=== PATIENT | male | born 1935 | race Caucasian/White ===

== ENCOUNTER 2017-12-26 12:02 | Inpatient (IN) | payer BC, OTHER ==
[2018-01-03] MEDS ORDERED: ceFAZolin SODIUM 1 GM VIAL IVPB ONE (15:50)
[2018-01-03] MEDS ORDERED: BUPIVACAINE HCL/PF 0.25% (2.5MG/ML) 10 ML VIAL ONE (16:25)
[2018-01-03] MEDS ORDERED: BUPIVACAINE LIPOSOME/PF (EXPAREL) 266 MG/20 ML VIAL NR ONE (16:45)
[2018-01-03] MEDS ORDERED: oxyCODONE HCL 5 MG TABLET PO PRN ×3 (17:39→17:45)
[2018-01-03] MEDS ORDERED: ACETAMINOPHEN 325 MG TABLET (FP) PO PRN (17:39)
[2018-01-03] MEDS ORDERED: ONDANSETRON 4 MG/2 ML VIAL IVPUSH PRN ×2 (17:39→21:57)
[2018-01-03] MEDS ORDERED: LACTATED RINGERS SOLUTION 1,000 ML IV SCH (17:45)
[2018-01-03] MEDS ORDERED: PROPOFOL 20 ML ONE ×11 (17:51→20:37)
[2018-01-03] MEDS ORDERED: GLYCOPYRROLATE 0.2 MG/1 ML VIAL ONE (17:59)
[2018-01-03] MEDS ORDERED: NEOSTIGMINE METHYLSULFATE 0.5 MG/ML - 10 ML MDV ONE (17:59)
[2018-01-03] MEDS ORDERED: PHENYLEPHRINE HCL 10 MG/1 ML SINGLE DOSE VIAL ONE (18:24)
[2018-01-03] MEDS ORDERED: ePHEDrine SULFATE 50 MG/1 ML AMPULE ONE (18:24)
--- NOTE | 2018-01-03 21:50 | PN ---
Progress Note (short form) - Note Progress Note: 82M s/p T12-L4 laminectomies, T9-pelvis PISF POD #0. -Admit to ICU post-op. -Pain control: per anaesthesia team; recommend MASTER WELDER; No NSAID's. -DVT PPx: - Mechanical only: JEB's, SCD's. -Incentive spirometry. -PT/OT/Rehab, OOB. -WBAT B/L LE. -q4h B/L LE NV checks. -Post-op antibiotics x 2 doses. -NPO until flatus. -f/u AM labs. -f/u drain output. -Care per ICU & medical hospitalist team. -Discharge planning: f/u 7-10 days after discharge at [facility] [place] office; call for appointment; . -Will follow. Mihir Roberts MD (Orthopaedic Surgery).
--- NOTE | 2018-01-03 21:55 | OP ---
Operative Note - Note: Operative Date: 01/03/18 Pre-Operative Diagnosis: L1, L3 compression fractures. Kyphosis. Spinal stenosis. Segmental instability. Progressive neurological decline Operation: 1. T12-L4 laminectomies. 2. T9-pelvis posterior instrumentation. 3. T9-S1 advertising intern-lateral arthrodesis. 4. Autograft. 5. Allograft. 6. Bone marrow aspirate Post-Operative Diagnosis: Same as Pre-op Surgeon: Mihir Roberts Flight Attendant/Inflight Manager: Shay Roberts Anesthesiologist/HOTEL SERVER: David Ayala Anesthesia: General Estimated Blood Loss (mls): 700 Drains & Tubes with Location: 1 x superficial drain Blood Volume Replaced (mls): 250 (Cell Saver) Fluid Volume Replaced (mls): 4,000 (Crystalloid) Operative Report Dictated: Yes
[2018-01-03] MEDS ORDERED: FUROSEMIDE 20 MG TABLET (FP) PO PRN (21:56)
[2018-01-03] MEDS ORDERED: PATIENT'S OWN MEDICATION (NON-FORMULARY) (Mometasone/Formoterol [Dulera 200 Mcg/5 Mcg Inha IH SCH (22:00)
[2018-01-03 22:45] LABS: HEMATOCRIT 31.6 % (35.4-49); HEMOGLOBIN 10.3 GM/dL (11.7-16.9); MCH 28.7 pg (25.7-33.7); MCHC 32.6 g/dl (32.0-35.9); MEAN CELL VOLUME 88.2 fl (80-96); MEAN PLT VOLUME 7.9 fl (7.5-11.1); PLATELET COUNT 225 K/MM3 (134-434); RBC 3.59 M/mm3 (4.00-5.60); RDW 13.9 % (11.9-15.9); WHITE BLOOD COUNT 4.4 K/mm3 (4.0-10.0)
[2018-01-03 23:09] LABS: ANION GAP 5 MMOL/L (8-16); BLOOD UREA NITROGEN 20 mg/dL (7-18); CALCIUM 8.3 mg/dL (8.5-10.1); CHLORIDE 103 mmol/L (98-107); CO2 30 mmol/L (21-32); CREATININE 1.1 mg/dL (0.7-1.3); GLUCOSE,RANDOM 146 mg/dL (74-106); POTASSIUM 5.4 mmol/L (3.5-5.1); SODIUM 138 mmol/L (136-145)
[2018-01-03] MEDS: ACETAMINOPHEN 1000 MG/100 ML VIAL (NON FORMULARY) IVPB SCH (23:25)
[2018-01-03] MEDS ORDERED: ACETAMINOPHEN INJECTION 100 ML IVPB ONE (23:33)
[2018-01-04] MEDS: ACETAMINOPHEN 1000 MG/100 ML VIAL (NON FORMULARY) IVPB SCH ×3 (00:19→13:28)
[2018-01-04] MEDS: CELECOXIB 200 MG CAPSULE PO SCH ×3 (00:19→21:14)
[2018-01-04] MEDS: GABAPENTIN 300 MG CAPSULE (FP) PO SCH ×2 (00:19→21:14)
[2018-01-04] MEDS: ALBUTEROL SO4 2.5/IPRATROPIUM 0.5 INH SOL 3 ML VIAL.NEB. NEB SCH ×4 (00:20→21:10)
--- NOTE | 2018-01-04 00:35 | CONSULT ---
Consultation: CONSULT REQUEST: We have been asked to medically evaluate this patient for critical care. HISTORY OF PRESENT ILLNESS: 82 y/o M w/PMH of COPD, chronic urinary retention, aortic aneurysm admitted to the ICU post-op s/p T12-L4 laminectomies, T9-pelvis PISF. Pt was lethargic s/p surgery and was unable to give history although when asked how he's doing he did respond by saying "I'm okay". He is arousable to physical stimuli but falls asleep almost immediately after waking. Otherwise further history was difficult to obtain and was unable to follow basic commands for neurological exam. According to previous notes in chart prior to surgery pt had pain in lower back for years causing him weakness in his legs and has fallen 4 times due to the weakness and uses a walker to ambulate. Estimated blood loss: 700 ml Cell-saver: 250 ml IVF replaced: 4 L Drains placed: 1 REVIEW OF SYSTEMS: unable to obtain due as pt is lethargic. PHYSICAL EXAMINATION Vital Signs Temperature 98 F 01/04/18 00:07 Pulse Rate 73 01/04/18 00:07 Respiratory Rate 15 01/04/18 00:07 Blood Pressure 134/61 01/04/18 00:07 O2 Sat by Pulse Oximetry (%) 93 L 01/04/18 00:07 GENERAL: Lethargic. Wakes only to physical stimuli but falls asleep immediately after waking. EYES:clera anicteric, conjunctiva clear. EARS, NOSE, THROAT: R hearing aid in place. LUNGS: Coarse breath sounds. Mild expiratory wheezing. Auscultated anteriorly. HEART: Difficult to appreciate over coarse breath sounds. And pt swatting stethoscope away when placed in aortic and pulmonic regions to listen to heart sounds. ABDOMEN: Soft, nontender, not distended. Hypoactive BS. LOWER EXTREMITIES: TEDs in place. Warm. NEUROLOGICAL: Lethargic. PSYCHIATRIC: Lethargic. SKIN: Warm, dry. Laboratory Results - last 24 hr 01/03/18 01/03/18 01/03/18 08:19 22:15 22:15 WBC 4.4 RBC 3.59 L Hgb 10.3 L Hct 31.6 L MCV 88.2 MCH 28.7 MCHC 32.6 RDW 13.9 Plt Count 225 MPV 7.9 Sodium 138 Potassium 5.4 H D Chloride 103 Carbon Dioxide 30 Anion Gap 5 L BUN 20 H Creatinine 1.1 Creat Clearance w eGFR > 60 Random Glucose 146 H D Calcium 8.3 L Blood Type A POSITIVE Antibody Screen Negative Crossmatch IS Only See Detail Active Medications Generic Name Dose Route Start Last Admin Trade Name Freq PRN Reason Stop Dose Admin Acetaminophen 650 mg 01/03/18 17:39 Tylenol - PO Q4H PRN Pain-PACU ORDER X 2 DOSES ONLY Acetaminophen 1,000 mg 01/03/18 22:00 01/03/18 23:25 Ofirmev Injection - IVPB 01/04/18 14:01 1,000 mg Q8H SABINA Administration Albuterol/Ipratropium 1 amp 01/03/18 22:15 Duoneb - NEB RTID SABINA Celecoxib 200 mg 01/03/18 22:00 Celebrex - PO BID SABINA Furosemide 20 mg 01/03/18 21:56 Lasix - PO DAILY PRN SWELLING Gabapentin 300 mg 01/03/18 22:00 Neurontin - PO HS SABINA Lactated Ringer's 1,000 mls @ 100 mls/hr 01/03/18 22:00 01/04/18 00:00 Lactated Ringers Solution IV 100 mls/hr ASDIR SABINA Administration Cefazolin Sodium/Dextrose 2 gm in 50 mls @ 100 mls/hr 01/04/18 04:00 Ancef 2 Gm Premixed Ivpb - IVPB 01/04/18 12:29 Q8H SABINA Non-Formulary Medication 200 mg 01/03/18 22:00 Cefpodoxime Proxetil PO BID SABINA Non-Formulary Medication 2 inh 01/03/18 22:00 Mometasone/Formoterol [Dulera 200 Mcg/5 Mcg Inhaler] IH BID SABINA Ondansetron HCl 4 mg 01/03/18 21:57 Zofran Injection IVPUSH Q6H PRN NAUSEA AND/OR VOMITING Oxycodone HCl 5 mg 01/03/18 17:39 Roxicodone - PO Q4H PRN PAIN LEVEL 1 - 3 Oxycodone HCl 10 mg 01/03/18 17:39 Roxicodone - PO Q4H PRN PAIN LEVEL 4 - 6 Oxycodone HCl 15 mg 01/03/18 17:45 Roxicodone - PO Q4H PRN PAIN LEVEL 7 - 10 Oxycodone HCl 10 mg 01/04/18 12:01 Oxycontin - PO 01/11/18 12:00 BID SABINA Prednisone 5 mg 01/04/18 10:00 Deltasone - PO DAILY [facility] ASSESSMENT/PLAN: 82 y/o M w/PMH of COPD, chronic urinary retention, aortic aneurysm admitted to the ICU post-op s/p T12-L4 laminectomies, T9-pelvis PISF. 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 Self catheterizes at home. -DVT ppx with SCDs, TEDss -Anemia at baseline, monitor H/H -Benadryl 25 mg IV PRN x1 for pruritis -Home meds restarted -Alb nebs -LR @ 100ml/hr Visit type - Emergency Visit Emergency Visit: No - New Patient This patient is new to me today: Yes Date on this admission: 01/04/18 - Critical Care Critical Care patient: Yes Total Critical Care Time (in minutes): 35 Critical Care Statement: The care of this patient involved high complexity decision making to prevent further life threatening deterioration of the patient 's condition and/or to evaluate & treat vital organ system(s) failure or risk of failure.
[2018-01-04] MEDS ORDERED: ceFAZolin 2 GRAM PREMIX BAG IVPB SCH (04:00)
[2018-01-04] MEDS: CEFAZOLIN 2 GM/D5W 2 GM/50 ML ML IVPB SCH ×2 (05:50→11:25)
[2018-01-04 06:22] LABS: HEMATOCRIT 28.5 % (35.4-49); HEMOGLOBIN 9.2 GM/dL (11.7-16.9); MCH 28.4 pg (25.7-33.7); MCHC 32.2 g/dl (32.0-35.9); MEAN CELL VOLUME 88.1 fl (80-96); MEAN PLT VOLUME 7.9 fl (7.5-11.1); PLATELET COUNT 187 K/MM3 (134-434); RBC 3.24 M/mm3 (4.00-5.60); RDW 13.8 % (11.9-15.9); WHITE BLOOD COUNT 5.7 K/mm3 (4.0-10.0)
--- NOTE | 2018-01-04 06:35 | OP ---
DATE OF OPERATION: 01/03/2018 SURGEON: Mihir Roberts M.D. UNDER PRESSER: Shay Roberts M.D. PREOPERATIVE DIAGNOSIS: Compression fracture L1, compression fracture L3 with associated kyphosis, spinal stenosis at each level, segmental instability, and progressive neurological decline. 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 ANESTHESIA: General. ANTIBIOTICS GIVEN: 2 g Kefzol; 1 g Kefzol given at the time of instrumentation and 1 g Kefzol given at the end of the procedure. BLOOD LOSS: About 800 mL, 350 mL given back to him. OPERATION PERFORMED: 1. Laminectomy T12 to L4. 2. Pedicle screw instrumentation T9 to S1. 3. Lumbar pelvic fixation and instrumentation. 4. Posterolateral arthrodesis T9 to S1. 5. Holman-Palomo osteotomy L1-2 and L3-4. 6. Use of biplanar fluoroscopy as well as neuromonitoring. 7. Use of bone marrow concentrate and autologous and allograft. 8. Complex wound closure, 40 cm. OPERATION DETAILS: Patient was correctly identified, brought in operating room, placed prone on a Hugo table. The lumbar spine was prepped in routine manner with Betadine scrub solution, wiped with alcohol, DuraPrep applied. A window drape applied. Timeout was called. Imaging was available for intraoperative evaluation. Concerns anemia in the presence of a man with COPD and very soft bone, investigations for Osteopenia postoperative will be performed. Midline incision performed from the tip of the spinous process of T8 to the tip of the spinous process of S2. The subperiosteal dissection was performed predominantly with Bovie and Longo elevators down the spinous process, over the lamina, across to the tip of the transverse processes, both left and right-hand inside. The verification of levels was verified with anatomical guidelines as well as lateral fluoroscopic x-ray with a [place] between L4-5. The fracture levels were identified using lateral fluoroscopic x- ray and because of the severe stenosis seen on the MRI and CT scan, a decompression from T12 to L4 was performed with complete freeing of the entire theca; pulsatile dura noted following this. Once this had been performed, Holman-Palomo osteotomy was performed, one at the L2 and one at 4-5. This was to encourage removal of kyphosis. The laminectomy that was performed with utilization of Leksell rongeurs as well as Kerrison up-cuts and a complete freeing of cord performed. We elected not to do any anterior column reconstruction because of the presence of an aortic graft in situ for a previous abdominal aortic aneurysm. This was a stented graft, but the large false aneurysm was already noted on the scans. The pedicles of T9 to S1 were utilized for fixation. We left out the pedicles of L3 and L1. Each pedicle was drilled with a 4-5 drill bit, palpated with a ball-tipped feeler. Each screw was seated and measured in the lumbar spine 45 x 7.5 and in the thoracic spine 45 x 6.5. Each screw was tested with intraoperative neuromonitoring and found to be well above the safe parameters accordingly. Because of the flimsy bone in S1, we elected to seat 2 large 9.5 x 70 screws placed into the ileum both left and right-hand side. This was through a Collins type approach to the ileum. A large segment of bone was resected to bury the actual cap for each of these screws. Two rods were contoured and placed into the heads of the screws and were fastened with the appropriate torque device. The fixation of the screws was more fixing the metal to the spine rather than spine to the metal. One crosslink applied, all screws were applied with the torque device. The pelvic screw fixation was enhanced by 2 crosslinks providing solid fixation. The wounds were thoroughly lavaged. The bone grafting was performed as follows : 120 mL of marrow was aspirated from the left posterior ileum, this was spun down for the CD34 cells and mixed with the autologous bone which had been milled in a [place] mill and expanded with allograft. This gave a level bone grafting into the intertransverse plane on left and right hand side. The bone grafting was mixed with the stem cells accordingly. The closure was a complex wound closure follows; muscle 1 Vicryl, fascia 1 Vicryl, subcutaneous 1 and 2-0, skin alma, drainage one 18-inch Hemovac x1. Overall comment: Operation was tedious, difficult, because of the deformity that was a hyperlordotic lumbar spine and marked kyphosis at the thoracolumbar junction, dangerous compression was dealt with with a complete uncomplicated freeing of the cord as noted above. Patient will be nursed in the ICU. For pain management, Duramorph and fentanyl was seeded intrathecally prior to skin incision, this by the anesthesia team, and then a combination of Marcaine and liposomal Marcaine was inserted into the lateral aspect of the foramina at each level operated on, hopefully to provide adequate pain management accordingly. MD SAMARA Dunn/[id number] MTDD
[2018-01-04 06:41] LABS: ANION GAP 5 MMOL/L (8-16); BLOOD UREA NITROGEN 22 mg/dL (7-18); CALCIUM 8.2 mg/dL (8.5-10.1); CHLORIDE 103 mmol/L (98-107); CO2 30 mmol/L (21-32); CREATININE 0.9 mg/dL (0.7-1.3); GLUCOSE,RANDOM 111 mg/dL (74-106); SODIUM 138 mmol/L (136-145)
[2018-01-04] MEDS: LACTATED RINGERS SOLUTION 1,000 ML IV SCH ×3 (07:32→21:14)
[2018-01-04] MEDS ORDERED: diphenhydrAMINE HCL 25 MG CAPSULE (FP) PO ONE (08:00)
[2018-01-04] MEDS ORDERED: PT OWN MED DRAWER 7, Y5N ONE ×4 (09:20→21:11)
[2018-01-04] MEDS: BUDESONIDE/FORMETEROL FUMARATE 160/4.5 mcg INHALER IH SCH ×2 (09:47→21:14)
[2018-01-04] MEDS ORDERED: predniSONE 5 MG TABLET (UD) PO SCH (10:00)
--- NOTE | 2018-01-04 10:00 | PN ---
Physical Exam: SUBJECTIVE: Patient seen and examined at bedside. Feels well Denies any complaints Slept well Was not using incentive spirometer Denies flatus or bowel movement Uses O2 at home (3L NC) only at night when he sleeps. OBJECTIVE: Vital Signs Period Temp Pulse Resp BP Sys/Hyman Pulse Ox Last 24 Hr 97.6 F-98.3 F 64-92 13-22 96-147/41-87 90-96 GENERAL: The patient is awake, alert, and fully oriented, in no acute distress. HEAD: Normal with no signs of trauma. EYES: PERRL, extraocular movements intact, sclera anicteric ENT: Dry mucous membranes. NECK: Trachea midline, full range of motion, supple. LUNGS: Bilateral Rhonchi HEART: Regular rate and rhythm, S1, S2 ABDOMEN: Soft, nontender, nondistended, normoactive bowel sounds, no guarding. Ventral hernia EXTREMITIES: well-perfused, no edema. NEUROLOGICAL: Cranial nerves II through XII grossly intact. Normal speech, gait not observed. sensation intact in all extremities. strength 4/5 in bilateral lower extremities. Strength 5/5 in upper extremities. PSYCH: Normal mood, normal affect. SKIN: Warm, dry, normal turgor Laboratory Results - last 24 hr 01/03/18 01/03/18 01/03/18 08:19 22:15 22:15 WBC 4.4 RBC 3.59 L Hgb 10.3 L Hct 31.6 L MCV 88.2 MCH 28.7 MCHC 32.6 RDW 13.9 Plt Count 225 MPV 7.9 Sodium 138 Potassium 5.4 H D Chloride 103 Carbon Dioxide 30 Anion Gap 5 L BUN 20 H Creatinine 1.1 Creat Clearance w eGFR > 60 Random Glucose 146 H D Calcium 8.3 L Blood Type A POSITIVE Antibody Screen Negative Crossmatch IS Only See Detail 01/04/18 01/04/18 05:30 05:30 WBC 5.7 RBC 3.24 L Hgb 9.2 L Hct 28.5 L MCV 88.1 MCH 28.4 MCHC 32.2 RDW 13.8 Plt Count 187 MPV 7.9 Sodium 138 Potassium 5.0 Chloride 103 Carbon Dioxide 30 Anion Gap 5 L BUN 22 H Creatinine 0.9 Creat Clearance w eGFR > 60 Random Glucose 111 H D Calcium 8.2 L Blood Type Antibody Screen Crossmatch IS Only Active Medications Generic Name Dose Route Start Last Admin Trade Name Freq PRN Reason Stop Dose Admin Acetaminophen 650 mg 01/03/18 17:39 Tylenol - PO Q4H PRN Pain-PACU ORDER X 2 DOSES ONLY Acetaminophen 1,000 mg 01/03/18 22:00 01/04/18 05:50 Ofirmev Injection - IVPB 01/04/18 14:01 1,000 mg Q8H SABINA Administration Albuterol/Ipratropium 1 amp 01/03/18 22:15 01/04/18 08:34 Duoneb - NEB 1 amp RTID SABINA Administration Budesonide/Formoterol Fumarate 2 puff 01/04/18 10:00 Symbicort 160/4.5mcg - IH BID SABINA Celecoxib 200 mg 01/03/18 22:00 01/04/18 00:19 Celebrex - PO Not Given BID SABINA Furosemide 20 mg 01/03/18 21:56 Lasix - PO DAILY PRN SWELLING Gabapentin 300 mg 01/03/18 22:00 01/04/18 00:19 Neurontin - PO Not Given HS SABINA Lactated Ringer's 1,000 mls @ 100 mls/hr 01/03/18 22:00 01/04/18 07:32 Lactated Ringers Solution IV 100 mls/hr ASDIR SABINA Administration Cefazolin Sodium/Dextrose 2 gm in 50 mls @ 100 mls/hr 01/04/18 04:00 05:50 Ancef 2 Gm Premixed Ivpb - IVPB 01/04/18 12:29 100 mls/hr Q8H SABINA Administration Non-Formulary Medication 200 mg 01/03/18 22:00 Cefpodoxime Proxetil PO BID SABINA Ondansetron HCl 4 mg 01/03/18 21:57 Zofran Injection IVPUSH Q6H PRN NAUSEA AND/OR VOMITING Oxycodone HCl 5 mg 01/03/18 17:39 Roxicodone - PO Q4H PRN PAIN LEVEL 1 - 3 Oxycodone HCl 10 mg 01/03/18 17:39 Roxicodone - PO Q4H PRN PAIN LEVEL 4 - 6 Oxycodone HCl 15 mg 01/03/18 17:45 Roxicodone - PO Q4H PRN PAIN LEVEL 7 - 10 Oxycodone HCl 10 mg 01/04/18 12:01 Oxycontin - PO 01/11/18 12:00 BID SABINA Prednisone 5 mg 01/04/18 10:00 Deltasone - PO DAILY SABINA ASSESSMENT/PLAN: 82 year old male with a hx of COPD, chronic urinary retention, spinal stenosis, and multiple falls is post op day 1 s/p T12-L4 laminectomies, T9-pelvis posterior instrumentation, T9-S1 corner former-lateral arthrodesis, Autograft, Allograft, and Bone marrow aspirate. Lower back pain: L1, L3 compression fractures, Kyphosis, Spinal stenosis, Segmental instability, Progressive neurological decline POD #1 s/p T12-L4 laminectomies, T9-pelvis posterior instrumentation, T9-S1 corner former-lateral arthrodesis, Autograft, Allograft, and Bone marrow aspirate. Patient tolerated the procedure well continue pain control with oxycontin BID and oxycodone PRN PT consult Incentive spirometry-taught patient how to use it. COPD not in exacerbation: Continue Duonebs patient on Dulera at home will order symbicort O2 PRN and while sleeping continue prednisone Chronic Urinary Retention Continue holder catheter for now To continue self catheterizing at home FEN LR @ 100ml/hr. Hold home dose of lasix for PRN leg swelling No electrolyte issues NPO for now will advance to clears when has flatus. Will Prophylaxis SCDs-No chemical PPx per spine surgery Protonix for GERD PT consult Case discussed with Dr. Woo Visit type - Emergency Visit Emergency Visit: Yes ED Registration Date: 01/03/18 Care time: The patient presented to the Emergency Department on the above date and was hospitalized for further evaluation of their emergent condition. - New Patient This patient is new to me today: Yes Date on this admission: 01/04/18 - Critical Care Critical Care patient: Yes Total Critical Care Time (in minutes): 45 Critical Care Statement: The care of this patient involved high complexity decision making to prevent further life threatening deterioration of the patient 's condition and/or to evaluate & treat vital organ system(s) failure or risk of failure.
--- NOTE | 2018-01-04 11:23 | PN ---
Physical Exam: SUBJECTIVE: Patient seen and examined. Pt. denies nausea and vomiting. Pt. has not needed pain medications except Tylenol. Pt. denies numbness, tingling SOB, chest pain or pain anywhere at this time. Pt. is hard of hearing. Pt. seems confused, forgets that his hearing aid is on his desk and thinks it is someone else's hearing aid. Pt. denies passing stool or gas. Spoke with the Pt.s daughter in the afternoon, and she as well as the Pt. say that the combination of oxycodone and trazodone is what causes the patient to get "loopy." Pt. is apprehensive about taking any oxycodone for that reason. Pt. has not received his home dose of trazodone yet during this hospital course. OBJECTIVE: Vital Signs Period Temp Pulse Resp BP Sys/Hyman Pulse Ox Last 24 Hr 97.6 F-98.3 F 64-92 13-22 96-147/41-87 90-96 GENERAL: The patient is awake A&O x2, very hard of hearing, lying in bed in mild distress. ENT: Ears normal, nares patent, dry mucous membranes. LUNGS: Coarse breath sounds, diffuse crackles heard anteriorly, no accessory muscle use. HEART: Iregular rate and rhythm difficult to hear over coarse breath sounds ABDOMEN: Soft, nontender, nondistended, normoactive bowel sounds, no guarding, no rebound EXTREMITIES: 2+ dorsal pedal pulses, cool to touch, well-perfused, no edema. PSYCH: Normal mood, normal affect. SKIN: Warm, dry, normal turgor, no rashes or lesions noted Laboratory Results - last 24 hr 01/03/18 01/03/18 01/03/18 08:19 22:15 22:15 WBC 4.4 RBC 3.59 L Hgb 10.3 L Hct 31.6 L MCV 88.2 MCH 28.7 MCHC 32.6 RDW 13.9 Plt Count 225 MPV 7.9 Sodium 138 Potassium 5.4 H D Chloride 103 Carbon Dioxide 30 Anion Gap 5 L BUN 20 H Creatinine 1.1 Creat Clearance w eGFR > 60 Random Glucose 146 H D Calcium 8.3 L Blood Type A POSITIVE Antibody Screen Negative Crossmatch IS Only See Detail 01/04/18 01/04/18 05:30 05:30 WBC 5.7 RBC 3.24 L Hgb 9.2 L Hct 28.5 L MCV 88.1 MCH 28.4 MCHC 32.2 RDW 13.8 Plt Count 187 MPV 7.9 Sodium 138 Potassium 5.0 Chloride 103 Carbon Dioxide 30 Anion Gap 5 L BUN 22 H Creatinine 0.9 Creat Clearance w eGFR > 60 Random Glucose 111 H D Calcium 8.2 L Blood Type Antibody Screen Crossmatch IS Only Active Medications Current Medications Acetaminophen (Tylenol -) 650 mg PO Q4H PRN PRN Reason: Pain-PACU ORDER X 2 DOSES ONLY Acetaminophen (Ofirmev Injection -) 1,000 mg IVPB Q8H [facility] Stop: 01/04/18 14:01 Last Admin: 01/04/18 05:50 Dose: 1,000 mg Albuterol/Ipratropium (Duoneb -) 1 amp NEB RTID [facility] Last Admin: 01/04/18 08:34 Dose: 1 amp Budesonide/Formoterol Fumarate (Symbicort 160/4.5mcg -) 2 puff IH BID [facility] Last Admin: 01/04/18 09:47 Dose: 2 puff Celecoxib (Celebrex -) 200 mg PO BID [facility] Last Admin: 01/04/18 09:46 Dose: 200 mg Gabapentin (Neurontin -) 300 mg PO HS [facility] Last Admin: 01/04/18 00:19 Dose: Not Given Lactated Ringer's (Lactated Ringers Solution) 1,000 mls @ 100 mls/hr IV ASDIR [facility] Last Admin: 01/04/18 07:32 Dose: 100 mls/hr Cefazolin Sodium/Dextrose (Ancef 2 Gm Premixed Ivpb -) 2 gm in 50 mls @ 100 mls /hr IVPB Q8H [facility] Stop: 01/04/18 12:29 Last Admin: 01/04/18 05:50 Dose: 100 mls/hr Methylprednisolone Sodium Succinate (Solu-Medrol -) 40 mg IVPUSH Q8H-IV [facility] Non-Formulary Medication (Cefpodoxime Proxetil) 200 mg PO BID [facility] Ondansetron HCl (Zofran Injection) 4 mg IVPUSH Q6H PRN PRN Reason: NAUSEA AND/OR VOMITING Oxycodone HCl (Roxicodone -) 5 mg PO Q4H PRN PRN Reason: PAIN LEVEL 1 - 3 Oxycodone HCl (Roxicodone -) 10 mg PO Q4H PRN PRN Reason: PAIN LEVEL 4 - 6 Oxycodone HCl (Roxicodone -) 15 mg PO Q4H PRN PRN Reason: PAIN LEVEL 7 - 10 Oxycodone HCl (Oxycontin -) 10 mg PO BID SABINA Stop: 01/11/18 12:00 Pantoprazole Sodium (Protonix -) 40 mg PO DAILY SABINA ASSESSMENT/PLAN: 82 y/o M w/PMH of COPD, chronic urinary retention, aortic aneurysm admitted to the ICU post-op s/p T12-L4 laminectomies, T9-pelvis PISF. 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 is restarted on Trazodone as noted above. Post-op drain is draining serosanquinous fluid PT/OT; WBAT q4h B/L LE neurovascular checks Received 1/2 post-op doses of Abx. (Ancef 2 gm) -Pruritis resolving c/w Benadryl 25mg PRN of pruritis (may be 2/2 Bupivacaine) can go up to 50mg if needed monitor for worsening symptoms #Pulmonary -COPD Duo Nebs qhH PRN Start Solumedrol 40mg q8H Hold home Prednisone 5mg c/w Incentive Spirometry q15 min f/u CXR #Nephrology -Chronic urinary retention Reyes in place draining clear nacho colored urine with good urine output #Neurology -Hx. of Shingles c/w Gabapentin 300mg PO HS #Gastroenterology -Nausea and Vomiting Ondansetron 4mg q6H PRN -Constipation Miralax PO, if Pt. does not have bowel movement can increase to BID #Cardiovascular -Anemia Pt. is currently at baseline Will monitor H/H #F/E/N -NPO until Pt. passes flatus -monitor electrolytes and replete as needed -Lactated Ringer @ 100mls/hr -received 4 L fluids noy-operatively #DVT PPx. SCDs ONLY No NSAIDs -per Dr. Roberts Visit type - Emergency Visit Emergency Visit: No - New Patient This patient is new to me today: Yes Date on this admission: 01/04/18 - Critical Care Critical Care patient: No - Discharge Referral Referred to [facility] Med P.C.: No
[2018-01-04] MEDS: methylPREDNISolone NA SUCC 40 MG/1 ML VIAL IVPUSH SCH ×2 (11:25→17:13)
[2018-01-04] MEDS: PANTOPRAZOLE 40 MG TABLET (FP) PO SCH (11:25)
--- NOTE | 2018-01-04 11:36 | PN ---
Teaching Attending Note Name of Resident: Mihir James ATTENDING PHYSICIAN STATEMENT I saw and evaluated the patient. I reviewed the resident's note and discussed the case with the resident. I agree with the resident's findings and plan as documented. SUBJECTIVE: Pt seen and examined in the ICU. No pain at this time. Denies shortness of breath or chest pain but with audible rhonchi. OBJECTIVE: Vital Signs Period Temp Pulse Resp BP Sys/Hyman Pulse Ox Last 24 Hr 97.6 F-98.3 F 64-92 13-22 96-147/41-87 90-96 Intake & Output 01/01/18 01/02/18 01/03/18 01/04/18 23:59 23:59 23:59 23:59 Intake Total 4400 850 Output Total 3800 2075 Balance 600 -1225 Weight 93.638 kg Gen: mildly tachypneic at rest Heart: RRR Lung: bilateral rhonchi Abd: soft, nontender Ext: no edema Drain with serosanguinous fluid CBC, BMP 01/04/18 05:30 01/04/18 05:30 Active Medications Acetaminophen (Tylenol -) 650 mg PO Q4H PRN PRN Reason: Pain-PACU ORDER X 2 DOSES ONLY Acetaminophen (Ofirmev Injection -) 1,000 mg IVPB Q8H [facility] Stop: 01/04/18 14:01 Last Admin: 01/04/18 05:50 Dose: 1,000 mg Albuterol/Ipratropium (Duoneb -) 1 amp NEB RTID [facility] Last Admin: 01/04/18 08:34 Dose: 1 amp Budesonide/Formoterol Fumarate (Symbicort 160/4.5mcg -) 2 puff IH BID [facility] Last Admin: 01/04/18 09:47 Dose: 2 puff Celecoxib (Celebrex -) 200 mg PO BID [facility] Last Admin: 01/04/18 09:46 Dose: 200 mg Gabapentin (Neurontin -) 300 mg PO HS [facility] Last Admin: 01/04/18 00:19 Dose: Not Given Lactated Ringer's (Lactated Ringers Solution) 1,000 mls @ 100 mls/hr IV ASDIR [facility] Last Admin: 01/04/18 07:32 Dose: 100 mls/hr Cefazolin Sodium/Dextrose (Ancef 2 Gm Premixed Ivpb -) 2 gm in 50 mls @ 100 mls /hr IVPB Q8H [facility] Stop: 01/04/18 12:29 Last Admin: 01/04/18 11:25 Dose: 100 mls/hr Methylprednisolone Sodium Succinate (Solu-Medrol -) 40 mg IVPUSH Q8H-IV [facility] Last Admin: 01/04/18 11:25 Dose: 40 mg Non-Formulary Medication (Cefpodoxime Proxetil) 200 mg PO BID [facility] Ondansetron HCl (Zofran Injection) 4 mg IVPUSH Q6H PRN PRN Reason: NAUSEA AND/OR VOMITING Oxycodone HCl (Roxicodone -) 5 mg PO Q4H PRN PRN Reason: PAIN LEVEL 1 - 3 Oxycodone HCl (Roxicodone -) 10 mg PO Q4H PRN PRN Reason: PAIN LEVEL 4 - 6 Oxycodone HCl (Roxicodone -) 15 mg PO Q4H PRN PRN Reason: PAIN LEVEL 7 - 10 Oxycodone HCl (Oxycontin -) 10 mg PO BID [facility] Stop: 01/11/18 12:00 Pantoprazole Sodium (Protonix -) 40 mg PO DAILY [facility] Last Admin: 01/04/18 11:25 Dose: 40 mg ASSESSMENT AND PLAN: Lumbar Compression Fractures s/p T12-L4 Laminectomies/T9-pelvis instrumentation/T9-S1 posterior lateral arthrodesis Acute COPD Exacerbation Chronic Hypoxic Respiratory Failure - start IV medrol - inhaled bronchodilators standing and PRN - check CXR - pain control - incentive spirometry - on empiric antibiotics - monitor drain output - O2 to keep SpO2 >90% - PO when flatus - d/c holder when OOB - DVT prophylaxis
[2018-01-04] MEDS: oxyCODONE HCL 10 MG SUSTAINED ACTING TABLET PO SCH ×2 (12:00→21:14)
--- NOTE | 2018-01-04 12:32 | PN ---
Teaching Attending Note Name of Resident: Nahid Mata ATTENDING PHYSICIAN STATEMENT I saw and evaluated the patient. I reviewed the resident's note and discussed the case with the resident. I agree with the resident's findings and plan as documented. SUBJECTIVE: Patient doing well. He denies pain, SOB. Not passing flatus, but denies abdominal pain, nausea. OBJECTIVE: Vital Signs Period Temp Pulse Resp BP Sys/Hyman Pulse Ox Last 24 Hr 97.6 F-98.3 F 64-92 13-22 96-147/41-87 90-96 HEART: S1S2, RRR LUNGS: Bilateral rhonchi ABDOMEN: Soft, non-tender, non-distended, normal BS EXTREMITIES: No edema Laboratory Results - last 24 hr 01/03/18 01/03/18 01/03/18 08:19 22:15 22:15 WBC 4.4 RBC 3.59 L Hgb 10.3 L Hct 31.6 L MCV 88.2 MCH 28.7 MCHC 32.6 RDW 13.9 Plt Count 225 MPV 7.9 Sodium 138 Potassium 5.4 H D Chloride 103 Carbon Dioxide 30 Anion Gap 5 L BUN 20 H Creatinine 1.1 Creat Clearance w eGFR > 60 Random Glucose 146 H D Calcium 8.3 L Blood Type A POSITIVE Antibody Screen Negative Crossmatch IS Only See Detail 01/04/18 01/04/18 05:30 05:30 WBC 5.7 RBC 3.24 L Hgb 9.2 L Hct 28.5 L MCV 88.1 MCH 28.4 MCHC 32.2 RDW 13.8 Plt Count 187 MPV 7.9 Sodium 138 Potassium 5.0 Chloride 103 Carbon Dioxide 30 Anion Gap 5 L BUN 22 H Creatinine 0.9 Creat Clearance w eGFR > 60 Random Glucose 111 H D Calcium 8.2 L Blood Type Antibody Screen Crossmatch IS Only Current Medications Generic Name Dose Route Start Last Admin Trade Name Freq PRN Reason Stop Dose Admin Acetaminophen 650 mg 01/03/18 17:39 Tylenol - PO Q4H PRN Pain-PACU ORDER X 2 DOSES ONLY Acetaminophen 1,000 mg 01/03/18 22:00 01/04/18 05:50 Ofirmev Injection - IVPB 01/04/18 14:01 1,000 mg Q8H [facility] Administration Albuterol/Ipratropium 1 amp 01/03/18 22:15 01/04/18 08:34 Duoneb - NEB 1 amp RTID [facility] Administration Budesonide/Formoterol Fumarate 2 puff 01/04/18 10:00 01/04/18 09:47 Symbicort 160/4.5mcg - IH 2 puff BID [facility] Administration Celecoxib 200 mg 01/03/18 22:00 01/04/18 09:46 Celebrex - PO 200 mg BID [facility] Administration Gabapentin 300 mg 01/03/18 22:00 01/04/18 00:19 Neurontin - PO Not Given HS [facility] Lactated Ringer's 1,000 mls @ 100 mls/hr 01/03/18 22:00 01/04/18 07:32 Lactated Ringers Solution IV 100 mls/hr ASDIR [facility] Administration Methylprednisolone Sodium Succinate 40 mg 01/04/18 11:00 01/04/18 11:25 Solu-Medrol - IVPUSH 40 mg Q8H-IV [facility] Administration Non-Formulary Medication 200 mg 01/03/18 22:00 Cefpodoxime Proxetil PO BID [facility] Ondansetron HCl 4 mg 01/03/18 21:57 Zofran Injection IVPUSH Q6H PRN NAUSEA AND/OR VOMITING Oxycodone HCl 5 mg 01/03/18 17:39 Roxicodone - PO Q4H PRN PAIN LEVEL 1 - 3 Oxycodone HCl 10 mg 01/03/18 17:39 Roxicodone - PO Q4H PRN PAIN LEVEL 4 - 6 Oxycodone HCl 15 mg 01/03/18 17:45 Roxicodone - PO Q4H PRN PAIN LEVEL 7 - 10 Oxycodone HCl 10 mg 01/04/18 12:01 Oxycontin - PO 01/11/18 12:00 BID [facility] Pantoprazole Sodium 40 mg 01/04/18 11:00 01/04/18 11:25 Protonix - PO 40 mg DAILY [facility] Administration ASSESSMENT AND PLAN: This is an 82 year old man a history of COPD, chronic urinary retention 1. Lumbar spinal stenosis, lumbar compression fractures, lumbar kyphosis - s/p T12-L4 laminectomies, T9-pelvis posterior instrumentation, T9-S1 posterolateral arthrodesis 01/03 - Pain control - Incentive spirometer - Ambulation - Physical therapy 2. Acute exacerbation of COPD - SoluMedrol started - Continue Symbicort, DuoNeb, oxygen 3. Chronic hypoxic respiratory failure - Oxygen to maintain saturation >90% 4. Anemia - Likely acute blood loss on chronic anemia - Monitor hemoglobin 5. Chronic urinary retention - Has Reyes catheter - At home, he does self-catheterization
--- NOTE | 2018-01-04 13:12 | PN ---
Progress Note, Physician Chief Complaint: day #1 s/p complex spine surgery, with duramorph/fentanyl spinal - Current Medication List Current Medications: Active Medications Acetaminophen (Tylenol -) 650 mg PO Q4H PRN PRN Reason: Pain-PACU ORDER X 2 DOSES ONLY Acetaminophen (Ofirmev Injection -) 1,000 mg IVPB Q8H [facility] Stop: 01/04/18 14:01 Last Admin: 01/04/18 05:50 Dose: 1,000 mg Albuterol/Ipratropium (Duoneb -) 1 amp NEB RTID [facility] Last Admin: 01/04/18 08:34 Dose: 1 amp Budesonide/Formoterol Fumarate (Symbicort 160/4.5mcg -) 2 puff IH BID [facility] Last Admin: 01/04/18 09:47 Dose: 2 puff Celecoxib (Celebrex -) 200 mg PO BID [facility] Last Admin: 01/04/18 09:46 Dose: 200 mg Gabapentin (Neurontin -) 300 mg PO HS [facility] Last Admin: 01/04/18 00:19 Dose: Not Given Lactated Ringer's (Lactated Ringers Solution) 1,000 mls @ 100 mls/hr IV ASDIR [facility] Last Admin: 01/04/18 07:32 Dose: 100 mls/hr Methylprednisolone Sodium Succinate (Solu-Medrol -) 40 mg IVPUSH Q8H-IV [facility] Last Admin: 01/04/18 11:25 Dose: 40 mg Non-Formulary Medication (Cefpodoxime Proxetil) 200 mg PO BID [facility] Ondansetron HCl (Zofran Injection) 4 mg IVPUSH Q6H PRN PRN Reason: NAUSEA AND/OR VOMITING Oxycodone HCl (Roxicodone -) 5 mg PO Q4H PRN PRN Reason: PAIN LEVEL 1 - 3 Oxycodone HCl (Roxicodone -) 10 mg PO Q4H PRN PRN Reason: PAIN LEVEL 4 - 6 Oxycodone HCl (Roxicodone -) 15 mg PO Q4H PRN PRN Reason: PAIN LEVEL 7 - 10 Oxycodone HCl (Oxycontin -) 10 mg PO BID [facility] Stop: 01/11/18 12:00 Pantoprazole Sodium (Protonix -) 40 mg PO DAILY [facility] Last Admin: 01/04/18 11:25 Dose: 40 mg - Objective Vital Signs: Vital Signs Temperature 98.0 F 01/04/18 12:00 Pulse Rate 74 01/04/18 12:00 Respiratory Rate 14 01/04/18 12:00 Blood Pressure 116/53 01/04/18 12:00 O2 Sat by Pulse Oximetry (%) 93 L 01/04/18 00:07 Labs: CBC, BMP 01/04/18 05:30 01/04/18 05:30 Assessment/Plan Pt resting comfortably in bed, with minimal to no pain. No apparent anesthetic issues/complications
[2018-01-04] MEDS: POLYETHYLENE GLYCOL 3350 119 GM BTL PO SCH (14:36)
[2018-01-04] MEDS ORDERED: ACETAMINOPHEN 1000 MG/100 ML VIAL (NON FORMULARY) IVPB ONE (20:53)
[2018-01-05] MEDS: methylPREDNISolone NA SUCC 40 MG/1 ML VIAL IVPUSH SCH ×2 (02:16→09:24)
[2018-01-05 06:34] LABS: HEMATOCRIT 27.9 % (35.4-49); HEMOGLOBIN 9.2 GM/dL (11.7-16.9); MCH 28.7 pg (25.7-33.7); MCHC 32.9 g/dl (32.0-35.9); MEAN PLT VOLUME 7.6 fl (7.5-11.1); PLATELET COUNT 182 K/MM3 (134-434); RBC 3.21 M/mm3 (4.00-5.60); RDW 13.7 % (11.9-15.9); WHITE BLOOD COUNT 5.3 K/mm3 (4.0-10.0)
[2018-01-05 06:52] LABS: ANION GAP 9 MMOL/L (8-16); BLOOD UREA NITROGEN 20 mg/dL (7-18); CALCIUM 8.3 mg/dL (8.5-10.1); CHLORIDE 103 mmol/L (98-107); CO2 27 mmol/L (21-32); CREATININE 0.9 mg/dL (0.7-1.3); GLUCOSE,RANDOM 131 mg/dL (74-106); MAGNESIUM 2.1 mg/dL (1.8-2.4); PHOSPHOROUS 2.7 mg/dL (2.5-4.9); POTASSIUM 4.5 mmol/L (3.5-5.1); SODIUM 139 mmol/L (136-145)
[2018-01-05] MEDS: ALBUTEROL SO4 2.5/IPRATROPIUM 0.5 INH SOL 3 ML VIAL.NEB. NEB SCH ×3 (08:13→20:54)
[2018-01-05] MEDS: oxyCODONE HCL 10 MG SUSTAINED ACTING TABLET PO SCH ×2 (09:09→21:25)
[2018-01-05] MEDS ORDERED: PT OWN MED DRAWER 7, Y5N ONE ×5 (09:20→21:47)
[2018-01-05] MEDS: BUDESONIDE/FORMETEROL FUMARATE 160/4.5 mcg INHALER IH SCH ×2 (09:22→21:24)
[2018-01-05] MEDS: PANTOPRAZOLE 40 MG TABLET (FP) PO SCH (09:23)
[2018-01-05] MEDS: CELECOXIB 200 MG CAPSULE PO SCH ×2 (09:23→21:24)
[2018-01-05] MEDS: POLYETHYLENE GLYCOL 3350 119 GM BTL PO SCH (09:33)
[2018-01-05] MEDS ORDERED: ACETAMINOPHEN 1000 MG/100 ML VIAL (NON FORMULARY) IVPB PRN (11:14)
--- NOTE | 2018-01-05 11:47 | PN ---
Physical Exam: SUBJECTIVE: Patient seen and examined at bedside in the ICU slept well complains of back pain but does not want to take the oxycodone because he does not want to be "loopy" Drain put out 115ml in 24 hours using incentive spirometer having flatus no BM OBJECTIVE: Vital Signs Period Temp Pulse Resp BP Sys/Hyman Pulse Ox Last 24 Hr 98.0 F-98.8 F 74-83 14-20 116-156/53-85 93-96 GENERAL: The patient is awake, alert, and fully oriented, in no acute distress. HEAD: Normal with no signs of trauma. EYES: PERRL, extraocular movements intact, sclera anicteric ENT: Dry mucous membranes. NECK: Trachea midline, full range of motion, supple. LUNGS: Bilateral Rhonchi. Not wheezing able to speak in full sentences. HEART: Regular rate and rhythm, S1, S2 ABDOMEN: Soft, nontender, nondistended, normoactive bowel sounds, no guarding. Ventral hernia EXTREMITIES: well-perfused, no edema. NEUROLOGICAL: Cranial nerves II through XII grossly intact. Normal speech, gait not observed. sensation intact in all extremities. strength 4/5 in bilateral lower extremities. Strength 5/5 in upper extremities. PSYCH: Normal mood, normal affect. SKIN: Warm, dry, normal turgor Laboratory Results - last 24 hr 01/05/18 01/05/18 05:30 05:30 WBC 5.3 RBC 3.21 L Hgb 9.2 L Hct 27.9 L MCV 87.0 MCH 28.7 MCHC 32.9 RDW 13.7 Plt Count 182 MPV 7.6 Sodium 139 Potassium 4.5 Chloride 103 Carbon Dioxide 27 Anion Gap 9 BUN 20 H Creatinine 0.9 Creat Clearance w eGFR > 60 Random Glucose 131 H Calcium 8.3 L Phosphorus 2.7 Magnesium 2.1 Active Medications Generic Name Dose Route Start Last Admin Trade Name Freq PRN Reason Stop Dose Admin Acetaminophen 650 mg 01/03/18 17:39 Tylenol - PO Q4H PRN Pain-PACU ORDER X 2 DOSES ONLY Acetaminophen 1,000 mg 01/05/18 11:14 01/05/18 11:30 Ofirmev Injection - IVPB 1,000 mg Q6H PRN Administration PAIN Albuterol/Ipratropium 1 amp 01/03/18 22:15 01/05/18 08:13 Duoneb - NEB 1 amp RTID [facility] Administration Budesonide/Formoterol Fumarate 2 puff 01/04/18 10:00 01/05/18 09:22 Symbicort 160/4.5mcg - IH 2 puff BID [facility] Administration Celecoxib 200 mg 01/03/18 22:00 01/05/18 09:23 Celebrex - PO 200 mg BID [facility] Administration Gabapentin 300 mg 01/03/18 22:00 01/04/18 21:14 Neurontin - PO 300 mg HS [facility] Administration Non-Formulary Medication 200 mg 01/03/18 22:00 Cefpodoxime Proxetil PO BID [facility] Ondansetron HCl 4 mg 01/03/18 21:57 Zofran Injection IVPUSH Q6H PRN NAUSEA AND/OR VOMITING Oxycodone HCl 5 mg 01/03/18 17:39 Roxicodone - PO Q4H PRN PAIN LEVEL 1 - 3 Oxycodone HCl 10 mg 01/03/18 17:39 Roxicodone - PO Q4H PRN PAIN LEVEL 4 - 6 Oxycodone HCl 15 mg 01/03/18 17:45 Roxicodone - PO Q4H PRN PAIN LEVEL 7 - 10 Oxycodone HCl 10 mg 01/04/18 12:01 01/05/18 09:09 Oxycontin - PO 01/11/18 12:00 Not Given BID [facility] Pantoprazole Sodium 40 mg 01/04/18 11:00 01/05/18 09:23 Protonix - PO 40 mg DAILY [facility] Administration Polyethylene Glycol 17 gm 01/04/18 13:45 01/05/18 09:33 Miralax (For Daily Use) - PO 17 gm DAILY [facility] Administration ASSESSMENT/PLAN: 82 year old male with a hx of COPD, chronic urinary retention, spinal stenosis, and multiple falls is post op day # 2 s/p T12-L4 laminectomies, T9-pelvis posterior instrumentation, T9-S1 superannuation clerk-lateral arthrodesis, Autograft, Allograft, and Bone marrow aspirate. Lower back pain: L1, L3 compression fractures, Kyphosis, Spinal stenosis, Segmental instability, Progressive neurological decline POD #2 s/p T12-L4 laminectomies, T9-pelvis posterior instrumentation, T9-S1 superannuation clerk-lateral arthrodesis, Autograft, Allograft, and Bone marrow aspirate. Patient tolerated the procedure well continue pain control with oxycontin BID and oxycodone PRN PT consult Incentive spirometry-continues to use incentive spirometer COPD not in exacerbation: Continue Duonebs patient given solu-medrol yesterday IV Will stop solumedrol will restart home dose of prednisone 5mg po daily patient on Dulera at home on symbicort here O2 PRN and while sleeping Chronic Urinary Retention Continue holder catheter for now To continue self catheterizing at home Chronic constipation: will give relistor 12mg sq daily for [address] Roberts chronic Anemia. blood loss 700ml in OR Hb trended for 3 days and stable will stop trending FEN Stop IVF. Continue to hold lasix PRN lasix No electrolyte issues tolerated FLD will advance to regular diet Prophylaxis SCDs-No chemical PPx per spine surgery Protonix for GERD PT consult Case discussed with Dr. Woo and Dr. Jacobs Visit type - Emergency Visit Emergency Visit: No - New Patient This patient is new to me today: No - Critical Care Critical Care patient: Yes Total Critical Care Time (in minutes): 35 Critical Care Statement: The care of this patient involved high complexity decision making to prevent further life threatening deterioration of the patient 's condition and/or to evaluate & treat vital organ system(s) failure or risk of failure.
--- NOTE | 2018-01-05 11:51 | PN ---
Progress Note (short form) - Note Progress Note: surgery POD#2 T12-L4 laminectomies. 2. T9-pelvis posterior instrumentation. 3. T9-S1 manager functional-lateral arthrodesis. 4. Autograft. 5. Allograft. 6. Bone marrow aspirate. Patient seen and examined while in the chair. Patient states his pain is controlled with IV Tylenol, he is refusing the oxycodone and only has pain with movement and this is his first time OOB since the surgery. He still has the holder in, he is tolerating his diet and denies any fever, chest pain, h/a, N /V or chills. Vital Signs Temp 98.0 F 01/05/18 10:00 Pulse 79 01/05/18 10:00 Resp 16 01/05/18 10:00 BP 140/63 01/05/18 10:00 Pulse Ox 96 01/05/18 08:00 Intake & Output 01/04/18 01/04/18 01/05/18 11:59 23:59 11:59 Intake Total 850 1750 1050 Output Total 2075 1590 920 Balance -1225 160 130 Weight 206 lb 208 lb 4 oz Intake: IV 600 1600 950 Lactated Ringers Solution 600 1600 950 1,000 ml @ 100 mls/hr IV ASDIR [facility] Rx#: [id number] IVPB 250 150 100 Oral 0 Output: Drainage 75 40 20 Back 75 40 20 Urine 2000 1550 900 Holder 1900 1550 900 Other: Voiding Method Indwelling Catheter Indwelling Catheter Indwelling Catheter Bowel Movement No No Height 6 ft 2 in Body Mass Index (BMI) 26.4 Weight Measurement Method Built in [facility] CBC, BMP 01/05/18 05:30 01/05/18 05:30 PE: A&Ox3, NAD unlabored resp on 4L NC. Back -Hemovac drain at left superior incision removed with tip fully intact, drain site clean and dry with no active d/c and pressure dressing applied, midline incision c/d/i with alma in situ, surrounding tissue intact with no erythema, edema, collection or d/c, incision dressed with xeroform, 4x4 and tegaderms, B/L LE compartments soft and non-tender, with 5/5 dorsiflexion and +1DP pulses. teds inplace. Problem List - Problems (1) S/P spinal fusion Assessment/Plan: POD #2 T12-L4 laminectomies. 2. T9-pelvis posterior instrumentation. 3. T9-S1 manager functional-lateral arthrodesis. 4. Autograft. 5. Allograft. 6. Bone marrow aspirate 1) continue DVT prophylaixis 2) OOB with PT 3) pain control 4) Keep incision clean and dry 5) transfer to floor today 6) d/c planning Evaluation and plan discussed with Dr. Roberts Code(s): Z98.1 - ARTHRODESIS STATUS
--- NOTE | 2018-01-05 11:52 | PN ---
Physical Exam: SUBJECTIVE: Patient seen and examined at bedside in the ICU he feels well he states he has back pain but does not want to take the oxycodone because he does not want to fee "loopy" no issues overnight using the incentive spirometer OBJECTIVE: Vital Signs Period Temp Pulse Resp BP Sys/Hyman Pulse Ox Last 24 Hr 98.0 F-98.8 F 74-83 14-20 116-156/53-85 93-96 GENERAL: The patient is awake, alert, and fully oriented, in no acute distress. HEAD: Normal with no signs of trauma. EYES: PERRL, extraocular movements intact, sclera anicteric, conjunctiva clear. No ptosis. ENT: Ears normal, nares patent, oropharynx clear without exudates, moist mucous membranes. NECK: Trachea midline, full range of motion, supple. LUNGS: Breath sounds equal, clear to auscultation bilaterally, no wheezes, no crackles, no accessory muscle use. HEART: Regular rate and rhythm, S1, S2 without murmur, rub or gallop. ABDOMEN: Soft, nontender, nondistended, normoactive bowel sounds, no guarding, no rebound, no hepatosplenomegaly, no masses. EXTREMITIES: 2+ pulses, warm, well-perfused, no edema. NEUROLOGICAL: Cranial nerves II through XII grossly intact. Normal speech, gait not observed. PSYCH: Normal mood, normal affect. SKIN: Warm, dry, normal turgor, no rashes or lesions noted Laboratory Results - last 24 hr 01/05/18 01/05/18 05:30 05:30 WBC 5.3 RBC 3.21 L Hgb 9.2 L Hct 27.9 L MCV 87.0 MCH 28.7 MCHC 32.9 RDW 13.7 Plt Count 182 MPV 7.6 Sodium 139 Potassium 4.5 Chloride 103 Carbon Dioxide 27 Anion Gap 9 BUN 20 H Creatinine 0.9 Creat Clearance w eGFR > 60 Random Glucose 131 H Calcium 8.3 L Phosphorus 2.7 Magnesium 2.1 Active Medications Generic Name Dose Route Start Last Admin Trade Name Freq PRN Reason Stop Dose Admin Acetaminophen 650 mg 01/03/18 17:39 Tylenol - PO Q4H PRN Pain-PACU ORDER X 2 DOSES ONLY Acetaminophen 1,000 mg 01/05/18 11:14 01/05/18 11:30 Ofirmev Injection - IVPB 1,000 mg Q6H PRN Administration PAIN Albuterol/Ipratropium 1 amp 01/03/18 22:15 01/05/18 08:13 Duoneb - NEB 1 amp RTID [facility] Administration Budesonide/Formoterol Fumarate 2 puff 01/04/18 10:00 01/05/18 09:22 Symbicort 160/4.5mcg - IH 2 puff BID [facility] Administration Celecoxib 200 mg 01/03/18 22:00 01/05/18 09:23 Celebrex - PO 200 mg BID [facility] Administration Gabapentin 300 mg 01/03/18 22:00 01/04/18 21:14 Neurontin - PO 300 mg HS [facility] Administration Methylnaltrexone [place] 12 mg 01/05/18 12:00 Relistor - SQ 01/06/18 10:01 DAILY [facility] Non-Formulary Medication 200 mg 01/03/18 22:00 Cefpodoxime Proxetil PO BID [facility] Ondansetron HCl 4 mg 01/03/18 21:57 Zofran Injection IVPUSH Q6H PRN NAUSEA AND/OR VOMITING Oxycodone HCl 5 mg 01/03/18 17:39 Roxicodone - PO Q4H PRN PAIN LEVEL 1 - 3 Oxycodone HCl 10 mg 01/03/18 17:39 Roxicodone - PO Q4H PRN PAIN LEVEL 4 - 6 Oxycodone HCl 15 mg 01/03/18 17:45 Roxicodone - PO Q4H PRN PAIN LEVEL 7 - 10 Oxycodone HCl 10 mg 01/04/18 12:01 01/05/18 09:09 Oxycontin - PO 01/11/18 12:00 Not Given BID [facility] Pantoprazole Sodium 40 mg 01/04/18 11:00 01/05/18 09:23 Protonix - PO 40 mg DAILY [facility] Administration Polyethylene Glycol 17 gm 01/04/18 13:45 01/05/18 09:33 Miralax (For Daily Use) - PO 17 gm DAILY [facility] Administration Prednisone 5 mg 01/05/18 12:00 Deltasone - PO DAILY [facility] ASSESSMENT/PLAN: 82 year old male with a hx of COPD, chronic urinary retention, spinal stenosis, and multiple falls is post op day 1 s/p T12-L4 laminectomies, T9-pelvis posterior instrumentation, T9-S1 communications technologist-lateral arthrodesis, Autograft, Allograft, and Bone marrow aspirate. Lower back pain: L1, L3 compression fractures, Kyphosis, Spinal stenosis, Segmental instability, Progressive neurological decline POD #1 s/p T12-L4 laminectomies, T9-pelvis posterior instrumentation, T9-S1 communications technologist-lateral arthrodesis, Autograft, Allograft, and Bone marrow aspirate. Patient tolerated the procedure well continue pain control with oxycontin BID and oxycodone PRN PT consult Incentive spirometry-taught patient how to use it. COPD not in exacerbation: Continue Duonebs patient on Dulera at home will order symbicort O2 PRN and while sleeping continue prednisone Chronic Urinary Retention Continue holder catheter for now To continue self catheterizing at home FEN LR @ 100ml/hr. Hold home dose of lasix for PRN leg swelling No electrolyte issues NPO for now will advance to clears when has flatus. Will Prophylaxis SCDs-No chemical PPx per spine surgery Protonix for GERD PT consult Case discussed with Dr. Woo
--- NOTE | 2018-01-05 12:12 | PN ---
Teaching Attending Note Name of Resident: Mihir James ATTENDING PHYSICIAN STATEMENT I saw and evaluated the patient. I reviewed the resident's note and discussed the case with the resident. I agree with the resident's findings and plan as documented. SUBJECTIVE: Pt seen and examined in the ICU. Pain controlled with current regimen. Denies shortness of breath, cough or wheezing. OBJECTIVE: Vital Signs Period Temp Pulse Resp BP Sys/Hyman Pulse Ox Last 24 Hr 98.0 F-98.8 F 75-83 15-20 125-156/56-85 93-96 Intake & Output 01/02/18 01/03/18 01/04/18 01/05/18 23:59 23:59 23:59 23:59 Intake Total 4400 2600 1050 Output Total 3800 3665 920 Balance 600 -1065 130 Weight 93.44 kg 94.461 kg Gen: mildly tachypneic with exertion Heart: RRR Lung: scattered rhonchi Abd: soft, nontender Ext: no edema CBC, BMP 01/05/18 05:30 01/05/18 05:30 Active Medications Acetaminophen (Tylenol -) 650 mg PO Q4H PRN PRN Reason: Pain-PACU ORDER X 2 DOSES ONLY Acetaminophen (Ofirmev Injection -) 1,000 mg IVPB Q6H PRN PRN Reason: PAIN Last Admin: 01/05/18 11:30 Dose: 1,000 mg Albuterol/Ipratropium (Duoneb -) 1 amp NEB RTID [facility] Last Admin: 01/05/18 08:13 Dose: 1 amp Budesonide/Formoterol Fumarate (Symbicort 160/4.5mcg -) 2 puff IH BID [facility] Last Admin: 01/05/18 09:22 Dose: 2 puff Celecoxib (Celebrex -) 200 mg PO BID [facility] Last Admin: 01/05/18 09:23 Dose: 200 mg Gabapentin (Neurontin -) 300 mg PO HS [facility] Last Admin: 01/04/18 21:14 Dose: 300 mg Methylnaltrexone [place] (Relistor -) 12 mg SQ DAILY [facility] Stop: 01/06/18 10:01 Non-Formulary Medication (Cefpodoxime Proxetil) 200 mg PO BID [facility] Ondansetron HCl (Zofran Injection) 4 mg IVPUSH Q6H PRN PRN Reason: NAUSEA AND/OR VOMITING Oxycodone HCl (Roxicodone -) 5 mg PO Q4H PRN PRN Reason: PAIN LEVEL 1 - 3 Oxycodone HCl (Roxicodone -) 10 mg PO Q4H PRN PRN Reason: PAIN LEVEL 4 - 6 Oxycodone HCl (Roxicodone -) 15 mg PO Q4H PRN PRN Reason: PAIN LEVEL 7 - 10 Oxycodone HCl (Oxycontin -) 10 mg PO BID [facility] Stop: 01/11/18 12:00 Last Admin: 01/05/18 09:09 Dose: Not Given Pantoprazole Sodium (Protonix -) 40 mg PO DAILY [facility] Last Admin: 01/05/18 09:23 Dose: 40 mg Polyethylene Glycol (Miralax (For Daily Use) -) 17 gm PO DAILY [facility] Last Admin: 01/05/18 09:33 Dose: 17 gm Prednisone (Deltasone -) 5 mg PO DAILY [facility] ASSESSMENT AND PLAN: Lumbar Compression Fractures s/p T12-L4 Laminectomies/T9-pelvis instrumentation/T9-S1 posterior lateral arthrodesis Acute COPD Exacerbation Chronic Hypoxic Respiratory Failure - can d/c medrol - inhaled bronchodilators standing and PRN - pain control - incentive spirometry - on empiric antibiotics - monitor drain output - O2 to keep SpO2 >90% - PO as tolerated - d/c holder - DVT prophylaxis
[2018-01-05] MEDS ORDERED: DOCUSATE SODIUM 100 MG CAPSULE (FP) PO PRN (12:22)
--- NOTE | 2018-01-05 12:25 | PN ---
Physical Exam: SUBJECTIVE: Patient seen and examined. No acute events overnight. Pt. refused oxycodone. Pt. amenable to IV Tylenol to good effect for pain control. Pt. says he is hungry. OBJECTIVE: Vital Signs Period Temp Pulse Resp BP Sys/Hyman Pulse Ox Last 24 Hr 98.0 F-98.8 F 75-83 15-20 125-156/56-85 93-96 GENERAL: The patient is awake, alert, and fully oriented, lying in bed in no acute distress. LUNGS: Decreased breath sounds b/l, no wheezing, mild diffuse crackles, wet sounding cough, no accessory muscle use. HEART: Regular rate and rhythm, S1, S2 without murmur, rub or gallop. ABDOMEN: Soft, nontender, nondistended, normoactive bowel sounds, no guarding, no rebound,Reyes draining clear yellow urine BACK: Dressing c/d/i, Davol drain removed EXTREMITIES: 2+ dorsal pedal pulses, 5/5 muscle strength, warm, well-perfused, no edema, no calf tenderness,. NEUROLOGICAL: Normal speech, motor and sensation grossly intact in all extremities. PSYCH: Normal mood, normal affect. SKIN: Warm, dry, normal turgor, no rashes or lesions noted Laboratory Results - last 24 hr 01/05/18 01/05/18 05:30 05:30 WBC 5.3 RBC 3.21 L Hgb 9.2 L Hct 27.9 L MCV 87.0 MCH 28.7 MCHC 32.9 RDW 13.7 Plt Count 182 MPV 7.6 Sodium 139 Potassium 4.5 Chloride 103 Carbon Dioxide 27 Anion Gap 9 BUN 20 H Creatinine 0.9 Creat Clearance w eGFR > 60 Random Glucose 131 H Calcium 8.3 L Phosphorus 2.7 Magnesium 2.1 Active Medications Current Medications Acetaminophen (Tylenol -) 650 mg PO Q4H PRN PRN Reason: Pain-PACU ORDER X 2 DOSES ONLY Acetaminophen (Ofirmev Injection -) 1,000 mg IVPB Q6H PRN PRN Reason: PAIN Last Admin: 01/05/18 11:30 Dose: 1,000 mg Albuterol/Ipratropium (Duoneb -) 1 amp NEB RTID [facility] Last Admin: 01/05/18 08:13 Dose: 1 amp Budesonide/Formoterol Fumarate (Symbicort 160/4.5mcg -) 2 puff IH BID [facility] Last Admin: 01/05/18 09:22 Dose: 2 puff Celecoxib (Celebrex -) 200 mg PO BID [facility] Last Admin: 01/05/18 09:23 Dose: 200 mg Docusate Sodium (Colace -) 100 mg PO BID PRN PRN Reason: CONSTIPATION Gabapentin (Neurontin -) 300 mg PO [facility] Last Admin: 01/04/18 21:14 Dose: 300 mg Methylnaltrexone [place] (Relistor -) 12 mg SQ DAILY [facility] Stop: 01/06/18 10:01 Non-Formulary Medication (Cefpodoxime Proxetil) 200 mg PO BID [facility] Ondansetron HCl (Zofran Injection) 4 mg IVPUSH Q6H PRN PRN Reason: NAUSEA AND/OR VOMITING Oxycodone HCl (Roxicodone -) 5 mg PO Q4H PRN PRN Reason: PAIN LEVEL 1 - 3 Oxycodone HCl (Roxicodone -) 10 mg PO Q4H PRN PRN Reason: PAIN LEVEL 4 - 6 Oxycodone HCl (Roxicodone -) 15 mg PO Q4H PRN PRN Reason: PAIN LEVEL 7 - 10 Oxycodone HCl (Oxycontin -) 10 mg PO BID [facility] Stop: 01/11/18 12:00 Last Admin: 01/05/18 09:09 Dose: Not Given Pantoprazole Sodium (Protonix -) 40 mg PO DAILY [facility] Last Admin: 01/05/18 09:23 Dose: 40 mg Polyethylene Glycol (Miralax (For Daily Use) -) 17 gm PO DAILY [facility] Last Admin: 01/05/18 09:33 Dose: 17 gm Prednisone (Deltasone -) 5 mg PO DAILY [facility] Senna (Senna -) 1 tab PO [facility] ASSESSMENT/PLAN: 82 y/o M w/PMH of COPD, chronic urinary retention, aortic aneurysm admitted to the ICU post-op s/p T12-L4 laminectomies, T9-pelvis PISF. 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 is restarted on Trazodone as Pt. becomes confused and "loopy." Post-op drain was removed by surgery. PT consult appreciated; WBAT OOB w/ assistance q4h B/L LE neurovascular checks Received 2/2 post-op doses of Abx. (Ancef 2 gm) -Pruritis resolving- Pt. states that it is intermittent, unable to correlate w/ specific provoking factor c/w Benadryl 25mg PRN of pruritis (may be 2/2 Bupivacaine) can go up to 50mg if needed monitor for worsening symptoms #Pulmonary -COPD Duo Nebs qhH PRN D/C Solumedrol Hold home Prednisone 5mg for today, can restart tomorrow(01/06/18) c/w Incentive Spirometry q15 min CXR does not show any significant changes #Nephrology -Chronic urinary retention Reyes in place draining clear nacho colored urine with good urine output #Neurology -Hx. of Shingles c/w Gabapentin 300mg PO HS #Gastroenterology -Nausea and Vomiting Ondansetron 4mg q6H PRN -Constipation Pt. able to pass gas Miralax PO, if Pt. does not have bowel movement can increase to BID Relistor, Docusate and Senna ordered PRN #Cardiovascular -Anemia Pt. is currently at baseline Will monitor H/H #F/E/N -Regular diet -Pt. able to pass gas -monitor electrolytes and replete as needed -D/c IVf, encourage PO intake -hold PRN Lasix #DVT PPx. SCDs ONLY No NSAIDs -per Dr. Roberts Celecoxib ordered per aneasthesia #Dispo: Med/Surg Visit type - Emergency Visit Emergency Visit: No - New Patient This patient is new to me today: No - Critical Care Critical Care patient: No - Discharge Referral Referred to [facility] Med P.C.: No
--- NOTE | 2018-01-05 13:02 | PN ---
Teaching Attending Note Name of Resident: Nahid Mata ATTENDING PHYSICIAN STATEMENT I saw and evaluated the patient. I reviewed the resident's note and discussed the case with the resident. I agree with the resident's findings and plan as documented. SUBJECTIVE: Patient says his back hurts when he moves. OBJECTIVE: Vital Signs Period Temp Pulse Resp BP Sys/Hyman Pulse Ox Last 24 Hr 98.0 F-98.8 F 75-83 15-20 125-156/56-85 93-96 HEART: S1S2, RRR LUNGS: Bilateral rhonchi ABDOMEN: Soft, non-tender, non-distended, normal BS EXTREMITIES: No edema Laboratory Results - last 24 hr 01/05/18 01/05/18 05:30 05:30 WBC 5.3 RBC 3.21 L Hgb 9.2 L Hct 27.9 L MCV 87.0 MCH 28.7 MCHC 32.9 RDW 13.7 Plt Count 182 MPV 7.6 Sodium 139 Potassium 4.5 Chloride 103 Carbon Dioxide 27 Anion Gap 9 BUN 20 H Creatinine 0.9 Creat Clearance w eGFR > 60 Random Glucose 131 H Calcium 8.3 L Phosphorus 2.7 Magnesium 2.1 Current Medications Generic Name Dose Route Start Last Admin Trade Name Freq PRN Reason Stop Dose Admin Acetaminophen 650 mg 01/03/18 17:39 Tylenol - PO Q4H PRN Pain-PACU ORDER X 2 DOSES ONLY Acetaminophen 1,000 mg 01/05/18 11:14 01/05/18 11:30 Ofirmev Injection - IVPB 1,000 mg Q6H PRN Administration PAIN Albuterol/Ipratropium 1 amp 01/03/18 22:15 01/05/18 08:13 Duoneb - NEB 1 amp RTID [facility] Administration Budesonide/Formoterol Fumarate 2 puff 01/04/18 10:00 01/05/18 09:22 Symbicort 160/4.5mcg - IH 2 puff BID [facility] Administration Celecoxib 200 mg 01/03/18 22:00 01/05/18 09:23 Celebrex - PO 200 mg BID [facility] Administration Docusate Sodium 100 mg 01/05/18 12:22 Colace - PO BID PRN CONSTIPATION Gabapentin 300 mg 01/03/18 22:00 01/04/18 21:14 Neurontin - PO 300 mg HS [facility] Administration Methylnaltrexone [place] 12 mg 01/05/18 12:00 Relistor - SQ 01/06/18 10:01 DAILY [facility] Non-Formulary Medication 200 mg 01/03/18 22:00 Cefpodoxime Proxetil PO BID [facility] Ondansetron HCl 4 mg 01/03/18 21:57 Zofran Injection IVPUSH Q6H PRN NAUSEA AND/OR VOMITING Oxycodone HCl 5 mg 01/03/18 17:39 Roxicodone - PO Q4H PRN PAIN LEVEL 1 - 3 Oxycodone HCl 10 mg 01/03/18 17:39 Roxicodone - PO Q4H PRN PAIN LEVEL 4 - 6 Oxycodone HCl 15 mg 01/03/18 17:45 Roxicodone - PO Q4H PRN PAIN LEVEL 7 - 10 Oxycodone HCl 10 mg 01/04/18 12:01 01/05/18 09:09 Oxycontin - PO 01/11/18 12:00 Not Given BID [facility] Pantoprazole Sodium 40 mg 01/04/18 11:00 01/05/18 09:23 Protonix - PO 40 mg DAILY [facility] Administration Polyethylene Glycol 17 gm 01/04/18 13:45 01/05/18 09:33 Miralax (For Daily Use) - PO 17 gm DAILY [facility] Administration Prednisone 5 mg 01/05/18 12:00 Deltasone - PO DAILY [facility] Senna 1 tab 01/05/18 22:00 Senna - PO [facility] ASSESSMENT AND PLAN: This is an 82 year old man a history of COPD, chronic urinary retention 1. Lumbar spinal stenosis, lumbar compression fractures, lumbar kyphosis - s/p T12-L4 laminectomies, T9-pelvis posterior instrumentation, T9-S1 posterolateral arthrodesis 01/03 - Pain control - Incentive spirometer - Ambulation - Physical therapy 2. Acute exacerbation of COPD - SoluMedrol changed to Prednisone - Continue Symbicort, DuoNeb, oxygen - Patient is steroid-dependent at home 3. Chronic hypoxic respiratory failure - Oxygen to maintain saturation >90% 4. Anemia - Likely acute blood loss on chronic anemia - Hemoglobin is stable 5. Chronic urinary retention - Has Reyes catheter - At home, he does self-catheterization 6. Constipation - Continue Senna, Miralax - Relistor ordered
[2018-01-05] MEDS ORDERED: ALBUTEROL SO4 0.083% IH SOL 2.5 MG/3 ML VIAL.NEB. NEB PRN (13:33)
[2018-01-05] MEDS: predniSONE 5 MG TABLET (UD) PO SCH (14:31)
[2018-01-05] MEDS: Methylnaltrexone Bromide 12 MG/0.6 ML KIT SQ SCH (14:32)
[2018-01-05] MEDS ORDERED: ONDANSETRON 4 MG/2 ML VIAL IVPUSH PRN (17:20)
[2018-01-05] MEDS ORDERED: oxyCODONE HCL 5 MG TABLET PO PRN ×3 (17:20)
[2018-01-05] MEDS: GABAPENTIN 300 MG CAPSULE (FP) PO SCH (21:24)
[2018-01-05] MEDS: SENNOSIDES 8.6MG TABLET (FP) PO SCH (21:24)
[2018-01-05] MEDS: ACETAMINOPHEN 500 MG TABLET (FP) PO PRN (21:24)
[2018-01-05] MEDS ORDERED: diphenhydrAMINE HCL 25 MG CAPSULE (FP) PO ONE (21:39)
[2018-01-06] MEDS: ALBUTEROL SO4 2.5/IPRATROPIUM 0.5 INH SOL 3 ML VIAL.NEB. NEB SCH ×3 (07:30→21:13)
[2018-01-06] MEDS ORDERED: PT OWN MED DRAWER 7, Y5N ONE (09:10)
[2018-01-06] MEDS: CELECOXIB 200 MG CAPSULE PO SCH ×2 (09:34→21:54)
[2018-01-06] MEDS: oxyCODONE HCL 10 MG SUSTAINED ACTING TABLET PO SCH (09:35)
[2018-01-06] MEDS: Methylnaltrexone Bromide 12 MG/0.6 ML KIT SQ SCH (09:35)
[2018-01-06] MEDS: predniSONE 5 MG TABLET (UD) PO SCH (09:35)
[2018-01-06] MEDS: BUDESONIDE/FORMETEROL FUMARATE 160/4.5 mcg INHALER IH SCH ×2 (09:36→23:25)
[2018-01-06] MEDS: ACETAMINOPHEN 500 MG TABLET (FP) PO PRN ×3 (09:36→23:26)
--- NOTE | 2018-01-06 09:46 | PN ---
Teaching Attending Note Name of Resident: Mihir James ATTENDING PHYSICIAN STATEMENT I saw and evaluated the patient. I reviewed the resident's note and discussed the case with the resident. I agree with the resident's findings and plan as documented. SUBJECTIVE: Pt seen and examined in the ICU. c/o some back pain. Denies shortness of breath. OBJECTIVE: Vital Signs Period Temp Pulse Resp BP Sys/Hyman Pulse Ox Last 24 Hr 97.2 F-98.1 F 73-88 15-20 114-152/52-71 96-98 Intake & Output 01/03/18 01/04/18 01/05/18 01/06/18 23:59 23:59 23:59 23:59 Intake Total 4400 2600 1450 250 Output Total 3800 3665 2120 1000 Balance 600 -2888 -670 -750 Weight 93.44 kg 94.461 kg 94.886 kg Gen: NAD at rest Heart: RRR Lung: scattered rhonchi Abd: soft, nontender Ext: no edema CBC, BMP 01/05/18 05:30 01/05/18 05:30 Active Medications Acetaminophen (Tylenol -) 1,000 mg PO Q6H PRN PRN Reason: PAIN Last Admin: 01/06/18 09:36 Dose: 1,000 mg Albuterol Sulfate (Ventolin 0.083% Nebulizer Soln -) 1 amp NEB Q6H PRN PRN Reason: SHORT OF BREATH/WHEEZING Albuterol/Ipratropium (Duoneb -) 1 amp NEB RTID [facility] Last Admin: 01/06/18 07:30 Dose: 1 amp Budesonide/Formoterol Fumarate (Symbicort 160/4.5mcg -) 2 puff IH BID [facility] Last Admin: 01/06/18 09:36 Dose: 2 puff Celecoxib (Celebrex -) 200 mg PO BID [facility] Last Admin: 01/06/18 09:34 Dose: 200 mg Docusate Sodium (Colace -) 100 mg PO BID PRN PRN Reason: CONSTIPATION Gabapentin (Neurontin -) 300 mg PO HS [facility] Last Admin: 01/05/18 21:24 Dose: 300 mg Methylnaltrexone [place] (Relistor -) 12 mg SQ DAILY [facility] Stop: 01/06/18 10:01 Last Admin: 01/06/18 09:35 Dose: 12 mg Ondansetron HCl (Zofran Injection) 4 mg IVPUSH Q6H PRN PRN Reason: NAUSEA AND/OR VOMITING Oxycodone HCl (Roxicodone -) 5 mg PO Q4H PRN PRN Reason: PAIN LEVEL 1 - 3 Oxycodone HCl (Roxicodone -) 10 mg PO Q4H PRN PRN Reason: PAIN LEVEL 4 - 6 Oxycodone HCl (Roxicodone -) 15 mg PO Q4H PRN PRN Reason: PAIN LEVEL 7 - 10 Oxycodone HCl (Oxycontin -) 10 mg PO BID [facility] Stop: 01/11/18 12:00 Last Admin: 01/06/18 09:35 Dose: Not Given Pantoprazole Sodium (Protonix -) 40 mg PO DAILY [facility] Polyethylene Glycol (Miralax (For Daily Use) -) 17 gm PO DAILY [facility] Prednisone (Deltasone -) 5 mg PO DAILY [facility] Last Admin: 01/06/18 09:35 Dose: 5 mg Senna (Senna -) 1 tab PO [facility] Last Admin: 01/05/18 21:24 Dose: 1 tab ASSESSMENT AND PLAN: Lumbar Compression Fractures s/p T12-L4 Laminectomies/T9-pelvis instrumentation/T9-S1 posterior lateral arthrodesis Acute COPD Exacerbation Chronic Hypoxic Respiratory Failure - inhaled bronchodilators standing and PRN - pain control - incentive spirometry - on empiric antibiotics - monitor drain output - O2 to keep SpO2 >90% - PO as tolerated - d/c holder - DVT prophylaxis
[2018-01-06] MEDS ORDERED: POLYETHYLENE GLYCOL 3350 119 GM BTL PO SCH (10:00)
[2018-01-06] MEDS ORDERED: PANTOPRAZOLE 40 MG TABLET (FP) PO SCH (10:00)
--- NOTE | 2018-01-06 10:18 | PN ---
Physical Exam: SUBJECTIVE: Patient seen and examined. No acute events overnight. Pt. states that his pain is the same amount. Pt. also wants to have Reyes removed because he is worried about an infection. Reyes was removed. No bowel movements, but Pt. endorses passing gas. OBJECTIVE: Vital Signs Period Temp Pulse Resp BP Sys/Hyman Pulse Ox Last 24 Hr 97.2 F-98.1 F 73-94 15-20 95-152/43-71 96-98 GENERAL: The patient is awake, alert, and fully oriented, in no acute distress. LUNGS: Decreased breath sounds, clear to auscultation bilaterally, no wheezes, wet sounding cough, no accessory muscle use. HEART: Regular rate and rhythm, S1, S2 without murmur, rub or gallop. ABDOMEN: Soft, nontender, nondistended, normoactive bowel sounds, no guarding, no rebound, Reyes in place draining clear yellow urine EXTREMITIES: 2+ pulses, warm, well-perfused, no edema. NEUROLOGICAL: Cranial nerves II through XII grossly intact. Normal speech, gait not observed. PSYCH: Normal mood, normal affect. SKIN: Warm, dry, normal turgor, no rashes or lesions noted Active Medications Current Medications Acetaminophen (Tylenol -) 1,000 mg PO Q6H PRN PRN Reason: PAIN Last Admin: 01/06/18 09:36 Dose: 1,000 mg Albuterol Sulfate (Ventolin 0.083% Nebulizer Soln -) 1 amp NEB Q6H PRN PRN Reason: SHORT OF BREATH/WHEEZING Albuterol/Ipratropium (Duoneb -) 1 amp NEB RTID [facility] Last Admin: 01/06/18 07:30 Dose: 1 amp Budesonide/Formoterol Fumarate (Symbicort 160/4.5mcg -) 2 puff IH BID [facility] Last Admin: 01/06/18 09:36 Dose: 2 puff Celecoxib (Celebrex -) 200 mg PO BID [facility] Last Admin: 01/06/18 09:34 Dose: 200 mg Docusate Sodium (Colace -) 100 mg PO BID PRN PRN Reason: CONSTIPATION Gabapentin (Neurontin -) 300 mg PO [facility] Last Admin: 01/05/18 21:24 Dose: 300 mg Ondansetron HCl (Zofran Injection) 4 mg IVPUSH Q6H PRN PRN Reason: NAUSEA AND/OR VOMITING Oxycodone HCl (Roxicodone -) 5 mg PO Q4H PRN PRN Reason: PAIN LEVEL 1 - 3 Oxycodone HCl (Roxicodone -) 10 mg PO Q4H PRN PRN Reason: PAIN LEVEL 4 - 6 Oxycodone HCl (Roxicodone -) 15 mg PO Q4H PRN PRN Reason: PAIN LEVEL 7 - 10 Pantoprazole Sodium (Protonix -) 40 mg PO DAILY [facility] Last Admin: 01/06/18 09:49 Dose: 40 mg Polyethylene Glycol (Miralax (For Daily Use) -) 17 gm PO DAILY [facility] Last Admin: 01/06/18 09:49 Dose: 17 grams Prednisone (Deltasone -) 5 mg PO DAILY [facility] Last Admin: 01/06/18 09:35 Dose: 5 mg Senna (Senna -) 1 tab PO [facility] Last Admin: 01/05/18 21:24 Dose: 1 tab ASSESSMENT/PLAN: 82 y/o M w/PMH of COPD, chronic urinary retention, aortic aneurysm admitted to the ICU post-op s/p T12-L4 laminectomies, T9-pelvis PISF. 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 is restarted on Trazodone as Pt. becomes confused and "loopy." Post-op drain was removed by surgery. PT consult appreciated; WBAT OOB w/ assistance q4h B/L LE neurovascular checks Received 2/2 post-op doses of Abx. (Ancef 2 gm) -Pruritis resolved- Pt. states that it is intermittent, unable to correlate w/ specific provoking factor c/w Benadryl 25mg PRN of pruritis (may be 2/2 Bupivacaine) can go up to 50mg if needed monitor for worsening symptoms #Pulmonary -COPD Duo Nebs qhH PRN D/C Solumedrol Hold home Prednisone 5mg for today, can restart tomorrow(01/06/18) c/w Incentive Spirometry q15 min CXR does not show any significant changes #Nephrology -Chronic urinary retention D/C-ed Reyes Straight-cath 2x/ day as per home regimen #Neurology -Hx. of Shingles c/w Gabapentin 300mg PO HS #Gastroenterology -Nausea and Vomiting Ondansetron 4mg q6H PRN -Constipation Pt. able to pass gas, No Bowel movement. Miralax PO, if Pt. does not have bowel movement can increase to BID Relistor, Docusate and Senna ordered PRN #Cardiovascular -Anemia Pt. is currently stable Will monitor H/H #F/E/N -Regular diet -Pt. able to pass gas -monitor electrolytes and replete as needed -D/c IVf, encourage PO intake -hold PRN Lasix #DVT PPx. SCDs ONLY No NSAIDs -per Dr. Roberts Celecoxib ordered per aneasthesia Visit type - Emergency Visit Emergency Visit: No - New Patient This patient is new to me today: No - Critical Care Critical Care patient: No - Discharge Referral Referred to [facility] Med P.C.: No
--- NOTE | 2018-01-06 11:01 | PN ---
Progress Note, Physician Chief Complaint: No c/o Pain or fever some blood mixed exudate seen on lower part of dressing History of Present Illness: 82 yrs old male PMH of COPD, chronic urinary retention, aortic aneurysm admitted to the ICU post-op s/p T12-L4 laminectomies, T9-pelvis PISF. POD 3, no fever denies any worsening back pain. - Current Medication List Current Medications: Active Medications Acetaminophen (Tylenol -) 1,000 mg PO Q6H PRN PRN Reason: PAIN Last Admin: 01/06/18 09:36 Dose: 1,000 mg Albuterol Sulfate (Ventolin 0.083% Nebulizer Soln -) 1 amp NEB Q6H PRN PRN Reason: SHORT OF BREATH/WHEEZING Albuterol/Ipratropium (Duoneb -) 1 amp NEB RTID [facility] Last Admin: 01/06/18 07:30 Dose: 1 amp Budesonide/Formoterol Fumarate (Symbicort 160/4.5mcg -) 2 puff IH BID [facility] Last Admin: 01/06/18 09:36 Dose: 2 puff Celecoxib (Celebrex -) 200 mg PO BID [facility] Last Admin: 01/06/18 09:34 Dose: 200 mg Docusate Sodium (Colace -) 100 mg PO BID PRN PRN Reason: CONSTIPATION Gabapentin (Neurontin -) 300 mg PO HS [facility] Last Admin: 01/05/18 21:24 Dose: 300 mg Ondansetron HCl (Zofran Injection) 4 mg IVPUSH Q6H PRN PRN Reason: NAUSEA AND/OR VOMITING Oxycodone HCl (Roxicodone -) 5 mg PO Q4H PRN PRN Reason: PAIN LEVEL 1 - 3 Oxycodone HCl (Roxicodone -) 10 mg PO Q4H PRN PRN Reason: PAIN LEVEL 4 - 6 Oxycodone HCl (Roxicodone -) 15 mg PO Q4H PRN PRN Reason: PAIN LEVEL 7 - 10 Pantoprazole Sodium (Protonix -) 40 mg PO DAILY [facility] Last Admin: 01/06/18 09:49 Dose: 40 mg Polyethylene Glycol (Miralax (For Daily Use) -) 17 gm PO DAILY [facility] Last Admin: 01/06/18 09:49 Dose: 17 grams Prednisone (Deltasone -) 5 mg PO DAILY [facility] Last Admin: 01/06/18 09:35 Dose: 5 mg Senna (Senna -) 1 tab PO HS [facility] Last Admin: 01/05/18 21:24 Dose: 1 tab - Objective Vital Signs: Vital Signs Temperature 98.7 F 01/06/18 10:22 Pulse Rate 88 01/06/18 10:30 Respiratory Rate 18 01/06/18 10:30 Blood Pressure 95/64 01/06/18 10:30 O2 Sat by Pulse Oximetry (%) 98 01/06/18 08:06 Elderly man comfortable not in distress HEENT: MM moist, anemia, PERRLA, EOMI NECK: Supple No JVd No Bruit CHEST: Non tender Left LL crepts + CVS: S1S2 R SM in AA no /g/r ABD: No distention non tender Bs + EXT: S/P T12 to L4 Lamenctomies wound in dressing some exudate at rdressing, No Edema feet no calf tenderness, pulses + TRANSPORT AIDE: AOx3 non focal, Labs: CBC, BMP 01/05/18 05:30 01/05/18 05:30 Problem List - Problems (1) S/P spinal fusion Assessment/Plan: s/p T12-L4 laminectomies, T9-pelvis PISF remained pain free afebrile some bloody discharge from the wound, will F/U surgery recommendations, today out of the bed participating in PT Code(s): Z98.1 - ARTHRODESIS STATUS (2) COPD (chronic obstructive pulmonary disease) Assessment/Plan: Well controlled cont current nebs and MDI with Prednisone 5 mg PO, incentive spirometry Code(s): J44.9 - CHRONIC OBSTRUCTIVE PULMONARY DISEASE, UNSPECIFIED Qualifiers: COPD type: unspecified COPD Qualified Code(s): J44.9 - Chronic obstructive pulmonary disease, unspecified (3) Spinal stenosis Assessment/Plan: Cont Pain medications Code(s): M48.00 - SPINAL STENOSIS, SITE UNSPECIFIED Qualifiers: Spinal region: thoracolumbar Qualified Code(s): M48.05 - Spinal stenosis, thoracolumbar region (4) Anemia Assessment/Plan: Chronic H/H are stable Code(s): D64.9 - ANEMIA, UNSPECIFIED Assessment/Plan Disposition as per PT and Surgery clearance
[2018-01-06 16:30] LABS: HEMATOCRIT 26.2 % (35.4-49); HEMOGLOBIN 8.7 GM/dL (11.7-16.9); MCH 29.1 pg (25.7-33.7); MCHC 33.4 g/dl (32.0-35.9); MEAN PLT VOLUME 7.6 fl (7.5-11.1); PLATELET COUNT 194 K/MM3 (134-434); RBC 3.01 M/mm3 (4.00-5.60); RDW 13.6 % (11.9-15.9); WHITE BLOOD COUNT 2.8 K/mm3 (4.0-10.0)
[2018-01-06] MEDS: SENNOSIDES 8.6MG TABLET (FP) PO SCH (21:54)
[2018-01-06] MEDS: GABAPENTIN 300 MG CAPSULE (FP) PO SCH (21:54)
[2018-01-07] MEDS: ALBUTEROL SO4 2.5/IPRATROPIUM 0.5 INH SOL 3 ML VIAL.NEB. NEB SCH ×3 (07:38→21:05)
[2018-01-07 07:55] LABS: BASO % 0.3 % (0-2.0); HEMATOCRIT 25.3 % (35.4-49); HEMOGLOBIN 8.4 GM/dL (11.7-16.9); LYMPH % 30.5 % (8-40); MCH 28.6 pg (25.7-33.7); MEAN CELL VOLUME 86.9 fl (80-96); MEAN PLT VOLUME 7.6 fl (7.5-11.1); NEUT % 42.2 % (42.8-82.8); PLATELET COUNT 175 K/MM3 (134-434); RBC 2.92 M/mm3 (4.00-5.60); RDW 13.3 % (11.9-15.9); WHITE BLOOD COUNT 2.7 K/mm3 (4.0-10.0)
[2018-01-07] MEDS ORDERED: DOCUSATE SODIUM 100 MG CAPSULE (FP) PO PRN (08:18)
[2018-01-07] MEDS ORDERED: oxyCODONE HCL 5 MG TABLET PO PRN ×3 (08:18)
[2018-01-07] MEDS ORDERED: ONDANSETRON 4 MG/2 ML VIAL IVPUSH PRN (08:18)
[2018-01-07] MEDS ORDERED: ALBUTEROL SO4 0.083% IH SOL 2.5 MG/3 ML VIAL.NEB. NEB PRN (08:18)
[2018-01-07] MEDS: CEFPODOXIME PROXETIL 200 MG PO SCH ×2 (08:23→08:38)
[2018-01-07 08:27] LABS: ALBUMIN 2.2 g/dl (3.4-5.0); ALK PHOS 56 U/L (45-117); ANION GAP 6 MMOL/L (8-16); BILIRUBIN,TOTAL 0.3 mg/dL (0.2-1.0); BLOOD UREA NITROGEN 26 mg/dL (7-18); CALCIUM 8.4 mg/dL (8.5-10.1); CHLORIDE 101 mmol/L (98-107); CO2 30 mmol/L (21-32); CREATININE 0.9 mg/dL (0.7-1.3); GLUCOSE,RANDOM 88 mg/dL (74-106); POTASSIUM 4.5 mmol/L (3.5-5.1); SGOT/AST 30 U/L (15-37); SGPT/ALT 22 U/L (12-78); SODIUM 137 mmol/L (136-145); TOT PROT 5.2 g/dl (6.4-8.2)
--- NOTE | 2018-01-07 11:01 | PN ---
Progress Note (short form) - Note Progress Note: PULMONARY Resting comfortably Cough mainly nonproductive Gen: NAD at rest Heart: RRR Lung: scattered rhonchi Abd: soft, nontender Ext: no edema labs/meds/notes/images reviewed ASSESSMENT AND PLAN: Lumbar Compression Fractures s/p T12-L4 Laminectomies/T9-pelvis instrumentation/T9-S1 posterior lateral arthrodesis Acute COPD Exacerbation Chronic Hypoxic Respiratory Failure - inhaled bronchodilators standing and PRN - pain control - incentive spirometry - on empiric antibiotics - monitor drain output - O2 to keep SpO2 >90% - PO as tolerated - DVT prophylaxis Stevenson FERRER MD
[2018-01-07] MEDS ORDERED: PT OWN MED DRAWER 7, Y5N ONE ×3 (11:12→22:05)
[2018-01-07] MEDS: POLYETHYLENE GLYCOL 3350 119 GM BTL PO SCH (11:19)
[2018-01-07] MEDS: predniSONE 5 MG TABLET (UD) PO SCH (11:20)
[2018-01-07] MEDS: CELECOXIB 200 MG CAPSULE PO SCH ×2 (11:20→22:33)
[2018-01-07] MEDS: BUDESONIDE/FORMETEROL FUMARATE 160/4.5 mcg INHALER IH SCH ×3 (11:20→22:14)
[2018-01-07] MEDS: PANTOPRAZOLE 40 MG TABLET (FP) PO SCH (11:20)
[2018-01-07 11:41] LABS: ANISOCYTOSIS 0; MACROCYTOSIS 0; PLATELET ESTIMATE NORMAL
--- NOTE | 2018-01-07 13:37 | PN ---
Physical Exam: SUBJECTIVE: Patient seen and examined at bed side this morning. Complaining of back pain at the surgical site but says it has been improving and controlled with pain medication. Had a bowel movement today after 5 days. Denies chest pain , sob, cough, palpitation, abdominal pain, nausea or vomiting. Bladder habit normal. Sleep/Appetite normal. Has been using incentive spirometer. No acute overnight events. OBJECTIVE: Vital Signs Period Temp Pulse Resp BP Sys/Hyman Pulse Ox Last 24 Hr 98.1 F-98.9 F 77-88 18-20 133-148/50-77 100 GENERAL: Elderly male, lying comfortably in bed, is awake, alert, and fully oriented, in no acute distress. HEAD: Normal with no signs of trauma. EYES: EOM intact, no pallor or icterus. ENT: Moist mucous membranes. NECK: Supple. LUNGS: Bilateral coarse breath sounds. No wheezing. Not using any accessory muscles. Incentive spirometer at bed side. . HEART: Regular rate and rhythm, S1, S2 ABDOMEN: Surgical isha +, Ventral hernia. Soft, nontender, nondistended, normoactive bowel sounds, no guarding. EXTREMITIES: well-perfused, no edema. NEUROLOGICAL: No facial droop. Normal speech, gait not observed.Strength 5/5 in upper extremities. Sensation intact. PSYCH: Normal mood, normal affect. SKIN: Warm, dry, normal turgor Laboratory Results - last 24 hr 01/03/18 01/06/18 01/06/18 08:19 15:50 15:50 WBC 2.8 L RBC 3.01 L Hgb 8.7 L Hct 26.2 L MCV 87.0 MCH 29.1 MCHC 33.4 RDW 13.6 Plt Count 194 MPV 7.6 Absolute Neuts (auto) Neutrophils % Neutrophils % (Manual) Band Neutrophils % Lymphocytes % Lymphocytes % (Manual) Monocytes % Monocytes % (Manual) Eosinophils % Eosinophils % (Manual) Basophils % Basophils % (Manual) Myelocytes % (Man) Promyelocytes % (Man) Blast Cells % (Manual) Nucleated RBC % Metamyelocytes Hypochromia Platelet Estimate Polychromasia Poikilocytosis Anisocytosis Microcytosis Macrocytosis Sodium Potassium Chloride Carbon Dioxide Anion Gap BUN Creatinine Creat Clearance w eGFR Random Glucose Calcium Total Bilirubin AST ALT Alkaline Phosphatase Total Protein Albumin Blood Type A POSITIVE A POSITIVE Antibody Screen Negative Negative Crossmatch IS Only See Detail 01/07/18 01/07/18 07:00 07:00 WBC 2.7 L RBC 2.92 L Hgb 8.4 L Hct 25.3 L MCV 86.9 MCH 28.6 MCHC 33.0 RDW 13.3 Plt Count 175 MPV 7.6 Absolute Neuts (auto) 1.1 L Neutrophils % 42.2 L D Neutrophils % (Manual) 45.5 Band Neutrophils % 0.0 Lymphocytes % 30.5 D Lymphocytes % (Manual) 28.3 Monocytes % 24.0 H D Monocytes % (Manual) 22 H Eosinophils % 3.0 Eosinophils % (Manual) 3.0 Basophils % 0.3 Basophils % (Manual) 0.0 Myelocytes % (Man) 0 Promyelocytes % (Man) 0 Blast Cells % (Manual) 0 Nucleated RBC % 0 Metamyelocytes 0 Hypochromia 1+ Platelet Estimate Normal Polychromasia 0 Poikilocytosis 1+ Anisocytosis 0 Microcytosis 0 Macrocytosis 0 Sodium 137 Potassium 4.5 Chloride 101 Carbon Dioxide 30 Anion Gap 6 L BUN 26 H Creatinine 0.9 Creat Clearance w eGFR > 60 Random Glucose 88 D Calcium 8.4 L Total Bilirubin 0.3 AST 30 D ALT 22 Alkaline Phosphatase 56 D Total Protein 5.2 L Albumin 2.2 L Blood Type Antibody Screen Crossmatch IS Only Active Medications Generic Name Dose Route Start Last Admin Trade Name Freq PRN Reason Stop Dose Admin Acetaminophen 1,000 mg 01/07/18 08:18 Tylenol - PO Q6H PRN PAIN Albuterol Sulfate 1 amp 01/07/18 08:18 Ventolin 0.083% Nebulizer Soln - NEB Q6H PRN SHORT OF BREATH/WHEEZING Albuterol/Ipratropium 1 amp 01/07/18 14:00 Duoneb - NEB RTID [facility] Budesonide/Formoterol Fumarate 2 puff 01/07/18 10:00 01/07/18 11:20 Symbicort 160/4.5mcg - IH 2 puff BID [facility] Administration Celecoxib 200 mg 01/07/18 10:00 01/07/18 11:20 Celebrex - PO 200 mg BID [facility] Administration Docusate Sodium 100 mg 01/07/18 08:18 Colace - PO BID PRN CONSTIPATION Gabapentin 300 mg 09/08/18 22:00 Neurontin - PO HS [facility] Ondansetron HCl 4 mg 01/07/18 08:18 Zofran Injection IVPUSH Q6H PRN NAUSEA AND/OR VOMITING Oxycodone HCl 5 mg 01/07/18 08:18 Roxicodone - PO Q4H PRN PAIN LEVEL 1 - 3 Oxycodone HCl 10 mg 01/07/18 08:18 Roxicodone - PO Q4H PRN PAIN LEVEL 4 - 6 Oxycodone HCl 15 mg 01/07/18 08:18 Roxicodone - PO Q4H PRN PAIN LEVEL 7 - 10 Pantoprazole Sodium 40 mg 01/07/18 10:00 01/07/18 11:20 Protonix - PO 40 mg DAILY [facility] Administration Polyethylene Glycol 17 gm 01/07/18 10:00 01/07/18 11:19 Miralax (For Daily Use) - PO Not Given DAILY [facility] Prednisone 5 mg 01/07/18 10:00 01/07/18 11:20 Deltasone - PO 5 mg DAILY [facility] Administration Senna 1 tab 01/07/18 22:00 Senna - PO HS [facility] ASSESSMENT/PLAN: Patient is an 82 year old male with a hx of COPD, chronic urinary retention, spinal stenosis, and multiple falls admitted for back surgery. # Back pain s/p T12-L4 laminectomies, T9-pelvis posterior instrumentation, T9- S1 caul fat puller-lateral arthrodesis, Autograft, Allograft, and Bone marrow POD 4. Tolerating well after surgery. Pain well controlled with oxycontin BID and oxycodone PRN Continue to use Incentive spirometer. Physical therapy request as per Ortho. # Constipation Had large bowel movements twice today after 5 days without relistor. Is getting Miralax and is on Colace. High fibre diet # COPD- not in exacerbation On home dose of Prednisone 5mg PO daily Continue Duonebs TID and Albuterol PRN # Chronic Urinary Retention Reyes catheter removed it, straight cath BID and PRN Drained 1200 ml this morning and 750ml last night # Normocytic Anemia H/H 8.4/25.3, on admission it was 11.2/31.6 Drop in Hb could be due to blood loss during surgery, ~700ml blood loss in OR # FEN Not on IV fluids Electrolyes WNL Regular diet # Prophylaxis For DVT: SCDs, not on Heparin sq, as per Ortho For GI: On IV protonix # Code Status: Full Code Plan of care explained to the patient. He verbalized understanding. Case discussed with Dr. Fried. Visit type - Emergency Visit Emergency Visit: Yes ED Registration Date: 01/03/18 Care time: The patient presented to the Emergency Department on the above date and was hospitalized for further evaluation of their emergent condition. - New Patient This patient is new to me today: Yes Date on this admission: 01/07/18 - Critical Care Critical Care patient: No
[2018-01-07] MEDS: ACETAMINOPHEN 500 MG TABLET (FP) PO PRN (14:50)
--- NOTE | 2018-01-07 15:59 | PN ---
Teaching Attending Note Name of Resident: Crisitna Hickey ATTENDING PHYSICIAN STATEMENT I saw and evaluated the patient. I reviewed the resident's note and discussed the case with the resident. I agree with the resident's findings and plan as documented. SUBJECTIVE:No new complaints OBJECTIVE: Vital Signs Period Temp Pulse Resp BP Sys/Hyman Pulse Ox Last 24 Hr 98.1 F-98.9 F 77-87 18-20 133-148/50-77 100 Elderly man comfortable not in distress HEENT: MM moist, anemia, PERRLA, EOMI NECK: Supple No JVd No Bruit CHEST: Non tender Left LL crepts + CVS: S1S2 R SM in AA no /g/r ABD: No distention non tender Bs + EXT: S/P T12 to L4 Lamenctomies wound in dressing clean,No Edema feet no calf tenderness, pulses + SUGAR CANE GROWER: AOx3 non focal, ASSESSMENT AND PLAN: 82 yrs old male PMH of COPD, chronic urinary retention, aortic aneurysm admitted to the ICU post-op s/p T12-L4 laminectomies, T9-pelvis PISF. POD 3, no fever denies any worsening back pain. Discussed and agrees with resident plan of care and evaluation. Problem List - Problems (1) S/P spinal fusion Code(s): Z98.1 - ARTHRODESIS STATUS (2) COPD (chronic obstructive pulmonary disease) Code(s): J44.9 - CHRONIC OBSTRUCTIVE PULMONARY DISEASE, UNSPECIFIED Qualifiers: COPD type: unspecified COPD Qualified Code(s): J44.9 - Chronic obstructive pulmonary disease, unspecified (3) Spinal stenosis Code(s): M48.00 - SPINAL STENOSIS, SITE UNSPECIFIED Qualifiers: Spinal region: thoracolumbar Qualified Code(s): M48.05 - Spinal stenosis, thoracolumbar region (4) Anemia Code(s): D64.9 - ANEMIA, UNSPECIFIED
[2018-01-07] MEDS: traZODone HCL 50 MG TABLET (FP) PO SCH (22:03)
[2018-01-07] MEDS: GABAPENTIN 300 MG CAPSULE (FP) PO SCH (22:03)
[2018-01-07] MEDS: SENNOSIDES 8.6MG TABLET (FP) PO SCH (22:03)
[2018-01-08] MEDS: ALBUTEROL SO4 2.5/IPRATROPIUM 0.5 INH SOL 3 ML VIAL.NEB. NEB SCH ×3 (07:34→20:25)
[2018-01-08] MEDS ORDERED: PT OWN MED DRAWER 7, Y5N ONE ×2 (11:06→21:39)
[2018-01-08] MEDS: PANTOPRAZOLE 40 MG TABLET (FP) PO SCH (11:14)
[2018-01-08] MEDS: CELECOXIB 200 MG CAPSULE PO SCH ×2 (11:14→21:48)
[2018-01-08] MEDS: ACETAMINOPHEN 500 MG TABLET (FP) PO PRN (11:14)
[2018-01-08] MEDS: BUDESONIDE/FORMETEROL FUMARATE 160/4.5 mcg INHALER IH SCH ×2 (11:14→21:48)
[2018-01-08] MEDS: predniSONE 5 MG TABLET (UD) PO SCH (11:14)
[2018-01-08] MEDS: POLYETHYLENE GLYCOL 3350 119 GM BTL PO SCH (11:15)
--- NOTE | 2018-01-08 11:33 | PN ---
Progress Note, Physician Chief Complaint: No c/o Pain or fever some blood mixed exudate seen on lower part of dressing History of Present Illness: 82 yrs old male PMH of COPD, chronic urinary retention, aortic aneurysm admitted to the ICU post-op s/p T12-L4 laminectomies, T9-pelvis PISF, no fever denies any worsening back pain. - Current Medication List Current Medications: Active Medications Acetaminophen (Tylenol -) 1,000 mg PO Q6H PRN PRN Reason: PAIN Last Admin: 01/08/18 11:14 Dose: 1,000 mg Albuterol Sulfate (Ventolin 0.083% Nebulizer Soln -) 1 amp NEB Q6H PRN PRN Reason: SHORT OF BREATH/WHEEZING Albuterol/Ipratropium (Duoneb -) 1 amp NEB RTID [facility] Last Admin: 01/08/18 07:34 Dose: 1 amp Budesonide/Formoterol Fumarate (Symbicort 160/4.5mcg -) 2 puff IH BID [facility] Last Admin: 01/08/18 11:14 Dose: 2 puff Celecoxib (Celebrex -) 200 mg PO BID [facility] Last Admin: 01/08/18 11:14 Dose: 200 mg Docusate Sodium (Colace -) 100 mg PO BID PRN PRN Reason: CONSTIPATION Gabapentin (Neurontin -) 300 mg PO HS [facility] Last Admin: 01/07/18 22:03 Dose: 300 mg Ondansetron HCl (Zofran Injection) 4 mg IVPUSH Q6H PRN PRN Reason: NAUSEA AND/OR VOMITING Oxycodone HCl (Roxicodone -) 5 mg PO Q4H PRN PRN Reason: PAIN LEVEL 1 - 3 Oxycodone HCl (Roxicodone -) 10 mg PO Q4H PRN PRN Reason: PAIN LEVEL 4 - 6 Last Admin: 01/07/18 16:11 Dose: 10 mg Oxycodone HCl (Roxicodone -) 15 mg PO Q4H PRN PRN Reason: PAIN LEVEL 7 - 10 Pantoprazole Sodium (Protonix -) 40 mg PO DAILY [facility] Last Admin: 01/08/18 11:14 Dose: 40 mg Polyethylene Glycol (Miralax (For Daily Use) -) 17 gm PO DAILY [facility] Last Admin: 01/08/18 11:15 Dose: Not Given Prednisone (Deltasone -) 5 mg PO DAILY [facility] Last Admin: 01/08/18 11:14 Dose: 5 mg Senna (Senna -) 1 tab PO [facility] Last Admin: 01/07/18 22:03 Dose: 1 tab Trazodone HCl (Desyrel -) 150 mg PO [facility] Last Admin: 01/07/18 22:03 Dose: 150 mg - Objective Vital Signs: Vital Signs Temperature 98 F 01/08/18 05:59 Pulse Rate 79 01/08/18 05:59 Respiratory Rate 20 01/08/18 05:59 Blood Pressure 138/69 01/08/18 05:59 O2 Sat by Pulse Oximetry (%) 100 01/07/18 21:00 Elderly man comfortable not in distress HEENT: MM moist, anemia, PERRLA, EOMI NECK: Supple No JVd No Bruit CHEST: Non tender CTA B/L CVS: S1S2 R SM no m/g/r ABD: No distention non tender Bs + EXT: S/P T12 to L4 Lamenctomies wound in dressing some exudate at dressing, No Edema feet no calf tenderness, pulses + SADDLE CUTTER: AOx3 non focal, Labs: CBC, BMP 01/07/18 07:00 01/07/18 07:00 Problem List - Problems (1) S/P spinal fusion Assessment/Plan: s/p T12-L4 laminectomies, T9-pelvis PISF remained pain free afebrile some bloody discharge from the wound, will F/U surgery recommendations, today out of the bed participating in PT Code(s): Z98.1 - ARTHRODESIS STATUS (2) COPD (chronic obstructive pulmonary disease) Assessment/Plan: Well controlled cont current nebs and MDI with Prednisone 5 mg PO, incentive spirometry Code(s): J44.9 - CHRONIC OBSTRUCTIVE PULMONARY DISEASE, UNSPECIFIED Qualifiers: COPD type: unspecified COPD Qualified Code(s): J44.9 - Chronic obstructive pulmonary disease, unspecified (3) Spinal stenosis Assessment/Plan: Cont Pain medications Code(s): M48.00 - SPINAL STENOSIS, SITE UNSPECIFIED Qualifiers: Spinal region: thoracolumbar Qualified Code(s): M48.05 - Spinal stenosis, thoracolumbar region (4) Anemia Assessment/Plan: Chronic H/H are stable Code(s): D64.9 - ANEMIA, UNSPECIFIED
[2018-01-08] MEDS: GABAPENTIN 300 MG CAPSULE (FP) PO SCH (21:47)
[2018-01-08] MEDS: traZODone HCL 50 MG TABLET (FP) PO SCH (21:47)
[2018-01-08] MEDS: SENNOSIDES 8.6MG TABLET (FP) PO SCH (21:47)
[2018-01-09] MEDS: ALBUTEROL SO4 2.5/IPRATROPIUM 0.5 INH SOL 3 ML VIAL.NEB. NEB SCH ×3 (07:35→20:00)
[2018-01-09] MEDS ORDERED: oxyCODONE HCL 5 MG TABLET PO PRN (08:16)
[2018-01-09] MEDS ORDERED: PT OWN MED DRAWER 7, Y5N ONE ×4 (09:27→21:41)
[2018-01-09] MEDS: predniSONE 5 MG TABLET (UD) PO SCH (09:34)
[2018-01-09] MEDS: POLYETHYLENE GLYCOL 3350 119 GM BTL PO SCH (09:34)
[2018-01-09] MEDS: CELECOXIB 200 MG CAPSULE PO SCH ×2 (09:34→21:22)
[2018-01-09] MEDS: oxyCODONE HCL 5 MG TABLET PO PRN (09:34)
[2018-01-09] MEDS: PANTOPRAZOLE 40 MG TABLET (FP) PO SCH (09:35)
[2018-01-09] MEDS: BUDESONIDE/FORMETEROL FUMARATE 160/4.5 mcg INHALER IH SCH ×2 (09:36→21:24)
--- NOTE | 2018-01-09 10:26 | PN ---
Progress Note (short form) - Note Progress Note: PULMONARY Still with nonproductive cough but no shortness of breath. Vital Signs Period Temp Pulse Resp BP Sys/Hyman Pulse Ox Last 24 Hr 98.1 F-98.6 F 72-100 18-20 102-125/50-72 100 Gen: NAD at rest Heart: RRR Lung: scattered rhonchi Abd: soft, nontender Ext: no edema CBC, BMP 01/07/18 07:00 01/07/18 07:00 Active Medications Acetaminophen (Tylenol -) 1,000 mg PO Q6H PRN PRN Reason: PAIN Last Admin: 01/08/18 11:14 Dose: 1,000 mg Albuterol Sulfate (Ventolin 0.083% Nebulizer Soln -) 1 amp NEB Q6H PRN PRN Reason: SHORT OF BREATH/WHEEZING Albuterol/Ipratropium (Duoneb -) 1 amp NEB RTID [facility] Last Admin: 01/09/18 07:35 Dose: 1 amp Budesonide/Formoterol Fumarate (Symbicort 160/4.5mcg -) 2 puff IH BID [facility] Last Admin: 01/09/18 09:36 Dose: 2 puff Celecoxib (Celebrex -) 200 mg PO BID [facility] Last Admin: 01/09/18 09:34 Dose: 200 mg Docusate Sodium (Colace -) 100 mg PO BID PRN PRN Reason: CONSTIPATION Gabapentin (Neurontin -) 300 mg PO HS [facility] Last Admin: 01/08/18 21:47 Dose: 300 mg Ondansetron HCl (Zofran Injection) 4 mg IVPUSH Q6H PRN PRN Reason: NAUSEA AND/OR VOMITING Oxycodone HCl (Roxicodone -) 10 mg PO Q4H PRN PRN Reason: PAIN LEVEL 6-10 Oxycodone HCl (Roxicodone -) 5 mg PO Q4H PRN PRN Reason: PAIN LEVEL 1-5 Last Admin: 01/09/18 09:34 Dose: 5 mg Pantoprazole Sodium (Protonix -) 40 mg PO DAILY [facility] Last Admin: 01/09/18 09:35 Dose: 40 mg Polyethylene Glycol (Miralax (For Daily Use) -) 17 gm PO DAILY [facility] Last Admin: 01/09/18 09:34 Dose: Not Given Prednisone (Deltasone -) 5 mg PO DAILY [facility] Last Admin: 01/09/18 09:34 Dose: 5 mg Senna (Senna -) 1 tab PO [facility] Last Admin: 01/08/18 21:47 Dose: 1 tab Trazodone HCl (Desyrel -) 150 mg PO [facility] Last Admin: 01/08/18 21:47 Dose: 150 mg A/P Lumbar Compression Fractures s/p T12-L4 Laminectomies/T9-pelvis instrumentation/T9-S1 posterior lateral arthrodesis Acute COPD Exacerbation improved Chronic Hypoxic Respiratory Failure - inhaled bronchodilators standing and PRN - pain control - incentive spirometry - on empiric antibiotics - O2 to keep SpO2 >90% - PO as tolerated - rehab/PT - DVT prophylaxis
--- NOTE | 2018-01-09 11:58 | PN ---
Teaching Attending Note Name of Resident: Nahid Mata ATTENDING PHYSICIAN STATEMENT I saw and evaluated the patient. I reviewed the resident's note and discussed the case with the resident. I agree with the resident's findings and plan as documented. SUBJECTIVE: Patient complains of back pain with movement. OBJECTIVE: Vital Signs Period Temp Pulse Resp BP Sys/Hyman Pulse Ox Last 24 Hr 98.1 F-98.6 F 72-100 18-20 102-125/50-72 100 HEART: S1S2, RRR LUNGS: Clear ABDOMEN: Soft, non-tender, non-distended, normal BS EXTREMITIES: No edema Current Medications Generic Name Dose Route Start Last Admin Trade Name Freq PRN Reason Stop Dose Admin Acetaminophen 1,000 mg 01/07/18 08:18 01/08/18 11:14 Tylenol - PO 1,000 mg Q6H PRN Administration PAIN Albuterol Sulfate 1 amp 01/07/18 08:18 Ventolin 0.083% Nebulizer Soln - NEB Q6H PRN SHORT OF BREATH/WHEEZING Albuterol/Ipratropium 1 amp 01/07/18 14:00 01/09/18 07:35 Duoneb - NEB 1 amp RTID [facility] Administration Budesonide/Formoterol Fumarate 2 puff 01/07/18 10:00 01/09/18 09:36 Symbicort 160/4.5mcg - IH 2 puff BID [facility] Administration Celecoxib 200 mg 01/07/18 10:00 01/09/18 09:34 Celebrex - PO 200 mg BID [facility] Administration Docusate Sodium 100 mg 01/07/18 08:18 Colace - PO BID PRN CONSTIPATION Gabapentin 300 mg 01/07/18 22:00 01/08/18 21:47 Neurontin - PO 300 mg HS [facility] Administration Ondansetron HCl 4 mg 01/07/18 08:18 Zofran Injection IVPUSH Q6H PRN NAUSEA AND/OR VOMITING Oxycodone HCl 10 mg 01/09/18 08:16 Roxicodone - PO Q4H PRN PAIN LEVEL 6-10 Oxycodone HCl 5 mg 01/09/18 08:16 01/09/18 09:34 Roxicodone - PO 5 mg Q4H PRN Administration PAIN LEVEL 1-5 Oxycodone HCl 10 mg 01/09/18 11:30 Oxycontin - PO BID [facility] Pantoprazole Sodium 40 mg 01/07/18 10:00 01/09/18 09:35 Protonix - PO 40 mg DAILY [facility] Administration Polyethylene Glycol 17 gm 01/07/18 10:00 01/09/18 09:34 Miralax (For Daily Use) - PO Not Given DAILY [facility] Prednisone 5 mg 01/07/18 10:00 01/09/18 09:34 Deltasone - PO 5 mg DAILY [facility] Administration Senna 1 tab 01/07/18 22:00 01/08/18 21:47 Senna - PO 1 tab HS [facility] Administration Trazodone HCl 150 mg 01/07/18 22:00 01/08/18 21:47 Desyrel - PO 150 mg HS [facility] Administration ASSESSMENT AND PLAN: This is an 82 year old man a history of COPD, chronic urinary retention, lumbar compression fractures with spinal stenosis who was admitted for lumbar spine surgery. 1. Lumbar spinal stenosis, lumbar compression fractures, lumbar kyphosis - s/p T12-L4 laminectomies, T9-pelvis posterior instrumentation, T9-S1 posterolateral arthrodesis 01/03 - Pain control - Incentive spirometer - Ambulation - Continue physical therapy 2. Acute exacerbation of COPD - Improved - Continue Prednisone, Symbicort, DuoNeb, oxygen - Patient is steroid-dependent at home 3. Chronic hypoxic respiratory failure - Oxygen to maintain saturation >90% 4. Anemia - Likely acute blood loss on chronic anemia - Hemoglobin is stable 5. Chronic urinary retention - Has Reyes catheter - At home, he does self-catheterization 6. Constipation - Continue Colace, Senna, Miralax 7. Disposition - Plan for subacute rehab
--- NOTE | 2018-01-09 14:19 | PN ---
Physical Exam: SUBJECTIVE: Patient seen and examined at bedside complains of back pain other luong pending placement/authorization OBJECTIVE: Vital Signs Period Temp Pulse Resp BP Sys/Hyman Pulse Ox Last 24 Hr 98.1 F-98.6 F 72-100 18-20 102-125/50-72 100 GENERAL: The patient is awake, alert, and fully oriented, in no acute distress. HEAD: Normal with no signs of trauma. EYES: PERRL, extraocular movements intact, sclera anicteric ENT: Dry mucous membranes. NECK: Trachea midline, full range of motion, supple. LUNGS: Bilateral Rhonchi. Not wheezing able to speak in full sentences. HEART: Regular rate and rhythm, S1, S2 ABDOMEN: Soft, nontender, nondistended, normoactive bowel sounds, no guarding. Ventral hernia EXTREMITIES: well-perfused, no edema. NEUROLOGICAL: Cranial nerves II through XII grossly intact. Normal speech, gait not observed. sensation intact in all extremities. strength 4/5 in bilateral lower extremities. Strength 5/5 in upper extremities. PSYCH: Normal mood, normal affect. SKIN: Warm, dry, normal turgor. Incision with some blood tinged serous discharge. Active Medications Generic Name Dose Route Start Last Admin Trade Name Freq PRN Reason Stop Dose Admin Acetaminophen 1,000 mg 01/07/18 08:18 01/08/18 11:14 Tylenol - PO 1,000 mg Q6H PRN Administration PAIN Albuterol Sulfate 1 amp 01/07/18 08:18 Ventolin 0.083% Nebulizer Soln - NEB Q6H PRN SHORT OF BREATH/WHEEZING Albuterol/Ipratropium 1 amp 01/07/18 14:00 01/09/18 13:52 Duoneb - NEB 1 amp RTID [facility] Administration Budesonide/Formoterol Fumarate 2 puff 01/07/18 10:00 01/09/18 09:36 Symbicort 160/4.5mcg - IH 2 puff BID [facility] Administration Celecoxib 200 mg 01/07/18 10:00 01/09/18 09:34 Celebrex - PO 200 mg BID [facility] Administration Docusate Sodium 100 mg 01/07/18 08:18 Colace - PO BID PRN CONSTIPATION Gabapentin 300 mg 01/07/18 22:00 01/08/18 21:47 Neurontin - PO 300 mg HS [facility] Administration Ondansetron HCl 4 mg 01/07/18 08:18 Zofran Injection IVPUSH Q6H PRN NAUSEA AND/OR VOMITING Oxycodone HCl 10 mg 01/09/18 08:16 Roxicodone - PO Q4H PRN PAIN LEVEL 6-10 Oxycodone HCl 5 mg 01/09/18 08:16 01/09/18 09:34 Roxicodone - PO 5 mg Q4H PRN Administration PAIN LEVEL 1-5 Oxycodone HCl 10 mg 01/09/18 11:30 Oxycontin - PO BID [facility] Pantoprazole Sodium 40 mg 01/07/18 10:00 01/09/18 09:35 Protonix - PO 40 mg DAILY [facility] Administration Polyethylene Glycol 17 gm 01/07/18 10:00 01/09/18 09:34 Miralax (For Daily Use) - PO Not Given DAILY [facility] Prednisone 5 mg 01/07/18 10:00 01/09/18 09:34 Deltasone - PO 5 mg DAILY [facility] Administration Senna 1 tab 01/07/18 22:00 01/08/18 21:47 Senna - PO 1 tab HS [facility] Administration Trazodone HCl 150 mg 01/07/18 22:00 01/08/18 21:47 Desyrel - PO 150 mg HS [facility] Administration ASSESSMENT/PLAN: 82 year old male with a hx of COPD, chronic urinary retention, spinal stenosis, and multiple falls is post op day # 2 s/p T12-L4 laminectomies, T9-pelvis posterior instrumentation, T9-S1 manufacturing process engineer-lateral arthrodesis, Autograft, Allograft, and Bone marrow aspirate. Lower back pain: L1, L3 compression fractures, Kyphosis, Spinal stenosis, Segmental instability, Progressive neurological decline POD #2 s/p T12-L4 laminectomies, T9-pelvis posterior instrumentation, T9-S1 manufacturing process engineer-lateral arthrodesis, Autograft, Allograft, and Bone marrow aspirate. Patient tolerated the procedure well continue pain control with oxycontin BID and oxycodone PRN-oxycontin stopped will restart PT consult Incentive spirometry-continues to use incentive spirometer pending placement COPD not in exacerbation: Continue Duonebs patient given solu-medrol yesterday IV Will stop solumedrol will restart home dose of prednisone 5mg po daily patient on Dulera at home on symbicort here O2 PRN and while sleeping Chronic Urinary Retention Continue holder catheter for now To continue self catheterizing at home Chronic constipation: miralax chronic Anemia. blood loss 700ml in OR Hb trended for 3 days and stable will stop trending FEN no IVF No electrolyte issues tolerated FLD will advance to regular diet Prophylaxis SCDs-No chemical PPx per spine surgery Protonix for GERD PT consult Case discussed with Dr. Woo Pending authorization for placement Visit type - Emergency Visit Emergency Visit: No - New Patient This patient is new to me today: No - Critical Care Critical Care patient: No - Discharge Referral Referred to [facility] Med P.C.: No
[2018-01-09] MEDS: oxyCODONE HCL 10 MG SUSTAINED ACTING TABLET PO SCH ×2 (14:34→21:21)
[2018-01-09] MEDS: traZODone HCL 50 MG TABLET (FP) PO SCH (21:22)
[2018-01-09] MEDS: GABAPENTIN 300 MG CAPSULE (FP) PO SCH (21:22)
[2018-01-09] MEDS: SENNOSIDES 8.6MG TABLET (FP) PO SCH (21:23)
[2018-01-10 06:58] LABS: HEMATOCRIT 25.2 % (35.4-49); MCH 27.6 pg (25.7-33.7); MCHC 31.7 g/dl (32.0-35.9); MEAN CELL VOLUME 87.2 fl (80-96); MEAN PLT VOLUME 7.2 fl (7.5-11.1); PLATELET COUNT 190 K/MM3 (134-434); RBC 2.89 M/mm3 (4.00-5.60); RDW 13.4 % (11.9-15.9); WHITE BLOOD COUNT 5.5 K/mm3 (4.0-10.0)
[2018-01-10] MEDS: ALBUTEROL SO4 2.5/IPRATROPIUM 0.5 INH SOL 3 ML VIAL.NEB. NEB SCH ×3 (07:35→20:30)
--- NOTE | 2018-01-10 10:36 | PN ---
Progress Note (short form) - Note Progress Note: PULMONARY More confused today. +nonproductive cough. No fevers. Vital Signs Period Temp Pulse Resp BP Sys/Hyman Pulse Ox Last 24 Hr 97.6 F-99.8 F 60-85 18-20 110-144/52-60 98 Gen: NAD at rest Heart: RRR Lung: scattered rhonchi Abd: soft, nontender Ext: no edema CBC, BMP 01/10/18 06:30 01/07/18 07:00 Active Medications Acetaminophen (Tylenol -) 1,000 mg PO Q6H PRN PRN Reason: PAIN Last Admin: 01/08/18 11:14 Dose: 1,000 mg Albuterol Sulfate (Ventolin 0.083% Nebulizer Soln -) 1 amp NEB Q6H PRN PRN Reason: SHORT OF BREATH/WHEEZING Albuterol/Ipratropium (Duoneb -) 1 amp NEB RTID [facility] Last Admin: 01/10/18 07:35 Dose: 1 amp Budesonide/Formoterol Fumarate (Symbicort 160/4.5mcg -) 2 puff IH BID [facility] Last Admin: 01/09/18 21:24 Dose: 2 puff Celecoxib (Celebrex -) 200 mg PO BID [facility] Last Admin: 01/09/18 21:22 Dose: 200 mg Docusate Sodium (Colace -) 100 mg PO BID PRN PRN Reason: CONSTIPATION Gabapentin (Neurontin -) 300 mg PO HS [facility] Last Admin: 01/09/18 21:22 Dose: 300 mg Ondansetron HCl (Zofran Injection) 4 mg IVPUSH Q6H PRN PRN Reason: NAUSEA AND/OR VOMITING Oxycodone HCl (Roxicodone -) 10 mg PO Q4H PRN PRN Reason: PAIN LEVEL 6-10 Oxycodone HCl (Roxicodone -) 5 mg PO Q4H PRN PRN Reason: PAIN LEVEL 1-5 Last Admin: 01/09/18 09:34 Dose: 5 mg Pantoprazole Sodium (Protonix -) 40 mg PO DAILY [facility] Last Admin: 01/09/18 09:35 Dose: 40 mg Polyethylene Glycol (Miralax (For Daily Use) -) 17 gm PO DAILY [facility] Last Admin: 01/09/18 09:34 Dose: Not Given Prednisone (Deltasone -) 5 mg PO DAILY [facility] Last Admin: 01/09/18 09:34 Dose: 5 mg Senna (Senna -) 1 tab PO [facility] Last Admin: 01/09/18 21:23 Dose: Not Given Trazodone HCl (Desyrel -) 150 mg PO [facility] Last Admin: 01/09/18 21:22 Dose: 150 mg A/P Lumbar Compression Fractures s/p T12-L4 Laminectomies/T9-pelvis instrumentation/T9-S1 posterior lateral arthrodesis Acute COPD Exacerbation improved Chronic Hypoxic Respiratory Failure - inhaled bronchodilators standing and PRN - pain control - incentive spirometry - on empiric antibiotics - O2 to keep SpO2 >90% - PO as tolerated - rehab/PT - DVT prophylaxis
[2018-01-10] MEDS ORDERED: PT OWN MED DRAWER 7, Y5N ONE ×4 (11:01→22:32)
[2018-01-10] MEDS: CELECOXIB 200 MG CAPSULE PO SCH (11:10)
[2018-01-10] MEDS: BUDESONIDE/FORMETEROL FUMARATE 160/4.5 mcg INHALER IH SCH ×3 (11:10→22:21)
[2018-01-10] MEDS: predniSONE 5 MG TABLET (UD) PO SCH (11:10)
[2018-01-10] MEDS: POLYETHYLENE GLYCOL 3350 119 GM BTL PO SCH (11:10)
[2018-01-10] MEDS: PANTOPRAZOLE 40 MG TABLET (FP) PO SCH (11:10)
--- NOTE | 2018-01-10 11:54 | PN ---
Physical Exam: SUBJECTIVE: Patient seen and examined at bedside. confused this morning. Started on oxycontin 10mg po again BID. Patient stated on admission he gets "loopy" from oxtcodone. Tmax 99.8 this AM Hb 8. Spoke with surgeon will transfuse 2 units PRBCs at his request. OBJECTIVE: Vital Signs Period Temp Pulse Resp BP Sys/Hyman Pulse Ox Last 24 Hr 97.6 F-99.8 F 60-88 18-20 106-144/52-61 98 GENERAL: The patient is awake, alert, and oriented to self. knows he is in the hospital but thinks its called [facility]. no acute distress. HEAD: Normal with no signs of trauma. EYES: PERRL, extraocular movements intact ENT: Moist mucous membranes. NECK: Trachea midline, full range of motion, supple. LUNGS: Bilateral Rhonchi. Not wheezing able to speak in full sentences. HEART: Regular rate and rhythm, S1, S2 ABDOMEN: Soft, nontender, nondistended, normoactive bowel sounds, no guarding. Ventral hernia EXTREMITIES: well-perfused, no edema. NEUROLOGICAL: Cranial nerves II through XII grossly intact. Normal speech, gait not observed. sensation intact in all extremities. strength 4/5 in bilateral lower extremities. Strength 5/5 in upper extremities. PSYCH: Normal mood, normal affect. SKIN: Warm, dry, normal turgor. Incision with some blood tinged serous discharge. incision with no erythema fluctuance or induration. no foul smell or purulent drainage, Laboratory Results - last 24 hr 01/10/18 06:30 WBC 5.5 RBC 2.89 L Hgb 8.0 L Hct 25.2 L MCV 87.2 MCH 27.6 MCHC 31.7 L RDW 13.4 Plt Count 190 MPV 7.2 L Active Medications Generic Name Dose Route Start Last Admin Trade Name Freq PRN Reason Stop Dose Admin Acetaminophen 1,000 mg 01/07/18 08:18 01/08/18 11:14 Tylenol - PO 1,000 mg Q6H PRN Administration PAIN Albuterol Sulfate 1 amp 01/07/18 08:18 Ventolin 0.083% Nebulizer Soln - NEB Q6H PRN SHORT OF BREATH/WHEEZING Albuterol/Ipratropium 1 amp 01/07/18 14:00 01/10/18 07:35 Duoneb - NEB 1 amp RTID SABINA Administration Budesonide/Formoterol Fumarate 2 puff 01/07/18 10:00 01/09/18 21:24 Symbicort 160/4.5mcg - IH 2 puff BID SABINA Administration Celecoxib 200 mg 01/07/18 10:00 01/10/18 11:10 Celebrex - PO 200 mg BID SABINA Administration Docusate Sodium 100 mg 01/07/18 08:18 Colace - PO BID PRN CONSTIPATION Gabapentin 300 mg 01/07/18 22:00 01/09/18 21:22 Neurontin - PO 300 mg HS SABINA Administration Ondansetron HCl 4 mg 01/07/18 08:18 Zofran Injection IVPUSH Q6H PRN NAUSEA AND/OR VOMITING Oxycodone HCl 10 mg 01/09/18 08:16 Roxicodone - PO Q4H PRN PAIN LEVEL 6-10 Oxycodone HCl 5 mg 01/09/18 08:16 01/09/18 09:34 Roxicodone - PO 5 mg Q4H PRN Administration PAIN LEVEL 1-5 Pantoprazole Sodium 40 mg 01/07/18 10:00 01/10/18 11:10 Protonix - PO 40 mg DAILY SABINA Administration Polyethylene Glycol 17 gm 01/07/18 10:00 01/10/18 11:10 Miralax (For Daily Use) - PO 17 gm DAILY SABINA Administration Prednisone 5 mg 01/07/18 10:00 01/10/18 11:10 Deltasone - PO 5 mg DAILY SABINA Administration Senna 1 tab 01/07/18 22:00 01/09/18 21:23 Senna - PO Not Given HS SABINA Trazodone HCl 150 mg 01/07/18 22:00 01/09/18 21:22 Desyrel - PO 150 mg HS SABINA Administration ASSESSMENT/PLAN: 82 year old male with a hx of COPD, chronic urinary retention, spinal stenosis, and multiple falls is post op day # 2 s/p T12-L4 laminectomies, T9-pelvis posterior instrumentation, T9-S1 masseur/masseuse-lateral arthrodesis, Autograft, Allograft, and Bone marrow aspirate. Lower back pain: L1, L3 compression fractures, Kyphosis, Spinal stenosis, Segmental instability, Progressive neurological decline POD #2 s/p T12-L4 laminectomies, T9-pelvis posterior instrumentation, T9-S1 masseur/masseuse-lateral arthrodesis, Autograft, Allograft, and Bone marrow aspirate. Patient tolerated the procedure well continue pain control with oxycodone PRN-stop oxycontin due to mental status changes PT consult Incentive spirometry-continues to use incentive spirometer pending placement COPD not in exacerbation: Continue Duonebs patient given solu-medrol yesterday IV Will stop solumedrol will restart home dose of prednisone 5mg po daily patient on Dulera at home on symbicort here O2 PRN and while sleeping Chronic Urinary Retention Continue self catheterization BID To continue self catheterizing at home Low grade fever: If Patient has temperature 100.4 or greater will kwok culture UA UCx BCx CXR suspect from atelectasis Chronic constipation: miralax acute on chronic Anemia. blood loss 700ml in OR Hb 8 this AM will transfuse 2 units PRBCs FEN no IVF No electrolyte issues tolerated FLD will advance to regular diet Prophylaxis SCDs-No chemical PPx per spine surgery Protonix for GERD PT consult Case discussed with Dr. Woo Pending authorization for placement Visit type - Emergency Visit Emergency Visit: Yes ED Registration Date: 01/03/18 Care time: The patient presented to the Emergency Department on the above date and was hospitalized for further evaluation of their emergent condition. - New Patient This patient is new to me today: Yes Date on this admission: 01/10/18 - Critical Care Critical Care patient: No - Discharge Referral Referred to [facility] Med P.C.: No
[2018-01-10] MEDS: oxyCODONE HCL 5 MG TABLET PO PRN ×2 (12:54→18:11)
[2018-01-10] MEDS: ACETAMINOPHEN 500 MG TABLET (FP) PO PRN (14:17)
--- NOTE | 2018-01-10 15:30 | PN ---
Teaching Attending Note Name of Resident: Nahid Mata ATTENDING PHYSICIAN STATEMENT I saw and evaluated the patient. I reviewed the resident's note and discussed the case with the resident. I agree with the resident's findings and plan as documented. SUBJECTIVE: Patient has been confused. He has temp 100.6. OBJECTIVE: Vital Signs Period Temp Pulse Resp BP Sys/Hyman Pulse Ox Last 24 Hr 97.6 F-100.6 F 60-105 20-20 106-144/53-61 97-98 HEART: S1S2, tachycardic LUNGS: Bilateral rhonchi R>L ABDOMEN: Soft, non-tender, non-distended, normal BS EXTREMITIES: No edema Laboratory Results - last 24 hr 01/10/18 01/10/18 06:30 12:18 WBC 5.5 RBC 2.89 L Hgb 8.0 L Hct 25.2 L MCV 87.2 MCH 27.6 MCHC 31.7 L RDW 13.4 Plt Count 190 MPV 7.2 L Blood Type A POSITIVE Antibody Screen Negative Crossmatch See Detail Current Medications Generic Name Dose Route Start Last Admin Trade Name Freq PRN Reason Stop Dose Admin Acetaminophen 1,000 mg 01/07/18 08:18 01/10/18 14:17 Tylenol - PO 1,000 mg Q6H PRN Administration PAIN Albuterol Sulfate 1 amp 01/07/18 08:18 Ventolin 0.083% Nebulizer Soln - NEB Q6H PRN SHORT OF BREATH/WHEEZING Albuterol/Ipratropium 1 amp 01/07/18 14:00 01/10/18 13:12 Duoneb - NEB 1 amp RTID SABINA Administration Budesonide/Formoterol Fumarate 2 puff 01/07/18 10:00 01/10/18 12:55 Symbicort 160/4.5mcg - IH 2 puff BID SABINA Administration Celecoxib 200 mg 01/07/18 10:00 01/10/18 11:10 Celebrex - PO 200 mg BID SABINA Administration Docusate Sodium 100 mg 01/07/18 08:18 Colace - PO BID PRN CONSTIPATION Gabapentin 300 mg 01/07/18 22:00 01/09/18 21:22 Neurontin - PO 300 mg HS SABINA Administration Ondansetron HCl 4 mg 01/07/18 08:18 Zofran Injection IVPUSH Q6H PRN NAUSEA AND/OR VOMITING Oxycodone HCl 10 mg 01/09/18 08:16 Roxicodone - PO Q4H PRN PAIN LEVEL 6-10 Oxycodone HCl 5 mg 01/09/18 08:16 01/10/18 12:54 Roxicodone - PO 5 mg Q4H PRN Administration PAIN LEVEL 1-5 Pantoprazole Sodium 40 mg 01/07/18 10:00 01/10/18 11:10 Protonix - PO 40 mg DAILY SABINA Administration Polyethylene Glycol 17 gm 01/07/18 10:00 01/10/18 11:10 Miralax (For Daily Use) - PO 17 gm DAILY SABINA Administration Prednisone 5 mg 01/07/18 10:00 01/10/18 11:10 Deltasone - PO 5 mg DAILY SABINA Administration Senna 1 tab 01/07/18 22:00 01/09/18 21:23 Senna - PO Not Given HS SABINA Trazodone HCl 150 mg 01/07/18 22:00 01/09/18 21:22 Desyrel - PO 150 mg HS SABINA Administration ASSESSMENT AND PLAN: This is an 82 year old man a history of COPD, chronic urinary retention, lumbar compression fractures with spinal stenosis who was admitted for lumbar spine surgery. 1. Lumbar spinal stenosis, lumbar compression fractures, lumbar kyphosis - s/p T12-L4 laminectomies, T9-pelvis posterior instrumentation, T9-S1 posterolateral arthrodesis 01/03 - Pain control - Incentive spirometer - Ambulation - Continue physical therapy 2. Fever - Possibly secondary to atelectasis - Check UA, CXR, blood cultures, lactic acid 3. Acute exacerbation of COPD - Improved - Continue Prednisone, Symbicort, DuoNeb, oxygen - Patient is steroid-dependent at home 4. Chronic hypoxic respiratory failure - Oxygen to maintain saturation >90% 5. Anemia - Likely acute blood loss on chronic anemia - Hemoglobin 8.0 today (was 10.3 post-op) - 2 units PRBCs ordered 6. Chronic urinary retention - Continue catheterization (does self-catheterization at home) 7. Constipation - Continue Colace, Senna, Miralax 8. Disposition - Plan for subacute rehab
[2018-01-10] MEDS ORDERED: VANCOMYCIN 1,000 MG in DEXTROSE 5%-WATER - 250 ML IVPB ONE (17:00)
[2018-01-10] MEDS ORDERED: DEXTROSE 5%-WATER 100 ML IVPB ONE ×3 (17:13→22:20)
[2018-01-10] MEDS ORDERED: PIPERACILLIN/TAZOBACTAM 4.5 GM VIAL IVPB ONE ×3 (17:13→22:20)
[2018-01-10 17:16] LABS: URINE APPEARANCE SLCLOUDY; URINE BILIRUBIN NEGATIVE (<2.0 mg/dL); URINE COLOR YELLOW; URINE GLUCOSE (UA) NEGATIVE (NEGATIVE); URINE KETONE NEGATIVE (NEGATIVE); URINE NITRITE NEGATIVE (NEGATIVE); URINE PROTEIN NEGATIVE (NEGATIVE); URINE UROBILINOGEN NEGATIVE mg/dL (0.2-1.0)
[2018-01-10 17:20] LABS: URINE LEUK ESTERASE 3+ (NEGATIVE)
[2018-01-10] MEDS: PIPERACILLIN/TAZOB 4.5 GM 4.5 GM in DEXTROSE 5%-WATER 100 ML IVPB SCH ×2 (17:23→22:23)
[2018-01-10] MEDS: SODIUM CHLORIDE 1,000 ML IV SCH (17:23)
[2018-01-10] MEDS: IBUPROFEN 600 MG TABLET (FP) PO PRN ×2 (17:24→22:22)
[2018-01-10 17:31] LABS: URINE BACTERIA MANY /hpf (NONE SEEN); URINE MUCUS MANY
[2018-01-10] MEDS: GABAPENTIN 300 MG CAPSULE (FP) PO SCH (22:23)
[2018-01-10] MEDS: SENNOSIDES 8.6MG TABLET (FP) PO SCH ×2 (22:23→22:25)
[2018-01-10] MEDS: traZODone HCL 50 MG TABLET (FP) PO SCH (22:31)
[2018-01-11] MEDS: PIPERACILLIN/TAZOB 4.5 GM 4.5 GM in DEXTROSE 5%-WATER 100 ML IVPB SCH ×4 (04:31→18:27)
[2018-01-11] MEDS: SODIUM CHLORIDE 1,000 ML IV SCH ×2 (04:31→22:04)
[2018-01-11] MEDS: ALBUTEROL SO4 2.5/IPRATROPIUM 0.5 INH SOL 3 ML VIAL.NEB. NEB SCH ×3 (07:37→20:46)
[2018-01-11 07:40] LABS: HEMATOCRIT 24.4 % (35.4-49); HEMOGLOBIN 8.1 GM/dL (11.7-16.9); MCH 28.4 pg (25.7-33.7); MEAN CELL VOLUME 86.1 fl (80-96); MEAN PLT VOLUME 7.9 fl (7.5-11.1); PLATELET COUNT 209 K/MM3 (134-434); RBC 2.84 M/mm3 (4.00-5.60); RDW 13.5 % (11.9-15.9); WHITE BLOOD COUNT 9.6 K/mm3 (4.0-10.0)
[2018-01-11 08:30] LABS: ALBUMIN 2.1 g/dl (3.4-5.0); ALK PHOS 148 U/L (45-117); ANION GAP 8 MMOL/L (8-16); BLOOD UREA NITROGEN 21 mg/dL (7-18); CALCIUM 8.4 mg/dL (8.5-10.1); CHLORIDE 99 mmol/L (98-107); CO2 28 mmol/L (21-32); CREATININE 0.8 mg/dL (0.7-1.3); GLUCOSE,RANDOM 97 mg/dL (74-106); MAGNESIUM 1.9 mg/dL (1.8-2.4); PHOSPHOROUS 3.3 mg/dL (2.5-4.9); POTASSIUM 4.4 mmol/L (3.5-5.1); SGOT/AST 39 U/L (15-37); SGPT/ALT 43 U/L (12-78); SODIUM 135 mmol/L (136-145); TOT PROT 5.2 g/dl (6.4-8.2)
[2018-01-11] MEDS: PANTOPRAZOLE 40 MG TABLET (FP) PO SCH (11:11)
[2018-01-11] MEDS: BUDESONIDE/FORMETEROL FUMARATE 160/4.5 mcg INHALER IH SCH ×2 (11:12→22:04)
--- NOTE | 2018-01-11 11:37 | PN ---
Progress Note (short form) - Note Progress Note: fevers POD #8 s/p laminectomyyyy T12 to L4 cough pyuria patient confused and combative agree with rick/bertram would culture drainage of the back as well surgical f/u of drainage from the back d/w Resident Problem List - Problems (1) Fever Code(s): R50.9 - FEVER, UNSPECIFIED (2) Status post laminectomy Code(s): Z98.890 - OTHER SPECIFIED POSTPROCEDURAL STATES
[2018-01-11] MEDS ORDERED: VANCOMYCIN 1,250 MG in DEXTROSE 5%-WATER - 250 ML IVPB ONE (12:00)
[2018-01-11] MEDS ORDERED: VANCOMYCIN 1,250 MG in DEXTROSE 5%-WATER - 250 ML IVPB SCH ×2 (12:05→12:13)
--- NOTE | 2018-01-11 13:03 | PN ---
Physical Exam: SUBJECTIVE: Patient seen and examined at bedside Currently Afebrile Still confused but not as much as yesterday Helped ambulate patient with PT. Patient only able to walk around the bed with a rolling walker to sit in a chair. Got very tired and felt weak. Chappell like he was going to fall or his legs would give out. BP documented 90/70 this AM at 7AM. I went to see patient right away and his repeat BP was 112/60. HR 75 and he was feeling well. 5 different family members spoken to yesterday including 2 daughters and all questions answered Found to have pneumonia and UTI yesterday and given ABx OBJECTIVE: Vital Signs Period Temp Pulse Resp BP Sys/Hyman Pulse Ox Last 24 Hr 99.2 F-101.7 F 85-105 20-20 90-132/52-70 94 GENERAL: The patient is awake, alert, and oriented to self and place. was off on the year by one year. Thought it was 2019. no acute distress. HEAD: Normal with no signs of trauma. EYES: PERRL, extraocular movements intact ENT: Moist mucous membranes. NECK: Trachea midline, full range of motion, supple. LUNGS: Bilateral Rhonchi. scattered wheezing. able to speak in full sentences. HEART: Regular rate and rhythm, S1, S2 ABDOMEN: Soft, nontender, nondistended, normoactive bowel sounds, no guarding. Ventral hernia EXTREMITIES: well-perfused, no edema. NEUROLOGICAL: Cranial nerves II through XII grossly intact. Normal speech. sensation intact in all extremities. strength 4/5 in bilateral lower extremities. Strength 5/5 in upper extremities. PSYCH: Normal mood, normal affect. Ambulated with a rolling walker and 2 people assisting him on either side. SKIN: Warm, dry, normal turgor. Incision with some blood tinged serous discharge. Laboratory Results - last 24 hr 01/10/18 01/10/18 01/10/18 12:18 15:00 16:25 WBC RBC Hgb Hct MCV MCH MCHC RDW Plt Count MPV Sodium Potassium Chloride Carbon Dioxide Anion Gap BUN Creatinine Creat Clearance w eGFR Random Glucose Lactic Acid 0.7 Calcium Phosphorus Magnesium Total Bilirubin AST ALT Alkaline Phosphatase Total Protein Albumin Urine Color Yellow Urine Appearance Slcloudy Urine pH 6.0 Ur Specific [place] 1.014 Urine Protein Negative Urine Glucose (UA) Negative Urine Ketones Negative Urine Blood 1+ H Urine Nitrite Negative Urine Bilirubin Negative Urine Urobilinogen Negative Ur Leukocyte Esterase 3+ H Urine WBC (Auto) 211 Urine RBC (Auto) None Urine Bacteria Many Urine Mucus Many Random Vancomycin Blood Type A POSITIVE Antibody Screen Negative Crossmatch See Detail 01/11/18 01/11/18 01/11/18 07:00 07:00 07:00 WBC 9.6 RBC 2.84 L Hgb 8.1 L Hct 24.4 L MCV 86.1 MCH 28.4 MCHC 33.0 RDW 13.5 Plt Count 209 MPV 7.9 Sodium 135 L Potassium 4.4 Chloride 99 Carbon Dioxide 28 Anion Gap 8 BUN 21 H Creatinine 0.8 Creat Clearance w eGFR > 60 Random Glucose 97 Lactic Acid Calcium 8.4 L Phosphorus 3.3 D Magnesium 1.9 Total Bilirubin 1.0 AST 39 H D ALT 43 D Alkaline Phosphatase 148 H D Total Protein 5.2 L Albumin 2.1 L Urine Color Urine Appearance Urine pH Ur Specific [place] Urine Protein Urine Glucose (UA) Urine Ketones Urine Blood Urine Nitrite Urine Bilirubin Urine Urobilinogen Ur Leukocyte Esterase Urine WBC (Auto) Urine RBC (Auto) Urine Bacteria Urine Mucus Random Vancomycin 5.12 Blood Type Antibody Screen Crossmatch Active Medications Generic Name Dose Route Start Last Admin Trade Name Freq PRN Reason Stop Dose Admin Acetaminophen 1,000 mg 01/07/18 08:18 01/10/18 14:17 Tylenol - PO 1,000 mg Q6H PRN Administration PAIN Albuterol Sulfate 1 amp 01/07/18 08:18 Ventolin 0.083% Nebulizer Soln - NEB Q6H PRN SHORT OF BREATH/WHEEZING Albuterol/Ipratropium 1 amp 01/07/18 14:00 01/11/18 07:37 Duoneb - NEB 1 amp RTID SABINA Administration Budesonide/Formoterol Fumarate 2 puff 01/07/18 10:00 01/11/18 11:12 Symbicort 160/4.5mcg - IH 2 puff BID SABINA Administration Celecoxib 200 mg 01/07/18 10:00 01/10/18 11:10 Celebrex - PO 200 mg BID SABINA Administration Docusate Sodium 100 mg 01/07/18 08:18 Colace - PO BID PRN CONSTIPATION Gabapentin 300 mg 01/07/18 22:00 01/10/18 22:23 Neurontin - PO 300 mg HS SABINA Administration Sodium Chloride 1,000 mls @ 100 mls/hr 01/10/18 17:00 01/11/18 04:31 Normal Saline - IV 100 mls/hr ASDIR SABINA Administration Piperacillin Sod/Tazobactam 100 mls @ 200 mls/hr 01/11/18 11:45 Sod 4.5 gm/ Dextrose IVPB Q8H-IV SABINA Protocol Vancomycin HCl 1,250 mg/ 250 mls @ 250 mls/2 hr 01/11/18 12:13 Dextrose IVPB BID SABINA Protocol Ibuprofen 600 mg 01/10/18 16:45 01/10/18 22:22 Motrin - PO 600 mg Q6H PRN Administration FEVER Ondansetron HCl 4 mg 01/07/18 08:18 Zofran Injection IVPUSH Q6H PRN NAUSEA AND/OR VOMITING Oxycodone HCl 10 mg 01/09/18 08:16 Roxicodone - PO Q4H PRN PAIN LEVEL 6-10 Oxycodone HCl 5 mg 01/09/18 08:16 01/10/18 18:11 Roxicodone - PO 5 mg Q4H PRN Administration PAIN LEVEL 1-5 Pantoprazole Sodium 40 mg 01/07/18 10:00 01/11/18 11:11 Protonix - PO 40 mg DAILY SABINA Administration Polyethylene Glycol 17 gm 01/07/18 10:00 01/10/18 11:10 Miralax (For Daily Use) - PO 17 gm DAILY SABINA Administration Prednisone 5 mg 01/07/18 10:00 01/10/18 11:10 Deltasone - PO 5 mg DAILY SABINA Administration Senna 1 tab 01/07/18 22:00 01/10/18 22:25 Senna - PO Not Given HS SABINA Trazodone HCl 150 mg 01/07/18 22:00 01/10/18 22:31 Desyrel - PO Not Given HS SABINA ASSESSMENT/PLAN: 82 year old male with a hx of COPD, chronic urinary retention, spinal stenosis, and multiple falls is post op day # 8 s/p T12-L4 laminectomies, T9-pelvis posterior instrumentation, T9-S1 system technologist-lateral arthrodesis, Autograft, Allograft, and Bone marrow aspirate. Sepsis/Low grade fever: secondary to UTI and hospital acquired pneumonia patient spiked fever yesterday and he was pancultured and had CXR done which showed LLL pneumonia. UA also showed 3+ LE and >200 WBCs Started on vanco/zosyn yesterday for hospital acquired pneumonia and will also cover UTI. continue tylenol/advil for fever hold celebrex for now as this is also an NSAID Fever curve trending down WBC was also low past few day and his WBC count is WNL as of yesterday so this may be leukocytosis from sepsis in comparison to what his WBC count is at baseline Lower back pain: L1, L3 compression fractures, Kyphosis, Spinal stenosis, Segmental instability, Progressive neurological decline POD #8 s/p T12-L4 laminectomies, T9-pelvis posterior instrumentation, T9-S1 system technologist-lateral arthrodesis, Autograft, Allograft, and Bone marrow aspirate. Patient tolerated the procedure well continue pain control with oxycodone PRN-stop oxycontin due to mental status changes Per family patient has AMS when takes trazodone and oxycodone together PT consult appreciated Incentive spirometry COPD not in exacerbation: Continue Duonebs continue prednisone 5mg po daily patient on Dulera at home on symbicort here O2 PRN and while sleeping Chronic Urinary Retention Continue self catheterization BID To continue self catheterizing at home Chronic constipation: miralax acute on chronic Anemia. blood loss 700ml in OR Hb 8.1 this AM has stabilized will hold off on transfusing If drops any further will transfuse FEN NS @ 100ml/hr No electrolyte issues Regular diet Prophylaxis SCDs-No chemical PPx per spine surgery Protonix for GERD PT consult Case discussed with Dr. Woo Visit type - Emergency Visit Emergency Visit: Yes ED Registration Date: 01/03/18 Care time: The patient presented to the Emergency Department on the above date and was hospitalized for further evaluation of their emergent condition. - New Patient This patient is new to me today: No - Critical Care Critical Care patient: No - Discharge Referral Referred to [facility] Med P.C.: No
[2018-01-11] MEDS: predniSONE 5 MG TABLET (UD) PO SCH (13:51)
[2018-01-11] MEDS: POLYETHYLENE GLYCOL 3350 119 GM BTL PO SCH (13:53)
[2018-01-11] MEDS ORDERED: PIPERACILLIN/TAZOBACTAM 4.5 GM VIAL IVPB ONE (13:56)
[2018-01-11] MEDS ORDERED: DEXTROSE 5%-WATER 100 ML IVPB ONE (13:56)
--- NOTE | 2018-01-11 14:03 | PN ---
Progress Note (short form) - Note Progress Note: PULMONARY Denies shortness of breath. +nonproductive cough. Fevers overnight. CXR showing LLL infiltrate. Vital Signs Period Temp Pulse Resp BP Sys/Hyman Pulse Ox Last 24 Hr 99.2 F-101.7 F 85-105 20-20 90-132/52-70 94 Gen: NAD at rest Heart: RRR Lung: scattered rhonchi Abd: soft, nontender Ext: no edema CBC, BMP 01/11/18 07:00 01/11/18 07:00 Active Medications Acetaminophen (Tylenol -) 1,000 mg PO Q6H PRN PRN Reason: PAIN Last Admin: 01/10/18 14:17 Dose: 1,000 mg Albuterol Sulfate (Ventolin 0.083% Nebulizer Soln -) 1 amp NEB Q6H PRN PRN Reason: SHORT OF BREATH/WHEEZING Albuterol/Ipratropium (Duoneb -) 1 amp NEB RTID SABINA Last Admin: 01/11/18 07:37 Dose: 1 amp Budesonide/Formoterol Fumarate (Symbicort 160/4.5mcg -) 2 puff IH BID SABINA Last Admin: 01/11/18 11:12 Dose: 2 puff Celecoxib (Celebrex -) 200 mg PO BID SABINA Last Admin: 01/10/18 11:10 Dose: 200 mg Docusate Sodium (Colace -) 100 mg PO BID PRN PRN Reason: CONSTIPATION Gabapentin (Neurontin -) 300 mg PO HS SABINA Last Admin: 01/10/18 22:23 Dose: 300 mg Sodium Chloride (Normal Saline -) 1,000 mls @ 100 mls/hr IV ASDIR SABINA Last Admin: 01/11/18 04:31 Dose: 100 mls/hr Piperacillin Sod/Tazobactam (Sod 4.5 gm/ Dextrose) 100 mls @ 200 mls/hr IVPB Q8H-IV SABINA; Protocol Vancomycin HCl 1,250 mg/ (Dextrose) 250 mls @ 250 mls/2 hr IVPB BID@0000,1200 SABINA; Protocol Ibuprofen (Motrin -) 600 mg PO Q6H PRN PRN Reason: FEVER Last Admin: 01/10/18 22:22 Dose: 600 mg Ondansetron HCl (Zofran Injection) 4 mg IVPUSH Q6H PRN PRN Reason: NAUSEA AND/OR VOMITING Oxycodone HCl (Roxicodone -) 10 mg PO Q4H PRN PRN Reason: PAIN LEVEL 6-10 Oxycodone HCl (Roxicodone -) 5 mg PO Q4H PRN PRN Reason: PAIN LEVEL 1-5 Last Admin: 01/10/18 18:11 Dose: 5 mg Pantoprazole Sodium (Protonix -) 40 mg PO DAILY REPLACED BY [facility] Last Admin: 01/11/18 11:11 Dose: 40 mg Polyethylene Glycol (Miralax (For Daily Use) -) 17 gm PO DAILY REPLACED BY [facility] Last Admin: 01/11/18 13:53 Dose: 17 gm Prednisone (Deltasone -) 5 mg PO DAILY REPLACED BY [facility] Last Admin: 01/11/18 13:51 Dose: 5 mg Senna (Senna -) 1 tab PO [facility] Last Admin: 01/10/18 22:25 Dose: Not Given Trazodone HCl (Desyrel -) 150 mg PO [facility] Last Admin: 01/10/18 22:31 Dose: Not Given A/P Lumbar Compression Fractures s/p T12-L4 Laminectomies/T9-pelvis instrumentation/T9-S1 posterior lateral arthrodesis Acute COPD Exacerbation improved Chronic Hypoxic Respiratory Failure Pneumonia - continue antibiotics - f/u cultures - inhaled bronchodilators standing and PRN - pain control - incentive spirometry - O2 to keep SpO2 >90% - PO as tolerated - rehab/PT - DVT prophylaxis
--- NOTE | 2018-01-11 15:51 | PN ---
Teaching Attending Note Name of Resident: Nahid Mata ATTENDING PHYSICIAN STATEMENT I saw and evaluated the patient. I reviewed the resident's note and discussed the case with the resident. I agree with the resident's findings and plan as documented. SUBJECTIVE: Patient is confused. He appears comfortable. He had temp 101.7 yesterday. Chest x-ray showed new left base atelectasis vs infiltrate OBJECTIVE: Vital Signs Period Temp Pulse Resp BP Sys/Hyman Pulse Ox Last 24 Hr 98.8 F-101.7 F 85-104 18-20 90-132/52-70 94 HEART: S1S2, RRR LUNGS: Bilateral rhonchi ABDOMEN: Soft, non-tender, non-distended, normal BS EXTREMITIES: No edema Laboratory Results - last 24 hr 01/10/18 01/10/18 01/11/18 15:00 16:25 07:00 WBC RBC Hgb Hct MCV MCH MCHC RDW Plt Count MPV Sodium Potassium Chloride Carbon Dioxide Anion Gap BUN Creatinine Creat Clearance w eGFR Random Glucose Lactic Acid 0.7 Calcium Phosphorus Magnesium Total Bilirubin AST ALT Alkaline Phosphatase Total Protein Albumin Urine Color Yellow Urine Appearance Slcloudy Urine pH 6.0 Ur Specific [place] 1.014 Urine Protein Negative Urine Glucose (UA) Negative Urine Ketones Negative Urine Blood 1+ H Urine Nitrite Negative Urine Bilirubin Negative Urine Urobilinogen Negative Ur Leukocyte Esterase 3+ H Urine WBC (Auto) 211 Urine RBC (Auto) None Urine Bacteria Many Urine Mucus Many Random Vancomycin 5.12 01/11/18 01/11/18 07:00 07:00 WBC 9.6 RBC 2.84 L Hgb 8.1 L Hct 24.4 L MCV 86.1 MCH 28.4 MCHC 33.0 RDW 13.5 Plt Count 209 MPV 7.9 Sodium 135 L Potassium 4.4 Chloride 99 Carbon Dioxide 28 Anion Gap 8 BUN 21 H Creatinine 0.8 Creat Clearance w eGFR > 60 Random Glucose 97 Lactic Acid Calcium 8.4 L Phosphorus 3.3 D Magnesium 1.9 Total Bilirubin 1.0 AST 39 H D ALT 43 D Alkaline Phosphatase 148 H D Total Protein 5.2 L Albumin 2.1 L Urine Color Urine Appearance Urine pH Ur Specific [place] Urine Protein Urine Glucose (UA) Urine Ketones Urine Blood Urine Nitrite Urine Bilirubin Urine Urobilinogen Ur Leukocyte Esterase Urine WBC (Auto) Urine RBC (Auto) Urine Bacteria Urine Mucus Random Vancomycin Current Medications Generic Name Dose Route Start Last Admin Trade Name Freq PRN Reason Stop Dose Admin Acetaminophen 1,000 mg 01/07/18 08:18 01/10/18 14:17 Tylenol - PO 1,000 mg Q6H PRN Administration PAIN Albuterol Sulfate 1 amp 01/07/18 08:18 Ventolin 0.083% Nebulizer Soln - NEB Q6H PRN SHORT OF BREATH/WHEEZING Albuterol/Ipratropium 1 amp 01/07/18 14:00 01/11/18 14:10 Duoneb - NEB 1 amp RTID SABINA Administration Budesonide/Formoterol Fumarate 2 puff 01/07/18 10:00 01/11/18 11:12 Symbicort 160/4.5mcg - IH 2 puff BID SABINA Administration Celecoxib 200 mg 01/07/18 10:00 01/10/18 11:10 Celebrex - PO 200 mg BID SABINA Administration Docusate Sodium 100 mg 01/07/18 08:18 Colace - PO BID PRN CONSTIPATION Gabapentin 300 mg 01/07/18 22:00 01/10/18 22:23 Neurontin - PO 300 mg HS SABINA Administration Sodium Chloride 1,000 mls @ 100 mls/hr 01/10/18 17:00 01/11/18 04:31 Normal Saline - IV 100 mls/hr ASDIR SABINA Administration Piperacillin Sod/Tazobactam 100 mls @ 200 mls/hr 01/11/18 11:45 01/11/18 14: 58 Sod 4.5 gm/ Dextrose IVPB 200 mls/hr Q8H-IV SABINA Administration Protocol Vancomycin HCl 1,250 mg/ 250 mls @ 250 mls/2 hr 01/11/18 13:14 Dextrose IVPB BID@0000,1200 SABINA Protocol Ibuprofen 600 mg 01/10/18 16:45 01/10/18 22:22 Motrin - PO 600 mg Q6H PRN Administration FEVER Ondansetron HCl 4 mg 01/07/18 08:18 Zofran Injection IVPUSH Q6H PRN NAUSEA AND/OR VOMITING Oxycodone HCl 10 mg 01/09/18 08:16 Roxicodone - PO Q4H PRN PAIN LEVEL 6-10 Oxycodone HCl 5 mg 01/09/18 08:16 01/10/18 18:11 Roxicodone - PO 5 mg Q4H PRN Administration PAIN LEVEL 1-5 Pantoprazole Sodium 40 mg 01/07/18 10:00 01/11/18 11:11 Protonix - PO 40 mg DAILY SABINA Administration Polyethylene Glycol 17 gm 01/07/18 10:00 01/11/18 13:53 Miralax (For Daily Use) - PO 17 gm DAILY SABINA Administration Prednisone 5 mg 01/07/18 10:00 01/11/18 13:51 Deltasone - PO 5 mg DAILY SABINA Administration Senna 1 tab 01/07/18 22:00 01/10/18 22:25 Senna - PO Not Given HS SBAINA Trazodone HCl 150 mg 01/07/18 22:00 01/10/18 22:31 Desyrel - PO Not Given HS SABINA ASSESSMENT AND PLAN: This is an 82 year old man a history of COPD, chronic urinary retention, lumbar compression fractures with spinal stenosis who was admitted for lumbar spine surgery. 1. Lumbar spinal stenosis, lumbar compression fractures, lumbar kyphosis - s/p T12-L4 laminectomies, T9-pelvis posterior instrumentation, T9-S1 posterolateral arthrodesis 01/03 - Pain control - Incentive spirometer - Ambulation - Continue physical therapy 2. Sepsis secondary to UTI, possible pneumonia - Zosyn, Vancomycin started - Urine, wound, blood cultures pending 3. Acute exacerbation of COPD - Improved - Continue Prednisone, Symbicort, DuoNeb, oxygen - Patient is steroid-dependent at home 4. Chronic hypoxic respiratory failure - Oxygen to maintain saturation >90% 5. Anemia - Likely acute blood loss on chronic anemia - Transfusion held secondary to fever - Hemoglobin is stable 6. Chronic urinary retention - Continue catheterization (does self-catheterization at home) 7. Constipation - Continue Colace, Senna, Miralax 8. Disposition - Plan for subacute rehab
--- NOTE | 2018-01-11 20:03 | CONS ---
DATE OF CONSULTATION: DATE OF DICTATION: 01/11/2018 REQUESTING PHYSICIAN: Hospitalist service. HISTORY: This is an 82-year-old man who was originally admitted January 03 and he underwent T12, L4 laminectomy. He was admitted postoperatively to the ICU and then to the floor. The surgery was on the . I am asked to see him because yesterday he started having fever. I am asked to see him for further evaluation. He has been running fever now since January 10. He is currently awake but confused. He denies any complaints whatsoever. PAST MEDICAL HISTORY: Notable for a history of COPD, chronic urinary retention, aortic aneurysm. He has a history of chronic anemia as well. PAST SURGICAL HISTORY: He has a history as well of a hernia repair in the past. ALLERGIES: He has no known drug allergies. MEDICATIONS: As an outpatient include furosemide, prednisone 5 mg daily, aspirin, Trazodone, omeprazole, Neurontin, Dulera inhaler, vitamin D, DuoNeb. LABORATORY DATA: wbc 9.6, hemoglobin 8.1, platelets 209, INR 1, BUN 21, creatinine 0.8. Urinalysis has 3+ leukocytes with 211 white cells. Cultures are pending of blood and urine. Chest x-ray has a question of a left lower lobe infiltrate. In summary, this is an 82-year-old man postoperative day number 8 status post laminectomy T12-L4 with cough, pyuria, serous drainage from the surgical incision. The patient is confused and combative. I would agree with vancomycin and Zosyn. Would culture the drainage of the back as well. Case is discussed with the resident. Per the nursing staff, he had been on some pain medications that have been adjusted with improvement in his mental status. Further recommendations to follow. ANANT GARCIAS M.D. [id number] MTDAnnalee
[2018-01-11] MEDS: SENNOSIDES 8.6MG TABLET (FP) PO SCH (21:40)
[2018-01-11] MEDS: GABAPENTIN 300 MG CAPSULE (FP) PO SCH (21:40)
[2018-01-11] MEDS: traZODone HCL 50 MG TABLET (FP) PO SCH (21:41)
[2018-01-12] MEDS: VANCOMYCIN 1,250 MG in DEXTROSE 5%-WATER - 250 ML IVPB SCH ×2 (00:14→12:10)
[2018-01-12] MEDS ORDERED: DEXTROSE 5%-WATER 100 ML IVPB ONE ×4 (00:17→23:03)
[2018-01-12] MEDS ORDERED: PIPERACILLIN/TAZOBACTAM 4.5 GM VIAL IVPB ONE ×4 (00:17→23:03)
[2018-01-12] MEDS: PIPERACILLIN/TAZOB 4.5 GM 4.5 GM in DEXTROSE 5%-WATER 100 ML IVPB SCH ×3 (01:35→17:52)
[2018-01-12] MEDS: SODIUM CHLORIDE 1,000 ML IV SCH ×2 (05:14→17:56)
[2018-01-12] MEDS: ALBUTEROL SO4 2.5/IPRATROPIUM 0.5 INH SOL 3 ML VIAL.NEB. NEB SCH ×3 (07:45→20:08)
[2018-01-12 07:54] LABS: BASO % 0.5 % (0-2.0); EOS % 1.4 % (0-4.5); HEMATOCRIT 24.8 % (35.4-49); LYMPH % 6.6 % (8-40); MCH 27.7 pg (25.7-33.7); MCHC 32.1 g/dl (32.0-35.9); MEAN CELL VOLUME 86.3 fl (80-96); MEAN PLT VOLUME 7.7 fl (7.5-11.1); MONO % 4.4 % (3.8-10.2); NEUT % 87.1 % (42.8-82.8); PLATELET COUNT 217 K/MM3 (134-434); RBC 2.88 M/mm3 (4.00-5.60); RDW 13.5 % (11.9-15.9); WHITE BLOOD COUNT 12.4 K/mm3 (4.0-10.0)
[2018-01-12 09:29] LABS: ALBUMIN 1.9 g/dl (3.4-5.0); ANION GAP 10 MMOL/L (8-16); BILIRUBIN,TOTAL 0.5 mg/dL (0.2-1.0); BLOOD UREA NITROGEN 20 mg/dL (7-18); CALCIUM 8.3 mg/dL (8.5-10.1); CHLORIDE 101 mmol/L (98-107); CO2 24 mmol/L (21-32); CREATININE 0.8 mg/dL (0.7-1.3); GLUCOSE,RANDOM 86 mg/dL (74-106); POTASSIUM 4.2 mmol/L (3.5-5.1); SGOT/AST 81 U/L (15-37); SGPT/ALT 78 U/L (13-61); SODIUM 135 mmol/L (136-145); TOT PROT 5.1 g/dl (6.4-8.2)
[2018-01-12 09:30] LABS: ALK PHOS 184 U/L (45-117); PHOSPHOROUS 3.2 mg/dL (2.5-4.9)
--- NOTE | 2018-01-12 09:33 | PN ---
Physical Exam: SUBJECTIVE: Patient seen and examined at bedside had 35 minute conversation with daughter Florinda last night over the phone around 545pm. All questions answered and updates given. Spoke with daughter martin this AM. All questions answered and updates given. OBJECTIVE: Vital Signs Period Temp Pulse Resp BP Sys/Hyman Pulse Ox Last 24 Hr 98.8 F-102.4 F 76-110 18-20 115-129/52-66 95 GENERAL: HEAD: Normal with no signs of trauma. EYES: PERRL, extraocular movements intact ENT: Moist mucous membranes. NECK: Trachea midline, full range of motion, supple. LUNGS: Bilateral Rhonchi. scattered wheezing. able to speak in full sentences. HEART: Regular rate and rhythm, S1, S2 ABDOMEN: Soft, nontender, nondistended, normoactive bowel sounds, no guarding. Ventral hernia : holder in place with yellow cloudy urine and urine sediment EXTREMITIES: well-perfused, no edema. NEUROLOGICAL: Cranial nerves II through XII grossly intact. Normal speech. sensation intact in all extremities. strength 4/5 in bilateral lower extremities. Strength 5/5 in upper extremities. PSYCH: Normal mood, normal affect. SKIN: Hot, dry, normal turgor. Laboratory Results - last 24 hr 01/12/18 06:20 WBC 12.4 H RBC 2.88 L Hgb 8.0 L Hct 24.8 L MCV 86.3 MCH 27.7 MCHC 32.1 RDW 13.5 Plt Count 217 MPV 7.7 Absolute Neuts (auto) 10.8 H Neutrophils % 87.1 H D Lymphocytes % 6.6 L D Monocytes % 4.4 D Eosinophils % 1.4 Basophils % 0.5 Nucleated RBC % 0 Active Medications Generic Name Dose Route Start Last Admin Trade Name Freq PRN Reason Stop Dose Admin Acetaminophen 1,000 mg 01/07/18 08:18 01/10/18 14:17 Tylenol - PO 1,000 mg Q6H PRN Administration PAIN Albuterol Sulfate 1 amp 01/07/18 08:18 Ventolin 0.083% Nebulizer Soln - NEB Q6H PRN SHORT OF BREATH/WHEEZING Albuterol/Ipratropium 1 amp 01/07/18 14:00 01/12/18 07:45 Duoneb - NEB 1 amp RTID SABINA Administration Budesonide/Formoterol Fumarate 2 puff 01/07/18 10:00 01/11/18 22:04 Symbicort 160/4.5mcg - IH Not Given BID SABINA Celecoxib 200 mg 01/07/18 10:00 01/10/18 11:10 Celebrex - PO 200 mg BID SABINA Administration Docusate Sodium 100 mg 01/07/18 08:18 Colace - PO BID PRN CONSTIPATION Gabapentin 300 mg 01/07/18 22:00 01/11/18 21:40 Neurontin - PO 300 mg HS SABINA Administration Sodium Chloride 1,000 mls @ 100 mls/hr 01/10/18 17:00 01/12/18 05:14 Normal Saline - IV 100 mls/hr ASDIR SABINA Administration Piperacillin Sod/Tazobactam 100 mls @ 200 mls/hr 01/11/18 11:45 01/12/18 01: 35 Sod 4.5 gm/ Dextrose IVPB 200 mls/hr Q8H-IV SABINA Administration Protocol Vancomycin HCl 1,250 mg/ 250 mls @ 250 mls/2 hr 01/11/18 13:14 01/12/18 00:14 Dextrose IVPB 250 mls/2 hr BID@0000,1200 SABINA Administration Protocol Ibuprofen 600 mg 01/10/18 16:45 01/10/18 22:22 Motrin - PO 600 mg Q6H PRN Administration FEVER Ondansetron HCl 4 mg 01/07/18 08:18 Zofran Injection IVPUSH Q6H PRN NAUSEA AND/OR VOMITING Oxycodone HCl 10 mg 01/09/18 08:16 Roxicodone - PO Q4H PRN PAIN LEVEL 6-10 Oxycodone HCl 5 mg 01/09/18 08:16 01/10/18 18:11 Roxicodone - PO 5 mg Q4H PRN Administration PAIN LEVEL 1-5 Pantoprazole Sodium 40 mg 01/07/18 10:00 01/11/18 11:11 Protonix - PO 40 mg DAILY SABINA Administration Polyethylene Glycol 17 gm 01/07/18 10:00 01/11/18 13:53 Miralax (For Daily Use) - PO 17 gm DAILY SABINA Administration Prednisone 5 mg 01/07/18 10:00 01/11/18 13:51 Deltasone - PO 5 mg DAILY SABINA Administration Senna 1 tab 01/07/18 22:00 09/12/18 21:40 Senna - PO 1 tab HS SABINA Administration Trazodone HCl 150 mg 01/07/18 22:00 01/11/18 21:41 Desyrel - PO 150 mg HS SABINA Administration ASSESSMENT/PLAN: 82 year old male with a hx of COPD, chronic urinary retention, spinal stenosis, and multiple falls is post op day #9 s/p T12-L4 laminectomies, T9-pelvis posterior instrumentation, T9-S1 creative project manager-lateral arthrodesis, Autograft, Allograft, and Bone marrow aspirate. Sepsis/Low grade fever: secondary to UTI and hospital acquired pneumonia patient spiked fever yesterday and he was pancultured and had CXR done which showed LLL pneumonia. Blood culture-one anaerobic bottle is growing gram positive cocci in clusters- Will follow up on final speciation and sensitivities. Could be contaminant Concern with bacteremia as patient has hardware in his spine. UA also showed 3+ LE and >200 WBCs Patient had holder inserted overnight as nurse could not get the straight cath so resident put holder in. Urine drainage is cloudy with urine sediment. continue vanco/zosyn yesterday for hospital acquired pneumonia and will also cover UTI. Vancomycin trough 1/2 hour before 4th dose-will draw at 2330 as dose is due at midnight continue tylenol/advil for fever hold celebrex for now as this is also an NSAID Fever curve trending down Lower back pain: L1, L3 compression fractures, Kyphosis, Spinal stenosis, Segmental instability, Progressive neurological decline POD #9 s/p T12-L4 laminectomies, T9-pelvis posterior instrumentation, T9-S1 creative project manager-lateral arthrodesis, Autograft, Allograft, and Bone marrow aspirate. Patient tolerated the procedure well Patient has not used Oxycodone since 01/10. Per family patient has AMS when takes trazodone and oxycodone together PT consult appreciated Incentive spirometry COPD not in exacerbation: Continue Duonebs Scheduled albuterol Nebs PRN Chest PT BID continue prednisone 5mg po daily patient on Dulera at home on symbicort here O2 PRN and while sleeping Chronic Urinary Retention holder in for now To continue self catheterizing at home Transaminitis: AST/ALT and Alk-P elevated could be due to Zosyn use Will get RUQ US to r/o any liver or gall bladder pathology-T Bili WNL Chronic constipation: miralax acute on chronic Anemia. blood loss 700ml in OR Hb 8.0 this AM has stabilized will hold off on transfusing If drops any further will transfuse FEN NS @ 100ml/hr No electrolyte issues Regular diet Prophylaxis SCDs-No chemical PPx per spine surgery Protonix for GERD PT consult Case discussed with Dr. Woo Visit type - Emergency Visit Emergency Visit: Yes ED Registration Date: 01/03/18 Care time: The patient presented to the Emergency Department on the above date and was hospitalized for further evaluation of their emergent condition. - New Patient This patient is new to me today: No - Critical Care Critical Care patient: No - Discharge Referral Referred to [facility] No
[2018-01-12] MEDS: BUDESONIDE/FORMETEROL FUMARATE 160/4.5 mcg INHALER IH SCH ×2 (10:03→21:12)
[2018-01-12] MEDS: PANTOPRAZOLE 40 MG TABLET (FP) PO SCH (10:04)
[2018-01-12] MEDS: ACETAMINOPHEN 500 MG TABLET (FP) PO PRN ×2 (10:04→20:45)
[2018-01-12] MEDS: predniSONE 5 MG TABLET (UD) PO SCH (10:04)
[2018-01-12] MEDS: POLYETHYLENE GLYCOL 3350 119 GM BTL PO SCH (10:12)
--- NOTE | 2018-01-12 12:36 | PN ---
Progress Note (short form) - Note Progress Note: PULMONARY Somnolent but arousable. Fevers overnight. Vital Signs Period Temp Pulse Resp BP Sys/Hyman Pulse Ox Last 24 Hr 98.8 F-102.4 F 76-110 18-20 115-129/52-66 95 Gen: NAD at rest Heart: RRR Lung: scattered rhonchi Abd: soft, nontender Ext: no edema CBC, BMP 01/12/18 06:20 01/12/18 06:20 Active Medications Acetaminophen (Tylenol -) 1,000 mg PO Q6H PRN PRN Reason: PAIN Last Admin: 01/12/18 10:04 Dose: 1,000 mg Albuterol Sulfate (Ventolin 0.083% Nebulizer Soln -) 1 amp NEB Q6H PRN PRN Reason: SHORT OF BREATH/WHEEZING Albuterol/Ipratropium (Duoneb -) 1 amp NEB RTID SABINA Last Admin: 01/12/18 07:45 Dose: 1 amp Budesonide/Formoterol Fumarate (Symbicort 160/4.5mcg -) 2 puff IH BID SABINA Last Admin: 01/12/18 10:03 Dose: 2 puff Celecoxib (Celebrex -) 200 mg PO BID SABINA Last Admin: 01/10/18 11:10 Dose: 200 mg Docusate Sodium (Colace -) 100 mg PO BID PRN PRN Reason: CONSTIPATION Gabapentin (Neurontin -) 300 mg PO HS SABINA Last Admin: 01/11/18 21:40 Dose: 300 mg Sodium Chloride (Normal Saline -) 1,000 mls @ 100 mls/hr IV ASDIR SABINA Last Admin: 01/12/18 05:14 Dose: 100 mls/hr Piperacillin Sod/Tazobactam (Sod 4.5 gm/ Dextrose) 100 mls @ 200 mls/hr IVPB Q8H-IV SABINA; Protocol Last Admin: 01/12/18 10:05 Dose: 200 mls/hr Vancomycin HCl 1,250 mg/ (Dextrose) 250 mls @ 250 mls/2 hr IVPB BID@0000,1200 SABINA; Protocol Last Admin: 01/12/18 12:10 Dose: 250 mls/2 hr Ibuprofen (Motrin -) 600 mg PO Q6H PRN PRN Reason: FEVER Last Admin: 01/10/18 22:22 Dose: 600 mg Ondansetron HCl (Zofran Injection) 4 mg IVPUSH Q6H PRN PRN Reason: NAUSEA AND/OR VOMITING Oxycodone HCl (Roxicodone -) 10 mg PO Q4H PRN PRN Reason: PAIN LEVEL 6-10 Oxycodone HCl (Roxicodone -) 5 mg PO Q4H PRN PRN Reason: PAIN LEVEL 1-5 Last Admin: 01/10/18 18:11 Dose: 5 mg Pantoprazole Sodium (Protonix -) 40 mg PO DAILY [facility] Last Admin: 01/12/18 10:04 Dose: 40 mg Polyethylene Glycol (Miralax (For Daily Use) -) 17 gm PO DAILY [facility] Last Admin: 01/12/18 10:12 Dose: 17 gm Prednisone (Deltasone -) 5 mg PO DAILY [facility] Last Admin: 01/12/18 10:04 Dose: 5 mg Senna (Senna -) 1 tab PO [facility] Last Admin: 01/11/18 21:40 Dose: 1 tab Trazodone HCl (Desyrel -) 150 mg PO [facility] Last Admin: 01/11/18 21:41 Dose: 150 mg A/P Lumbar Compression Fractures s/p T12-L4 Laminectomies/T9-pelvis instrumentation/T9-S1 posterior lateral arthrodesis Acute COPD Exacerbation improved Chronic Hypoxic Respiratory Failure Pneumonia - continue antibiotics - inhaled bronchodilators standing and PRN - pain control - incentive spirometry - O2 to keep SpO2 >90% - PO as tolerated - rehab/PT - DVT prophylaxis
--- NOTE | 2018-01-12 15:22 | PN ---
Progress Note (short form) - Note Progress Note: fevers trending down still somewhat confused per daughter, he redognizes her better then yesterday nurse reports serosanguinous drainage from wound, no erythema, no purulence holder placed overnight Vital Signs Period Temp Pulse Resp BP Sys/Hyman Pulse Ox Last 24 Hr 99.2 F-102.4 F 76-110 18-20 115-129/52-56 95 cor-rrr lungs clear abd soft,nt ext no edema holder with cloudy urine CBC, BMP 01/12/18 06:20 01/12/18 06:20 Microbiology 01/10/18 18:00 Blood - Peripheral Venous Blood Culture - Preliminary Staphylococcus Coagulase Neg 01/10/18 15:00 Urine - Urine - Catheterized Urine Culture - Preliminary Lactose Fermenting Neg Bacilli 01/10/18 19:00 Blood - Peripheral Venous Blood Culture - Preliminary NO GROWTH OBTAINED AFTER 24 HOURS, INCUBATION TO CONTINUE FOR 4 DAYS. POD #9 s/p laminectomyyyy T12 to L4 UTI ?HAP agree with vanco/zosyn f/u cultures vancomycin trough d/w Resident Problem List - Problems (1) Fever Code(s): R50.9 - FEVER, UNSPECIFIED (2) Status post laminectomy Code(s): Z98.890 - OTHER SPECIFIED POSTPROCEDURAL STATES
--- NOTE | 2018-01-12 15:31 | PN ---
Teaching Attending Note Name of Resident: Nahid Mata ATTENDING PHYSICIAN STATEMENT I saw and evaluated the patient. I reviewed the resident's note and discussed the case with the resident. I agree with the resident's findings and plan as documented. SUBJECTIVE: Patient remains confused. Had temp 100.4 this morning. OBJECTIVE: Vital Signs Period Temp Pulse Resp BP Sys/Hyman Pulse Ox Last 24 Hr 99.2 F-102.4 F 76-110 18-20 115-129/52-56 95 HEART: S1S2, RRR LUNGS: Bilateral rhonchi ABDOMEN: Soft, non-tender, non-distended, normal BS EXTREMITIES: No edema Laboratory Results - last 24 hr 01/12/18 01/12/18 06:20 06:20 WBC 12.4 H RBC 2.88 L Hgb 8.0 L Hct 24.8 L MCV 86.3 MCH 27.7 MCHC 32.1 RDW 13.5 Plt Count 217 MPV 7.7 Absolute Neuts (auto) 10.8 H Neutrophils % 87.1 H D Lymphocytes % 6.6 L D Monocytes % 4.4 D Eosinophils % 1.4 Basophils % 0.5 Nucleated RBC % 0 Sodium 135 L Potassium 4.2 Chloride 101 Carbon Dioxide 24 Anion Gap 10 BUN 20 H Creatinine 0.8 Creat Clearance w eGFR > 60 Random Glucose 86 Calcium 8.3 L Phosphorus 3.2 Magnesium 2.0 Total Bilirubin 0.5 AST 81 H ALT 78 H Alkaline Phosphatase 184 H D Total Protein 5.1 L Albumin 1.9 L Current Medications Generic Name Dose Route Start Last Admin Trade Name Freq PRN Reason Stop Dose Admin Acetaminophen 1,000 mg 01/07/18 08:18 01/12/18 10:04 Tylenol - PO 1,000 mg Q6H PRN Administration PAIN Albuterol Sulfate 1 amp 01/07/18 08:18 Ventolin 0.083% Nebulizer Soln - NEB Q6H PRN SHORT OF BREATH/WHEEZING Albuterol/Ipratropium 1 amp 01/07/18 14:00 01/12/18 13:53 Duoneb - NEB Not Given RTID SABINA Budesonide/Formoterol Fumarate 2 puff 01/07/18 10:00 01/12/18 10:03 Symbicort 160/4.5mcg - IH 2 puff BID SABINA Administration Celecoxib 200 mg 01/07/18 10:00 01/10/18 11:10 Celebrex - PO 200 mg BID SABINA Administration Docusate Sodium 100 mg 01/07/18 08:18 Colace - PO BID PRN CONSTIPATION Gabapentin 300 mg 01/07/18 22:00 01/11/18 21:40 Neurontin - PO 300 mg HS SABINA Administration Sodium Chloride 1,000 mls @ 100 mls/hr 01/10/18 17:00 01/12/18 05:14 Normal Saline - IV 100 mls/hr ASDIR SABINA Administration Piperacillin Sod/Tazobactam 100 mls @ 200 mls/hr 01/11/18 11:45 01/12/18 10: 05 Sod 4.5 gm/ Dextrose IVPB 200 mls/hr Q8H-IV SABINA Administration Protocol Vancomycin HCl 1,250 mg/ 250 mls @ 250 mls/2 hr 01/11/18 13:14 01/12/18 12:10 Dextrose IVPB 250 mls/2 hr BID@0000,1200 SABINA Administration Protocol Ibuprofen 600 mg 01/10/18 16:45 01/10/18 22:22 Motrin - PO 600 mg Q6H PRN Administration FEVER Ondansetron HCl 4 mg 01/07/18 08:18 Zofran Injection IVPUSH Q6H PRN NAUSEA AND/OR VOMITING Pantoprazole Sodium 40 mg 01/07/18 10:00 01/12/18 10:04 Protonix - PO 40 mg DAILY SABINA Administration Polyethylene Glycol 17 gm 01/07/18 10:00 01/12/18 10:12 Miralax (For Daily Use) - PO 17 gm DAILY SABINA Administration Prednisone 5 mg 01/07/18 10:00 01/12/18 10:04 Deltasone - PO 5 mg DAILY SABINA Administration Senna 1 tab 01/07/18 22:00 01/11/18 21:40 Senna - PO 1 tab HS SABINA Administration Trazodone HCl 150 mg 01/07/18 22:00 01/11/18 21:41 Desyrel - PO 150 mg HS SABINA Administration ASSESSMENT AND PLAN: This is an 82 year old man a history of COPD, chronic urinary retention, lumbar compression fractures with spinal stenosis who was admitted for lumbar spine surgery. 1. Lumbar spinal stenosis, lumbar compression fractures, lumbar kyphosis - s/p T12-L4 laminectomies, T9-pelvis posterior instrumentation, T9-S1 posterolateral arthrodesis 01/03 - Pain control - Incentive spirometer - Ambulation - Continue physical therapy 2. Sepsis secondary to UTI, possible pneumonia - Continue Zosyn, Vancomycin - Urine culture growing gram neg rods - Blood culture growing coagulase neg Staph 3. Acute exacerbation of COPD - Improved - Continue Prednisone, Symbicort, DuoNeb, oxygen - Patient is steroid-dependent at home 4. Chronic hypoxic respiratory failure - Oxygen to maintain saturation >90% 5. Anemia - Likely acute blood loss on chronic anemia - Transfusion held secondary to fever - Hemoglobin is stable 6. Chronic urinary retention - Patient does self-catheterization at home 7. Constipation - Continue Colace, Senna, Miralax 8. Disposition - Plan for subacute rehab
[2018-01-12] MEDS: GABAPENTIN 300 MG CAPSULE (FP) PO SCH (21:02)
[2018-01-12] MEDS: traZODone HCL 50 MG TABLET (FP) PO SCH (21:02)
[2018-01-12] MEDS: SENNOSIDES 8.6MG TABLET (FP) PO SCH (21:02)
[2018-01-12] MEDS: IBUPROFEN 600 MG TABLET (FP) PO PRN (23:26)
[2018-01-13] MEDS: VANCOMYCIN 1,250 MG in DEXTROSE 5%-WATER - 250 ML IVPB SCH ×3 (00:19→13:58)
[2018-01-13] MEDS: PIPERACILLIN/TAZOB 4.5 GM 4.5 GM in DEXTROSE 5%-WATER 100 ML IVPB SCH ×4 (01:16→17:07)
--- NOTE | 2018-01-13 07:31 | PN ---
Physical Exam: SUBJECTIVE: Patient seen and examined at bedside still spiking fevers fevers seem to be cyclical as he has been spiking at the same time at night for the past 3 days Changed dressing with nurse yesterday the wound had no drainage when exposed. Multiple attempts at trying to express fluid were unsuccessful. There was no erythema fluctuance or induration Of note the vancomycin trough done last night was not a trough. Nurse did not realize lab was to be drawn until after vancomycin given. Lab drawn immediately after vancomycin infusion Hb 7.2 OBJECTIVE: Vital Signs Period Temp Pulse Resp BP Sys/Hyman Pulse Ox Last 24 Hr 98.4 F-102.8 F 71-99 18-20 103-118/42-56 94-96 GENERAL:Alert and awake and orientated to person place and self HEAD: Normal with no signs of trauma. EYES: PERRL, extraocular movements intact ENT: Moist mucous membranes. NECK: Trachea midline, full range of motion, supple. LUNGS: Bilateral Rhonchi. scattered wheezing. able to speak in full sentences. HEART: Regular rate and rhythm, S1, S2 ABDOMEN: Soft, nontender, nondistended, normoactive bowel sounds, no guarding. Ventral hernia : holder in place with yellow cloudy urine and urine sediment EXTREMITIES: well-perfused, no edema. NEUROLOGICAL: Cranial nerves II through XII grossly intact. Normal speech. sensation intact in all extremities. strength 4/5 in bilateral lower extremities. Strength 5/5 in upper extremities. PSYCH: Normal mood, normal affect. SKIN: Hot, dry, normal turgor. Incision is clean with no erythema. minimal to no serous drainage when the wound is exposed and attempted to express. no induration or fluctuance appreciated Laboratory Results - last 24 hr 01/12/18 01/12/18 01/12/18 06:20 06:20 23:40 WBC 12.4 H RBC 2.88 L Hgb 8.0 L Hct 24.8 L MCV 86.3 MCH 27.7 MCHC 32.1 RDW 13.5 Plt Count 217 MPV 7.7 Absolute Neuts (auto) 10.8 H Neutrophils % 87.1 H D Lymphocytes % 6.6 L D Monocytes % 4.4 D Eosinophils % 1.4 Basophils % 0.5 Nucleated RBC % 0 Sodium 135 L Potassium 4.2 Chloride 101 Carbon Dioxide 24 Anion Gap 10 BUN 20 H Creatinine 0.8 Creat Clearance w eGFR > 60 Random Glucose 86 Calcium 8.3 L Phosphorus 3.2 Magnesium 2.0 Total Bilirubin 0.5 AST 81 H ALT 78 H Alkaline Phosphatase 184 H D Total Protein 5.1 L Albumin 1.9 L Vancomycin Pre-Dose 31.48 H* Active Medications Generic Name Dose Route Start Last Admin Trade Name Freq PRN Reason Stop Dose Admin Acetaminophen 1,000 mg 01/07/18 08:18 01/12/18 20:45 Tylenol - PO 1,000 mg Q6H PRN Administration PAIN Albuterol Sulfate 1 amp 01/07/18 08:18 Ventolin 0.083% Nebulizer Soln - NEB Q6H PRN SHORT OF BREATH/WHEEZING Albuterol/Ipratropium 1 amp 01/07/18 14:00 01/12/18 20:08 Duoneb - NEB 1 amp RTID SABINA Administration Budesonide/Formoterol Fumarate 2 puff 01/07/18 10:00 01/12/18 21:12 Symbicort 160/4.5mcg - IH 2 puff BID SABINA Administration Celecoxib 200 mg 01/07/18 10:00 01/10/18 11:10 Celebrex - PO 200 mg BID SABINA Administration Docusate Sodium 100 mg 01/07/18 08:18 Colace - PO BID PRN CONSTIPATION Gabapentin 300 mg 01/07/18 22:00 01/12/18 21:02 Neurontin - PO 300 mg HS SABINA Administration Sodium Chloride 1,000 mls @ 100 mls/hr 01/10/18 17:00 01/12/18 17:56 Normal Saline - IV 100 mls/hr ASDIR SABINA Administration Piperacillin Sod/Tazobactam 100 mls @ 200 mls/hr 01/11/18 11:45 01/13/18 01: 16 Sod 4.5 gm/ Dextrose IVPB 200 mls/hr Q8H-IV SABINA Administration Protocol Vancomycin HCl 1,250 mg/ 250 mls @ 250 mls/2 hr 01/11/18 13:14 01/13/18 00:19 Dextrose IVPB 250 mls/2 hr BID@0000,1200 SABINA Administration Protocol Ibuprofen 600 mg 01/10/18 16:45 01/12/18 23:26 Motrin - PO 600 mg Q6H PRN Administration FEVER Ondansetron HCl 4 mg 01/07/18 08:18 Zofran Injection IVPUSH Q6H PRN NAUSEA AND/OR VOMITING Pantoprazole Sodium 40 mg 01/07/18 10:00 01/12/18 10:04 Protonix - PO 40 mg DAILY SABINA Administration Polyethylene Glycol 17 gm 01/07/18 10:00 01/12/18 10:12 Miralax (For Daily Use) - PO 17 gm DAILY SABINA Administration Prednisone 5 mg 01/07/18 10:00 01/12/18 10:04 Deltasone - PO 5 mg DAILY SABINA Administration Senna 1 tab 01/07/18 22:00 01/12/18 21:02 Senna - PO 1 tab HS SABINA Administration Trazodone HCl 150 mg 01/07/18 22:00 01/12/18 21:02 Desyrel - PO 150 mg HS SABINA Administration ASSESSMENT/PLAN: 82 year old male with a hx of COPD, chronic urinary retention, spinal stenosis, and multiple falls is post op day #10 s/p T12-L4 laminectomies, T9-pelvis posterior instrumentation, T9-S1 seed corn manager production-lateral arthrodesis, Autograft, Allograft, and Bone marrow aspirate. Sepsis/Low grade fever: secondary to UTI and hospital acquired pneumonia. Possible patient also has a bacteremia Blood culture-one anaerobic bottle is growing gram positive cocci in clusters Cag negative. An aerobic bottle is now growing gram positive cocci in clusters- Will follow up on final speciation and sensitivities. Could be contaminant from poor skin prep Concern with bacteremia as patient has hardware in his spine. ID consult much appreciated UA also showed 3+ LE and >200 WBCs Urine culture growing gram negative bacili continue vanco/zosyn for now as this should cover all sources of infection Vancomycin trough 1/2 hour before dose-will draw at 1130 as dose is due at noon. Vanco trough done last night was after the infusion so was not an accurate level. continue tylenol/advil for fever hold celebrex for now as this is also an NSAID Leukocytosis improving WBC 10.2 today down from 12.4 yesterday Lower back pain: L1, L3 compression fractures, Kyphosis, Spinal stenosis, Segmental instability, Progressive neurological decline POD #10 s/p T12-L4 laminectomies, T9-pelvis posterior instrumentation, T9-S1 seed corn manager production-lateral arthrodesis, Autograft, Allograft, and Bone marrow aspirate. Patient tolerated the procedure well Pain is well controlled at this time Patient has not used Oxycodone since 01/10. Per family patient has AMS when takes trazodone and oxycodone together PT consult appreciated-was not able to participate due to altered mental status and being slightly combative yesterday will try again today Incentive spirometry COPD not in exacerbation: Continue Duonebs Scheduled albuterol Nebs PRN Chest PT BID continue prednisone 5mg po daily patient on Dulera at home on symbicort here O2 PRN and while sleeping Chronic Urinary Retention holder in for now To continue self catheterizing at home Transaminitis: AST/ALT and Alk-P elevated could be due to Zosyn use Will get RUQ US to r/o any liver or gall bladder pathology-T Bili WNL-US pending Chronic constipation: miralax acute on chronic Anemia. blood loss 700ml in OR Hb 7.2 this AM has stabilized will transfuse 1 unit PRBC If drops any further will transfuse FEN decrease NS to 50ml/hr No electrolyte issues Regular diet Prophylaxis SCDs-No chemical PPx per spine surgery Protonix for GERD PT consult Case discussed with Dr. Woo Visit type - Emergency Visit Emergency Visit: Yes ED Registration Date: 01/03/18 Care time: The patient presented to the Emergency Department on the above date and was hospitalized for further evaluation of their emergent condition. - New Patient This patient is new to me today: No - Critical Care Critical Care patient: No
[2018-01-13] MEDS: ALBUTEROL SO4 2.5/IPRATROPIUM 0.5 INH SOL 3 ML VIAL.NEB. NEB SCH ×3 (07:40→20:37)
[2018-01-13 08:35] LABS: BASO % 0.2 % (0-2.0); EOS % 1.7 % (0-4.5); HEMOGLOBIN 7.2 GM/dL (11.7-16.9); LYMPH % 9.8 % (8-40); MCH 28.2 pg (25.7-33.7); MCHC 32.8 g/dl (32.0-35.9); MEAN CELL VOLUME 85.9 fl (80-96); MEAN PLT VOLUME 7.5 fl (7.5-11.1); MONO % 5.3 % (3.8-10.2); PLATELET COUNT 228 K/MM3 (134-434); RBC 2.57 M/mm3 (4.00-5.60); RDW 13.9 % (11.9-15.9); WHITE BLOOD COUNT 10.2 K/mm3 (4.0-10.0)
[2018-01-13 09:17] LABS: ALBUMIN 1.7 g/dl (3.4-5.0); BLOOD UREA NITROGEN 22 mg/dL (7-18); CALCIUM 8.2 mg/dL (8.5-10.1); CO2 26 mmol/L (21-32); GLUCOSE,RANDOM 87 mg/dL (74-106); MAGNESIUM 2.1 mg/dL (1.8-2.4); PHOSPHOROUS 3.4 mg/dL (2.5-4.9); SGOT/AST 84 U/L (15-37)
[2018-01-13 10:19] LABS: ALK PHOS 144 U/L (45-117); ANION GAP 8 MMOL/L (8-16); BILIRUBIN,TOTAL 0.4 mg/dL (0.2-1.0); CHLORIDE 103 mmol/L (98-107); SGPT/ALT 86 U/L (13-61); SODIUM 137 mmol/L (136-145); TOT PROT 4.8 g/dl (6.4-8.2)
--- NOTE | 2018-01-13 10:35 | PN ---
Progress Note (short form) - Note Progress Note: continued intermittent fevers more alert today Vital Signs Period Temp Pulse Resp BP Sys/Hyman Pulse Ox Last 24 Hr 98.4 F-102.8 F 71-99 18-20 111-118/42-56 96 cor-rrr lungs decreased bs at bases abd soft,nt ext no edema +holder will return to see back incision CBC, BMP 01/13/18 08:00 01/13/18 08:00 Microbiology 01/10/18 19:00 Blood - Peripheral Venous Blood Culture - Preliminary Pending Organism 01/10/18 18:00 Blood - Peripheral Venous Blood Culture - Preliminary Staphylococcus Coagulase Neg 01/10/18 15:00 Urine - Urine - Catheterized Urine Culture - Preliminary Lactose Fermenting Neg Bacilli a/p pod #10 bacteremia- ?significance, cultures repeated s/p laminectomyyyy T12 to L4 UTI ?HAP agree with vanco/zosyn f/u cultures vancomycin trough repeat today Problem List - Problems (1) Fever Code(s): R50.9 - FEVER, UNSPECIFIED (2) Status post laminectomy Code(s): Z98.890 - OTHER SPECIFIED POSTPROCEDURAL STATES
[2018-01-13] MEDS: ACETAMINOPHEN 500 MG TABLET (FP) PO PRN (10:48)
[2018-01-13] MEDS: predniSONE 5 MG TABLET (UD) PO SCH (10:48)
[2018-01-13] MEDS: PANTOPRAZOLE 40 MG TABLET (FP) PO SCH (10:49)
[2018-01-13] MEDS: POLYETHYLENE GLYCOL 3350 119 GM BTL PO SCH (10:49)
[2018-01-13] MEDS: BUDESONIDE/FORMETEROL FUMARATE 160/4.5 mcg INHALER IH SCH ×2 (10:50→21:53)
[2018-01-13] MEDS: SODIUM CHLORIDE 1,000 ML IV SCH (10:50)
--- NOTE | 2018-01-13 12:16 | PN ---
Teaching Attending Note Name of Resident: Nahid Mata ATTENDING PHYSICIAN STATEMENT I saw and evaluated the patient. I reviewed the resident's note and discussed the case with the resident. I agree with the resident's findings and plan as documented. SUBJECTIVE: Patient is awake, alert, and oriented. He has no complaints other than back pain when he moves. Had temp 102.8 overnight. OBJECTIVE: Vital Signs Period Temp Pulse Resp BP Sys/Hyman Pulse Ox Last 24 Hr 98.4 F-102.8 F 71-99 18-20 111-118/42-56 96 HEART: S1S2, RRR LUNGS: Scattered rhonchi. Crackles at left base ABDOMEN: Soft, non-tender, non-distended, normal BS EXTREMITIES: No edema Laboratory Results - last 24 hr 01/10/18 01/12/18 01/13/18 12:18 23:40 08:00 WBC 10.2 H RBC 2.57 L Hgb 7.2 L Hct 22.0 L MCV 85.9 MCH 28.2 MCHC 32.8 RDW 13.9 Plt Count 228 MPV 7.5 Absolute Neuts (auto) 8.4 H Neutrophils % 83.0 H Lymphocytes % 9.8 D Monocytes % 5.3 Eosinophils % 1.7 Basophils % 0.2 Nucleated RBC % 0 Sodium Potassium Chloride Carbon Dioxide Anion Gap BUN Creatinine Creat Clearance w eGFR Random Glucose Calcium Phosphorus Magnesium Total Bilirubin AST ALT Alkaline Phosphatase Total Protein Albumin Vancomycin Pre-Dose 31.48 H* Blood Type A POSITIVE Antibody Screen Negative Crossmatch See Detail 01/13/18 08:00 WBC RBC Hgb Hct MCV MCH MCHC RDW Plt Count MPV Absolute Neuts (auto) Neutrophils % Lymphocytes % Monocytes % Eosinophils % Basophils % Nucleated RBC % Sodium 137 Potassium 4.0 Chloride 103 Carbon Dioxide 26 Anion Gap 8 BUN 22 H Creatinine 1.0 Creat Clearance w eGFR > 60 Random Glucose 87 Calcium 8.2 L Phosphorus 3.4 Magnesium 2.1 Total Bilirubin 0.4 AST 84 H ALT 86 H Alkaline Phosphatase 144 H Total Protein 4.8 L Albumin 1.7 L Vancomycin Pre-Dose Blood Type Antibody Screen Crossmatch Current Medications Generic Name Dose Route Start Last Admin Trade Name Freq PRN Reason Stop Dose Admin Acetaminophen 1,000 mg 01/07/18 08:18 01/13/18 10:48 Tylenol - PO 1,000 mg Q6H PRN Administration PAIN Albuterol Sulfate 1 amp 01/07/18 08:18 Ventolin 0.083% Nebulizer Soln - NEB Q6H PRN SHORT OF BREATH/WHEEZING Albuterol/Ipratropium 1 amp 01/07/18 14:00 01/13/18 07:40 Duoneb - NEB 1 amp RTID SABINA Administration Budesonide/Formoterol Fumarate 2 puff 01/07/18 10:00 01/13/18 10:50 Symbicort 160/4.5mcg - IH 2 puff BID SABINA Administration Celecoxib 200 mg 01/07/18 10:00 01/10/18 11:10 Celebrex - PO 200 mg BID SABINA Administration Docusate Sodium 100 mg 01/07/18 08:18 Colace - PO BID PRN CONSTIPATION Gabapentin 300 mg 01/07/18 22:00 01/12/18 21:02 Neurontin - PO 300 mg HS SABINA Administration Piperacillin Sod/Tazobactam 100 mls @ 200 mls/hr 01/11/18 11:45 01/13/18 10: 49 Sod 4.5 gm/ Dextrose IVPB Not Given Q8H-IV SABINA Protocol Vancomycin HCl 1,250 mg/ 250 mls @ 250 mls/2 hr 01/11/18 13:14 01/13/18 00:19 Dextrose IVPB 250 mls/2 hr BID@0000,1200 SABINA Administration Protocol Sodium Chloride 1,000 mls @ 50 mls/hr 01/13/18 09:30 01/13/18 10:50 Normal Saline - IV 50 mls/hr ASDIR SBAINA Administration Ibuprofen 600 mg 01/10/18 16:45 01/12/18 23:26 Motrin - PO 600 mg Q6H PRN Administration FEVER Ondansetron HCl 4 mg 01/07/18 08:18 Zofran Injection IVPUSH Q6H PRN NAUSEA AND/OR VOMITING Pantoprazole Sodium 40 mg 01/07/18 10:00 01/13/18 10:49 Protonix - PO 40 mg DAILY SABINA Administration Polyethylene Glycol 17 gm 01/07/18 10:00 01/13/18 10:49 Miralax (For Daily Use) - PO 17 gm DAILY SABINA Administration Prednisone 5 mg 01/07/18 10:00 01/13/18 10:48 Deltasone - PO 5 mg DAILY SABINA Administration Senna 1 tab 01/07/18 22:00 01/12/18 21:02 Senna - PO 1 tab HS SABINA Administration Trazodone HCl 150 mg 01/07/18 22:00 01/12/18 21:02 Desyrel - PO 150 mg HS SABINA Administration ASSESSMENT AND PLAN: This is an 82 year old man a history of COPD, chronic urinary retention, lumbar compression fractures with spinal stenosis who was admitted for lumbar spine surgery. 1. Lumbar spinal stenosis, lumbar compression fractures, lumbar kyphosis - s/p T12-L4 laminectomies, T9-pelvis posterior instrumentation, T9-S1 posterolateral arthrodesis 01/03 - Pain control - Incentive spirometer - Ambulation - Continue physical therapy 2. Sepsis secondary to E. coli UTI, pneumonia - Continue Zosyn, Vancomycin - Blood cultures 01/10 growing coagulase neg Staph, 01/12 pending 3. Acute exacerbation of COPD - Improved - Continue Prednisone, Symbicort, DuoNeb, oxygen - Patient is steroid-dependent at home 4. Chronic hypoxic respiratory failure - Oxygen to maintain saturation >90% 5. Anemia - Likely acute blood loss and sepsis on chronic anemia - Hemoglobin 7.2 today - transfuse to keep Hgb >8.0 6. Chronic urinary retention - Patient does self-catheterization at home 7. Constipation - Continue Colace, Senna, Miralax 8. Disposition - Plan for subacute rehab
--- NOTE | 2018-01-13 12:51 | PN ---
Progress Note (short form) - Note Progress Note: PULMONARY Resting comfortably Cough mainly nonproductive Using incentive raphael had temp spike last pm afeb now Gen: NAD at rest Heart: RRR Lung: scattered rhonchi Abd: soft, nontender Ext: no edema labs/meds/notes/images reviewed ASSESSMENT AND PLAN: Lumbar Compression Fractures s/p T12-L4 Laminectomies/T9-pelvis instrumentation/T9-S1 posterior lateral arthrodesis Acute COPD Exacerbation Chronic Hypoxic Respiratory Failure UTI - inhaled bronchodilators standing and PRN - pain control - incentive spirometry - on antibiotics as per ID - O2 to keep SpO2 >90% - PO as tolerated - DVT prophylaxis Stevenson FERRER MD
[2018-01-13] MEDS ORDERED: PIPERACILLIN/TAZOBACTAM 4.5 GM VIAL IVPB ONE (16:54)
[2018-01-13] MEDS ORDERED: DEXTROSE 5%-WATER 100 ML IVPB ONE (16:55)
[2018-01-13] MEDS: traZODone HCL 50 MG TABLET (FP) PO SCH (21:52)
[2018-01-13] MEDS: SENNOSIDES 8.6MG TABLET (FP) PO SCH (21:53)
[2018-01-13] MEDS: GABAPENTIN 300 MG CAPSULE (FP) PO SCH (21:53)
[2018-01-14] MEDS: VANCOMYCIN 1,250 MG in DEXTROSE 5%-WATER - 250 ML IVPB SCH ×3 (00:27→23:03)
[2018-01-14] MEDS ORDERED: PIPERACILLIN/TAZOBACTAM 4.5 GM VIAL IVPB ONE ×3 (02:21→17:46)
[2018-01-14] MEDS ORDERED: DEXTROSE 5%-WATER 100 ML IVPB ONE ×3 (02:22→17:46)
[2018-01-14] MEDS: PIPERACILLIN/TAZOB 4.5 GM 4.5 GM in DEXTROSE 5%-WATER 100 ML IVPB SCH ×3 (02:27→18:06)
[2018-01-14 07:57] LABS: BASO % 0.2 % (0-2.0); EOS % 1.4 % (0-4.5); HEMATOCRIT 23.9 % (35.4-49); LYMPH % 8.7 % (8-40); MCH 28.6 pg (25.7-33.7); MCHC 33.2 g/dl (32.0-35.9); MEAN CELL VOLUME 86.1 fl (80-96); MEAN PLT VOLUME 7.8 fl (7.5-11.1); MONO % 6.2 % (3.8-10.2); NEUT % 83.5 % (42.8-82.8); PLATELET COUNT 259 K/MM3 (134-434); RBC 2.78 M/mm3 (4.00-5.60); RDW 13.9 % (11.9-15.9); WHITE BLOOD COUNT 10.7 K/mm3 (4.0-10.0)
--- NOTE | 2018-01-14 08:06 | PN ---
Progress Note, Physician History of Present Illness: This is an 82 year old man a history of COPD, chronic urinary retention, lumbar compression fractures with spinal stenosis who was admitted for lumbar spine surgery. - Current Medication List Current Medications: Active Medications Acetaminophen (Tylenol -) 1,000 mg PO Q6H PRN PRN Reason: PAIN Last Admin: 01/13/18 10:48 Dose: 1,000 mg Albuterol Sulfate (Ventolin 0.083% Nebulizer Soln -) 1 amp NEB Q6H PRN PRN Reason: SHORT OF BREATH/WHEEZING Albuterol/Ipratropium (Duoneb -) 1 amp NEB RTID SABINA Last Admin: 01/13/18 20:37 Dose: 1 amp Budesonide/Formoterol Fumarate (Symbicort 160/4.5mcg -) 2 puff IH BID [facility] Last Admin: 01/13/18 21:53 Dose: 2 puff Celecoxib (Celebrex -) 200 mg PO BID [facility] Last Admin: 01/10/18 11:10 Dose: 200 mg Docusate Sodium (Colace -) 100 mg PO BID PRN PRN Reason: CONSTIPATION Gabapentin (Neurontin -) 300 mg PO HS [facility] Last Admin: 01/13/18 21:53 Dose: 300 mg Piperacillin Sod/Tazobactam (Sod 4.5 gm/ Dextrose) 100 mls @ 200 mls/hr IVPB Q8H-IV SABINA; Protocol Last Admin: 01/14/18 02:27 Dose: 200 mls/hr Vancomycin HCl 1,250 mg/ (Dextrose) 250 mls @ 250 mls/2 hr IVPB BID@0000,1200 SABINA; Protocol Last Admin: 01/14/18 00:27 Dose: 250 mls/2 hr Sodium Chloride (Normal Saline -) 1,000 mls @ 50 mls/hr IV ASDIR [facility] Last Admin: 01/13/18 10:50 Dose: 50 mls/hr Ibuprofen (Motrin -) 600 mg PO Q6H PRN PRN Reason: FEVER Last Admin: 01/12/18 23:26 Dose: 600 mg Ondansetron HCl (Zofran Injection) 4 mg IVPUSH Q6H PRN PRN Reason: NAUSEA AND/OR VOMITING Pantoprazole Sodium (Protonix -) 40 mg PO DAILY [facility] Last Admin: 09/14/18 10:49 Dose: 40 mg Polyethylene Glycol (Miralax (For Daily Use) -) 17 gm PO DAILY [facility] Last Admin: 01/13/18 10:49 Dose: 17 gm Prednisone (Deltasone -) 5 mg PO DAILY [facility] Last Admin: 01/13/18 10:48 Dose: 5 mg Senna (Senna -) 1 tab PO HS [facility] Last Admin: 01/13/18 21:53 Dose: 1 tab Trazodone HCl (Desyrel -) 150 mg PO [facility] Last Admin: 01/13/18 21:52 Dose: 150 mg - Objective Vital Signs: Vital Signs Temperature 100.7 F H 01/14/18 06:56 Pulse Rate 89 01/14/18 06:56 Respiratory Rate 20 01/14/18 06:56 Blood Pressure 143/64 01/14/18 06:56 O2 Sat by Pulse Oximetry (%) 96 01/13/18 09:00 Problem List - Problems (1) Anemia Assessment/Plan: - Likely acute blood loss and sepsis on chronic anemia - Hemoglobin 7.2 today - transfuse to keep Hgb >8.0 Code(s): D64.9 - ANEMIA, UNSPECIFIED Qualifiers: Anemia type: other cause Other causes of anemia: acute posthemorrhagic Qualified Code(s): D62 - Acute posthemorrhagic anemia (2) S/P spinal fusion Assessment/Plan: - s/p T12-L4 laminectomies, T9-pelvis posterior instrumentation, T9-S1 posterolateral arthrodesis 01/03 - Pain control - Incentive spirometery - Ambulation - Continue physical therapy Code(s): Z98.1 - ARTHRODESIS STATUS (3) COPD (chronic obstructive pulmonary disease) Assessment/Plan: - Improved - Continue Prednisone, Symbicort, DuoNeb, oxygen - Patient is steroid-dependent at home Code(s): J44.9 - CHRONIC OBSTRUCTIVE PULMONARY DISEASE, UNSPECIFIED Qualifiers: COPD type: unspecified COPD Qualified Code(s): J44.9 - Chronic obstructive pulmonary disease, unspecified (4) Spinal stenosis Code(s): M48.00 - SPINAL STENOSIS, SITE UNSPECIFIED Qualifiers: Spinal region: thoracolumbar Qualified Code(s): M48.05 - Spinal stenosis, thoracolumbar region (5) Fever Assessment/Plan: - Continue pipercillin/tazobactam - c/w Vancomycin - Blood cultures 01/10 growing coagulase neg Staph, 01/12 pending Code(s): R50.9 - FEVER, UNSPECIFIED (6) Hypercapnic respiratory failure, chronic Assessment/Plan: - Oxygen to maintain saturation >90% Code(s): J96.12 - CHRONIC RESPIRATORY FAILURE WITH HYPERCAPNIA (7) Urinary retention Assessment/Plan: - Patient does self-catheterization at home Code(s): R33.9 - RETENTION OF URINE, UNSPECIFIED (8) Constipation Assessment/Plan: 7. Constipation - Continue Colace, Senna, Miralax Code(s): K59.00 - CONSTIPATION, UNSPECIFIED Assessment/Plan 5. Anemia 6. Chronic urinary retention - Patient does self-catheterization at home 7. Constipation - Continue Colace, Senna, Miralax 8. Disposition - Plan for subacute rehab
[2018-01-14] MEDS: ALBUTEROL SO4 2.5/IPRATROPIUM 0.5 INH SOL 3 ML VIAL.NEB. NEB SCH ×3 (08:27→20:23)
[2018-01-14 08:32] LABS: ALBUMIN 1.7 g/dl (3.4-5.0); ANION GAP 8 MMOL/L (8-16); BLOOD UREA NITROGEN 17 mg/dL (7-18); CALCIUM 8.1 mg/dL (8.5-10.1); CHLORIDE 103 mmol/L (98-107); CO2 25 mmol/L (21-32); GLUCOSE,RANDOM 92 mg/dL (74-106); MAGNESIUM 1.9 mg/dL (1.8-2.4); POTASSIUM 4.1 mmol/L (3.5-5.1); SODIUM 136 mmol/L (136-145)
[2018-01-14 08:35] LABS: ALK PHOS 130 U/L (45-117); BILIRUBIN,TOTAL 0.4 mg/dL (0.2-1.0); CREATININE 0.8 mg/dL (0.55-1.3); PHOSPHOROUS 3.1 mg/dL (2.5-4.9); SGOT/AST 85 U/L (15-37); SGPT/ALT 98 U/L (13-61); TOT PROT 4.7 g/dl (6.4-8.2)
--- NOTE | 2018-01-14 10:22 | PN ---
Progress Note (short form) - Note Progress Note: Resting in NAD. No acute events overnight. Low grade temps. Intake & Output 01/11/18 01/12/18 01/13/18 01/14/18 23:59 23:59 23:59 23:59 Intake Total 3580 3300 2900 1230 Output Total 3000 3900 2000 1600 Balance 580 -600 900 -370 Last Vital Signs Temp Pulse Resp BP Pulse Ox 100.7 F H 89 20 143/64 96 01/14/18 06:56 01/14/18 06:56 01/14/18 06:56 01/14/18 06:56 01/13/18 09:00 Active Medications Acetaminophen (Tylenol -) 1,000 mg PO Q6H PRN PRN Reason: PAIN Last Admin: 01/13/18 10:48 Dose: 1,000 mg Albuterol Sulfate (Ventolin 0.083% Nebulizer Soln -) 1 amp NEB Q6H PRN PRN Reason: SHORT OF BREATH/WHEEZING Albuterol/Ipratropium (Duoneb -) 1 amp NEB RTID SABINA Last Admin: 01/14/18 08:27 Dose: 1 amp Budesonide/Formoterol Fumarate (Symbicort 160/4.5mcg -) 2 puff IH BID SABINA Last Admin: 01/13/18 21:53 Dose: 2 puff Celecoxib (Celebrex -) 200 mg PO BID SABINA Last Admin: 01/10/18 11:10 Dose: 200 mg Docusate Sodium (Colace -) 100 mg PO BID PRN PRN Reason: CONSTIPATION Gabapentin (Neurontin -) 300 mg PO HS SABINA Last Admin: 01/13/18 21:53 Dose: 300 mg Piperacillin Sod/Tazobactam (Sod 4.5 gm/ Dextrose) 100 mls @ 200 mls/hr IVPB Q8H-IV SABINA; Protocol Last Admin: 01/14/18 02:27 Dose: 200 mls/hr Vancomycin HCl 1,250 mg/ (Dextrose) 250 mls @ 250 mls/2 hr IVPB BID@0000,1200 SABINA; Protocol Last Admin: 01/14/18 00:27 Dose: 250 mls/2 hr Sodium Chloride (Normal Saline -) 1,000 mls @ 50 mls/hr IV ASDIR SABINA Last Admin: 01/13/18 10:50 Dose: 50 mls/hr Ibuprofen (Motrin -) 600 mg PO Q6H PRN PRN Reason: FEVER Last Admin: 01/12/18 23:26 Dose: 600 mg Ondansetron HCl (Zofran Injection) 4 mg IVPUSH Q6H PRN PRN Reason: NAUSEA AND/OR VOMITING Pantoprazole Sodium (Protonix -) 40 mg PO DAILY [facility] Last Admin: 01/13/18 10:49 Dose: 40 mg Polyethylene Glycol (Miralax (For Daily Use) -) 17 gm PO DAILY [facility] Last Admin: 01/13/18 10:49 Dose: 17 gm Prednisone (Deltasone -) 5 mg PO DAILY [facility] Last Admin: 01/13/18 10:48 Dose: 5 mg Senna (Senna -) 1 tab PO [facility] Last Admin: 01/13/18 21:53 Dose: 1 tab Trazodone HCl (Desyrel -) 150 mg PO [facility] Last Admin: 01/13/18 21:52 Dose: 150 mg Gen: NAD at rest Heart: RRR Lung: scattered rhonchi Abd: soft, nontender Ext: no edema Laboratory Results - last 24 hr 01/10/18 01/13/18 01/13/18 12:18 08:00 11:15 WBC RBC Hgb Hct MCV MCH MCHC RDW Plt Count MPV Absolute Neuts (auto) Neutrophils % Lymphocytes % Monocytes % Eosinophils % Basophils % Nucleated RBC % Sodium 137 Potassium 4.0 Chloride 103 Carbon Dioxide 26 Anion Gap 8 BUN 22 H Creatinine 1.0 Creat Clearance w eGFR > 60 Random Glucose 87 Calcium 8.2 L Phosphorus 3.4 Magnesium 2.1 Total Bilirubin 0.4 AST 84 H ALT 86 H Alkaline Phosphatase 144 H Total Protein 4.8 L Albumin 1.7 L Vancomycin Pre-Dose 18.07 Crossmatch See Detail 01/14/18 01/14/18 07:00 07:00 WBC 10.7 H RBC 2.78 L Hgb 8.0 L Hct 23.9 L MCV 86.1 MCH 28.6 MCHC 33.2 RDW 13.9 Plt Count 259 MPV 7.8 Absolute Neuts (auto) 8.9 H Neutrophils % 83.5 H Lymphocytes % 8.7 Monocytes % 6.2 Eosinophils % 1.4 Basophils % 0.2 Nucleated RBC % 0 Sodium 136 Potassium 4.1 Chloride 103 Carbon Dioxide 25 Anion Gap 8 BUN 17 Creatinine 0.8 Creat Clearance w eGFR > 60 Random Glucose 92 Calcium 8.1 L Phosphorus 3.1 Magnesium 1.9 Total Bilirubin 0.4 AST 85 H ALT 98 H Alkaline Phosphatase 130 H Total Protein 4.7 L Albumin 1.7 L Vancomycin Pre-Dose Crossmatch A/P Lumbar Compression Fractures s/p T12-L4 Laminectomies/T9-pelvis instrumentation/T9-S1 posterior lateral arthrodesis Acute COPD Exacerbation improved Chronic Hypoxic Respiratory Failure Pneumonia - ABX - inhaled bronchodilators standing and PRN / Symbicort - Pain control - Incentive spirometry - O2 to keep SpO2 >90% - PO as tolerated - PT - DVT prophylaxis Dr Gross
[2018-01-14] MEDS ORDERED: PT OWN MED DRAWER 7, Y5N ONE ×2 (10:55→17:46)
[2018-01-14] MEDS: predniSONE 5 MG TABLET (UD) PO SCH (11:03)
[2018-01-14] MEDS: POLYETHYLENE GLYCOL 3350 119 GM BTL PO SCH (11:03)
[2018-01-14] MEDS: PANTOPRAZOLE 40 MG TABLET (FP) PO SCH (11:04)
[2018-01-14] MEDS: SODIUM CHLORIDE 1,000 ML IV SCH (11:04)
[2018-01-14] MEDS: BUDESONIDE/FORMETEROL FUMARATE 160/4.5 mcg INHALER IH SCH ×2 (11:07→21:17)
--- NOTE | 2018-01-14 11:51 | PN ---
Progress Note, Physician History of Present Illness: Remains febrile C/O back pain with movement + cough noted Micro lab reports +BC presumptive MRSA - Current Medication List Current Medications: Active Medications Acetaminophen (Tylenol -) 1,000 mg PO Q6H PRN PRN Reason: PAIN Last Admin: 01/13/18 10:48 Dose: 1,000 mg Albuterol Sulfate (Ventolin 0.083% Nebulizer Soln -) 1 amp NEB Q6H PRN PRN Reason: SHORT OF BREATH/WHEEZING Albuterol/Ipratropium (Duoneb -) 1 amp NEB RTID [facility] Last Admin: 01/14/18 08:27 Dose: 1 amp Budesonide/Formoterol Fumarate (Symbicort 160/4.5mcg -) 2 puff IH BID [facility] Last Admin: 01/14/18 11:07 Dose: 2 puff Celecoxib (Celebrex -) 200 mg PO BID [facility] Last Admin: 01/10/18 11:10 Dose: 200 mg Docusate Sodium (Colace -) 100 mg PO BID PRN PRN Reason: CONSTIPATION Gabapentin (Neurontin -) 300 mg PO HS [facility] Last Admin: 01/13/18 21:53 Dose: 300 mg Piperacillin Sod/Tazobactam (Sod 4.5 gm/ Dextrose) 100 mls @ 200 mls/hr IVPB Q8H-IV [facility]; Protocol Last Admin: 01/14/18 11:03 Dose: 200 mls/hr Vancomycin HCl 1,250 mg/ (Dextrose) 250 mls @ 250 mls/2 hr IVPB BID@0000,1200 [facility]; Protocol Last Admin: 01/14/18 00:27 Dose: 250 mls/2 hr Sodium Chloride (Normal Saline -) 1,000 mls @ 50 mls/hr IV ASDIR [facility] Last Admin: 01/14/18 11:04 Dose: Not Given Ibuprofen (Motrin -) 600 mg PO Q6H PRN PRN Reason: FEVER Last Admin: 01/12/18 23:26 Dose: 600 mg Ondansetron HCl (Zofran Injection) 4 mg IVPUSH Q6H PRN PRN Reason: NAUSEA AND/OR VOMITING Pantoprazole Sodium (Protonix -) 40 mg PO DAILY [facility] Last Admin: 01/14/18 11:04 Dose: 40 mg Polyethylene Glycol (Miralax (For Daily Use) -) 17 gm PO DAILY [facility] Last Admin: 01/14/18 11:03 Dose: Not Given Prednisone (Deltasone -) 5 mg PO DAILY [facility] Last Admin: 01/14/18 11:03 Dose: 5 mg Senna (Senna -) 1 tab PO [facility] Last Admin: 01/13/18 21:53 Dose: 1 tab Trazodone HCl (Desyrel -) 150 mg PO [facility] Last Admin: 01/13/18 21:52 Dose: 150 mg - Objective Vital Signs: Vital Signs Temperature 100.7 F H 01/14/18 06:56 Pulse Rate 89 01/14/18 06:56 Respiratory Rate 20 01/14/18 06:56 Blood Pressure 143/64 01/14/18 06:56 O2 Sat by Pulse Oximetry (%) 96 01/13/18 09:00 Constitutional: Yes: No Distress Cardiovascular: Yes: Regular Rate and Rhythm, S1, S2 Respiratory: Yes: Rhonchi Gastrointestinal: Yes: Normal Bowel Sounds, Soft. No: Tenderness Edema: No Labs: CBC, BMP 01/14/18 07:00 01/14/18 07:00 Assessment/Plan Presumptive MRSA bacteremia POD #11 laminectomy Await final c/s Continue vancomycin/ zosyn
[2018-01-14] MEDS: ACETAMINOPHEN 500 MG TABLET (FP) PO PRN (14:40)
[2018-01-14] MEDS: traZODone HCL 50 MG TABLET (FP) PO SCH (21:17)
[2018-01-14] MEDS: SENNOSIDES 8.6MG TABLET (FP) PO SCH (21:17)
[2018-01-14] MEDS: GABAPENTIN 300 MG CAPSULE (FP) PO SCH (21:18)
[2018-01-15] MEDS ORDERED: PIPERACILLIN/TAZOBACTAM 4.5 GM VIAL IVPB ONE ×3 (01:38→17:28)
[2018-01-15] MEDS ORDERED: DEXTROSE 5%-WATER 100 ML IVPB ONE ×3 (01:38→17:29)
[2018-01-15] MEDS: PIPERACILLIN/TAZOB 4.5 GM 4.5 GM in DEXTROSE 5%-WATER 100 ML IVPB SCH ×3 (02:26→18:08)
[2018-01-15 07:51] LABS: BASO % 0.3 % (0-2.0); EOS % 0.9 % (0-4.5); HEMATOCRIT 26.7 % (35.4-49); HEMOGLOBIN 8.7 GM/dL (11.7-16.9); LYMPH % 11.6 % (8-40); MCH 28.3 pg (25.7-33.7); MCHC 32.7 g/dl (32.0-35.9); MEAN CELL VOLUME 86.5 fl (80-96); MEAN PLT VOLUME 7.7 fl (7.5-11.1); MONO % 6.6 % (3.8-10.2); NEUT % 80.6 % (42.8-82.8); PLATELET COUNT 293 K/MM3 (134-434); RBC 3.09 M/mm3 (4.00-5.60); WHITE BLOOD COUNT 9.4 K/mm3 (4.0-10.0)
[2018-01-15] MEDS: ALBUTEROL SO4 2.5/IPRATROPIUM 0.5 INH SOL 3 ML VIAL.NEB. NEB SCH ×3 (07:56→20:14)
[2018-01-15 08:52] LABS: ALBUMIN 1.8 g/dl (3.4-5.0); ANION GAP 10 MMOL/L (8-16); BILIRUBIN,TOTAL 0.4 mg/dL (0.2-1.0); BLOOD UREA NITROGEN 14 mg/dL (7-18); CALCIUM 8.4 mg/dL (8.5-10.1); CHLORIDE 106 mmol/L (98-107); CO2 25 mmol/L (21-32); CREATININE 0.8 mg/dL (0.55-1.3); GLUCOSE,RANDOM 84 mg/dL (74-106); POTASSIUM 4.1 mmol/L (3.5-5.1); SGOT/AST 85 U/L (15-37); SGPT/ALT 113 U/L (13-61); SODIUM 141 mmol/L (136-145)
[2018-01-15 08:53] LABS: ALK PHOS 133 U/L (45-117)
[2018-01-15] MEDS ORDERED: PT OWN MED DRAWER 7, Y5N ONE (09:52)
[2018-01-15] MEDS: predniSONE 5 MG TABLET (UD) PO SCH (10:00)
[2018-01-15] MEDS: PANTOPRAZOLE 40 MG TABLET (FP) PO SCH (10:00)
[2018-01-15] MEDS: ACETAMINOPHEN 500 MG TABLET (FP) PO PRN (10:00)
[2018-01-15] MEDS: POLYETHYLENE GLYCOL 3350 119 GM BTL PO SCH (10:01)
[2018-01-15] MEDS: BUDESONIDE/FORMETEROL FUMARATE 160/4.5 mcg INHALER IH SCH ×2 (10:03→21:29)
--- NOTE | 2018-01-15 10:22 | PN ---
Progress Note (short form) - Note Progress Note: Resting in NAD. No acute events overnight. Febrile last night. Afebrile this AM. Intake & Output 01/12/18 01/13/18 01/14/18 01/15/18 23:59 23:59 23:59 23:59 Intake Total 3300 2900 3980 Output Total 3900 2000 3000 1500 Balance -600 900 980 -1500 Last Vital Signs Temp Pulse Resp BP Pulse Ox 98.9 F 64 20 119/50 96 01/15/18 02:10 01/15/18 02:10 01/15/18 02:10 01/14/18 17:30 01/14/18 21:00 Home Medication List Medication Instructions Recorded Confirmed Type Albuterol 2.5/Ipratropium 0.5 1 amp NEB TID 12/14/17 01/03/18 History [Duoneb -] Cholecalciferol (Vitamin D3) 800 unit PO DAILY 12/14/17 01/03/18 History [Vitamin D -] Furosemide [Lasix -] 20 mg PO PRN PRN 12/14/17 01/03/18 History Gabapentin [Neurontin] 300 mg PO HS 12/14/17 01/03/18 History Mometasone/Formoterol [Dulera 200 2 inh IH BID 12/14/17 01/03/18 History Mcg/5 Mcg Inhaler] Omeprazole 40 mg PO DAILY 12/14/17 01/03/18 History Polyethylene Glycol 3350 [Clearlax] 17 gm PO DAILY 12/14/17 01/03/18 History Prednisone 5 mg PO DAILY 12/14/17 01/03/18 History Trazodone HCl 150 mg PO HS 12/14/17 01/03/18 History Aspirin [ASA -] 81 mg PO DAILY 01/03/18 01/03/18 History Active Medications Generic Name Dose Route Start Last Admin Trade Name Freq PRN Reason Stop Dose Admin Acetaminophen 1,000 mg 01/07/18 08:18 01/15/18 10:00 Tylenol - PO 1,000 mg Q6H PRN Administration PAIN Albuterol/Ipratropium 1 amp 01/07/18 14:00 01/15/18 07:56 Duoneb - NEB 1 amp RTID [facility] Administration Budesonide/Formoterol Fumarate 2 puff 01/07/18 10:00 01/15/18 10:03 Symbicort 160/4.5mcg - IH 2 puff BID [facility] Administration Celecoxib 200 mg 01/07/18 10:00 01/10/18 11:10 Celebrex - PO 200 mg BID [facility] Administration Docusate Sodium 100 mg 01/07/18 08:18 Colace - PO BID PRN CONSTIPATION Gabapentin 300 mg 01/07/18 22:00 01/14/18 21:18 Neurontin - PO 300 mg HS [facility] Administration Piperacillin Sod/Tazobactam 100 mls @ 200 mls/hr 01/11/18 11:45 01/15/18 09: 59 Sod 4.5 gm/ Dextrose IVPB 200 mls/hr Q8H-IV [facility] Administration Protocol Vancomycin HCl 1,250 mg/ 250 mls @ 250 mls/2 hr 01/11/18 13:14 01/14/18 23:03 Dextrose IVPB 250 mls/2 hr BID@0000,1200 [facility] Administration Protocol Sodium Chloride 1,000 mls @ 50 mls/hr 01/13/18 09:30 01/14/18 11:04 Normal Saline - IV Not Given ASDIR [facility] Ibuprofen 600 mg 01/10/18 16:45 01/12/18 23:26 Motrin - PO 600 mg Q6H PRN Administration FEVER Ondansetron HCl 4 mg 01/07/18 08:18 Zofran Injection IVPUSH Q6H PRN NAUSEA AND/OR VOMITING Pantoprazole Sodium 40 mg 01/07/18 10:00 01/15/18 10:00 Protonix - PO 40 mg DAILY [facility] Administration Polyethylene Glycol 17 gm 01/07/18 10:00 01/15/18 10:01 Miralax (For Daily Use) - PO Not Given DAILY [facility] Prednisone 5 mg 01/07/18 10:00 01/15/18 10:00 Deltasone - PO 5 mg DAILY [facility] Administration Senna 1 tab 01/07/18 22:00 01/14/18 21:17 Senna - PO 1 tab HS [facility] Administration Trazodone HCl 150 mg 01/07/18 22:00 01/14/18 21:17 Desyrel - PO 150 mg HS [facility] Administration Gen: NAD at rest Heart: RRR Lung: scattered rhonchi Abd: soft, nontender Ext: no edema Laboratory Results - last 24 hr 01/15/18 01/15/18 06:30 06:30 WBC 9.4 RBC 3.09 L Hgb 8.7 L Hct 26.7 L MCV 86.5 MCH 28.3 MCHC 32.7 RDW 14.0 Plt Count 293 MPV 7.7 Absolute Neuts (auto) 7.6 Neutrophils % 80.6 Lymphocytes % 11.6 D Monocytes % 6.6 Eosinophils % 0.9 Basophils % 0.3 Nucleated RBC % 0 Sodium 141 Potassium 4.1 Chloride 106 Carbon Dioxide 25 Anion Gap 10 BUN 14 Creatinine 0.8 Creat Clearance w eGFR > 60 Random Glucose 84 Calcium 8.4 L Total Bilirubin 0.4 AST 85 H ALT 113 H Alkaline Phosphatase 133 H Total Protein 5.0 L Albumin 1.8 L A/P Lumbar Compression Fractures s/p T12-L4 Laminectomies/T9-pelvis instrumentation/T9-S1 posterior lateral arthrodesis Acute COPD Exacerbation improved Chronic Hypoxic Respiratory Failure Pneumonia - ABX per ID - inhaled bronchodilators standing and PRN / Symbicort - Pain control - Incentive spirometry - O2 to keep SpO2 >90% - PO as tolerated - PT - DVT prophylaxis Dr Gross
--- NOTE | 2018-01-15 11:53 | PN ---
Progress Note, Physician Chief Complaint: Spiked 101 yesterday mild back pain History of Present Illness: 82 yrs old male PMH of COPD, chronic urinary retention, aortic aneurysm admitted to the ICU post-op s/p T12-L4 laminectomies, T9-pelvis PISF, developed wound exudate ? left LL infiltrate blood culture Grew MRSA on and Pre;im Gram + Cocci on 01/12, TWBC is trending normal - Current Medication List Current Medications: Active Medications Acetaminophen (Tylenol -) 1,000 mg PO Q6H PRN PRN Reason: PAIN Last Admin: 01/15/18 10:00 Dose: 1,000 mg Albuterol/Ipratropium (Duoneb -) 1 amp NEB RTID [facility] Last Admin: 01/15/18 07:56 Dose: 1 amp Budesonide/Formoterol Fumarate (Symbicort 160/4.5mcg -) 2 puff IH BID [facility] Last Admin: 01/15/18 10:03 Dose: 2 puff Celecoxib (Celebrex -) 200 mg PO BID [facility] Last Admin: 01/10/18 11:10 Dose: 200 mg Docusate Sodium (Colace -) 100 mg PO BID PRN PRN Reason: CONSTIPATION Gabapentin (Neurontin -) 300 mg PO HS [facility] Last Admin: 01/14/18 21:18 Dose: 300 mg Piperacillin Sod/Tazobactam (Sod 4.5 gm/ Dextrose) 100 mls @ 200 mls/hr IVPB Q8H-IV [facility]; Protocol Last Admin: 01/15/18 09:59 Dose: 200 mls/hr Vancomycin HCl 1,250 mg/ (Dextrose) 250 mls @ 250 mls/2 hr IVPB BID@0000,1200 [facility]; Protocol Last Admin: 01/14/18 23:03 Dose: 250 mls/2 hr Sodium Chloride (Normal Saline -) 1,000 mls @ 50 mls/hr IV ASDIR [facility] Last Admin: 01/14/18 11:04 Dose: Not Given Ibuprofen (Motrin -) 600 mg PO Q6H PRN PRN Reason: FEVER Last Admin: 01/12/18 23:26 Dose: 600 mg Ondansetron HCl (Zofran Injection) 4 mg IVPUSH Q6H PRN PRN Reason: NAUSEA AND/OR VOMITING Pantoprazole Sodium (Protonix -) 40 mg PO DAILY [facility] Last Admin: 01/15/18 10:00 Dose: 40 mg Polyethylene Glycol (Miralax (For Daily Use) -) 17 gm PO DAILY [facility] Last Admin: 01/15/18 10:01 Dose: Not Given Prednisone (Deltasone -) 5 mg PO DAILY [facility] Last Admin: 01/15/18 10:00 Dose: 5 mg Senna (Senna -) 1 tab PO [facility] Last Admin: 01/14/18 21:17 Dose: 1 tab Trazodone HCl (Desyrel -) 150 mg PO [facility] Last Admin: 01/14/18 21:17 Dose: 150 mg - Objective Vital Signs: Vital Signs Temperature 98.9 F 01/15/18 02:10 Pulse Rate 64 01/15/18 02:10 Respiratory Rate 20 01/15/18 02:10 Blood Pressure 119/50 01/14/18 17:30 O2 Sat by Pulse Oximetry (%) 96 01/14/18 21:00 Elderly man comfortable c/o mild back pain not in distress HEENT: MM moist, anemia, PERRLA, EOMI NECK: Supple No JVd No Bruit CHEST: Non tender CTA B/L CVS: S1S2 R SM no m/g/r ABD: No distention non tender Bs + EXT: S/P T12 to L4 Lamenctomies wound in dressing some exudate at dressing, No Edema feet no calf tenderness, pulses + FLUTE GRINDER: AOx3 non focal, Labs: CBC, BMP 01/15/18 06:30 01/15/18 06:30 Microbiology 01/12/18 23:40 Blood Culture - Preliminary Blood - Peripheral Venous Staphylococcus Coagulase Neg 01/12/18 23:40 Blood Culture - Preliminary Blood - Peripheral Venous Pending Organism 01/10/18 19:00 Blood Culture - Final Blood - Peripheral Venous Mr S Aureus 01/10/18 18:00 Blood Culture - Final Blood - Peripheral Venous Mr S Aureus - ....Imaging X-ray: Report Reviewed (? Left LL infiltrate) Problem List - Problems (1) S/P spinal fusion Assessment/Plan: s/p T12-L4 laminectomies, T9-pelvis PISF remained pain free afebrile some bloody discharge from the wound, will F/U surgery recommendations, today out of the bed participating in PT Code(s): Z98.1 - ARTHRODESIS STATUS (2) COPD (chronic obstructive pulmonary disease) Assessment/Plan: Well controlled cont current nebs and MDI with Prednisone 5 mg PO, incentive spirometry Code(s): J44.9 - CHRONIC OBSTRUCTIVE PULMONARY DISEASE, UNSPECIFIED Qualifiers: COPD type: unspecified COPD Qualified Code(s): J44.9 - Chronic obstructive pulmonary disease, unspecified (3) Spinal stenosis Assessment/Plan: Cont Pain medications Code(s): M48.00 - SPINAL STENOSIS, SITE UNSPECIFIED Qualifiers: Spinal region: thoracolumbar Qualified Code(s): M48.05 - Spinal stenosis, thoracolumbar region (4) Anemia Assessment/Plan: Chronic H/H stable after transfusion Code(s): D64.9 - ANEMIA, UNSPECIFIED Qualifiers: Anemia type: other cause Other causes of anemia: acute posthemorrhagic Qualified Code(s): D62 - Acute posthemorrhagic anemia (5) MRSA (methicillin resistant staph aureus) culture positive Assessment/Plan: Blood culture Grew MRSA on 01/10 and 01/12 prelim grew G+ Cocci in cluster, on IV vancomycine and Zosyn, will F/U ID recommendation. Code(s): Z22.322 - CARRIER OR SUSPECTED CARRIER OF METHICILLIN RESIS STAPH (6) Urinary retention Assessment/Plan: Urinary retention most likely due to UTI U Keke Gardner on Zosyn will Rpt UA and U Culture after completion of abx. Code(s): R33.9 - RETENTION OF URINE, UNSPECIFIED
[2018-01-15] MEDS: NYSTATIN 100,000 UNIT/GM TOPICAL CREAM 15 GM TUBE TP SCH ×2 (14:07→21:32)
[2018-01-15] MEDS: VANCOMYCIN 1,250 MG in DEXTROSE 5%-WATER - 250 ML IVPB SCH (14:07)
[2018-01-15] MEDS: SODIUM CHLORIDE 1,000 ML IV SCH (14:08)
[2018-01-15] MEDS: SENNOSIDES 8.6MG TABLET (FP) PO SCH (21:24)
[2018-01-15] MEDS: GABAPENTIN 300 MG CAPSULE (FP) PO SCH (21:24)
[2018-01-15] MEDS: traZODone HCL 50 MG TABLET (FP) PO SCH (21:25)
--- NOTE | 2018-01-15 21:54 | PN ---
Progress Note, Physician History of Present Illness: Awake in bed Offers no complaints Temps down WBC improved WNL Repeat BC pending - Current Medication List Current Medications: Active Medications Acetaminophen (Tylenol -) 1,000 mg PO Q6H PRN PRN Reason: PAIN Last Admin: 01/15/18 10:00 Dose: 1,000 mg Albuterol/Ipratropium (Duoneb -) 1 amp NEB RTID [facility] Last Admin: 01/15/18 20:14 Dose: 1 amp Budesonide/Formoterol Fumarate (Symbicort 160/4.5mcg -) 2 puff IH BID [facility] Last Admin: 01/15/18 21:29 Dose: 2 puff Celecoxib (Celebrex -) 200 mg PO BID [facility] Last Admin: 01/10/18 11:10 Dose: 200 mg Docusate Sodium (Colace -) 100 mg PO BID PRN PRN Reason: CONSTIPATION Gabapentin (Neurontin -) 300 mg PO HS [facility] Last Admin: 01/15/18 21:24 Dose: 300 mg Piperacillin Sod/Tazobactam (Sod 4.5 gm/ Dextrose) 100 mls @ 200 mls/hr IVPB Q8H-IV [facility]; Protocol Last Admin: 01/15/18 18:08 Dose: 200 mls/hr Vancomycin HCl 1,250 mg/ (Dextrose) 250 mls @ 250 mls/2 hr IVPB BID@0000,1200 [facility]; Protocol Last Admin: 01/15/18 14:07 Dose: 250 mls/2 hr Sodium Chloride (Normal Saline -) 1,000 mls @ 50 mls/hr IV ASDIR [facility] Last Admin: 01/15/18 14:08 Dose: 50 mls/hr Ibuprofen (Motrin -) 600 mg PO Q6H PRN PRN Reason: FEVER Last Admin: 01/12/18 23:26 Dose: 600 mg Nystatin (Mycostatin Cream -) 1 applic TP BID [facility] Last Admin: 01/15/18 21:32 Dose: 1 applic Ondansetron HCl (Zofran Injection) 4 mg IVPUSH Q6H PRN PRN Reason: NAUSEA AND/OR VOMITING Pantoprazole Sodium (Protonix -) 40 mg PO DAILY [facility] Last Admin: 01/15/18 10:00 Dose: 40 mg Polyethylene Glycol (Miralax (For Daily Use) -) 17 gm PO DAILY [facility] Last Admin: 01/15/18 10:01 Dose: Not Given Prednisone (Deltasone -) 5 mg PO DAILY [facility] Last Admin: 01/15/18 10:00 Dose: 5 mg Senna (Senna -) 1 tab PO [facility] Last Admin: 01/15/18 21:24 Dose: 1 tab Trazodone HCl (Desyrel -) 150 mg PO [facility] Last Admin: 01/15/18 21:25 Dose: 150 mg - Objective Vital Signs: Vital Signs Temperature 98.6 F 01/15/18 15:37 Pulse Rate 97 H 01/15/18 15:37 Respiratory Rate 20 01/15/18 15:37 Blood Pressure 110/48 01/15/18 15:37 O2 Sat by Pulse Oximetry (%) 97 01/15/18 09:00 Constitutional: Yes: No Distress Eyes: Yes: Conjunctiva Clear Cardiovascular: Yes: Regular Rate and Rhythm, S1, S2 Respiratory: Yes: CTA Bilaterally Gastrointestinal: Yes: Normal Bowel Sounds, Soft Integumentary: Yes: Other (Surgical wound examined Slight eryhema noted + serous drainage on dressing No gross purulence) Labs: CBC, BMP 01/15/18 06:30 01/15/18 06:30 Assessment/Plan MRSA bacteremia UTI POD #12 laminectomy Continue vancomycin/ zosyn Discussed with at bedside
[2018-01-16] MEDS ORDERED: PIPERACILLIN/TAZOBACTAM 4.5 GM VIAL IVPB ONE ×3 (01:59→17:54)
[2018-01-16] MEDS ORDERED: DEXTROSE 5%-WATER 100 ML IVPB ONE ×3 (02:00→17:54)
[2018-01-16] MEDS: PIPERACILLIN/TAZOB 4.5 GM 4.5 GM in DEXTROSE 5%-WATER 100 ML IVPB SCH ×3 (02:56→18:29)
[2018-01-16 07:28] LABS: BASO % 0.7 % (0-2.0); EOS % 1.1 % (0-4.5); HEMATOCRIT 23.9 % (35.4-49); HEMOGLOBIN 7.8 GM/dL (11.7-16.9); LYMPH % 12.9 % (8-40); MCH 28.1 pg (25.7-33.7); MCHC 32.7 g/dl (32.0-35.9); MEAN CELL VOLUME 85.9 fl (80-96); MEAN PLT VOLUME 7.4 fl (7.5-11.1); MONO % 6.1 % (3.8-10.2); NEUT % 79.2 % (42.8-82.8); PLATELET COUNT 312 K/MM3 (134-434); RBC 2.78 M/mm3 (4.00-5.60); RDW 14.2 % (11.9-15.9); WHITE BLOOD COUNT 8.9 K/mm3 (4.0-10.0)
[2018-01-16] MEDS: ALBUTEROL SO4 2.5/IPRATROPIUM 0.5 INH SOL 3 ML VIAL.NEB. NEB SCH ×3 (07:40→19:48)
[2018-01-16 07:57] LABS: ANION GAP 12 MMOL/L (8-16); BLOOD UREA NITROGEN 13 mg/dL (7-18); CALCIUM 8.3 mg/dL (8.5-10.1); CHLORIDE 104 mmol/L (98-107); CO2 23 mmol/L (21-32); CREATININE 0.8 mg/dL (0.55-1.3); GLUCOSE,RANDOM 89 mg/dL (74-106); SODIUM 139 mmol/L (136-145)
[2018-01-16] MEDS ORDERED: PT OWN MED DRAWER 7, Y5N ONE ×2 (09:14→12:42)
[2018-01-16] MEDS: NYSTATIN 100,000 UNIT/GM TOPICAL CREAM 15 GM TUBE TP SCH ×2 (09:22→21:53)
[2018-01-16] MEDS: PANTOPRAZOLE 40 MG TABLET (FP) PO SCH (09:23)
[2018-01-16] MEDS: predniSONE 5 MG TABLET (UD) PO SCH (09:23)
[2018-01-16] MEDS: POLYETHYLENE GLYCOL 3350 119 GM BTL PO SCH (09:26)
[2018-01-16] MEDS: BUDESONIDE/FORMETEROL FUMARATE 160/4.5 mcg INHALER IH SCH ×2 (09:26→21:52)
--- NOTE | 2018-01-16 11:41 | PN ---
Physical Exam: SUBJECTIVE: Patient seen and examined at bedside has back pain only with movement at rest he feels ok updated about medical condition and all questions answered Afebrile OBJECTIVE: Vital Signs Period Temp Pulse Resp BP Sys/Hyman Pulse Ox Last 24 Hr 98.6 F-99.7 F 92-116 20-20 110-154/48-69 97 GENERAL:Alert and awake and orientated to person place and self HEAD: Normal with no signs of trauma. EYES: PERRL, extraocular movements intact ENT: Moist mucous membranes. NECK: Trachea midline, full range of motion, supple. LUNGS: Bilateral Rhonchi. scattered wheezing. able to speak in full sentences. HEART: Regular rate and rhythm, S1, S2 ABDOMEN: Soft, nontender, nondistended, normoactive bowel sounds, no guarding. Ventral hernia : holder in place with yellow cloudy urine and urine sediment EXTREMITIES: well-perfused, no edema. NEUROLOGICAL: Cranial nerves II through XII grossly intact. Normal speech. sensation intact in all extremities. strength 4/5 in bilateral lower extremities. Strength 5/5 in upper extremities. PSYCH: Normal mood, normal affect. SKIN:Warm, Dry Laboratory Results - last 24 hr 01/10/18 01/16/18 01/16/18 12:18 06:30 06:30 WBC 8.9 RBC 2.78 L Hgb 7.8 L Hct 23.9 L MCV 85.9 MCH 28.1 MCHC 32.7 RDW 14.2 Plt Count 312 MPV 7.4 L Absolute Neuts (auto) 7.0 Neutrophils % 79.2 Lymphocytes % 12.9 Monocytes % 6.1 Eosinophils % 1.1 Basophils % 0.7 Nucleated RBC % 0 Sodium 139 Potassium 4.0 Chloride 104 Carbon Dioxide 23 Anion Gap 12 BUN 13 Creatinine 0.8 Creat Clearance w eGFR > 60 Random Glucose 89 Calcium 8.3 L Blood Type A POSITIVE Antibody Screen Negative Crossmatch See Detail Active Medications Generic Name Dose Route Start Last Admin Trade Name Freq PRN Reason Stop Dose Admin Acetaminophen 1,000 mg 01/07/18 08:18 01/15/18 10:00 Tylenol - PO 1,000 mg Q6H PRN Administration PAIN Albuterol/Ipratropium 1 amp 01/07/18 14:00 01/16/18 07:40 Duoneb - NEB 1 amp RTID [facility] Administration Budesonide/Formoterol Fumarate 2 puff 01/07/18 10:00 01/16/18 09:26 Symbicort 160/4.5mcg - IH 2 puff BID [facility] Administration Celecoxib 200 mg 01/07/18 10:00 01/10/18 11:10 Celebrex - PO 200 mg BID [facility] Administration Docusate Sodium 100 mg 01/07/18 08:18 Colace - PO BID PRN CONSTIPATION Gabapentin 300 mg 01/07/18 22:00 01/15/18 21:24 Neurontin - PO 300 mg HS [facility] Administration Piperacillin Sod/Tazobactam 100 mls @ 200 mls/hr 01/11/18 11:45 01/16/18 09: 23 Sod 4.5 gm/ Dextrose IVPB 200 mls/hr Q8H-IV [facility] Administration Protocol Vancomycin HCl 1,250 mg/ 250 mls @ 250 mls/2 hr 01/11/18 13:14 01/16/18 00:00 Dextrose IVPB 250 mls/2 hr BID@0000,1200 [facility] Administration Protocol Sodium Chloride 1,000 mls @ 50 mls/hr 01/13/18 09:30 01/15/18 14:08 Normal Saline - IV 50 mls/hr ASDIR [facility] Administration Ibuprofen 600 mg 01/10/18 16:45 01/12/18 23:26 Motrin - PO 600 mg Q6H PRN Administration FEVER Nystatin 1 applic 01/15/18 12:00 01/16/18 09:22 Mycostatin Cream - TP 1 applic BID [facility] Administration Ondansetron HCl 4 mg 01/07/18 08:18 Zofran Injection IVPUSH Q6H PRN NAUSEA AND/OR VOMITING Pantoprazole Sodium 40 mg 01/07/18 10:00 01/16/18 09:23 Protonix - PO 40 mg DAILY [facility] Administration Polyethylene Glycol 17 gm 01/07/18 10:00 01/16/18 09:26 Miralax (For Daily Use) - PO Not Given DAILY [facility] Prednisone 5 mg 01/07/18 10:00 01/16/18 09:23 Deltasone - PO 5 mg DAILY [facility] Administration Senna 1 tab 01/07/18 22:00 01/15/18 21:24 Senna - PO 1 tab HS [facility] Administration Trazodone HCl 150 mg 01/07/18 22:00 01/15/18 21:25 Desyrel - PO 150 mg HS [facility] Administration ASSESSMENT/PLAN: 82 year old male with a hx of COPD, chronic urinary retention, spinal stenosis, and multiple falls is post op day #13 s/p T12-L4 laminectomies, T9-pelvis posterior instrumentation, T9-S1 rockboard lather-lateral arthrodesis, Autograft, Allograft, and Bone marrow aspirate. Sepsis/Low grade fever: secondary to UTI and hospital acquired pneumonia. Possible patient also has a bacteremia Blood cultures growing BCx. Second set done 3 days later also growing staph species repeat (third set) blood cultures done yesterday pending WEill speak to Dr. Roberts about having hardware and the concern with bacteremia Concern with bacteremia as patient has hardware in his spine Will get echo to r/o endocarditis ID consult much appreciated Urine culture growing gram negative bacili-sensitive to zosyn continue vanco/zosyn for now as this should cover all sources of infection continue tylenol/advil for fever hold celebrex for now as this is also an NSAID Leukocytosis resolved Lower back pain: L1, L3 compression fractures, Kyphosis, Spinal stenosis, Segmental instability, Progressive neurological decline POD #13 s/p T12-L4 laminectomies, T9-pelvis posterior instrumentation, T9-S1 rockboard lather-lateral arthrodesis, Autograft, Allograft, and Bone marrow aspirate. Patient tolerated the procedure well Pain is well controlled at this time Patient has not used Oxycodone since 01/10. Per family patient has AMS when takes trazodone and oxycodone together PT consult appreciated-was not able to participate due to altered mental status and being slightly combative yesterday will try again today Incentive spirometry COPD not in exacerbation: Continue Duonebs Scheduled albuterol Nebs PRN Chest PT BID continue prednisone 5mg po daily patient on Dulera at home on symbicort here O2 PRN and while sleeping Chronic Urinary Retention hloder in for now To continue self catheterizing at home Transaminitis: AST/ALT and Alk-P elevated could be due to Zosyn use RUQ US no acute pathology Chronic constipation: miralax history of AAA s/p stenting no issues at this time acute on chronic Anemia. blood loss 700ml in OR s/p 1 unit PRBC Hb Stable at this time continue to trend and transfuse PRN FEN stop IVF No electrolyte issues Regular diet Prophylaxis SCDs-No chemical PPx per spine surgery Protonix for GERD PT consult Case discussed with Dr. Woo Visit type - Emergency Visit Emergency Visit: Yes ED Registration Date: 01/03/18 Care time: The patient presented to the Emergency Department on the above date and was hospitalized for further evaluation of their emergent condition. - New Patient This patient is new to me today: No - Critical Care Critical Care patient: No
--- NOTE | 2018-01-16 11:44 | PN ---
Progress Note (short form) - Note Progress Note: Overall improving. Pain/discomfort upon moving. No acute events overnight. Intake & Output 01/13/18 01/14/18 01/15/18 01/16/18 23:59 23:59 23:59 23:59 Intake Total 2900 3980 1650 Output Total 2000 3000 2300 2100 Balance 900 980 -650 -2100 Last Vital Signs Temp Pulse Resp BP Pulse Ox 99.7 F H 116 H 20 119/69 97 01/16/18 06:00 01/16/18 06:00 01/16/18 06:00 01/16/18 06:00 01/15/18 21:00 Active Medications Acetaminophen (Tylenol -) 1,000 mg PO Q6H PRN PRN Reason: PAIN Last Admin: 01/15/18 10:00 Dose: 1,000 mg Albuterol/Ipratropium (Duoneb -) 1 amp NEB RTID SABINA Last Admin: 01/16/18 07:40 Dose: 1 amp Budesonide/Formoterol Fumarate (Symbicort 160/4.5mcg -) 2 puff IH BID S[facility]INA Last Admin: 01/16/18 09:26 Dose: 2 puff Celecoxib (Celebrex -) 200 mg PO BID S[facility]INA Last Admin: 01/10/18 11:10 Dose: 200 mg Docusate Sodium (Colace -) 100 mg PO BID PRN PRN Reason: CONSTIPATION Gabapentin (Neurontin -) 300 mg PO HS SABINA Last Admin: 01/15/18 21:24 Dose: 300 mg Piperacillin Sod/Tazobactam (Sod 4.5 gm/ Dextrose) 100 mls @ 200 mls/hr IVPB Q8H-IV SABINA; Protocol Last Admin: 01/16/18 09:23 Dose: 200 mls/hr Vancomycin HCl 1,250 mg/ (Dextrose) 250 mls @ 250 mls/2 hr IVPB BID@0000,1200 SABINA; Protocol Last Admin: 01/16/18 00:00 Dose: 250 mls/2 hr Sodium Chloride (Normal Saline -) 1,000 mls @ 50 mls/hr IV ASDIR SABINA Last Admin: 01/15/18 14:08 Dose: 50 mls/hr Ibuprofen (Motrin -) 600 mg PO Q6H PRN PRN Reason: FEVER Last Admin: 01/12/18 23:26 Dose: 600 mg Nystatin (Mycostatin Cream -) 1 applic TP BID [facility] Last Admin: 01/16/18 09:22 Dose: 1 applic Ondansetron HCl (Zofran Injection) 4 mg IVPUSH Q6H PRN PRN Reason: NAUSEA AND/OR VOMITING Pantoprazole Sodium (Protonix -) 40 mg PO DAILY [facility] Last Admin: 01/16/18 09:23 Dose: 40 mg Polyethylene Glycol (Miralax (For Daily Use) -) 17 gm PO DAILY [facility] Last Admin: 01/16/18 09:26 Dose: Not Given Prednisone (Deltasone -) 5 mg PO DAILY [facility] Last Admin: 01/16/18 09:23 Dose: 5 mg Senna (Senna -) 1 tab PO [facility] Last Admin: 01/15/18 21:24 Dose: 1 tab Trazodone HCl (Desyrel -) 150 mg PO HS [facility] Last Admin: 01/15/18 21:25 Dose: 150 mg Gen: NAD at rest Heart: RRR Lung: scattered rhonchi Abd: soft, nontender Ext: no edema Laboratory Results - last 24 hr 01/10/18 01/16/18 01/16/18 12:18 06:30 06:30 WBC 8.9 RBC 2.78 L Hgb 7.8 L Hct 23.9 L MCV 85.9 MCH 28.1 MCHC 32.7 RDW 14.2 Plt Count 312 MPV 7.4 L Absolute Neuts (auto) 7.0 Neutrophils % 79.2 Lymphocytes % 12.9 Monocytes % 6.1 Eosinophils % 1.1 Basophils % 0.7 Nucleated RBC % 0 Sodium 139 Potassium 4.0 Chloride 104 Carbon Dioxide 23 Anion Gap 12 BUN 13 Creatinine 0.8 Creat Clearance w eGFR > 60 Random Glucose 89 Calcium 8.3 L Blood Type A POSITIVE Antibody Screen Negative Crossmatch See Detail A/P Lumbar Compression Fractures s/p T12-L4 Laminectomies/T9-pelvis instrumentation/T9-S1 posterior lateral arthrodesis Acute COPD Exacerbation improved Chronic Hypoxic Respiratory Failure Pneumonia - ABX per ID - inhaled bronchodilators standing and PRN / Symbicort - Pain control - Incentive spirometry - O2 to keep SpO2 >90% - PO as tolerated - PT - DVT prophylaxis Dr Gross
[2018-01-16] MEDS: VANCOMYCIN 1,250 MG in DEXTROSE 5%-WATER - 250 ML IVPB SCH ×2 (12:44)
--- NOTE | 2018-01-16 12:44 | PN ---
Progress Note (short form) - Note Progress Note: events noted- now with MRSA bacteremia- 01/10 repeat blood cultures pending nurse has just done dressing change, reports continued serous drainage unable to examine wound as dressing was just done Vital Signs Period Temp Pulse Resp BP Sys/Hyman Pulse Ox Last 24 Hr 98.6 F-99.7 F 92-116 20-20 110-154/48-69 97 cor-rrr lungs clear, decreased bs at bases abd soft,nt ext no edema +holder CBC, BMP 01/16/18 06:30 01/16/18 06:30 Microbiology 01/15/18 09:00 Blood - Peripheral Venous Blood Culture - Preliminary NO GROWTH OBTAINED AFTER 24 HOURS, INCUBATION TO CONTINUE FOR 4 DAYS. 01/12/18 23:40 Blood - Peripheral Venous Blood Culture - Preliminary Staphylococcus Species 01/15/18 06:30 Blood - Peripheral Venous Blood Culture - Preliminary NO GROWTH OBTAINED AFTER 24 HOURS, INCUBATION TO CONTINUE FOR 4 DAYS. 01/12/18 23:40 Blood - Peripheral Venous Blood Culture - Preliminary Staphylococcus Coagulase Neg 01/10/18 19:00 Blood - Peripheral Venous Blood Culture - Final Mr S Aureus 01/10/18 18:00 Blood - Peripheral Venous Blood Culture - Final Mr S Aureus 01/10/18 15:00 Urine - Urine - Catheterized Urine Culture - Final Escherichia Coli a/p MRSA bacteremia- ecoli uti s/p laminectomy T12 to L4-01/03/18 AAA with endovascular stent continue vancomycin, repeat trough in am echo repeat blood cultures pending esr/crp await surgical f/u of back-concern for infection given recent hardware d/w Resident Problem List - Problems (1) Fever Code(s): R50.9 - FEVER, UNSPECIFIED (2) Status post laminectomy Code(s): Z98.890 - OTHER SPECIFIED POSTPROCEDURAL STATES
--- NOTE | 2018-01-16 15:33 | ECHO ---
Name: RACHEAL RUIZ Exam:Adult Echocardiogram Study Date: 01/16/2018 01:52 PM Age: 82 yrs Reason For Study: MRSA BACTEREMIA Height: 74 in Weight: 209 lb BSA: 2.2 m2 MMode/2D Measurements & Calculations IVSd: 0.98 cm Ao root diam: 3.3 cm LVIDd: 5.3 cm LA dimension: 4.1 cm LVIDs: 3.9 cm LVPWd: 0.95 cm EDV(Teich): 135.6 ml RV S Terry: 17.4 cm/sec ESV(Teich): 65.1 ml Doppler Measurements & Calculations MV E max terry: 45.9 cm/sec MR max terry: 379.2 cm/sec MV A max terry: 77.0 cm/sec MR max P.5 mmHg MV E/A: 0.60 TR max terry: 227.4 cm/sec PI end-d terry: 74.7 cm/sec TR max P.7 mmHg Med Peak E' Terry: 7.6 cm/sec Med E/e': 6.1 Lat Peak E' Terry: 3.3 cm/sec Lat E/e': 13.7 Procedure A complete two-dimensional transthoracic echocardiogram was performed (2D, M-mode, Doppler and color flow Doppler). Technically limited study. Left Ventricle The left ventricle is normal in size. Left ventricular systolic function is normal. Ejection Fraction = 60- 65%. E/A reversal consistent with but not diagnostic of poor LV compliance. No regional wall motion abnormalities noted. Right Ventricle The right ventricle is normal size. The right ventricular systolic function is normal. RV systolic TD I is 17 cm/s. Atria The left atrial size is normal. Right atrial size is normal. Mitral Valve The mitral valve is normal in structure and function. There is no mitral regurgitation noted. Tricuspid Valve The tricuspid valve is normal in structure and function. No tricuspid regurgitation. Aortic Valve There is mild aortic sclerosis.;. No aortic regurgitation is present. Pulmonic Valve The pulmonic valve is not well visualized. Trace pulmonic valvular regurgitation. Great Vessels The aortic root is normal size. Pericardium/Pleura There is no pericardial effusion. Interpretation Summary Technically limited study The left ventricle is normal in size. Left ventricular systolic function is normal. No regional wall motion abnormalities noted. Ejection Fraction = 60-65%. E/A reversal consistent with but not diagnostic of poor LV compliance The right ventricular systolic function is normal. The left atrial size is normal. Right atrial size is normal. There is mild aortic sclerosis.; Trace pulmonic valvular regurgitation. There is no pericardial effusion. Previous study is not available for comparison Jarad Hair MD 01/16/2018 03:32 PM
--- NOTE | 2018-01-16 15:41 | PN ---
Teaching Attending Note Name of Resident: Nahid Mata ATTENDING PHYSICIAN STATEMENT I saw and evaluated the patient. I reviewed the resident's note and discussed the case with the resident. I agree with the resident's findings and plan as documented. SUBJECTIVE: Patient complains of back pain. OBJECTIVE: Vital Signs Period Temp Pulse Resp BP Sys/Hyman Pulse Ox Last 24 Hr 98.6 F-99.7 F 92-116 20-20 110-154/48-69 97 HEART: S1S2, RRR LUNGS: Bilateral wheezes and rhonchi ABDOMEN: Soft, non-tender, non-distended, normal BS EXTREMITIES: No edema Laboratory Results - last 24 hr 01/10/18 01/16/18 01/16/18 12:18 06:30 06:30 WBC 8.9 RBC 2.78 L Hgb 7.8 L Hct 23.9 L MCV 85.9 MCH 28.1 MCHC 32.7 RDW 14.2 Plt Count 312 MPV 7.4 L Absolute Neuts (auto) 7.0 Neutrophils % 79.2 Lymphocytes % 12.9 Monocytes % 6.1 Eosinophils % 1.1 Basophils % 0.7 Nucleated RBC % 0 Sodium 139 Potassium 4.0 Chloride 104 Carbon Dioxide 23 Anion Gap 12 BUN 13 Creatinine 0.8 Creat Clearance w eGFR > 60 Random Glucose 89 Calcium 8.3 L Blood Type A POSITIVE Antibody Screen Negative Crossmatch See Detail Current Medications Generic Name Dose Route Start Last Admin Trade Name Freq PRN Reason Stop Dose Admin Acetaminophen 1,000 mg 01/07/18 08:18 01/15/18 10:00 Tylenol - PO 1,000 mg Q6H PRN Administration PAIN Albuterol/Ipratropium 1 amp 01/07/18 14:00 01/16/18 14:33 Duoneb - NEB 1 amp RTID SABINA Administration Budesonide/Formoterol Fumarate 2 puff 01/07/18 10:00 01/16/18 09:26 Symbicort 160/4.5mcg - IH 2 puff BID SABINA Administration Celecoxib 200 mg 01/07/18 10:00 01/10/18 11:10 Celebrex - PO 200 mg BID SABINA Administration Docusate Sodium 100 mg 01/07/18 08:18 Colace - PO BID PRN CONSTIPATION Gabapentin 300 mg 01/07/18 22:00 01/15/18 21:24 Neurontin - PO 300 mg HS SABINA Administration Piperacillin Sod/Tazobactam 100 mls @ 200 mls/hr 01/11/18 11:45 01/16/18 09: 23 Sod 4.5 gm/ Dextrose IVPB 200 mls/hr Q8H-IV SABINA Administration Protocol Vancomycin HCl 1,250 mg/ 250 mls @ 250 mls/2 hr 01/11/18 13:14 01/16/18 12:44 Dextrose IVPB 250 mls/2 hr BID@0000,1200 SABINA Administration Protocol Ibuprofen 600 mg 01/10/18 16:45 01/12/18 23:26 Motrin - PO 600 mg Q6H PRN Administration FEVER Nystatin 1 applic 01/15/18 12:00 01/16/18 09:22 Mycostatin Cream - TP 1 applic BID SABINA Administration Ondansetron HCl 4 mg 01/07/18 08:18 Zofran Injection IVPUSH Q6H PRN NAUSEA AND/OR VOMITING Pantoprazole Sodium 40 mg 01/07/18 10:00 01/16/18 09:23 Protonix - PO 40 mg DAILY [facility] Administration Polyethylene Glycol 17 gm 01/07/18 10:00 01/16/18 09:26 Miralax (For Daily Use) - PO Not Given DAILY [facility] Prednisone 5 mg 01/07/18 10:00 01/16/18 09:23 Deltasone - PO 5 mg DAILY [facility] Administration Senna 1 tab 01/07/18 22:00 01/15/18 21:24 Senna - PO 1 tab HS [facility] Administration Trazodone HCl 150 mg 01/07/18 22:00 01/15/18 21:25 Desyrel - PO 150 mg HS SABINA Administration ASSESSMENT AND PLAN: This is an 82 year old man a history of COPD, chronic urinary retention, lumbar compression fractures with spinal stenosis who was admitted for lumbar spine surgery. 1. Sepsis secondary to E. coli UTI, pneumonia, MRSA bacteremia - Continue Zosyn, Vancomycin - Blood cultures 01/10 growing MRSA x2 - Blood cultures 01/12 growing Staph x2 - Blood cultures 01/15 negative after 24 hrs - ESR, C-RP ordered - Echo shows normal LV, normal LV systolic function, LVEF 60-65%, E/A reversal, normal RV systolic function, trace MN 2. Lumbar spinal stenosis, lumbar compression fractures, lumbar kyphosis - s/p T12-L4 laminectomies, T9-pelvis posterior instrumentation, T9-S1 posterolateral arthrodesis 01/03 - Pain control - Incentive spirometer - Ambulation - Continue physical therapy - Ortho/spine follow up 3. Acute exacerbation of COPD - Improved - Continue Prednisone, Symbicort, DuoNeb, oxygen - Patient is steroid-dependent at home 4. Chronic hypoxic respiratory failure - Oxygen to maintain saturation >90% 5. Anemia - Likely acute blood loss and sepsis on chronic anemia - Transfused 1 unit PRBCs this admission - Transfuse as needed to keep Hgb >8.0 6. Chronic urinary retention - Patient does self-catheterization at home 7. Constipation - Continue Colace, Senna, Miralax 8. Disposition - Plan for subacute rehab
[2018-01-16] MEDS: ACETAMINOPHEN 500 MG TABLET (FP) PO PRN (16:16)
--- NOTE | 2018-01-16 17:55 | PN ---
Progress Note (short form) - Note Progress Note: 82M s/p T12-L4 laminectomies, T9-pelvis PISF POD #13. (+) Persistent spine wound drainage. Pain well controlled. No acute events overnight. (+) Voiding, (+) Flatus, (+) BM. (+) Walked in room. All labs and vitals reviewed. PE: NAD. Spine: (+) Proximal sero-purulent drainage. B/L LE sensorimotor status at baseline; intact, generally weak. 82M s/p T12-L4 laminectomies, T9-pelvis PISF POD #13. -NPO, IVF after breakfast (9am). -Pt. on add-on surgical schedule for 01/17/2018 for wound I&D. -Pain control: per anaesthesia team; recommend FILING OR REGISTRY CLERK; No NSAID's. -DVT PPx: - Mechanical only: JEB's, SCD's. -Incentive spirometry. -PT/OT/Rehab, OOB. -WBAT B/L LE. -q4h B/L LE NV checks. -f/u AM labs. -Care per medical hospitalist team. -Will follow. Mihir Roberts MD (Orthopaedic Surgery).
[2018-01-16] MEDS: SODIUM CHLORIDE 1,000 ML IV SCH ×2 (18:29→21:53)
[2018-01-16] MEDS: SENNOSIDES 8.6MG TABLET (FP) PO SCH (21:49)
[2018-01-16] MEDS: GABAPENTIN 300 MG CAPSULE (FP) PO SCH (21:49)
[2018-01-16] MEDS: traZODone HCL 50 MG TABLET (FP) PO SCH (21:49)
[2018-01-17] MEDS: VANCOMYCIN 1,250 MG in DEXTROSE 5%-WATER - 250 ML IVPB SCH ×2 (00:22→13:49)
[2018-01-17] MEDS ORDERED: PIPERACILLIN/TAZOBACTAM 4.5 GM VIAL IVPB ONE ×3 (01:14→17:04)
[2018-01-17] MEDS ORDERED: DEXTROSE 5%-WATER 100 ML IVPB ONE ×3 (01:15→17:05)
[2018-01-17] MEDS: PIPERACILLIN/TAZOB 4.5 GM 4.5 GM in DEXTROSE 5%-WATER 100 ML IVPB SCH ×3 (02:22→17:12)
[2018-01-17] MEDS: ALBUTEROL SO4 2.5/IPRATROPIUM 0.5 INH SOL 3 ML VIAL.NEB. NEB SCH ×3 (07:25→21:14)
[2018-01-17 07:49] LABS: BASO % 0.2 % (0-2.0); EOS % 1.6 % (0-4.5); HEMOGLOBIN 7.8 GM/dL (11.7-16.9); MCH 27.8 pg (25.7-33.7); MCHC 32.4 g/dl (32.0-35.9); MEAN CELL VOLUME 85.9 fl (80-96); MEAN PLT VOLUME 7.6 fl (7.5-11.1); MONO % 5.5 % (3.8-10.2); NEUT % 80.7 % (42.8-82.8); PLATELET COUNT 338 K/MM3 (134-434); RDW 14.3 % (11.9-15.9); WHITE BLOOD COUNT 8.4 K/mm3 (4.0-10.0)
[2018-01-17 08:09] LABS: ALBUMIN 1.6 g/dl (3.4-5.0); ANION GAP 7 MMOL/L (8-16); BLOOD UREA NITROGEN 15 mg/dL (7-18); CALCIUM 8.3 mg/dL (8.5-10.1); CHLORIDE 104 mmol/L (98-107); CO2 26 mmol/L (21-32); GLUCOSE,RANDOM 86 mg/dL (74-106); MAGNESIUM 1.9 mg/dL (1.8-2.4); POTASSIUM 3.9 mmol/L (3.5-5.1); SGPT/ALT 104 U/L (13-61); SODIUM 137 mmol/L (136-145)
[2018-01-17 08:15] LABS: ALK PHOS 108 U/L (45-117); BILIRUBIN,TOTAL 0.4 mg/dL (0.2-1); CREATININE 0.8 mg/dL (0.55-1.3); PHOSPHOROUS 3.4 mg/dL (2.5-4.9); SGOT/AST 60 U/L (15-37); TOT PROT 4.8 g/dl (6.4-8.2)
--- NOTE | 2018-01-17 10:19 | PN ---
Progress Note (short form) - Note Progress Note: Breathing feels stable. No CP or SOB. Still with pain issues. No acute events overnight. Intake & Output 01/14/18 01/15/18 01/16/18 01/17/18 23:59 23:59 23:59 23:59 Intake Total 3980 1650 900 Output Total 3000 2300 3800 1800 Balance 980 -650 -2900 -1800 Last Vital Signs Temp Pulse Resp BP Pulse Ox 100.6 F H 84 20 104/45 97 01/17/18 06:00 01/17/18 06:00 01/17/18 06:00 01/17/18 06:00 01/16/18 21:00 Active Medications Acetaminophen (Tylenol -) 1,000 mg PO Q6H PRN PRN Reason: PAIN Last Admin: 01/16/18 16:16 Dose: 1,000 mg Albuterol/Ipratropium (Duoneb -) 1 amp NEB RTID SABINA Last Admin: 01/17/18 07:25 Dose: 1 amp Budesonide/Formoterol Fumarate (Symbicort 160/4.5mcg -) 2 puff IH BID [facility] Last Admin: 01/16/18 21:52 Dose: 2 puff Celecoxib (Celebrex -) 200 mg PO BID [facility] Last Admin: 01/10/18 11:10 Dose: 200 mg Docusate Sodium (Colace -) 100 mg PO BID PRN PRN Reason: CONSTIPATION Gabapentin (Neurontin -) 300 mg PO HS [facility] Last Admin: 01/16/18 21:49 Dose: 300 mg Piperacillin Sod/Tazobactam (Sod 4.5 gm/ Dextrose) 100 mls @ 200 mls/hr IVPB Q8H-IV SABINA; Protocol Last Admin: 01/17/18 02:22 Dose: 200 mls/hr Vancomycin HCl 1,250 mg/ (Dextrose) 250 mls @ 250 mls/2 hr IVPB BID@0000,1200 SABINA; Protocol Last Admin: 01/17/18 00:22 Dose: 250 mls/2 hr Sodium Chloride (Normal Saline -) 1,000 mls @ 75 mls/hr IV ASDIR S[facility]INA Last Admin: 01/16/18 21:53 Dose: 75 mls/hr Ibuprofen (Motrin -) 600 mg PO Q6H PRN PRN Reason: FEVER Last Admin: 01/12/18 23:26 Dose: 600 mg Nystatin (Mycostatin Cream -) 1 applic TP BID [facility] Last Admin: 01/16/18 21:53 Dose: 1 applic Ondansetron HCl (Zofran Injection) 4 mg IVPUSH Q6H PRN PRN Reason: NAUSEA AND/OR VOMITING Pantoprazole Sodium (Protonix -) 40 mg PO DAILY [facility] Last Admin: 01/16/18 09:23 Dose: 40 mg Polyethylene Glycol (Miralax (For Daily Use) -) 17 gm PO DAILY [facility] Last Admin: 01/16/18 09:26 Dose: Not Given Prednisone (Deltasone -) 5 mg PO DAILY [facility] Last Admin: 01/16/18 09:23 Dose: 5 mg Senna (Senna -) 1 tab PO HS [facility] Last Admin: 01/16/18 21:49 Dose: 1 tab Trazodone HCl (Desyrel -) 150 mg PO HS [facility] Last Admin: 01/16/18 21:49 Dose: 150 mg Gen: NAD at rest Heart: RRR Lung: scattered rhonchi Abd: soft, nontender Ext: no edema Laboratory Results - last 24 hr 01/17/18 01/17/18 01/17/18 07:00 07:00 07:00 WBC 8.4 RBC 2.80 L Hgb 7.8 L Hct 24.0 L MCV 85.9 MCH 27.8 MCHC 32.4 RDW 14.3 Plt Count 338 MPV 7.6 Absolute Neuts (auto) 6.8 Neutrophils % 80.7 Lymphocytes % 12.0 Monocytes % 5.5 Eosinophils % 1.6 Basophils % 0.2 Nucleated RBC % 0 ESR Sodium 137 Potassium 3.9 Chloride 104 Carbon Dioxide 26 Anion Gap 7 L BUN 15 Creatinine 0.8 Creat Clearance w eGFR > 60 Random Glucose 86 Calcium 8.3 L Phosphorus 3.4 Magnesium 1.9 Total Bilirubin 0.4 AST 60 H ALT 104 H Alkaline Phosphatase 108 C-Reactive Protein 11.2 H Cancelled Total Protein 4.8 L Albumin 1.6 L Blood Type Antibody Screen 01/17/18 01/17/18 07:00 07:00 WBC RBC Hgb Hct MCV MCH MCHC RDW Plt Count MPV Absolute Neuts (auto) Neutrophils % Lymphocytes % Monocytes % Eosinophils % Basophils % Nucleated RBC % ESR 92 H Sodium Potassium Chloride Carbon Dioxide Anion Gap BUN Creatinine Creat Clearance w eGFR Random Glucose Calcium Phosphorus Magnesium Total Bilirubin AST ALT Alkaline Phosphatase C-Reactive Protein Total Protein Albumin Blood Type A POSITIVE Antibody Screen Negative A/P Lumbar Compression Fractures s/p T12-L4 Laminectomies/T9-pelvis instrumentation/T9-S1 posterior lateral arthrodesis Acute COPD Exacerbation improved Chronic Hypoxic Respiratory Failure Pneumonia - ABX per ID - inhaled bronchodilators / Symbicort - Pain control - Incentive spirometry - O2 to keep SpO2 >90% - PO as tolerated - PT - DVT prophylaxis Dr Gross
[2018-01-17] MEDS ORDERED: PT OWN MED DRAWER 7, Y5N ONE (10:32)
[2018-01-17] MEDS: PANTOPRAZOLE 40 MG TABLET (FP) PO SCH (10:39)
[2018-01-17] MEDS: ACETAMINOPHEN 500 MG TABLET (FP) PO PRN ×2 (10:39→20:02)
[2018-01-17] MEDS: predniSONE 5 MG TABLET (UD) PO SCH (10:39)
[2018-01-17] MEDS: BUDESONIDE/FORMETEROL FUMARATE 160/4.5 mcg INHALER IH SCH ×2 (10:43→21:07)
[2018-01-17] MEDS: NYSTATIN 100,000 UNIT/GM TOPICAL CREAM 15 GM TUBE TP SCH ×2 (10:43→23:24)
[2018-01-17] MEDS: POLYETHYLENE GLYCOL 3350 119 GM BTL PO SCH (10:43)
--- NOTE | 2018-01-17 12:16 | PN ---
Physical Exam: SUBJECTIVE: Patient seen and examined at bedside feels well denies complaints going to OR today for wound exploration Called Daughter Selma this moping and gave her all updates. All questions answered OBJECTIVE: Vital Signs Period Temp Pulse Resp BP Sys/Hyman Pulse Ox Last 24 Hr 98.1 F-100.6 F 81-84 20-20 104-140/45-77 97 GENERAL:Alert and awake and orientated to person place and self HEAD: Normal with no signs of trauma. EYES: PERRL, extraocular movements intact ENT: Moist mucous membranes. NECK: Trachea midline, full range of motion, supple. LUNGS: Bilateral Rhonchi. scattered wheezing. less crackles than yesterday. able to speak in full sentences. HEART: Regular rate and rhythm, S1, S2 ABDOMEN: Soft, nontender, nondistended, normoactive bowel sounds, no guarding. Ventral hernia : holder in place with yellow cloudy urine and urine sediment EXTREMITIES: well-perfused, no edema. NEUROLOGICAL: Cranial nerves II through XII grossly intact. Normal speech. sensation intact in all extremities. strength 4/5 in bilateral lower extremities. Strength 5/5 in upper extremities. PSYCH: Normal mood, normal affect. SKIN:Warm, Dry, Wound had excoriation in the middle of the incision. Staple line dusky at some spots. Minimal drainage without any fluctuance or induration. Laboratory Results - last 24 hr 01/10/18 01/17/18 01/17/18:18 07:00 07:00 WBC 8.4 RBC 2.80 L Hgb 7.8 L Hct 24.0 L MCV 85.9 MCH 27.8 MCHC 32.4 RDW 14.3 Plt Count 338 MPV 7.6 Absolute Neuts (auto) 6.8 Neutrophils % 80.7 Lymphocytes % 12.0 Monocytes % 5.5 Eosinophils % 1.6 Basophils % 0.2 Nucleated RBC % 0 ESR Sodium 137 Potassium 3.9 Chloride 104 Carbon Dioxide 26 Anion Gap 7 L BUN 15 Creatinine 0.8 Creat Clearance w eGFR > 60 Random Glucose 86 Calcium 8.3 L Phosphorus 3.4 Magnesium 1.9 Total Bilirubin 0.4 AST 60 H ALT 104 H Alkaline Phosphatase 108 C-Reactive Protein 11.2 H Total Protein 4.8 L Albumin 1.6 L Blood Type Antibody Screen Crossmatch See Detail 01/17/18 01/17/1801/17/18 07:00 07:00 07:00 WBC RBC Hgb Hct MCV MCH MCHC RDW Plt Count MPV Absolute Neuts (auto) Neutrophils % Lymphocytes % Monocytes % Eosinophils % Basophils % Nucleated RBC % ESR 92 H Sodium Potassium Chloride Carbon Dioxide Anion Gap BUN Creatinine Creat Clearance w eGFR Random Glucose Calcium Phosphorus Magnesium Total Bilirubin AST ALT Alkaline Phosphatase C-Reactive Protein Cancelled Total Protein Albumin Blood Type A POSITIVE Antibody Screen Negative Crossmatch Active Medications Generic Name Dose Route Start Last Admin Trade Name Freq PRN Reason Stop Dose Admin Acetaminophen 1,000 mg 01/07/18 08:18 01/17/18 10:39 Tylenol - PO 1,000 mg Q6H PRN Administration PAIN Albuterol/Ipratropium 1 amp 01/07/18 14:00 01/17/18 07:25 Duoneb - NEB 1 amp RTID SABINA Administration Budesonide/Formoterol Fumarate 2 puff 01/07/18 10:00 01/17/18 10:43 Symbicort 160/4.5mcg - IH 2 puff BID S[facility]INA Administration Celecoxib 200 mg 01/07/18 10:00 01/10/18 11:10 Celebrex - PO 200 mg BID S[facility]INA Administration Docusate Sodium 100 mg 01/07/18 08:18 Colace - PO BID PRN CONSTIPATION Gabapentin 300 mg 01/07/18 22:00 01/16/18 21:49 Neurontin - PO 300 mg HS S[facility]INA Administration Piperacillin Sod/Tazobactam 100 mls @ 200 mls/hr 01/11/18 11:45 01/17/18 10: 39 Sod 4.5 gm/ Dextrose IVPB 200 mls/hr Q8H-IV S[facility]INA Administration Protocol Vancomycin HCl 1,250 mg/ 250 mls @ 250 mls/2 hr 01/11/18 13:14 01/17/18 00:22 Dextrose IVPB 250 mls/2 hr BID@0000,1200 SABINA Administration Protocol Sodium Chloride 1,000 mls @ 75 mls/hr 01/16/18 18:15 01/16/18 21:53 Normal Saline - IV 75 mls/hr ASDIR SABINA Administration Ibuprofen 600 mg 01/10/18 16:45 01/12/18 23:26 Motrin - PO 600 mg Q6H PRN Administration FEVER Nystatin 1 applic 01/15/18 12:00 09/18/18 10:43 Mycostatin Cream - TP 1 applic BID [facility] Administration Ondansetron HCl 4 mg 01/07/18 08:18 Zofran Injection IVPUSH Q6H PRN NAUSEA AND/OR VOMITING Pantoprazole Sodium 40 mg 01/07/18 10:00 01/17/18 10:39 Protonix - PO 40 mg DAILY [facility] Administration Polyethylene Glycol 17 gm 01/07/18 10:00 01/17/18 10:43 Miralax (For Daily Use) - PO Not Given DAILY [facility] Prednisone 5 mg 01/07/18 10:00 01/17/18 10:39 Deltasone - PO 5 mg DAILY [facility] Administration Senna 1 tab 01/07/18 22:00 01/16/18 21:49 Senna - PO 1 tab HS [facility] Administration Trazodone HCl 150 mg 01/07/18 22:00 01/16/18 21:49 Desyrel - PO 150 mg HS [facility] Administration ASSESSMENT/PLAN: 82 year old male with a hx of COPD, chronic urinary retention, spinal stenosis, and multiple falls is post op day #14 s/p T12-L4 laminectomies, T9-pelvis posterior instrumentation, T9-S1 industrial manufacturing technician-lateral arthrodesis, Autograft, Allograft, and Bone marrow aspirate. Sepsis/Low grade fever: secondary to UTI and hospital acquired pneumonia. Possible patient also has a bacteremia. Patient can also have wound infection or infected hardware at this point Blood cultures growing BCx. Second set done 3 days later also growing staph species repeat (third set) blood cultures pending-no growth so far Dr. Roberts to take patient to OR for wound exploration today. Concern with bacteremia as patient has hardware in his spine Will get echo to r/o endocarditis-no vegetations ID consult much appreciated Urine culture growing gram negative bacili-sensitive to zosyn continue vanco/zosyn for now as this should cover all sources of infection continue tylenol/advil for fever hold celebrex for now as this is also an NSAID Leukocytosis resolved Vanco trough today ESR 92 Lower back pain: L1, L3 compression fractures, Kyphosis, Spinal stenosis, Segmental instability, Progressive neurological decline POD #14 s/p T12-L4 laminectomies, T9-pelvis posterior instrumentation, T9-S1 industrial manufacturing technician-lateral arthrodesis, Autograft, Allograft, and Bone marrow aspirate. Patient tolerated the procedure well Pain is well controlled at this time Patient has not used Oxycodone since 01/10. Per family patient has AMS when takes trazodone and oxycodone together PT consult appreciated Incentive spirometry COPD not in exacerbation: Continue Duonebs Scheduled albuterol Nebs PRN Chest PT BID continue prednisone 5mg po daily patient on Dulera at home on symbicort here O2 PRN and while sleeping pulmonology consult appreciated Chronic Urinary Retention holder in for now To continue self catheterizing at home Transaminitis: improving could be due to Zosyn use RUQ US no acute pathology Chronic constipation: miralax history of AAA s/p stenting no issues at this time acute on chronic Anemia. blood loss 700ml in OR s/p 1 unit PRBC Hb Stable at this time continue to trend and transfuse PRN FEN IVF while NPO No electrolyte issues Regular diet Prophylaxis SCDs-No chemical PPx per spine surgery Protonix for GERD PT consult Case discussed with Dr. Woo Visit type - Emergency Visit Emergency Visit: Yes ED Registration Date: 01/03/18 Care time: The patient presented to the Emergency Department on the above date and was hospitalized for further evaluation of their emergent condition. - New Patient This patient is new to me today: No - Critical Care Critical Care patient: No
--- NOTE | 2018-01-17 12:20 | PN ---
Teaching Attending Note Name of Resident: Nahid Mata ATTENDING PHYSICIAN STATEMENT I saw and evaluated the patient. I reviewed the resident's note and discussed the case with the resident. I agree with the resident's findings and plan as documented. SUBJECTIVE: No complaints. OBJECTIVE: Vital Signs Period Temp Pulse Resp BP Sys/Hyman Pulse Ox Last 24 Hr 98.1 F-100.6 F 81-84 20-20 104-140/45-77 97 HEART: S1S2, RRR LUNGS: Scattered rhonchi ABDOMEN: Soft, non-tender, non-distended, normal BS EXTREMITIES: No edema Laboratory Results - last 24 hr 01/10/18 01/17/18 01/17/18 12:18 07:00 07:00 WBC 8.4 RBC 2.80 L Hgb 7.8 L Hct 24.0 L MCV 85.9 MCH 27.8 MCHC 32.4 RDW 14.3 Plt Count 338 MPV 7.6 Absolute Neuts (auto) 6.8 Neutrophils % 80.7 Lymphocytes % 12.0 Monocytes % 5.5 Eosinophils % 1.6 Basophils % 0.2 Nucleated RBC % 0 ESR Sodium 137 Potassium 3.9 Chloride 104 Carbon Dioxide 26 Anion Gap 7 L BUN 15 Creatinine 0.8 Creat Clearance w eGFR > 60 Random Glucose 86 Calcium 8.3 L Phosphorus 3.4 Magnesium 1.9 Total Bilirubin 0.4 AST 60 H ALT 104 H Alkaline Phosphatase 108 C-Reactive Protein 11.2 H Total Protein 4.8 L Albumin 1.6 L Blood Type Antibody Screen Crossmatch See Detail 01/17/18 01/17/18 01/17/18 07:00 07:00 07:00 WBC RBC Hgb Hct MCV MCH MCHC RDW Plt Count MPV Absolute Neuts (auto) Neutrophils % Lymphocytes % Monocytes % Eosinophils % Basophils % Nucleated RBC % ESR 92 H Sodium Potassium Chloride Carbon Dioxide Anion Gap BUN Creatinine Creat Clearance w eGFR Random Glucose Calcium Phosphorus Magnesium Total Bilirubin AST ALT Alkaline Phosphatase C-Reactive Protein Cancelled Total Protein Albumin Blood Type A POSITIVE Antibody Screen Negative Crossmatch Current Medications Generic Name Dose Route Start Last Admin Trade Name Freq PRN Reason Stop Dose Admin Acetaminophen 1,000 mg 01/07/18 08:18 01/17/18 10:39 Tylenol - PO 1,000 mg Q6H PRN Administration PAIN Albuterol/Ipratropium 1 amp 01/07/18 14:00 01/17/18 07:25 Duoneb - NEB 1 amp RTID SABINA Administration Budesonide/Formoterol Fumarate 2 puff 01/07/18 10:00 01/17/18 10:43 Symbicort 160/4.5mcg - IH 2 puff BID SABINA Administration Celecoxib 200 mg 01/07/18 10:00 01/10/18 11:10 Celebrex - PO 200 mg BID SABINA Administration Docusate Sodium 100 mg 01/07/18 08:18 Colace - PO BID PRN CONSTIPATION Gabapentin 300 mg 01/07/18 22:00 01/16/18 21:49 Neurontin - PO 300 mg HS SABINA Administration Piperacillin Sod/Tazobactam 100 mls @ 200 mls/hr 01/11/18 11:45 01/17/18 10: 39 Sod 4.5 gm/ Dextrose IVPB 200 mls/hr Q8H-IV SABINA Administration Protocol Vancomycin HCl 1,250 mg/ 250 mls @ 250 mls/2 hr 01/11/18 13:14 01/17/18 00:22 Dextrose IVPB 250 mls/2 hr BID@0000,1200 SABINA Administration Protocol Sodium Chloride 1,000 mls @ 75 mls/hr 01/16/18 18:15 01/16/18 21:53 Normal Saline - IV 75 mls/hr ASDIR SABINA Administration Ibuprofen 600 mg 01/10/18 16:45 01/12/18 23:26 Motrin - PO 600 mg Q6H PRN Administration FEVER Nystatin 1 applic 01/15/18 12:00 01/17/18 10:43 Mycostatin Cream - TP 1 applic BID SABINA Administration Ondansetron HCl 4 mg 01/07/18 08:18 Zofran Injection IVPUSH Q6H PRN NAUSEA AND/OR VOMITING Pantoprazole Sodium 40 mg 01/07/18 10:00 01/17/18 10:39 Protonix - PO 40 mg DAILY SABINA Administration Polyethylene Glycol 17 gm 01/07/18 10:00 01/17/18 10:43 Miralax (For Daily Use) - PO Not Given DAILY SABINA Prednisone 5 mg 01/07/18 10:00 01/17/18 10:39 Deltasone - PO 5 mg DAILY SABINA Administration Senna 1 tab 01/07/18 22:00 01/16/18 21:49 Senna - PO 1 tab HS SABINA Administration Trazodone HCl 150 mg 01/07/18 22:00 01/16/18 21:49 Desyrel - PO 150 mg HS SABINA Administration ASSESSMENT AND PLAN: This is an 82 year old man a history of COPD, chronic urinary retention, lumbar compression fractures with spinal stenosis who was admitted for lumbar spine surgery. 1. Sepsis secondary to E. coli UTI, pneumonia, MRSA bacteremia - Continue Zosyn, Vancomycin - Blood cultures 01/10 growing MRSA - Blood cultures 01/12 growing MRSA - Blood cultures 01/15 negative after 48 hrs - ESR 92, C-RP 11.2 - Temp 100.6 this morning - Wound I&D planned for today - Echo shows normal LV, normal LV systolic function, LVEF 60-65%, E/A reversal, normal RV systolic function, trace HI 2. Lumbar spinal stenosis, lumbar compression fractures, lumbar kyphosis - s/p T12-L4 laminectomies, T9-pelvis posterior instrumentation, T9-S1 posterolateral arthrodesis 01/03 - Pain control - Incentive spirometer - Ambulation - Continue physical therapy 3. Acute exacerbation of COPD - Improved - Continue Prednisone, Symbicort, DuoNeb, oxygen - Patient is steroid-dependent at home 4. Chronic hypoxic respiratory failure - Oxygen to maintain saturation >90% 5. Anemia - Likely acute blood loss and sepsis on chronic anemia - Transfused 1 unit PRBCs this admission - Hemoglobin stable at 7.8 - continue to monitor 6. Chronic urinary retention - Patient does self-catheterization at home 7. Constipation - Continue Colace, Senna, Miralax 8. Disposition - Will need subacute rehab at discharge
[2018-01-17] MEDS ORDERED: SUCCINYLCHOLINE CHLORIDE 200 MG/10 ML VIAL ONE (17:55)
[2018-01-17] MEDS ORDERED: PROPOFOL 20 ML ONE (17:55)
[2018-01-17] MEDS ORDERED: LIDOCAINE HCL/PF 2% SDV 5ML VIAL ONE (17:55)
[2018-01-17] MEDS ORDERED: fentaNYL CITRATE 250 MCG/5 ML VIAL ONE (17:55)
[2018-01-17] MEDS ORDERED: ROCURONIUM BROMIDE 50 MG/5 ML VIAL ONE (17:56)
[2018-01-17] MEDS ORDERED: PIPERACILLIN/TAZOBACTAM 2.25 GM VIAL IVPB ONE (18:07)
[2018-01-17] MEDS ORDERED: ePHEDrine SULFATE 50 MG/1 ML AMPULE ONE (18:15)
[2018-01-17] MEDS: SODIUM CHLORIDE 1,000 ML IV SCH (19:11)
[2018-01-17] MEDS ORDERED: ONDANSETRON 4 MG/2 ML VIAL IVPUSH PRN ×2 (19:22→19:42)
[2018-01-17] MEDS ORDERED: PROMETHAZINE HCL 25 MG/1 ML VIAL IVPB PRN (19:22)
[2018-01-17] MEDS ORDERED: oxyCODONE HCL 5 MG TABLET PO PRN ×2 (19:22→19:40)
[2018-01-17] MEDS ORDERED: DOCUSATE SODIUM 100 MG CAPSULE (FP) PO PRN (19:42)
--- NOTE | 2018-01-17 19:50 | PN ---
Progress Note (short form) - Note Progress Note: I and D Spinal deep infection Entire wound. PLAN Blood 2 to 3 units over 24 hrs General nursing Antibiotics as per infectious disease team Nutritional support PT Respiratory toilet Mobilize in bed Take back to OR in 48hrs
--- NOTE | 2018-01-17 19:57 | OP ---
Operative Note - Note: Operative Date: 01/17/18 Pre-Operative Diagnosis: deep wound infection s/p multilevel fusion Operation: Incision, drainage and washout of deep thoracic and lumbar spine Post-Operative Diagnosis: Same as Pre-op Surgeon: Mihir Roberts Simulation Software Engineer: Charu Huffman Anesthesiologist/EXPERIMENTAL MECHANIC ELECTRICAL: Mehul Wilson Anesthesia: General Estimated Blood Loss (mls): 250 Drains, Volume Out (mls): 200 (urine-holder) Fluid Volume Replaced (mls): 2,500 Operative Report Dictated: Yes
--- NOTE | 2018-01-17 19:58 | SURG ---
Surgery Living Advisor Note Living Advisor: Charu Huffman PA-C Date of Service: 01/17/18 Diagnosis: deep thoracic and lumbar spine infection s/p multilevel fusion Procedure: Incision, drainage and washout of deep thoracic and lumbar spine I was present for the entirety of the operative procedure. For further detail, please refer to operative report. Visit type - Case Type Case Type: Scheduled - Emergency Emergency Visit: No - New patient This patient is new to me today: Yes Date on this admission: 01/17/18
[2018-01-17] MEDS ORDERED: ACETAMINOPHEN INJECTION 100 ML IVPB ONE (20:02)
[2018-01-17] MEDS: traZODone HCL 50 MG TABLET (FP) PO SCH (21:07)
[2018-01-17] MEDS: CHLORHEXIDINE GLUCONATE 4% CLEANSER FOR DECOLONIZATION TP SCH (21:09)
[2018-01-17] MEDS: SENNOSIDES 8.6MG TABLET (FP) PO SCH (21:10)
--- NOTE | 2018-01-17 21:47 | PN ---
Physical Exam: SUBJECTIVE: Patient seen and examined at bedside in ICU. Pt is s/p I&D of deep thoracic and lumbar spine (POD#0). He was initially here for T12-L4 laminectomies on 01/03/18. He currently feels well and only has pain in his back when he moves. He denies CP, SOB, N/V/F/C, abd pain, numbness or tingling in extremities. He is passing flatus and is hungry. He is moving all extremities at this time as well. For this I&D: EBL: 250 ml IVF replaced: 2.5 L OBJECTIVE: Vital Signs Temperature 97.5 F L 01/17/18 20:30 Pulse Rate 86 01/17/18 20:30 Respiratory Rate 14 01/17/18 20:30 Blood Pressure 106/49 01/17/18 20:30 O2 Sat by Pulse Oximetry (%) 100 01/17/18 20:30 GENERAL: The patient is awake, alert, and fully oriented, in no acute distress. HEAD: Normal with no signs of trauma. EYES: extraocular movements intact, sclera anicteric, conjunctiva clear. ENT: Ears normal, nares patent LUNGS: Coarse breath sounds b/l HEART: Regular rate and rhythm, S1, S2 ABDOMEN: Soft, nontender, nondistended, normoactive bowel sounds EXTREMITIES: warm, well-perfused, no edema. Moving all extremities. NEUROLOGICAL: Cranial nerves II through XII grossly intact. Normal speech, gait not observed. Sensation to light touch intact in b/l UE and LE. PSYCH: Normal mood, normal affect. SKIN: Warm, dry Laboratory Results - last 24 hr 01/10/18 01/17/18 01/17/18 12:18 07:00 07:00 WBC 8.4 RBC 2.80 L Hgb 7.8 L Hct 24.0 L MCV 85.9 MCH 27.8 MCHC 32.4 RDW 14.3 Plt Count 338 MPV 7.6 Absolute Neuts (auto) 6.8 Neutrophils % 80.7 Lymphocytes % 12.0 Monocytes % 5.5 Eosinophils % 1.6 Basophils % 0.2 Nucleated RBC % 0 ESR Sodium 137 Potassium 3.9 Chloride 104 Carbon Dioxide 26 Anion Gap 7 L BUN 15 Creatinine 0.8 Creat Clearance w eGFR > 60 Random Glucose 86 Calcium 8.3 L Phosphorus 3.4 Magnesium 1.9 Total Bilirubin 0.4 AST 60 H ALT 104 H Alkaline Phosphatase 108 C-Reactive Protein 11.2 H Total Protein 4.8 L Albumin 1.6 L Vancomycin Pre-Dose Blood Type Antibody Screen Crossmatch See Detail Crossmatch IS Only 01/17/18 01/17/18 01/17/18 07:00 07:00 07:00 WBC RBC Hgb Hct MCV MCH MCHC RDW Plt Count MPV Absolute Neuts (auto) Neutrophils % Lymphocytes % Monocytes % Eosinophils % Basophils % Nucleated RBC % ESR 92 H Sodium Potassium Chloride Carbon Dioxide Anion Gap BUN Creatinine Creat Clearance w eGFR Random Glucose Calcium Phosphorus Magnesium Total Bilirubin AST ALT Alkaline Phosphatase C-Reactive Protein Cancelled Total Protein Albumin Vancomycin Pre-Dose Blood Type A POSITIVE Antibody Screen Negative Crossmatch Crossmatch IS Only See Detail 01/17/18 11:49 WBC RBC Hgb Hct MCV MCH MCHC RDW Plt Count MPV Absolute Neuts (auto) Neutrophils % Lymphocytes % Monocytes % Eosinophils % Basophils % Nucleated RBC % ESR Sodium Potassium Chloride Carbon Dioxide Anion Gap BUN Creatinine Creat Clearance w eGFR Random Glucose Calcium Phosphorus Magnesium Total Bilirubin AST ALT Alkaline Phosphatase C-Reactive Protein Total Protein Albumin Vancomycin Pre-Dose 20.30 Blood Type Antibody Screen Crossmatch Crossmatch IS Only Active Medications Generic Name Dose Route Start Last Admin Trade Name Freq PRN Reason Stop Dose Admin Acetaminophen 1,000 mg 01/17/18 19:42 01/17/18 20:02 Tylenol - PO 1,000 mg Q6H PRN Administration PAIN LEVEL 1 - 3 Albuterol/Ipratropium 1 amp 01/17/18 20:00 01/17/18 21:14 Duoneb - NEB 1 amp RTID SABINA Administration Budesonide/Formoterol Fumarate 2 puff 01/17/18 22:00 01/17/18 21:07 Symbicort 160/4.5mcg - IH 2 puff BID SABINA Administration Chlorhexidine Gluconate 1 applic 01/17/18 22:00 01/17/18 21:09 Hibiclens For Decolonization - TP 1 applic HS SABINA Administration Docusate Sodium 100 mg 01/17/18 19:42 Colace - PO Q12H PRN CONSTIPATION Fentanyl 25 mcg 01/17/18 19:22 Sublimaze Injection - IVPUSH [id number] PRN PAIN-PACU ORDER X 4 DOSES ONLY Sodium Chloride 1,000 mls @ 75 mls/hr 01/17/18 19:42 Normal Saline - IV ASDIR SABINA Vancomycin HCl 1 gm in 200 mls @ 250 mls/2 hr 01/18/18 00:00 Vancomycin 1 Gm Premix - IVPB BID@0000,1200 [facility] Protocol Piperacillin Sod/Tazobactam 100 mls @ 200 mls/hr 01/18/18 02:00 Sod 4.5 gm/ Dextrose IVPB Q8H-IV [facility] Protocol Morphine Sulfate 4 mg 01/17/18 19:42 Morphine Sulfate IVPUSH Q3H PRN PAIN LEVEL 7 - 10 Mupirocin 1 applic 01/17/18 22:00 Bactroban Ointment (For Decolonization) - NS 01/22/18 21:59 BID [facility] Nystatin 1 applic 01/17/18 22:00 Mycostatin Cream - TP BID [facility] Ondansetron HCl 4 mg 01/17/18 19:22 Zofran Injection IVPUSH 01/18/18 03:00 Q6H PRN NAUSEA AND/OR VOMITING Ondansetron HCl 4 mg 01/17/18 19:42 Zofran Injection IVPUSH Q6H PRN NAUSEA AND/OR VOMITING Oxycodone HCl 5 mg 01/17/18 19:22 Roxicodone - PO 01/18/18 19:21 Q4H PRN PAIN LEVEL 1-5 Oxycodone HCl 10 mg 01/17/18 19:40 Roxicodone - PO Q4H PRN PAIN LEVEL 4 - 6 Pantoprazole Sodium 40 mg 01/18/18 10:00 Protonix - PO DAILY [facility] Polyethylene Glycol 17 gm 01/18/18 10:00 Miralax (For Daily Use) - PO DAILY [facility] Promethazine HCl 12.5 mg 01/17/18 19:22 Phenergan Injection - IVPB Q6H PRN NAUSEA-FOR RESCUE AFTER 15 MIN Senna 1 tab 01/17/18 22:00 01/17/18 21:10 Senna - PO 1 tab HS SABINA Administration Trazodone HCl 150 mg 01/17/18 22:00 01/17/18 21:07 Desyrel - PO 150 mg HS SABINA Administration ASSESSMENT/PLAN: 82 y/o M w/PMH of COPD, chronic urinary retention, aortic aneurysm intially admitted to the ICU post-op s/p T12-L4 laminectomies, T9-pelvis PISF on 01/03/18 now returns to the ICU s/p I&D of T and L spine (POD #0). I&D of thoracic and lumbar spine POD #0 (01/17/18) Vertebral body compression s/p T12-L4 laminectomies, T9-pelvis PISF 01/03/18 COPD Anemia Chronic urinary retention Pruritis secondary to analgesics and sedatives -To return to OR within 48 hours -Ordered for 3 units PRBC. Will check CBC after 2nd unit and reassess need for third unit. Monitor H/H. 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 - New Patient This patient is new to me today: No - Critical Care Critical Care patient: Yes Total Critical Care Time (in minutes): 35 Critical Care Statement: The care of this patient involved high complexity decision making to prevent further life threatening deterioration of the patient 's condition and/or to evaluate & treat vital organ system(s) failure or risk of failure.
[2018-01-17] MEDS: MUPIROCIN 2% TOPICAL OINTMENT FOR DECOLONIZATION NS SCH (23:24)
[2018-01-18] MEDS: VANCOMYCIN 1 GM PREMIX - 1 GM/200 ML BAG IVPB SCH ×3 (01:18→23:53)
[2018-01-18] MEDS ORDERED: PIPERACILLIN/TAZOBACTAM 4.5 GM VIAL IVPB ONE ×3 (01:20→16:39)
[2018-01-18] MEDS ORDERED: DEXTROSE 5%-WATER 100 ML IVPB ONE ×3 (01:20→16:40)
[2018-01-18] MEDS: PIPERACILLIN/TAZOB 4.5 GM 4.5 GM in DEXTROSE 5%-WATER 100 ML IVPB SCH ×3 (01:20→17:08)
[2018-01-18] MEDS ORDERED: VANCOMYCIN 1 GM PREMIX - 1 GM/200 ML BAG IVPB SCH ×2 (02:00)
[2018-01-18] MEDS: SODIUM CHLORIDE 1,000 ML IV SCH ×2 (02:18→22:00)
[2018-01-18 06:36] LABS: HEMATOCRIT 27.4 % (35.4-49); HEMOGLOBIN 9.3 GM/dL (11.7-16.9); MCH 28.8 pg (25.7-33.7); MCHC 33.8 g/dl (32.0-35.9); MEAN CELL VOLUME 85.1 fl (80-96); MEAN PLT VOLUME 7.4 fl (7.5-11.1); PLATELET COUNT 378 K/MM3 (134-434); RBC 3.22 M/mm3 (4.00-5.60); RDW 13.9 % (11.9-15.9); WHITE BLOOD COUNT 8.9 K/mm3 (4.0-10.0)
[2018-01-18 06:57] LABS: CHLORIDE 103 mmol/L (98-107); POTASSIUM 3.7 mmol/L (3.5-5.1); SODIUM 136 mmol/L (136-145)
[2018-01-18 07:03] LABS: ALBUMIN 1.7 g/dl (3.4-5.0); ALK PHOS 106 U/L (45-117); ANION GAP 7 MMOL/L (8-16); BLOOD UREA NITROGEN 16 mg/dL (7-18); CALCIUM 8.3 mg/dL (8.5-10.1); CO2 26 mmol/L (21-32); CREATININE 0.7 mg/dL (0.55-1.3); GLUCOSE,RANDOM 102 mg/dL (74-106); MAGNESIUM 1.8 mg/dL (1.8-2.4); PHOSPHOROUS 3.3 mg/dL (2.5-4.9); SGOT/AST 42 U/L (15-37); SGPT/ALT 90 U/L (13-61); TOT PROT 4.9 g/dl (6.4-8.2)
[2018-01-18] MEDS ORDERED: POTASSIUM CHLORIDE TABS 20 MEQ TABLET.ER (FP) PO ONE (07:23)
--- NOTE | 2018-01-18 07:43 | PN ---
Progress Note (short form) - Note Progress Note: POD #15 s/p T12-L4 laminectomies. 2. T9-pelvis posterior instrumentation. 3. T9-S1 rac specialist-lateral arthrodesis. 4. Autograft. 5. Allograft. 6. Bone marrow aspirate POD #1 s/p Thoracolumbar wound exploration, debridement, wound culture, pulse irrigation No acute events since surgery per RN notes. Resting in position of comfort at this time. Adequate pain control via prn meds. Received 2 PRBC post-operatively with a 3rd one ordered for noon today if needed. Remains in Zosyn. Last Vital Signs Temp Pulse Resp BP Pulse Ox 98.6 F 84 20 146/58 91 L 18 06:00 01/18/18 06:00 01/18/18 06:00 01/18/18 06:00 18 21:50 CBC, BMP 18 05:30 18 05:30 Gen: nad Back: dressing intact/saturated (expected) --> DO NOT REMOVE : holder to gravity LE: SCDs bilat. Soft. NT Neuro: GMNVI all extremities Problem List - Problems (1) S/P spinal fusion Assessment/Plan: DO NOT REMOVE PACKING/dressing. Expect a lot of saturation...just reinforce To return to OR 18 Make NPO after midnight except PO meds Monitor H/H and transfuse PRN Pain management as ordered IV ABX per ID Incentive spirometer Tylenol 650mg for fever > 100.3F DVT PPX Above plan discussed with Dr. Roberts and agrees. Code(s): Z98.1 - ARTHRODESIS STATUS (2) MRSA (methicillin resistant staph aureus) culture positive Code(s): Z22.322 - CARRIER OR SUSPECTED CARRIER OF METHICILLIN RESIS STAPH
--- NOTE | 2018-01-18 07:52 | OP ---
DATE OF OPERATION: DATE OF DICTATION: 01/17/2018 SURGEON: Mihir Roberts MD CLERICAL ADJUDICATOR: AICHA Blackwell PREOPERATIVE DIAGNOSIS: Epidural abscess with extensive sepsis following a previous thoracolumbar stabilization. POSTOPERATIVE DIAGNOSIS: Epidural abscess with extensive sepsis following a previous thoracolumbar stabilization. OPERATION PERFORMED: Removal of all sutures and alma, extensive muscle debridement, incision drainage washout, and resection of bone. ANESTHESIA: General. DESCRIPTION OF PROCEDURE: The patient correctly identified, placed prone on the Hugo table. Timeout was called. The prominence was readily noted. The entire wound was opened by opening alma and removing all sutures. Extensive necrosis and sepsis encountered. Multiple specimens were sent for culture and sensitivity. Extensive debridement of the soft tissue bed was performed employing the principles of the 4 C's, color, circulation, contractility, and consistency. We excised muscle until the above four mentioned C's were identified and appropriate. The skin edges were excised where there was necrosis. The bone that was necrotic was excised. Once this had been performed, a 5 L saline washout was performed. All loose purulent material was resected and removed. The tissue was much improved thereafter. Once this had been performed, a Betadine scrub where the tissues were washed to get rid of biofilm on these rods and appropriately run down to the soft tissue muscle bed. The dura was identified and not violated. Once this had been performed, a repeat washout of another 5 L of saline. The wound was then closed as follows, sterile Kerlix bandage soaked in 50/50, that is 50 Betadine solution and 50 saline, was laid down evenly in the planes between the muscles and the bed, and the skin was then covered over and sutured approximated completely with interrupted combination nylon and Vicryl sutures. A sterile dressing with an Ioban applied. PLAN: For patient to be placed in the ICU, appropriate general medical measures to be applied, nutrition to be concentrated on, and patient to receive 2 pints of blood this evening. I will bring this patient back to the operating room in 48 hours for removal of the packs hopeful delayed primary closure or reapplication of an appropriate Betadine pack or possible wound VAC. MD SAMARA [id number]
[2018-01-18] MEDS: ALBUTEROL SO4 2.5/IPRATROPIUM 0.5 INH SOL 3 ML VIAL.NEB. NEB SCH ×3 (08:00→21:40)
--- NOTE | 2018-01-18 08:42 | PN ---
Physical Exam: SUBJECTIVE: Patient is a 82 y/o male with a history of urinary retention, COPD, aortic aneyursm , s/p T 12- L4 laminectomy and t9-pelvis PISF on 01/03 who is her for POD 1 Thoracolumbar wound exploration, debridement, wound culture and pulse irrigation. Patient received two units of blood overnight. Patient reports he is in pain but would not like any more medication. Patient is cranky this morning and did not want to talk much. OBJECTIVE: Vital Signs Temperature 98.6 F 01/18/18 06:00 Pulse Rate 96 H 01/18/18 07:50 Respiratory Rate 21 01/18/18 07:50 Blood Pressure 132/79 01/18/18 07:50 O2 Sat by Pulse Oximetry (%) 91 L 01/17/18 21:50 GENERAL: The patient is awake, alert, and fully oriented, in no acute distress. Patient refused physical exam today CBCD WBC 8.9 K/mm3 (4.0-10.0) 01/18/18 05:30 RBC 3.22 M/mm3 (4.00-5.60) L 01/18/18 05:30 Hgb 9.3 GM/dL (11.7-16.9) L 01/18/18 05:30 Hct 27.4 % (35.4-49) L 01/18/18 05:30 MCV 85.1 fl (80-96) 01/18/18 05:30 MCHC 33.8 g/dl (32.0-35.9) 01/18/18 05:30 RDW 13.9 % (11.9-15.9) 01/18/18 05:30 Plt Count 378 K/MM3 (134-434) 01/18/18 05:30 MPV 7.4 fl (7.5-11.1) L 01/18/18 05:30 CMP Sodium 136 mmol/L (136-145) 01/18/18 05:30 Potassium 3.7 mmol/L (3.5-5.1) 01/18/18 05:30 Chloride 103 mmol/L (98-107) 01/18/18 05:30 Carbon Dioxide 26 mmol/L (21-32) 01/18/18 05:30 Anion Gap 7 MMOL/L (8-16) L 01/18/18 05:30 BUN 16 mg/dL (7-18) 01/18/18 05:30 Creatinine 0.7 mg/dL (0.55-1.3) 01/18/18 05:30 Creat Clearance w eGFR > 60 (>60) 01/18/18 05:30 Calcium 8.3 mg/dL (8.5-10.1) L 01/18/18 05:30 Total Bilirubin 1.0 mg/dL (0.2-1) 01/18/18 05:30 AST 42 U/L (15-37) H 01/18/18 05:30 ALT 90 U/L (13-61) H 01/18/18 05:30 Alkaline Phosphatase 106 U/L (45-117) 01/18/18 05:30 Total Protein 4.9 g/dl (6.4-8.2) L 01/18/18 05:30 Albumin 1.7 g/dl (3.4-5.0) L 01/18/18 05:30 Active Medications Acetaminophen (Tylenol -) 1,000 mg PO Q6H PRN PRN Reason: PAIN LEVEL 1 - 3 Last Admin: 01/17/18 20:02 Dose: 1,000 mg Albuterol/Ipratropium (Duoneb -) 1 amp NEB RTID [facility] Last Admin: 01/18/18 08:00 Dose: 1 amp Budesonide/Formoterol Fumarate (Symbicort 160/4.5mcg -) 2 puff IH BID [facility] Last Admin: 01/17/18 21:07 Dose: 2 puff Chlorhexidine Gluconate (Hibiclens For Decolonization -) 1 applic TP HS [facility] Last Admin: 01/17/18 21:09 Dose: 1 applic Docusate Sodium (Colace -) 100 mg PO Q12H PRN PRN Reason: CONSTIPATION Fentanyl (Sublimaze Injection -) 25 mcg IVPUSH [id number] PRN PRN Reason: PAIN-PACU ORDER X 4 DOSES ONLY Sodium Chloride (Normal Saline -) 1,000 mls @ 75 mls/hr IV ASDIR [facility] Last Admin: 01/18/18 02:18 Dose: 75 mls/hr Vancomycin HCl (Vancomycin 1 Gm Premix -) 1 gm in 200 mls @ 250 mls/2 hr IVPB BID@0000,1200 [facility]; Protocol Last Admin: 01/18/18 01:18 Dose: 250 mls/2 hr Piperacillin Sod/Tazobactam (Sod 4.5 gm/ Dextrose) 100 mls @ 200 mls/hr IVPB Q8H-IV [facility]; Protocol Last Admin: 01/18/18 01:20 Dose: 200 mls/hr Morphine Sulfate (Morphine Sulfate) 4 mg IVPUSH Q3H PRN PRN Reason: PAIN LEVEL 7 - 10 Mupirocin (Bactroban Ointment (For Decolonization) -) 1 applic NS BID [facility] Stop: 01/22/18 21:59 Last Admin: 01/17/18 23:24 Dose: 1 applic Nystatin (Mycostatin Cream -) 1 applic TP BID [facility] Last Admin: 01/17/18 23:24 Dose: Not Given Ondansetron HCl (Zofran Injection) 4 mg IVPUSH Q6H PRN PRN Reason: NAUSEA AND/OR VOMITING Oxycodone HCl (Roxicodone -) 5 mg PO Q4H PRN PRN Reason: PAIN LEVEL 1-5 Stop: 01/18/18 19:21 Oxycodone HCl (Roxicodone -) 10 mg PO Q4H PRN PRN Reason: PAIN LEVEL 4 - 6 Pantoprazole Sodium (Protonix -) 40 mg PO DAILY [facility] Polyethylene Glycol (Miralax (For Daily Use) -) 17 gm PO DAILY [facility] Potassium Chloride (K-Dur -) 40 meq PO ONCE ONE Stop: 01/18/18 07:24 Promethazine HCl (Phenergan Injection -) 12.5 mg IVPB Q6H PRN PRN Reason: NAUSEA-FOR RESCUE AFTER 15 MIN Senna (Senna -) 1 tab PO [facility] Last Admin: 01/17/18 21:10 Dose: 1 tab Trazodone HCl (Desyrel -) 150 mg PO [facility] Last Admin: 01/17/18 21:07 Dose: 150 mg ASSESSMENT/PLAN: Patient is a 82 y/o male with a history of urinary retention, COPD, aortic aneyursm , s/p T 12- L4 laminectomy and t9-pelvis PISF on 01/03 who is her for POD 1 Thoracolumbar wound exploration, debridement, wound culture and pulse irrigation. Neuro s/p Thoracolumbar wound exploration, debridement, wound culture and pulse irrigation - patient can eat today, breakfast tomorrow and then will be made NPO - patient to return to OR tomorrow evening (01/19) for further debridement per Dr. Roberts - morphine 4mg q3h prn - oxycodone 5mg pain 1-5 or 10 mg pain 4-6 prn - do not remove packing or dressing - received two units of blood post op, hgb etta to 9.3 - third unit on hold if needed. f/u CBC at 8 pm Insomnia - Trazodone 150 mg po hs [facility] Cardio - Echo: LV normal, systolic fxn normal, EF: 60-65% - abd US: AAA with stenting, Pulm COPD - duoneb 1 amp - symbicort - continue to use incentive spirometer - CXR: new atelectasis or infiltrate at LLB on 01/14, on abx for possible pna GI Nausea 2/2 to infection and pain medication - promethazine 12.5 - pantoprazole 40 mg francisco for ppx - zofran 4mg q6h Transaminitis possibly 2/2 to Zosyn use - continue to trend AST/ALT - trending down - abd US: mild hepatomegaly, moderate distended gallbladder Constipation - Miralax and docusate daily Infectious Disease MRSA bacteremia - Vancomycin 1 gm ( day 8) - Zosyn 4.5 gm - blood cultures 01/12: MRSA, repeat blood cultures 01/15 no growth yet - Urine CX: E. Coli - tylenol 650 mg for fever > 100.3 - f/u Vanc trough, f/u wound cultures - f/u Dr. Lopez Hematology DVT ppx - SCD's FEN - k repleted, keep >4 - NS @ 75 Dispo: monitor in ICU until post op Visit type - Emergency Visit Emergency Visit: No - New Patient This patient is new to me today: Yes Date on this admission: 01/18/18 - Critical Care Critical Care patient: Yes Total Critical Care Time (in minutes): 40 Critical Care Statement: The care of this patient involved high complexity decision making to prevent further life threatening deterioration of the patient 's condition and/or to evaluate & treat vital organ system(s) failure or risk of failure.
--- NOTE | 2018-01-18 08:51 | PN ---
Progress Note (short form) - Note Progress Note: s/p operative washout yesterday awake and alert in ICU no fevers today Vital Signs Period Temp Pulse Resp BP Sys/Hyman Pulse Ox Last 24 Hr 97.5 F-98.9 F 68-98 14-21 93-146/46-96 91-100 cor-rrr lungs decreased bs at bases abd soft,nt ext no edema +holder CBC, BMP 01/18/18 05:30 01/18/18 05:30 Microbiology 01/15/18 06:30 Blood - Peripheral Venous Blood Culture - Preliminary NO GROWTH OBTAINED AFTER 72 HOURS, INCUBATION TO CONTINUE FOR 2 DAYS. 01/12/18 23:40 Blood - Peripheral Venous Blood Culture - Final S Aureus 01/12/18 23:40 Blood - Peripheral Venous Blood Culture - Preliminary Staphylococcus Latex Coag Pos 01/15/18 09:00 Blood - Peripheral Venous Blood Culture - Preliminary NO GROWTH OBTAINED AFTER 48 HOURS, INCUBATION TO CONTINUE FOR 3 DAYS. 01/10/18 19:00 Blood - Peripheral Venous Blood Culture - Final S Aureus 01/10/18 18:00 Blood - Peripheral Venous Blood Culture - Final S Aureus 01/10/18 15:00 Urine - Urine - Catheterized Urine Culture - Final Escherichia Coli a/p MRSA bacteremia ecoli UTI surgical wound infection infected hardware- s/p washout 01/17 s/p laminectomy T12 to L4 -9/4 f/u operative cultures repeat blood cultures are negative continue vanco/zosyn pending operative cultures for repeat washout tomorrow will require fpc abx and lifelong suppressive antibiotics to follow follow labs, vancomycin trough Problem List - Problems (1) Fever Code(s): R50.9 - FEVER, UNSPECIFIED (2) Status post laminectomy Code(s): Z98.890 - OTHER SPECIFIED POSTPROCEDURAL STATES
[2018-01-18] MEDS: PANTOPRAZOLE 40 MG TABLET (FP) PO SCH (09:29)
[2018-01-18] MEDS: BUDESONIDE/FORMETEROL FUMARATE 160/4.5 mcg INHALER IH SCH (09:29)
[2018-01-18] MEDS: morphine SULFATE 4 MG/ML VIAL IVPUSH PRN ×3 (09:30→22:18)
[2018-01-18] MEDS: ACETAMINOPHEN 500 MG TABLET (FP) PO PRN ×2 (09:32→15:51)
--- NOTE | 2018-01-18 09:47 | PN ---
Physical Exam: SUBJECTIVE: Patient seen and examined at bedside no complaints this morning has back pain with movement patient went to the OR yesterday and had pulse irrigation/washout of the wound. Infected tissue and purulence was found. OBJECTIVE: Vital Signs Period Temp Pulse Resp BP Sys/Hyman Pulse Ox Last 24 Hr 97.5 F-98.9 F 68-98 14-21 93-146/46-96 91-100 GENERAL:Alert and awake and orientated to person place and self HEAD: Normal with no signs of trauma. EYES: PERRL, extraocular movements intact ENT: Moist mucous membranes. NECK: Trachea midline, full range of motion, supple. LUNGS: scattered rhonchi without wheezing. HEART: Regular rate and rhythm, S1, S2 ABDOMEN: Soft, nontender, nondistended, normoactive bowel sounds, no guarding. Ventral hernia : holder in place EXTREMITIES: well-perfused, no edema. NEUROLOGICAL: Cranial nerves II through XII grossly intact. Normal speech. sensation intact in all extremities. strength 4/5 in bilateral lower extremities. Strength 5/5 in upper extremities. PSYCH: Normal mood, normal affect. SKIN:Warm, Dry, wound dressing intact Laboratory Results - last 24 hr 01/10/18 01/17/18 01/17/18 12:18 07:00 07:00 WBC RBC Hgb Hct MCV MCH MCHC RDW Plt Count MPV ESR 92 H Sodium Potassium Chloride Carbon Dioxide Anion Gap BUN Creatinine Creat Clearance w eGFR Random Glucose Calcium Phosphorus Magnesium Total Bilirubin AST ALT Alkaline Phosphatase Total Protein Albumin Vancomycin Pre-Dose Blood Type A POSITIVE Antibody Screen Negative Crossmatch See Detail See Detail Crossmatch IS Only See Detail 01/17/18 01/18/18 01/18/18 11:49 05:30 05:30 WBC 8.9 RBC 3.22 L Hgb 9.3 L Hct 27.4 L MCV 85.1 MCH 28.8 MCHC 33.8 RDW 13.9 Plt Count 378 MPV 7.4 L ESR Sodium 136 Potassium 3.7 Chloride 103 Carbon Dioxide 26 Anion Gap 7 L BUN 16 Creatinine 0.7 Creat Clearance w eGFR > 60 Random Glucose 102 Calcium 8.3 L Phosphorus 3.3 Magnesium 1.8 Total Bilirubin 1.0 AST 42 H ALT 90 H Alkaline Phosphatase 106 Total Protein 4.9 L Albumin 1.7 L Vancomycin Pre-Dose 20.30 Blood Type Antibody Screen Crossmatch Crossmatch IS Only Active Medications Generic Name Dose Route Start Last Admin Trade Name Freq PRN Reason Stop Dose Admin Acetaminophen 1,000 mg 01/17/18 19:42 01/18/18 09:32 Tylenol - PO 1,000 mg Q6H PRN Administration PAIN LEVEL 1 - 3 Albuterol/Ipratropium 1 amp 01/17/18 20:00 01/18/18 08:00 Duoneb - NEB 1 amp RTID SABINA Administration Budesonide/Formoterol Fumarate 2 puff 01/17/18 22:00 01/18/18 09:29 Symbicort 160/4.5mcg - IH 2 puff BID SABINA Administration Chlorhexidine Gluconate 1 applic 01/17/18 22:00 01/17/18 21:09 Hibiclens For Decolonization - TP 1 applic HS SABINA Administration Docusate Sodium 100 mg 01/17/18 19:42 Colace - PO Q12H PRN CONSTIPATION Fentanyl 25 mcg 01/17/18 19:22 Sublimaze Injection - IVPUSH [id number] PRN PAIN-PACU ORDER X 4 DOSES ONLY Sodium Chloride 1,000 mls @ 75 mls/hr 01/17/18 19:42 01/18/18 02:18 Normal Saline - IV 75 mls/hr ASDIR SABINA Administration Vancomycin HCl 1 gm in 200 mls @ 250 mls/2 hr 01/18/18 00:00 01/18/18 01:18 Vancomycin 1 Gm Premix - IVPB 250 mls/2 hr BID@0000,1200 SABINA Administration Protocol Piperacillin Sod/Tazobactam 100 mls @ 200 mls/hr 01/18/18 02:00 01/18/18 09: 29 Sod 4.5 gm/ Dextrose IVPB 200 mls/hr Q8H-IV SABINA Administration Protocol Morphine Sulfate 4 mg 01/17/18 19:42 01/18/18 09:30 Morphine Sulfate IVPUSH 4 mg Q3H PRN Administration PAIN LEVEL 7 - 10 Mupirocin 1 applic 01/17/18 22:00 01/17/18 23:24 Bactroban Ointment (For Decolonization) - NS 01/22/18 21:59 1 applic BID SABINA Administration Nystatin 1 applic 01/17/18 22:00 01/17/18 23:24 Mycostatin Cream - TP Not Given BID SABINA Ondansetron HCl 4 mg 01/17/18 19:42 Zofran Injection IVPUSH Q6H PRN NAUSEA AND/OR VOMITING Oxycodone HCl 5 mg 01/17/18 19:22 Roxicodone - PO 01/18/18 19:21 Q4H PRN PAIN LEVEL 1-5 Oxycodone HCl 10 mg 01/17/18 19:40 Roxicodone - PO Q4H PRN PAIN LEVEL 4 - 6 Pantoprazole Sodium 40 mg 01/18/18 10:00 01/18/18 09:29 Protonix - PO 40 mg DAILY SABINA Administration Polyethylene Glycol 17 gm 01/18/18 10:00 Miralax (For Daily Use) - PO DAILY SABINA Promethazine HCl 12.5 mg 01/17/18 19:22 Phenergan Injection - IVPB Q6H PRN NAUSEA-FOR RESCUE AFTER 15 MIN Senna 1 tab 01/17/18 22:00 01/17/18 21:10 Senna - PO 1 tab HS SABINA Administration Trazodone HCl 150 mg 01/17/18 22:00 01/17/18 21:07 Desyrel - PO 150 mg HS SABINA Administration ASSESSMENT/PLAN: 82 year old male with a hx of COPD, chronic urinary retention, spinal stenosis, and multiple falls is post op day #15 s/p T12-L4 laminectomies, T9-pelvis posterior instrumentation, 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 Sepsis/Low grade fever: secondary to UTI and hospital acquired pneumonia. Possible patient also has a bacteremia. Patient can also have wound infection or infected hardware at this point Blood cultures growing BCx. Second set done 3 days later also growing staph species repeat (third set) blood cultures pending-no growth so far Patient taken back to the OR yesterday evening for pulse irrigation and wound washout. Dionisio pus found. Plan to go back to the OR tomorrow for further wound exploration and washout. Patient has infected hardware will need lisa on terminal manager Abx per ID as well as lifelong suppressive ABx. 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 Patient tolerated the procedure well Pain is well controlled at this time Per family patient has AMS when takes trazodone and oxycodone together PT consult appreciated Incentive spirometry COPD not in exacerbation: Continue Duonebs Scheduled albuterol Nebs PRN Chest PT BID continue prednisone 5mg po daily patient on Dulera at home on symbicort here O2 PRN and while sleeping pulmonology consult appreciated incentive spirometry Chronic Urinary Retention holder in for now To continue self catheterizing at home Transaminitis: improving could be due to Zosyn use RUQ US no acute pathology Chronic constipation: miralax history of AAA s/p stenting no issues at this time acute on chronic Anemia. s/p 2 units PRBCs overnight with appropriate response Hb 9.3 at this time. ICU team to repeat Hb at 8pm to ensure stability s/p 3 unit PRBC total Hb Stable at this time continue to trend and transfuse PRN FEN Regular diet Potassium 40MeQ PO once Regular diet Prophylaxis SCDs-No chemical PPx per spine surgery Protonix for GERD PT consult Case discussed with Dr. Woo Visit type - Emergency Visit Emergency Visit: Yes ED Registration Date: 01/03/18 Care time: The patient presented to the Emergency Department on the above date and was hospitalized for further evaluation of their emergent condition. - New Patient This patient is new to me today: No - Critical Care Critical Care patient: Yes Total Critical Care Time (in minutes): 35 Critical Care Statement: The care of this patient involved high complexity decision making to prevent further life threatening deterioration of the patient 's condition and/or to evaluate & treat vital organ system(s) failure or risk of failure.
[2018-01-18] MEDS: POLYETHYLENE GLYCOL 3350 119 GM BTL PO SCH (10:09)
[2018-01-18] MEDS ORDERED: BENZOCAINE/MENTH/CETYLPYRD CL 1 EACH LOZENGE MM PRN (10:19)
[2018-01-18] MEDS: MUPIROCIN 2% TOPICAL OINTMENT FOR DECOLONIZATION NS SCH (10:28)
--- NOTE | 2018-01-18 10:48 | PN ---
Progress Note, Physician Chief Complaint: Pt. resting comfortably in bed. No anesthesia complaints. - Current Medication List Current Medications: Active Medications Acetaminophen (Tylenol -) 1,000 mg PO Q6H PRN PRN Reason: PAIN LEVEL 1 - 3 Last Admin: 01/18/18 09:32 Dose: 1,000 mg Albuterol/Ipratropium (Duoneb -) 1 amp NEB RTID [facility] Last Admin: 01/18/18 08:00 Dose: 1 amp Benzocaine/Menthol (Cepacol Lozenge -) 1 each MM PRN PRN PRN Reason: SORE THROAT Budesonide/Formoterol Fumarate (Symbicort 160/4.5mcg -) 2 puff IH BID [facility] Last Admin: 01/18/18 09:29 Dose: 2 puff Chlorhexidine Gluconate (Hibiclens For Decolonization -) 1 applic TP HS [facility] Last Admin: 01/17/18 21:09 Dose: 1 applic Docusate Sodium (Colace -) 100 mg PO Q12H PRN PRN Reason: CONSTIPATION Fentanyl (Sublimaze Injection -) 25 mcg IVPUSH [id number] PRN PRN Reason: PAIN-PACU ORDER X 4 DOSES ONLY Sodium Chloride (Normal Saline -) 1,000 mls @ 75 mls/hr IV ASDIR [facility] Last Admin: 01/18/18 02:18 Dose: 75 mls/hr Vancomycin HCl (Vancomycin 1 Gm Premix -) 1 gm in 200 mls @ 250 mls/2 hr IVPB BID@0000,1200 SABINA; Protocol Last Admin: 01/18/18 01:18 Dose: 250 mls/2 hr Piperacillin Sod/Tazobactam (Sod 4.5 gm/ Dextrose) 100 mls @ 200 mls/hr IVPB Q8H-IV SABINA; Protocol Last Admin: 01/18/18 09:29 Dose: 200 mls/hr Morphine Sulfate (Morphine Sulfate) 4 mg IVPUSH Q3H PRN PRN Reason: PAIN LEVEL 7 - 10 Last Admin: 01/18/18 09:30 Dose: 4 mg Mupirocin (Bactroban Ointment (For Decolonization) -) 1 applic NS BID [facility] Stop: 01/22/18 21:59 Last Admin: 01/18/18 10:28 Dose: 1 applic Nystatin (Mycostatin Cream -) 1 applic TP BID [facility] Last Admin: 01/17/18 23:24 Dose: Not Given Ondansetron HCl (Zofran Injection) 4 mg IVPUSH Q6H PRN PRN Reason: NAUSEA AND/OR VOMITING Oxycodone HCl (Roxicodone -) 5 mg PO Q4H PRN PRN Reason: PAIN LEVEL 1-5 Stop: 01/18/18 19:21 Oxycodone HCl (Roxicodone -) 10 mg PO Q4H PRN PRN Reason: PAIN LEVEL 4 - 6 Pantoprazole Sodium (Protonix -) 40 mg PO DAILY [facility] Last Admin: 01/18/18 09:29 Dose: 40 mg Polyethylene Glycol (Miralax (For Daily Use) -) 17 gm PO DAILY [facility] Last Admin: 01/18/18 10:09 Dose: Not Given Promethazine HCl (Phenergan Injection -) 12.5 mg IVPB Q6H PRN PRN Reason: NAUSEA-FOR RESCUE AFTER 15 MIN Senna (Senna -) 1 tab PO [facility] Last Admin: 01/17/18 21:10 Dose: 1 tab Trazodone HCl (Desyrel -) 150 mg PO [facility] Last Admin: 01/17/18 21:07 Dose: 150 mg - Objective Vital Signs: Vital Signs Temperature 99.5 F 01/18/18 10:34 Pulse Rate 100 H 01/18/18 10:00 Respiratory Rate 18 01/18/18 10:00 Blood Pressure 110/52 01/18/18 10:00 O2 Sat by Pulse Oximetry (%) 97 01/18/18 10:14 Constitutional: Yes: Well Nourished, No Distress, Calm Musculoskeletal: Yes: WNL Labs: CBC, BMP 01/18/18 05:30 01/18/18 05:30 Assessment/Plan POD#1 s/p I&D surgical wound T9-S1. Stable condition. D/C from anesthesia care.
--- NOTE | 2018-01-18 11:03 | PN ---
Teaching Attending Note Name of Resident: Yaima Michelle ATTENDING PHYSICIAN STATEMENT I saw and evaluated the patient. I reviewed the resident's note and discussed the case with the resident. I agree with the resident's findings and plan as documented. SUBJECTIVE: Pt seen and examined in the ICU. s/p I&D of back wound. c/o pain at surgical site. No fevers recorded. Last blood cultures no growth to date. OBJECTIVE: Vital Signs Period Temp Pulse Resp BP Sys/Hyman Pulse Ox Last 24 Hr 97.5 F-99.5 F 68-100 14-21 93-146/46-96 91-100 Intake & Output 01/15/18 01/16/18 01/17/18 01/18/18 23:59 23:59 23:59 23:59 Intake Total 4402 887 9086 1450 Output Total 2300 3800 4150 1000 Balance -650 -2900 -200 450 Weight 90.265 kg Gen: NAD at rest Heart: RRR Lung: scattered rhonchi Abd: soft, nontender Ext: no edema CBC, BMP 01/18/18 05:30 01/18/18 05:30 Active Medications Acetaminophen (Tylenol -) 1,000 mg PO Q6H PRN PRN Reason: PAIN LEVEL 1 - 3 Last Admin: 01/18/18 09:32 Dose: 1,000 mg Albuterol/Ipratropium (Duoneb -) 1 amp NEB RTID [facility] Last Admin: 01/18/18 08:00 Dose: 1 amp Benzocaine/Menthol (Cepacol Lozenge -) 1 each MM PRN PRN PRN Reason: SORE THROAT Budesonide/Formoterol Fumarate (Symbicort 160/4.5mcg -) 2 puff IH BID [facility] Last Admin: 01/18/18 09:29 Dose: 2 puff Chlorhexidine Gluconate (Hibiclens For Decolonization -) 1 applic TP HS [facility] Last Admin: 01/17/18 21:09 Dose: 1 applic Docusate Sodium (Colace -) 100 mg PO Q12H PRN PRN Reason: CONSTIPATION Fentanyl (Sublimaze Injection -) 25 mcg IVPUSH [id number] PRN PRN Reason: PAIN-PACU ORDER X 4 DOSES ONLY Sodium Chloride (Normal Saline -) 1,000 mls @ 75 mls/hr IV ASDIR [facility] Last Admin: 01/18/18 02:18 Dose: 75 mls/hr Vancomycin HCl (Vancomycin 1 Gm Premix -) 1 gm in 200 mls @ 250 mls/2 hr IVPB BID@0000,1200 [facility]; Protocol Last Admin: 01/18/18 01:18 Dose: 250 mls/2 hr Piperacillin Sod/Tazobactam (Sod 4.5 gm/ Dextrose) 100 mls @ 200 mls/hr IVPB Q8H-IV [facility]; Protocol Last Admin: 01/18/18 09:29 Dose: 200 mls/hr Morphine Sulfate (Morphine Sulfate) 4 mg IVPUSH Q3H PRN PRN Reason: PAIN LEVEL 7 - 10 Last Admin: 01/18/18 09:30 Dose: 4 mg Mupirocin (Bactroban Ointment (For Decolonization) -) 1 applic NS BID [facility] Stop: 01/22/18 21:59 Last Admin: 01/18/18 10:28 Dose: 1 applic Nystatin (Mycostatin Cream -) 1 applic TP BID [facility] Last Admin: 01/17/18 23:24 Dose: Not Given Ondansetron HCl (Zofran Injection) 4 mg IVPUSH Q6H PRN PRN Reason: NAUSEA AND/OR VOMITING Oxycodone HCl (Roxicodone -) 5 mg PO Q4H PRN PRN Reason: PAIN LEVEL 1-5 Stop: 01/18/18 19:21 Oxycodone HCl (Roxicodone -) 10 mg PO Q4H PRN PRN Reason: PAIN LEVEL 4 - 6 Pantoprazole Sodium (Protonix -) 40 mg PO DAILY [facility] Last Admin: 01/18/18 09:29 Dose: 40 mg Polyethylene Glycol (Miralax (For Daily Use) -) 17 gm PO DAILY [facility] Last Admin: 01/18/18 10:09 Dose: Not Given Promethazine HCl (Phenergan Injection -) 12.5 mg IVPB Q6H PRN PRN Reason: NAUSEA-FOR RESCUE AFTER 15 MIN Senna (Senna -) 1 tab PO [facility] Last Admin: 01/17/18 21:10 Dose: 1 tab Trazodone HCl (Desyrel -) 150 mg PO [facility] Last Admin: 01/17/18 21:07 Dose: 150 mg ASSESSMENT AND PLAN: Lumbar Compression Fractures s/p T12-L4 Laminectomies/T9-pelvis instrumentation/T9-S1 posterior lateral arthrodesis Acute COPD Exacerbation improved Chronic Hypoxic Respiratory Failure Pneumonia Back Wound Infection MRSA Bacteremia Anemia - continue antibiotics - f/u pending cultures - back to OR tomorrow for repeat washout - inhaled bronchodilators standing and PRN - pain control - incentive spirometry - O2 to keep SpO2 >90% - PO as tolerated - bowel regimen - rehab/PT - DVT prophylaxis
--- NOTE | 2018-01-18 12:09 | PN ---
Teaching Attending Note Name of Resident: Nahid Mata ATTENDING PHYSICIAN STATEMENT I saw and evaluated the patient. I reviewed the resident's note and discussed the case with the resident. I agree with the resident's findings and plan as documented. SUBJECTIVE: Patient complains of sore throat and back pain. OBJECTIVE: Vital Signs Period Temp Pulse Resp BP Sys/Hyman Pulse Ox Last 24 Hr 97.5 F-99.5 F 68-100 14-21 93-146/46-96 91-100 HEART: S1S2, RRR LUNGS: Scattered rhonchi ABDOMEN: Soft, non-tender, non-distended, normal BS EXTREMITIES: No edema Laboratory Results - last 24 hr 01/17/18 01/17/18 01/18/18 07:00 11:49 05:30 WBC 8.9 RBC 3.22 L Hgb 9.3 L Hct 27.4 L MCV 85.1 MCH 28.8 MCHC 33.8 RDW 13.9 Plt Count 378 MPV 7.4 L Sodium Potassium Chloride Carbon Dioxide Anion Gap BUN Creatinine Creat Clearance w eGFR Random Glucose Calcium Phosphorus Magnesium Total Bilirubin AST ALT Alkaline Phosphatase Total Protein Albumin Vancomycin Pre-Dose 20.30 Blood Type A POSITIVE Antibody Screen Negative Crossmatch See Detail Crossmatch IS Only See Detail 01/18/18 05:30 WBC RBC Hgb Hct MCV MCH MCHC RDW Plt Count MPV Sodium 136 Potassium 3.7 Chloride 103 Carbon Dioxide 26 Anion Gap 7 L BUN 16 Creatinine 0.7 Creat Clearance w eGFR > 60 Random Glucose 102 Calcium 8.3 L Phosphorus 3.3 Magnesium 1.8 Total Bilirubin 1.0 AST 42 H ALT 90 H Alkaline Phosphatase 106 Total Protein 4.9 L Albumin 1.7 L Vancomycin Pre-Dose Blood Type Antibody Screen Crossmatch Crossmatch IS Only Current Medications Generic Name Dose Route Start Last Admin Trade Name Freq PRN Reason Stop Dose Admin Acetaminophen 1,000 mg 01/17/18 19:42 01/18/18 09:32 Tylenol - PO 1,000 mg Q6H PRN Administration PAIN LEVEL 1 - 3 Albuterol/Ipratropium 1 amp 01/17/18 20:00 01/18/18 08:00 Duoneb - NEB 1 amp RTID SABINA Administration Amino Acids 30 ml 01/18/18 17:30 Prosource No Carb Liquid Pkt PO BID@0800,1730 [facility] Benzocaine/Menthol 1 each 01/18/18 10:19 Cepacol Lozenge - MM PRN PRN SORE THROAT Budesonide/Formoterol Fumarate 2 puff 01/17/18 22:00 01/18/18 09:29 Symbicort 160/4.5mcg - IH 2 puff BID SABINA Administration Chlorhexidine Gluconate 1 applic 01/17/18 22:00 01/17/18 21:09 Hibiclens For Decolonization - TP 1 applic HS SABINA Administration Docusate Sodium 100 mg 01/17/18 19:42 Colace - PO Q12H PRN CONSTIPATION Fentanyl 25 mcg 01/17/18 19:22 Sublimaze Injection - IVPUSH [id number] PRN PAIN-PACU ORDER X 4 DOSES ONLY Sodium Chloride 1,000 mls @ 75 mls/hr 01/17/18 19:42 01/18/18 02:18 Normal Saline - IV 75 mls/hr ASDIR SABINA Administration Vancomycin HCl 1 gm in 200 mls @ 250 mls/2 hr 01/18/18 00:00 01/18/18 11:18 Vancomycin 1 Gm Premix - IVPB 250 mls/2 hr BID@0000,1200 SABINA Administration Protocol Piperacillin Sod/Tazobactam 100 mls @ 200 mls/hr 01/18/18 02:00 01/18/18 09: 29 Sod 4.5 gm/ Dextrose IVPB 200 mls/hr Q8H-IV [facility]INA Administration Protocol Morphine Sulfate 4 mg 01/17/18 19:42 01/18/18 09:30 Morphine Sulfate IVPUSH 4 mg Q3H PRN Administration PAIN LEVEL 7 - 10 Mupirocin 1 applic 01/17/18 22:00 01/18/18 10:28 Bactroban Ointment (For Decolonization) - NS 01/22/18 21:59 1 applic BID SABINA Administration Nystatin 1 applic 01/17/18 22:00 01/17/18 23:24 Mycostatin Cream - TP Not Given BID SABINA Ondansetron HCl 4 mg 01/17/18 19:42 Zofran Injection IVPUSH Q6H PRN NAUSEA AND/OR VOMITING Oxycodone HCl 5 mg 01/17/18 19:22 Roxicodone - PO 01/18/18 19:21 Q4H PRN PAIN LEVEL 1-5 Oxycodone HCl 10 mg 01/17/18 19:40 Roxicodone - PO Q4H PRN PAIN LEVEL 4 - 6 Pantoprazole Sodium 40 mg 01/18/18 10:00 01/18/18 09:29 Protonix - PO 40 mg DAILY SABINA Administration Polyethylene Glycol 17 gm 01/18/18 10:00 01/18/18 10:09 Miralax (For Daily Use) - PO Not Given DAILY SABINA Promethazine HCl 12.5 mg 01/17/18 19:22 Phenergan Injection - IVPB Q6H PRN NAUSEA-FOR RESCUE AFTER 15 MIN Senna 1 tab 01/17/18 22:00 01/17/18 21:10 Senna - PO 1 tab HS [facility]INA Administration Trazodone HCl 150 mg 01/17/18 22:00 01/17/18 21:07 Desyrel - PO 150 mg HS [facility] Administration ASSESSMENT AND PLAN: This is an 82 year old man a history of COPD, chronic urinary retention, lumbar compression fractures with spinal stenosis who was admitted for lumbar spine surgery. 1. Sepsis secondary to E. coli UTI, pneumonia, surgical wound infection with MRSA bacteremia - s/p incision, drainage, washout of deep thoracic and lumbar spine 01/17 - Plan for return to OR tomorrow - Continue Zosyn, Vancomycin - Blood cultures 01/10 growing MRSA - Blood cultures 01/12 growing MRSA - Blood cultures 01/15 negative after 72 hrs - Echo shows normal LV, normal LV systolic function, LVEF 60-65%, E/A reversal, normal RV systolic function, trace MO 2. Lumbar spinal stenosis, lumbar compression fractures, lumbar kyphosis - s/p T12-L4 laminectomies, T9-pelvis posterior instrumentation, T9-S1 posterolateral arthrodesis 01/03 3. Acute exacerbation of COPD - Improved - Continue Prednisone, Symbicort, DuoNeb, oxygen - Patient is steroid-dependent at home 4. Chronic hypoxic respiratory failure - Oxygen to maintain saturation >90% 5. Anemia - Likely acute blood loss and sepsis on chronic anemia - Transfused 1 unit PRBCs earlier this admission and 2 units PRBCs last night 6. Chronic urinary retention - Patient does self-catheterization at home 7. Constipation - Continue Colace, Senna, Miralax
[2018-01-18] MEDS: NYSTATIN 100,000 UNIT/GM TOPICAL CREAM 15 GM TUBE TP SCH ×2 (14:12→22:20)
[2018-01-18] MEDS: AMINO ACIDS/PROTEIN HYDROLYS 30 ML LIQUID.PKT PO SCH (17:09)
[2018-01-18] MEDS: traZODone HCL 50 MG TABLET (FP) PO SCH (22:17)
[2018-01-18] MEDS: SENNOSIDES 8.6MG TABLET (FP) PO SCH (22:18)
[2018-01-18] MEDS: CHLORHEXIDINE GLUCONATE 4% CLEANSER FOR DECOLONIZATION TP SCH (22:20)
[2018-01-19] MEDS: ACETAMINOPHEN 500 MG TABLET (FP) PO PRN ×3 (00:42→15:10)
[2018-01-19] MEDS: MUPIROCIN 2% TOPICAL OINTMENT FOR DECOLONIZATION NS SCH ×3 (00:44→22:05)
[2018-01-19] MEDS: BUDESONIDE/FORMETEROL FUMARATE 160/4.5 mcg INHALER IH SCH ×3 (00:45→22:11)
[2018-01-19] MEDS: PIPERACILLIN/TAZOB 4.5 GM 4.5 GM in DEXTROSE 5%-WATER 100 ML IVPB SCH ×3 (03:00→17:40)
[2018-01-19] MEDS ORDERED: PIPERACILLIN/TAZOBACTAM 4.5 GM VIAL IVPB ONE ×3 (03:22→17:11)
[2018-01-19] MEDS ORDERED: DEXTROSE 5%-WATER 100 ML IVPB ONE ×3 (03:23→17:11)
[2018-01-19] MEDS: morphine SULFATE 4 MG/ML VIAL IVPUSH PRN (06:06)
[2018-01-19 06:21] LABS: HEMATOCRIT 25.2 % (35.4-49); HEMOGLOBIN 8.5 GM/dL (11.7-16.9); MCH 28.8 pg (25.7-33.7); MCHC 33.6 g/dl (32.0-35.9); MEAN CELL VOLUME 85.6 fl (80-96); MEAN PLT VOLUME 7.5 fl (7.5-11.1); PLATELET COUNT 339 K/MM3 (134-434); RBC 2.95 M/mm3 (4.00-5.60); WHITE BLOOD COUNT 7.6 K/mm3 (4.0-10.0)
[2018-01-19 06:47] LABS: ALBUMIN 1.6 g/dl (3.4-5.0); ALK PHOS 181 U/L (45-117); ANION GAP 4 MMOL/L (8-16); BILIRUBIN,TOTAL 0.7 mg/dL (0.2-1); BLOOD UREA NITROGEN 19 mg/dL (7-18); CALCIUM 8.4 mg/dL (8.5-10.1); CHLORIDE 105 mmol/L (98-107); CO2 27 mmol/L (21-32); CREATININE 0.8 mg/dL (0.55-1.3); GLUCOSE,RANDOM 82 mg/dL (74-106); MAGNESIUM 1.8 mg/dL (1.8-2.4); PHOSPHOROUS 3.3 mg/dL (2.5-4.9); POTASSIUM 3.9 mmol/L (3.5-5.1); SGOT/AST 28 U/L (15-37); SGPT/ALT 63 U/L (13-61); SODIUM 136 mmol/L (136-145); TOT PROT 4.6 g/dl (6.4-8.2)
[2018-01-19] MEDS: ALBUTEROL SO4 2.5/IPRATROPIUM 0.5 INH SOL 3 ML VIAL.NEB. NEB SCH ×3 (08:20→20:04)
[2018-01-19] MEDS ORDERED: PT OWN MED DRAWER 7, Y5N ONE ×3 (08:23→23:43)
[2018-01-19] MEDS: AMINO ACIDS/PROTEIN HYDROLYS 30 ML LIQUID.PKT PO SCH ×2 (08:28→17:40)
[2018-01-19] MEDS: POLYETHYLENE GLYCOL 3350 119 GM BTL PO SCH (09:19)
[2018-01-19] MEDS: PANTOPRAZOLE 40 MG TABLET (FP) PO SCH (09:20)
[2018-01-19] MEDS: NYSTATIN 100,000 UNIT/GM TOPICAL CREAM 15 GM TUBE TP SCH ×2 (09:20→22:11)
--- NOTE | 2018-01-19 09:56 | PN ---
Physical Exam: SUBJECTIVE: Patient is a 82 y/o male with a history of urinary retention, COPD, aortic aneyursm , s/p T 12- L4 laminectomy and t9-pelvis PISF on 01/03 who is her for POD 2 Thoracolumbar wound exploration, debridement, wound culture and pulse irrigation. Patient had low grade fever overnight. Patient had no complaints overnight and was more pleasant today. He will go for second surgery tomorrow. OBJECTIVE: Vital Signs Temperature 98.2 F 01/19/18 08:32 Pulse Rate 80 01/19/18 07:44 Respiratory Rate 20 01/19/18 07:44 Blood Pressure 105/49 01/19/18 07:44 O2 Sat by Pulse Oximetry (%) 94 L 01/19/18 07:58 GENERAL: The patient is awake, alert, HEAD: Normal with no signs of trauma. EYES: extraocular movements intact LUNGS: Breath sounds equal, clear to auscultation bilaterally HEART: Regular rate and rhythm, S1, S2 without murmur, rub or gallop. ABDOMEN: Soft, nontender, nondistended, normoactive bowel sounds EXTREMITIES: 2+ pulses, warm, well-perfused, no edema. dressing over lower back PSYCH: Normal mood, normal affect. SKIN: Warm, dry, normal turgor, no rashes or lesions noted CBCD WBC 7.6 K/mm3 (4.0-10.0) 01/19/18 05:30 RBC 2.95 M/mm3 (4.00-5.60) L 01/19/18 05:30 Hgb 8.5 GM/dL (11.7-16.9) L 01/19/18 05:30 Hct 25.2 % (35.4-49) L 01/19/18 05:30 MCV 85.6 fl (80-96) 01/19/18 05:30 MCHC 33.6 g/dl (32.0-35.9) 01/19/18 05:30 RDW 14.0 % (11.9-15.9) 01/19/18 05:30 Plt Count 339 K/MM3 (134-434) 01/19/18 05:30 MPV 7.5 fl (7.5-11.1) 01/19/18 05:30 CMP Sodium 136 mmol/L (136-145) 01/19/18 05:30 Potassium 3.9 mmol/L (3.5-5.1) 01/19/18 05:30 Chloride 105 mmol/L (98-107) 01/19/18 05:30 Carbon Dioxide 27 mmol/L (21-32) 01/19/18 05:30 Anion Gap 4 MMOL/L (8-16) L 01/19/18 05:30 BUN 19 mg/dL (7-18) H 01/19/18 05:30 Creatinine 0.8 mg/dL (0.55-1.3) 01/19/18 05:30 Creat Clearance w eGFR > 60 (>60) 01/19/18 05:30 Calcium 8.4 mg/dL (8.5-10.1) L 01/19/18 05:30 Total Bilirubin 0.7 mg/dL (0.2-1) 01/19/18 05:30 AST 28 U/L (15-37) 01/19/18 05:30 ALT 63 U/L (13-61) H 01/19/18 05:30 Alkaline Phosphatase 181 U/L (45-117) H 01/19/18 05:30 Total Protein 4.6 g/dl (6.4-8.2) L 01/19/18 05:30 Albumin 1.6 g/dl (3.4-5.0) L 01/19/18 05:30 Active Medications Acetaminophen (Tylenol -) 1,000 mg PO Q6H PRN PRN Reason: PAIN LEVEL 1 - 3 Last Admin: 01/19/18 09:21 Dose: 1,000 mg Albuterol/Ipratropium (Duoneb -) 1 amp NEB RTID [facility] Last Admin: 01/18/18 21:40 Dose: 1 amp Amino Acids (Prosource No Carb Liquid Pkt) 30 ml PO BID@0800,1730 [facility] Last Admin: 01/19/18 08:28 Dose: 30 ml Benzocaine/Menthol (Cepacol Lozenge -) 1 each MM PRN PRN PRN Reason: SORE THROAT Last Admin: 01/19/18 08:36 Dose: 1 each Budesonide/Formoterol Fumarate (Symbicort 160/4.5mcg -) 2 puff IH BID [facility] Last Admin: 01/19/18 09:19 Dose: 2 puff Chlorhexidine Gluconate (Hibiclens For Decolonization -) 1 applic TP HS [facility] Last Admin: 01/18/18 22:20 Dose: 1 applic Docusate Sodium (Colace -) 100 mg PO Q12H PRN PRN Reason: CONSTIPATION Fentanyl (Sublimaze Injection -) 25 mcg IVPUSH [id number] PRN PRN Reason: PAIN-PACU ORDER X 4 DOSES ONLY Sodium Chloride (Normal Saline -) 1,000 mls @ 75 mls/hr IV ASDIR [facility] Last Admin: 01/18/18 22:00 Dose: 75 mls/hr Vancomycin HCl (Vancomycin 1 Gm Premix -) 1 gm in 200 mls @ 250 mls/2 hr IVPB BID@0000,1200 [facility]; Protocol Last Admin: 01/18/18 23:53 Dose: 250 mls/2 hr Piperacillin Sod/Tazobactam (Sod 4.5 gm/ Dextrose) 100 mls @ 200 mls/hr IVPB Q8H-IV [facility]; Protocol Last Admin: 01/19/18 09:20 Dose: 200 mls/hr Morphine Sulfate (Morphine Sulfate) 4 mg IVPUSH Q3H PRN PRN Reason: PAIN LEVEL 7 - 10 Last Admin: 01/19/18 06:06 Dose: 4 mg Mupirocin (Bactroban Ointment (For Decolonization) -) 1 applic NS BID [facility] Stop: 01/22/18 21:59 Last Admin: 01/19/18 09:19 Dose: 1 applic Nystatin (Mycostatin Cream -) 1 applic TP BID [facility] Last Admin: 01/19/18 09:20 Dose: 1 applic Ondansetron HCl (Zofran Injection) 4 mg IVPUSH Q6H PRN PRN Reason: NAUSEA AND/OR VOMITING Oxycodone HCl (Roxicodone -) 10 mg PO Q4H PRN PRN Reason: PAIN LEVEL 4 - 6 Pantoprazole Sodium (Protonix -) 40 mg PO DAILY [facility] Last Admin: 01/19/18 09:20 Dose: 40 mg Polyethylene Glycol (Miralax (For Daily Use) -) 17 gm PO DAILY [facility] Last Admin: 01/19/18 09:19 Dose: 17 grams Promethazine HCl (Phenergan Injection -) 12.5 mg IVPB Q6H PRN PRN Reason: NAUSEA-FOR RESCUE AFTER 15 MIN Senna (Senna -) 1 tab PO [facility] Last Admin: 01/18/18 22:18 Dose: 1 tab Trazodone HCl (Desyrel -) 150 mg PO [facility] Last Admin: 01/18/18 22:17 Dose: 150 mg ASSESSMENT/PLAN: Patient is a 82 y/o male with a history of urinary retention, COPD, aortic aneyursm , s/p T 12- L4 laminectomy and t9-pelvis PISF on 01/03 who is her for POD 1 Thoracolumbar wound exploration, debridement, wound culture and pulse irrigation. Neuro s/p Thoracolumbar wound exploration, debridement, wound culture and pulse irrigation - patient can eat today, breakfast tomorrow and then will be made NPO - patient to return to OR tomorrow morning (01/20) for further debridement per Dr. Roberts - morphine 4mg q3h prn - oxycodone 5mg pain 1-5 or 10 mg pain 4-6 prn - do not remove packing or dressing - received two units of blood post op, hgb etta to 9.3 - patient to return to OR tomorrow morning (01/20) for further debridement per Dr. Roberts Insomnia - Trazodone 150 mg po [facility] Cardio - Echo: LV normal, systolic fxn normal, EF: 60-65% - abd US: AAA with stenting, Pulm COPD - duoneb 1 amp - symbicort - continue to use incentive spirometer - CXR: new atelectasis or infiltrate at [facility] on 01/14, on abx for possible pna GI Nausea 2/2 to infection and pain medication - promethazine 12.5 - pantoprazole 40 mg francisco for ppx - zofran 4mg q6h Transaminitis possibly 2/2 to Zosyn use - continue to trend AST/ALT - trending down - abd US: mild hepatomegaly, moderate distended gallbladder Constipation - Miralax and docusate daily Urinary chronic urinary retention - holder in at present time - self cathetarization at home Infectious Disease MRSA bacteremia - Vancomycin 1 gm ( day 9) - Zosyn 4.5 gm - blood cultures 01/12: MRSA - repeat blood cultures grown staph coagulase negative - Urine CX: E. Coli - tylenol 650 mg for fever > 100.3 - f/u Dr. Lopez Hematology DVT ppx - SCD's FEN - k repleted, keep >4 - NS @ 75 Dispo: monitor in ICU until clear after post op Visit type - Emergency Visit Emergency Visit: No - New Patient This patient is new to me today: No - Critical Care Critical Care patient: Yes Total Critical Care Time (in minutes): 40 Critical Care Statement: The care of this patient involved high complexity decision making to prevent further life threatening deterioration of the patient 's condition and/or to evaluate & treat vital organ system(s) failure or risk of failure.
--- NOTE | 2018-01-19 11:26 | PN ---
Teaching Attending Note Name of Resident: Nahid Mata ATTENDING PHYSICIAN STATEMENT I saw and evaluated the patient. I reviewed the resident's note and discussed the case with the resident. I agree with the resident's findings and plan as documented. SUBJECTIVE: Patient is awake, alert, and appears comfortable lying in bed. He denies pain, SOB. OBJECTIVE: Vital Signs Period Temp Pulse Resp BP Sys/Hyman Pulse Ox Last 24 Hr 98.2 F-100.5 F 66-92 18-22 94-149/40-74 94-96 HEART: S1S2, RRR LUNGS: Few rhonchi ABDOMEN: Soft, non-tender, non-distended, normal BS EXTREMITIES: No edema Laboratory Results - last 24 hr 01/19/18 01/19/18 05:30 05:30 WBC 7.6 RBC 2.95 L Hgb 8.5 L Hct 25.2 L MCV 85.6 MCH 28.8 MCHC 33.6 RDW 14.0 Plt Count 339 MPV 7.5 Sodium 136 Potassium 3.9 Chloride 105 Carbon Dioxide 27 Anion Gap 4 L BUN 19 H Creatinine 0.8 Creat Clearance w eGFR > 60 Random Glucose 82 Calcium 8.4 L Phosphorus 3.3 Magnesium 1.8 Total Bilirubin 0.7 AST 28 ALT 63 H Alkaline Phosphatase 181 H Total Protein 4.6 L Albumin 1.6 L Current Medications Generic Name Dose Route Start Last Admin Trade Name Freq PRN Reason Stop Dose Admin Acetaminophen 1,000 mg 01/17/18 19:42 01/19/18 09:21 Tylenol - PO 1,000 mg Q6H PRN Administration PAIN LEVEL 1 - 3 Albuterol/Ipratropium 1 amp 01/17/18 20:00 01/18/18 21:40 Duoneb - NEB 1 amp RTID [facility] Administration Amino Acids 30 ml 01/18/18 17:30 01/19/18 08:28 Prosource No Carb Liquid Pkt PO 30 ml BID@0800,1730 [facility] Administration Benzocaine/Menthol 1 each 01/18/18 10:19 01/19/18 08:36 Cepacol Lozenge - MM 1 each PRN PRN Administration SORE THROAT Budesonide/Formoterol Fumarate 2 puff 01/17/18 22:00 01/19/18 09:19 Symbicort 160/4.5mcg - IH 2 puff BID [facility] Administration Chlorhexidine Gluconate 1 applic 01/17/18 22:00 01/18/18 22:20 Hibiclens For Decolonization - TP 1 applic HS [facility] Administration Docusate Sodium 100 mg 01/17/18 19:42 Colace - PO Q12H PRN CONSTIPATION Fentanyl 25 mcg 01/17/18 19:22 Sublimaze Injection - IVPUSH [id number] PRN PAIN-PACU ORDER X 4 DOSES ONLY Sodium Chloride 1,000 mls @ 75 mls/hr 01/17/18 19:42 01/18/18 22:00 Normal Saline - IV 75 mls/hr ASDIR [facility] Administration Vancomycin HCl 1 gm in 200 mls @ 250 mls/2 hr 01/18/18 00:00 01/18/18 23:53 Vancomycin 1 Gm Premix - IVPB 250 mls/2 hr BID@0000,1200 [facility] Administration Protocol Piperacillin Sod/Tazobactam 100 mls @ 200 mls/hr 01/18/18 02:00 01/19/18 09: 20 Sod 4.5 gm/ Dextrose IVPB 200 mls/hr Q8H-IV [facility] Administration Protocol Morphine Sulfate 4 mg 01/17/18 19:42 01/19/18 06:06 Morphine Sulfate IVPUSH 4 mg Q3H PRN Administration PAIN LEVEL 7 - 10 Mupirocin 1 applic 01/17/18 22:00 01/19/18 09:19 Bactroban Ointment (For Decolonization) - NS 01/22/18 21:59 1 applic BID [facility] Administration Nystatin 1 applic 01/17/18 22:00 01/19/18 09:20 Mycostatin Cream - TP 1 applic BID [facility] Administration Ondansetron HCl 4 mg 01/17/18 19:42 Zofran Injection IVPUSH Q6H PRN NAUSEA AND/OR VOMITING Oxycodone HCl 10 mg 01/17/18 19:40 Roxicodone - PO Q4H PRN PAIN LEVEL 4 - 6 Pantoprazole Sodium 40 mg 01/18/18 10:00 01/19/18 09:20 Protonix - PO 40 mg DAILY [facility] Administration Polyethylene Glycol 17 gm 01/18/18 10:00 01/19/18 09:19 Miralax (For Daily Use) - PO 17 grams DAILY [facility] Administration Promethazine HCl 12.5 mg 01/17/18 19:22 Phenergan Injection - IVPB Q6H PRN NAUSEA-FOR RESCUE AFTER 15 MIN Senna 1 tab 01/17/18 22:00 01/18/18 22:18 Senna - PO 1 tab HS [facility] Administration Trazodone HCl 150 mg 01/17/18 22:00 01/18/18 22:17 Desyrel - PO 150 mg HS [facility] Administration ASSESSMENT AND PLAN: This is an 82 year old man a history of COPD, chronic urinary retention, lumbar compression fractures with spinal stenosis who was admitted for lumbar spine surgery. 1. Sepsis secondary to E. coli UTI, pneumonia, surgical wound infection with MRSA bacteremia - s/p incision, drainage, washout of deep thoracic and lumbar spine 01/17 - Plan for return to OR today - Continue Zosyn, Vancomycin - Blood cultures 01/10 growing MRSA - Blood cultures 01/12 growing MRSA - Blood cultures 01/15 negative after 96 hrs - Wound culture growing coagulase negative Staph - Echo shows normal LV, normal LV systolic function, LVEF 60-65%, E/A reversal, normal RV systolic function, trace IN 2. Lumbar spinal stenosis, lumbar compression fractures, lumbar kyphosis - s/p T12-L4 laminectomies, T9-pelvis posterior instrumentation, T9-S1 posterolateral arthrodesis 01/03 3. Acute exacerbation of COPD - Improved - Continue Prednisone, Symbicort, DuoNeb, oxygen - Patient is steroid-dependent at home 4. Chronic hypoxic respiratory failure - Oxygen to maintain saturation >90% 5. Anemia - Likely acute blood loss and sepsis on chronic anemia - Transfused 3 units PRBCs this admission 6. Chronic urinary retention - Patient does self-catheterization at home 7. Constipation - Continue Colace, Senna, Miralax
--- NOTE | 2018-01-19 11:45 | PN ---
Teaching Attending Note Name of Resident: Yaima Michelle ATTENDING PHYSICIAN STATEMENT I saw and evaluated the patient. I reviewed the resident's note and discussed the case with the resident. I agree with the resident's findings and plan as documented. SUBJECTIVE: Pt seen and examined in the ICU. Denies shortness of breath or chest pain. Back pain controlled. Low grade fever overnight. OBJECTIVE: Vital Signs Period Temp Pulse Resp BP Sys/Hyman Pulse Ox Last 24 Hr 98.2 F-100.5 F 66-92 18-22 94-149/40-74 94-96 Intake & Output 01/16/18 01/17/18 01/18/18 01/19/18 23:59 23:59 23:59 23:59 Intake Total 900 3950 3150 1250 Output Total 3800 4150 1400 600 Balance -2900 -200 1750 650 Weight 90.265 kg 90.401 kg Gen: NAD at rest Heart: RRR Lung: less rhonchi Abd: soft, nontender Ext: no edema CBC, BMP 01/19/18 05:30 01/19/18 05:30 Active Medications Acetaminophen (Tylenol -) 1,000 mg PO Q6H PRN PRN Reason: PAIN LEVEL 1 - 3 Last Admin: 01/19/18 09:21 Dose: 1,000 mg Albuterol/Ipratropium (Duoneb -) 1 amp NEB RTID [facility] Last Admin: 01/18/18 21:40 Dose: 1 amp Amino Acids (Prosource No Carb Liquid Pkt) 30 ml PO BID@0800,1730 [facility] Last Admin: 01/19/18 08:28 Dose: 30 ml Benzocaine/Menthol (Cepacol Lozenge -) 1 each MM PRN PRN PRN Reason: SORE THROAT Last Admin: 01/19/18 08:36 Dose: 1 each Budesonide/Formoterol Fumarate (Symbicort 160/4.5mcg -) 2 puff IH BID [facility] Last Admin: 01/19/18 09:19 Dose: 2 puff Chlorhexidine Gluconate (Hibiclens For Decolonization -) 1 applic TP HS [facility] Last Admin: 01/18/18 22:20 Dose: 1 applic Docusate Sodium (Colace -) 100 mg PO Q12H PRN PRN Reason: CONSTIPATION Fentanyl (Sublimaze Injection -) 25 mcg IVPUSH [id number] PRN PRN Reason: PAIN-PACU ORDER X 4 DOSES ONLY Sodium Chloride (Normal Saline -) 1,000 mls @ 75 mls/hr IV ASDIR [facility] Last Admin: 01/18/18 22:00 Dose: 75 mls/hr Vancomycin HCl (Vancomycin 1 Gm Premix -) 1 gm in 200 mls @ 250 mls/2 hr IVPB BID@0000,1200 [facility]; Protocol Last Admin: 01/18/18 23:53 Dose: 250 mls/2 hr Piperacillin Sod/Tazobactam (Sod 4.5 gm/ Dextrose) 100 mls @ 200 mls/hr IVPB Q8H-IV [facility]; Protocol Last Admin: 01/19/18 09:20 Dose: 200 mls/hr Morphine Sulfate (Morphine Sulfate) 4 mg IVPUSH Q3H PRN PRN Reason: PAIN LEVEL 7 - 10 Last Admin: 01/19/18 06:06 Dose: 4 mg Mupirocin (Bactroban Ointment (For Decolonization) -) 1 applic NS BID [facility] Stop: 01/22/18 21:59 Last Admin: 01/19/18 09:19 Dose: 1 applic Nystatin (Mycostatin Cream -) 1 applic TP BID [facility] Last Admin: 01/19/18 09:20 Dose: 1 applic Ondansetron HCl (Zofran Injection) 4 mg IVPUSH Q6H PRN PRN Reason: NAUSEA AND/OR VOMITING Oxycodone HCl (Roxicodone -) 10 mg PO Q4H PRN PRN Reason: PAIN LEVEL 4 - 6 Pantoprazole Sodium (Protonix -) 40 mg PO DAILY [facility] Last Admin: 01/19/18 09:20 Dose: 40 mg Polyethylene Glycol (Miralax (For Daily Use) -) 17 gm PO DAILY [facility] Last Admin: 01/19/18 09:19 Dose: 17 grams Promethazine HCl (Phenergan Injection -) 12.5 mg IVPB Q6H PRN PRN Reason: NAUSEA-FOR RESCUE AFTER 15 MIN Senna (Senna -) 1 tab PO HS [facility] Last Admin: 01/18/18 22:18 Dose: 1 tab Trazodone HCl (Desyrel -) 150 mg PO [facility] Last Admin: 01/18/18 22:17 Dose: 150 mg ASSESSMENT AND PLAN: Lumbar Compression Fractures s/p T12-L4 Laminectomies/T9-pelvis instrumentation/T9-S1 posterior lateral arthrodesis Acute COPD Exacerbation improved Chronic Hypoxic Respiratory Failure Pneumonia Back Wound Infection MRSA Bacteremia Anemia - continue antibiotics - f/u pending cultures - plan for OR today for repeat washout - inhaled bronchodilators standing and PRN - pain control - incentive spirometry - O2 to keep SpO2 >90% - PO as tolerated - bowel regimen - rehab/PT - DVT prophylaxis
--- NOTE | 2018-01-19 11:49 | PATH ---
Surgical Pathology Report Patient Name: RACHEAL RUIZ [facility]. Rec. 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 Specimen(s) Received INFECTED WOUND THORACIC LUMBAR SPINE Clinical History Persistent spine wound drainage Final Diagnosis LUMBAR SPINE, THORACIC, WOUND, INCISION AND DRAINAGE: FRAGMENTS OF FIBROADIPOSE TISSUE AND SKELETAL MUSCLE WITH MARKED ACUTE AND CHRONIC INFLAMMATION, ULCERATION, AND GRANULATION TISSUE. Electronically Signed Yaima Austin M.D. Gross Description Received in formalin labeled "lumbar spine infected wound thoracic," is an 8.0 x 6.0 x 1.2 cm aggregate of multiple necrotic portions of soft tissue. Office Supervisor sections are submitted in one cassette. /01/18/2018 saudi01/18/2018
--- NOTE | 2018-01-19 11:50 | PN ---
Physical Exam: SUBJECTIVE: Patient seen and examined at bedside in ICU cranky this morning otherwise feels better for OR this evening for another wound exploration and washout OBJECTIVE: Vital Signs Period Temp Pulse Resp BP Sys/Hyman Pulse Ox Last 24 Hr 98.2 F-100.5 F 66-92 18-22 94-149/40-74 94-96 GENERAL:Alert and awake and orientated to person place and self HEAD: Normal with no signs of trauma. EYES: PERRL, extraocular movements intact ENT: Moist mucous membranes. NECK: Trachea midline, full range of motion, supple. LUNGS: scattered rhonchi without wheezing-much improved HEART: Regular rate and rhythm, S1, S2 ABDOMEN: Soft, nontender, nondistended, normoactive bowel sounds, no guarding. Ventral hernia : holder in place EXTREMITIES: well-perfused, no edema. NEUROLOGICAL: Cranial nerves II through XII grossly intact. Normal speech. sensation intact in all extremities. strength 4/5 in bilateral lower extremities. Strength 5/5 in upper extremities. PSYCH: Normal mood, normal affect. SKIN:Warm, Dry, wound dressing intact Laboratory Results - last 24 hr 01/19/18 01/19/18 05:30 05:30 WBC 7.6 RBC 2.95 L Hgb 8.5 L Hct 25.2 L MCV 85.6 MCH 28.8 MCHC 33.6 RDW 14.0 Plt Count 339 MPV 7.5 Sodium 136 Potassium 3.9 Chloride 105 Carbon Dioxide 27 Anion Gap 4 L BUN 19 H Creatinine 0.8 Creat Clearance w eGFR > 60 Random Glucose 82 Calcium 8.4 L Phosphorus 3.3 Magnesium 1.8 Total Bilirubin 0.7 AST 28 ALT 63 H Alkaline Phosphatase 181 H Total Protein 4.6 L Albumin 1.6 L Active Medications Generic Name Dose Route Start Last Admin Trade Name Freq PRN Reason Stop Dose Admin Acetaminophen 1,000 mg 01/17/18 19:42 01/19/18 09:21 Tylenol - PO 1,000 mg Q6H PRN Administration PAIN LEVEL 1 - 3 Albuterol/Ipratropium 1 amp 01/17/18 20:00 01/18/18 21:40 Duoneb - NEB 1 amp RTID [facility] Administration Amino Acids 30 ml 01/18/18 17:30 01/19/18 08:28 Prosource No Carb Liquid Pkt PO 30 ml BID@0800,1730 [facility] Administration Benzocaine/Menthol 1 each 01/18/18 10:19 01/19/18 08:36 Cepacol Lozenge - MM 1 each PRN PRN Administration SORE THROAT Budesonide/Formoterol Fumarate 2 puff 01/17/18 22:00 01/19/18 09:19 Symbicort 160/4.5mcg - IH 2 puff BID [facility] Administration Chlorhexidine Gluconate 1 applic 01/17/18 22:00 01/18/18 22:20 Hibiclens For Decolonization - TP 1 applic HS [facility] Administration Docusate Sodium 100 mg 01/17/18 19:42 Colace - PO Q12H PRN CONSTIPATION Fentanyl 25 mcg 01/17/18 19:22 Sublimaze Injection - IVPUSH [id number] PRN PAIN-PACU ORDER X 4 DOSES ONLY Sodium Chloride 1,000 mls @ 75 mls/hr 01/17/18 19:42 01/18/18 22:00 Normal Saline - IV 75 mls/hr ASDIR [facility] Administration Vancomycin HCl 1 gm in 200 mls @ 250 mls/2 hr 01/18/18 00:00 01/18/18 23:53 Vancomycin 1 Gm Premix - IVPB 250 mls/2 hr BID@0000,1200 [facility] Administration Protocol Piperacillin Sod/Tazobactam 100 mls @ 200 mls/hr 01/18/18 02:00 01/19/18 09: 20 Sod 4.5 gm/ Dextrose IVPB 200 mls/hr Q8H-IV [facility] Administration Protocol Morphine Sulfate 4 mg 01/17/18 19:42 01/19/18 06:06 Morphine Sulfate IVPUSH 4 mg Q3H PRN Administration PAIN LEVEL 7 - 10 Mupirocin 1 applic 01/17/18 22:00 01/19/18 09:19 Bactroban Ointment (For Decolonization) - NS 01/22/18 21:59 1 applic BID [facility] Administration Nystatin 1 applic 01/17/18 22:00 01/19/18 09:20 Mycostatin Cream - TP 1 applic BID [facility] Administration Ondansetron HCl 4 mg 01/17/18 19:42 Zofran Injection IVPUSH Q6H PRN NAUSEA AND/OR VOMITING Oxycodone HCl 10 mg 01/17/18 19:40 Roxicodone - PO Q4H PRN PAIN LEVEL 4 - 6 Pantoprazole Sodium 40 mg 01/18/18 10:00 01/19/18 09:20 Protonix - PO 40 mg DAILY [facility] Administration Polyethylene Glycol 17 gm 01/18/18 10:00 01/19/18 09:19 Miralax (For Daily Use) - PO 17 grams DAILY [facility] Administration Promethazine HCl 12.5 mg 01/17/18 19:22 Phenergan Injection - IVPB Q6H PRN NAUSEA-FOR RESCUE AFTER 15 MIN Senna 1 tab 01/17/18 22:00 01/18/18 22:18 Senna - PO 1 tab HS [facility] Administration Trazodone HCl 150 mg 01/17/18 22:00 01/18/18 22:17 Desyrel - PO 150 mg HS [facility] Administration ASSESSMENT/PLAN: 82 year old male with a hx of COPD, chronic urinary retention, spinal stenosis, and multiple falls is post op day #16 s/p T12-L4 laminectomies, T9-pelvis posterior instrumentation, T9-S1 rand butter-lateral arthrodesis, Autograft, Allograft, and Bone marrow aspirate. Sepsis/Low grade fever: secondary to UTI and hospital acquired pneumonia. Possible patient also has a bacteremia. Patient can also have wound infection or infected hardware at this point Blood cultures growing BCx. Second set done 3 days later also growing staph species repeat (third set) blood cultures pending-no growth so far 3 cultures taken from OR 2 days ago all growing staph coag negative Plan to go back to the OR tomorrow for further wound exploration and washout. Patient has infected hardware will need lisa on longwall foreman Abx per ID as well as lifelong suppressive ABx. Will get echo to r/o endocarditis-no vegetations ID consult much appreciated Urine culture growing gram negative bacili-sensitive to zosyn continue vanco/zosyn for now as this should cover all sources of infection continue tylenol/advil for fever hold celebrex for now as this is also an NSAID Leukocytosis resolved Vanco trough 20 will recheck again today before noon dose ESR 92 Lower back pain: L1, L3 compression fractures, Kyphosis, Spinal stenosis, Segmental instability, Progressive neurological decline s/p T12-L4 laminectomies , T9-pelvis posterior instrumentation, T9-S1 rand butter-lateral arthrodesis, Autograft, Allograft, and Bone marrow aspirate. Patient tolerated the procedure well Pain is well controlled at this time Per family patient has AMS when takes trazodone and oxycodone together PT consult appreciated Incentive spirometry COPD not in exacerbation: Continue Duonebs Scheduled albuterol Nebs PRN Chest PT BID continue prednisone 5mg po daily patient on Dulera at home on symbicort here O2 PRN and while sleeping pulmonology consult appreciated incentive spirometry Chronic Urinary Retention holder in for now To continue self catheterizing at home Transaminitis: improving could be due to Zosyn use RUQ US no acute pathology Chronic constipation: miralax history of AAA s/p stenting no issues at this time acute on chronic Anemia. Hb 8.5 at this time. ICU team to repeat Hb at 8pm to ensure stability s/p 3 unit PRBC total Hb Stable at this time continue to trend and transfuse PRN FEN Regular diet Potassium 40MeQ PO once Regular diet Prophylaxis SCDs-No chemical PPx per spine surgery Protonix for GERD PT consult Case discussed with Dr. Woo Visit type - Emergency Visit Emergency Visit: Yes ED Registration Date: 01/03/18 Care time: The patient presented to the Emergency Department on the above date and was hospitalized for further evaluation of their emergent condition. - New Patient This patient is new to me today: No - Critical Care Critical Care patient: Yes Total Critical Care Time (in minutes): 35 Critical Care Statement: The care of this patient involved high complexity decision making to prevent further life threatening deterioration of the patient 's condition and/or to evaluate & treat vital organ system(s) failure or risk of failure.
[2018-01-19] MEDS: VANCOMYCIN 1 GM PREMIX - 1 GM/200 ML BAG IVPB SCH (12:06)
[2018-01-19] MEDS: SODIUM CHLORIDE 1,000 ML IV SCH (12:08)
--- NOTE | 2018-01-19 16:33 | PN ---
Progress Note (short form) - Note Progress Note: s/p operative washout yesterday sleeping now no fevers for repeat washout in am Vital Signs Period Temp Pulse Resp BP Sys/Hyman Pulse Ox Last 24 Hr 98.2 F-100.5 F 66-87 16-22 102-149/47-74 94-96 daughter at bedside prefers I donot wake him up CBC, BMP 01/19/18 05:30 01/19/18 05:30 Microbiology 01/17/18 19:38 Tissue-Other Gram Stain - Final 01/17/18 19:38 Tissue-Other Tissue Culture - Preliminary Staphylococcus Coagulase Neg 01/17/18 19:35 Abscess Gram Stain - Final 01/17/18 19:35 Abscess Wound Culture - Preliminary Staphylococcus Coagulase Neg 01/17/18 19:34 Abscess Gram Stain - Final 01/17/18 19:34 Abscess Wound Culture - Preliminary Staphylococcus Coagulase Neg 01/15/18 09:00 Blood - Peripheral Venous Blood Culture - Preliminary NO GROWTH OBTAINED AFTER 96 HOURS, INCUBATION TO CONTINUE FOR 1 DAYS. 01/15/18 06:30 Blood - Peripheral Venous Blood Culture - Preliminary NO GROWTH OBTAINED AFTER 96 HOURS, INCUBATION TO CONTINUE FOR 1 DAYS. 01/12/18 23:40 Blood - Peripheral Venous Blood Culture - Final Mr S Aureus 01/12/18 23:40 Blood - Peripheral Venous Blood Culture - Final Mr S Aureus 01/10/18 19:00 Blood - Peripheral Venous Blood Culture - Final Mr S Aureus 01/10/18 18:00 Blood - Peripheral Venous Blood Culture - Final Mr S Aureus 01/10/18 15:00 Urine - Urine - Catheterized Urine Culture - Final Escherichia Coli a/p MRSA bacteremia ecoli UTI surgical wound infection infected hardware- s/p washout 01/17 s/p laminectomy T12 to L4 -9/4 f/u operative cultures repeat blood cultures are negative continue vanco/zosyn pending operative cultures for repeat washout tomorrow will require correction abx and lifelong suppressive antibiotics to follow-d/w daughter at length- she is aware follow labs, vancomycin trough therapeutic Problem List - Problems (1) Fever Code(s): R50.9 - FEVER, UNSPECIFIED (2) Status post laminectomy Code(s): Z98.890 - OTHER SPECIFIED POSTPROCEDURAL STATES
[2018-01-19] MEDS: traZODone HCL 50 MG TABLET (FP) PO SCH (22:04)
[2018-01-19] MEDS: SENNOSIDES 8.6MG TABLET (FP) PO SCH (22:04)
[2018-01-19] MEDS: CHLORHEXIDINE GLUCONATE 4% CLEANSER FOR DECOLONIZATION TP SCH (22:05)
[2018-01-20] MEDS: SODIUM CHLORIDE 1,000 ML IV SCH ×3 (00:12→14:29)
[2018-01-20] MEDS: VANCOMYCIN 1 GM PREMIX - 1 GM/200 ML BAG IVPB SCH ×2 (00:12→12:45)
[2018-01-20] MEDS ORDERED: PIPERACILLIN/TAZOBACTAM 4.5 GM VIAL IVPB ONE ×2 (01:38→09:10)
[2018-01-20] MEDS ORDERED: DEXTROSE 5%-WATER 100 ML IVPB ONE ×2 (01:38→09:10)
[2018-01-20] MEDS: PIPERACILLIN/TAZOB 4.5 GM 4.5 GM in DEXTROSE 5%-WATER 100 ML IVPB SCH ×2 (02:02→10:00)
[2018-01-20 06:10] LABS: HEMATOCRIT 25.7 % (35.4-49); HEMOGLOBIN 8.6 GM/dL (11.7-16.9); MCH 28.8 pg (25.7-33.7); MCHC 33.4 g/dl (32.0-35.9); MEAN PLT VOLUME 7.6 fl (7.5-11.1); PLATELET COUNT 385 K/MM3 (134-434); RBC 2.98 M/mm3 (4.00-5.60); RDW 14.4 % (11.9-15.9); WHITE BLOOD COUNT 8.3 K/mm3 (4.0-10.0)
[2018-01-20 06:29] LABS: ALBUMIN 1.7 g/dl (3.4-5.0); ALK PHOS 216 U/L (45-117); ANION GAP 6 MMOL/L (8-16); BILIRUBIN,TOTAL 0.5 mg/dL (0.2-1); BLOOD UREA NITROGEN 17 mg/dL (7-18); CALCIUM 8.3 mg/dL (8.5-10.1); CHLORIDE 104 mmol/L (98-107); CO2 26 mmol/L (21-32); CREATININE 0.8 mg/dL (0.55-1.3); GLUCOSE,RANDOM 86 mg/dL (74-106); MAGNESIUM 1.7 mg/dL (1.8-2.4); PHOSPHOROUS 2.8 mg/dL (2.5-4.9); POTASSIUM 3.8 mmol/L (3.5-5.1); SGOT/AST 19 U/L (15-37); SGPT/ALT 50 U/L (13-61); SODIUM 136 mmol/L (136-145)
[2018-01-20] MEDS ORDERED: MAGNESIUM OXIDE 400 MG TABLET (FP) PO ONE ×2 (06:52→14:10)
[2018-01-20] MEDS: ALBUTEROL SO4 2.5/IPRATROPIUM 0.5 INH SOL 3 ML VIAL.NEB. NEB SCH ×3 (07:40→20:50)
[2018-01-20] MEDS ORDERED: SUCCINYLCHOLINE CHLORIDE 200 MG/10 ML VIAL ONE (07:49)
[2018-01-20] MEDS ORDERED: PROPOFOL 20 ML ONE (07:49)
[2018-01-20] MEDS: AMINO ACIDS/PROTEIN HYDROLYS 30 ML LIQUID.PKT PO SCH ×2 (08:14→17:42)
[2018-01-20] MEDS: POLYETHYLENE GLYCOL 3350 119 GM BTL PO SCH (09:00)
--- NOTE | 2018-01-20 09:03 | PN ---
Progress Note (short form) - Note Progress Note: for OR this am NAD Vital Signs Period Temp Pulse Resp BP Sys/Hyman Pulse Ox Last 24 Hr 98.2 F-99.4 F 72-90 15-24 105-153/50-76 95-95 cor-rrr lungs clear abd soft,nt exxt no edema holder unable to examine back- for OR this am CBC, BMP 01/20/18 05:30 01/20/18 05:30 Microbiology 01/15/18 09:00 Blood - Peripheral Venous Blood Culture - Final NO GROWTH AFTER 5 DAYS INCUBATION 01/17/18 19:38 Tissue-Other Gram Stain - Final 01/17/18 19:38 Tissue-Other Tissue Culture - Preliminary Staphylococcus Coagulase Neg 01/17/18 19:38 Tissue-Other Anaerobic Culture - Final 01/17/18 19:35 Abscess Gram Stain - Final 01/17/18 19:35 Abscess Wound Culture - Preliminary Staphylococcus Coagulase Neg 01/17/18 19:34 Abscess Gram Stain - Final 01/17/18 19:34 Abscess Wound Culture - Preliminary Staphylococcus Coagulase Neg 01/15/18 06:30 Blood - Peripheral Venous Blood Culture - Final NO GROWTH AFTER 5 DAYS INCUBATION 01/12/18 23:40 Blood - Peripheral Venous Blood Culture - Final Mr S Aureus 01/12/18 23:40 Blood - Peripheral Venous Blood Culture - Final Mr S Aureus 01/10/18 19:00 Blood - Peripheral Venous Blood Culture - Final Mr S Aureus 01/10/18 18:00 Blood - Peripheral Venous Blood Culture - Final Mr S Aureus 01/10/18 15:00 Urine - Urine - Catheterized Urine Culture - Final Escherichia Coli a/p MRSA bacteremia ecoli UTI surgical wound infection infected hardware- s/p washout 01/17 s/p laminectomy T12 to L4 -01/03 f/u operative cultures repeat blood cultures are negative continue vanco/zosyn pending operative cultures-suspect can d/c zosyn today after cultures are back for repeat washout todau will require chcf abx and lifelong suppressive antibiotics to follow-d/w daughter at length- yesterday-she is aware follow labs, vancomycin trough therapeutic Problem List - Problems (1) Fever Code(s): R50.9 - FEVER, UNSPECIFIED (2) Status post laminectomy Code(s): Z98.890 - OTHER SPECIFIED POSTPROCEDURAL STATES
--- NOTE | 2018-01-20 09:21 | PN ---
Physical Exam: SUBJECTIVE: Patient is a 82 y/o male with a history of urinary retention, COPD, aortic aneyursm , s/p T 12- L4 laminectomy and t9-pelvis PISF on 01/03 who is her for POD 2 Thoracolumbar wound exploration, debridement, wound culture and pulse irrigation. Patient going for washout this morning. NO complaints and no acute events overnight. OBJECTIVE: Vital Signs Temperature 99.4 F 01/20/18 06:00 Pulse Rate 86 01/20/18 08:00 Respiratory Rate 22 H 01/20/18 08:20 Blood Pressure 134/50 L 01/20/18 08:00 O2 Sat by Pulse Oximetry (%) 95 01/20/18 08:20 GENERAL: The patient is awake, alert, HEAD: Normal with no signs of trauma. EYES: extraocular movements intact LUNGS: Breath sounds equal, clear to auscultation bilaterally HEART: Regular rate and rhythm, S1, S2 without murmur, rub or gallop. ABDOMEN: Soft, nontender, nondistended, normoactive bowel sounds EXTREMITIES: 2+ pulses, warm, well-perfused, no edema. dressing over lower back PSYCH: Normal mood, normal affect. SKIN: Warm, dry, normal turgor, no rashes or lesions noted 2 CBCD WBC 8.3 K/mm3 (4.0-10.0) 01/20/18 05:30 RBC 2.98 M/mm3 (4.00-5.60) L 01/20/18 05:30 Hgb 8.6 GM/dL (11.7-16.9) L 01/20/18 05:30 Hct 25.7 % (35.4-49) L 01/20/18 05:30 MCV 86.0 fl (80-96) 01/20/18 05:30 MCHC 33.4 g/dl (32.0-35.9) 01/20/18 05:30 RDW 14.4 % (11.9-15.9) 01/20/18 05:30 Plt Count 385 K/MM3 (134-434) 01/20/18 05:30 MPV 7.6 fl (7.5-11.1) 01/20/18 05:30 CMP Sodium 136 mmol/L (136-145) 01/20/18 05:30 Potassium 3.8 mmol/L (3.5-5.1) 01/20/18 05:30 Chloride 104 mmol/L (98-107) 01/20/18 05:30 Carbon Dioxide 26 mmol/L (21-32) 01/20/18 05:30 Anion Gap 6 MMOL/L (8-16) L 01/20/18 05:30 BUN 17 mg/dL (7-18) 01/20/18 05:30 Creatinine 0.8 mg/dL (0.55-1.3) 01/20/18 05:30 Creat Clearance w eGFR > 60 (>60) 01/20/18 05:30 Calcium 8.3 mg/dL (8.5-10.1) L 01/20/18 05:30 Total Bilirubin 0.5 mg/dL (0.2-1) 01/20/18 05:30 AST 19 U/L (15-37) 01/20/18 05:30 ALT 50 U/L (13-61) 01/20/18 05:30 Alkaline Phosphatase 216 U/L (45-117) H 01/20/18 05:30 Total Protein 5.0 g/dl (6.4-8.2) L 01/20/18 05:30 Albumin 1.7 g/dl (3.4-5.0) L 01/20/18 05:30 Microbiology 01/15/18 09:00 Blood - Peripheral Venous Blood Culture - Final NO GROWTH AFTER 5 DAYS INCUBATION 01/17/18 19:38 Tissue-Other Gram Stain - Final 01/17/18 19:38 Tissue-Other Tissue Culture - Preliminary Staphylococcus Coagulase Neg 01/17/18 19:38 Tissue-Other Anaerobic Culture - Final 01/17/18 19:35 Abscess Gram Stain - Final 01/17/18 19:35 Abscess Wound Culture - Preliminary Staphylococcus Coagulase Neg 01/17/18 19:34 Abscess Gram Stain - Final 01/17/18 19:34 Abscess Wound Culture - Preliminary Staphylococcus Coagulase Neg 01/15/18 06:30 Blood - Peripheral Venous Blood Culture - Final NO GROWTH AFTER 5 DAYS INCUBATION Active Medications Acetaminophen (Tylenol -) 1,000 mg PO Q6H PRN PRN Reason: PAIN LEVEL 1 - 3 Last Admin: 01/19/18 15:10 Dose: 1,000 mg Albuterol/Ipratropium (Duoneb -) 1 amp NEB RTID [facility] Last Admin: 01/19/18 20:04 Dose: 1 amp Amino Acids (Prosource No Carb Liquid Pkt) 30 ml PO BID@0800,1730 [facility] Last Admin: 01/20/18 08:14 Dose: Not Given Benzocaine/Menthol (Cepacol Lozenge -) 1 each MM PRN PRN PRN Reason: SORE THROAT Last Admin: 01/19/18 08:36 Dose: 1 each Budesonide/Formoterol Fumarate (Symbicort 160/4.5mcg -) 2 puff IH BID [facility] Last Admin: 01/19/18 22:11 Dose: 2 puff Chlorhexidine Gluconate (Hibiclens For Decolonization -) 1 applic TP HS [facility] Last Admin: 01/19/18 22:05 Dose: 1 applic Docusate Sodium (Colace -) 100 mg PO Q12H PRN PRN Reason: CONSTIPATION Sodium Chloride (Normal Saline -) 1,000 mls @ 75 mls/hr IV ASDIR [facility] Last Admin: 01/20/18 05:51 Dose: 75 mls/hr Vancomycin HCl (Vancomycin 1 Gm Premix -) 1 gm in 200 mls @ 250 mls/2 hr IVPB BID@0000,1200 [facility]; Protocol Last Admin: 01/20/18 00:12 Dose: 250 mls/2 hr Piperacillin Sod/Tazobactam (Sod 4.5 gm/ Dextrose) 100 mls @ 200 mls/hr IVPB Q8H-IV [facility]; Protocol Last Admin: 01/20/18 02:02 Dose: 200 mls/hr Morphine Sulfate (Morphine Sulfate) 4 mg IVPUSH Q3H PRN PRN Reason: PAIN LEVEL 7 - 10 Last Admin: 01/19/18 06:06 Dose: 4 mg Mupirocin (Bactroban Ointment (For Decolonization) -) 1 applic NS BID [facility] Stop: 01/22/18 21:59 Last Admin: 01/19/18 22:05 Dose: 1 applic Nystatin (Mycostatin Cream -) 1 applic TP BID [facility] Last Admin: 01/19/18 22:11 Dose: 1 applic Ondansetron HCl (Zofran Injection) 4 mg IVPUSH Q6H PRN PRN Reason: NAUSEA AND/OR VOMITING Oxycodone HCl (Roxicodone -) 10 mg PO Q4H PRN PRN Reason: PAIN LEVEL 4 - 6 Pantoprazole Sodium (Protonix -) 40 mg PO DAILY [facility] Last Admin: 01/19/18 09:20 Dose: 40 mg Polyethylene Glycol (Miralax (For Daily Use) -) 17 gm PO DAILY [facility] Last Admin: 01/19/18 09:19 Dose: 17 grams Promethazine HCl (Phenergan Injection -) 12.5 mg IVPB Q6H PRN PRN Reason: NAUSEA-FOR RESCUE AFTER 15 MIN Senna (Senna -) 1 tab PO [facility] Last Admin: 01/19/18 22:04 Dose: 1 tab Trazodone HCl (Desyrel -) 150 mg PO [facility] Last Admin: 01/19/18 22:04 Dose: 150 mg ASSESSMENT/PLAN: Patient is a 82 y/o male with a history of urinary retention, COPD, aortic aneyursm , s/p T 12- L4 laminectomy and t9-pelvis PISF on 01/03 who is her for POD 2 Thoracolumbar wound exploration, debridement, wound culture and pulse irrigation. Neuro s/p Thoracolumbar wound exploration, debridement, wound culture and pulse irrigation - patient can eat today, breakfast tomorrow and then will be made NPO - patient to return to OR tomorrow morning (01/20) for further debridement per Dr. Roberts - morphine 4mg q3h prn - oxycodone 5mg pain 1-5 or 10 mg pain 4-6 prn - do not remove packing or dressing - received two units of blood post op, hgb etta to 9.3 - patient to return to OR today (01/20) for washout per Dr. Roberts - patient will return to OR Tuesday for wound vac removal and closure of wound Insomnia - Trazodone 150 mg po [facility] Cardio - Echo: LV normal, systolic fxn normal, EF: 60-65% - abd US: AAA with stenting, Pulm COPD - duoneb 1 amp - symbicort - continue to use incentive spirometer - CXR: new atelectasis or infiltrate at [facility] on 01/14, on abx for possible pna GI Nausea 2/2 to infection and pain medication - promethazine 12.5 - pantoprazole 40 mg daily for ppx - zofran 4mg q6h Transaminitis : resolved - continue to trend AST/ALT - trending down - abd US: mild hepatomegaly, moderate distended gallbladder Constipation - Miralax and docusate daily Urinary chronic urinary retention - holder in at present time - self cathetarization at home Infectious Disease MRSA bacteremia/ infected hardware - Vancomycin 1 gm ( day 10) - Zosyn 4.5 gm - blood cultures 01/12: MRSA, repeat blood cx negative - abscess cx and tissue cx: staph coagulase negative - Urine CX: E. Coli - f/u echo to r/o endocarditis - tylenol 650 mg for fever > 100.3 - f/u Dr. Lopez, will require lifelong suppressive antibiotics - per ID can likely DC zosyn today once cultures are back Hematology DVT ppx - SCD's FEN - k repleted, keep >4 - LR @ 75 - regular diet Dispo: spoke with PT and will try to get out of bed tomorrow, f/u after tuesday surgery Visit type - Emergency Visit Emergency Visit: No - New Patient This patient is new to me today: No - Critical Care Critical Care patient: Yes Total Critical Care Time (in minutes): 40 Critical Care Statement: The care of this patient involved high complexity decision making to prevent further life threatening deterioration of the patient 's condition and/or to evaluate & treat vital organ system(s) failure or risk of failure.
[2018-01-20] MEDS ORDERED: ePHEDrine SULFATE 50 MG/1 ML AMPULE ONE (09:40)
[2018-01-20] MEDS ORDERED: DEXAMETHASONE SOD PHOSPHATE 4 MG/1 ML VIAL ONE (09:59)
[2018-01-20] MEDS ORDERED: ONDANSETRON 4 MG/2 ML VIAL ONE (09:59)
--- NOTE | 2018-01-20 10:39 | PN ---
Physical Exam: SUBJECTIVE: Patient seen and examined at bedside in the ICU going to OR for washout of back this morning Afebrile no complaints Daughter at bedside Updates given and all questions answered. She was also updated by the surgeon. OBJECTIVE: Vital Signs Period Temp Pulse Resp BP Sys/Hyman Pulse Ox Last 24 Hr 98.2 F-99.4 F 74-90 15-24 105-153/50-76 95-95 GENERAL:Alert and awake and orientated to person place and self. when asked about the year he thought it was 2014 and was reoriented HEAD: Normal with no signs of trauma. EYES: PERRL, extraocular movements intact ENT: Moist mucous membranes. NECK: Trachea midline, full range of motion, supple. LUNGS: scattered rhonchi without wheezing L>R HEART: Regular rate and rhythm, S1, S2 ABDOMEN: Soft, nontender, nondistended, normoactive bowel sounds, no guarding. Ventral hernia : holder in place EXTREMITIES: well-perfused, no edema. NEUROLOGICAL: Cranial nerves II through XII grossly intact. Normal speech. sensation intact in all extremities. strength 4/5 in bilateral lower extremities. Strength 5/5 in upper extremities. PSYCH: Normal mood, normal affect. SKIN:Warm, Dry, wound VAC dressing intact. Vac draining serosangenous drainage Laboratory Results - last 24 hr 01/19/18 01/20/18 01/20/18 12:15 05:30 05:30 WBC 8.3 RBC 2.98 L Hgb 8.6 L Hct 25.7 L MCV 86.0 MCH 28.8 MCHC 33.4 RDW 14.4 Plt Count 385 MPV 7.6 Sodium 136 Potassium 3.8 Chloride 104 Carbon Dioxide 26 Anion Gap 6 L BUN 17 Creatinine 0.8 Creat Clearance w eGFR > 60 Random Glucose 86 Calcium 8.3 L Phosphorus 2.8 Magnesium 1.7 L Total Bilirubin 0.5 AST 19 ALT 50 Alkaline Phosphatase 216 H Total Protein 5.0 L Albumin 1.7 L Vancomycin Pre-Dose 20.7 Active Medications Generic Name Dose Route Start Last Admin Trade Name Freq PRN Reason Stop Dose Admin Acetaminophen 1,000 mg 01/17/18 19:42 01/19/18 15:10 Tylenol - PO 1,000 mg Q6H PRN Administration PAIN LEVEL 1 - 3 Albuterol/Ipratropium 1 amp 01/17/18 20:00 09/21/18 07:40 Duoneb - NEB 1 amp RTID [facility] Administration Amino Acids 30 ml 01/18/18 17:30 01/20/18 08:14 Prosource No Carb Liquid Pkt PO Not Given BID@0800,1730 [facility] Benzocaine/Menthol 1 each 01/18/18 10:19 01/19/18 08:36 Cepacol Lozenge - MM 1 each PRN PRN Administration SORE THROAT Budesonide/Formoterol Fumarate 2 puff 01/17/18 22:00 01/19/18 22:11 Symbicort 160/4.5mcg - IH 2 puff BID [facility] Administration Chlorhexidine Gluconate 1 applic 01/17/18 22:00 01/19/18 22:05 Hibiclens For Decolonization - TP 1 applic HS [facility] Administration Docusate Sodium 100 mg 01/17/18 19:42 Colace - PO Q12H PRN CONSTIPATION Sodium Chloride 1,000 mls @ 75 mls/hr 01/17/18 19:42 01/20/18 05:51 Normal Saline - IV 75 mls/hr ASDIR [facility] Administration Vancomycin HCl 1 gm in 200 mls @ 250 mls/2 hr 01/18/18 00:00 01/20/18 00:12 Vancomycin 1 Gm Premix - IVPB 250 mls/2 hr BID@0000,1200 [facility] Administration Protocol Piperacillin Sod/Tazobactam 100 mls @ 200 mls/hr 01/18/18 02:00 01/20/18 02: 02 Sod 4.5 gm/ Dextrose IVPB 200 mls/hr Q8H-IV [facility] Administration Protocol Morphine Sulfate 4 mg 01/17/18 19:42 01/19/18 06:06 Morphine Sulfate IVPUSH 4 mg Q3H PRN Administration PAIN LEVEL 7 - 10 Mupirocin 1 applic 01/17/18 22:00 01/19/18 22:05 Bactroban Ointment (For Decolonization) - NS 01/22/18 21:59 1 applic BID [facility] Administration Nystatin 1 applic 01/17/18 22:00 01/19/18 22:11 Mycostatin Cream - TP 1 applic BID [facility] Administration Ondansetron HCl 4 mg 01/17/18 19:42 Zofran Injection IVPUSH Q6H PRN NAUSEA AND/OR VOMITING Oxycodone HCl 10 mg 01/17/18 19:40 Roxicodone - PO Q4H PRN PAIN LEVEL 4 - 6 Pantoprazole Sodium 40 mg 01/18/18 10:00 01/19/18 09:20 Protonix - PO 40 mg DAILY [facility] Administration Polyethylene Glycol 17 gm 01/18/18 10:00 01/19/18 09:19 Miralax (For Daily Use) - PO 17 grams DAILY [facility] Administration Promethazine HCl 12.5 mg 01/17/18 19:22 Phenergan Injection - IVPB Q6H PRN NAUSEA-FOR RESCUE AFTER 15 MIN Senna 1 tab 01/17/18 22:00 01/19/18 22:04 Senna - PO 1 tab HS [facility] Administration Trazodone HCl 150 mg 01/17/18 22:00 01/19/18 22:04 Desyrel - PO 150 mg HS [facility] Administration ASSESSMENT/PLAN: 82 year old male with a hx of COPD, chronic urinary retention, spinal stenosis, and multiple falls is post op day #17 s/p T12-L4 laminectomies, T9-pelvis posterior instrumentation, T9-S1 glove factory sewer-lateral arthrodesis, Autograft, Allograft, and Bone marrow aspirate. s/p POD# 3 s/p washout and cultures sent POD #0 s/p washout and wound VAC placement. Sepsis/Low grade fever: secondary to UTI and hospital acquired pneumonia. Possible patient also has a bacteremia. Patient also has wound infection and infected hardware at this point. Blood cultures growing BCx. Second set done 3 days later also growing MRSA repeat (third set) blood cultures pending-no growth after 5 days 3 cultures taken from OR 2 days ago all growing staph coag negative OR today for further wound exploration and washout. Patient has infected hardware will need to be on fpc Abx per ID as well as lifelong suppressive ABx. Will get echo to r/o endocarditis-no vegetations ID consult much appreciated Urine culture growing gram negative bacili-sensitive to zosyn continue vanco/zosyn for now as this should cover all sources of infection- Spoke with Dr. Lopez today. Will stop Zosyn as all cultures are MRSA sensitive to vanco so far. Previously cultures start off as staph coag negative and turn into MRSA continue tylenol/advil for fever hold celebrex for now as this is also an NSAID Leukocytosis resolved Vanco trough 20 from yesterday will continue Vanco ESR 92 Lower back pain: L1, L3 compression fractures, Kyphosis, Spinal stenosis, Segmental instability, Progressive neurological decline s/p T12-L4 laminectomies , T9-pelvis posterior instrumentation, T9-S1 glove factory sewer-lateral arthrodesis, Autograft, Allograft, and Bone marrow aspirate. s/p POD# 3 s/p washout and cultures sent POD #0 s/p washout and wound VAC placement. Patient tolerated the procedure well Pain is well controlled at this time Per family patient has AMS when takes trazodone and oxycodone together PT consult appreciated Incentive spirometry Dr. Roberts spoke to family Might take patient back to OR Tuesday for removal of VAC and closure of wound. COPD not in exacerbation: Continue Duonebs Scheduled albuterol Nebs PRN Chest PT BID patient on Dulera at home on symbicort here O2 PRN and while sleeping pulmonology consult appreciated incentive spirometry Chronic Urinary Retention holder in for now To continue self catheterizing at home Transaminitis: improving could be due to Zosyn use RUQ US no acute pathology Chronic constipation: miralax history of AAA s/p stenting no issues at this time acute on chronic Anemia. Hb 8.6 at this time. s/p 3 unit PRBC total for this hospital stay Hb Stable at this time continue to trend and transfuse PRN FEN low dose IVF while NPO awaiting for surgery Regular diet magnesium 800mg po once for hypomagnesemia Regular diet Prophylaxis SCDs-No chemical PPx per spine surgery Protonix for GERD PT consult Case discussed with Dr. Melchor Visit type - Emergency Visit Emergency Visit: No - New Patient This patient is new to me today: No - Critical Care Critical Care patient: Yes Total Critical Care Time (in minutes): 40 Critical Care Statement: The care of this patient involved high complexity decision making to prevent further life threatening deterioration of the patient 's condition and/or to evaluate & treat vital organ system(s) failure or risk of failure.
--- NOTE | 2018-01-20 11:03 | OP ---
Operative Note - Note: Operative Date: 01/20/18 Pre-Operative Diagnosis: Infected thoracic/lumber spinal incision s/p posterior fusion Operation: Washout, application of wound vac Findings: as dictated Post-Operative Diagnosis: Same as Pre-op Surgeon: Mihir Roberts Museum Tour Guide: Mee Barboza Anesthesiologist/[employer]: Ariela Weeks Anesthesia: General Specimens Removed: none Estimated Blood Loss (mls): 15 Drains & Tubes with Location: wound vac Blood Volume Replaced (mls): 0 Fluid Volume Replaced (mls): 500 Operative Report Dictated: Yes
--- NOTE | 2018-01-20 11:06 | SURG ---
Surgery Pig Breeder Note Pig Breeder: Mee Barboza PA-C (Suzy) Date of Service: 01/20/18 Diagnosis: Infected spinal incision s/p posterior thoracic/lumbar fusion Procedure: Spinal incision washout, application of wound vac I was present for the entirety of the operative procedure. For further detail, please refer to operative report. Visit type - Case Type Case Type: Scheduled - Emergency Emergency Visit: No - New patient This patient is new to me today: Yes Date on this admission: 01/23/18 - Critical Care Critical Care patient: No
--- NOTE | 2018-01-20 11:08 | OP ---
DATE OF OPERATION: DATE OF DICTATION: 01/20/2018 SURGEON: Mihir Roberts MD HYDRAULIC LIFT OPERATOR: Yanely Barboza PREOPERATIVE DIAGNOSIS: Septic spine wound, thoracolumbosacral spine. POSTOPERATIVE DIAGNOSIS: Septic spine wound, thoracolumbosacral spine. OPERATION PERFORMED: 1. Removal of packs. 2. Debridement soft tissue, bone, and skin. 3. Washout 5 L of saline. 4. Insertion of wound VAC negative suction apparatus. ANESTHESIA: General. DESCRIPTION OF PROCEDURE: The patient was correctly identified and brought to the operating room and placed prone on the Hugo table. The thoracolumbar spine was draped and prepped in the routine manner with Betadine scrub solution. Wiped off with alcohol. DuraPrep applied. Debridement of bone, soft tissue, skin was performed. Washout with Betadine scrub. Wound VAC was placed. The end wound loosely approximated with Prolene sutures. Wound VAC started. No problems with the suction. Return in 72 hours for definitive hopeful closure. MD SAMARA Dunn/[id number]
[2018-01-20] MEDS: MUPIROCIN 2% TOPICAL OINTMENT FOR DECOLONIZATION NS SCH ×2 (11:51→22:21)
--- NOTE | 2018-01-20 11:54 | PN ---
Teaching Attending Note Name of Resident: Yaima Michelle ATTENDING PHYSICIAN STATEMENT I saw and evaluated the patient. I reviewed the resident's note and discussed the case with the resident. I agree with the resident's findings and plan as documented. SUBJECTIVE: Patient seen and examined in the ICU. S/P washout of an infected thoracic/ lumber spinal incision S/P posterior fusion. Just returned from the OR. Reports pain is adequately controlled. No CP or SOB. Plan for VAC on Tuesday. OBJECTIVE: Intake & Output 01/17/18 01/18/18 01/19/18 01/20/18 23:59 23:59 23:59 23:59 Intake Total 3950 3150 3200 1275 Output Total 4150 1400 1600 420 Balance -200 1750 1600 855 Weight 199 lb 199 lb 4.8 oz 196 lb 5 oz Last Vital Signs Temp Pulse Resp BP Pulse Ox 99.4 F 86 22 H 134/50 L 95 01/20/18 06:00 01/20/18 08:00 01/20/18 08:20 01/20/18 08:00 01/20/18 08:20 Active Medications Acetaminophen (Tylenol -) 1,000 mg PO Q6H PRN PRN Reason: PAIN LEVEL 1 - 3 Last Admin: 01/19/18 15:10 Dose: 1,000 mg Albuterol/Ipratropium (Duoneb -) 1 amp NEB RTID [facility] Last Admin: 01/20/18 07:40 Dose: 1 amp Amino Acids (Prosource No Carb Liquid Pkt) 30 ml PO BID@0800,1730 [facility] Last Admin: 01/20/18 08:14 Dose: Not Given Benzocaine/Menthol (Cepacol Lozenge -) 1 each MM PRN PRN PRN Reason: SORE THROAT Last Admin: 01/19/18 08:36 Dose: 1 each Budesonide/Formoterol Fumarate (Symbicort 160/4.5mcg -) 2 puff IH BID [facility] Last Admin: 01/19/18 22:11 Dose: 2 puff Chlorhexidine Gluconate (Hibiclens For Decolonization -) 1 applic TP HS [facility] Docusate Sodium (Colace -) 100 mg PO Q12H PRN PRN Reason: CONSTIPATION Sodium Chloride (Normal Saline -) 1,000 mls @ 75 mls/hr IV ASDIR [facility] Last Admin: 01/20/18 05:51 Dose: 75 mls/hr Vancomycin HCl (Vancomycin 1 Gm Premix -) 1 gm in 200 mls @ 250 mls/2 hr IVPB BID@0000,1200 [facility]; Protocol Last Admin: 01/20/18 00:12 Dose: 250 mls/2 hr Piperacillin Sod/Tazobactam (Sod 4.5 gm/ Dextrose) 100 mls @ 200 mls/hr IVPB Q8H-IV [facility]; Protocol Last Admin: 01/20/18 10:00 Dose: 200 mls/hr Lactated Ringer's (Lactated Ringers Solution) 1,000 ml in 1,000 mls @ 75 mls/ hr IV ASDIR [facility] Morphine Sulfate (Morphine Sulfate) 4 mg IVPUSH Q3H PRN PRN Reason: PAIN LEVEL 7 - 10 Last Admin: 01/19/18 06:06 Dose: 4 mg Mupirocin (Bactroban Ointment (For Decolonization) -) 1 applic NS BID [facility] Stop: 01/25/18 21:59 Nystatin (Mycostatin Cream -) 1 applic TP BID [facility] Last Admin: 01/19/18 22:11 Dose: 1 applic Ondansetron HCl (Zofran Injection) 4 mg IVPUSH Q6H PRN PRN Reason: NAUSEA AND/OR VOMITING Oxycodone HCl (Roxicodone -) 10 mg PO Q4H PRN PRN Reason: PAIN LEVEL 4 - 6 Pantoprazole Sodium (Protonix -) 40 mg PO DAILY [facility] Last Admin: 01/19/18 09:20 Dose: 40 mg Polyethylene Glycol (Miralax (For Daily Use) -) 17 gm PO DAILY [facility] Last Admin: 01/19/18 09:19 Dose: 17 grams Promethazine HCl (Phenergan Injection -) 12.5 mg IVPB Q6H PRN PRN Reason: NAUSEA-FOR RESCUE AFTER 15 MIN Senna (Senna -) 1 tab PO HS [facility] Last Admin: 01/19/18 22:04 Dose: 1 tab Trazodone HCl (Desyrel -) 150 mg PO HS [facility] Last Admin: 01/19/18 22:04 Dose: 150 mg Gen: NAD at rest, dressing intact posterior neck. Heart: RRR Lung: less rhonchi Abd: soft, nontender Ext: no edema Laboratory Results - last 24 hr 01/19/18 01/20/18 01/20/18 12:15 05:30 05:30 WBC 8.3 RBC 2.98 L Hgb 8.6 L Hct 25.7 L MCV 86.0 MCH 28.8 MCHC 33.4 RDW 14.4 Plt Count 385 MPV 7.6 Sodium 136 Potassium 3.8 Chloride 104 Carbon Dioxide 26 Anion Gap 6 L BUN 17 Creatinine 0.8 Creat Clearance w eGFR > 60 Random Glucose 86 Calcium 8.3 L Phosphorus 2.8 Magnesium 1.7 L Total Bilirubin 0.5 AST 19 ALT 50 Alkaline Phosphatase 216 H Total Protein 5.0 L Albumin 1.7 L Vancomycin Pre-Dose 20.7 ASSESSMENT AND PLAN: Lumbar Compression Fractures s/p T12-L4 Laminectomies/T9-pelvis instrumentation/T9-S1 posterior lateral arthrodesis Acute COPD Exacerbation improved Chronic Hypoxic Respiratory Failure Pneumonia Back Wound Infection MRSA Bacteremia Anemia - ABX per ID, note will need lead pastor suppressive ABX as well - Plan for OR Tuesday for VAC placement - inhaled bronchodilators standing and PRN - pain control - Incentive spirometry - O2 to keep SpO2 >90% - PO as tolerated - bowel regimen - rehab/PT - DVT prophylaxis - Post operative ICU monitoring Dr Gross Critical care time spent in reviewing chart, evaluating patient and formulating plan - 36 minutes.
[2018-01-20] MEDS: LACTATED RINGERS SOLUTION 1,000 ML/1,000 ML INFUS.BAG IV SCH (12:00)
[2018-01-20] MEDS: PANTOPRAZOLE 40 MG TABLET (FP) PO SCH (13:00)
--- NOTE | 2018-01-20 13:51 | PN ---
Teaching Attending Note Name of Resident: Nahid Mata ATTENDING PHYSICIAN STATEMENT I saw and evaluated the patient. I reviewed the resident's note and discussed the case with the resident. I agree with the resident's findings and plan as documented. SUBJECTIVE:resting comfortable. OBJECTIVE: Last Vital Signs Temp Pulse Resp BP Pulse Ox 99.4 F 86 22 H 134/50 L 95 01/20/18 06:00 01/20/18 08:00 01/20/18 08:20 01/20/18 08:00 01/20/18 08:20 General NAD CV S1 S2 + Lungs CTA B/L anteriorly Extremiteis no pedal edema ASSESSMENT AND PLAN: 82 year old man a history of COPD on home O2, chronic urinary retention, lumbar compression fractures with spinal stenosis who was admitted for lumbar spine surgery and found to have MRSA infected hardware with bacteremia 1. Sepsis secondary to E. coli UTI, pneumonia, surgical wound infection with MRSA bacteremia- s/p incision, drainage, washout of deep thoracic and lumbar spine 01/17 and washout of an infected thoracic/lumber spinal incision S/P posterior fusion with wound vac placement 01/20. tolerated procedure well. cont Vanco/Zosyn. repeat BCx are negative. recent wound Cx with +organism. will f/u Cx taken from surgery today. possible additional washouts depending on what Cx from today shows. anticipated for Tuesday 01/23. further recommendations per surgery and ID. cont pain control. 2. Lumbar spinal stenosis, lumbar compression fractures, lumbar kyphosis- s/p T12-L4 laminectomies, T9-pelvis posterior instrumentation, T9-S1 posterolateral arthrodesis 01/03 3. Acute exacerbation of COPD- resolved. off steroids. cont inhlaers. nebs prn. supplemental oxygen as needed. 4. Chronic hypoxic respiratory failure-saturating wel on home O2. Oxygen to maintain saturation >90% 5. Anemia- Likely acute blood loss and sepsis on chronic anemia. Transfused 3 units PRBCs this admission. normal transfusion thresholds. no indication for transfusion 6. Chronic urinary retention- Patient does self-catheterization at home 7. Constipation- last BM 3 days ago. will need to monitor as on opiates. cont stool regimen. consider suppository if no BM in next 24H 8. DVT ppx- SCD. hold pharmacologic anticoag with surgery 9. MICU monitoring 10. Spoke with Daughter present at bedside. all questions answered. The care of this patient involved high complexity decision making to prevent further life threatening deterioration of the patient's condition and/or to evaluate & treat vital organ system(s) failure or risk of failure. 36 minutes
[2018-01-20] MEDS ORDERED: PROMETHAZINE HCL 25 MG/1 ML VIAL IVPB PRN (14:10)
[2018-01-20] MEDS ORDERED: DOCUSATE SODIUM 100 MG CAPSULE (FP) PO PRN (14:10)
[2018-01-20] MEDS ORDERED: BENZOCAINE/MENTH/CETYLPYRD CL 1 EACH LOZENGE MM PRN (14:10)
[2018-01-20] MEDS ORDERED: oxyCODONE HCL 5 MG TABLET PO PRN (14:10)
[2018-01-20] MEDS ORDERED: morphine SULFATE 4 MG/ML VIAL IVPUSH PRN (14:10)
[2018-01-20] MEDS ORDERED: ONDANSETRON 4 MG/2 ML VIAL IVPUSH PRN (14:10)
[2018-01-20] MEDS: NYSTATIN 100,000 UNIT/GM TOPICAL CREAM 15 GM TUBE TP SCH ×2 (14:36→22:36)
[2018-01-20] MEDS: BUDESONIDE/FORMETEROL FUMARATE 160/4.5 mcg INHALER IH SCH ×2 (14:36→22:37)
[2018-01-20] MEDS ORDERED: PT OWN MED DRAWER 7, Y5N ONE (21:11)
[2018-01-20] MEDS ORDERED: SENNOSIDES 8.6MG TABLET (FP) PO SCH (22:00)
[2018-01-20] MEDS: traZODone HCL 50 MG TABLET (FP) PO SCH (22:21)
[2018-01-20] MEDS: CHLORHEXIDINE GLUCONATE 4% CLEANSER FOR DECOLONIZATION TP SCH (22:22)
[2018-01-21] MEDS: VANCOMYCIN 1 GM PREMIX - 1 GM/200 ML BAG IVPB SCH ×3 (00:35→23:53)
[2018-01-21 05:56] LABS: HEMATOCRIT 24.9 % (35.4-49); HEMOGLOBIN 8.3 GM/dL (11.7-16.9); MCH 28.3 pg (25.7-33.7); MCHC 33.2 g/dl (32.0-35.9); MEAN CELL VOLUME 85.2 fl (80-96); MEAN PLT VOLUME 7.7 fl (7.5-11.1); PLATELET COUNT 356 K/MM3 (134-434); RBC 2.92 M/mm3 (4.00-5.60); RDW 14.2 % (11.9-15.9); WHITE BLOOD COUNT 7.2 K/mm3 (4.0-10.0)
[2018-01-21 06:38] LABS: ALBUMIN 1.6 g/dl (3.4-5.0); ALK PHOS 153 U/L (45-117); ANION GAP 7 MMOL/L (8-16); BILIRUBIN,TOTAL 0.3 mg/dL (0.2-1); BLOOD UREA NITROGEN 19 mg/dL (7-18); CALCIUM 8.9 mg/dL (8.5-10.1); CHLORIDE 106 mmol/L (98-107); CO2 26 mmol/L (21-32); CREATININE 0.7 mg/dL (0.55-1.3); GLUCOSE,RANDOM 121 mg/dL (74-106); POTASSIUM 3.9 mmol/L (3.5-5.1); SGOT/AST 18 U/L (15-37); SGPT/ALT 40 U/L (13-61); SODIUM 139 mmol/L (136-145); TOT PROT 4.6 g/dl (6.4-8.2)
[2018-01-21] MEDS: ALBUTEROL SO4 2.5/IPRATROPIUM 0.5 INH SOL 3 ML VIAL.NEB. NEB SCH ×3 (07:30→21:05)
--- NOTE | 2018-01-21 08:09 | PN ---
Progress Note (short form) - Note Progress Note: Pulm/CCM F/u SUBJECTIVE: Patient seen and examined in the ICU. -slept well, no pain -wants to eat -afebrile OBJECTIVE: Vital Signs Temp 98.9 F 01/21/18 06:00 Pulse 76 01/21/18 06:00 Resp 16 01/21/18 06:00 BP 137/63 01/21/18 06:00 Pulse Ox 95 01/20/18 20:00 Intake & Output 01/20/18 01/20/18 01/21/18 11:59 23:59 11:59 Intake Total 1275 1410 1200 Output Total 658 129 4209 Balance 855 510 200 Weight 89.046 kg 88.632 kg Intake: IV 925 1200 900 LACTATED RINGERS SOLUTION 600 900 1,000 ml In 1,000 ml @ 75 mls/hr IV ASDIR [facility] Rx #:[id number] Normal Saline - 1,000 ml 525 @ 75 mls/hr IV ASDIR [facility] Rx#:[id number] Normal Saline - 1,000 ml 600 @ 75 mls/hr IV ASDIR [facility] Rx#:[id number] IVPB 350 250 Oral 210 50 Output: Urine 526 014 9162 Reyes [phone] Estimated Blood Loss 20 Other: Voiding Method Indwelling Catheter Indwelling Catheter Bowel Movement No No No Weight Measurement Method [facility] Current Medications Acetaminophen (Tylenol -) 1,000 mg PO Q6H PRN PRN Reason: PAIN LEVEL 1 - 3 Albuterol/Ipratropium (Duoneb -) 1 amp NEB RTID [facility] Last Admin: 01/20/18 20:50 Dose: 1 amp Amino Acids (Prosource No Carb Liquid Pkt) 30 ml PO BID@0800,1730 [facility] Last Admin: 01/20/18 17:42 Dose: 30 ml Benzocaine/Menthol (Cepacol Lozenge -) 1 each MM PRN PRN PRN Reason: SORE THROAT Budesonide/Formoterol Fumarate (Symbicort 160/4.5mcg -) 2 puff IH BID [facility] Last Admin: 01/20/18 22:37 Dose: 2 puff Chlorhexidine Gluconate (Hibiclens For Decolonization -) 1 applic TP HS [facility] Last Admin: 09/21/18 22:22 Dose: 1 applic Docusate Sodium (Colace -) 100 mg PO Q12H PRN PRN Reason: CONSTIPATION Lactated Ringer's (Lactated Ringers Solution) 1,000 ml in 1,000 mls @ 75 mls/ hr IV ASDIR [facility] Last Admin: 01/20/18 12:00 Dose: 75 mls/hr Sodium Chloride (Normal Saline -) 1,000 mls @ 75 mls/hr IV ASDIR [facility] Last Admin: 01/20/18 14:29 Dose: Not Given Vancomycin HCl (Vancomycin 1 Gm Premix -) 1 gm in 200 mls @ 250 mls/2 hr IVPB BID@0000,1200 [facility]; Protocol Last Admin: 01/21/18 00:35 Dose: 250 mls/2 hr Morphine Sulfate (Morphine Sulfate) 4 mg IVPUSH Q3H PRN PRN Reason: PAIN LEVEL 7 - 10 Mupirocin (Bactroban Ointment (For Decolonization) -) 1 applic NS BID [facility] Stop: 01/25/18 21:59 Last Admin: 01/20/18 22:21 Dose: 1 applic Nystatin (Mycostatin Cream -) 1 applic TP BID [facility] Last Admin: 01/20/18 22:36 Dose: 1 applic Ondansetron HCl (Zofran Injection) 4 mg IVPUSH Q6H PRN PRN Reason: NAUSEA AND/OR VOMITING Oxycodone HCl (Roxicodone -) 10 mg PO Q4H PRN PRN Reason: PAIN LEVEL 4 - 6 Pantoprazole Sodium (Protonix -) 40 mg PO DAILY [facility] Polyethylene Glycol (Miralax (For Daily Use) -) 17 gm PO DAILY [facility] Promethazine HCl (Phenergan Injection -) 12.5 mg IVPB Q6H PRN PRN Reason: NAUSEA-FOR RESCUE AFTER 15 MIN Senna (Senna -) 1 tab PO HS [facility] Last Admin: 01/20/18 22:22 Dose: 1 tab Trazodone HCl (Desyrel -) 150 mg PO HS [facility] Last Admin: 01/20/18 22:21 Dose: 150 mg Gen: NAD at rest, dressing intact posterior neck, minimal pain Heart: RRR Lung: few scattered rhonchi Abd: soft, nontender Ext: no edema Neuro: grossly intact Microbiology 01/20/18 09:50 Wound-Other Gram Stain - Final 01/17/18 19:34 Abscess Gram Stain - Final 01/17/18 19:34 Abscess Wound Culture - Preliminary Staphylococcus Species 01/17/18 19:35 Abscess Gram Stain - Final 01/17/18 19:35 Abscess Wound Culture - Preliminary Staphylococcus Species 01/17/18 19:38 Tissue-Other Gram Stain - Final 01/17/18 19:38 Tissue-Other Tissue Culture - Preliminary Staphylococcus Species 01/17/18 19:38 Tissue-Other Anaerobic Culture - Final 01/15/18 09:00 Blood - Peripheral Venous Blood Culture - Final NO GROWTH AFTER 5 DAYS INCUBATION 01/15/18 06:30 Blood - Peripheral Venous Blood Culture - Final NO GROWTH AFTER 5 DAYS INCUBATION 01/12/18 23:40 Blood - Peripheral Venous Blood Culture - Final S Aureus 01/12/18 23:40 Blood - Peripheral Venous Blood Culture - Final S Aureus 01/10/18 19:00 Blood - Peripheral Venous Blood Culture - Final S Aureus 01/10/18 18:00 Blood - Peripheral Venous Blood Culture - Final S Aureus 01/10/18 15:00 Urine - Urine - Catheterized Urine Culture - Final Escherichia Coli CBC,CMP WBC 7.2 K/mm3 (4.0-10.0) 01/21/18 05:30 RBC 2.92 M/mm3 (4.00-5.60) L 01/21/18 05:30 Hgb 8.3 GM/dL (11.7-16.9) L 01/21/18 05:30 Hct 24.9 % (35.4-49) L 01/21/18 05:30 MCV 85.2 fl (80-96) 01/21/18 05:30 MCH 28.3 pg (25.7-33.7) 01/21/18 05:30 MCHC 33.2 g/dl (32.0-35.9) 01/21/18 05:30 RDW 14.2 % (11.9-15.9) 01/21/18 05:30 Plt Count 356 K/MM3 (134-434) 01/21/18 05:30 MPV 7.7 fl (7.5-11.1) 01/21/18 05:30 Absolute Neuts (auto) 6.8 K/mm3 (1.5-8.0) 01/17/18 07:00 Neutrophils % 80.7 % (42.8-82.8) 01/17/18 07:00 Neutrophils % (Manual) 45.5 % (42.8-82.8) 01/07/18 07:00 Band Neutrophils % 0.0 % 01/07/18 07:00 Lymphocytes % 12.0 % (8-40) 01/17/18 07:00 Lymphocytes % (Manual) 28.3 % (8-40) 01/07/18 07:00 Monocytes % 5.5 % (3.8-10.2) 01/17/18 07:00 Monocytes % (Manual) 22 % (3.8-10.2) H 01/07/18 07:00 Eosinophils % 1.6 % (0-4.5) 01/17/18 07:00 Eosinophils % (Manual) 3.0 % (0-4.5) 01/07/18 07:00 Basophils % 0.2 % (0-2.0) 01/17/18 07:00 Basophils % (Manual) 0.0 % (0-2.0) 01/07/18 07:00 Myelocytes % (Man) 0 % (0-2) 01/07/18 07:00 Promyelocytes % (Man) 0 % (0-2) 01/07/18 07:00 Blast Cells % (Manual) 0 % (0-0) 01/07/18 07:00 Nucleated RBC % 0 % (0-0) 01/17/18 07:00 Metamyelocytes 0 % (0-2) 01/07/18 07:00 Hypochromia 1+ 01/07/18 07:00 Platelet Estimate Normal 01/07/18 07:00 Polychromasia 0 01/07/18 07:00 Poikilocytosis 1+ 01/07/18 07:00 Anisocytosis 0 01/07/18 07:00 Microcytosis 0 01/07/18 07:00 Macrocytosis 0 01/07/18 07:00 ESR 92 mm/hr (0-20) H 01/17/18 07:00 Sodium 139 mmol/L (136-145) 01/21/18 05:30 Potassium 3.9 mmol/L (3.5-5.1) 01/21/18 05:30 Chloride 106 mmol/L (98-107) 01/21/18 05:30 Carbon Dioxide 26 mmol/L (21-32) 01/21/18 05:30 Anion Gap 7 MMOL/L (8-16) L 01/21/18 05:30 BUN 19 mg/dL (7-18) H 01/21/18 05:30 Creatinine 0.7 mg/dL (0.55-1.3) 01/21/18 05:30 Creat Clearance w eGFR > 60 (>60) 01/21/18 05:30 Random Glucose 121 mg/dL (74-106) H 01/21/18 05:30 Lactic Acid 0.7 mmol/L (0.0-2.0) 01/10/18 16:25 Calcium 8.9 mg/dL (8.5-10.1) 01/21/18 05:30 Phosphorus 3.0 mg/dL (2.5-4.9) 01/21/18 05:30 Magnesium 2.0 mg/dL (1.8-2.4) 01/21/18 05:30 Total Bilirubin 0.3 mg/dL (0.2-1) 01/21/18 05:30 AST 18 U/L (15-37) 01/21/18 05:30 ALT 40 U/L (13-61) 01/21/18 05:30 Alkaline Phosphatase 153 U/L (45-117) H 01/21/18 05:30 C-Reactive Protein 11.2 MG/DL (0.00-0.3) H 01/17/18 07:00 Total Protein 4.6 g/dl (6.4-8.2) L 01/21/18 05:30 Albumin 1.6 g/dl (3.4-5.0) L 01/21/18 05:30 ASSESSMENT AND PLAN: Lumbar Compression Fractures s/p T12-L4 Laminectomies/T9-pelvis instrumentation/T9-S1 posterior lateral arthrodesis Acute COPD Exacerbation improved Chronic Hypoxic Respiratory Failure Pneumonia Back Wound Infection MRSA Bacteremia Anemia - ABX per ID, note will need fdc suppressive ABX as well , wound cxl in lab from yesterday, should get PICC while in OR - Plan for OR Tuesday for VAC placement - inhaled bronchodilators standing and PRN - pain control - Incentive spirometry - O2 to keep SpO2 >90% - Reg diet - bowel regimen - rehab/PT - DVT prophylaxis - Ok for floor from CCM standpoint [place]
[2018-01-21] MEDS: MUPIROCIN 2% TOPICAL OINTMENT FOR DECOLONIZATION NS SCH ×2 (09:46→22:06)
[2018-01-21] MEDS: PANTOPRAZOLE 40 MG TABLET (FP) PO SCH (09:46)
[2018-01-21] MEDS: AMINO ACIDS/PROTEIN HYDROLYS 30 ML LIQUID.PKT PO SCH ×2 (09:46→17:38)
[2018-01-21] MEDS: NYSTATIN 100,000 UNIT/GM TOPICAL CREAM 15 GM TUBE TP SCH ×2 (09:47→22:05)
[2018-01-21] MEDS: BUDESONIDE/FORMETEROL FUMARATE 160/4.5 mcg INHALER IH SCH ×2 (09:48→22:07)
--- NOTE | 2018-01-21 09:55 | PN ---
Progress Note, Physician Chief Complaint: day #1 s/p I and D wound abscess - Current Medication List Current Medications: Active Medications Acetaminophen (Tylenol -) 1,000 mg PO Q6H PRN PRN Reason: PAIN LEVEL 1 - 3 Albuterol/Ipratropium (Duoneb -) 1 amp NEB RTID [facility] Last Admin: 01/21/18 07:30 Dose: 1 amp Amino Acids (Prosource No Carb Liquid Pkt) 30 ml PO BID@0800,1730 [facility] Last Admin: 01/21/18 09:46 Dose: 30 ml Benzocaine/Menthol (Cepacol Lozenge -) 1 each MM PRN PRN PRN Reason: SORE THROAT Budesonide/Formoterol Fumarate (Symbicort 160/4.5mcg -) 2 puff IH BID [facility] Last Admin: 01/21/18 09:48 Dose: 2 puff Chlorhexidine Gluconate (Hibiclens For Decolonization -) 1 applic TP HS [facility] Last Admin: 01/20/18 22:22 Dose: 1 applic Docusate Sodium (Colace -) 100 mg PO Q12H PRN PRN Reason: CONSTIPATION Lactated Ringer's (Lactated Ringers Solution) 1,000 ml in 1,000 mls @ 75 mls/ hr IV ASDIR [facility] Last Admin: 01/20/18 12:00 Dose: 75 mls/hr Sodium Chloride (Normal Saline -) 1,000 mls @ 75 mls/hr IV ASDIR [facility] Last Admin: 01/20/18 14:29 Dose: Not Given Vancomycin HCl (Vancomycin 1 Gm Premix -) 1 gm in 200 mls @ 250 mls/2 hr IVPB BID@0000,1200 [facility]; Protocol Last Admin: 01/21/18 00:35 Dose: 250 mls/2 hr Morphine Sulfate (Morphine Sulfate) 4 mg IVPUSH Q3H PRN PRN Reason: PAIN LEVEL 7 - 10 Mupirocin (Bactroban Ointment (For Decolonization) -) 1 applic NS BID [facility] Stop: 01/25/18 21:59 Last Admin: 01/21/18 09:46 Dose: 1 applic Nystatin (Mycostatin Cream -) 1 applic TP BID [facility] Last Admin: 01/21/18 09:47 Dose: 1 applic Ondansetron HCl (Zofran Injection) 4 mg IVPUSH Q6H PRN PRN Reason: NAUSEA AND/OR VOMITING Oxycodone HCl (Roxicodone -) 10 mg PO Q4H PRN PRN Reason: PAIN LEVEL 4 - 6 Pantoprazole Sodium (Protonix -) 40 mg PO DAILY [facility] Last Admin: 01/21/18 09:46 Dose: 40 mg Polyethylene Glycol (Miralax (For Daily Use) -) 17 gm PO DAILY [facility] Last Admin: 01/21/18 09:49 Dose: 17 grams Promethazine HCl (Phenergan Injection -) 12.5 mg IVPB Q6H PRN PRN Reason: NAUSEA-FOR RESCUE AFTER 15 MIN Senna (Senna -) 1 tab PO [facility] Last Admin: 01/20/18 22:22 Dose: 1 tab Trazodone HCl (Desyrel -) 150 mg PO [facility] Last Admin: 01/20/18 22:21 Dose: 150 mg - Objective Vital Signs: Vital Signs Temperature 98.9 F 01/21/18 06:00 Pulse Rate 98 H 01/21/18 08:00 Respiratory Rate 21 H 01/21/18 08:00 Blood Pressure 134/63 01/21/18 08:00 O2 Sat by Pulse Oximetry (%) 95 01/20/18 20:00 Labs: CBC, BMP 01/21/18 05:30 01/21/18 05:30 Assessment/Plan Doing well s/p GA for IandD/wound washout. Minimal pain, no anesthetic issues/ complications
[2018-01-21] MEDS ORDERED: POLYETHYLENE GLYCOL 3350 119 GM BTL PO SCH (10:00)
--- NOTE | 2018-01-21 13:23 | PN ---
Progress Note (short form) - Note Progress Note: states he currently has no pain and that his sensation in his legs have improved. denies Cp, SOB, fever, chills, N/V/c/D Current Medications Generic Name Dose Route Start Last Admin Trade Name Freq PRN Reason Stop Dose Admin Acetaminophen 1,000 mg 01/20/18 14:10 Tylenol - PO Q6H PRN PAIN LEVEL 1 - 3 Albuterol/Ipratropium 1 amp 01/20/18 20:00 01/21/18 07:30 Duoneb - NEB 1 amp RTID [facility] Administration Amino Acids 30 ml 01/20/18 17:30 01/21/18 09:46 Prosource No Carb Liquid Pkt PO 30 ml BID@0800,1730 [facility] Administration Benzocaine/Menthol 1 each 01/20/18 14:10 Cepacol Lozenge - MM PRN PRN SORE THROAT Budesonide/Formoterol Fumarate 2 puff 01/20/18 22:00 01/21/18 09:48 Symbicort 160/4.5mcg - IH 2 puff BID [facility] Administration Chlorhexidine Gluconate 1 applic 01/20/18 22:00 01/20/18 22:22 Hibiclens For Decolonization - TP 1 applic HS [facility] Administration Docusate Sodium 100 mg 01/20/18 14:10 Colace - PO Q12H PRN CONSTIPATION Lactated Ringer's 1,000 ml in 1,000 mls @ 75 mls/hr 01/20/18 11:00 01/20/18 12:00 Lactated Ringers Solution IV 75 mls/hr ASDIR [facility] Administration Sodium Chloride 1,000 mls @ 75 mls/hr 01/20/18 14:10 01/20/18 14:29 Normal Saline - IV Not Given ASDIR [facility] Vancomycin HCl 1 gm in 200 mls @ 250 mls/2 hr 01/21/18 00:00 01/21/18 12:42 Vancomycin 1 Gm Premix - IVPB 250 mls/2 hr BID@0000,1200 [facility] Administration Protocol Morphine Sulfate 4 mg 01/20/18 14:10 Morphine Sulfate IVPUSH Q3H PRN PAIN LEVEL 7 - 10 Mupirocin 1 applic 01/20/18 22:00 01/21/18 09:46 Bactroban Ointment (For Decolonization) - NS 01/25/18 21:59 1 applic BID [facility] Administration Nystatin 1 applic 01/20/18 22:00 01/21/18 09:47 Mycostatin Cream - TP 1 applic BID [facility] Administration Ondansetron HCl 4 mg 01/20/18 14:10 Zofran Injection IVPUSH Q6H PRN NAUSEA AND/OR VOMITING Oxycodone HCl 10 mg 01/20/18 14:10 Roxicodone - PO Q4H PRN PAIN LEVEL 4 - 6 Pantoprazole Sodium 40 mg 01/21/18 10:00 01/21/18 09:46 Protonix - PO 40 mg DAILY [facility] Administration Polyethylene Glycol 17 gm 01/21/18 10:00 01/21/18 09:49 Miralax (For Daily Use) - PO 17 grams DAILY [facility] Administration Promethazine HCl 12.5 mg 01/20/18 14:10 Phenergan Injection - IVPB Q6H PRN NAUSEA-FOR RESCUE AFTER 15 MIN Senna 1 tab 01/20/18 22:00 01/20/18 22:22 Senna - PO 1 tab HS [facility] Administration Trazodone HCl 150 mg 01/20/18 22:00 01/20/18 22:21 Desyrel - PO 150 mg HS [facility] Administration Last Vital Signs Temp Pulse Resp BP Pulse Ox 98.8 F 91 H 18 128/51 L 96 01/21/18 10:00 01/21/18 12:00 01/21/18 12:00 01/21/18 12:00 01/21/18 10:00 General NAD CV S1 S2 + Lungs CTA B/L anteriorly Extremiteis no pedal edema CBCD WBC 7.2 K/mm3 (4.0-10.0) 01/21/18 05:30 RBC 2.92 M/mm3 (4.00-5.60) L 01/21/18 05:30 Hgb 8.3 GM/dL (11.7-16.9) L 01/21/18 05:30 Hct 24.9 % (35.4-49) L 01/21/18 05:30 MCV 85.2 fl (80-96) 01/21/18 05:30 MCHC 33.2 g/dl (32.0-35.9) 01/21/18 05:30 RDW 14.2 % (11.9-15.9) 01/21/18 05:30 Plt Count 356 K/MM3 (134-434) 01/21/18 05:30 MPV 7.7 fl (7.5-11.1) 01/21/18 05:30 CMP Sodium 139 mmol/L (136-145) 01/21/18 05:30 Potassium 3.9 mmol/L (3.5-5.1) 01/21/18 05:30 Chloride 106 mmol/L (98-107) 01/21/18 05:30 Carbon Dioxide 26 mmol/L (21-32) 01/21/18 05:30 Anion Gap 7 MMOL/L (8-16) L 01/21/18 05:30 BUN 19 mg/dL (7-18) H 01/21/18 05:30 Creatinine 0.7 mg/dL (0.55-1.3) 01/21/18 05:30 Creat Clearance w eGFR > 60 (>60) 01/21/18 05:30 Calcium 8.9 mg/dL (8.5-10.1) 01/21/18 05:30 Total Bilirubin 0.3 mg/dL (0.2-1) 01/21/18 05:30 AST 18 U/L (15-37) 01/21/18 05:30 ALT 40 U/L (13-61) 01/21/18 05:30 Alkaline Phosphatase 153 U/L (45-117) H 01/21/18 05:30 Total Protein 4.6 g/dl (6.4-8.2) L 01/21/18 05:30 Albumin 1.6 g/dl (3.4-5.0) L 01/21/18 05:30 Microbiology 01/20/18 15:30 Gram Stain - Final Back 01/20/18 09:50 Gram Stain - Final Wound-Other Wound Culture - Preliminary 01/17/18 19:35 Gram Stain - Final Abscess Wound Culture - Preliminary Staphylococcus Species 01/17/18 19:34 Gram Stain - Final Abscess Wound Culture - Preliminary Staphylococcus Species 01/17/18 19:38 Gram Stain - Final Tissue-Other Tissue Culture - Preliminary Staphylococcus Species Anaerobic Culture - Final ASSESSMENT AND PLAN: 82 year old man a history of COPD on home O2, chronic urinary retention, lumbar compression fractures with spinal stenosis who was admitted for lumbar spine surgery and found to have MRSA infected hardware with bacteremia 1. Sepsis secondary to E. coli UTI, pneumonia, surgical wound infection with MRSA bacteremia- s/p incision, drainage, washout of deep thoracic and lumbar spine 01/17 and washout of an infected thoracic/lumber spinal incision S/P posterior fusion with wound vac placement 01/20. cont Vanco/Zosyn. repeat BCx are negative. recent wound Cx with +organism. f/u repeat wound CX. possible additional washouts depending on what Cx from today shows. anticipated for Tuesday 01/23. further recommendations per surgery and ID. cont pain control. 2. Lumbar spinal stenosis, lumbar compression fractures, lumbar kyphosis- s/p T12-L4 laminectomies, T9-pelvis posterior instrumentation, T9-S1 posterolateral arthrodesis 01/03 3. Acute exacerbation of COPD- resolved. off steroids. cont inhlaers. nebs prn. supplemental oxygen as needed. 4. Chronic hypoxic respiratory failure-saturating wel on home O2. Oxygen to maintain saturation >90% 5. Anemia- Likely acute blood loss and sepsis on chronic anemia. Transfused 3 units PRBCs this admission. normal transfusion thresholds. no indication for transfusion 6. Chronic urinary retention- Patient does self-catheterization at home 7. Constipation- last BM 3 days ago. will need to monitor as on opiates. cont stool regimen. consider suppository if no BM in next 24H 8. DVT ppx- SCD. hold pharmacologic anticoag with surgery 9. stable for transfer to the floors 10. Spoke with Daughter present at bedside. all questions answered. The care of this patient involved high complexity decision making to prevent further life threatening deterioration of the patient's condition and/or to evaluate & treat vital organ system(s) failure or risk of failure. 34 minutes Visit type - Emergency Visit Emergency Visit: Yes ED Registration Date: 01/03/18 Care time: The patient presented to the Emergency Department on the above date and was hospitalized for further evaluation of their emergent condition. - New Patient This patient is new to me today: No - Critical Care Critical Care patient: No - Discharge Referral Referred to [facility] No
--- NOTE | 2018-01-21 15:41 | PN ---
Progress Note (short form) - Note Progress Note: s/p washout #2 yesterday now with Vac dressing onhis back alert reading the newspaper using incentive spirometry Vital Signs Period Temp Pulse Resp BP Sys/Hyman Pulse Ox Last 24 Hr 98.4 F-98.9 F 67-98 12-21 101-137/42-63 95-96 cor-rrr lungs decreased bs at bses abd soft,nt ext no edema +vac +holder CBC, BMP 01/21/18 05:30 01/21/18 05:30 Microbiology 01/20/18 15:30 Back Gram Stain - Final 01/20/18 09:50 Wound-Other Gram Stain - Final 01/20/18 09:50 Wound-Other Wound Culture - Preliminary 01/17/18 19:35 Abscess Gram Stain - Final 01/17/18 19:35 Abscess Wound Culture - Preliminary Staphylococcus Species 01/17/18 19:34 Abscess Gram Stain - Final 01/17/18 19:34 Abscess Wound Culture - Preliminary Staphylococcus Species 01/17/18 19:38 Tissue-Other Gram Stain - Final 01/17/18 19:38 Tissue-Other Tissue Culture - Preliminary Staphylococcus Species 01/17/18 19:38 Tissue-Other Anaerobic Culture - Final 01/15/18 09:00 Blood - Peripheral Venous Blood Culture - Final NO GROWTH AFTER 5 DAYS INCUBATION 01/15/18 06:30 Blood - Peripheral Venous Blood Culture - Final NO GROWTH AFTER 5 DAYS INCUBATION 01/12/18 23:40 Blood - Peripheral Venous Blood Culture - Final Mr S Aureus 01/12/18 23:40 Blood - Peripheral Venous Blood Culture - Final Mr S Aureus 01/10/18 19:00 Blood - Peripheral Venous Blood Culture - Final Mr S Aureus 01/10/18 18:00 Blood - Peripheral Venous Blood Culture - Final Mr S Aureus 01/10/18 15:00 Urine - Urine - Catheterized Urine Culture - Final Escherichia Coli a/p MRSA bacteremia ecoli UTI surgical wound infection infected hardware- s/p washout 01/17 s/p laminectomy T12 to L4 -01/03 f/u operative cultures repeat blood cultures are negative continue vancomycin repeat vancomycin trough in am will require chcf abx and lifelong suppressive antibiotics to follow-d/w daughter at length-she is aware follow labs Problem List - Problems (1) Fever Code(s): R50.9 - FEVER, UNSPECIFIED (2) Status post laminectomy Code(s): Z98.890 - OTHER SPECIFIED POSTPROCEDURAL STATES
[2018-01-21] MEDS: SODIUM CHLORIDE 1,000 ML IV SCH (17:36)
[2018-01-21] MEDS: LACTATED RINGERS SOLUTION 1,000 ML/1,000 ML INFUS.BAG IV SCH (17:39)
[2018-01-21] MEDS ORDERED: QUEtiapine FUMARATE 25 MG TABLET (FP) PO SCH (22:00)
[2018-01-21] MEDS: DOCUSATE SODIUM 100 MG CAPSULE (FP) PO SCH (22:00)
[2018-01-21] MEDS: CHLORHEXIDINE GLUCONATE 4% CLEANSER FOR DECOLONIZATION TP SCH (22:04)
[2018-01-21] MEDS: SENNOSIDES 8.6MG TABLET (FP) PO SCH (22:05)
[2018-01-21] MEDS: POLYETHYLENE GLYCOL 3350 119 GM BTL PO SCH (22:05)
[2018-01-21] MEDS: traZODone HCL 50 MG TABLET (FP) PO SCH (22:06)
[2018-01-21] MEDS ORDERED: PT OWN MED DRAWER 7, Y5N ONE ×2 (22:10→23:50)
[2018-01-22] MEDS: HALOPERIDOL LACTATE 5 MG/ML IM PRN (02:21)
[2018-01-22] MEDS ORDERED: MORPHINE SULFATE 2 MG/ML VIAL IVPUSH ONE (03:25)
--- NOTE | 2018-01-22 07:34 | PN ---
Physical Exam: SUBJECTIVE: Patient seen and examined by me at bedside. No overnight events noted except for some delirium, possibly sundowning . Patient offers no complaints and was smiling and laughing at bedside. Patient still has not had a bowel movement. Otherwise, patient denies any fever, chills, nausea, vomiting , abdominal pain, chest pain, palpitations, shortness of breath, headaches. OBJECTIVE: Vital Signs Period Temp Pulse Resp BP Sys/Hyman Pulse Ox Last 24 Hr 98.2 F-98.8 F 83-98 18-24 120-160/51-90 96-97 GENERAL: The patient is awake, alert, HEAD: Normal with no signs of trauma. EYES: extraocular movements intact LUNGS: Breath sounds equal, clear to auscultation bilaterally HEART: Regular rate and rhythm, S1, S2 without murmur, rub or gallop. ABDOMEN: Soft, nontender, nondistended, normoactive bowel sounds : (+) Holder EXTREMITIES: 2+ pulses, warm, well-perfused, no edema. dressing over lower back with (+) wound vac with serous drainage PSYCH: Normal mood, normal affect. SKIN: Warm, dry, normal turgor, no rashes or lesions noted Active Medications Generic Name Dose Route Start Last Admin Trade Name Freq PRN Reason Stop Dose Admin Acetaminophen 1,000 mg 01/20/18 14:10 Tylenol - PO Q6H PRN PAIN LEVEL 1 - 3 Albuterol/Ipratropium 1 amp 01/20/18 20:00 01/21/18 21:05 Duoneb - NEB Not Given RTID SABINA Amino Acids 30 ml 01/20/18 17:30 01/21/18 17:38 Prosource No Carb Liquid Pkt PO 30 ml BID@0800,1730 SABINA Administration Benzocaine/Menthol 1 each 01/20/18 14:10 Cepacol Lozenge - MM PRN PRN SORE THROAT Budesonide/Formoterol Fumarate 2 puff 01/20/18 22:00 01/21/18 22:07 Symbicort 160/4.5mcg - IH 2 puff BID SABINA Administration Chlorhexidine Gluconate 1 applic 01/20/18 22:00 01/21/18 22:04 Hibiclens For Decolonization - TP 1 applic HS SABINA Administration Docusate Sodium 300 mg 01/21/18 22:00 01/21/18 22:00 Colace - PO 300 mg HS SABINA Administration Haloperidol 5 mg 01/21/18 23:45 01/22/18 02:21 Haldol Injection (Fast Acting) - IM 5 mg Q4H PRN Administration AGITATION Lactated Ringer's 1,000 ml in 1,000 mls @ 75 mls/hr 01/20/18 11:00 01/21/18 17:39 Lactated Ringers Solution IV 75 mls/hr ASDIR SABINA Administration Sodium Chloride 1,000 mls @ 75 mls/hr 01/20/18 14:10 01/21/18 17:36 Normal Saline - IV Not Given ASDIR SABINA Vancomycin HCl 1 gm in 200 mls @ 250 mls/2 hr 01/21/18 00:00 01/21/18 23:53 Vancomycin 1 Gm Premix - IVPB 250 mls/2 hr BID@0000,1200 SABINA Administration Protocol Morphine Sulfate 4 mg 01/20/18 14:10 Morphine Sulfate IVPUSH Q3H PRN PAIN LEVEL 7 - 10 Mupirocin 1 applic 01/20/18 22:00 01/21/18 22:06 Bactroban Ointment (For Decolonization) - NS 01/25/18 21:59 1 applic BID SABINA Administration Nystatin 1 applic 01/20/18 22:00 01/21/18 22:05 Mycostatin Cream - TP 1 applic BID SABINA Administration Ondansetron HCl 4 mg 01/20/18 14:10 Zofran Injection IVPUSH Q6H PRN NAUSEA AND/OR VOMITING Oxycodone HCl 10 mg 01/20/18 14:10 Roxicodone - PO Q4H PRN PAIN LEVEL 4 - 6 Pantoprazole Sodium 40 mg 01/21/18 10:00 01/21/18 09:46 Protonix - PO 40 mg DAILY SABINA Administration Polyethylene Glycol 17 gm 01/21/18 22:00 01/21/18 22:05 Miralax (For Daily Use) - PO 17 gm BID SABINA Administration Promethazine HCl 12.5 mg 01/20/18 14:10 Phenergan Injection - IVPB Q6H PRN NAUSEA-FOR RESCUE AFTER 15 MIN Senna 2 tab 01/21/18 14:42 01/21/18 22:05 Senna - PO 2 tab HS SABINA Administration Trazodone HCl 150 mg 01/20/18 22:00 01/21/18 22:06 Desyrel - PO 150 mg HS SABINA Administration ASSESSMENT/PLAN: Patient is an 82 year old male who presented for scheduled lumbar spine surgery and was found to have MRSA infected hardware with Bacterermia, UTI, and Pneumonia. Sepsis Secondary to UTI, PNA, and Surgical Wound Infection with MRSA -Patient s/p ncision, drainage, washout of deep thoracic and lumbar spine 01/17 and washout of an infected thoracic/lumber spinal incision S/P posterior fusion with wound vac placement 01/20 -Repeat blood cx negative. Repeat wound cultures pending -Continue Vancomycin 1gm BID day #12. Repeat vanc trough today. Will require life long abx. -Continue pain control with Roxicodone and Morphine Lumbar Spinal Stenosis with Lumbar compression fx and kyphosis -S/P 12-L4 laminectomies, T9-pelvis posterior instrumentation, T9-S1 posterolateral arthrodesis 01/03 -S/P posterior fusion with wound vac placement 01/20 -Continue pain management with roxicodone and morphine Acute exacerbation of COPD- resolved -Continue Symbicort and Duonebs -02 PRN -Chest PT BID Chronic hypoxic respiratory failure-resolved -02 PRN -Maintain saturation >90% -Chest PT BID Normocytic Anemia -Likely from acute blood loss and sepsis -Was given 3 PRBC's on admission -Improving and no indication for transfusion at this time Chronic urinary retention -Patient does self-catheterization at home. Continue to maintain holder catheter Opiate Induced Constipation -last BM 4 days ago. -Continue bowel regimen with colace, senna, and miralax -Will order suppository enema History of AAA s/p stenting -No issues at this time Prophylaxis -SCD's for DVT due to surgery -PPI for GI F/E/N -LR @75mls/hr -NPO after midnight Disposition -Full code -For procedure tomorrow, another washout. Stable for transfer to floors Case Discussed with Attending, Dr. Melchor. Elida Snyder [id number] Visit type - Emergency Visit Emergency Visit: Yes ED Registration Date: 01/03/18 Care time: The patient presented to the Emergency Department on the above date and was hospitalized for further evaluation of their emergent condition. - New Patient This patient is new to me today: Yes Date on this admission: 01/22/18 - Critical Care Critical Care patient: No
[2018-01-22] MEDS: ALBUTEROL SO4 2.5/IPRATROPIUM 0.5 INH SOL 3 ML VIAL.NEB. NEB SCH ×3 (07:40→20:20)
--- NOTE | 2018-01-22 07:52 | PN ---
Progress Note (short form) - Note Progress Note: Pulm/CCM F/u SUBJECTIVE: Patient seen and examined in the ICU. -delerious overnight, otherwise stable, awaiting bed on floor OBJECTIVE: Vital Signs Temp 98.4 F 01/22/18 06:00 Pulse 91 H 01/22/18 06:00 Resp 18 01/22/18 06:00 BP 148/68 01/22/18 06:00 Pulse Ox 97 01/21/18 22:00 Intake & Output 01/21/18 01/21/18 01/22/18 11:59 23:59 11:59 Intake Total 1200 2160 875 Output Total 2011 967 5384 Balance 200 1260 -625 Weight 88.632 kg 86.353 kg Intake: IV 900 1300 525 LACTATED RINGERS SOLUTION 900 1300 525 1,000 ml In 1,000 ml @ 75 mls/hr IV ASDIR [facility] Rx #:[id number] IVPB 250 350 250 Oral 50 510 100 Output: Drainage 1000 Posterior Back 1000 Urine 1000 900 500 Reyes 1000 900 500 Other: Voiding Method Indwelling Catheter Indwelling Catheter Bowel Movement No No Weight Measurement Method [facility] Built in [facility] Current Medications Acetaminophen (Tylenol -) 1,000 mg PO Q6H PRN PRN Reason: PAIN LEVEL 1 - 3 Albuterol/Ipratropium (Duoneb -) 1 amp NEB RTID [facility] Last Admin: 01/21/18 21:05 Dose: Not Given Amino Acids (Prosource No Carb Liquid Pkt) 30 ml PO BID@0800,1730 [facility] Last Admin: 01/21/18 17:38 Dose: 30 ml Benzocaine/Menthol (Cepacol Lozenge -) 1 each MM PRN PRN PRN Reason: SORE THROAT Budesonide/Formoterol Fumarate (Symbicort 160/4.5mcg -) 2 puff IH BID [facility] Last Admin: 01/21/18 22:07 Dose: 2 puff Chlorhexidine Gluconate (Hibiclens For Decolonization -) 1 applic TP [facility] Last Admin: 01/21/18 22:04 Dose: 1 applic Docusate Sodium (Colace -) 300 mg PO [facility] Last Admin: 01/21/18 22:00 Dose: 300 mg Haloperidol (Haldol Injection (Fast Acting) -) 5 mg IM Q4H PRN PRN Reason: AGITATION Last Admin: 01/22/18 02:21 Dose: 5 mg Lactated Ringer's (Lactated Ringers Solution) 1,000 ml in 1,000 mls @ 75 mls/ hr IV ASDIR [facility] Last Admin: 01/21/18 17:39 Dose: 75 mls/hr Sodium Chloride (Normal Saline -) 1,000 mls @ 75 mls/hr IV ASDIR [facility] Last Admin: 01/21/18 17:36 Dose: Not Given Vancomycin HCl (Vancomycin 1 Gm Premix -) 1 gm in 200 mls @ 250 mls/2 hr IVPB BID@0000,1200 SABINA; Protocol Last Admin: 01/21/18 23:53 Dose: 250 mls/2 hr Morphine Sulfate (Morphine Sulfate) 4 mg IVPUSH Q3H PRN PRN Reason: PAIN LEVEL 7 - 10 Mupirocin (Bactroban Ointment (For Decolonization) -) 1 applic NS BID [facility] Stop: 01/25/18 21:59 Last Admin: 01/21/18 22:06 Dose: 1 applic Nystatin (Mycostatin Cream -) 1 applic TP BID [facility] Last Admin: 01/21/18 22:05 Dose: 1 applic Ondansetron HCl (Zofran Injection) 4 mg IVPUSH Q6H PRN PRN Reason: NAUSEA AND/OR VOMITING Oxycodone HCl (Roxicodone -) 10 mg PO Q4H PRN PRN Reason: PAIN LEVEL 4 - 6 Pantoprazole Sodium (Protonix -) 40 mg PO DAILY [facility] Last Admin: 01/21/18 09:46 Dose: 40 mg Polyethylene Glycol (Miralax (For Daily Use) -) 17 gm PO BID [facility] Last Admin: 01/21/18 22:05 Dose: 17 gm Promethazine HCl (Phenergan Injection -) 12.5 mg IVPB Q6H PRN PRN Reason: NAUSEA-FOR RESCUE AFTER 15 MIN Senna (Senna -) 2 tab PO HS [facility] Last Admin: 01/21/18 22:05 Dose: 2 tab Trazodone HCl (Desyrel -) 150 mg PO HS [facility] Last Admin: 01/21/18 22:06 Dose: 150 mg Gen: NAD at rest, dressing intact posterior neck, minimal pain Heart: RRR Lung: few scattered rhonchi Abd: soft, nontender Ext: no edema Neuro: grossly intact Microbiology 01/20/18 15:30 Back Gram Stain - Final 01/20/18 09:50 Wound-Other Gram Stain - Final 01/20/18 09:50 Wound-Other Wound Culture - Preliminary 01/17/18 19:35 Abscess Gram Stain - Final 01/17/18 19:35 Abscess Wound Culture - Preliminary Staphylococcus Species 01/17/18 19:34 Abscess Gram Stain - Final 01/17/18 19:34 Abscess Wound Culture - Preliminary Staphylococcus Species 01/17/18 19:38 Tissue-Other Gram Stain - Final 01/17/18 19:38 Tissue-Other Tissue Culture - Preliminary Staphylococcus Species 01/17/18 19:38 Tissue-Other Anaerobic Culture - Final 01/15/18 09:00 Blood - Peripheral Venous Blood Culture - Final NO GROWTH AFTER 5 DAYS INCUBATION 01/15/18 06:30 Blood - Peripheral Venous Blood Culture - Final NO GROWTH AFTER 5 DAYS INCUBATION 01/12/18 23:40 Blood - Peripheral Venous Blood Culture - Final S Aureus 01/12/18 23:40 Blood - Peripheral Venous Blood Culture - Final Mr S Aureus 01/10/18 19:00 Blood - Peripheral Venous Blood Culture - Final Mr S Aureus 01/10/18 18:00 Blood - Peripheral Venous Blood Culture - Final Mr S Aureus 01/10/18 15:00 Urine - Urine - Catheterized Urine Culture - Final Escherichia Coli CBC, BMP 01/21/18 05:30 01/21/18 05:30 ASSESSMENT AND PLAN: Lumbar Compression Fractures s/p T12-L4 Laminectomies/T9-pelvis instrumentation/T9-S1 posterior lateral arthrodesis Acute COPD Exacerbation improved Chronic Hypoxic Respiratory Failure Pneumonia Back Wound Infection MRSA Bacteremia Anemia - ABX per ID, 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
[2018-01-22] MEDS: AMINO ACIDS/PROTEIN HYDROLYS 30 ML LIQUID.PKT PO SCH ×2 (09:09→17:43)
--- NOTE | 2018-01-22 09:09 | PN ---
Progress Note (short form) - Note Progress Note: s/p washout #2 now with Vac dressing on his back alert but confused Vital Signs Period Temp Pulse Resp BP Sys/Hyman Pulse Ox Last 24 Hr 98.4 F-98.9 F 67-98 12-21 101-137/42-63 95-96 cor-rrr lungs decreased bs at bses abd soft,nt ext no edema +vac +holder CBC, BMP 01/21/18 05:30 01/21/18 05:30 Microbiology 01/20/18 15:30 Back Gram Stain - Final 01/20/18 09:50 Wound-Other Gram Stain - Final 01/20/18 09:50 Wound-Other Wound Culture - Preliminary 01/17/18 19:35 Abscess Gram Stain - Final 01/17/18 19:35 Abscess Wound Culture - Preliminary Staphylococcus Species 01/17/18 19:34 Abscess Gram Stain - Final 01/17/18 19:34 Abscess Wound Culture - Preliminary Staphylococcus Species 01/17/18 19:38 Tissue-Other Gram Stain - Final 01/17/18 19:38 Tissue-Other Tissue Culture - Preliminary Staphylococcus Species 01/17/18 19:38 Tissue-Other Anaerobic Culture - Final 01/15/18 09:00 Blood - Peripheral Venous Blood Culture - Final NO GROWTH AFTER 5 DAYS INCUBATION 01/15/18 06:30 Blood - Peripheral Venous Blood Culture - Final NO GROWTH AFTER 5 DAYS INCUBATION 01/12/18 23:40 Blood - Peripheral Venous Blood Culture - Final Mr S Aureus 01/12/18 23:40 Blood - Peripheral Venous Blood Culture - Final Mr S Aureus 01/10/18 19:00 Blood - Peripheral Venous Blood Culture - Final Mr S Aureus 01/10/18 18:00 Blood - Peripheral Venous Blood Culture - Final Mr S Aureus 01/10/18 15:00 Urine - Urine - Catheterized Urine Culture - Final Escherichia Coli a/p MRSA bacteremia ecoli UTI surgical wound infection infected hardware- s/p washout 01/17 s/p laminectomy T12 to L4 -01/03 f/u operative cultures-should be back today repeat blood cultures are negative continue vancomycin repeat vancomycin trough today will require [facility]cfp abx and lifelong suppressive antibiotics to follow-d/w daughter at length-she is aware follow labs repeat esr/crp Problem List - Problems (1) Fever Code(s): R50.9 - FEVER, UNSPECIFIED (2) Status post laminectomy Code(s): Z98.890 - OTHER SPECIFIED POSTPROCEDURAL STATES
[2018-01-22] MEDS ORDERED: PT OWN MED DRAWER 7, Y5N ONE ×2 (09:37→23:54)
[2018-01-22] MEDS: MUPIROCIN 2% TOPICAL OINTMENT FOR DECOLONIZATION NS SCH ×2 (10:27→22:35)
[2018-01-22] MEDS: BUDESONIDE/FORMETEROL FUMARATE 160/4.5 mcg INHALER IH SCH ×2 (10:28→22:36)
[2018-01-22] MEDS: PANTOPRAZOLE 40 MG TABLET (FP) PO SCH (10:28)
[2018-01-22] MEDS: NYSTATIN 100,000 UNIT/GM TOPICAL CREAM 15 GM TUBE TP SCH ×2 (10:28→22:36)
[2018-01-22] MEDS: POLYETHYLENE GLYCOL 3350 119 GM BTL PO SCH ×2 (10:28→22:36)
[2018-01-22] MEDS: LACTATED RINGERS SOLUTION 1,000 ML/1,000 ML INFUS.BAG IV SCH (10:29)
[2018-01-22 11:39] LABS: HEMATOCRIT 26.6 % (35.4-49); MCH 29.3 pg (25.7-33.7); MCHC 33.9 g/dl (32.0-35.9); MEAN CELL VOLUME 86.4 fl (80-96); MEAN PLT VOLUME 6.9 fl (7.5-11.1); PLATELET COUNT 385 K/MM3 (134-434); RBC 3.07 M/mm3 (4.00-5.60); RDW 14.2 % (11.9-15.9); WHITE BLOOD COUNT 7.4 K/mm3 (4.0-10.0)
[2018-01-22 12:12] LABS: ALBUMIN 1.7 g/dl (3.4-5.0); ALK PHOS 132 U/L (45-117); ANION GAP 4 MMOL/L (8-16); BILIRUBIN,TOTAL 0.3 mg/dL (0.2-1); BLOOD UREA NITROGEN 22 mg/dL (7-18); CALCIUM 8.4 mg/dL (8.5-10.1); CHLORIDE 105 mmol/L (98-107); CO2 28 mmol/L (21-32); CREATININE 0.8 mg/dL (0.55-1.3); GLUCOSE,RANDOM 86 mg/dL (74-106); POTASSIUM 3.8 mmol/L (3.5-5.1); SGOT/AST 32 U/L (15-37); SGPT/ALT 45 U/L (13-61); SODIUM 137 mmol/L (136-145); TOT PROT 4.9 g/dl (6.4-8.2)
[2018-01-22] MEDS ORDERED: BISACODYL 10 MG SUPP.RECT PR ONE (12:51)
--- NOTE | 2018-01-22 12:52 | PN ---
Teaching Attending Note Name of Resident: Elida Snyder ATTENDING PHYSICIAN STATEMENT I saw and evaluated the patient. I reviewed the resident's note and discussed the case with the resident. I agree with the resident's findings and plan as documented. SUBJECTIVE:asymptomatic. denies CP, SOB, fever, chills, N/V/C/D OBJECTIVE: Last Vital Signs Temp Pulse Resp BP Pulse Ox 98.0 F 90 18 154/77 96 01/22/18 10:00 01/22/18 10:00 01/22/18 10:00 01/22/18 10:00 01/22/18 10:45 General NAD CV S1 S2 + Lungs CTA B/L no wheezing/rales/rhonchi 82 year old man a history of COPD on home O2, chronic urinary retention, lumbar compression fractures with spinal stenosis who was admitted for lumbar spine surgery and found to have MRSA infected hardware with bacteremia 1. Sepsis secondary to E. coli UTI, pneumonia, surgical wound infection with MRSA bacteremia- s/p incision, drainage, washout of deep thoracic and lumbar spine 01/17 and washout of an infected thoracic/lumber spinal incision S/P posterior fusion with wound vac placement 01/20. cont Vanco/Zosyn. repeat BCx are negative. recent wound Cx showing no growth to date. possible wound closure tomorrow vs additional washouts per ortho team. 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 further recommendations per surgery and ID. cont pain control. 2. Lumbar spinal stenosis, lumbar compression fractures, lumbar kyphosis- s/p T12-L4 laminectomies, T9-pelvis posterior instrumentation, T9-S1 posterolateral arthrodesis 01/03 3. Acute exacerbation of COPD- resolved. off steroids. cont inhlaers. nebs prn. supplemental oxygen as needed. 4. Chronic hypoxic respiratory failure-saturating well on home O2. Oxygen to maintain saturation >90% 5. Anemia- Likely acute blood loss and sepsis on chronic anemia. Transfused 3 units PRBCs this admission. normal transfusion thresholds. no indication for transfusion 6. Chronic urinary retention- Patient does self-catheterization at home. holder in place here 7. Constipation- last BM 3 days ago. will need to monitor as on opiates. cont stool regimen. will give suppository 8. DVT ppx- SCD. hold pharmacologic anticoag with surgery 9. stable for transfer to the floors The care of this patient involved high complexity decision making to prevent further life threatening deterioration of the patient's condition and/or to evaluate & treat vital organ system(s) failure or risk of failure. 34 minutes
[2018-01-22] MEDS: VANCOMYCIN 1 GM PREMIX - 1 GM/200 ML BAG IVPB SCH ×2 (12:54→23:58)
[2018-01-22] MEDS: traZODone HCL 50 MG TABLET (FP) PO SCH (22:35)
[2018-01-22] MEDS: DOCUSATE SODIUM 100 MG CAPSULE (FP) PO SCH (22:35)
[2018-01-22] MEDS: CHLORHEXIDINE GLUCONATE 4% CLEANSER FOR DECOLONIZATION TP SCH (22:35)
[2018-01-22] MEDS: SENNOSIDES 8.6MG TABLET (FP) PO SCH (22:36)
[2018-01-23 05:49] LABS: HEMATOCRIT 24.7 % (35.4-49); HEMOGLOBIN 8.2 GM/dL (11.7-16.9); MCH 28.3 pg (25.7-33.7); MEAN CELL VOLUME 85.7 fl (80-96); MEAN PLT VOLUME 7.1 fl (7.5-11.1); PLATELET COUNT 346 K/MM3 (134-434); RBC 2.88 M/mm3 (4.00-5.60); RDW 14.2 % (11.9-15.9); WHITE BLOOD COUNT 6.4 K/mm3 (4.0-10.0)
[2018-01-23 06:31] LABS: ALBUMIN 1.7 g/dl (3.4-5.0); ALK PHOS 124 U/L (45-117); ANION GAP 5 MMOL/L (8-16); BILIRUBIN,TOTAL 0.3 mg/dL (0.2-1); BLOOD UREA NITROGEN 20 mg/dL (7-18); CALCIUM 8.4 mg/dL (8.5-10.1); CHLORIDE 102 mmol/L (98-107); CO2 29 mmol/L (21-32); CREATININE 0.8 mg/dL (0.55-1.3); GLUCOSE,RANDOM 84 mg/dL (74-106); MAGNESIUM 1.8 mg/dL (1.8-2.4); PHOSPHOROUS 2.6 mg/dL (2.5-4.9); POTASSIUM 3.6 mmol/L (3.5-5.1); SGOT/AST 23 U/L (15-37); SGPT/ALT 37 U/L (13-61); SODIUM 136 mmol/L (136-145); TOT PROT 4.7 g/dl (6.4-8.2)
[2018-01-23] MEDS: ALBUTEROL SO4 2.5/IPRATROPIUM 0.5 INH SOL 3 ML VIAL.NEB. NEB SCH ×3 (07:50→20:13)
[2018-01-23] MEDS: AMINO ACIDS/PROTEIN HYDROLYS 30 ML LIQUID.PKT PO SCH ×2 (09:44→17:43)
[2018-01-23] MEDS: NYSTATIN 100,000 UNIT/GM TOPICAL CREAM 15 GM TUBE TP SCH ×2 (09:45→22:15)
[2018-01-23] MEDS: PANTOPRAZOLE 40 MG TABLET (FP) PO SCH (09:46)
[2018-01-23] MEDS: POLYETHYLENE GLYCOL 3350 119 GM BTL PO SCH ×2 (09:46→22:17)
[2018-01-23] MEDS: MUPIROCIN 2% TOPICAL OINTMENT FOR DECOLONIZATION NS SCH (09:46)
[2018-01-23] MEDS: BUDESONIDE/FORMETEROL FUMARATE 160/4.5 mcg INHALER IH SCH ×2 (09:47→22:14)
--- NOTE | 2018-01-23 09:49 | PN ---
Progress Note (short form) - Note Progress Note: s/p washout #2 now with Vac dressing on his back alert but confused Vital Signs Period Temp Pulse Resp BP Sys/Hyman Pulse Ox Last 24 Hr 97.9 F-98.9 F 82-100 14-22 130-164/56-87 91-96 cor-rrr lungs clear abd soft,nt ext no edema +holder +vac CBC, BMP 01/23/18 05:30 01/23/18 05:30 Microbiology 01/17/18 19:35 Abscess Gram Stain - Final 01/17/18 19:35 Abscess Wound Culture - Final Mr S Aureus 01/17/18 19:38 Tissue-Other Gram Stain - Final 01/17/18 19:38 Tissue-Other Tissue Culture - Final Staphylococcus Species 01/17/18 19:38 Tissue-Other Anaerobic Culture - Final 01/17/18 19:34 Abscess Gram Stain - Final 01/17/18 19:34 Abscess Wound Culture - Final Mr S Aureus 01/20/18 09:50 Wound-Other Gram Stain - Final 01/20/18 09:50 Wound-Other Wound Culture - Preliminary Staphylococcus Species 01/20/18 15:30 Back Gram Stain - Final 01/20/18 15:30 Back Wound Culture - Preliminary NO GROWTH OBTAINED AFTER 24 HOURS INCUBATION, REINCUBATED. 01/15/18 09:00 Blood - Peripheral Venous Blood Culture - Final NO GROWTH AFTER 5 DAYS INCUBATION 01/15/18 06:30 Blood - Peripheral Venous Blood Culture - Final NO GROWTH AFTER 5 DAYS INCUBATION 01/12/18 23:40 Blood - Peripheral Venous Blood Culture - Final Mr S Aureus 01/12/18 23:40 Blood - Peripheral Venous Blood Culture - Final Mr S Aureus 01/10/18 19:00 Blood - Peripheral Venous Blood Culture - Final Mr S Aureus 01/10/18 18:00 Blood - Peripheral Venous Blood Culture - Final Mr S Aureus 01/10/18 15:00 Urine - Urine - Catheterized Urine Culture - Final Escherichia Coli a/p MRSA bacteremia ecoli UTI surgical wound infection infected hardware- s/p washout 01/17-MRSA s/p laminectomy T12 to L4 -01/03 continue vancomycin, add rifampin will require senior care abx minimum 6 to 8 weeks and lifelong suppressive antibiotics with bactrim to follow-d/w daughter at length-she is aware follow labs repeat esr/crp in am Problem List - Problems (1) Fever Code(s): R50.9 - FEVER, UNSPECIFIED (2) Status post laminectomy Code(s): Z98.890 - OTHER SPECIFIED POSTPROCEDURAL STATES
--- NOTE | 2018-01-23 10:28 | PN ---
Physical Exam: SUBJECTIVE: Patient seen and examined. He is sleepy but easily aroused. He denies pain. OBJECTIVE: Vital Signs Period Temp Pulse Resp BP Sys/Hyman Pulse Ox Last 24 Hr 97.9 F-98.9 F 81-100 14-22 114-164/49-87 91-96 GENERAL: The patient is awake, alert, and in no acute distress. LUNGS: Few rhonchi bilaterally. HEART: Regular rate and rhythm, S1, S2 without murmur, rub or gallop. ABDOMEN: Soft, nontender, nondistended, normoactive bowel sounds, no guarding, no rebound, no hepatosplenomegaly, no masses. EXTREMITIES: 2+ pulses, warm, well-perfused, no edema. Laboratory Results - last 24 hr 01/22/18 01/22/18 01/22/18 11:22 11:22 11:22 WBC 7.4 RBC 3.07 L Hgb 9.0 L Hct 26.6 L MCV 86.4 MCH 29.3 MCHC 33.9 RDW 14.2 Plt Count 385 MPV 6.9 L D Sodium 137 Potassium 3.8 Chloride 105 Carbon Dioxide 28 Anion Gap 4 L BUN 22 H Creatinine 0.8 Creat Clearance w eGFR > 60 Random Glucose 86 Calcium 8.4 L Phosphorus Magnesium Total Bilirubin 0.3 AST 32 ALT 45 Alkaline Phosphatase 132 H Total Protein 4.9 L Albumin 1.7 L Vancomycin Pre-Dose 21.0 01/23/18 01/23/18 05:30 05:30 WBC 6.4 RBC 2.88 L Hgb 8.2 L Hct 24.7 L MCV 85.7 MCH 28.3 MCHC 33.0 RDW 14.2 Plt Count 346 MPV 7.1 L Sodium 136 Potassium 3.6 Chloride 102 Carbon Dioxide 29 Anion Gap 5 L BUN 20 H Creatinine 0.8 Creat Clearance w eGFR > 60 Random Glucose 84 Calcium 8.4 L Phosphorus 2.6 Magnesium 1.8 Total Bilirubin 0.3 AST 23 ALT 37 Alkaline Phosphatase 124 H Total Protein 4.7 L Albumin 1.7 L Vancomycin Pre-Dose Active Medications Generic Name Dose Route Start Last Admin Trade Name Freq PRN Reason Stop Dose Admin Acetaminophen 1,000 mg 01/20/18 14:10 Tylenol - PO Q6H PRN PAIN LEVEL 1 - 3 Albuterol/Ipratropium 1 amp 01/20/18 20:00 01/23/18 07:50 Duoneb - NEB 1 amp RTID [facility] Administration Amino Acids 30 ml 01/20/18 17:30 01/23/18 09:44 Prosource No Carb Liquid Pkt PO Not Given BID@0800,1730 [facility] Benzocaine/Menthol 1 each 01/20/18 14:10 Cepacol Lozenge - MM PRN PRN SORE THROAT Budesonide/Formoterol Fumarate 2 puff 01/20/18 22:00 01/23/18 09:47 Symbicort 160/4.5mcg - IH 2 puff BID [facility] Administration Chlorhexidine Gluconate 1 applic 01/20/18 22:00 01/22/18 22:35 Hibiclens For Decolonization - TP 1 applic HS [facility] Administration Docusate Sodium 300 mg 01/21/18 22:00 01/22/18 22:35 Colace - PO Not Given HS [facility] Haloperidol 5 mg 01/21/18 23:45 01/22/18 02:21 Haldol Injection (Fast Acting) - IM 5 mg Q4H PRN Administration AGITATION Vancomycin HCl 1 gm in 200 mls @ 250 mls/2 hr 01/21/18 00:00 01/22/18 23:58 Vancomycin 1 Gm Premix - IVPB 250 mls/2 hr BID@0000,1200 [facility] Administration Protocol Mupirocin 1 applic 01/20/18 22:00 01/23/18 09:46 Bactroban Ointment (For Decolonization) - NS 01/25/18 21:59 Not Given BID [facility] Nystatin 1 applic 01/20/18 22:00 01/23/18 09:45 Mycostatin Cream - TP 1 applic BID [facility] Administration Ondansetron HCl 4 mg 01/20/18 14:10 Zofran Injection IVPUSH Q6H PRN NAUSEA AND/OR VOMITING Oxycodone HCl 10 mg 01/20/18 14:10 Roxicodone - PO Q4H PRN PAIN LEVEL 4 - 6 Pantoprazole Sodium 40 mg 01/21/18 10:00 01/23/18 09:46 Protonix - PO Not Given DAILY [facility] Polyethylene Glycol 17 gm 01/21/18 22:00 01/23/18 09:46 Miralax (For Daily Use) - PO Not Given BID [facility] Promethazine HCl 12.5 mg 01/20/18 14:10 Phenergan Injection - IVPB Q6H PRN NAUSEA-FOR RESCUE AFTER 15 MIN Rifampin 300 mg 01/23/18 10:00 Rifadin - PO BID [facility] Senna 2 tab 01/21/18 14:42 01/22/18 22:36 Senna - PO Not Given HS [facility] Trazodone HCl 150 mg 01/20/18 22:00 01/22/18 22:35 Desyrel - PO Not Given HS [facility] ASSESSMENT/PLAN: This is an 82 year old man a history of COPD, chronic urinary retention, lumbar compression fractures with spinal stenosis who was admitted for lumbar spine surgery. 1. Sepsis secondary to E. coli UTI, pneumonia, surgical wound infection with MRSA bacteremia - s/p incision, drainage, washout of deep thoracic and lumbar spine 01/17 - s/p washout and application of wound VAC 01/20 - Plan for return to OR today - Continue Vancomycin - Rifampin added - Blood cultures 01/10 growing MRSA - Blood cultures 01/12 growing MRSA - Blood cultures 01/15 negative after 5 days - Wound cultures growing MRSA - Echo shows normal LV, normal LV systolic function, LVEF 60-65%, E/A reversal, normal RV systolic function, trace UT - Plan for antibiotics x 6-8 weeks followed by lifelong suppressive therapy with Bactrim 2. Lumbar spinal stenosis, lumbar compression fractures, lumbar kyphosis - s/p T12-L4 laminectomies, T9-pelvis posterior instrumentation, T9-S1 posterolateral arthrodesis 01/03 3. Acute exacerbation of COPD - Improved - Continue Prednisone, Symbicort, DuoNeb, oxygen - Patient is steroid-dependent at home 4. Chronic hypoxic respiratory failure - Oxygen to maintain saturation >90% 5. Anemia - Likely acute blood loss and sepsis on chronic anemia - Transfused 3 units PRBCs this admission - Continue to monitor hgb and keep > 8.0 6. Chronic urinary retention - Patient does self-catheterization at home 7. Constipation - Continue Colace, Senna, Miralax
[2018-01-23] MEDS ORDERED: PT OWN MED DRAWER 7, Y5N ONE ×3 (11:02→21:49)
[2018-01-23] MEDS ORDERED: DAPTOMYCIN 500 MG in SODIUM CHLORIDE 50 ML IVPB SCH (11:45)
--- NOTE | 2018-01-23 11:51 | PN ---
Teaching Attending Note Name of Resident: Shay Kincaid ATTENDING PHYSICIAN STATEMENT I saw and evaluated the patient. I reviewed the resident's note and discussed the case with the resident. I agree with the resident's findings and plan as documented. SUBJECTIVE: Patient seen and examined in the ICU. Lethargic but arousbale. Apparently required Haldol overnight for agitation. Washout over the weekend and anticipated repeat washout today with VAC change. OBJECTIVE: Intake & Output 01/20/18 01/21/18 01/22/18 01/23/18 23:59 23:59 23:59 23:59 Intake Total 2685 3360 1875 200 Output Total 1320 1900 3900 500 Balance 1365 1460 -2025 -300 Weight 196 lb 5 oz 195 lb 6.4 oz 190 lb 6 oz 185 lb 8 oz Last Vital Signs Temp Pulse Resp BP Pulse Ox 99.4 F 84 17 151/57 L 95 01/23/18 10:00 01/23/18 10:00 01/23/18 10:00 01/23/18 10:00 01/23/18 09:00 Active Medications Acetaminophen (Tylenol -) 1,000 mg PO Q6H PRN PRN Reason: PAIN LEVEL 1 - 3 Albuterol/Ipratropium (Duoneb -) 1 amp NEB RTID [facility] Last Admin: 01/23/18 07:50 Dose: 1 amp Amino Acids (Prosource No Carb Liquid Pkt) 30 ml PO BID@0800,1730 [facility] Last Admin: 01/23/18 09:44 Dose: Not Given Benzocaine/Menthol (Cepacol Lozenge -) 1 each MM PRN PRN PRN Reason: SORE THROAT Budesonide/Formoterol Fumarate (Symbicort 160/4.5mcg -) 2 puff IH BID [facility] Last Admin: 01/23/18 09:47 Dose: 2 puff Chlorhexidine Gluconate (Hibiclens For Decolonization -) 1 applic TP HS [facility] Last Admin: 01/22/18 22:35 Dose: 1 applic Docusate Sodium (Colace -) 300 mg PO HS [facility] Last Admin: 01/22/18 22:35 Dose: Not Given Haloperidol (Haldol Injection (Fast Acting) -) 5 mg IM Q4H PRN PRN Reason: AGITATION Last Admin: 01/22/18 02:21 Dose: 5 mg Daptomycin 650 mg/ Sodium (Chloride) 50 mls @ 50 mls/hr IVPB DAILY [facility]; Protocol Mupirocin (Bactroban Ointment (For Decolonization) -) 1 applic NS BID [facility] Stop: 01/25/18 21:59 Last Admin: 01/23/18 09:46 Dose: Not Given Nystatin (Mycostatin Cream -) 1 applic TP BID [facility] Last Admin: 01/23/18 09:45 Dose: 1 applic Ondansetron HCl (Zofran Injection) 4 mg IVPUSH Q6H PRN PRN Reason: NAUSEA AND/OR VOMITING Oxycodone HCl (Roxicodone -) 10 mg PO Q4H PRN PRN Reason: PAIN LEVEL 4 - 6 Pantoprazole Sodium (Protonix -) 40 mg PO DAILY [facility] Last Admin: 01/23/18 09:46 Dose: Not Given Polyethylene Glycol (Miralax (For Daily Use) -) 17 gm PO BID [facility] Last Admin: 01/23/18 09:46 Dose: Not Given Promethazine HCl (Phenergan Injection -) 12.5 mg IVPB Q6H PRN PRN Reason: NAUSEA-FOR RESCUE AFTER 15 MIN Rifampin (Rifadin -) 300 mg PO BID [facility] Senna (Senna -) 2 tab PO HS [facility] Last Admin: 01/22/18 22:36 Dose: Not Given Trazodone HCl (Desyrel -) 150 mg PO HS [facility] Last Admin: 01/22/18 22:35 Dose: Not Given Gen: : Lethargic/poorly arousable, dressing intact posterior neck. Heart: RRR Lung: less rhonchi Abd: soft, nontender Ext: no edema Laboratory Results - last 24 hr 01/22/18 01/22/18 01/23/18 11:22 11:22 05:30 WBC 6.4 RBC 2.88 L Hgb 8.2 L Hct 24.7 L MCV 85.7 MCH 28.3 MCHC 33.0 RDW 14.2 Plt Count 346 MPV 7.1 L Sodium 137 Potassium 3.8 Chloride 105 Carbon Dioxide 28 Anion Gap 4 L BUN 22 H Creatinine 0.8 Creat Clearance w eGFR > 60 Random Glucose 86 Calcium 8.4 L Phosphorus Magnesium Total Bilirubin 0.3 AST 32 ALT 45 Alkaline Phosphatase 132 H Total Protein 4.9 L Albumin 1.7 L Vancomycin Pre-Dose 21.0 01/23/18 05:30 WBC RBC Hgb Hct MCV MCH MCHC RDW Plt Count MPV Sodium 136 Potassium 3.6 Chloride 102 Carbon Dioxide 29 Anion Gap 5 L BUN 20 H Creatinine 0.8 Creat Clearance w eGFR > 60 Random Glucose 84 Calcium 8.4 L Phosphorus 2.6 Magnesium 1.8 Total Bilirubin 0.3 AST 23 ALT 37 Alkaline Phosphatase 124 H Total Protein 4.7 L Albumin 1.7 L Vancomycin Pre-Dose ASSESSMENT AND PLAN: Lumbar Compression Fractures s/p T12-L4 Laminectomies/T9-pelvis instrumentation/T9-S1 posterior lateral arthrodesis Acute COPD Exacerbation improved Chronic Hypoxic Respiratory Failure Pneumonia Back Wound Infection MRSA Bacteremia Anemia - ABX per ID, note will need long chain beamer suppressive ABX as well - Plan for OR today for washout and VAC placement - inhaled bronchodilators standing and PRN - pain control - Incentive spirometry - O2 to keep SpO2 >90% - PO as tolerated - bowel regimen - rehab/PT - DVT prophylaxis - Aspiration precautions - Post operative ICU monitoring Dr Gross Critical care time spent in reviewing chart, evaluating patient and formulating plan - 36 minutes.
--- NOTE | 2018-01-23 13:13 | PN ---
Physical Exam: SUBJECTIVE: Patient seen and examined at bedside. Very lethargic d/t administration of haloperidol overnight for agitation. OBJECTIVE: Vital Signs Period Temp Pulse Resp BP Sys/Hyman Pulse Ox Last 24 Hr 97.9 F-99.4 F 81-100 14-22 114-164/49-97 91-95 GENERAL: Arousable to vigorous sternal rub HEAD: NC/AT EYES: Anicteric sclera LUNGS: Breath sounds equal, clear to auscultation bilaterally HEART: Regular rate and rhythm, S1, S2 without murmur, rub or gallop. ABDOMEN: Soft, nontender, nondistended, normoactive bowel sounds : (+) Holder EXTREMITIES: 2+ pulses, warm, well-perfused, no edema. dressing over lower back with (+) wound vac with serous drainage NEUROLOGIC: could not assess SKIN: Warm, dry, normal turgor, no rashes or lesions noted Laboratory Results - last 24 hr 01/23/18 01/23/18 05:30 05:30 WBC 6.4 RBC 2.88 L Hgb 8.2 L Hct 24.7 L MCV 85.7 MCH 28.3 MCHC 33.0 RDW 14.2 Plt Count 346 MPV 7.1 L Sodium 136 Potassium 3.6 Chloride 102 Carbon Dioxide 29 Anion Gap 5 L BUN 20 H Creatinine 0.8 Creat Clearance w eGFR > 60 Random Glucose 84 Calcium 8.4 L Phosphorus 2.6 Magnesium 1.8 Total Bilirubin 0.3 AST 23 ALT 37 Alkaline Phosphatase 124 H Total Protein 4.7 L Albumin 1.7 L Active Medications Generic Name Dose Route Start Last Admin Trade Name Freq PRN Reason Stop Dose Admin Acetaminophen 1,000 mg 01/20/18 14:10 Tylenol - PO Q6H PRN PAIN LEVEL 1 - 3 Albuterol/Ipratropium 1 amp 01/20/18 20:00 01/23/18 07:50 Duoneb - NEB 1 amp RTID [facility] Administration Amino Acids 30 ml 01/20/18 17:30 01/23/18 09:44 Prosource No Carb Liquid Pkt PO Not Given BID@0800,1730 [facility] Benzocaine/Menthol 1 each 01/20/18 14:10 Cepacol Lozenge - MM PRN PRN SORE THROAT Budesonide/Formoterol Fumarate 2 puff 01/20/18 22:00 09/24/18 09:47 Symbicort 160/4.5mcg - IH 2 puff BID [facility] Administration Chlorhexidine Gluconate 1 applic 01/20/18 22:00 01/22/18 22:35 Hibiclens For Decolonization - TP 1 applic HS [facility] Administration Docusate Sodium 300 mg 01/21/18 22:00 01/22/18 22:35 Colace - PO Not Given HS [facility] Haloperidol 5 mg 01/21/18 23:45 01/22/18 02:21 Haldol Injection (Fast Acting) - IM 5 mg Q4H PRN Administration AGITATION Daptomycin 650 mg/ Sodium 50 mls @ 50 mls/hr 01/23/18 11:45 Chloride IVPB DAILY [facility] Protocol Mupirocin 1 applic 01/20/18 22:00 01/23/18 09:46 Bactroban Ointment (For Decolonization) - NS 01/25/18 21:59 Not Given BID [facility] Nystatin 1 applic 01/20/18 22:00 01/23/18 09:45 Mycostatin Cream - TP 1 applic BID [facility] Administration Ondansetron HCl 4 mg 01/20/18 14:10 Zofran Injection IVPUSH Q6H PRN NAUSEA AND/OR VOMITING Oxycodone HCl 10 mg 01/20/18 14:10 Roxicodone - PO Q4H PRN PAIN LEVEL 4 - 6 Pantoprazole Sodium 40 mg 01/21/18 10:00 01/23/18 09:46 Protonix - PO Not Given DAILY [facility] Polyethylene Glycol 17 gm 01/21/18 22:00 01/23/18 09:46 Miralax (For Daily Use) - PO Not Given BID [facility] Promethazine HCl 12.5 mg 01/20/18 14:10 Phenergan Injection - IVPB Q6H PRN NAUSEA-FOR RESCUE AFTER 15 MIN Rifampin 300 mg 01/23/18 10:00 Rifadin - PO BID [facility] Senna 2 tab 01/21/18 14:42 01/22/18 22:36 Senna - PO Not Given HS [facility] Trazodone HCl 150 mg 01/20/18 22:00 01/22/18 22:35 Desyrel - PO Not Given HS [facility] ASSESSMENT/PLAN: 82 y/o M w/ PMHx COPD, chronic urinary retention, aortic aneurysm admitted to ICU s/p lumbar Sx complicated by MRSA infection of hardware, bacteremia, UTI PNA #Sepsis Secondary to UTI, PNA, and Surgical Wound Infection with MRSA -Patient s/p incision, drainage, washout of deep thoracic and lumbar spine 01/17 and washout of an infected thoracic/lumber spinal incision S/P posterior fusion with wound vac placement 01/20 -Repeat blood Cx negative -repeat wound Cx: MRSA -Continue Vancomycin 1gm BID day #13. Will require life long abx. -Continue pain control with Roxicodone and Morphine #Lumbar Spinal Stenosis with Lumbar compression fx and kyphosis -s/p T12-L4 laminectomies, T9-pelvis posterior instrumentation, T9-S1 posterolateral arthrodesis 01/03 -s/p posterior fusion with wound vac placement 01/20 -OR today for wound closure #Acute exacerbation of COPD #resolved -Continue Symbicort and Duonebs -02 PRN -Chest PT BID #Chronic hypoxic respiratory failure-resolved - PRN -Maintain saturation >90% -Chest PT BID #Normocytic Anemia -Likely from acute blood loss and sepsis -Was given 3 PRBC's on admission -H/H stable -will monitor #Chronic urinary retention -Patient does self-catheterization at home -Continue to maintain holder catheter #Opiate Induced Constipation -Continue bowel regimen with colace, senna, and miralax #History of AAA s/p stenting -No issues at this time #PPx -SCD's for DVT due to surgery -PPI for GI #F/E/N -no fluids -monitor lytes -NPO pending Sx, regular diet afterwards #Disposition -Full code -post-op monitoring in ICU Visit type - Emergency Visit Emergency Visit: No - New Patient This patient is new to me today: Yes Date on this admission: 01/23/18 - Critical Care Critical Care patient: Yes Total Critical Care Time (in minutes): 40 Critical Care Statement: The care of this patient involved high complexity decision making to prevent further life threatening deterioration of the patient 's condition and/or to evaluate & treat vital organ system(s) failure or risk of failure.
[2018-01-23] MEDS: RIFAMPIN 300 MG CAPSULE PO SCH ×2 (14:43→22:13)
[2018-01-23] MEDS: DAPTOMYCIN 650 MG in SODIUM CHLORIDE 50 ML IVPB SCH (14:43)
[2018-01-23] MEDS ORDERED: ONDANSETRON 4 MG/2 ML VIAL IVPUSH PRN (16:12)
[2018-01-23] MEDS ORDERED: PROMETHAZINE HCL 25 MG/1 ML VIAL IVPUSH PRN (16:12)
[2018-01-23] MEDS ORDERED: LACTATED RINGERS SOLUTION 1,000 ML IV SCH (16:30)
[2018-01-23] MEDS ORDERED: SUCCINYLCHOLINE CHLORIDE 200 MG/10 ML VIAL ONE (16:39)
[2018-01-23] MEDS ORDERED: ROCURONIUM BROMIDE 50 MG/5 ML VIAL ONE (16:39)
[2018-01-23] MEDS ORDERED: PROPOFOL 20 ML ONE (16:39)
[2018-01-23] MEDS ORDERED: LIDOCAINE HCL/PF 2% SDV 5ML VIAL ONE (16:41)
[2018-01-23] MEDS ORDERED: DEXAMETHASONE SOD PHOSPHATE 4 MG/1 ML VIAL ONE (17:12)
[2018-01-23] MEDS ORDERED: PHENYLEPHRINE HCL 10 MG/1 ML SINGLE DOSE VIAL ONE (17:25)
[2018-01-23] MEDS: ACETAMINOPHEN 500 MG TABLET (FP) PO PRN (22:12)
[2018-01-23] MEDS: SENNOSIDES 8.6MG TABLET (FP) PO SCH (22:12)
[2018-01-23] MEDS: traZODone HCL 50 MG TABLET (FP) PO SCH (22:13)
[2018-01-23] MEDS: DOCUSATE SODIUM 100 MG CAPSULE (FP) PO SCH (22:13)
[2018-01-23] MEDS: CHLORHEXIDINE GLUCONATE 4% CLEANSER FOR DECOLONIZATION TP SCH (22:15)
[2018-01-24] MEDS: MUPIROCIN 2% TOPICAL OINTMENT FOR DECOLONIZATION NS SCH ×2 (03:31→10:54)
[2018-01-24 06:51] LABS: HEMATOCRIT 26.7 % (35.4-49); HEMOGLOBIN 8.7 GM/dL (11.7-16.9); MCH 28.2 pg (25.7-33.7); MCHC 32.7 g/dl (32.0-35.9); MEAN PLT VOLUME 7.2 fl (7.5-11.1); PLATELET COUNT 339 K/MM3 (134-434); RDW 14.2 % (11.9-15.9); WHITE BLOOD COUNT 7.4 K/mm3 (4.0-10.0)
[2018-01-24 07:16] LABS: ANION GAP 9 MMOL/L (8-16); BLOOD UREA NITROGEN 19 mg/dL (7-18); CALCIUM 8.8 mg/dL (8.5-10.1); CHLORIDE 104 mmol/L (98-107); CO2 30 mmol/L (21-32); CREATININE 0.8 mg/dL (0.55-1.3); GLUCOSE,RANDOM 96 mg/dL (74-106); MAGNESIUM 1.9 mg/dL (1.8-2.4); PHOSPHOROUS 4.4 mg/dL (2.5-4.9); POTASSIUM 4.3 mmol/L (3.5-5.1); SODIUM 142 mmol/L (136-145)
[2018-01-24] MEDS: ALBUTEROL SO4 2.5/IPRATROPIUM 0.5 INH SOL 3 ML VIAL.NEB. NEB SCH ×3 (08:30→20:50)
--- NOTE | 2018-01-24 08:36 | PN ---
Progress Note (short form) - Note Progress Note: Post op day#1.S/P Thoracolumbar wound debredment with lavage and complex closure under GA uneventful.P 88,BP 167/68 and Spo2 94% on RA.Patient stable and looks lot better then yesterday.No any anestgesia related problem.Patient DC from the anesthesia care.
--- NOTE | 2018-01-24 08:58 | PN ---
Physical Exam: SUBJECTIVE: Patient seen and examined at bedside. Alertness improved vs. yesterday, still mildly confused. C/o pain at surgical site. OBJECTIVE: Vital Signs Period Temp Pulse Resp BP Sys/Hyman Pulse Ox Last 24 Hr 98 F-99.4 F 74-98 11-22 110-165/53-97 92-98 GENERAL: A&Ox3, NAD HEAD: NC/AT EYES: PERRLA, EOMI ENT: moist mucous membranes NECK: Trachea midline, supple LUNGS: Breath sounds equal, clear to auscultation bilaterally, no wheezes, no crackles, no accessory muscle use. HEART: RRR no m/r/g ABDOMEN: +bs, soft, NT, ND EXTREMITIES: 2+ pulses, warm, well-perfused, no edema. 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 SKIN: Warm, dry, normal turgor, no rashes or lesions noted Laboratory Results - last 24 hr 01/24/18 01/24/18 01/24/18 05:30 05:30 05:30 WBC 7.4 RBC 3.10 L Hgb 8.7 L Hct 26.7 L MCV 86.0 MCH 28.2 MCHC 32.7 RDW 14.2 Plt Count 339 MPV 7.2 L Sodium 142 Potassium 4.3 Chloride 104 Carbon Dioxide 30 Anion Gap 9 BUN 19 H Creatinine 0.8 Creat Clearance w eGFR > 60 Random Glucose 96 Calcium 8.8 Phosphorus 4.4 Magnesium 1.9 Creatine Kinase 40 C-Reactive Protein 6.1 H Active Medications Generic Name Dose Route Start Last Admin Trade Name Freq PRN Reason Stop Dose Admin Acetaminophen 1,000 mg 01/20/18 14:10 01/23/18 22:12 Tylenol - PO 1,000 mg Q6H PRN Administration PAIN LEVEL 1 - 3 Albuterol/Ipratropium 1 amp 01/20/18 20:00 01/23/18 20:13 Duoneb - NEB 1 amp RTID [facility] Administration Amino Acids 30 ml 01/20/18 17:30 01/23/18 17:43 Prosource No Carb Liquid Pkt PO Not Given BID@0800,1730 [facility] Benzocaine/Menthol 1 each 01/20/18 14:10 Cepacol Lozenge - MM PRN PRN SORE THROAT Budesonide/Formoterol Fumarate 2 puff 01/20/18 22:00 01/23/18 22:14 Symbicort 160/4.5mcg - IH 2 puff BID [facility] Administration Chlorhexidine Gluconate 1 applic 01/20/18 22:00 01/23/18 22:15 Hibiclens For Decolonization - TP 1 applic HS [facility] Administration Docusate Sodium 300 mg 01/21/18 22:00 01/23/18 22:13 Colace - PO 300 mg HS [facility] Administration Haloperidol 5 mg 01/21/18 23:45 01/22/18 02:21 Haldol Injection (Fast Acting) - IM 5 mg Q4H PRN Administration AGITATION Daptomycin 650 mg/ Sodium 50 mls @ 100 mls/hr 01/23/18 13:45 01/23/18 14:43 Chloride IVPB 100 mls/hr DAILY [facility] Administration Protocol Lactated Ringer's 1,000 mls @ 125 mls/hr 01/23/18 16:30 01/23/18 20:00 Lactated Ringers Solution IV 125 mls/hr ASDIR [facility] Administration Mupirocin 1 applic 01/20/18 22:00 01/24/18 03:31 Bactroban Ointment (For Decolonization) - NS 01/25/18 21:59 Not Given BID [facility] Nystatin 1 applic 01/20/18 22:00 01/23/18 22:15 Mycostatin Cream - TP 1 applic BID [facility] Administration Ondansetron HCl 4 mg 01/20/18 14:10 Zofran Injection IVPUSH Q6H PRN NAUSEA AND/OR VOMITING Pantoprazole Sodium 40 mg 01/21/18 10:00 01/23/18 09:46 Protonix - PO Not Given DAILY [facility] Polyethylene Glycol 17 gm 01/21/18 22:00 01/23/18 22:17 Miralax (For Daily Use) - PO 17 gm BID [facility] Administration Rifampin 300 mg 01/23/18 10:00 01/23/18 22:13 Rifadin - PO 300 mg BID [facility] Administration Senna 2 tab 01/21/18 14:42 01/23/18 22:12 Senna - PO 2 tab HS [facility] Administration Trazodone HCl 150 mg 01/20/18 22:00 01/23/18 22:13 Desyrel - PO 150 mg HS [facility] Administration ASSESSMENT/PLAN: 82 y/o M w/ PMHx COPD, chronic urinary retention, aortic aneurysm admitted to ICU s/p lumbar Sx complicated by MRSA infection of hardware, bacteremia, UTI PNA #Sepsis Secondary to UTI, PNA, and Surgical Wound Infection with MRSA -Patient s/p incision, drainage, washout of deep thoracic and lumbar spine 01/17 and washout of an infected thoracic/lumber spinal incision S/P posterior fusion with wound vac placement 01/20 -POD1 s/p thoracolumbar wound debridement with lavage and complex closure -Repeat blood Cx negative -repeat wound Cx: MRSA -Switched to Vancomycin/Rifampin w/ ID on board -Continue pain control with Roxicodone and Morphine #Lumbar Spinal Stenosis with Lumbar compression fx and kyphosis -s/p T12-L4 laminectomies, T9-pelvis posterior instrumentation, T9-S1 posterolateral arthrodesis 01/03 -s/p posterior fusion with wound vac placement 01/20 -POD1 s/p thoracolumbar wound debridement with lavage and complex closure #Acute exacerbation of COPD #resolved -Continue Symbicort and Duonebs -02 PRN -Chest PT BID #Chronic hypoxic respiratory failure-resolved -02 PRN -Maintain saturation >90% -Chest PT BID #Normocytic Anemia -Likely from acute blood loss and sepsis -Was given 3 PRBC's on admission -H/H stable -will monitor #Chronic urinary retention -Patient does self-catheterization at home -Continue to maintain holder catheter #Opiate Induced Constipation -Continue bowel regimen with colace, senna, and miralax #History of AAA s/p stenting -No issues at this time #PPx -DVT: SCDs -GI: Protonix, Senna/colace, Miralax #F/E/N -LR @ 125 -monitor lytes -regular diet #Disposition -Full code -transfer to med-surg Visit type - Emergency Visit Emergency Visit: No - New Patient This patient is new to me today: No - Critical Care Critical Care patient: Yes Total Critical Care Time (in minutes): 40 Critical Care Statement: The care of this patient involved high complexity decision making to prevent further life threatening deterioration of the patient 's condition and/or to evaluate & treat vital organ system(s) failure or risk of failure.
--- NOTE | 2018-01-24 09:35 | PN ---
Physical Exam: SUBJECTIVE: Patient seen and examined. He is eating breakfast and has no complaints. OBJECTIVE: Vital Signs Period Temp Pulse Resp BP Sys/Hyman Pulse Ox Last 24 Hr 98 F-99.4 F 74-98 11-22 110-167/53-97 92-98 GENERAL: The patient is awake, alert, and fully oriented, in no acute distress. LUNGS: Few rhonchi. HEART: Regular rate and rhythm, S1, S2 without murmur, rub or gallop. ABDOMEN: Soft, nontender, nondistended, normoactive bowel sounds, no guarding, no rebound, no hepatosplenomegaly, no masses. EXTREMITIES: 2+ pulses, warm, well-perfused, no edema. Laboratory Results - last 24 hr 01/24/18 01/24/18 01/24/18 05:30 05:30 05:30 WBC 7.4 RBC 3.10 L Hgb 8.7 L Hct 26.7 L MCV 86.0 MCH 28.2 MCHC 32.7 RDW 14.2 Plt Count 339 MPV 7.2 L Sodium 142 Potassium 4.3 Chloride 104 Carbon Dioxide 30 Anion Gap 9 BUN 19 H Creatinine 0.8 Creat Clearance w eGFR > 60 Random Glucose 96 Calcium 8.8 Phosphorus 4.4 Magnesium 1.9 Creatine Kinase 40 C-Reactive Protein 6.1 H Active Medications Generic Name Dose Route Start Last Admin Trade Name Freq PRN Reason Stop Dose Admin Acetaminophen 1,000 mg 01/20/18 14:10 01/23/18 22:12 Tylenol - PO 1,000 mg Q6H PRN Administration PAIN LEVEL 1 - 3 Albuterol/Ipratropium 1 amp 01/20/18 20:00 01/24/18 08:30 Duoneb - NEB 1 amp RTID SABINA Administration Amino Acids 30 ml 01/20/18 17:30 01/23/18 17:43 Prosource No Carb Liquid Pkt PO Not Given BID@0800,1730 SABINA Benzocaine/Menthol 1 each 01/20/18 14:10 Cepacol Lozenge - MM PRN PRN SORE THROAT Budesonide/Formoterol Fumarate 2 puff 01/20/18 22:00 01/23/18 22:14 Symbicort 160/4.5mcg - IH 2 puff BID SABINA Administration Chlorhexidine Gluconate 1 applic 01/20/18 22:00 01/23/18 22:15 Hibiclens For Decolonization - TP 1 applic HS SABINA Administration Docusate Sodium 300 mg 01/21/18 22:00 01/23/18 22:13 Colace - PO 300 mg HS SABINA Administration Haloperidol 5 mg 01/21/18 23:45 01/22/18 02:21 Haldol Injection (Fast Acting) - IM 5 mg Q4H PRN Administration AGITATION Daptomycin 650 mg/ Sodium 50 mls @ 100 mls/hr 01/23/18 13:45 01/23/18 14:43 Chloride IVPB 100 mls/hr DAILY SABINA Administration Protocol Lactated Ringer's 1,000 mls @ 125 mls/hr 01/23/18 16:30 01/23/18 20:00 Lactated Ringers Solution IV 125 mls/hr ASDIR SABINA Administration Mupirocin 1 applic 01/20/18 22:00 01/24/18 03:31 Bactroban Ointment (For Decolonization) - NS 01/25/18 21:59 Not Given BID SABINA Nystatin 1 applic 01/20/18 22:00 01/23/18 22:15 Mycostatin Cream - TP 1 applic BID SABINA Administration Ondansetron HCl 4 mg 01/20/18 14:10 Zofran Injection IVPUSH Q6H PRN NAUSEA AND/OR VOMITING Pantoprazole Sodium 40 mg 01/21/18 10:00 01/23/18 09:46 Protonix - PO Not Given DAILY SABINA Polyethylene Glycol 17 gm 01/21/18 22:00 01/23/18 22:17 Miralax (For Daily Use) - PO 17 gm BID SABINA Administration Rifampin 300 mg 01/23/18 10:00 01/23/18 22:13 Rifadin - PO 300 mg BID SABINA Administration Senna 2 tab 01/21/18 14:42 01/23/18 22:12 Senna - PO 2 tab HS SABINA Administration Trazodone HCl 150 mg 01/20/18 22:00 01/23/18 22:13 Desyrel - PO 150 mg HS SABINA Administration ASSESSMENT/PLAN: This is an 82 year old man a history of COPD, chronic urinary retention, lumbar compression fractures with spinal stenosis who was admitted for lumbar spine surgery. 1. Sepsis secondary to E. coli UTI, pneumonia, surgical wound infection with MRSA bacteremia - s/p incision, drainage, washout of deep thoracic and lumbar spine 01/17 - s/p washout and application of wound VAC 01/20 - s/p washout and closure of wound 01/23 - Vancomycin changed to Daptomycin - Rifampin added - Blood cultures 01/10 growing MRSA - Blood cultures 01/12 growing MRSA - Blood cultures 01/15 negative after 5 days - Wound cultures growing MRSA - Echo shows normal LV, normal LV systolic function, LVEF 60-65%, E/A reversal, normal RV systolic function, trace NE - Plan for antibiotics x 6-8 weeks followed by lifelong suppressive therapy with Bactrim 2. Lumbar spinal stenosis, lumbar compression fractures, lumbar kyphosis - s/p T12-L4 laminectomies, T9-pelvis posterior instrumentation, T9-S1 posterolateral arthrodesis 01/03 3. Acute exacerbation of COPD - Improved - Continue Symbicort, DuoNeb, oxygen - Prednisone was discontinued 01/17 - Patient was steroid-dependent at home 4. Chronic hypoxic respiratory failure - Oxygen to maintain saturation >90% 5. Anemia - Likely acute blood loss and sepsis on chronic anemia - Transfused 3 units PRBCs this admission - Continue to monitor hgb and keep > 8.0 6. Chronic urinary retention - Patient does self-catheterization at home - Has Reyes catheter 7. Constipation - Continue Colace, Senna, Miralax
[2018-01-24] MEDS ORDERED: PT OWN MED DRAWER 7, Y5N ONE ×3 (10:37→20:44)
[2018-01-24] MEDS: ACETAMINOPHEN 500 MG TABLET (FP) PO PRN ×3 (10:50→21:15)
[2018-01-24] MEDS: PANTOPRAZOLE 40 MG TABLET (FP) PO SCH (10:53)
[2018-01-24] MEDS: AMINO ACIDS/PROTEIN HYDROLYS 30 ML LIQUID.PKT PO SCH ×2 (10:53→19:23)
[2018-01-24] MEDS: NYSTATIN 100,000 UNIT/GM TOPICAL CREAM 15 GM TUBE TP SCH ×2 (10:54→21:10)
[2018-01-24] MEDS: RIFAMPIN 300 MG CAPSULE PO SCH ×2 (11:08→21:11)
[2018-01-24] MEDS: POLYETHYLENE GLYCOL 3350 119 GM BTL PO SCH ×2 (11:08→21:09)
[2018-01-24] MEDS: BUDESONIDE/FORMETEROL FUMARATE 160/4.5 mcg INHALER IH SCH ×2 (11:09→21:12)
[2018-01-24] MEDS: DAPTOMYCIN 650 MG in SODIUM CHLORIDE 50 ML IVPB SCH (11:43)
--- NOTE | 2018-01-24 11:59 | PN ---
Teaching Attending Note Name of Resident: Shay Kincaid ATTENDING PHYSICIAN STATEMENT I saw and evaluated the patient. I reviewed the resident's note and discussed the case with the resident. I agree with the resident's findings and plan as documented. SUBJECTIVE: Patient seen and examined in the ICU. More awake and alert today. Reports pain on movement. S/P washout and VAC placement yesterday. OBJECTIVE: Intake & Output 01/21/18 01/22/18 01/23/18 01/24/18 23:59 23:59 23:59 23:59 Intake Total 3360 8451 112 9323 Output Total 1900 3900 1450 2320 Balance 1460 -2025 -550 -820 Weight 195 lb 6.4 oz 190 lb 6 oz 185 lb 8 oz 180 lb 1.883 oz Last Vital Signs Temp Pulse Resp BP Pulse Ox 98.3 F 99 H 20 111/43 L 95 01/24/18 10:00 01/24/18 10:00 01/24/18 10:00 01/24/18 10:00 01/24/18 00:32 Active Medications Acetaminophen (Tylenol -) 1,000 mg PO Q6H PRN PRN Reason: PAIN LEVEL 1 - 3 Last Admin: 01/24/18 10:50 Dose: 1,000 mg Albuterol/Ipratropium (Duoneb -) 1 amp NEB RTID [facility] Last Admin: 01/24/18 08:30 Dose: 1 amp Amino Acids (Prosource No Carb Liquid Pkt) 30 ml PO BID@0800,1730 [facility] Last Admin: 01/24/18 10:53 Dose: 30 ml Benzocaine/Menthol (Cepacol Lozenge -) 1 each MM PRN PRN PRN Reason: SORE THROAT Budesonide/Formoterol Fumarate (Symbicort 160/4.5mcg -) 2 puff IH BID [facility] Last Admin: 01/24/18 11:09 Dose: 1 puff Chlorhexidine Gluconate (Hibiclens For Decolonization -) 1 applic TP [facility] Last Admin: 01/23/18 22:15 Dose: 1 applic Docusate Sodium (Colace -) 300 mg PO [facility] Last Admin: 01/23/18 22:13 Dose: 300 mg Haloperidol (Haldol Injection (Fast Acting) -) 5 mg IM Q4H PRN PRN Reason: AGITATION Last Admin: 01/22/18 02:21 Dose: 5 mg Daptomycin 650 mg/ Sodium (Chloride) 50 mls @ 100 mls/hr IVPB DAILY [facility]; Protocol Last Admin: 01/24/18 11:43 Dose: 100 mls/hr Lactated Ringer's (Lactated Ringers Solution) 1,000 mls @ 125 mls/hr IV ASDIR SABINA Last Admin: 01/23/18 20:00 Dose: 125 mls/hr Mupirocin (Bactroban Ointment (For Decolonization) -) 1 applic NS BID SABINA Stop: 01/25/18 21:59 Last Admin: 01/24/18 10:54 Dose: 1 applic Nystatin (Mycostatin Cream -) 1 applic TP BID [facility] Last Admin: 01/24/18 10:54 Dose: 1 applic Ondansetron HCl (Zofran Injection) 4 mg IVPUSH Q6H PRN PRN Reason: NAUSEA AND/OR VOMITING Pantoprazole Sodium (Protonix -) 40 mg PO DAILY [facility] Last Admin: 01/24/18 10:53 Dose: 40 mg Polyethylene Glycol (Miralax (For Daily Use) -) 17 gm PO BID [facility] Last Admin: 01/24/18 11:08 Dose: Not Given Rifampin (Rifadin -) 300 mg PO BID [facility] Last Admin: 01/24/18 11:08 Dose: 300 mg Senna (Senna -) 2 tab PO HS [facility] Last Admin: 01/23/18 22:12 Dose: 2 tab Trazodone HCl (Desyrel -) 150 mg PO [facility] Last Admin: 01/23/18 22:13 Dose: 150 mg Gen: : Awake and responsive, NAD, VAC intact. Heart: RRR Lung: less rhonchi Abd: soft, nontender Ext: no edema Laboratory Results - last 24 hr 01/24/18 01/24/18 01/24/18 05:30 05:30 05:30 WBC RBC Hgb Hct MCV MCH MCHC RDW Plt Count MPV ESR 53 H Sodium 142 Potassium 4.3 Chloride 104 Carbon Dioxide 30 Anion Gap 9 BUN 19 H Creatinine 0.8 Creat Clearance w eGFR > 60 Random Glucose 96 Calcium 8.8 Phosphorus 4.4 Magnesium 1.9 Creatine Kinase 40 C-Reactive Protein 6.1 H 01/24/18 05:30 WBC 7.4 RBC 3.10 L Hgb 8.7 L Hct 26.7 L MCV 86.0 MCH 28.2 MCHC 32.7 RDW 14.2 Plt Count 339 MPV 7.2 L ESR Sodium Potassium Chloride Carbon Dioxide Anion Gap BUN Creatinine Creat Clearance w eGFR Random Glucose Calcium Phosphorus Magnesium Creatine Kinase C-Reactive Protein ASSESSMENT AND PLAN: Lumbar Compression Fractures s/p T12-L4 Laminectomies/T9-pelvis instrumentation/T9-S1 posterior lateral arthrodesis Acute COPD Exacerbation improved Chronic Hypoxic Respiratory Failure Pneumonia Back Wound Infection MRSA Bacteremia Anemia - ABX per ID, note will need termite treater helper suppressive ABX as well - LOcal wound care per surgery - Inhaled bronchodilators standing and PRN - Pain control - Incentive spirometry - O2 to keep SpO2 >90% - PO as tolerated - Bowel regimen - PT - DVT prophylaxis - Aspiration precautions - Surgical floor monitoring Dr Gross
[2018-01-24] MEDS ORDERED: LACTATED RINGERS SOLUTION 1,000 ML IV SCH (19:36)
[2018-01-24] MEDS: traZODone HCL 50 MG TABLET (FP) PO SCH (21:08)
[2018-01-24] MEDS: CHLORHEXIDINE GLUCONATE 4% CLEANSER FOR DECOLONIZATION TP SCH (21:08)
[2018-01-24] MEDS: DOCUSATE SODIUM 100 MG CAPSULE (FP) PO SCH (21:09)
[2018-01-24] MEDS: SENNOSIDES 8.6MG TABLET (FP) PO SCH (21:11)
[2018-01-25] MEDS: MUPIROCIN 2% TOPICAL OINTMENT FOR DECOLONIZATION NS SCH ×2 (02:53→11:46)
[2018-01-25 06:40] LABS: HEMOGLOBIN 7.6 GM/dL (11.7-16.9); MCH 28.3 pg (25.7-33.7); MCHC 32.9 g/dl (32.0-35.9); MEAN CELL VOLUME 86.1 fl (80-96); MEAN PLT VOLUME 7.4 fl (7.5-11.1); PLATELET COUNT 315 K/MM3 (134-434); RBC 2.67 M/mm3 (4.00-5.60); RDW 14.4 % (11.9-15.9); WHITE BLOOD COUNT 8.2 K/mm3 (4.0-10.0)
[2018-01-25 07:00] LABS: ANION GAP 6 MMOL/L (8-16); BLOOD UREA NITROGEN 25 mg/dL (7-18); CHLORIDE 104 mmol/L (98-107); CO2 29 mmol/L (21-32); CREATININE 0.8 mg/dL (0.55-1.3); GLUCOSE,RANDOM 100 mg/dL (74-106); MAGNESIUM 1.8 mg/dL (1.8-2.4); PHOSPHOROUS 2.5 mg/dL (2.5-4.9); POTASSIUM 3.7 mmol/L (3.5-5.1); SODIUM 139 mmol/L (136-145)
[2018-01-25] MEDS: ALBUTEROL SO4 2.5/IPRATROPIUM 0.5 INH SOL 3 ML VIAL.NEB. NEB SCH ×2 (08:16→14:00)
[2018-01-25] MEDS ORDERED: PT OWN MED DRAWER 7, Y5N ONE ×2 (10:26→21:21)
[2018-01-25] MEDS: ACETAMINOPHEN 500 MG TABLET (FP) PO PRN ×2 (10:32→16:31)
[2018-01-25] MEDS: AMINO ACIDS/PROTEIN HYDROLYS 30 ML LIQUID.PKT PO SCH ×2 (10:32→16:32)
[2018-01-25] MEDS: RIFAMPIN 300 MG CAPSULE PO SCH ×2 (10:33→21:31)
[2018-01-25] MEDS: PANTOPRAZOLE 40 MG TABLET (FP) PO SCH (10:34)
--- NOTE | 2018-01-25 10:54 | PN ---
Progress Note (short form) - Note Progress Note: s/p washout #2 now with Vac dressing on his back alert Vital Signs Period Temp Pulse Resp BP Sys/Hyman Pulse Ox Last 24 Hr 98.4 F-98.6 F 86-95 17-20 109-181/43-71 cor-rrr lungs clear abd soft,nt ext no edema +holder vac CBC, BMP 01/25/18 05:30 01/25/18 05:30 Microbiology 01/20/18 15:30 Back Gram Stain - Final 01/20/18 15:30 Back Wound Culture - Preliminary Staphylococcus Species 01/23/18 07:10 Wound-Other Gram Stain - Final 01/20/18 09:50 Wound-Other Gram Stain - Final 01/20/18 09:50 Wound-Other Wound Culture - Final Mr S Aureus 01/17/18 19:35 Abscess Gram Stain - Final 01/17/18 19:35 Abscess Wound Culture - Final Mr S Aureus 01/17/18 19:38 Tissue-Other Gram Stain - Final 01/17/18 19:38 Tissue-Other Tissue Culture - Final Staphylococcus Species 01/17/18 19:38 Tissue-Other Anaerobic Culture - Final 01/17/18 19:34 Abscess Gram Stain - Final 01/17/18 19:34 Abscess Wound Culture - Final Mr S Aureus 01/15/18 09:00 Blood - Peripheral Venous Blood Culture - Final NO GROWTH AFTER 5 DAYS INCUBATION 01/15/18 06:30 Blood - Peripheral Venous Blood Culture - Final NO GROWTH AFTER 5 DAYS INCUBATION 01/12/18 23:40 Blood - Peripheral Venous Blood Culture - Final Mr S Aureus 01/12/18 23:40 Blood - Peripheral Venous Blood Culture - Final Mr S Aureus 01/10/18 19:00 Blood - Peripheral Venous Blood Culture - Final Mr S Aureus 01/10/18 18:00 Blood - Peripheral Venous Blood Culture - Final Mr S Aureus 01/10/18 15:00 Urine - Urine - Catheterized Urine Culture - Final Escherichia Coli Laboratory Tests 01/17/18 01/17/18 01/24/18 07:00 07:00 05:30 ESR 92 H C-Reactive Protein 11.2 H 6.1 H 01/24/18 05:30 ESR 53 H C-Reactive Protein a/p MRSA bacteremia-negative blood cultures 01/15 ecoli UTI surgical wound infection infected hardware- s/p washout [id number] cultures 01/23 s/p laminectomy T12 to L4 -01/03 continue vancomycin, add rifampin will require assisted abx minimum 6 to 8 weeks and lifelong suppressive antibiotics with bactrim or minocycline to follow-d/w daughter at length-she is aware follow labs esr/crp trending down, follow weekly d/w icu staff Problem List - Problems (1) Fever Code(s): R50.9 - FEVER, UNSPECIFIED (2) Status post laminectomy Code(s): Z98.890 - OTHER SPECIFIED POSTPROCEDURAL STATES
[2018-01-25] MEDS ORDERED: MAGNESIUM OXIDE 400 MG TABLET (FP) PO ONE (11:03)
--- NOTE | 2018-01-25 11:08 | PN ---
Physical Exam: SUBJECTIVE: Patient seen and examined at bedside in the ICU No complaints feels well spinal stimulator in place OBJECTIVE: Vital Signs Period Temp Pulse Resp BP Sys/Hyman Pulse Ox Last 24 Hr 98.4 F-98.6 F 86-95 17-20 109-181/43-71 GENERAL:Alert, awake, and orientated x3 HEAD: Normal with no signs of trauma. EYES: PERRL, extraocular movements intact ENT: Moist mucous membranes. NECK: Trachea midline, full range of motion, supple. LUNGS: minimal scattered rhonchi otherwise clear HEART: Regular rate and rhythm, S1, S2 ABDOMEN: Soft, nontender, nondistended, normoactive bowel sounds, no guarding. Ventral hernia : holder in place EXTREMITIES: well-perfused, no edema. NEUROLOGICAL: Cranial nerves II through XII grossly intact. Normal speech. sensation intact in all extremities. strength 5/5 in bilateral lower extremities. Strength 5/5 in upper extremities. PSYCH: Normal mood, normal affect. SKIN:Warm, Dry, dressing intact. draining serosangenous drainage Laboratory Results - last 24 hr 01/25/18 01/25/18 05:30 05:30 WBC 8.2 RBC 2.67 L Hgb 7.6 L Hct 23.0 L MCV 86.1 MCH 28.3 MCHC 32.9 RDW 14.4 Plt Count 315 MPV 7.4 L Sodium 139 Potassium 3.7 Chloride 104 Carbon Dioxide 29 Anion Gap 6 L BUN 25 H Creatinine 0.8 Creat Clearance w eGFR > 60 Random Glucose 100 Calcium 8.0 L Phosphorus 2.5 Magnesium 1.8 Active Medications Generic Name Dose Route Start Last Admin Trade Name Freq PRN Reason Stop Dose Admin Acetaminophen 1,000 mg 01/20/18 14:10 01/25/18 10:32 Tylenol - PO 1,000 mg Q6H PRN Administration PAIN LEVEL 1 - 3 Albuterol/Ipratropium 1 amp 01/20/18 20:00 01/25/18 08:16 Duoneb - NEB 1 amp RTID SABINA Administration Amino Acids 30 ml 01/20/18 17:30 01/25/18 10:32 Prosource No Carb Liquid Pkt PO 30 ml BID@0800,1730 SABINA Administration Benzocaine/Menthol 1 each 01/20/18 14:10 Cepacol Lozenge - MM PRN PRN SORE THROAT Budesonide/Formoterol Fumarate 2 puff 01/20/18 22:00 01/24/18 21:12 Symbicort 160/4.5mcg - IH 2 puff BID SABINA Administration Chlorhexidine Gluconate 1 applic 01/20/18 22:00 01/24/18 21:08 Hibiclens For Decolonization - TP 1 applic HS SABINA Administration Docusate Sodium 300 mg 01/21/18 22:00 01/24/18 21:09 Colace - PO Not Given HS SABINA Haloperidol 5 mg 01/21/18 23:45 01/22/18 02:21 Haldol Injection (Fast Acting) - IM 5 mg Q4H PRN Administration AGITATION Daptomycin 650 mg/ Sodium 50 mls @ 100 mls/hr 01/23/18 13:45 01/24/18 11:43 Chloride IVPB 100 mls/hr DAILY SABINA Administration Protocol Lactated Ringer's 1,000 mls @ 75 mls/hr 01/24/18 19:36 01/24/18 21:07 Lactated Ringers Solution IV 75 mls/hr ASDIR SABINA Administration Magnesium Oxide 400 mg 01/25/18 11:03 Mag-Ox - PO 01/25/18 11:04 ONCE ONE Mupirocin 1 applic 01/20/18 22:00 01/25/18 02:53 Bactroban Ointment (For Decolonization) - NS 01/25/18 21:59 Not Given BID SABINA Nystatin 1 applic 01/20/18 22:00 01/24/18 21:10 Mycostatin Cream - TP 1 applic BID SABINA Administration Ondansetron HCl 4 mg 01/20/18 14:10 Zofran Injection IVPUSH Q6H PRN NAUSEA AND/OR VOMITING Pantoprazole Sodium 40 mg 01/21/18 10:00 01/25/18 10:34 Protonix - PO 40 mg DAILY SABINA Administration Polyethylene Glycol 17 gm 01/21/18 22:00 01/24/18 21:09 Miralax (For Daily Use) - PO Not Given BID SABINA Rifampin 300 mg 01/23/18 10:00 01/25/18 10:33 Rifadin - PO 300 mg BID SABINA Administration Senna 2 tab 01/21/18 14:42 01/24/18 21:11 Senna - PO Not Given HS SABINA Trazodone HCl 150 mg 01/20/18 22:00 01/24/18 21:08 Desyrel - PO 150 mg HS SABINA Administration ASSESSMENT/PLAN: 82 year old male with a hx of COPD, chronic urinary retention, spinal stenosis, and multiple falls is post op day s/p T12-L4 laminectomies, T9-pelvis posterior instrumentation, T9-S1 cold strip feeder-lateral arthrodesis, Autograft, Allograft, and Bone marrow aspirate. s/p POD# 3 s/p washout and cultures sent s/p washout and wound VAC placement on 01/20 then on 01/23 patient had wound closure. Sepsis/Low grade fever: secondary to UTI and hospital acquired pneumonia. Possible patient also has a bacteremia. Patient also has wound infection and infected hardware at this point. MRSA Bacteremia Continue Daptomycin continue rifampin will need to be on termite control servicer Abx per ID as well as lifelong suppressive ABx. echo- r/o endocarditis-no vegetations ID consult much appreciated Urine culture growing gram negative bacili-sensitive to zosyn Leukocytosis resolved Lower back pain: L1, L3 compression fractures, Kyphosis, Spinal stenosis, Segmental instability, Progressive neurological decline s/p T12-L4 laminectomies , T9-pelvis posterior instrumentation, T9-S1 cold strip feeder-lateral arthrodesis, Autograft, Allograft, and Bone marrow aspirate. s/p washout and cultures sent s /p washout and wound VAC placement s/p closure of wound and drain placement Continue spinal stimulator Cultures from OR all growing MRSA Pain is well controlled at this time PT consult appreciated Incentive spirometry Dr. Roberts spoke to family Might take patient back to OR Tuesday for removal of VAC and closure of wound. COPD not in exacerbation: Continue Duonebs Scheduled albuterol Nebs PRN Chest PT BID patient on Dulera at home on symbicort here O2 PRN and while sleeping pulmonology consult appreciated incentive spirometry Chronic Urinary Retention holder in for now To continue self catheterizing at home Chronic constipation: miralax history of AAA s/p stenting no issues at this time acute on chronic Anemia. Hb 7.6 at this time. s/p 3 unit PRBC total for this hospital stay Hb Stable at this time continue to trend and transfuse PRN FEN LR @ 75ml/hr Regular diet magnesium 400mg po once for hypomagnesemia Regular diet Prophylaxis SCDs-No chemical PPx per spine surgery Protonix for GERD PT consult Case discussed with Dr. Willis ICU care CCTime 37min Visit type - Emergency Visit Emergency Visit: No - New Patient This patient is new to me today: No - Critical Care Critical Care patient: Yes Total Critical Care Time (in minutes): 37 Critical Care Statement: The care of this patient involved high complexity decision making to prevent further life threatening deterioration of the patient 's condition and/or to evaluate & treat vital organ system(s) failure or risk of failure.
[2018-01-25] MEDS: DAPTOMYCIN 650 MG in SODIUM CHLORIDE 50 ML IVPB SCH (11:46)
[2018-01-25] MEDS: POLYETHYLENE GLYCOL 3350 119 GM BTL PO SCH ×2 (11:47→21:31)
[2018-01-25] MEDS: NYSTATIN 100,000 UNIT/GM TOPICAL CREAM 15 GM TUBE TP SCH ×2 (11:47→21:31)
[2018-01-25] MEDS: BUDESONIDE/FORMETEROL FUMARATE 160/4.5 mcg INHALER IH SCH ×2 (11:48→21:32)
--- NOTE | 2018-01-25 12:17 | PN ---
Teaching Attending Note Name of Resident: Shay Kincaid ATTENDING PHYSICIAN STATEMENT I saw and evaluated the patient. I reviewed the resident's note and discussed the case with the resident. I agree with the resident's findings and plan as documented. SUBJECTIVE: Pt seen and examined in the ICU. States pain controlled. Denies shortness of breath. No fevers recorded. OBJECTIVE: Vital Signs Period Temp Pulse Resp BP Sys/Hyman Pulse Ox Last 24 Hr 98.4 F-98.6 F 86-95 17-20 109-181/43-71 Intake & Output 01/22/18 01/23/18 01/24/18 01/25/18 23:59 23:59 23:59 23:59 Intake Total 6249 190 3523 560 Output Total 3900 1450 3220 600 Balance -2024 -550 380 -40 Weight 86.353 kg 84.141 kg 81.7 kg Gen: mildly tachypneic at rest Heart: RRR Lung: scattered rhonchi Abd: soft, nontender Ext: no edema CBC, BMP 01/25/18 05:30 01/25/18 05:30 Active Medications Acetaminophen (Tylenol -) 1,000 mg PO Q6H PRN PRN Reason: PAIN LEVEL 1 - 3 Last Admin: 01/25/18 10:32 Dose: 1,000 mg Albuterol/Ipratropium (Duoneb -) 1 amp NEB RTID [facility] Last Admin: 01/25/18 08:16 Dose: 1 amp Amino Acids (Prosource No Carb Liquid Pkt) 30 ml PO BID@0800,1730 [facility] Last Admin: 01/25/18 10:32 Dose: 30 ml Benzocaine/Menthol (Cepacol Lozenge -) 1 each MM PRN PRN PRN Reason: SORE THROAT Budesonide/Formoterol Fumarate (Symbicort 160/4.5mcg -) 2 puff IH BID [facility] Last Admin: 01/25/18 11:48 Dose: 2 puff Chlorhexidine Gluconate (Hibiclens For Decolonization -) 1 applic TP HS [facility] Last Admin: 01/24/18 21:08 Dose: 1 applic Docusate Sodium (Colace -) 300 mg PO HS [facility] Last Admin: 01/24/18 21:09 Dose: Not Given Haloperidol (Haldol Injection (Fast Acting) -) 5 mg IM Q4H PRN PRN Reason: AGITATION Last Admin: 01/22/18 02:21 Dose: 5 mg Daptomycin 650 mg/ Sodium (Chloride) 50 mls @ 100 mls/hr IVPB DAILY [facility]; Protocol Last Admin: 01/25/18 11:46 Dose: 100 mls/hr Mupirocin (Bactroban Ointment (For Decolonization) -) 1 applic NS BID [facility] Stop: 01/25/18 21:59 Last Admin: 01/25/18 11:46 Dose: 1 applic Nystatin (Mycostatin Cream -) 1 applic TP BID [facility] Last Admin: 01/25/18 11:47 Dose: 1 applic Ondansetron HCl (Zofran Injection) 4 mg IVPUSH Q6H PRN PRN Reason: NAUSEA AND/OR VOMITING Pantoprazole Sodium (Protonix -) 40 mg PO DAILY [facility] Last Admin: 01/25/18 10:34 Dose: 40 mg Polyethylene Glycol (Miralax (For Daily Use) -) 17 gm PO BID [facility] Last Admin: 01/25/18 11:47 Dose: Not Given Rifampin (Rifadin -) 300 mg PO BID [facility] Last Admin: 01/25/18 10:33 Dose: 300 mg Senna (Senna -) 2 tab PO [facility] Last Admin: 01/24/18 21:11 Dose: Not Given Trazodone HCl (Desyrel -) 150 mg PO [facility] Last Admin: 01/24/18 21:08 Dose: 150 mg ASSESSMENT AND PLAN: Lumbar Compression Fractures s/p T12-L4 Laminectomies/T9-pelvis instrumentation/T9-S1 posterior lateral arthrodesis Acute COPD Exacerbation improved Chronic Hypoxic Respiratory Failure Pneumonia Back Wound Infection MRSA Bacteremia Anemia - continue antibiotics per ID - f/u pending cultures - inhaled bronchodilators standing and PRN - pain control - incentive spirometry - O2 to keep SpO2 >90% - PO as tolerated - bowel regimen - rehab/PT - DVT prophylaxis - can monitor on floor
--- NOTE | 2018-01-25 12:58 | PN ---
Teaching Attending Note Name of Resident: Nahid Mata ATTENDING PHYSICIAN STATEMENT I saw and evaluated the patient. I reviewed the resident's note and discussed the case with the resident. I agree with the resident's findings and plan as documented. SUBJECTIVE: Patient has no complaints. OBJECTIVE: Vital Signs Period Temp Pulse Resp BP Sys/Hyman Pulse Ox Last 24 Hr 98.4 F-98.6 F 86-95 17-20 109-181/43-71 HEART: S1S2, RRR LUNGS: Scattered rhonchi ABDOMEN: Soft, non-tender, non-distended, normal BS EXTREMITIES: No edema Laboratory Results - last 24 hr 01/25/18 01/25/18 05:30 05:30 WBC 8.2 RBC 2.67 L Hgb 7.6 L Hct 23.0 L MCV 86.1 MCH 28.3 MCHC 32.9 RDW 14.4 Plt Count 315 MPV 7.4 L Sodium 139 Potassium 3.7 Chloride 104 Carbon Dioxide 29 Anion Gap 6 L BUN 25 H Creatinine 0.8 Creat Clearance w eGFR > 60 Random Glucose 100 Calcium 8.0 L Phosphorus 2.5 Magnesium 1.8 Current Medications Generic Name Dose Route Start Last Admin Trade Name Freq PRN Reason Stop Dose Admin Acetaminophen 1,000 mg 01/20/18 14:10 01/25/18 10:32 Tylenol - PO 1,000 mg Q6H PRN Administration PAIN LEVEL 1 - 3 Albuterol/Ipratropium 1 amp 01/20/18 20:00 01/25/18 08:16 Duoneb - NEB 1 amp RTID SABINA Administration Amino Acids 30 ml 01/20/18 17:30 01/25/18 10:32 Prosource No Carb Liquid Pkt PO 30 ml BID@0800,1730 SABINA Administration Benzocaine/Menthol 1 each 01/20/18 14:10 Cepacol Lozenge - MM PRN PRN SORE THROAT Budesonide/Formoterol Fumarate 2 puff 01/20/18 22:00 01/25/18 11:48 Symbicort 160/4.5mcg - IH 2 puff BID SABINA Administration Chlorhexidine Gluconate 1 applic 01/20/18 22:00 01/24/18 21:08 Hibiclens For Decolonization - TP 1 applic HS SABINA Administration Docusate Sodium 300 mg 01/21/18 22:00 01/24/18 21:09 Colace - PO Not Given HS SABINA Haloperidol 5 mg 01/21/18 23:45 01/22/18 02:21 Haldol Injection (Fast Acting) - IM 5 mg Q4H PRN Administration AGITATION Daptomycin 650 mg/ Sodium 50 mls @ 100 mls/hr 01/23/18 13:45 01/25/18 11:46 Chloride IVPB 100 mls/hr DAILY SABINA Administration Protocol Mupirocin 1 applic 01/20/18 22:00 01/25/18 11:46 Bactroban Ointment (For Decolonization) - NS 01/25/18 21:59 1 applic BID SABINA Administration Nystatin 1 applic 01/20/18 22:00 01/25/18 11:47 Mycostatin Cream - TP 1 applic BID SABINA Administration Ondansetron HCl 4 mg 01/20/18 14:10 Zofran Injection IVPUSH Q6H PRN NAUSEA AND/OR VOMITING Pantoprazole Sodium 40 mg 01/21/18 10:00 01/25/18 10:34 Protonix - PO 40 mg DAILY SABINA Administration Polyethylene Glycol 17 gm 01/21/18 22:00 01/25/18 11:47 Miralax (For Daily Use) - PO Not Given BID SABINA Rifampin 300 mg 01/23/18 10:00 01/25/18 10:33 Rifadin - PO 300 mg BID SABINA Administration Senna 2 tab 01/21/18 14:42 01/24/18 21:11 Senna - PO Not Given HS SABINA Trazodone HCl 150 mg 01/20/18 22:00 01/24/18 21:08 Desyrel - PO 150 mg HS SABINA Administration ASSESSMENT AND PLAN: This is an 82 year old man a history of COPD, chronic urinary retention, lumbar compression fractures with spinal stenosis who was admitted for lumbar spine surgery. 1. Sepsis secondary to E. coli UTI, pneumonia, surgical wound infection with MRSA bacteremia - s/p incision, drainage, washout of deep thoracic and lumbar spine 01/17 - s/p washout and application of wound VAC 01/20 - s/p washout and closure of wound 01/23 - Continue Daptomycin, Rifampin - Blood cultures 01/10 growing MRSA - Blood cultures 01/12 growing MRSA - Blood cultures 01/15 negative after 5 days - Wound cultures growing MRSA - Echo shows normal LV, normal LV systolic function, LVEF 60-65%, E/A reversal, normal RV systolic function, trace NH - Plan for antibiotics x 6-8 weeks followed by lifelong suppressive therapy with Bactrim 2. Lumbar spinal stenosis, lumbar compression fractures, lumbar kyphosis - s/p T12-L4 laminectomies, T9-pelvis posterior instrumentation, T9-S1 posterolateral arthrodesis 01/03 3. Acute exacerbation of COPD - Improved - Continue Symbicort, DuoNeb, oxygen - Prednisone was discontinued 01/17 - Patient was steroid-dependent at home 4. Chronic hypoxic respiratory failure - Oxygen to maintain saturation >90% 5. Anemia - Likely acute blood loss and sepsis on chronic anemia - Transfused 3 units PRBCs this admission - Continue to monitor hgb and keep > 8.0 6. Chronic urinary retention - Patient does self-catheterization at home - Has Reyes catheter 7. Constipation - Continue Colace, Senna, Miralax
--- NOTE | 2018-01-25 13:29 | PN ---
Physical Exam: SUBJECTIVE: Patient seen and examined at bedside. Alert c/o pain at surgical site, no other complaints. OBJECTIVE: Vital Signs Period Temp Pulse Resp BP Sys/Hyman Pulse Ox Last 24 Hr 98.4 F-98.6 F 74-95 17-20 109-181/43-71 GENERAL: A&Ox3, NAD HEAD: NC/AT EYES: PERRLA, EOMI ENT: moist mucous membranes NECK: Trachea midline, supple LUNGS: Unable to access back, anteriorly CTA b/l HEART: RRR no m/r/g ABDOMEN: +bs, soft, NT, ND EXTREMITIES: 2+ pulses, warm, well-perfused, no edema. 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 SKIN: Unable to access back DRAINS: serosanguinous drainage in surgical drain, holder draining bright orange- tinted urine 2/2 rifampin Laboratory Results - last 24 hr 01/25/18 01/25/18 05:30 05:30 WBC 8.2 RBC 2.67 L Hgb 7.6 L Hct 23.0 L MCV 86.1 MCH 28.3 MCHC 32.9 RDW 14.4 Plt Count 315 MPV 7.4 L Sodium 139 Potassium 3.7 Chloride 104 Carbon Dioxide 29 Anion Gap 6 L BUN 25 H Creatinine 0.8 Creat Clearance w eGFR > 60 Random Glucose 100 Calcium 8.0 L Phosphorus 2.5 Magnesium 1.8 Active Medications Generic Name Dose Route Start Last Admin Trade Name Freq PRN Reason Stop Dose Admin Acetaminophen 1,000 mg 01/20/18 14:10 01/25/18 10:32 Tylenol - PO 1,000 mg Q6H PRN Administration PAIN LEVEL 1 - 3 Albuterol/Ipratropium 1 amp 01/20/18 20:00 01/25/18 08:16 Duoneb - NEB 1 amp RTID SABINA Administration Amino Acids 30 ml 01/20/18 17:30 01/25/18 10:32 Prosource No Carb Liquid Pkt PO 30 ml BID@0800,1730 SABINA Administration Benzocaine/Menthol 1 each 01/20/18 14:10 Cepacol Lozenge - MM PRN PRN SORE THROAT Budesonide/Formoterol Fumarate 2 puff 01/20/18 22:00 01/25/18 11:48 Symbicort 160/4.5mcg - IH 2 puff BID SABINA Administration Chlorhexidine Gluconate 1 applic 01/20/18 22:00 01/24/18 21:08 Hibiclens For Decolonization - TP 1 applic HS SABINA Administration Docusate Sodium 300 mg 01/21/18 22:00 01/24/18 21:09 Colace - PO Not Given HS SABINA Haloperidol 5 mg 01/21/18 23:45 01/22/18 02:21 Haldol Injection (Fast Acting) - IM 5 mg Q4H PRN Administration AGITATION Daptomycin 650 mg/ Sodium 50 mls @ 100 mls/hr 01/23/18 13:45 01/25/18 11:46 Chloride IVPB 100 mls/hr DAILY SABINA Administration Protocol Mupirocin 1 applic 01/20/18 22:00 01/25/18 11:46 Bactroban Ointment (For Decolonization) - NS 01/25/18 21:59 1 applic BID SABINA Administration Nystatin 1 applic 01/20/18 22:00 01/25/18 11:47 Mycostatin Cream - TP 1 applic BID SABNIA Administration Ondansetron HCl 4 mg 01/20/18 14:10 Zofran Injection IVPUSH Q6H PRN NAUSEA AND/OR VOMITING Pantoprazole Sodium 40 mg 01/21/18 10:00 01/25/18 10:34 Protonix - PO 40 mg DAILY SABINA Administration Polyethylene Glycol 17 gm 01/21/18 22:00 01/25/18 11:47 Miralax (For Daily Use) - PO Not Given BID SABINA Rifampin 300 mg 01/23/18 10:00 01/25/18 10:33 Rifadin - PO 300 mg BID SABINA Administration Senna 2 tab 01/21/18 14:42 01/24/18 21:11 Senna - PO Not Given HS SABINA Trazodone HCl 150 mg 01/20/18 22:00 01/24/18 21:08 Desyrel - PO 150 mg HS SABINA Administration ASSESSMENT/PLAN: 82 y/o M w/ PMHx COPD, chronic urinary retention, aortic aneurysm admitted to ICU s/p lumbar Sx complicated by MRSA infection of hardware, bacteremia, UTI PNA #Sepsis Secondary to UTI, PNA, and Surgical Wound Infection with MRSA -Patient s/p incision, drainage, washout of deep thoracic and lumbar spine 01/17 and washout of an infected thoracic/lumber spinal incision S/P posterior fusion with wound vac placement 01/20 -POD2 s/p thoracolumbar wound debridement with lavage and complex closure -Repeat blood Cx negative -repeat wound Cx: MRSA -Daptomycin/Rifampin w/ ID on board -Continue pain control with Roxicodone and Morphine #Lumbar Spinal Stenosis with Lumbar compression fx and kyphosis -s/p T12-L4 laminectomies, T9-pelvis posterior instrumentation, T9-S1 posterolateral arthrodesis 01/03 -s/p posterior fusion with wound vac placement 01/20 -POD2 s/p thoracolumbar wound debridement with lavage and complex closure #Acute exacerbation of COPD #resolved -Continue Symbicort and Duonebs -02 PRN -Chest PT BID #Chronic hypoxic respiratory failure-resolved -02 PRN -Maintain saturation >90% -Chest PT BID #Normocytic Anemia -Hb dropped 1.1 since yesterday -likely dilutional effect of high rate IVF -further IVF held -monitor CBC #Chronic urinary retention -Patient does self-catheterization at home -Continue to maintain holder catheter #Opiate Induced Constipation -Continue bowel regimen with colace, senna, and miralax #History of AAA s/p stenting -No issues at this time #PPx -DVT: SCDs -GI: Protonix, Senna/colace, Miralax #F/E/N -no IVF -monitor lytes -regular diet #Disposition -Full code -transfer to [facility]-surg Visit type - Emergency Visit Emergency Visit: No - New Patient This patient is new to me today: No - Critical Care Critical Care patient: Yes Total Critical Care Time (in minutes): 40 Critical Care Statement: The care of this patient involved high complexity decision making to prevent further life threatening deterioration of the patient 's condition and/or to evaluate & treat vital organ system(s) failure or risk of failure.
--- NOTE | 2018-01-25 17:42 | PATH ---
Surgical Pathology Report Patient Name: RACHEAL RUIZ [facility]. Rec. 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 Specimen(s) Received BONE AND TISSUE FROM WOUND Clinical History Thoracic lumbar wound Final Diagnosis BONE AND TISSUE FROM WOUND, THORACIC LUMBAR REGION, EXCISION: FRAGMENTS OF BONE WITH ACUTE OSTEOMYELITIS. ATTACHED FIBROADIPOSE TISSUE WITH ACUTE INFLAMMATION AND ABSCESS FORMATION. Electronically Signed Debby Jarrett M.D. Gross Description Received in formalin, labeled "bone and tissue from wound thoracic lumbar region" are multiple portions of bone tissue measuring 5 x 4 x 1cm in aggregate. Wedding Makeup Artist sections are submitted in 2 cassettes of the decalcification. MARTI/01/24/2018 simone/01/24/2018
[2018-01-25] MEDS ORDERED: ALBUTEROL SO4 2.5/IPRATROPIUM 0.5 INH SOL 3 ML VIAL.NEB. NEB ONE (20:09)
[2018-01-25] MEDS: traZODone HCL 50 MG TABLET (FP) PO SCH (21:23)
[2018-01-25] MEDS: HALOPERIDOL LACTATE 5 MG/ML IM PRN (21:23)
[2018-01-25] MEDS: CHLORHEXIDINE GLUCONATE 4% CLEANSER FOR DECOLONIZATION TP SCH (21:31)
[2018-01-25] MEDS: DOCUSATE SODIUM 100 MG CAPSULE (FP) PO SCH (21:31)
[2018-01-25] MEDS: SENNOSIDES 8.6MG TABLET (FP) PO SCH (21:32)
[2018-01-26] MEDS: ACETAMINOPHEN 500 MG TABLET (FP) PO PRN (01:45)
[2018-01-26 07:02] LABS: HEMATOCRIT 25.2 % (35.4-49); HEMOGLOBIN 8.3 GM/dL (11.7-16.9); MCH 28.5 pg (25.7-33.7); MCHC 32.8 g/dl (32.0-35.9); MEAN CELL VOLUME 86.7 fl (80-96); MEAN PLT VOLUME 7.3 fl (7.5-11.1); PLATELET COUNT 318 K/MM3 (134-434); RBC 2.91 M/mm3 (4.00-5.60); RDW 14.7 % (11.9-15.9); WHITE BLOOD COUNT 7.1 K/mm3 (4.0-10.0)
[2018-01-26 07:51] LABS: ALBUMIN 1.9 g/dl (3.4-5.0); ALK PHOS 111 U/L (45-117); ANION GAP 11 MMOL/L (8-16); BILIRUBIN,TOTAL 0.5 mg/dL (0.2-1); BLOOD UREA NITROGEN 20 mg/dL (7-18); CALCIUM 8.7 mg/dL (8.5-10.1); CHLORIDE 104 mmol/L (98-107); CO2 26 mmol/L (21-32); CREATININE 0.7 mg/dL (0.55-1.3); GLUCOSE,RANDOM 73 mg/dL (74-106); MAGNESIUM 1.9 mg/dL (1.8-2.4); PHOSPHOROUS 2.5 mg/dL (2.5-4.9); POTASSIUM 3.7 mmol/L (3.5-5.1); SGOT/AST 12 U/L (15-37); SGPT/ALT 22 U/L (13-61); SODIUM 141 mmol/L (136-145)
--- NOTE | 2018-01-26 10:12 | PN ---
Progress Note (short form) - Note Progress Note: PULMONARY Denies shortness of breath or chest pain. No fevers recorded. Vital Signs Period Temp Pulse Resp BP Sys/Hyman Pulse Ox Last 24 Hr 98.6 F-99.4 F 74-91 18-20 115-151/54-76 Gen: NAD at rest Heart: RRR Lung: scattered rhonchi Abd: soft, nontender Ext: no edema CBC, BMP 01/26/18 06:24 01/26/18 06:24 Active Medications Acetaminophen (Tylenol -) 1,000 mg PO Q6H PRN PRN Reason: PAIN LEVEL 1 - 3 Last Admin: 01/26/18 01:45 Dose: 1,000 mg Amino Acids (Prosource No Carb Liquid Pkt) 30 ml PO BID@0800,1730 [facility] Last Admin: 01/25/18 16:32 Dose: 30 ml Benzocaine/Menthol (Cepacol Lozenge -) 1 each MM PRN PRN PRN Reason: SORE THROAT Budesonide/Formoterol Fumarate (Symbicort 160/4.5mcg -) 2 puff IH BID [facility] Last Admin: 01/25/18 21:32 Dose: 2 puff Chlorhexidine Gluconate (Hibiclens For Decolonization -) 1 applic TP HS [facility] Last Admin: 01/25/18 21:31 Dose: Not Given Docusate Sodium (Colace -) 300 mg PO HS [facility] Last Admin: 01/25/18 21:31 Dose: Not Given Haloperidol (Haldol Injection (Fast Acting) -) 5 mg IM Q4H PRN PRN Reason: AGITATION Last Admin: 01/25/18 21:23 Dose: 5 mg Daptomycin 650 mg/ Sodium (Chloride) 50 mls @ 100 mls/hr IVPB DAILY [facility]; Protocol Last Admin: 01/25/18 11:46 Dose: 100 mls/hr Nystatin (Mycostatin Cream -) 1 applic TP BID [facility] Last Admin: 01/25/18 21:31 Dose: 1 applic Ondansetron HCl (Zofran Injection) 4 mg IVPUSH Q6H PRN PRN Reason: NAUSEA AND/OR VOMITING Pantoprazole Sodium (Protonix -) 40 mg PO DAILY [facility] Last Admin: 01/25/18 10:34 Dose: 40 mg Polyethylene Glycol (Miralax (For Daily Use) -) 17 gm PO BID [facility] Last Admin: 01/25/18 21:31 Dose: Not Given Rifampin (Rifadin -) 300 mg PO BID [facility] Last Admin: 01/25/18 21:31 Dose: 300 mg Senna (Senna -) 2 tab PO [facility] Last Admin: 01/25/18 21:32 Dose: Not Given Trazodone HCl (Desyrel -) 150 mg PO [facility] Last Admin: 01/25/18 21:23 Dose: 150 mg A/P Lumbar Compression Fractures s/p T12-L4 Laminectomies/T9-pelvis instrumentation/T9-S1 posterior lateral arthrodesis Acute COPD Exacerbation improved Chronic Hypoxic Respiratory Failure Pneumonia Back Wound Infection MRSA Bacteremia Anemia - continue antibiotics per ID - f/u pending cultures - inhaled bronchodilators standing and PRN - pain control - incentive spirometry - O2 to keep SpO2 >90% - PO as tolerated - bowel regimen - rehab/PT - DVT prophylaxis
[2018-01-26] MEDS ORDERED: PT OWN MED DRAWER 7, Y5N ONE ×2 (10:18→11:48)
[2018-01-26] MEDS: PANTOPRAZOLE 40 MG TABLET (FP) PO SCH (10:20)
[2018-01-26] MEDS: RIFAMPIN 300 MG CAPSULE PO SCH ×2 (10:20→21:28)
[2018-01-26] MEDS: AMINO ACIDS/PROTEIN HYDROLYS 30 ML LIQUID.PKT PO SCH ×2 (10:21→17:31)
[2018-01-26] MEDS: BUDESONIDE/FORMETEROL FUMARATE 160/4.5 mcg INHALER IH SCH ×2 (10:22→21:31)
[2018-01-26] MEDS: NYSTATIN 100,000 UNIT/GM TOPICAL CREAM 15 GM TUBE TP SCH ×2 (10:22→21:30)
[2018-01-26] MEDS: POLYETHYLENE GLYCOL 3350 119 GM BTL PO SCH ×2 (11:22→21:27)
[2018-01-26] MEDS: DAPTOMYCIN 650 MG in SODIUM CHLORIDE 50 ML IVPB SCH (12:08)
--- NOTE | 2018-01-26 13:51 | PN ---
Progress Note (short form) - Note Progress Note: s/p washout #2 alert still has a drain Vital Signs Period Temp Pulse Resp BP Sys/Hyman Pulse Ox Last 24 Hr 98.6 F-100.2 F 79-90 18-20 122-151/61-76 cor-rrr lungs clear abd soft,nt ext no edema still with drain in back CBC, BMP 01/26/18 06:24 01/26/18 06:24 Laboratory Tests 01/17/18 01/17/18 01/24/18 07:00 07:00 05:30 ESR 92 H C-Reactive Protein 11.2 H 6.1 H 01/24/18 05:30 ESR 53 H C-Reactive Protein a/p MRSA bacteremia-negative blood cultures 01/15 ecoli UTI surgical wound infection infected hardware- s/p washout [id number] cultures 01/23 s/p laminectomy T12 to L4 -01/03 continue vancomycin, add rifampin will require [facility] abx minimum 6 to 8 weeks and lifelong suppressive antibiotics with bactrim or minocycline to follow-d/w daughter at length-she is aware follow labs esr/crp trending down, follow weekly d/w primary service who spoke to surgeon today who will come to examine the surgical wound, ?remove drain Problem List - Problems (1) Fever Code(s): R50.9 - FEVER, UNSPECIFIED (2) Status post laminectomy Code(s): Z98.890 - OTHER SPECIFIED POSTPROCEDURAL STATES
[2018-01-26 13:57] VITALS: BMI 23.1
--- NOTE | 2018-01-26 17:12 | PN ---
Physical Exam: SUBJECTIVE: Patient seen and examined this morning at bedside. No new complaints at this time. OBJECTIVE: Vital Signs Period Temp Pulse Resp BP Sys/Hyman Pulse Ox Last 24 Hr 98.6 F-100.2 F 79-91 18-20 122-151/54-76 GENERAL: A&O to person and location, NAD, Surgical drain present at bedside, Red blood present in drain HEAD: NCAT EYES: PERRL, EOMI ENT: Oropharynx clear without exudates, moist mucous membranes. NECK: No JVD LUNGS: Unable to assess posterior breath sounds, Anterior Breath sounds are clear to auscultation bilaterally HEART: Regular rate and rhythm, S1, S2 without murmur ABDOMEN: Soft, nontender, nondistended, + bowel sounds : holder draining dark yellow urine EXTREMITIES: 2+ pulses, no edema. NEUROLOGICAL: Cranial nerves II through XII grossly intact. No focal deficits appreciated. Distal UE tremor present R>L SKIN: Warm, dry, normal turgor, no rashes or lesions noted Laboratory Results - last 24 hr 01/26/18 01/26/18 06:24 06:24 WBC 7.1 RBC 2.91 L Hgb 8.3 L Hct 25.2 L MCV 86.7 MCH 28.5 MCHC 32.8 RDW 14.7 Plt Count 318 MPV 7.3 L Sodium 141 Potassium 3.7 Chloride 104 Carbon Dioxide 26 Anion Gap 11 BUN 20 H Creatinine 0.7 Creat Clearance w eGFR > 60 Random Glucose 73 L Calcium 8.7 Phosphorus 2.5 Magnesium 1.9 Total Bilirubin 0.5 AST 12 L ALT 22 Alkaline Phosphatase 111 Total Protein 5.0 L Albumin 1.9 L Microbiology 01/23/18 07:10 Wound-Other Gram Stain - Final 01/23/18 07:10 Wound-Other Wound Culture - Preliminary Lactose Fermenting Neg Bacilli 01/20/18 15:30 Back Gram Stain - Final 01/20/18 15:30 Back Wound Culture - Final S Aureus 01/20/18 09:50 Wound-Other Gram Stain - Final 01/20/18 09:50 Wound-Other Wound Culture - Final Mr S Aureus 01/17/18 19:35 Abscess Gram Stain - Final 01/17/18 19:35 Abscess Wound Culture - Final Mr S Aureus 01/17/18 19:38 Tissue-Other Gram Stain - Final 01/17/18 19:38 Tissue-Other Tissue Culture - Final Staphylococcus Species 01/17/18 19:38 Tissue-Other Anaerobic Culture - Final 01/17/18 19:34 Abscess Gram Stain - Final 01/17/18 19:34 Abscess Wound Culture - Final S Aureus 01/15/18 09:00 Blood - Peripheral Venous Blood Culture - Final NO GROWTH AFTER 5 DAYS INCUBATION 01/15/18 06:30 Blood - Peripheral Venous Blood Culture - Final NO GROWTH AFTER 5 DAYS INCUBATION 01/12/18 23:40 Blood - Peripheral Venous Blood Culture - Final S Aureus 01/12/18 23:40 Blood - Peripheral Venous Blood Culture - Final S Aureus 01/10/18 19:00 Blood - Peripheral Venous Blood Culture - Final S Aureus 01/10/18 18:00 Blood - Peripheral Venous Blood Culture - Final S Aureus 01/10/18 15:00 Urine - Urine - Catheterized Urine Culture - Final Escherichia Coli Active Medications Acetaminophen (Tylenol -) 1,000 mg PO Q6H PRN PRN Reason: PAIN LEVEL 1 - 3 Last Admin: 01/26/18 01:45 Dose: 1,000 mg Amino Acids (Prosource No Carb Liquid Pkt) 30 ml PO BID@0800,1730 [facility] Last Admin: 01/26/18 10:21 Dose: 30 ml Benzocaine/Menthol (Cepacol Lozenge -) 1 each MM PRN PRN PRN Reason: SORE THROAT Budesonide/Formoterol Fumarate (Symbicort 160/4.5mcg -) 2 puff IH BID [facility] Last Admin: 01/26/18 10:22 Dose: 2 puff Chlorhexidine Gluconate (Hibiclens For Decolonization -) 1 applic TP [facility] Last Admin: 01/25/18 21:31 Dose: Not Given Docusate Sodium (Colace -) 300 mg PO HS [facility] Last Admin: 01/25/18 21:31 Dose: Not Given Haloperidol (Haldol Injection (Fast Acting) -) 5 mg IM Q4H PRN PRN Reason: AGITATION Last Admin: 01/25/18 21:23 Dose: 5 mg Daptomycin 650 mg/ Sodium (Chloride) 50 mls @ 100 mls/hr IVPB DAILY [facility]; Protocol Last Admin: 01/26/18 12:08 Dose: 100 mls/hr Nystatin (Mycostatin Cream -) 1 applic TP BID [facility] Last Admin: 01/26/18 10:22 Dose: 1 applic Ondansetron HCl (Zofran Injection) 4 mg IVPUSH Q6H PRN PRN Reason: NAUSEA AND/OR VOMITING Pantoprazole Sodium (Protonix -) 40 mg PO DAILY [facility] Last Admin: 01/26/18 10:20 Dose: 40 mg Polyethylene Glycol (Miralax (For Daily Use) -) 17 gm PO BID [facility] Last Admin: 01/26/18 11:22 Dose: 17 gm Rifampin (Rifadin -) 300 mg PO BID [facility] Last Admin: 01/26/18 10:20 Dose: 300 mg Senna (Senna -) 2 tab PO HS [facility] Last Admin: 01/25/18 21:32 Dose: Not Given Trazodone HCl (Desyrel -) 150 mg PO HS [facility] Last Admin: 01/25/18 21:23 Dose: 150 mg IMAGING: - Fluoroscopy: Multiple spot radiographs of the lumbar spine obtained in the OR during a posterior fusion procedure are submitted. - CXR (01/04): There is no evidence of vascular congestive changes, pneumonia, pneumothorax, or large pleural effusion. - CXR (01/10): Since the prior study of 01/04/2018 at 1106 hours, there is new atelectasis or infiltrate at the left base. The remainder the study is unchanged. - US Abdomen: Mild hepatomegaly. Moderately distended gallbladder without evidence of cholelithiasis or acute pathology. AAA with stenting. - Echo: LVEF 60-65%, No regional wall motion abnormalities, Trace Pulmonic valve regurg, No pericardial effusion ASSESSMENT/PLAN: 82 y/o M w/ PMHx COPD, chronic urinary retention, aortic aneurysm admitted to ICU s/p lumbar Sx complicated by MRSA infection of hardware, bacteremia, UTI PNA 1. Sepsis -Secondary to UTI, PNA, and Surgical Wound Infection with MRSA -AFebrile, No Leukocytosis -UA (: 211 WBC, 3+ LE -CXR (01/10): New atelectasis or infiltrate at the left base -Echo noted above -S/P incision, drainage, washout of deep thoracic and lumbar spine (01/17) and washout of an infected thoracic/lumber spinal incision S/P posterior fusion with wound vac placement (01/20) -Blood and Urine Cx noted above -Wound Cx: MRSA -ID Consulted, Appreciate rec's -Continue Daptomycin, Rifampin (Started on 01/23) -Pain control with Roxicodone and Morphine 2. Lumbar Spinal Stenosis with Lumbar compression fx and kyphosis -s/p T12-L4 laminectomies, T9-pelvis posterior instrumentation, T9-S1 posterolateral arthrodesis (01/03) -s/p posterior fusion with wound vac placement (01/20) -POD#3 s/p thoracolumbar wound debridement with lavage and complex closure -Spoke with Dr. Roberts personally who will try to see patient this evening -Physical therapy requested 3. COPD exacerbation -resolved -Continue Symbicort, Duonebs, Oxygen, Chest PT -Pulmonology consulted: inhaled bronchodilators standing and PRN, incentive spirometry, keep SpO2 >90% 4. Normocytic Anemia -Hgb up to 8.3 this am -Continue to hold IVF -s/p 3 pRBC units transfused 5. Chronic urinary retention -Patient self-caths at home -Holder catheter present at this time 6. Constipation -Likely due to Opiate use s/p spinal surgery -Last BM 01/25 as per nursing staff -Continue colace, senna, and miralax 7. FEN -PO Fluids -Lytes wnl -Regular diet 8. PPx -DVT: SCDs -GI: Protonix, Senna/colace, Miralax Visit type - Emergency Visit Emergency Visit: Yes ED Registration Date: 01/03/18 Care time: The patient presented to the Emergency Department on the above date and was hospitalized for further evaluation of their emergent condition. - New Patient This patient is new to me today: Yes Date on this admission: 01/26/18 - Critical Care Critical Care patient: No - Discharge Referral Referred to [facility] Med P.C.: No
--- NOTE | 2018-01-26 17:23 | PN ---
Teaching Attending Note Name of Resident: Elli Sullivan ATTENDING PHYSICIAN STATEMENT I saw and evaluated the patient. I reviewed the resident's note and discussed the case with the resident. I agree with the resident's findings and plan as documented. SUBJECTIVE: Patient is having low grade fever of 100.2. NAD distress. OBJECTIVE: Vital Signs Temperature 100.2 F H 01/26/18 14:28 Pulse Rate 90 01/26/18 14:28 Respiratory Rate 18 01/26/18 16:16 Blood Pressure 122/63 01/26/18 14:28 O2 Sat by Pulse Oximetry (%) 95 01/24/18 00:32 Gen: lying in bed with no acute distress HEART: S1S2, RRR ABDOMEN: Soft, non-tender, non-distended, normal BS EXTREMITIES: No edema Neuro and back exam as per ortho. CBCD WBC 7.1 K/mm3 (4.0-10.0) 01/26/18 06:24 RBC 2.91 M/mm3 (4.00-5.60) L 01/26/18 06:24 Hgb 8.3 GM/dL (11.7-16.9) L 01/26/18 06:24 Hct 25.2 % (35.4-49) L 01/26/18 06:24 MCV 86.7 fl (80-96) 01/26/18 06:24 MCHC 32.8 g/dl (32.0-35.9) 01/26/18 06:24 RDW 14.7 % (11.9-15.9) 01/26/18 06:24 Plt Count 318 K/MM3 (134-434) 01/26/18 06:24 MPV 7.3 fl (7.5-11.1) L 01/26/18 06:24 CMP Sodium 141 mmol/L (136-145) 01/26/18 06:24 Potassium 3.7 mmol/L (3.5-5.1) 01/26/18 06:24 Chloride 104 mmol/L (98-107) 01/26/18 06:24 Carbon Dioxide 26 mmol/L (21-32) 01/26/18 06:24 Anion Gap 11 MMOL/L (8-16) 01/26/18 06:24 BUN 20 mg/dL (7-18) H 01/26/18 06:24 Creatinine 0.7 mg/dL (0.55-1.3) 01/26/18 06:24 Creat Clearance w eGFR > 60 (>60) 01/26/18 06:24 Random Glucose 73 mg/dL (74-106) L 01/26/18 06:24 Calcium 8.7 mg/dL (8.5-10.1) 01/26/18 06:24 Total Bilirubin 0.5 mg/dL (0.2-1) 01/26/18 06:24 AST 12 U/L (15-37) L 01/26/18 06:24 ALT 22 U/L (13-61) 01/26/18 06:24 Alkaline Phosphatase 111 U/L (45-117) 01/26/18 06:24 Total Protein 5.0 g/dl (6.4-8.2) L 01/26/18 06:24 Albumin 1.9 g/dl (3.4-5.0) L 01/26/18 06:24 CARDIAC ENZYMES Creatine Kinase 40 IU/L (26-308) 01/24/18 05:30 Current Medications Generic Name Dose Route Start Last Admin Trade Name Freq PRN Reason Stop Dose Admin Acetaminophen 1,000 mg 01/20/18 14:10 01/26/18 01:45 Tylenol - PO 1,000 mg Q6H PRN Administration PAIN LEVEL 1 - 3 Amino Acids 30 ml 01/20/18 17:30 01/26/18 10:21 Prosource No Carb Liquid Pkt PO 30 ml BID@0800,1730 SABINA Administration Benzocaine/Menthol 1 each 01/20/18 14:10 Cepacol Lozenge - MM PRN PRN SORE THROAT Budesonide/Formoterol Fumarate 2 puff 01/20/18 22:00 01/26/18 10:22 Symbicort 160/4.5mcg - IH 2 puff BID SABINA Administration Chlorhexidine Gluconate 1 applic 01/20/18 22:00 01/25/18 21:31 Hibiclens For Decolonization - TP Not Given HS SABINA Docusate Sodium 300 mg 01/21/18 22:00 01/25/18 21:31 Colace - PO Not Given HS SABINA Haloperidol 5 mg 01/21/18 23:45 01/25/18 21:23 Haldol Injection (Fast Acting) - IM 5 mg Q4H PRN Administration AGITATION Daptomycin 650 mg/ Sodium 50 mls @ 100 mls/hr 01/23/18 13:45 01/26/18 12:08 Chloride IVPB 100 mls/hr DAILY SABINA Administration Protocol Nystatin 1 applic 01/20/18 22:00 01/26/18 10:22 Mycostatin Cream - TP 1 applic BID SABINA Administration Ondansetron HCl 4 mg 01/20/18 14:10 Zofran Injection IVPUSH Q6H PRN NAUSEA AND/OR VOMITING Pantoprazole Sodium 40 mg 01/21/18 10:00 01/26/18 10:20 Protonix - PO 40 mg DAILY SABINA Administration Polyethylene Glycol 17 gm 01/21/18 22:00 01/26/18 11:22 Miralax (For Daily Use) - PO 17 gm BID SABINA Administration Rifampin 300 mg 01/23/18 10:00 01/26/18 10:20 Rifadin - PO 300 mg BID SABINA Administration Senna 2 tab 01/21/18 14:42 01/25/18 21:32 Senna - PO Not Given HS SABINA Trazodone HCl 150 mg 01/20/18 22:00 01/25/18 21:23 Desyrel - PO 150 mg HS SABINA Administration Home Medications Medication Instructions Recorded Albuterol 2.5/Ipratropium 0.5 1 amp NEB TID 12/14/17 [Duoneb -] Cholecalciferol (Vitamin D3) 800 unit PO DAILY 12/14/17 [Vitamin D -] Furosemide [Lasix -] 20 mg PO PRN PRN 12/14/17 Gabapentin [Neurontin] 300 mg PO BID 12/14/17 Mometasone/Formoterol [Dulera 200 2 inh IH BID 12/14/17 Mcg/5 Mcg Inhaler] Omeprazole 40 mg PO DAILY 12/14/17 Polyethylene Glycol 3350 [Clearlax] 17 gm PO DAILY 12/14/17 Prednisone 5 mg PO DAILY 12/14/17 Trazodone HCl 150 mg PO DAILY 12/14/17 Aspirin [ASA -] 81 mg PO DAILY 01/03/18 Albuterol Sulfate 0.5% [Ventolin 2.5 01/26/18 0.5% Nebulizing Soln. -] Ipratropium 0.02% Nebulizer 1 amp NEB QID 01/26/18 [Atrovent 0.02% Nebulizer -] Microbiology 01/23/18 07:10 Wound-Other Gram Stain - Final 01/23/18 07:10 Wound-Other Wound Culture - Preliminary Lactose Fermenting Neg Bacilli 01/20/18 15:30 Back Gram Stain - Final 01/20/18 15:30 Back Wound Culture - Final Mr S Aureus 01/20/18 09:50 Wound-Other Gram Stain - Final 01/20/18 09:50 Wound-Other Wound Culture - Final Mr S Aureus 01/17/18 19:35 Abscess Gram Stain - Final 01/17/18 19:35 Abscess Wound Culture - Final Mr S Aureus 01/17/18 19:38 Tissue-Other Gram Stain - Final 01/17/18 19:38 Tissue-Other Tissue Culture - Final Staphylococcus Species 01/17/18 19:38 Tissue-Other Anaerobic Culture - Final 01/17/18 19:34 Abscess Gram Stain - Final 01/17/18 19:34 Abscess Wound Culture - Final Mr S Aureus 01/15/18 09:00 Blood - Peripheral Venous Blood Culture - Final NO GROWTH AFTER 5 DAYS INCUBATION 01/15/18 06:30 Blood - Peripheral Venous Blood Culture - Final NO GROWTH AFTER 5 DAYS INCUBATION 01/12/18 23:40 Blood - Peripheral Venous Blood Culture - Final Mr S Aureus 01/12/18 23:40 Blood - Peripheral Venous Blood Culture - Final Mr S Aureus 01/10/18 19:00 Blood - Peripheral Venous Blood Culture - Final Mr S Aureus 01/10/18 18:00 Blood - Peripheral Venous Blood Culture - Final Mr S Aureus 01/10/18 15:00 Urine - Urine - Catheterized Urine Culture - Final Escherichia Coli Echo shows normal LV, normal LV systolic function, LVEF 60-65%, E/A reversal, normal RV systolic function, trace CO. ASSESSMENT AND PLAN: This is an 82 year old man a history of COPD, chronic urinary retention, lumbar compression fractures with spinal stenosis who was admitted for lumbar spine surgery. # s/p sepsis secondary to E. coli UTI, pneumonia, surgical wound infection with MRSA bacteremia s/p incision, drainage, washout of deep thoracic and lumbar spine 01/17, s/p washout and application of wound VAC 01/20, s/p washout and closure of wound 01/23. Continue Daptomycin, Rifampin Blb Cx 01/10, 01/12, growing MRSA, on 01/15 Blood cultures negative after 5 days. continue antibiotics x 6-8 weeks followed by lifelong suppressive therapy with Bactrim. # Lumbar spinal stenosis, lumbar compression fractures, lumbar kyphosis s/p T12- L4 laminectomies, T9-pelvis posterior instrumentation, T9-S1 posterolateral arthrodesis 01/03 #Acute exacerbation of COPD Improved, Continue Symbicort, DuoNeb, oxygen , completed Prednisone on 01/17, Patient was steroid-dependent at home # Chronic hypoxic respiratory failure keep Sa02 above >90% # Anemia s/p transfusion 3 units ,keep above > 8.0 # Chronic urinary retention , Patient does self-catheterization at home, Has Reyes catheter # Constipation continue Colace, Senna, Miralax DVT Px: SCds
[2018-01-26] MEDS ORDERED: DEXTROSE 5%-WATER 100 ML IVPB ONE ×2 (21:19→23:53)
[2018-01-26] MEDS ORDERED: PIPERACILLIN/TAZOBACTAM 4.5 GM VIAL IVPB ONE ×2 (21:19→23:53)
[2018-01-26] MEDS: PIPERACILLIN/TAZOB 4.5 GM 4.5 GM in DEXTROSE 5%-WATER 100 ML IVPB SCH (21:24)
[2018-01-26] MEDS: traZODone HCL 50 MG TABLET (FP) PO SCH (21:27)
[2018-01-26] MEDS: CHLORHEXIDINE GLUCONATE 4% CLEANSER FOR DECOLONIZATION TP SCH (21:27)
[2018-01-26] MEDS: SENNOSIDES 8.6MG TABLET (FP) PO SCH (21:29)
[2018-01-26] MEDS: DOCUSATE SODIUM 100 MG CAPSULE (FP) PO SCH (21:30)
[2018-01-27] MEDS: PIPERACILLIN/TAZOB 4.5 GM 4.5 GM in DEXTROSE 5%-WATER 100 ML IVPB SCH ×3 (01:27→17:15)
[2018-01-27] MEDS: ACETAMINOPHEN 500 MG TABLET (FP) PO PRN ×2 (02:36→17:11)
[2018-01-27 07:51] LABS: BASO % 0.9 % (0-2.0); HEMATOCRIT 25.5 % (35.4-49); HEMOGLOBIN 8.3 GM/dL (11.7-16.9); MCHC 32.5 g/dl (32.0-35.9); MEAN CELL VOLUME 86.4 fl (80-96); MEAN PLT VOLUME 8.4 fl (7.5-11.1); MONO % 9.2 % (3.8-10.2); NEUT % 64.9 % (42.8-82.8); RBC 2.95 M/mm3 (4.00-5.60); RDW 14.7 % (11.9-15.9); WHITE BLOOD COUNT 7.8 K/mm3 (4.0-10.0)
[2018-01-27] MEDS ORDERED: PT OWN MED DRAWER 7, Y5N ONE (09:07)
[2018-01-27] MEDS ORDERED: DEXTROSE 5%-WATER 100 ML IVPB ONE ×2 (09:08→17:07)
[2018-01-27] MEDS ORDERED: PIPERACILLIN/TAZOBACTAM 4.5 GM VIAL IVPB ONE ×2 (09:08→17:07)
[2018-01-27 09:10] LABS: ANION GAP 12 MMOL/L (8-16); BLOOD UREA NITROGEN 21 mg/dL (7-18); CALCIUM 8.7 mg/dL (8.5-10.1); CHLORIDE 104 mmol/L (98-107); CO2 24 mmol/L (21-32); CREATININE 0.9 mg/dL (0.55-1.3); GLUCOSE,RANDOM 73 mg/dL (74-106); PHOSPHOROUS 2.8 mg/dL (2.5-4.9); POTASSIUM 3.9 mmol/L (3.5-5.1); SODIUM 140 mmol/L (136-145)
[2018-01-27] MEDS: DAPTOMYCIN 650 MG in SODIUM CHLORIDE 50 ML IVPB SCH (09:35)
[2018-01-27] MEDS: AMINO ACIDS/PROTEIN HYDROLYS 30 ML LIQUID.PKT PO SCH ×2 (09:35→18:10)
[2018-01-27] MEDS: POLYETHYLENE GLYCOL 3350 119 GM BTL PO SCH ×2 (09:36→22:27)
[2018-01-27] MEDS: RIFAMPIN 300 MG CAPSULE PO SCH ×2 (09:36→22:18)
[2018-01-27] MEDS: PANTOPRAZOLE 40 MG TABLET (FP) PO SCH (09:36)
[2018-01-27] MEDS: BUDESONIDE/FORMETEROL FUMARATE 160/4.5 mcg INHALER IH SCH ×2 (09:37→22:26)
[2018-01-27] MEDS: NYSTATIN 100,000 UNIT/GM TOPICAL CREAM 15 GM TUBE TP SCH ×2 (09:38→22:21)
--- NOTE | 2018-01-27 11:15 | PN ---
Progress Note (short form) - Note Progress Note: PULMONARY Resting comfortably Cough mainly nonproductive Using incentive raphael temp spikes intermittently afeb now Gen: NAD at rest Heart: RRR Lung: scattered rhonchi Abd: soft, nontender Ext: no edema labs/meds/notes/images reviewed ASSESSMENT AND PLAN: MRSA bacteremia-negative blood cultures 01/15 ecoli UTI surgical wound infection infected hardware- s/p washout 01/[id number] cultures 01/23 COPD s/p ACUTE Exacerbation Chronic Hypoxic Respiratory Failure UTI - inhaled bronchodilators standing and PRN - pain control - incentive spirometry - on antibiotics as per ID - O2 to keep SpO2 >90% - PO as tolerated - DVT prophylaxis Stevenson FERRER MD
--- NOTE | 2018-01-27 11:30 | PN ---
Progress Note (short form) - Note Progress Note: oob in chair alert WALES- hearing aides not working Vital Signs Period Temp Pulse Resp BP Sys/Hyman Pulse Ox Last 24 Hr 98.4 F-100.5 F 87-90 18-20 122-139/62-63 cor-rrr lungs clear abd soft,nt ext no edema postop dressing in place with drain holder CBC, BMP 01/27/18 06:20 01/27/18 06:20 Laboratory Tests 01/17/18 01/17/18 01/24/18 07:00 07:00 05:30 ESR 92 H C-Reactive Protein 11.2 H 6.1 H 01/24/18 05:30 ESR 53 H C-Reactive Protein Microbiology 01/23/18 07:10 Wound-Other Gram Stain - Final 01/23/18 07:10 Wound-Other Wound Culture - Preliminary Lactose Fermenting Neg Bacilli 01/20/18 15:30 Back Gram Stain - Final 01/20/18 15:30 Back Wound Culture - Final Mr S Aureus 01/20/18 09:50 Wound-Other Gram Stain - Final 01/20/18 09:50 Wound-Other Wound Culture - Final Mr S Aureus 01/17/18 19:35 Abscess Gram Stain - Final 01/17/18 19:35 Abscess Wound Culture - Final Mr S Aureus 01/17/18 19:38 Tissue-Other Gram Stain - Final 01/17/18 19:38 Tissue-Other Tissue Culture - Final Staphylococcus Species 01/17/18 19:38 Tissue-Other Anaerobic Culture - Final 01/17/18 19:34 Abscess Gram Stain - Final 01/17/18 19:34 Abscess Wound Culture - Final Mr S Aureus 01/15/18 09:00 Blood - Peripheral Venous Blood Culture - Final NO GROWTH AFTER 5 DAYS INCUBATION 01/15/18 06:30 Blood - Peripheral Venous Blood Culture - Final NO GROWTH AFTER 5 DAYS INCUBATION 01/12/18 23:40 Blood - Peripheral Venous Blood Culture - Final Mr S Aureus 01/12/18 23:40 Blood - Peripheral Venous Blood Culture - Final Mr S Aureus 01/10/18 19:00 Blood - Peripheral Venous Blood Culture - Final Mr S Aureus 01/10/18 18:00 Blood - Peripheral Venous Blood Culture - Final Mr S Aureus 01/10/18 15:00 Urine - Urine - Catheterized Urine Culture - Final Escherichia Coli a/p low grade temp yesterday-blood cultures repeated, zosyn added for GNR in wound culture awaiting surgery followup MRSA bacteremia-negative blood cultures 01/15 ecoli UTI surgical wound infection infected hardware- s/p washout [id number]/1757-[id number]-[id number] cultures 01/23 s/p laminectomy T12 to L4 -01/03 will require alf abx minimum 6 to 8 weeks and lifelong suppressive antibiotics with bactrim or minocycline to follow-d/w daughter at length-she is aware follow labs esr/crp trending down, follow weekly attempted to reach surgeon last night- number left Problem List - Problems (1) Fever Code(s): R50.9 - FEVER, UNSPECIFIED (2) Status post laminectomy Code(s): Z98.890 - OTHER SPECIFIED POSTPROCEDURAL STATES
[2018-01-27] MEDS ORDERED: INSULIN (NOVOLOG) ASPART 100 UNITS/ML 10ML VIAL ONE (12:07)
[2018-01-27 12:52] LABS: PLATELET COUNT 209 K/MM3 (134-434); PLATELET ESTIMATE ADEQUATE
--- NOTE | 2018-01-27 12:55 | PN ---
Teaching Attending Note Name of Resident: Zabrina Sullivan ATTENDING PHYSICIAN STATEMENT I saw and evaluated the patient. I reviewed the resident's note and discussed the case with the resident. I agree with the resident's findings and plan as documented. SUBJECTIVE: Patient is comfortable with no acute distress. OBJECTIVE: Vital Signs Temperature 98.4 F 01/27/18 06:57 Pulse Rate 87 01/27/18 06:57 Respiratory Rate 20 01/27/18 06:57 Blood Pressure 139/62 01/27/18 06:57 O2 Sat by Pulse Oximetry (%) 95 01/24/18 00:32 Gen: lying in bed with no acute distress HEART: S1S2, RRR ABDOMEN: Soft, non-tender, non-distended, normal BS EXTREMITIES: No edema Neuro and back exam as per ortho. CBCD WBC 7.8 K/mm3 (4.0-10.0) 01/27/18 06:20 RBC 2.95 M/mm3 (4.00-5.60) L 01/27/18 06:20 Hgb 8.3 GM/dL (11.7-16.9) L 01/27/18 06:20 Hct 25.5 % (35.4-49) L 01/27/18 06:20 MCV 86.4 fl (80-96) 01/27/18 06:20 MCHC 32.5 g/dl (32.0-35.9) 01/27/18 06:20 RDW 14.7 % (11.9-15.9) 01/27/18 06:20 Plt Count 209 K/MM3 (134-434) D 01/27/18 06:20 MPV 8.4 fl (7.5-11.1) D 01/27/18 06:20 CMP Sodium 140 mmol/L (136-145) 01/27/18 06:20 Potassium 3.9 mmol/L (3.5-5.1) 01/27/18 06:20 Chloride 104 mmol/L (98-107) 01/27/18 06:20 Carbon Dioxide 24 mmol/L (21-32) 01/27/18 06:20 Anion Gap 12 MMOL/L (8-16) 01/27/18 06:20 BUN 21 mg/dL (7-18) H 01/27/18 06:20 Creatinine 0.9 mg/dL (0.55-1.3) 01/27/18 06:20 Creat Clearance w eGFR > 60 (>60) 01/27/18 06:20 Random Glucose 73 mg/dL (74-106) L 01/27/18 06:20 Calcium 8.7 mg/dL (8.5-10.1) 01/27/18 06:20 Total Bilirubin 0.5 mg/dL (0.2-1) 01/26/18 06:24 AST 12 U/L (15-37) L 01/26/18 06:24 ALT 22 U/L (13-61) 01/26/18 06:24 Alkaline Phosphatase 111 U/L (45-117) 01/26/18 06:24 Total Protein 5.0 g/dl (6.4-8.2) L 01/26/18 06:24 Albumin 1.9 g/dl (3.4-5.0) L 01/26/18 06:24 CARDIAC ENZYMES Creatine Kinase 40 IU/L (26-308) 01/24/18 05:30 Home Medications Medication Instructions Recorded Albuterol 2.5/Ipratropium 0.5 1 amp NEB TID 12/14/17 [Duoneb -] Cholecalciferol (Vitamin D3) 800 unit PO DAILY 12/14/17 [Vitamin D -] Furosemide [Lasix -] 20 mg PO PRN PRN 12/14/17 Gabapentin [Neurontin] 300 mg PO BID 12/14/17 Mometasone/Formoterol [Dulera 200 2 inh IH BID 12/14/17 Mcg/5 Mcg Inhaler] Omeprazole 40 mg PO DAILY 12/14/17 Polyethylene Glycol 3350 [Clearlax] 17 gm PO DAILY 12/14/17 Prednisone 5 mg PO DAILY 12/14/17 Trazodone HCl 150 mg PO DAILY 12/14/17 Aspirin [ASA -] 81 mg PO DAILY 01/03/18 Albuterol Sulfate 0.5% [Ventolin 2.5 01/26/18 0.5% Nebulizing Soln. -] Ipratropium 0.02% Nebulizer 1 amp NEB QID 01/26/18 [Atrovent 0.02% Nebulizer -] Current Medications Generic Name Dose Route Start Last Admin Trade Name Freq PRN Reason Stop Dose Admin Acetaminophen 1,000 mg 01/20/18 14:10 01/27/18 02:36 Tylenol - PO 1,000 mg Q6H PRN Administration PAIN LEVEL 1 - 3 Amino Acids 30 ml 01/20/18 17:30 01/27/18 09:35 Prosource No Carb Liquid Pkt PO 30 ml BID@0800,1730 SABINA Administration Benzocaine/Menthol 1 each 01/20/18 14:10 Cepacol Lozenge - MM PRN PRN SORE THROAT Budesonide/Formoterol Fumarate 2 puff 01/20/18 22:00 01/27/18 09:37 Symbicort 160/4.5mcg - IH 2 puff BID SABINA Administration Chlorhexidine Gluconate 1 applic 01/20/18 22:00 01/26/18 21:27 Hibiclens For Decolonization - TP Not Given HS SABINA Docusate Sodium 300 mg 01/21/18 22:00 01/26/18 21:30 Colace - PO Not Given HS SABINA Haloperidol 5 mg 01/21/18 23:45 01/25/18 21:23 Haldol Injection (Fast Acting) - IM 5 mg Q4H PRN Administration AGITATION Daptomycin 650 mg/ Sodium 50 mls @ 100 mls/hr 01/23/18 13:45 01/27/18 09:35 Chloride IVPB 100 mls/hr DAILY SABINA Administration Protocol Piperacillin Sod/Tazobactam 100 mls @ 200 mls/hr 01/26/18 21:15 01/27/18 09: 36 Sod 4.5 gm/ Dextrose IVPB 200 mls/hr Q8H-IV SABINA Administration Protocol Nystatin 1 applic 01/20/18 22:00 01/27/18 09:38 Mycostatin Cream - TP 1 applic BID SABINA Administration Ondansetron HCl 4 mg 01/20/18 14:10 Zofran Injection IVPUSH Q6H PRN NAUSEA AND/OR VOMITING Pantoprazole Sodium 40 mg 01/21/18 10:00 01/27/18 09:36 Protonix - PO 40 mg DAILY SABINA Administration Polyethylene Glycol 17 gm 01/21/18 22:00 01/27/18 09:36 Miralax (For Daily Use) - PO Not Given BID SABINA Rifampin 300 mg 01/23/18 10:00 01/27/18 09:36 Rifadin - PO 300 mg BID SABINA Administration Senna 2 tab 01/21/18 14:42 01/26/18 21:29 Senna - PO Not Given HS SABINA Trazodone HCl 150 mg 01/20/18 22:00 01/26/18 21:27 Desyrel - PO 150 mg HS SABINA Administration Microbiology 01/23/18 07:10 Wound-Other Gram Stain - Final 01/23/18 07:10 Wound-Other Wound Culture - Preliminary Escherichia Coli 01/20/18 15:30 Back Gram Stain - Final 01/20/18 15:30 Back Wound Culture - Final Mr S Aureus 01/20/18 09:50 Wound-Other Gram Stain - Final 01/20/18 09:50 Wound-Other Wound Culture - Final Mr S Aureus 01/17/18 19:35 Abscess Gram Stain - Final 01/17/18 19:35 Abscess Wound Culture - Final Mr S Aureus 01/17/18 19:38 Tissue-Other Gram Stain - Final 01/17/18 19:38 Tissue-Other Tissue Culture - Final Staphylococcus Species 01/17/18 19:38 Tissue-Other Anaerobic Culture - Final 01/17/18 19:34 Abscess Gram Stain - Final 01/17/18 19:34 Abscess Wound Culture - Final Mr S Aureus 01/15/18 09:00 Blood - Peripheral Venous Blood Culture - Final NO GROWTH AFTER 5 DAYS INCUBATION 01/15/18 06:30 Blood - Peripheral Venous Blood Culture - Final NO GROWTH AFTER 5 DAYS INCUBATION 01/12/18 23:40 Blood - Peripheral Venous Blood Culture - Final Mr S Aureus 01/12/18 23:40 Blood - Peripheral Venous Blood Culture - Final Mr S Aureus 01/10/18 19:00 Blood - Peripheral Venous Blood Culture - Final Mr S Aureus 01/10/18 18:00 Blood - Peripheral Venous Blood Culture - Final Mr S Aureus 01/10/18 15:00 Urine - Urine - Catheterized Urine Culture - Final Escherichia Coli Echo shows normal LV, normal LV systolic function, LVEF 60-65%, E/A reversal, normal RV systolic function, trace ND. ASSESSMENT AND PLAN: This is an 82 year old man a history of COPD, chronic urinary retention, lumbar compression fractures with spinal stenosis who was admitted for lumbar spine surgery. # POD# 20 (01/03/2018) s/p T12-L4 laminectomies. 2. T9-pelvis posterior instrumentation. 3. T9-S1 business development coordinator-lateral arthrodesis. 4. Autograft. 5. Allograft. 6. Bone marrow aspirate. patient had 3 wash outs by the surgeon. # s/p sepsis secondary surgical wound infection with MRSA Bacteremia s/p incision & drainage, washout of deep thoracic and lumbar spine 01/17, s/p washout and application of wound VAC 01/20, s/p washout and closure of wound growing Wound Culture - Escherichia Coli ,started on Zosyn a sper ID, continue Daptomycin, Rifampin. Blb Cx 01/10, 01/12, growing MRSA, on 01/15 Blood cultures negative after 5 days. Continue antibiotics x 6-8 weeks followed by lifelong suppressive therapy with Bactrim. # E. coli UTI on IV Zosyn continue #Acute exacerbation of COPD Improved, Continue Symbicort, DuoNeb, oxygen , completed Prednisone on 01/17, Patient was steroid-dependent at home # Chronic hypoxic respiratory failure keep Sa02 above >90% # Anemia s/p transfusion 3 units ,keep above > 8.0 # Chronic urinary retention , Patient does self-catheterization at home, Has Reyes catheter # Constipation continue Colace, Senna, Miralax DVT Px: SCds discussed with the surgical PA ( will see the patient tonight)
--- NOTE | 2018-01-27 13:11 | PN ---
Physical Exam: SUBJECTIVE: Patient seen and examined at bedside. Temp overnight reach 100.5. Passed large BM this morning. No new complaints. OBJECTIVE: Vital Signs Period Temp Pulse Resp BP Sys/Hyman Pulse Ox Last 24 Hr 98.4 F-100.5 F 87-90 18-20 122-139/62-63 Intake & Output 01/26/18 01/27/18 01/27/18 23:59 11:59 23:59 Intake Total 470 100 Output Total 320 320 Balance 150 -220 Intake: IVPB 200 100 Oral 270 Output: Drainage 20 20 Posterior Back 20 20 Urine 300 300 Holder 300 300 Other: Voiding Method Indwelling Catheter Indwelling Catheter Bowel Movement Yes Yes # Bowel Movements 1 Body Mass Index (BMI) 23.1 GENERAL: A&O to person and location, NAD, Surgical drain present at bedside, Drainage noted above HEAD: NCAT ENT: Oropharynx clear without exudates, moist mucous membranes. NECK: No JVD LUNGS: Unable to assess posterior breath sounds, Anterior Breath sounds are clear to auscultation bilaterally HEART: Regular rate and rhythm, S1, S2 without murmur ABDOMEN: Soft, nontender, nondistended, + bowel sounds : holder draining yellow urine EXTREMITIES: 2+ pulses, no edema, wearing SCDs Laboratory Results - last 24 hr 01/27/18 01/27/18 06:20 06:20 WBC 7.8 RBC 2.95 L Hgb 8.3 L Hct 25.5 L MCV 86.4 MCH 28.0 MCHC 32.5 RDW 14.7 Plt Count 209 D MPV 8.4 D Absolute Neuts (auto) 5.1 Neutrophils % 64.9 Lymphocytes % 21.0 D Monocytes % 9.2 Eosinophils % 4.0 D Basophils % 0.9 D Nucleated RBC % 0 Platelet Estimate Adequate Platelet Comment Mod plt clumping Sodium 140 Potassium 3.9 Chloride 104 Carbon Dioxide 24 Anion Gap 12 BUN 21 H Creatinine 0.9 Creat Clearance w eGFR > 60 Random Glucose 73 L Calcium 8.7 Phosphorus 2.8 Magnesium 2.0 Microbiology 01/23/18 07:10 Wound-Other Gram Stain - Final 01/23/18 07:10 Wound-Other Wound Culture - Preliminary Escherichia Coli 01/20/18 15:30 Back Gram Stain - Final 01/20/18 15:30 Back Wound Culture - Final Mr S Aureus 01/20/18 09:50 Wound-Other Gram Stain - Final 01/20/18 09:50 Wound-Other Wound Culture - Final S Aureus 01/17/18 19:35 Abscess Gram Stain - Final 01/17/18 19:35 Abscess Wound Culture - Final Mr S Aureus 01/17/18 19:38 Tissue-Other Gram Stain - Final 01/17/18 19:38 Tissue-Other Tissue Culture - Final Staphylococcus Species 01/17/18 19:38 Tissue-Other Anaerobic Culture - Final 01/17/18 19:34 Abscess Gram Stain - Final 01/17/18 19:34 Abscess Wound Culture - Final S Aureus 01/15/18 09:00 Blood - Peripheral Venous Blood Culture - Final NO GROWTH AFTER 5 DAYS INCUBATION 01/15/18 06:30 Blood - Peripheral Venous Blood Culture - Final NO GROWTH AFTER 5 DAYS INCUBATION 01/12/18 23:40 Blood - Peripheral Venous Blood Culture - Final S Aureus 01/12/18 23:40 Blood - Peripheral Venous Blood Culture - Final S Aureus 01/10/18 19:00 Blood - Peripheral Venous Blood Culture - Final S Aureus 01/10/18 18:00 Blood - Peripheral Venous Blood Culture - Final S Aureus 01/10/18 15:00 Urine - Urine - Catheterized Urine Culture - Final Escherichia Coli Active Medications Acetaminophen (Tylenol -) 1,000 mg PO Q6H PRN PRN Reason: PAIN LEVEL 1 - 3 Last Admin: 01/27/18 02:36 Dose: 1,000 mg Amino Acids (Prosource No Carb Liquid Pkt) 30 ml PO BID@0800,1730 [facility] Last Admin: 01/27/18 09:35 Dose: 30 ml Benzocaine/Menthol (Cepacol Lozenge -) 1 each MM PRN PRN PRN Reason: SORE THROAT Budesonide/Formoterol Fumarate (Symbicort 160/4.5mcg -) 2 puff IH BID [facility] Last Admin: 01/27/18 09:37 Dose: 2 puff Chlorhexidine Gluconate (Hibiclens For Decolonization -) 1 applic TP [facility] Last Admin: 01/26/18 21:27 Dose: Not Given Docusate Sodium (Colace -) 300 mg PO [facility] Last Admin: 01/26/18 21:30 Dose: Not Given Haloperidol (Haldol Injection (Fast Acting) -) 5 mg IM Q4H PRN PRN Reason: AGITATION Last Admin: 01/25/18 21:23 Dose: 5 mg Daptomycin 650 mg/ Sodium (Chloride) 50 mls @ 100 mls/hr IVPB DAILY [facility]; Protocol Last Admin: 01/27/18 09:35 Dose: 100 mls/hr Piperacillin Sod/Tazobactam (Sod 4.5 gm/ Dextrose) 100 mls @ 200 mls/hr IVPB Q8H-IV [facility]; Protocol Last Admin: 01/27/18 09:36 Dose: 200 mls/hr Nystatin (Mycostatin Cream -) 1 applic TP BID [facility] Last Admin: 01/27/18 09:38 Dose: 1 applic Ondansetron HCl (Zofran Injection) 4 mg IVPUSH Q6H PRN PRN Reason: NAUSEA AND/OR VOMITING Pantoprazole Sodium (Protonix -) 40 mg PO DAILY [facility] Last Admin: 01/27/18 09:36 Dose: 40 mg Polyethylene Glycol (Miralax (For Daily Use) -) 17 gm PO BID [facility] Last Admin: 01/27/18 09:36 Dose: Not Given Rifampin (Rifadin -) 300 mg PO BID [facility] Last Admin: 01/27/18 09:36 Dose: 300 mg Senna (Senna -) 2 tab PO [facility] Last Admin: 01/26/18 21:29 Dose: Not Given Trazodone HCl (Desyrel -) 150 mg PO HS [facility] Last Admin: 01/26/18 21:27 Dose: 150 mg IMAGING: - Fluoroscopy: Multiple spot radiographs of the lumbar spine obtained in the OR during a posterior fusion procedure are submitted. - CXR (01/04): There is no evidence of vascular congestive changes, pneumonia, pneumothorax, or large pleural effusion. - CXR (01/10): Since the prior study of 01/04/2018 at 1106 hours, there is new atelectasis or infiltrate at the left base. The remainder the study is unchanged. - US Abdomen: Mild hepatomegaly. Moderately distended gallbladder without evidence of cholelithiasis or acute pathology. AAA with stenting. - Echo: LVEF 60-65%, No regional wall motion abnormalities, Trace Pulmonic valve regurg, No pericardial effusion ASSESSMENT/PLAN: 82 y/o M w/ PMHx COPD, chronic urinary retention, aortic aneurysm admitted to ICU s/p lumbar Sx complicated by MRSA infection of hardware, bacteremia, UTI PNA 1. Sepsis -Secondary to UTI, PNA, and Surgical Wound Infection with MRSA -Temp over night reached 100.5, No new bcx sent as patient was just cultured on 01/26 morning -No Leukocytosis -UA (: 211 WBC, 3+ LE -CXR (01/10): New atelectasis or infiltrate at the left base -Echo noted above -S/P incision, drainage, washout of deep thoracic and lumbar spine (01/17) and washout of an infected thoracic/lumber spinal incision S/P posterior fusion with wound vac placement (01/20) -Blood and Urine Cx noted above -Wound Cx: MRSA -ID Consulted, Appreciate rec's -Continue Daptomycin, Rifampin (Started on 01/23) -Pain control with Roxicodone and Morphine -Tylenol 1,000 mg PO Q6H for fever 2. Lumbar Spinal Stenosis with Lumbar compression fx and kyphosis -s/p T12-L4 laminectomies, T9-pelvis posterior instrumentation, T9-S1 posterolateral arthrodesis (01/03) -s/p posterior fusion with wound vac placement (01/20) -POD#3 s/p thoracolumbar wound debridement with lavage and complex closure -Spoke with Dr. Roberts personally who said he will see patient, will follow his rec's -Physical therapy requested, Max distance traveled 3ft 3. COPD exacerbation -resolved -Continue Symbicort, Duonebs, Oxygen, Chest PT -Pulmonology consulted: inhaled bronchodilators standing and PRN, incentive spirometry, keep SpO2 >90% 4. Normocytic Anemia -Hgb holding at 8.3 this am -Continue to hold IVF -s/p 3 pRBC units transfused 5. Chronic urinary retention -Patient self-caths at home -Holder catheter present at this time 6. Constipation -Likely due to Opiate use s/p spinal surgery -Continue colace, senna, and miralax 7. FEN -PO Fluids -Lytes wnl -Regular diet 8. PPx -DVT: SCDs -GI: Protonix, Senna/colace, Miralax Visit type - Emergency Visit Emergency Visit: Yes ED Registration Date: 01/03/18 Care time: The patient presented to the Emergency Department on the above date and was hospitalized for further evaluation of their emergent condition. - New Patient This patient is new to me today: No - Critical Care Critical Care patient: No
[2018-01-27] MEDS ORDERED: HALOPERIDOL LACTATE 5 MG/ML IM PRN (14:31)
[2018-01-27] MEDS ORDERED: ONDANSETRON 4 MG/2 ML VIAL IVPUSH PRN (14:31)
[2018-01-27] MEDS ORDERED: BENZOCAINE/MENTH/CETYLPYRD CL 1 EACH LOZENGE MM PRN (14:31)
--- NOTE | 2018-01-27 19:13 | PN ---
Progress Note (short form) - Note Progress Note: Patient much improved Did stand and sit Is eating Orientated Vitals All stable N euro at baseline. Dressing taken down Mid thoracic eschar Drain removed Wound dry with no erythema. No cellulitis No sign of infection e coli in the wound on appropriate antibiotics IV Abd Soft PLAN Wound care Continue antibiotics PT Mobilize and strengthen May require a wound debridement of skin edges.
[2018-01-27] MEDS: traZODone HCL 50 MG TABLET (FP) PO SCH (22:17)
[2018-01-27] MEDS: DOCUSATE SODIUM 100 MG CAPSULE (FP) PO SCH ×2 (22:17→22:26)
[2018-01-27] MEDS: SENNOSIDES 8.6MG TABLET (FP) PO SCH ×2 (22:17→22:27)
[2018-01-28] MEDS ORDERED: DEXTROSE 5%-WATER 100 ML IVPB ONE ×3 (02:11→17:26)
[2018-01-28] MEDS ORDERED: PIPERACILLIN/TAZOBACTAM 4.5 GM VIAL IVPB ONE ×3 (02:11→17:26)
[2018-01-28] MEDS: PIPERACILLIN/TAZOB 4.5 GM 4.5 GM in DEXTROSE 5%-WATER 100 ML IVPB SCH ×3 (02:37→17:36)
[2018-01-28 07:58] LABS: BASO % 0.6 % (0-2.0); EOS % 4.6 % (0-4.5); HEMATOCRIT 26.4 % (35.4-49); HEMOGLOBIN 8.5 GM/dL (11.7-16.9); LYMPH % 16.7 % (8-40); MCH 27.8 pg (25.7-33.7); MCHC 32.1 g/dl (32.0-35.9); MEAN CELL VOLUME 86.6 fl (80-96); MEAN PLT VOLUME 7.7 fl (7.5-11.1); MONO % 8.5 % (3.8-10.2); NEUT % 69.6 % (42.8-82.8); PLATELET COUNT 249 K/MM3 (134-434); RBC 3.04 M/mm3 (4.00-5.60); RDW 14.4 % (11.9-15.9); WHITE BLOOD COUNT 7.7 K/mm3 (4.0-10.0)
[2018-01-28 08:39] LABS: ANION GAP 8 MMOL/L (8-16); BLOOD UREA NITROGEN 18 mg/dL (7-18); CALCIUM 8.1 mg/dL (8.5-10.1); CHLORIDE 104 mmol/L (98-107); CO2 27 mmol/L (21-32); CREATININE 0.9 mg/dL (0.55-1.3); GLUCOSE,RANDOM 72 mg/dL (74-106); PHOSPHOROUS 3.2 mg/dL (2.5-4.9); POTASSIUM 3.4 mmol/L (3.5-5.1); SODIUM 138 mmol/L (136-145)
[2018-01-28] MEDS ORDERED: PT OWN MED DRAWER 7, Y5N ONE (10:16)
[2018-01-28] MEDS: RIFAMPIN 300 MG CAPSULE PO SCH ×2 (10:22→22:42)
[2018-01-28] MEDS: PANTOPRAZOLE 40 MG TABLET (FP) PO SCH (10:22)
[2018-01-28] MEDS: AMINO ACIDS/PROTEIN HYDROLYS 30 ML LIQUID.PKT PO SCH ×2 (10:22→17:36)
[2018-01-28] MEDS: BUDESONIDE/FORMETEROL FUMARATE 160/4.5 mcg INHALER IH SCH ×2 (10:22→22:45)
[2018-01-28] MEDS: POLYETHYLENE GLYCOL 3350 119 GM BTL PO SCH ×2 (10:23→22:41)
[2018-01-28] MEDS: NYSTATIN 100,000 UNIT/GM TOPICAL CREAM 15 GM TUBE TP SCH ×2 (10:24→22:45)
--- NOTE | 2018-01-28 11:05 | PN ---
Progress Note (short form) - Note Progress Note: PULMONARY Denies shortness of breath or chest pain. No fevers recorded. Last blood cultures negative to date. Vital Signs Period Temp Pulse Resp BP Sys/Hyman Pulse Ox Last 24 Hr 98.2 F-99.3 F 77-88 18-20 121-144/53-78 98 Gen: NAD at rest Heart: RRR Lung: scattered rhonchi Abd: soft, nontender Ext: no edema CBC, BMP 01/28/18 07:03 01/28/18 07:03 Active Medications Acetaminophen (Tylenol -) 1,000 mg PO Q6H PRN PRN Reason: PAIN LEVEL 1 - 3 Last Admin: 01/27/18 17:11 Dose: 1,000 mg Amino Acids (Prosource No Carb Liquid Pkt) 30 ml PO BID@0800,1730 [facility] Last Admin: 01/28/18 10:22 Dose: 30 ml Benzocaine/Menthol (Cepacol Lozenge -) 1 each MM PRN PRN PRN Reason: SORE THROAT Budesonide/Formoterol Fumarate (Symbicort 160/4.5mcg -) 2 puff IH BID [facility] Last Admin: 01/28/18 10:22 Dose: 2 puff Docusate Sodium (Colace -) 300 mg PO HS [facility] Last Admin: 01/27/18 22:26 Dose: Not Given Haloperidol (Haldol Injection (Fast Acting) -) 5 mg IM Q4H PRN PRN Reason: AGITATION Daptomycin 650 mg/ Sodium (Chloride) 50 mls @ 100 mls/hr IVPB DAILY [facility]; Protocol Last Admin: 01/27/18 09:35 Dose: 100 mls/hr Piperacillin Sod/Tazobactam (Sod 4.5 gm/ Dextrose) 100 mls @ 200 mls/hr IVPB Q8H-IV [facility]; Protocol Last Admin: 01/28/18 10:22 Dose: 200 mls/hr Nystatin (Mycostatin Cream -) 1 applic TP BID [facility] Last Admin: 01/28/18 10:24 Dose: 1 applic Ondansetron HCl (Zofran Injection) 4 mg IVPUSH Q6H PRN PRN Reason: NAUSEA AND/OR VOMITING Pantoprazole Sodium (Protonix -) 40 mg PO DAILY [facility] Last Admin: 01/28/18 10:22 Dose: 40 mg Polyethylene Glycol (Miralax (For Daily Use) -) 17 gm PO BID [facility] Last Admin: 01/28/18 10:23 Dose: Not Given Rifampin (Rifadin -) 300 mg PO BID [facility] Last Admin: 01/28/18 10:22 Dose: 300 mg Senna (Senna -) 2 tab PO [facility] Last Admin: 01/27/18 22:27 Dose: Not Given Trazodone HCl (Desyrel -) 150 mg PO [facility] Last Admin: 01/27/18 22:17 Dose: 150 mg A/P Lumbar Compression Fractures s/p T12-L4 Laminectomies/T9-pelvis instrumentation/T9-S1 posterior lateral arthrodesis Acute COPD Exacerbation improved Chronic Hypoxic Respiratory Failure Pneumonia Back Wound Infection MRSA Bacteremia Anemia - continue antibiotics per ID - f/u pending cultures - inhaled bronchodilators standing and PRN - pain control - incentive spirometry - O2 to keep SpO2 >90% - PO as tolerated - bowel regimen - rehab/PT - DVT prophylaxis
[2018-01-28] MEDS: DAPTOMYCIN 650 MG in SODIUM CHLORIDE 50 ML IVPB SCH (11:47)
[2018-01-28] MEDS: ACETAMINOPHEN 500 MG TABLET (FP) PO PRN (13:14)
--- NOTE | 2018-01-28 14:09 | PN ---
Progress Note (short form) - Note Progress Note: Patient is comfortable, daughter at bedside. Vital Signs Temperature 99.1 F 01/28/18 10:00 Pulse Rate 86 01/28/18 10:00 Respiratory Rate 18 01/28/18 10:00 Blood Pressure 121/53 L 01/28/18 10:00 O2 Sat by Pulse Oximetry (%) 98 01/27/18 21:00 Gen: lying in bed with no acute distress HEART: S1S2, RRR ABDOMEN: Soft, non-tender, non-distended, normal BS EXTREMITIES: No edema Neuro and back exam as per ortho. Sodium 138 mmol/L (136-145) 01/28/18 07:03 Potassium 3.4 mmol/L (3.5-5.1) L 01/28/18 07:03 Chloride 104 mmol/L (98-107) 01/28/18 07:03 Carbon Dioxide 27 mmol/L (21-32) 01/28/18 07:03 Anion Gap 8 MMOL/L (8-16) 01/28/18 07:03 BUN 18 mg/dL (7-18) 01/28/18 07:03 Creatinine 0.9 mg/dL (0.55-1.3) 01/28/18 07:03 Creat Clearance w eGFR > 60 (>60) 01/28/18 07:03 Random Glucose 72 mg/dL (74-106) L 01/28/18 07:03 Lactic Acid 0.7 mmol/L (0.0-2.0) 01/10/18 16:25 Calcium 8.1 mg/dL (8.5-10.1) L 01/28/18 07:03 Phosphorus 3.2 mg/dL (2.5-4.9) 01/28/18 07:03 Magnesium 2.0 mg/dL (1.8-2.4) 01/28/18 07:03 Total Bilirubin 0.5 mg/dL (0.2-1) 01/26/18 06:24 AST 12 U/L (15-37) L 01/26/18 06:24 ALT 22 U/L (13-61) 01/26/18 06:24 Alkaline Phosphatase 111 U/L (45-117) 01/26/18 06:24 Creatine Kinase 40 IU/L (26-308) 01/24/18 05:30 C-Reactive Protein 6.1 MG/DL (0.00-0.3) H 01/24/18 05:30 Total Protein 5.0 g/dl (6.4-8.2) L 01/26/18 06:24 Albumin 1.9 g/dl (3.4-5.0) L 01/26/18 06:24 Current Medications Generic Name Dose Route Start Last Admin Trade Name Freq PRN Reason Stop Dose Admin Acetaminophen 1,000 mg 01/27/18 14:31 01/28/18 13:14 Tylenol - PO 1,000 mg Q6H PRN Administration PAIN LEVEL 1 - 3 Amino Acids 30 ml 01/27/18 17:30 01/28/18 10:22 Prosource No Carb Liquid Pkt PO 30 ml BID@0800,1730 [facility] Administration Benzocaine/Menthol 1 each 01/27/18 14:31 Cepacol Lozenge - MM PRN PRN SORE THROAT Budesonide/Formoterol Fumarate 2 puff 01/27/18 22:00 01/28/18 10:22 Symbicort 160/4.5mcg - IH 2 puff BID [facility] Administration Docusate Sodium 300 mg 01/27/18 22:00 01/27/18 22:26 Colace - PO Not Given HS [facility] Haloperidol 5 mg 01/27/18 14:31 Haldol Injection (Fast Acting) - IM Q4H PRN AGITATION Daptomycin 650 mg/ Sodium 50 mls @ 100 mls/hr 01/23/18 13:45 01/28/18 11:47 Chloride IVPB 100 mls/hr DAILY [facility] Administration Protocol Piperacillin Sod/Tazobactam 100 mls @ 200 mls/hr 01/26/18 21:15 01/28/18 10: 22 Sod 4.5 gm/ Dextrose IVPB 200 mls/hr Q8H-IV [facility] Administration Protocol Nystatin 1 applic 01/27/18 22:00 01/28/18 10:24 Mycostatin Cream - TP 1 applic BID [facility] Administration Ondansetron HCl 4 mg 01/27/18 14:31 Zofran Injection IVPUSH Q6H PRN NAUSEA AND/OR VOMITING Pantoprazole Sodium 40 mg 01/28/18 10:00 01/28/18 10:22 Protonix - PO 40 mg DAILY [facility] Administration Polyethylene Glycol 17 gm 01/27/18 22:00 01/28/18 10:23 Miralax (For Daily Use) - PO Not Given BID [facility] Rifampin 300 mg 01/23/18 10:00 01/28/18 10:22 Rifadin - PO 300 mg BID [facility] Administration Senna 2 tab 01/27/18 22:00 01/27/18 22:27 Senna - PO Not Given HS [facility] Trazodone HCl 150 mg 01/27/18 22:00 01/27/18 22:17 Desyrel - PO 150 mg HS [facility] Administration Home Medications Medication Instructions Recorded Albuterol 2.5/Ipratropium 0.5 1 amp NEB TID 12/14/17 [Duoneb -] Cholecalciferol (Vitamin D3) 800 unit PO DAILY 12/14/17 [Vitamin D -] Furosemide [Lasix -] 20 mg PO PRN PRN 12/14/17 Gabapentin [Neurontin] 300 mg PO BID 12/14/17 Mometasone/Formoterol [Dulera 200 2 inh IH BID 12/14/17 Mcg/5 Mcg Inhaler] Omeprazole 40 mg PO DAILY 12/14/17 Polyethylene Glycol 3350 [Clearlax] 17 gm PO DAILY 12/14/17 Prednisone 5 mg PO DAILY 12/14/17 Trazodone HCl 150 mg PO DAILY 12/14/17 Aspirin [ASA -] 81 mg PO DAILY 01/03/18 Albuterol Sulfate 0.5% [Ventolin 2.5 01/26/18 0.5% Nebulizing Soln. -] Ipratropium 0.02% Nebulizer 1 amp NEB QID 01/26/18 [Atrovent 0.02% Nebulizer -] Microbiology 01/27/18 06:30 Blood - Peripheral Venous Blood Culture - Preliminary NO GROWTH OBTAINED AFTER 24 HOURS, INCUBATION TO CONTINUE FOR 4 DAYS. 01/27/18 06:00 Blood - Peripheral Venous Blood Culture - Preliminary NO GROWTH OBTAINED AFTER 24 HOURS, INCUBATION TO CONTINUE FOR 4 DAYS. 01/23/18 07:10 Wound-Other Gram Stain - Final 01/23/18 07:10 Wound-Other Wound Culture - Final Escherichia Coli 01/20/18 15:30 Back Gram Stain - Final 01/20/18 15:30 Back Wound Culture - Final Mr S Aureus 01/20/18 09:50 Wound-Other Gram Stain - Final 01/20/18 09:50 Wound-Other Wound Culture - Final Mr S Aureus 01/17/18 19:35 Abscess Gram Stain - Final 01/17/18 19:35 Abscess Wound Culture - Final Mr S Aureus 01/17/18 19:38 Tissue-Other Gram Stain - Final 01/17/18 19:38 Tissue-Other Tissue Culture - Final Staphylococcus Species 01/17/18 19:38 Tissue-Other Anaerobic Culture - Final 01/17/18 19:34 Abscess Gram Stain - Final 01/17/18 19:34 Abscess Wound Culture - Final Mr S Aureus 01/15/18 09:00 Blood - Peripheral Venous Blood Culture - Final NO GROWTH AFTER 5 DAYS INCUBATION 01/15/18 06:30 Blood - Peripheral Venous Blood Culture - Final NO GROWTH AFTER 5 DAYS INCUBATION 01/12/18 23:40 Blood - Peripheral Venous Blood Culture - Final Mr S Aureus 01/12/18 23:40 Blood - Peripheral Venous Blood Culture - Final Mr S Aureus 01/10/18 19:00 Blood - Peripheral Venous Blood Culture - Final Mr S Aureus 01/10/18 18:00 Blood - Peripheral Venous Blood Culture - Final Mr S Aureus 01/10/18 15:00 Urine - Urine - Catheterized Urine Culture - Final Escherichia Coli Echo shows normal LV, normal LV systolic function, LVEF 60-65%, E/A reversal, normal RV systolic function, trace ME. ASSESSMENT AND PLAN: This is an 82 year old man a history of COPD, chronic urinary retention, lumbar compression fractures with spinal stenosis who was admitted for lumbar spine surgery. # POD# 21 (01/03/2018) s/p T12-L4 laminectomies. 2. T9-pelvis posterior instrumentation. 3. T9-S1 paramedic supervisor-lateral arthrodesis. 4. Autograft. 5. Allograft. 6. Bone marrow aspirate. patient had 3 wash outs by the surgeon. Dressing is changed By # s/p sepsis secondary surgical wound infection with MRSA Bacteremia s/p incision & drainage, washout of deep thoracic and lumbar spine 01/17, s/p washout and application of wound VAC 01/20, s/p washout and closure of wound growing Wound Culture - Escherichia Coli ,started on Zosyn a sper ID, continue Daptomycin, Rifampin. Blb Cx 01/10, 01/12, growing MRSA, on 01/15 Blood cultures negative after 5 days. Continue antibiotics x 6-8 weeks followed by lifelong suppressive therapy with Bactrim. # E. coli UTI on IV Zosyn continue #Acute exacerbation of COPD Improved, Continue Symbicort, DuoNeb, oxygen , completed Prednisone on 01/17, Patient was steroid-dependent at home # Chronic hypoxic respiratory failure keep Sa02 above >90% # Anemia s/p transfusion 3 units ,keep above > 8.0 # Chronic urinary retention , Patient does self-catheterization at home, Has Reyes catheter # Constipation continue Colace, Senna, Miralax DVT Px: SCds Visit type - Emergency Visit Emergency Visit: Yes ED Registration Date: 01/03/18 Care time: The patient presented to the Emergency Department on the above date and was hospitalized for further evaluation of their emergent condition. - New Patient This patient is new to me today: No - Critical Care Critical Care patient: No - Discharge Referral Referred to [facility] Med P.C.: No
[2018-01-28] MEDS: traZODone HCL 50 MG TABLET (FP) PO SCH (22:40)
[2018-01-28] MEDS: DOCUSATE SODIUM 100 MG CAPSULE (FP) PO SCH (22:40)
[2018-01-28] MEDS: SENNOSIDES 8.6MG TABLET (FP) PO SCH (22:41)
[2018-01-29] MEDS ORDERED: PIPERACILLIN/TAZOBACTAM 4.5 GM VIAL IVPB ONE ×3 (01:41→17:14)
[2018-01-29] MEDS ORDERED: DEXTROSE 5%-WATER 100 ML IVPB ONE ×3 (01:42→17:14)
[2018-01-29] MEDS: PIPERACILLIN/TAZOB 4.5 GM 4.5 GM in DEXTROSE 5%-WATER 100 ML IVPB SCH ×3 (01:53→17:50)
[2018-01-29] MEDS: PANTOPRAZOLE 40 MG TABLET (FP) PO SCH (10:21)
[2018-01-29] MEDS: AMINO ACIDS/PROTEIN HYDROLYS 30 ML LIQUID.PKT PO SCH ×2 (10:21→17:50)
[2018-01-29] MEDS: RIFAMPIN 300 MG CAPSULE PO SCH ×2 (10:21→23:11)
[2018-01-29] MEDS: NYSTATIN 100,000 UNIT/GM TOPICAL CREAM 15 GM TUBE TP SCH ×2 (10:22→23:11)
[2018-01-29] MEDS: BUDESONIDE/FORMETEROL FUMARATE 160/4.5 mcg INHALER IH SCH ×2 (10:22→23:12)
[2018-01-29] MEDS: POLYETHYLENE GLYCOL 3350 119 GM BTL PO SCH ×2 (10:23→23:09)
[2018-01-29] MEDS ORDERED: ALBUTEROL SO4 0.083% IH SOL 2.5 MG/3 ML VIAL.NEB. NEB PRN (11:58)
[2018-01-29] MEDS: DAPTOMYCIN 650 MG in SODIUM CHLORIDE 50 ML IVPB SCH (12:13)
--- NOTE | 2018-01-29 13:11 | PN ---
Progress Note (short form) - Note Progress Note: PULMONARY Denies shortness of breath or chest pain. No fevers recorded. Vital Signs Period Temp Pulse Resp BP Sys/Hyman Pulse Ox Last 24 Hr 99.4 F-99.5 F 83-84 16-18 122-157/52-77 99 Gen: NAD at rest Heart: RRR Lung: scattered rhonchi Abd: soft, nontender Ext: no edema CBC, BMP 01/28/18 07:03 01/28/18 07:03 Active Medications Acetaminophen (Tylenol -) 1,000 mg PO Q6H PRN PRN Reason: PAIN LEVEL 1 - 3 Last Admin: 01/28/18 13:14 Dose: 1,000 mg Albuterol Sulfate (Ventolin 0.083% Nebulizer Soln -) 1 amp NEB Q4H PRN PRN Reason: SHORT OF BREATH/WHEEZING Albuterol/Ipratropium (Duoneb -) 1 amp NEB RTID [facility] Amino Acids (Prosource No Carb Liquid Pkt) 30 ml PO BID@0800,1730 [facility] Last Admin: 01/29/18 10:21 Dose: 30 ml Benzocaine/Menthol (Cepacol Lozenge -) 1 each MM PRN PRN PRN Reason: SORE THROAT Budesonide/Formoterol Fumarate (Symbicort 160/4.5mcg -) 2 puff IH BID [facility] Last Admin: 01/29/18 10:22 Dose: 2 puff Docusate Sodium (Colace -) 300 mg PO HS [facility] Last Admin: 01/28/18 22:40 Dose: 300 mg Haloperidol (Haldol Injection (Fast Acting) -) 5 mg IM Q4H PRN PRN Reason: AGITATION Daptomycin 650 mg/ Sodium (Chloride) 50 mls @ 100 mls/hr IVPB DAILY [facility]; Protocol Last Admin: 01/29/18 12:13 Dose: 100 mls/hr Piperacillin Sod/Tazobactam (Sod 4.5 gm/ Dextrose) 100 mls @ 200 mls/hr IVPB Q8H-IV [facility]; Protocol Last Admin: 01/29/18 10:21 Dose: 200 mls/hr Nystatin (Mycostatin Cream -) 1 applic TP BID [facility] Last Admin: 01/29/18 10:22 Dose: 1 applic Ondansetron HCl (Zofran Injection) 4 mg IVPUSH Q6H PRN PRN Reason: NAUSEA AND/OR VOMITING Pantoprazole Sodium (Protonix -) 40 mg PO DAILY [facility] Last Admin: 01/29/18 10:21 Dose: 40 mg Polyethylene Glycol (Miralax (For Daily Use) -) 17 gm PO BID [facility] Last Admin: 01/29/18 10:23 Dose: 17 grams Rifampin (Rifadin -) 300 mg PO BID [facility] Last Admin: 01/29/18 10:21 Dose: 300 mg Senna (Senna -) 2 tab PO [facility] Last Admin: 01/28/18 22:41 Dose: 2 tab Trazodone HCl (Desyrel -) 150 mg PO [facility] Last Admin: 01/28/18 22:40 Dose: 150 mg A/P Lumbar Compression Fractures s/p T12-L4 Laminectomies/T9-pelvis instrumentation/T9-S1 posterior lateral arthrodesis Acute COPD Exacerbation improved Chronic Hypoxic Respiratory Failure Pneumonia Back Wound Infection MRSA Bacteremia Anemia - continue antibiotics per ID - f/u pending cultures - inhaled bronchodilators standing and PRN - pain control - incentive spirometry - O2 to keep SpO2 >90% - PO as tolerated - bowel regimen - rehab/PT - DVT prophylaxis
[2018-01-29] MEDS: ALBUTEROL SO4 2.5/IPRATROPIUM 0.5 INH SOL 3 ML VIAL.NEB. NEB SCH ×2 (14:00→20:38)
--- NOTE | 2018-01-29 17:24 | PN ---
Progress Note (short form) - Note Progress Note: No new changes. comfortable. Vital Signs Temperature 98.9 F 01/29/18 15:09 Pulse Rate 88 01/29/18 15:09 Respiratory Rate 16 01/29/18 15:09 Blood Pressure 141/60 01/29/18 15:09 O2 Sat by Pulse Oximetry (%) 99 01/29/18 09:45 Gen: lying in bed with no acute distress HEART: S1S2, RRR ABDOMEN: Soft, non-tender, non-distended, normal BS EXTREMITIES: No edema Neuro and back exam as per ortho. CBCD WBC 7.7 K/mm3 (4.0-10.0) 01/28/18 07:03 RBC 3.04 M/mm3 (4.00-5.60) L 01/28/18 07:03 Hgb 8.5 GM/dL (11.7-16.9) L 01/28/18 07:03 Hct 26.4 % (35.4-49) L 01/28/18 07:03 MCV 86.6 fl (80-96) 01/28/18 07:03 MCHC 32.1 g/dl (32.0-35.9) 01/28/18 07:03 RDW 14.4 % (11.9-15.9) 01/28/18 07:03 Plt Count 249 K/MM3 (134-434) 01/28/18 07:03 MPV 7.7 fl (7.5-11.1) 01/28/18 07:03 CMP Sodium 138 mmol/L (136-145) 01/28/18 07:03 Potassium 3.4 mmol/L (3.5-5.1) L 01/28/18 07:03 Chloride 104 mmol/L (98-107) 01/28/18 07:03 Carbon Dioxide 27 mmol/L (21-32) 01/28/18 07:03 Anion Gap 8 MMOL/L (8-16) 01/28/18 07:03 BUN 18 mg/dL (7-18) 01/28/18 07:03 Creatinine 0.9 mg/dL (0.55-1.3) 01/28/18 07:03 Creat Clearance w eGFR > 60 (>60) 01/28/18 07:03 Random Glucose 72 mg/dL (74-106) L 01/28/18 07:03 Calcium 8.1 mg/dL (8.5-10.1) L 01/28/18 07:03 Total Bilirubin 0.5 mg/dL (0.2-1) 01/26/18 06:24 AST 12 U/L (15-37) L 01/26/18 06:24 ALT 22 U/L (13-61) 01/26/18 06:24 Alkaline Phosphatase 111 U/L (45-117) 01/26/18 06:24 Total Protein 5.0 g/dl (6.4-8.2) L 01/26/18 06:24 Albumin 1.9 g/dl (3.4-5.0) L 01/26/18 06:24 CARDIAC ENZYMES Creatine Kinase 40 IU/L (26-308) 01/24/18 05:30 Current Medications Generic Name Dose Route Start Last Admin Trade Name Freq PRN Reason Stop Dose Admin Acetaminophen 1,000 mg 01/27/18 14:31 01/28/18 13:14 Tylenol - PO 1,000 mg Q6H PRN Administration PAIN LEVEL 1 - 3 Albuterol Sulfate 1 amp 01/29/18 11:58 Ventolin 0.083% Nebulizer Soln - NEB Q4H PRN SHORT OF BREATH/WHEEZING Albuterol/Ipratropium 1 amp 01/29/18 14:00 01/29/18 14:00 Duoneb - NEB 1 amp RTID SABINA Administration Amino Acids 30 ml 01/27/18 17:30 01/29/18 10:21 Prosource No Carb Liquid Pkt PO 30 ml BID@0800,1730 SABINA Administration Benzocaine/Menthol 1 each 01/27/18 14:31 Cepacol Lozenge - MM PRN PRN SORE THROAT Budesonide/Formoterol Fumarate 2 puff 01/27/18 22:00 01/29/18 10:22 Symbicort 160/4.5mcg - IH 2 puff BID SABINA Administration Docusate Sodium 300 mg 01/27/18 22:00 01/28/18 22:40 Colace - PO 300 mg HS SABINA Administration Haloperidol 5 mg 01/27/18 14:31 Haldol Injection (Fast Acting) - IM Q4H PRN AGITATION Daptomycin 650 mg/ Sodium 50 mls @ 100 mls/hr 01/23/18 13:45 01/29/18 12:13 Chloride IVPB 100 mls/hr DAILY SABINA Administration Protocol Piperacillin Sod/Tazobactam 100 mls @ 200 mls/hr 01/26/18 21:15 01/29/18 10: 21 Sod 4.5 gm/ Dextrose IVPB 200 mls/hr Q8H-IV SABINA Administration Protocol Nystatin 1 applic 01/27/18 22:00 01/29/18 10:22 Mycostatin Cream - TP 1 applic BID SABINA Administration Ondansetron HCl 4 mg 01/27/18 14:31 Zofran Injection IVPUSH Q6H PRN NAUSEA AND/OR VOMITING Pantoprazole Sodium 40 mg 01/28/18 10:00 01/29/18 10:21 Protonix - PO 40 mg DAILY SABINA Administration Polyethylene Glycol 17 gm 01/27/18 22:00 01/29/18 10:23 Miralax (For Daily Use) - PO 17 grams BID SABINA Administration Rifampin 300 mg 01/23/18 10:00 01/29/18 10:21 Rifadin - PO 300 mg BID SABINA Administration Senna 2 tab 01/27/18 22:00 01/28/18 22:41 Senna - PO 2 tab HS SABINA Administration Trazodone HCl 150 mg 01/27/18 22:00 01/28/18 22:40 Desyrel - PO 150 mg HS SABINA Administration Home Medications Medication Instructions Recorded Albuterol 2.5/Ipratropium 0.5 1 amp NEB TID 12/14/17 [Duoneb -] Cholecalciferol (Vitamin D3) 800 unit PO DAILY 12/14/17 [Vitamin D -] Furosemide [Lasix -] 20 mg PO PRN PRN 12/14/17 Gabapentin [Neurontin] 300 mg PO BID 12/14/17 Mometasone/Formoterol [Dulera 200 2 inh IH BID 12/14/17 Mcg/5 Mcg Inhaler] Omeprazole 40 mg PO DAILY 12/14/17 Polyethylene Glycol 3350 [Clearlax] 17 gm PO DAILY 12/14/17 Prednisone 5 mg PO DAILY 12/14/17 Trazodone HCl 150 mg PO DAILY 12/14/17 Aspirin [ASA -] 81 mg PO DAILY 01/03/18 Albuterol Sulfate 0.5% [Ventolin 2.5 01/26/18 0.5% Nebulizing Soln. -] Ipratropium 0.02% Nebulizer 1 amp NEB QID 01/26/18 [Atrovent 0.02% Nebulizer -] Microbiology 01/27/18 06:30 Blood - Peripheral Venous Blood Culture - Preliminary NO GROWTH OBTAINED AFTER 48 HOURS, INCUBATION TO CONTINUE FOR 3 DAYS. 01/27/18 06:00 Blood - Peripheral Venous Blood Culture - Preliminary NO GROWTH OBTAINED AFTER 48 HOURS, INCUBATION TO CONTINUE FOR 3 DAYS. 01/23/18 07:10 Wound-Other Gram Stain - Final 01/23/18 07:10 Wound-Other Wound Culture - Final Escherichia Coli 01/20/18 15:30 Back Gram Stain - Final 01/20/18 15:30 Back Wound Culture - Final Mr S Aureus 01/20/18 09:50 Wound-Other Gram Stain - Final 01/20/18 09:50 Wound-Other Wound Culture - Final Mr S Aureus 01/17/18 19:35 Abscess Gram Stain - Final 01/17/18 19:35 Abscess Wound Culture - Final Mr S Aureus 01/17/18 19:38 Tissue-Other Gram Stain - Final 01/17/18 19:38 Tissue-Other Tissue Culture - Final Staphylococcus Species 01/17/18 19:38 Tissue-Other Anaerobic Culture - Final 01/17/18 19:34 Abscess Gram Stain - Final 01/17/18 19:34 Abscess Wound Culture - Final Mr S Aureus 01/15/18 09:00 Blood - Peripheral Venous Blood Culture - Final NO GROWTH AFTER 5 DAYS INCUBATION 01/15/18 06:30 Blood - Peripheral Venous Blood Culture - Final NO GROWTH AFTER 5 DAYS INCUBATION 01/12/18 23:40 Blood - Peripheral Venous Blood Culture - Final Mr S Aureus 01/12/18 23:40 Blood - Peripheral Venous Blood Culture - Final Mr S Aureus 01/10/18 19:00 Blood - Peripheral Venous Blood Culture - Final Mr S Aureus 01/10/18 18:00 Blood - Peripheral Venous Blood Culture - Final Mr S Aureus 01/10/18 15:00 Urine - Urine - Catheterized Urine Culture - Final Escherichia Coli Echo shows normal LV, normal LV systolic function, LVEF 60-65%, E/A reversal, normal RV systolic function, trace AR. ASSESSMENT AND PLAN: This is an 82 year old man a history of COPD, chronic urinary retention, lumbar compression fractures with spinal stenosis who was admitted for lumbar spine surgery. # POD# 22 (01/03/2018) s/p T12-L4 laminectomies. 2. T9-pelvis posterior instrumentation. 3. 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 4. Autograft. 5. Allograft. 6. Bone marrow aspirate. patient had 3 wash outs by the surgeon. Dressing is changed By # s/p sepsis secondary surgical wound infection with MRSA Bacteremia s/p incision & drainage, washout of deep thoracic and lumbar spine 01/17, s/p washout and application of wound VAC 01/20, s/p washout and closure of wound growing Wound Culture - Escherichia Coli ,started on Zosyn a sper ID, continue Daptomycin, Rifampin. Blb Cx 01/10, 01/12, growing MRSA, on 01/15 Blood cultures negative after 5 days. Continue antibiotics x 6-8 weeks followed by lifelong suppressive therapy with Bactrim. # E. coli UTI on IV Zosyn continue #Acute exacerbation of COPD Improved, Continue Symbicort, DuoNeb, oxygen , completed Prednisone on 01/17, Patient was steroid-dependent at home # Chronic hypoxic respiratory failure keep Sa02 above >90% # Anemia s/p transfusion 3 units ,keep above > 8.0 # Chronic urinary retention , Patient does self-catheterization at home, Has Reyes catheter # Constipation continue Colace, Senna, Miralax DVT Px: SCds Visit type - Emergency Visit Emergency Visit: Yes ED Registration Date: 01/03/18 Care time: The patient presented to the Emergency Department on the above date and was hospitalized for further evaluation of their emergent condition. - New Patient This patient is new to me today: No - Critical Care Critical Care patient: No - Discharge Referral Referred to [facility] Med P.C.: No
[2018-01-29] MEDS ORDERED: PT OWN MED DRAWER 7, Y5N ONE (23:06)
[2018-01-29] MEDS: DOCUSATE SODIUM 100 MG CAPSULE (FP) PO SCH ×2 (23:10→23:17)
[2018-01-29] MEDS: SENNOSIDES 8.6MG TABLET (FP) PO SCH (23:10)
[2018-01-29] MEDS: ACETAMINOPHEN 500 MG TABLET (FP) PO PRN (23:10)
[2018-01-29] MEDS: traZODone HCL 50 MG TABLET (FP) PO SCH (23:11)
[2018-01-30] MEDS ORDERED: DEXTROSE 5%-WATER 100 ML IVPB ONE ×3 (01:29→16:59)
[2018-01-30] MEDS ORDERED: PIPERACILLIN/TAZOBACTAM 4.5 GM VIAL IVPB ONE ×2 (01:29→10:22)
[2018-01-30] MEDS: PIPERACILLIN/TAZOB 4.5 GM 4.5 GM in DEXTROSE 5%-WATER 100 ML IVPB SCH ×2 (01:36→10:26)
[2018-01-30] MEDS: ALBUTEROL SO4 2.5/IPRATROPIUM 0.5 INH SOL 3 ML VIAL.NEB. NEB SCH ×3 (07:40→20:01)
[2018-01-30] MEDS: AMINO ACIDS/PROTEIN HYDROLYS 30 ML LIQUID.PKT PO SCH ×2 (08:37→17:24)
[2018-01-30] MEDS ORDERED: PT OWN MED DRAWER 7, Y5N ONE (10:21)
[2018-01-30] MEDS: PANTOPRAZOLE 40 MG TABLET (FP) PO SCH (10:25)
[2018-01-30] MEDS: RIFAMPIN 300 MG CAPSULE PO SCH ×2 (10:26→21:12)
--- NOTE | 2018-01-30 10:26 | PN ---
Progress Note (short form) - Note Progress Note: Resting in NAD. No shortness of breath or chest pain. Intake & Output 01/27/18 01/28/18 01/29/18 01/30/18 23:59 23:59 23:59 23:59 Intake Total 550 250 790 100 Output Total 910 1400 800 300 Balance -360 -1150 -10 -200 Last Vital Signs Temp Pulse Resp BP Pulse Ox 98.7 F 77 20 149/67 99 01/30/18 06:00 01/30/18 06:00 01/30/18 06:00 01/30/18 06:00 01/29/18 09:45 Active Medications Acetaminophen (Tylenol -) 1,000 mg PO Q6H PRN PRN Reason: PAIN LEVEL 1 - 3 Last Admin: 01/29/18 23:10 Dose: 1,000 mg Albuterol Sulfate (Ventolin 0.083% Nebulizer Soln -) 1 amp NEB Q4H PRN PRN Reason: SHORT OF BREATH/WHEEZING Albuterol/Ipratropium (Duoneb -) 1 amp NEB RTID [facility] Last Admin: 01/29/18 20:38 Dose: 1 amp Amino Acids (Prosource No Carb Liquid Pkt) 30 ml PO BID@0800,1730 [facility] Last Admin: 01/30/18 08:37 Dose: 30 ml Benzocaine/Menthol (Cepacol Lozenge -) 1 each MM PRN PRN PRN Reason: SORE THROAT Budesonide/Formoterol Fumarate (Symbicort 160/4.5mcg -) 2 puff IH BID [facility] Last Admin: 01/29/18 23:12 Dose: 2 puff Docusate Sodium (Colace -) 300 mg PO HS [facility] Last Admin: 01/29/18 23:17 Dose: Not Given Haloperidol (Haldol Injection (Fast Acting) -) 5 mg IM Q4H PRN PRN Reason: AGITATION Daptomycin 650 mg/ Sodium (Chloride) 50 mls @ 100 mls/hr IVPB DAILY SABINA; Protocol Last Admin: 01/29/18 12:13 Dose: 100 mls/hr Piperacillin Sod/Tazobactam (Sod 4.5 gm/ Dextrose) 100 mls @ 200 mls/hr IVPB Q8H-IV SABINA; Protocol Last Admin: 01/30/18 01:36 Dose: 200 mls/hr Nystatin (Mycostatin Cream -) 1 applic TP BID [facility] Last Admin: 01/29/18 23:11 Dose: 1 applic Ondansetron HCl (Zofran Injection) 4 mg IVPUSH Q6H PRN PRN Reason: NAUSEA AND/OR VOMITING Pantoprazole Sodium (Protonix -) 40 mg PO DAILY [facility] Last Admin: 01/29/18 10:21 Dose: 40 mg Polyethylene Glycol (Miralax (For Daily Use) -) 17 gm PO BID [facility] Last Admin: 01/29/18 23:09 Dose: 17 grams Rifampin (Rifadin -) 300 mg PO BID [facility] Last Admin: 01/29/18 23:11 Dose: 300 mg Senna (Senna -) 2 tab PO [facility] Last Admin: 01/29/18 23:10 Dose: 2 tab Trazodone HCl (Desyrel -) 150 mg PO [facility] Last Admin: 01/29/18 23:11 Dose: 150 mg Gen: NAD at rest Heart: RRR Lung: scattered rhonchi Abd: soft, nontender Ext: no edema A/P Lumbar Compression Fractures s/p T12-L4 Laminectomies/T9-pelvis instrumentation/T9-S1 posterior lateral arthrodesis Acute COPD Exacerbation improved Chronic Hypoxic Respiratory Failure Pneumonia Back Wound Infection MRSA Bacteremia Anemia - ABX per ID - inhaled bronchodilators standing and PRN - pain control - incentive spirometry - O2 to keep SpO2 >90% - PO as tolerated - bowel regimen - rehab/PT - DVT prophylaxis Dr Gross
[2018-01-30] MEDS: POLYETHYLENE GLYCOL 3350 119 GM BTL PO SCH ×3 (10:27→21:12)
[2018-01-30] MEDS: BUDESONIDE/FORMETEROL FUMARATE 160/4.5 mcg INHALER IH SCH ×2 (10:27→21:14)
[2018-01-30] MEDS: NYSTATIN 100,000 UNIT/GM TOPICAL CREAM 15 GM TUBE TP SCH ×2 (10:28→21:13)
[2018-01-30] MEDS: DAPTOMYCIN 650 MG in SODIUM CHLORIDE 50 ML IVPB SCH (11:06)
--- NOTE | 2018-01-30 15:40 | PN ---
Physical Exam: SUBJECTIVE: Patient seen and examined at bedside this morning. No new complaints , No over night events. Surgical drain was removed this past tuesday. OBJECTIVE: Vital Signs Period Temp Pulse Resp BP Sys/Hyman Pulse Ox Last 24 Hr 98.5 F-99.3 F 77-90 20-20 140-150/60-82 Intake & Output 01/29/18 01/30/18 01/30/18 23:59 11:59 23:59 Intake Total 550 300 200 Output Total 400 300 Balance 150 0 200 Intake: IVPB 250 100 Oral 300 200 200 Output: Urine 400 300 Reyes 400 300 Other: Voiding Method Indwelling Catheter Indwelling Catheter Bowel Movement Yes Yes GENERAL: A&O to person and location, NAD HEAD: NCAT ENT: Oropharynx clear without exudates, moist mucous membranes. NECK: No JVD LUNGS: Unable to assess posterior breath sounds, Anterior Breath sounds are clear to auscultation bilaterally HEART: Regular rate and rhythm, S1, S2 without murmur ABDOMEN: Soft, nontender, nondistended, + bowel sounds : Reyes draining yellow urine EXTREMITIES: 2+ pulses, no edema, wearing SCDs Microbiology 01/27/18 06:30 Blood - Peripheral Venous Blood Culture - Preliminary NO GROWTH OBTAINED AFTER 72 HOURS, INCUBATION TO CONTINUE FOR 2 DAYS. 01/27/18 06:00 Blood - Peripheral Venous Blood Culture - Preliminary NO GROWTH OBTAINED AFTER 72 HOURS, INCUBATION TO CONTINUE FOR 2 DAYS. 01/23/18 07:10 Wound-Other Gram Stain - Final 01/23/18 07:10 Wound-Other Wound Culture - Final Escherichia Coli 01/20/18 15:30 Back Gram Stain - Final 01/20/18 15:30 Back Wound Culture - Final Mr S Aureus 01/20/18 09:50 Wound-Other Gram Stain - Final 01/20/18 09:50 Wound-Other Wound Culture - Final Mr S Aureus 01/17/18 19:35 Abscess Gram Stain - Final 01/17/18 19:35 Abscess Wound Culture - Final Mr S Aureus 01/17/18 19:38 Tissue-Other Gram Stain - Final 01/17/18 19:38 Tissue-Other Tissue Culture - Final Staphylococcus Species 01/17/18 19:38 Tissue-Other Anaerobic Culture - Final 01/17/18 19:34 Abscess Gram Stain - Final 01/17/18 19:34 Abscess Wound Culture - Final Mr S Aureus 01/15/18 09:00 Blood - Peripheral Venous Blood Culture - Final NO GROWTH AFTER 5 DAYS INCUBATION 01/15/18 06:30 Blood - Peripheral Venous Blood Culture - Final NO GROWTH AFTER 5 DAYS INCUBATION 01/12/18 23:40 Blood - Peripheral Venous Blood Culture - Final S Aureus 01/12/18 23:40 Blood - Peripheral Venous Blood Culture - Final S Aureus 01/10/18 19:00 Blood - Peripheral Venous Blood Culture - Final S Aureus 01/10/18 18:00 Blood - Peripheral Venous Blood Culture - Final S Aureus 01/10/18 15:00 Urine - Urine - Catheterized Urine Culture - Final Escherichia Coli Active Medications Acetaminophen (Tylenol -) 1,000 mg PO Q6H PRN PRN Reason: PAIN LEVEL 1 - 3 Last Admin: 01/29/18 23:10 Dose: 1,000 mg Albuterol Sulfate (Ventolin 0.083% Nebulizer Soln -) 1 amp NEB Q4H PRN PRN Reason: SHORT OF BREATH/WHEEZING Albuterol/Ipratropium (Duoneb -) 1 amp NEB RTID [facility] Last Admin: 01/30/18 07:40 Dose: 1 amp Amino Acids (Prosource No Carb Liquid Pkt) 30 ml PO BID@0800,1730 [facility] Last Admin: 01/30/18 08:37 Dose: 30 ml Benzocaine/Menthol (Cepacol Lozenge -) 1 each MM PRN PRN PRN Reason: SORE THROAT Budesonide/Formoterol Fumarate (Symbicort 160/4.5mcg -) 2 puff IH BID [facility] Last Admin: 01/30/18 10:27 Dose: 2 puff Docusate Sodium (Colace -) 300 mg PO HS [facility] Last Admin: 01/29/18 23:17 Dose: Not Given Haloperidol (Haldol Injection (Fast Acting) -) 5 mg IM Q4H PRN PRN Reason: AGITATION Daptomycin 650 mg/ Sodium (Chloride) 50 mls @ 100 mls/hr IVPB DAILY [facility]; Protocol Last Admin: 01/30/18 11:06 Dose: 100 mls/hr Piperacillin Sod/Tazobactam (Sod 4.5 gm/ Dextrose) 100 mls @ 200 mls/hr IVPB Q8H-IV [facility]INA; Protocol Last Admin: 01/30/18 10:26 Dose: 200 mls/hr Nystatin (Mycostatin Cream -) 1 applic TP BID [facility] Last Admin: 01/30/18 10:28 Dose: 1 applic Ondansetron HCl (Zofran Injection) 4 mg IVPUSH Q6H PRN PRN Reason: NAUSEA AND/OR VOMITING Pantoprazole Sodium (Protonix -) 40 mg PO DAILY [facility] Last Admin: 01/30/18 10:25 Dose: 40 mg Polyethylene Glycol (Miralax (For Daily Use) -) 17 gm PO BID [facility] Last Admin: 01/30/18 10:40 Dose: Not Given Rifampin (Rifadin -) 300 mg PO BID [facility] Last Admin: 01/30/18 10:26 Dose: 300 mg Senna (Senna -) 2 tab PO [facility] Last Admin: 01/29/18 23:10 Dose: 2 tab Trazodone HCl (Desyrel -) 150 mg PO HS [facility] Last Admin: 01/29/18 23:11 Dose: 150 mg IMAGING: - Fluoroscopy: Multiple spot radiographs of the lumbar spine obtained in the OR during a posterior fusion procedure are submitted. - CXR (01/04): There is no evidence of vascular congestive changes, pneumonia, pneumothorax, or large pleural effusion. - CXR (01/10): Since the prior study of 01/04/2018 at 1106 hours, there is new atelectasis or infiltrate at the left base. The remainder the study is unchanged. - US Abdomen: Mild hepatomegaly. Moderately distended gallbladder without evidence of cholelithiasis or acute pathology. AAA with stenting. - Echo: LVEF 60-65%, No regional wall motion abnormalities, Trace Pulmonic valve regurg, No pericardial effusion ASSESSMENT/PLAN: 82 y/o M w/ PMHx COPD, chronic urinary retention, aortic aneurysm admitted to ICU s/p lumbar Sx complicated by MRSA infection of hardware, bacteremia, UTI PNA 1. Sepsis -Secondary to UTI, PNA, and Surgical Wound Infection with MRSA -Remains Afebrile, No Leukocytosis -UA (01/10): 211 WBC, 3+ LE -CXR (01/10): New atelectasis or infiltrate at the left base -Echo noted above -S/P incision, drainage, washout of deep thoracic and lumbar spine (01/17) and washout of an infected thoracic/lumber spinal incision S/P posterior fusion with wound vac placement (01/20) -Blood and Urine Cx noted above -Wound Cx: Escherichia Coli -ID Consulted, Appreciate rec's -Continue Daptomycin, Rifampin (Started on 01/23), Zosyn (Started on 01/26) -Tylenol 1,000 mg PO Q6H 2. Lumbar Spinal Stenosis with Lumbar compression fx and kyphosis -s/p T12-L4 laminectomies, T9-pelvis posterior instrumentation, T9-S1 posterolateral arthrodesis (01/03) -s/p posterior fusion with wound vac placement (01/20), Wound vac removed (01/27) -POD#6 s/p thoracolumbar wound debridement with lavage and complex closure -Physical therapy requested, Max distance traveled 5ft 3. COPD exacerbation -resolved -Continue Symbicort, Duonebs, Oxygen, Chest PT -Pulmonology consulted, Appreciate rec's 4. Normocytic Anemia -Hgb holding at 8.3 -Continue to hold IVF -s/p 3 pRBC units transfused 5. Chronic urinary retention -Patient self-caths at home -Reyes catheter present at this time 6. Constipation -Likely due to Opiate use s/p spinal surgery -Continue colace, senna, and miralax 7. FEN -PO Fluids -Lytes wnl -Regular diet 8. PPx -DVT: SCDs -GI: Protonix, Senna/colace, Miralax Visit type - Emergency Visit Emergency Visit: Yes ED Registration Date: 01/03/18 Care time: The patient presented to the Emergency Department on the above date and was hospitalized for further evaluation of their emergent condition. - New Patient This patient is new to me today: Yes Date on this admission: 01/30/18 - Critical Care Critical Care patient: No
--- NOTE | 2018-01-30 16:43 | PN ---
Progress Note (short form) - Note Progress Note: alert in bed just repositioned refuses to turn to let me see his back drain removed by orthopaedist 01/27 Vital Signs Period Temp Pulse Resp BP Sys/Hyman Pulse Ox Last 24 Hr 98.5 F-99.3 F 77-90 20-20 128-150/55-82 cor-rrr lungs decrerased bs at es abd soft,nt ext no edema +holder CBC, BMP 01/28/18 07:03 01/28/18 07:03 Microbiology 01/27/18 06:30 Blood - Peripheral Venous Blood Culture - Preliminary NO GROWTH OBTAINED AFTER 72 HOURS, INCUBATION TO CONTINUE FOR 2 DAYS. 01/27/18 06:00 Blood - Peripheral Venous Blood Culture - Preliminary NO GROWTH OBTAINED AFTER 72 HOURS, INCUBATION TO CONTINUE FOR 2 DAYS. 01/23/18 07:10 Wound-Other Gram Stain - Final 01/23/18 07:10 Wound-Other Wound Culture - Final Escherichia Coli 01/20/18 15:30 Back Gram Stain - Final 01/20/18 15:30 Back Wound Culture - Final Mr S Aureus 01/20/18 09:50 Wound-Other Gram Stain - Final 01/20/18 09:50 Wound-Other Wound Culture - Final Mr S Aureus 01/17/18 19:35 Abscess Gram Stain - Final 01/17/18 19:35 Abscess Wound Culture - Final Mr S Aureus 01/17/18 19:38 Tissue-Other Gram Stain - Final 01/17/18 19:38 Tissue-Other Tissue Culture - Final Staphylococcus Species 01/17/18 19:38 Tissue-Other Anaerobic Culture - Final 01/17/18 19:34 Abscess Gram Stain - Final 01/17/18 19:34 Abscess Wound Culture - Final Mr S Aureus 01/15/18 09:00 Blood - Peripheral Venous Blood Culture - Final NO GROWTH AFTER 5 DAYS INCUBATION 01/15/18 06:30 Blood - Peripheral Venous Blood Culture - Final NO GROWTH AFTER 5 DAYS INCUBATION 01/12/18 23:40 Blood - Peripheral Venous Blood Culture - Final Mr S Aureus 01/12/18 23:40 Blood - Peripheral Venous Blood Culture - Final Mr S Aureus 01/10/18 19:00 Blood - Peripheral Venous Blood Culture - Final Mr S Aureus 01/10/18 18:00 Blood - Peripheral Venous Blood Culture - Final Mr S Aureus 01/10/18 15:00 Urine - Urine - Catheterized Urine Culture - Final Escherichia Coli a/p MRSA bacteremia-negative blood cultures 01/15 MRSA surgical wound infection infected hardware- s/p washout 01/17-MRSA- wound culture 01/23 with ecoli s/p laminectomy T12 to L4 -01/03 d/c zosyn, add ceftriaxone continue daptomycin will require [facility] abx minimum 6 to 8 weeks and lifelong suppressive antibiotics with bactrim or minocycline to follow-d/w daughter at length-she is aware follow labs esr/crp trending down, follow weekly follow cplk weekly as well Problem List - Problems (1) Fever Code(s): R50.9 - FEVER, UNSPECIFIED (2) Status post laminectomy Code(s): Z98.890 - OTHER SPECIFIED POSTPROCEDURAL STATES
[2018-01-30] MEDS: CEFTRIAXONE 2 GM in DEXTROSE 5%-WATER 100 ML IVPB SCH (17:03)
[2018-01-30] MEDS: ACETAMINOPHEN 500 MG TABLET (FP) PO PRN (19:09)
--- NOTE | 2018-01-30 20:10 | PN ---
Teaching Attending Note Name of Resident: Zabrina Sullivan ATTENDING PHYSICIAN STATEMENT I saw and evaluated the patient. I reviewed the resident's note and discussed the case with the resident. I agree with the resident's findings and plan as documented. SUBJECTIVE: Patient is lying in bed with no acute distress. OBJECTIVE: Vital Signs Temperature 98.6 F 01/30/18 17:09 Pulse Rate 88 01/30/18 17:09 Respiratory Rate 20 01/30/18 17:09 Blood Pressure 140/59 L 01/30/18 17:09 O2 Sat by Pulse Oximetry (%) 99 01/29/18 09:45 Gen: lying in bed with no acute distress HEART: S1S2, RRR ABDOMEN: Soft, non-tender, non-distended, normal BS EXTREMITIES: No edema Neuro and back exam as per ortho. WBC 7.7 K/mm3 (4.0-10.0) 01/28/18 07:03 RBC 3.04 M/mm3 (4.00-5.60) L 01/28/18 07:03 Hgb 8.5 GM/dL (11.7-16.9) L 01/28/18 07:03 Hct 26.4 % (35.4-49) L 01/28/18 07:03 MCV 86.6 fl (80-96) 01/28/18 07:03 MCHC 32.1 g/dl (32.0-35.9) 01/28/18 07:03 RDW 14.4 % (11.9-15.9) 01/28/18 07:03 Plt Count 249 K/MM3 (134-434) 01/28/18 07:03 MPV 7.7 fl (7.5-11.1) 01/28/18 07:03 CMP Sodium 138 mmol/L (136-145) 01/28/18 07:03 Potassium 3.4 mmol/L (3.5-5.1) L 01/28/18 07:03 Chloride 104 mmol/L (98-107) 01/28/18 07:03 Carbon Dioxide 27 mmol/L (21-32) 01/28/18 07:03 Anion Gap 8 MMOL/L (8-16) 01/28/18 07:03 BUN 18 mg/dL (7-18) 01/28/18 07:03 Creatinine 0.9 mg/dL (0.55-1.3) 01/28/18 07:03 Creat Clearance w eGFR > 60 (>60) 01/28/18 07:03 Random Glucose 72 mg/dL (74-106) L 01/28/18 07:03 Calcium 8.1 mg/dL (8.5-10.1) L 01/28/18 07:03 Total Bilirubin 0.5 mg/dL (0.2-1) 01/26/18 06:24 AST 12 U/L (15-37) L 01/26/18 06:24 ALT 22 U/L (13-61) 01/26/18 06:24 Alkaline Phosphatase 111 U/L (45-117) 01/26/18 06:24 Total Protein 5.0 g/dl (6.4-8.2) L 01/26/18 06:24 Albumin 1.9 g/dl (3.4-5.0) L 01/26/18 06:24 CARDIAC ENZYMES Creatine Kinase 40 IU/L (26-308) 01/24/18 05:30 Current Medications Generic Name Dose Route Start Last Admin Trade Name Freq PRN Reason Stop Dose Admin Acetaminophen 1,000 mg 01/27/18 14:31 01/30/18 19:09 Tylenol - PO 1,000 mg Q6H PRN Administration PAIN LEVEL 1 - 3 Albuterol Sulfate 1 amp 01/29/18 11:58 Ventolin 0.083% Nebulizer Soln - NEB Q4H PRN SHORT OF BREATH/WHEEZING Albuterol/Ipratropium 1 amp 01/29/18 14:00 01/30/18 20:01 Duoneb - NEB 1 amp RTID SABINA Administration Amino Acids 30 ml 01/27/18 17:30 01/30/18 17:24 Prosource No Carb Liquid Pkt PO 30 ml BID@0800,1730 SABINA Administration Benzocaine/Menthol 1 each 01/27/18 14:31 Cepacol Lozenge - MM PRN PRN SORE THROAT Budesonide/Formoterol Fumarate 2 puff 01/27/18 22:00 01/30/18 10:27 Symbicort 160/4.5mcg - IH 2 puff BID SABINA Administration Docusate Sodium 300 mg 01/27/18 22:00 01/29/18 23:17 Colace - PO Not Given HS SABINA Haloperidol 5 mg 01/27/18 14:31 Haldol Injection (Fast Acting) - IM Q4H PRN AGITATION Ceftriaxone Sodium 2 gm/ 100 mls @ 200 mls/hr 01/30/18 16:15 01/30/18 17:03 Dextrose IVPB 200 mls/hr DAILY SABINA Administration Protocol Daptomycin 500 mg/ Sodium 50 mls @ 50 mls/hr 01/31/18 10:00 Chloride IVPB DAILY SABINA Protocol Nystatin 1 applic 01/27/18 22:00 01/30/18 10:28 Mycostatin Cream - TP 1 applic BID SABINA Administration Ondansetron HCl 4 mg 01/27/18 14:31 Zofran Injection IVPUSH Q6H PRN NAUSEA AND/OR VOMITING Pantoprazole Sodium 40 mg 01/28/18 10:00 01/30/18 10:25 Protonix - PO 40 mg DAILY SABINA Administration Polyethylene Glycol 17 gm 01/27/18 22:00 01/30/18 10:40 Miralax (For Daily Use) - PO Not Given BID SABINA Rifampin 300 mg 01/23/18 10:00 01/30/18 10:26 Rifadin - PO 300 mg BID SABINA Administration Senna 2 tab 01/27/18 22:00 01/29/18 23:10 Senna - PO 2 tab HS SABINA Administration Trazodone HCl 150 mg 01/27/18 22:00 01/29/18 23:11 Desyrel - PO 150 mg HS SABINA Administration Home Medications Medication Instructions Recorded Albuterol 2.5/Ipratropium 0.5 1 amp NEB TID 12/14/17 [Duoneb -] Cholecalciferol (Vitamin D3) 800 unit PO DAILY 12/14/17 [Vitamin D -] Furosemide [Lasix -] 20 mg PO PRN PRN 12/14/17 Gabapentin [Neurontin] 300 mg PO BID 12/14/17 Mometasone/Formoterol [Dulera 200 2 inh IH BID 12/14/17 Mcg/5 Mcg Inhaler] Omeprazole 40 mg PO DAILY 12/14/17 Polyethylene Glycol 3350 [Clearlax] 17 gm PO DAILY 12/14/17 Prednisone 5 mg PO DAILY 12/14/17 Trazodone HCl 150 mg PO DAILY 12/14/17 Aspirin [ASA -] 81 mg PO DAILY 01/03/18 Albuterol Sulfate 0.5% [Ventolin 2.5 01/26/18 0.5% Nebulizing Soln. -] Ipratropium 0.02% Nebulizer 1 amp NEB QID 01/26/18 [Atrovent 0.02% Nebulizer -] Microbiology 01/27/18 06:30 Blood - Peripheral Venous Blood Culture - Preliminary NO GROWTH OBTAINED AFTER 72 HOURS, INCUBATION TO CONTINUE FOR 2 DAYS. 01/27/18 06:00 Blood - Peripheral Venous Blood Culture - Preliminary NO GROWTH OBTAINED AFTER 72 HOURS, INCUBATION TO CONTINUE FOR 2 DAYS. 01/23/18 07:10 Wound-Other Gram Stain - Final 01/23/18 07:10 Wound-Other Wound Culture - Final Escherichia Coli 01/20/18 15:30 Back Gram Stain - Final 01/20/18 15:30 Back Wound Culture - Final Mr S Aureus 01/20/18 09:50 Wound-Other Gram Stain - Final 01/20/18 09:50 Wound-Other Wound Culture - Final Mr S Aureus 01/17/18 19:35 Abscess Gram Stain - Final 01/17/18 19:35 Abscess Wound Culture - Final Mr S Aureus 01/17/18 19:38 Tissue-Other Gram Stain - Final 01/17/18 19:38 Tissue-Other Tissue Culture - Final Staphylococcus Species 01/17/18 19:38 Tissue-Other Anaerobic Culture - Final 01/17/18 19:34 Abscess Gram Stain - Final 01/17/18 19:34 Abscess Wound Culture - Final Mr S Aureus 01/15/18 09:00 Blood - Peripheral Venous Blood Culture - Final NO GROWTH AFTER 5 DAYS INCUBATION 01/15/18 06:30 Blood - Peripheral Venous Blood Culture - Final NO GROWTH AFTER 5 DAYS INCUBATION 01/12/18 23:40 Blood - Peripheral Venous Blood Culture - Final Mr S Aureus 01/12/18 23:40 Blood - Peripheral Venous Blood Culture - Final Mr S Aureus 01/10/18 19:00 Blood - Peripheral Venous Blood Culture - Final Mr S Aureus 01/10/18 18:00 Blood - Peripheral Venous Blood Culture - Final Mr S Aureus 01/10/18 15:00 Urine - Urine - Catheterized Urine Culture - Final Escherichia Coli Echo shows normal LV, normal LV systolic function, LVEF 60-65%, E/A reversal, normal RV systolic function, trace [place]. ASSESSMENT AND PLAN: This is an 82 year old man a history of COPD, chronic urinary retention, lumbar compression fractures with spinal stenosis who was admitted for lumbar spine surgery. # POD# 23 (01/03/2018) s/p T12-L4 laminectomies. 2. T9-pelvis posterior instrumentation. 3. 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 4. Autograft. 5. Allograft. 6. Bone marrow aspirate. patient had 3 wash outs by the surgeon. Dressing is changed By # s/p sepsis secondary surgical wound infection with MRSA Bacteremia ; 01/23 woung grew E.coli , s/p incision & drainage, washout of deep thoracic and lumbar spine 01/17, s/p washout and application of wound VAC 01/20, s/p washout and closure of wound 01/23 growing Wound Culture - Escherichia Coli ,started on Zosyn a sper ID, continue Daptomycin, Rifampin. Blb Cx 01/10, 01/12, growing MRSA , on 01/15 Blood cultures negative after 5 days. Continue antibiotics x 6-8 weeks followed by lifelong suppressive therapy with Bactrim. Negative culture so far. # E. coli UTI on IV Rocephin as per ID changed from Zosyn continue #Acute exacerbation of COPD Improved, Continue Symbicort, DuoNeb, oxygen , completed Prednisone on 01/17, Patient was steroid-dependent at home # Chronic hypoxic respiratory failure keep Sa02 above >90% # Anemia s/p transfusion 3 units ,keep above > 8.0 # Chronic urinary retention , Patient does self-catheterization at home, Has Reyes catheter continue # Constipation continue Colace, Senna, Miralax DVT Px: SCds
[2018-01-30] MEDS: traZODone HCL 50 MG TABLET (FP) PO SCH (21:12)
[2018-01-30] MEDS: DOCUSATE SODIUM 100 MG CAPSULE (FP) PO SCH (21:12)
[2018-01-30] MEDS: SENNOSIDES 8.6MG TABLET (FP) PO SCH (21:12)
--- NOTE | 2018-01-30 21:43 | PN ---
Progress Note (short form) - Note Progress Note: Pt seen earlier this am to assist with dressing care. Vital Signs Period Temp Pulse Resp BP Sys/Hyman Pulse Ox Last 24 Hr 98.5 F-98.9 F 77-88 20-20 128-150/55-82 GEN: Alert and follows commands Back: incision dry along the entire length of the incision. Mid back there is an are of wound skin edge seperation, mild fibrinous material and eschar. Approximately 6 inches in length. Otherwise his incision is c/d/i with alma. CBC, BMP 01/28/18 07:03 01/28/18 07:03 Microbiology 01/27/18 06:30 Blood - Peripheral Venous Blood Culture - Preliminary NO GROWTH OBTAINED AFTER 72 HOURS, INCUBATION TO CONTINUE FOR 2 DAYS. 01/27/18 06:00 Blood - Peripheral Venous Blood Culture - Preliminary NO GROWTH OBTAINED AFTER 72 HOURS, INCUBATION TO CONTINUE FOR 2 DAYS. A/P: 82 yo male s/p T12-L4 laminectomies. 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 with MRSA wound infection s/p wound washout/debridment x2 Spoke with DR Roberts, will continue dry dressing to back daily and as needed to keep the wound dry Awaiting area of eschar to demarcate and will plan for possible debridment of this area. Continue IV abx as per ID, recommending 6 to 8 weeks more treatment and then oral antibiotics OOB/ambulate with PT. Care plan and managment D/w Dr. Roberts
[2018-01-31 08:05] LABS: ALBUMIN 1.7 g/dl (3.4-5.0); ALK PHOS 88 U/L (45-117); ANION GAP 7 MMOL/L (8-16); BILIRUBIN,TOTAL 0.4 mg/dL (0.2-1); BLOOD UREA NITROGEN 16 mg/dL (7-18); CALCIUM 8.2 mg/dL (8.5-10.1); CHLORIDE 103 mmol/L (98-107); CO2 27 mmol/L (21-32); CREATININE 0.7 mg/dL (0.55-1.3); GLUCOSE,RANDOM 82 mg/dL (74-106); MAGNESIUM 1.9 mg/dL (1.8-2.4); PHOSPHOROUS 3.3 mg/dL (2.5-4.9); POTASSIUM 3.4 mmol/L (3.5-5.1); SGOT/AST 14 U/L (15-37); SGPT/ALT 11 U/L (13-61); SODIUM 137 mmol/L (136-145); TOT PROT 4.8 g/dl (6.4-8.2)
[2018-01-31] MEDS: AMINO ACIDS/PROTEIN HYDROLYS 30 ML LIQUID.PKT PO SCH ×2 (08:18→17:16)
--- NOTE | 2018-01-31 08:26 | PN ---
Teaching Attending Note Name of Resident: Zabrina Sullivan ATTENDING PHYSICIAN STATEMENT I saw and evaluated the patient. I reviewed the resident's note and discussed the case with the resident. I agree with the resident's findings and plan as documented. SUBJECTIVE: Patient is totally awake today with no acute distress OBJECTIVE: Vital Signs Temperature 98.6 F 01/30/18 17:09 Pulse Rate 78 01/31/18 07:46 Respiratory Rate 20 01/30/18 17:09 Blood Pressure 92/73 01/31/18 07:46 O2 Sat by Pulse Oximetry (%) 99 01/29/18 09:45 Gen: lying in bed with no acute distress HEART: S1S2, RRR ABDOMEN: Soft, non-tender, non-distended, normal BS EXTREMITIES: No edema Neuro and back exam as per ortho. CBCD WBC 7.7 K/mm3 (4.0-10.0) 01/28/18 07:03 RBC 3.04 M/mm3 (4.00-5.60) L 01/28/18 07:03 Hgb 8.5 GM/dL (11.7-16.9) L 01/28/18 07:03 Hct 26.4 % (35.4-49) L 01/28/18 07:03 MCV 86.6 fl (80-96) 01/28/18 07:03 MCHC 32.1 g/dl (32.0-35.9) 01/28/18 07:03 RDW 14.4 % (11.9-15.9) 01/28/18 07:03 Plt Count 249 K/MM3 (134-434) 01/28/18 07:03 MPV 7.7 fl (7.5-11.1) 01/28/18 07:03 CMP Sodium 137 mmol/L (136-145) 01/31/18 06:30 Potassium 3.4 mmol/L (3.5-5.1) L 01/31/18 06:30 Chloride 103 mmol/L (98-107) 01/31/18 06:30 Carbon Dioxide 27 mmol/L (21-32) 01/31/18 06:30 Anion Gap 7 MMOL/L (8-16) L 01/31/18 06:30 BUN 16 mg/dL (7-18) 01/31/18 06:30 Creatinine 0.7 mg/dL (0.55-1.3) 01/31/18 06:30 Creat Clearance w eGFR > 60 (>60) 01/31/18 06:30 Random Glucose 82 mg/dL (74-106) 01/31/18 06:30 Calcium 8.2 mg/dL (8.5-10.1) L 01/31/18 06:30 Total Bilirubin 0.4 mg/dL (0.2-1) 01/31/18 06:30 AST 14 U/L (15-37) L 01/31/18 06:30 ALT 11 U/L (13-61) L 01/31/18 06:30 Alkaline Phosphatase 88 U/L (45-117) 01/31/18 06:30 Total Protein 4.8 g/dl (6.4-8.2) L 01/31/18 06:30 Albumin 1.7 g/dl (3.4-5.0) L 01/31/18 06:30 CARDIAC ENZYMES Creatine Kinase 40 IU/L (26-308) 01/31/18 06:30 Current Medications Generic Name Dose Route Start Last Admin Trade Name Freq PRN Reason Stop Dose Admin Acetaminophen 1,000 mg 01/27/18 14:31 01/30/18 19:09 Tylenol - PO 1,000 mg Q6H PRN Administration PAIN LEVEL 1 - 3 Albuterol Sulfate 1 amp 01/29/18 11:58 Ventolin 0.083% Nebulizer Soln - NEB Q4H PRN SHORT OF BREATH/WHEEZING Albuterol/Ipratropium 1 amp 01/29/18 14:00 01/30/18 20:01 Duoneb - NEB 1 amp RTID SABINA Administration Amino Acids 30 ml 01/27/18 17:30 01/31/18 08:18 Prosource No Carb Liquid Pkt PO 30 ml BID@0800,1730 SABINA Administration Benzocaine/Menthol 1 each 01/27/18 14:31 Cepacol Lozenge - MM PRN PRN SORE THROAT Budesonide/Formoterol Fumarate 2 puff 01/27/18 22:00 01/30/18 21:14 Symbicort 160/4.5mcg - IH 2 puff BID SABINA Administration Docusate Sodium 300 mg 01/27/18 22:00 01/30/18 21:12 Colace - PO Not Given HS SABINA Haloperidol 5 mg 01/27/18 14:31 Haldol Injection (Fast Acting) - IM Q4H PRN AGITATION Ceftriaxone Sodium 2 gm/ 100 mls @ 200 mls/hr 01/30/18 16:15 01/30/18 17:03 Dextrose IVPB 200 mls/hr DAILY SABINA Administration Protocol Daptomycin 500 mg/ Sodium 50 mls @ 50 mls/hr 01/31/18 10:00 Chloride IVPB DAILY SABINA Protocol Nystatin 1 applic 01/27/18 22:00 01/30/18 21:13 Mycostatin Cream - TP 1 applic BID SABINA Administration Ondansetron HCl 4 mg 01/27/18 14:31 Zofran Injection IVPUSH Q6H PRN NAUSEA AND/OR VOMITING Pantoprazole Sodium 40 mg 01/28/18 10:00 01/30/18 10:25 Protonix - PO 40 mg DAILY SABINA Administration Polyethylene Glycol 17 gm 01/27/18 22:00 01/30/18 21:12 Miralax (For Daily Use) - PO Not Given BID SABINA Rifampin 300 mg 01/23/18 10:00 01/30/18 21:12 Rifadin - PO 300 mg BID SABINA Administration Senna 2 tab 01/27/18 22:00 01/30/18 21:12 Senna - PO Not Given HS SABINA Trazodone HCl 150 mg 01/27/18 22:00 01/30/18 21:12 Desyrel - PO 150 mg HS SABINA Administration Home Medications Medication Instructions Recorded Albuterol 2.5/Ipratropium 0.5 1 amp NEB TID 12/14/17 [Duoneb -] Cholecalciferol (Vitamin D3) 800 unit PO DAILY 12/14/17 [Vitamin D -] Furosemide [Lasix -] 20 mg PO PRN PRN 12/14/17 Gabapentin [Neurontin] 300 mg PO BID 12/14/17 Mometasone/Formoterol [Dulera 200 2 inh IH BID 12/14/17 Mcg/5 Mcg Inhaler] Omeprazole 40 mg PO DAILY 12/14/17 Polyethylene Glycol 3350 [Clearlax] 17 gm PO DAILY 12/14/17 Prednisone 5 mg PO DAILY 12/14/17 Trazodone HCl 150 mg PO DAILY 12/14/17 Aspirin [ASA -] 81 mg PO DAILY 01/03/18 Albuterol Sulfate 0.5% [Ventolin 2.5 01/26/18 0.5% Nebulizing Soln. -] Ipratropium 0.02% Nebulizer 1 amp NEB QID 01/26/18 [Atrovent 0.02% Nebulizer -] Microbiology 01/27/18 06:30 Blood - Peripheral Venous Blood Culture - Preliminary NO GROWTH OBTAINED AFTER 96 HOURS, INCUBATION TO CONTINUE FOR 1 DAYS. 01/27/18 06:00 Blood - Peripheral Venous Blood Culture - Preliminary NO GROWTH OBTAINED AFTER 96 HOURS, INCUBATION TO CONTINUE FOR 1 DAYS. 01/23/18 07:10 Wound-Other Gram Stain - Final 01/23/18 07:10 Wound-Other Wound Culture - Final Escherichia Coli 01/20/18 15:30 Back Gram Stain - Final 01/20/18 15:30 Back Wound Culture - Final Mr S Aureus 01/20/18 09:50 Wound-Other Gram Stain - Final 01/20/18 09:50 Wound-Other Wound Culture - Final Mr S Aureus 01/17/18 19:35 Abscess Gram Stain - Final 01/17/18 19:35 Abscess Wound Culture - Final Mr S Aureus 01/17/18 19:38 Tissue-Other Gram Stain - Final 01/17/18 19:38 Tissue-Other Tissue Culture - Final Staphylococcus Species 01/17/18 19:38 Tissue-Other Anaerobic Culture - Final 01/17/18 19:34 Abscess Gram Stain - Final 01/17/18 19:34 Abscess Wound Culture - Final Mr S Aureus 01/15/18 09:00 Blood - Peripheral Venous Blood Culture - Final NO GROWTH AFTER 5 DAYS INCUBATION 01/15/18 06:30 Blood - Peripheral Venous Blood Culture - Final NO GROWTH AFTER 5 DAYS INCUBATION 01/12/18 23:40 Blood - Peripheral Venous Blood Culture - Final Mr S Aureus 01/12/18 23:40 Blood - Peripheral Venous Blood Culture - Final Mr S Aureus 01/10/18 19:00 Blood - Peripheral Venous Blood Culture - Final Mr S Aureus 01/10/18 18:00 Blood - Peripheral Venous Blood Culture - Final Mr S Aureus 01/10/18 15:00 Urine - Urine - Catheterized Urine Culture - Final Escherichia Coli Echo shows normal LV, normal LV systolic function, LVEF 60-65%, E/A reversal, normal RV systolic function, trace CA. ASSESSMENT AND PLAN: This is an 82 year old man a history of COPD, chronic urinary retention, lumbar compression fractures with spinal stenosis who was admitted for lumbar spine surgery. # POD# 21 (01/03/2018) s/p T12-L4 laminectomies. 2. T9-pelvis posterior instrumentation. 3. 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 4. Autograft. 5. Allograft. 6. Bone marrow aspirate. patient had 3 wash outs by the surgeon. Dressing is changed By # s/p sepsis secondary surgical wound infection with MRSA Bacteremia s/p incision & drainage, 01/23 wound is growing E.coli, washout of deep thoracic and lumbar spine 01/17, s/p washout and application of wound VAC 01/20, s/p washout and closure of wound 01/23 growing Wound Culture - Escherichia Coli , started on Zosyn a sper ID, continue Daptomycin, Rifampin. Blb Cx 01/10, 01/12, growing MRSA, on 01/15 Blood cultures negative after 5 days. Continue antibiotics x 6-8 weeks followed by lifelong suppressive therapy with Bactrim. Further wound care as per Surgeon # E. coli UTI on IV Rocephin continue was on Zosyn #Acute exacerbation of COPD Improved, Continue Symbicort, DuoNeb, oxygen , completed Prednisone on 01/17, Patient was steroid-dependent at home # Chronic hypoxic respiratory failure keep Sa02 above >90% # Anemia s/p transfusion 3 units ,keep above > 8.0 # Chronic urinary retention , Patient does self-catheterization at home, Has Reyes catheter renew daily # Constipation continue Colace, Senna, Miralax DVT Px: SCds
[2018-01-31] MEDS: ALBUTEROL SO4 2.5/IPRATROPIUM 0.5 INH SOL 3 ML VIAL.NEB. NEB SCH ×3 (08:35→20:26)
--- NOTE | 2018-01-31 09:06 | PN ---
Physical Exam: SUBJECTIVE: Patient seen and examined at bedside this morning. No new complaints , No over night events. Refused colace and miralax overnight. OBJECTIVE: Vital Signs Period Temp Pulse Resp BP Sys/Hyman Pulse Ox Last 24 Hr 98.5 F-98.9 F 78-88 20-20 92-150/55-82 Intake & Output 01/30/18 01/30/18 01/31/18 11:59 23:59 11:59 Intake Total 300 450 Output Total 300 950 450 Balance 0 -500 -450 Intake: IVPB 100 250 Oral 200 200 Output: Urine 300 950 450 Reyes 300 950 450 Other: Voiding Method Indwelling Catheter Indwelling Catheter Bowel Movement Yes No GENERAL: A&Ox3, NAD HEAD: NCAT ENT: Oropharynx clear without exudates, moist mucous membranes. NECK: No JVD LUNGS: Unable to assess posterior breath sounds, Anterior Breath sounds are clear to auscultation bilaterally HEART: Regular rate and rhythm, S1, S2 without murmur ABDOMEN: Soft, nontender, nondistended, + bowel sounds : Reyes draining yellow urine EXTREMITIES: 2+ pulses, no edema Laboratory Results - last 24 hr 01/31/18 06:30 Sodium 137 Potassium 3.4 L Chloride 103 Carbon Dioxide 27 Anion Gap 7 L BUN 16 Creatinine 0.7 Creat Clearance w eGFR > 60 Random Glucose 82 Calcium 8.2 L Phosphorus 3.3 Magnesium 1.9 Total Bilirubin 0.4 AST 14 L ALT 11 L Alkaline Phosphatase 88 Creatine Kinase 40 C-Reactive Protein 12.7 H Total Protein 4.8 L Albumin 1.7 L Microbiology 01/27/18 06:30 Blood - Peripheral Venous Blood Culture - Preliminary NO GROWTH OBTAINED AFTER 96 HOURS, INCUBATION TO CONTINUE FOR 1 DAYS. 01/27/18 06:00 Blood - Peripheral Venous Blood Culture - Preliminary NO GROWTH OBTAINED AFTER 96 HOURS, INCUBATION TO CONTINUE FOR 1 DAYS. 01/23/18 07:10 Wound-Other Gram Stain - Final 01/23/18 07:10 Wound-Other Wound Culture - Final Escherichia Coli 01/20/18 15:30 Back Gram Stain - Final 01/20/18 15:30 Back Wound Culture - Final Mr S Aureus 01/20/18 09:50 Wound-Other Gram Stain - Final 01/20/18 09:50 Wound-Other Wound Culture - Final Mr S Aureus 01/17/18 19:35 Abscess Gram Stain - Final 01/17/18 19:35 Abscess Wound Culture - Final S Aureus 01/17/18 19:38 Tissue-Other Gram Stain - Final 01/17/18 19:38 Tissue-Other Tissue Culture - Final Staphylococcus Species 01/17/18 19:38 Tissue-Other Anaerobic Culture - Final 01/17/18 19:34 Abscess Gram Stain - Final 01/17/18 19:34 Abscess Wound Culture - Final S Aureus 01/15/18 09:00 Blood - Peripheral Venous Blood Culture - Final NO GROWTH AFTER 5 DAYS INCUBATION 01/15/18 06:30 Blood - Peripheral Venous Blood Culture - Final NO GROWTH AFTER 5 DAYS INCUBATION 01/12/18 23:40 Blood - Peripheral Venous Blood Culture - Final S Aureus 01/12/18 23:40 Blood - Peripheral Venous Blood Culture - Final Mr S Aureus 01/10/18 19:00 Blood - Peripheral Venous Blood Culture - Final S Aureus 01/10/18 18:00 Blood - Peripheral Venous Blood Culture - Final S Aureus 01/10/18 15:00 Urine - Urine - Catheterized Urine Culture - Final Escherichia Coli Active Medications Acetaminophen (Tylenol -) 1,000 mg PO Q6H PRN PRN Reason: PAIN LEVEL 1 - 3 Last Admin: 01/30/18 19:09 Dose: 1,000 mg Albuterol Sulfate (Ventolin 0.083% Nebulizer Soln -) 1 amp NEB Q4H PRN PRN Reason: SHORT OF BREATH/WHEEZING Albuterol/Ipratropium (Duoneb -) 1 amp NEB RTID [facility] Last Admin: 01/30/18 20:01 Dose: 1 amp Amino Acids (Prosource No Carb Liquid Pkt) 30 ml PO BID@0800,1730 [facility] Last Admin: 01/31/18 08:18 Dose: 30 ml Benzocaine/Menthol (Cepacol Lozenge -) 1 each MM PRN PRN PRN Reason: SORE THROAT Budesonide/Formoterol Fumarate (Symbicort 160/4.5mcg -) 2 puff IH BID [facility] Last Admin: 01/30/18 21:14 Dose: 2 puff Docusate Sodium (Colace -) 300 mg PO HS [facility] Last Admin: 01/30/18 21:12 Dose: Not Given Haloperidol (Haldol Injection (Fast Acting) -) 5 mg IM Q4H PRN PRN Reason: AGITATION Ceftriaxone Sodium 2 gm/ (Dextrose) 100 mls @ 200 mls/hr IVPB DAILY [facility]; Protocol Last Admin: 01/30/18 17:03 Dose: 200 mls/hr Daptomycin 500 mg/ Sodium (Chloride) 50 mls @ 50 mls/hr IVPB DAILY [facility]; Protocol Nystatin (Mycostatin Cream -) 1 applic TP BID [facility] Last Admin: 01/30/18 21:13 Dose: 1 applic Ondansetron HCl (Zofran Injection) 4 mg IVPUSH Q6H PRN PRN Reason: NAUSEA AND/OR VOMITING Pantoprazole Sodium (Protonix -) 40 mg PO DAILY [facility] Last Admin: 01/30/18 10:25 Dose: 40 mg Polyethylene Glycol (Miralax (For Daily Use) -) 17 gm PO BID [facility] Last Admin: 01/30/18 21:12 Dose: Not Given Rifampin (Rifadin -) 300 mg PO BID [facility] Last Admin: 01/30/18 21:12 Dose: 300 mg Senna (Senna -) 2 tab PO HS [facility] Last Admin: 01/30/18 21:12 Dose: Not Given Trazodone HCl (Desyrel -) 150 mg PO HS [facility] Last Admin: 01/30/18 21:12 Dose: 150 mg IMAGING: - Fluoroscopy: Multiple spot radiographs of the lumbar spine obtained in the OR during a posterior fusion procedure are submitted. - CXR (01/04): There is no evidence of vascular congestive changes, pneumonia, pneumothorax, or large pleural effusion. - CXR (01/10): Since the prior study of 01/04/2018 at 1106 hours, there is new atelectasis or infiltrate at the left base. The remainder the study is unchanged. - US Abdomen: Mild hepatomegaly. Moderately distended gallbladder without evidence of cholelithiasis or acute pathology. AAA with stenting. - Echo: LVEF 60-65%, No regional wall motion abnormalities, Trace Pulmonic valve regurg, No pericardial effusion ASSESSMENT/PLAN: 82 y/o M w/ PMHx COPD, chronic urinary retention, aortic aneurysm admitted to ICU s/p lumbar Sx complicated by MRSA infection of hardware, bacteremia, UTI PNA 1. Sepsis -Secondary to UTI, PNA, and Surgical Wound Infection with MRSA -Remains Afebrile, No Leukocytosis -UA (01/10): 211 WBC, 3+ LE -CXR (01/10): New atelectasis or infiltrate at the left base -Echo noted above -S/P incision, drainage, washout of deep thoracic and lumbar spine (01/17) and washout of an infected thoracic/lumber spinal incision S/P posterior fusion with wound vac placement (01/20) -Blood and Urine Cx noted above -Wound Cx: Escherichia Coli -ID Consulted, Appreciate rec's, Will follow weekly esr, crp, cpk -Continue Daptomycin, Rifampin (Started on 01/23), Ceftriaxone (started on 01/30) -Completed Zosyn dose (Started on 01/26, completed 01/30) -Tylenol 1,000 mg PO Q6H 2. Lumbar Spinal Stenosis with Lumbar compression fx and kyphosis -s/p T12-L4 laminectomies, T9-pelvis posterior instrumentation, T9-S1 posterolateral arthrodesis (01/03) -s/p posterior fusion with wound vac placement (01/20), Wound vac removed (01/27) -POD#7 s/p thoracolumbar wound debridement with lavage and complex closure -Physical therapy requested, Max distance traveled 5ft 3. COPD exacerbation -resolved -Continue Symbicort, Duonebs, Oxygen, Chest PT -Pulmonology consulted, Appreciate rec's, will add on LAMA at discharge 4. Normocytic Anemia -Hgb holding at 8.3 -Continue to hold IVF -s/p 3 pRBC units transfused 5. Chronic urinary retention -Patient self-caths at home -Reyes catheter present at this time 6. Constipation -Likely due to Opiate use s/p spinal surgery -Continue colace, senna, and miralax 7. FEN -PO Fluids -Lytes wnl -Regular diet 8. PPx -DVT: SCDs -GI: Protonix, Senna/colace, Miralax Visit type - Emergency Visit Emergency Visit: Yes ED Registration Date: 01/03/18 Care time: The patient presented to the Emergency Department on the above date and was hospitalized for further evaluation of their emergent condition. - New Patient This patient is new to me today: Yes Date on this admission: 01/31/18 - Critical Care Critical Care patient: No
[2018-01-31] MEDS ORDERED: PT OWN MED DRAWER 7, Y5N ONE (09:18)
[2018-01-31] MEDS ORDERED: DEXTROSE 5%-WATER 100 ML IVPB ONE (09:18)
[2018-01-31] MEDS ORDERED: POTASSIUM CHLORIDE TABS 20 MEQ TABLET.ER (FP) PO ONE (09:30)
[2018-01-31] MEDS: PANTOPRAZOLE 40 MG TABLET (FP) PO SCH (09:31)
[2018-01-31] MEDS: POLYETHYLENE GLYCOL 3350 119 GM BTL PO SCH ×2 (09:31→21:09)
[2018-01-31] MEDS: NYSTATIN 100,000 UNIT/GM TOPICAL CREAM 15 GM TUBE TP SCH ×2 (09:31→21:10)
[2018-01-31] MEDS: RIFAMPIN 300 MG CAPSULE PO SCH ×2 (09:32→21:09)
[2018-01-31] MEDS: BUDESONIDE/FORMETEROL FUMARATE 160/4.5 mcg INHALER IH SCH ×2 (09:32→21:08)
[2018-01-31] MEDS: CEFTRIAXONE 2 GM in DEXTROSE 5%-WATER 100 ML IVPB SCH (09:32)
--- NOTE | 2018-01-31 10:34 | PN ---
Progress Note (short form) - Note Progress Note: Resting in NAD. No shortness of breath or chest pain. No acute events overnight. Intake & Output 01/28/18 01/29/18 01/30/18 01/31/18 23:59 23:59 23:59 23:59 Intake Total 250 790 750 Output Total 0925 257 3463 450 Balance -1150 -10 -500 -450 Last Vital Signs Temp Pulse Resp BP Pulse Ox 99.6 F 88 20 140/60 99 01/31/18 09:16 01/31/18 09:16 01/31/18 09:16 01/31/18 09:16 01/29/18 09:45 Active Medications Acetaminophen (Tylenol -) 1,000 mg PO Q6H PRN PRN Reason: PAIN LEVEL 1 - 3 Last Admin: 01/30/18 19:09 Dose: 1,000 mg Albuterol Sulfate (Ventolin 0.083% Nebulizer Soln -) 1 amp NEB Q4H PRN PRN Reason: SHORT OF BREATH/WHEEZING Albuterol/Ipratropium (Duoneb -) 1 amp NEB RTID [facility] Last Admin: 01/30/18 20:01 Dose: 1 amp Amino Acids (Prosource No Carb Liquid Pkt) 30 ml PO BID@0800,1730 [facility] Last Admin: 01/31/18 08:18 Dose: 30 ml Benzocaine/Menthol (Cepacol Lozenge -) 1 each MM PRN PRN PRN Reason: SORE THROAT Budesonide/Formoterol Fumarate (Symbicort 160/4.5mcg -) 2 puff IH BID [facility] Last Admin: 01/31/18 09:32 Dose: 2 puff Docusate Sodium (Colace -) 300 mg PO HS [facility] Last Admin: 01/30/18 21:12 Dose: Not Given Haloperidol (Haldol Injection (Fast Acting) -) 5 mg IM Q4H PRN PRN Reason: AGITATION Ceftriaxone Sodium 2 gm/ (Dextrose) 100 mls @ 200 mls/hr IVPB DAILY [facility]; Protocol Last Admin: 01/31/18 09:32 Dose: 200 mls/hr Daptomycin 500 mg/ Sodium (Chloride) 50 mls @ 50 mls/hr IVPB DAILY [facility]; Protocol Nystatin (Mycostatin Cream -) 1 applic TP BID [facility] Last Admin: 01/31/18 09:31 Dose: 1 applic Ondansetron HCl (Zofran Injection) 4 mg IVPUSH Q6H PRN PRN Reason: NAUSEA AND/OR VOMITING Pantoprazole Sodium (Protonix -) 40 mg PO DAILY [facility] Last Admin: 01/31/18 09:31 Dose: 40 mg Polyethylene Glycol (Miralax (For Daily Use) -) 17 gm PO BID [facility] Last Admin: 01/31/18 09:31 Dose: Not Given Rifampin (Rifadin -) 300 mg PO BID [facility] Last Admin: 01/31/18 09:32 Dose: 300 mg Senna (Senna -) 2 tab PO [facility] Last Admin: 01/30/18 21:12 Dose: Not Given Trazodone HCl (Desyrel -) 150 mg PO [facility] Last Admin: 01/30/18 21:12 Dose: 150 mg Gen: NAD at rest Heart: RRR Lung: scattered rhonchi Abd: soft, nontender Ext: no edema Laboratory Results - last 24 hr 01/31/18 01/31/18 06:30 06:30 ESR 90 H Sodium 137 Potassium 3.4 L Chloride 103 Carbon Dioxide 27 Anion Gap 7 L BUN 16 Creatinine 0.7 Creat Clearance w eGFR > 60 Random Glucose 82 Calcium 8.2 L Phosphorus 3.3 Magnesium 1.9 Total Bilirubin 0.4 AST 14 L ALT 11 L Alkaline Phosphatase 88 Creatine Kinase 40 C-Reactive Protein 12.7 H Total Protein 4.8 L Albumin 1.7 L A/P Lumbar Compression Fractures s/p T12-L4 Laminectomies/T9-pelvis instrumentation/T9-S1 posterior lateral arthrodesis Acute COPD Exacerbation improved Chronic Hypoxic Respiratory Failure Pneumonia Back Wound Infection MRSA Bacteremia Anemia - ABX per ID - inhaled bronchodilators standing and PRN - pain control - incentive spirometry - O2 to keep SpO2 >90% - PO as tolerated - bowel regimen - rehab/PT - DVT prophylaxis - No Pulmonary contraindication for D/C planning: should add on LAMA at discharge Dr Gross
[2018-01-31] MEDS: DAPTOMYCIN 500 MG in SODIUM CHLORIDE 50 ML IVPB SCH (10:46)
[2018-01-31] MEDS: ACETAMINOPHEN 500 MG TABLET (FP) PO PRN (13:42)
--- NOTE | 2018-01-31 16:51 | PN ---
Progress Note (short form) - Note Progress Note: alert in bed just repositioned has sbone stimulato on - cannot remove to look at back Vital Signs Period Temp Pulse Resp BP Sys/Hyman Pulse Ox Last 24 Hr 98.2 F-99.6 F 78-89 18-20 92-140/52-73 cor-rrr lungs clear abd soft,nt ext no edema +holder CBC, BMP 01/28/18 07:03 01/31/18 06:30 Microbiology 01/27/18 06:30 Blood - Peripheral Venous Blood Culture - Preliminary NO GROWTH OBTAINED AFTER 96 HOURS, INCUBATION TO CONTINUE FOR 1 DAYS. 01/27/18 06:00 Blood - Peripheral Venous Blood Culture - Preliminary NO GROWTH OBTAINED AFTER 96 HOURS, INCUBATION TO CONTINUE FOR 1 DAYS. Current Medications Acetaminophen (Tylenol -) 1,000 mg PO Q6H PRN PRN Reason: PAIN LEVEL 1 - 3 Last Admin: 01/31/18 13:42 Dose: 1,000 mg Albuterol Sulfate (Ventolin 0.083% Nebulizer Soln -) 1 amp NEB Q4H PRN PRN Reason: SHORT OF BREATH/WHEEZING Albuterol/Ipratropium (Duoneb -) 1 amp NEB RTID [facility] Last Admin: 01/31/18 08:35 Dose: 1 amp Amino Acids (Prosource No Carb Liquid Pkt) 30 ml PO BID@0800,1730 [facility] Last Admin: 01/31/18 08:18 Dose: 30 ml Benzocaine/Menthol (Cepacol Lozenge -) 1 each MM PRN PRN PRN Reason: SORE THROAT Budesonide/Formoterol Fumarate (Symbicort 160/4.5mcg -) 2 puff IH BID [facility] Last Admin: 01/31/18 09:32 Dose: 2 puff Docusate Sodium (Colace -) 300 mg PO HS [facility] Last Admin: 01/30/18 21:12 Dose: Not Given Haloperidol (Haldol Injection (Fast Acting) -) 5 mg IM Q4H PRN PRN Reason: AGITATION Ceftriaxone Sodium 2 gm/ (Dextrose) 100 mls @ 200 mls/hr IVPB DAILY [facility]; Protocol Last Admin: 01/31/18 09:32 Dose: 200 mls/hr Daptomycin 500 mg/ Sodium (Chloride) 50 mls @ 50 mls/hr IVPB DAILY [facility]; Protocol Last Admin: 01/31/18 10:46 Dose: 50 mls/hr Nystatin (Mycostatin Cream -) 1 applic TP BID [facility] Last Admin: 01/31/18 09:31 Dose: 1 applic Ondansetron HCl (Zofran Injection) 4 mg IVPUSH Q6H PRN PRN Reason: NAUSEA AND/OR VOMITING Pantoprazole Sodium (Protonix -) 40 mg PO DAILY [facility] Last Admin: 01/31/18 09:31 Dose: 40 mg Polyethylene Glycol (Miralax (For Daily Use) -) 17 gm PO BID [facility] Last Admin: 01/31/18 09:31 Dose: Not Given Rifampin (Rifadin -) 300 mg PO BID [facility] Last Admin: 01/31/18 09:32 Dose: 300 mg Senna (Senna -) 2 tab PO [facility] Last Admin: 01/30/18 21:12 Dose: Not Given Trazodone HCl (Desyrel -) 150 mg PO HS [facility] Last Admin: 01/30/18 21:12 Dose: 150 mg a/p MRSA bacteremia-negative blood cultures 01/15 MRSA surgical wound infection infected hardware- s/p washout 01/17-MRSA- wound culture 01/23 with ecoli s/p laminectomy T12 to L4 -01/03 continue ceftriaxone continue daptomycin/rifampin will require jail abx minimum 6 to 8 weeks and lifelong suppressive antibiotics with bactrim or minocycline to follow-d/w daughter at length-she is aware follow labs esr/crp trending down, follow weekly follow cpk weekly as well Problem List - Problems (1) Fever Code(s): R50.9 - FEVER, UNSPECIFIED (2) Status post laminectomy Code(s): Z98.890 - OTHER SPECIFIED POSTPROCEDURAL STATES
[2018-01-31] MEDS: SENNOSIDES 8.6MG TABLET (FP) PO SCH (21:08)
[2018-01-31] MEDS: DOCUSATE SODIUM 100 MG CAPSULE (FP) PO SCH (21:09)
[2018-01-31] MEDS: traZODone HCL 50 MG TABLET (FP) PO SCH (21:09)
[2018-02-01] MEDS: ALBUTEROL SO4 2.5/IPRATROPIUM 0.5 INH SOL 3 ML VIAL.NEB. NEB SCH ×3 (08:20→20:30)
[2018-02-01] MEDS ORDERED: DEXTROSE 5%-WATER 100 ML IVPB ONE (08:40)
[2018-02-01 09:57] LABS: BASO % 0.4 % (0-2.0); EOS % 3.6 % (0-4.5); HEMATOCRIT 26.5 % (35.4-49); HEMOGLOBIN 8.3 GM/dL (11.7-16.9); LYMPH % 20.1 % (8-40); MCH 27.2 pg (25.7-33.7); MCHC 31.4 g/dl (32.0-35.9); MEAN CELL VOLUME 86.6 fl (80-96); MEAN PLT VOLUME 7.4 fl (7.5-11.1); MONO % 9.2 % (3.8-10.2); NEUT % 66.7 % (42.8-82.8); PLATELET COUNT 313 K/MM3 (134-434); RBC 3.06 M/mm3 (4.00-5.60); RDW 14.7 % (11.9-15.9); WHITE BLOOD COUNT 7.5 K/mm3 (4.0-10.0)
[2018-02-01] MEDS: PANTOPRAZOLE 40 MG TABLET (FP) PO SCH (09:57)
[2018-02-01] MEDS: AMINO ACIDS/PROTEIN HYDROLYS 30 ML LIQUID.PKT PO SCH ×2 (09:57→17:30)
[2018-02-01] MEDS: CEFTRIAXONE 2 GM in DEXTROSE 5%-WATER 100 ML IVPB SCH (09:58)
[2018-02-01] MEDS: RIFAMPIN 300 MG CAPSULE PO SCH ×2 (10:00→21:41)
[2018-02-01] MEDS: POLYETHYLENE GLYCOL 3350 119 GM BTL PO SCH ×2 (10:01→21:39)
[2018-02-01] MEDS: NYSTATIN 100,000 UNIT/GM TOPICAL CREAM 15 GM TUBE TP SCH ×2 (10:04→21:56)
[2018-02-01 10:49] LABS: ALBUMIN 1.8 g/dl (3.4-5.0); ALK PHOS 97 U/L (45-117); ANION GAP 7 MMOL/L (8-16); BILIRUBIN,TOTAL 0.3 mg/dL (0.2-1); BLOOD UREA NITROGEN 15 mg/dL (7-18); CALCIUM 8.4 mg/dL (8.5-10.1); CHLORIDE 104 mmol/L (98-107); CO2 24 mmol/L (21-32); CREATININE 0.7 mg/dL (0.55-1.3); GLUCOSE,RANDOM 77 mg/dL (74-106); MAGNESIUM 2.2 mg/dL (1.8-2.4); PHOSPHOROUS 2.8 mg/dL (2.5-4.9); POTASSIUM 3.9 mmol/L (3.5-5.1); SGOT/AST 12 U/L (15-37); SGPT/ALT 11 U/L (13-61); SODIUM 135 mmol/L (136-145); TOT PROT 5.2 g/dl (6.4-8.2)
[2018-02-01] MEDS: DAPTOMYCIN 500 MG in SODIUM CHLORIDE 50 ML IVPB SCH (11:06)
[2018-02-01] MEDS: BUDESONIDE/FORMETEROL FUMARATE 160/4.5 mcg INHALER IH SCH ×2 (11:06→21:56)
[2018-02-01] MEDS: ACETAMINOPHEN 500 MG TABLET (FP) PO PRN (12:30)
--- NOTE | 2018-02-01 14:49 | PN ---
Progress Note, Physician History of Present Illness: pulmonary alert,no distress,-sob - Current Medication List Current Medications: Active Medications Acetaminophen (Tylenol -) 1,000 mg PO Q6H PRN PRN Reason: PAIN LEVEL 1 - 3 Last Admin: 02/01/18 12:30 Dose: 1,000 mg Albuterol Sulfate (Ventolin 0.083% Nebulizer Soln -) 1 amp NEB Q4H PRN PRN Reason: SHORT OF BREATH/WHEEZING Albuterol/Ipratropium (Duoneb -) 1 amp NEB RTID [facility] Last Admin: 02/01/18 08:20 Dose: 1 amp Amino Acids (Prosource No Carb Liquid Pkt) 30 ml PO BID@0800,1730 [facility] Last Admin: 02/01/18 09:57 Dose: 30 ml Benzocaine/Menthol (Cepacol Lozenge -) 1 each MM PRN PRN PRN Reason: SORE THROAT Budesonide/Formoterol Fumarate (Symbicort 160/4.5mcg -) 2 puff IH BID [facility] Last Admin: 02/01/18 11:06 Dose: 2 puff Docusate Sodium (Colace -) 300 mg PO HS [facility] Last Admin: 01/31/18 21:09 Dose: Not Given Haloperidol (Haldol Injection (Fast Acting) -) 5 mg IM Q4H PRN PRN Reason: AGITATION Ceftriaxone Sodium 2 gm/ (Dextrose) 100 mls @ 200 mls/hr IVPB DAILY [facility]; Protocol Last Admin: 02/01/18 09:58 Dose: 200 mls/hr Daptomycin 500 mg/ Sodium (Chloride) 50 mls @ 50 mls/hr IVPB DAILY [facility]; Protocol Last Admin: 02/01/18 11:06 Dose: 50 mls/hr Nystatin (Mycostatin Cream -) 1 applic TP BID [facility] Last Admin: 02/01/18 10:04 Dose: 1 applic Ondansetron HCl (Zofran Injection) 4 mg IVPUSH Q6H PRN PRN Reason: NAUSEA AND/OR VOMITING Pantoprazole Sodium (Protonix -) 40 mg PO DAILY [facility] Last Admin: 02/01/18 09:57 Dose: 40 mg Polyethylene Glycol (Miralax (For Daily Use) -) 17 gm PO BID [facility] Last Admin: 02/01/18 10:01 Dose: 17 grams Rifampin (Rifadin -) 300 mg PO BID [facility] Last Admin: 02/01/18 10:00 Dose: 300 mg Senna (Senna -) 2 tab PO [facility] Last Admin: 01/31/18 21:08 Dose: Not Given Trazodone HCl (Desyrel -) 150 mg PO [facility] Last Admin: 01/31/18 21:09 Dose: 150 mg - Objective Vital Signs: Vital Signs Temperature 99 F 02/01/18 06:47 Pulse Rate 83 02/01/18 06:47 Respiratory Rate 20 02/01/18 06:47 Blood Pressure 133/54 L 02/01/18 06:47 O2 Sat by Pulse Oximetry (%) 99 01/29/18 09:45 Constitutional: Yes: Well Nourished, Calm Eyes: Yes: WNL HENT: Yes: WNL Neck: Yes: WNL Cardiovascular: Yes: Regular Rate and Rhythm, S1, S2 Respiratory: Yes: Rhonchi (few rhonchi) Gastrointestinal: Yes: Normal Bowel Sounds, Soft Extremities: Yes: WNL Edema: No Labs: CBC, BMP 02/01/18 09:30 02/01/18 09:30 Assessment/Plan A/P Lumbar Compression Fractures s/p T12-L4 Laminectomies/T9-pelvis instrumentation/T9-S1 posterior lateral arthrodesis Acute COPD Exacerbation improved Chronic Hypoxic Respiratory Failure Pneumonia Back Wound Infection MRSA Bacteremia Anemia - ABX per ID - inhaled bronchodilators standing and PRN - pain control - incentive spirometry - O2 to keep SpO2 >90% - PO as tolerated - bowel regimen - rehab/PT - DVT prophylaxis Dr Hansen
--- NOTE | 2018-02-01 14:52 | PN ---
Progress Note (short form) - Note Progress Note: Markedly improved Did stand and took a few steps. C/O incisional pain No leg pain. Wound Dry except for small eschar in the proximal area of the wound. Drying and appears superficial. No erythema. Neuro at baseline. Vitals as per chart all reviewed CVS Stable RESP Endobronchial secretions ABD Soft passing stool ASSESS Making progress PLAN PT Mobilize Nutrition Nursing D/C planning
--- NOTE | 2018-02-01 19:19 | PN ---
Physical Exam: SUBJECTIVE: Patient seen and examined at bedside this morning. No new complaints , No over night events. OBJECTIVE: Vital Signs Period Temp Pulse Resp BP Sys/Hyman Pulse Ox Last 24 Hr -99.0 F-99 F 83-85 20-20 129-139/54-80 Intake & Output 01/31/18 02/01/18 02/01/18 23:59 11:59 23:59 Intake Total 400 300 200 Output Total 700 200 400 Balance -300 100 -200 Intake: IVPB 150 Oral 250 300 200 Output: Urine 700 200 400 Reyes 700 200 400 Other: Voiding Method Indwelling Catheter Indwelling Catheter Indwelling Catheter Bowel Movement No No Body Mass Index (BMI) 23.1 GENERAL: A&Ox3, NAD HEAD: NCAT ENT: Oropharynx clear without exudates, moist mucous membranes. NECK: No JVD LUNGS: Unable to assess posterior breath sounds, Anterior Breath sounds are clear to auscultation bilaterally HEART: Regular rate and rhythm, S1, S2 without murmur ABDOMEN: Soft, nontender, nondistended, + bowel sounds : Reyes draining yellow urine EXTREMITIES: 2+ pulses, no edema Laboratory Results - last 24 hr 02/01/18 02/01/18 09:30 09:30 WBC 7.5 RBC 3.06 L Hgb 8.3 L Hct 26.5 L MCV 86.6 MCH 27.2 MCHC 31.4 L RDW 14.7 Plt Count 313 D MPV 7.4 L Absolute Neuts (auto) 5.0 Neutrophils % 66.7 Lymphocytes % 20.1 D Monocytes % 9.2 Eosinophils % 3.6 Basophils % 0.4 Nucleated RBC % 0 Sodium 135 L Potassium 3.9 Chloride 104 Carbon Dioxide 24 Anion Gap 7 L BUN 15 Creatinine 0.7 Creat Clearance w eGFR > 60 Random Glucose 77 Calcium 8.4 L Phosphorus 2.8 Magnesium 2.2 Total Bilirubin 0.3 AST 12 L ALT 11 L Alkaline Phosphatase 97 Total Protein 5.2 L Albumin 1.8 L Microbiology 01/27/18 06:30 Blood - Peripheral Venous Blood Culture - Final NO GROWTH AFTER 5 DAYS INCUBATION 01/27/18 06:00 Blood - Peripheral Venous Blood Culture - Final NO GROWTH AFTER 5 DAYS INCUBATION 01/23/18 07:10 Wound-Other Gram Stain - Final 01/23/18 07:10 Wound-Other Wound Culture - Final Escherichia Coli 01/20/18 15:30 Back Gram Stain - Final 01/20/18 15:30 Back Wound Culture - Final S Aureus 01/20/18 09:50 Wound-Other Gram Stain - Final 01/20/18 09:50 Wound-Other Wound Culture - Final S Aureus 01/17/18 19:35 Abscess Gram Stain - Final 01/17/18 19:35 Abscess Wound Culture - Final Mr S Aureus 01/17/18 19:38 Tissue-Other Gram Stain - Final 01/17/18 19:38 Tissue-Other Tissue Culture - Final Staphylococcus Species 01/17/18 19:38 Tissue-Other Anaerobic Culture - Final 01/17/18 19:34 Abscess Gram Stain - Final 01/17/18 19:34 Abscess Wound Culture - Final S Aureus 01/15/18 09:00 Blood - Peripheral Venous Blood Culture - Final NO GROWTH AFTER 5 DAYS INCUBATION 01/15/18 06:30 Blood - Peripheral Venous Blood Culture - Final NO GROWTH AFTER 5 DAYS INCUBATION 01/12/18 23:40 Blood - Peripheral Venous Blood Culture - Final S Aureus 01/12/18 23:40 Blood - Peripheral Venous Blood Culture - Final S Aureus 01/10/18 19:00 Blood - Peripheral Venous Blood Culture - Final S Aureus 01/10/18 18:00 Blood - Peripheral Venous Blood Culture - Final S Aureus 01/10/18 15:00 Urine - Urine - Catheterized Urine Culture - Final Escherichia Coli Active Medications Acetaminophen (Tylenol -) 1,000 mg PO Q6H PRN PRN Reason: PAIN LEVEL 1 - 3 Last Admin: 02/01/18 12:30 Dose: 1,000 mg Albuterol Sulfate (Ventolin 0.083% Nebulizer Soln -) 1 amp NEB Q4H PRN PRN Reason: SHORT OF BREATH/WHEEZING Albuterol/Ipratropium (Duoneb -) 1 amp NEB RTID [facility] Last Admin: 02/01/18 13:45 Dose: 1 amp Amino Acids (Prosource No Carb Liquid Pkt) 30 ml PO BID@0800,1730 [facility] Last Admin: 02/01/18 17:30 Dose: 30 ml Benzocaine/Menthol (Cepacol Lozenge -) 1 each MM PRN PRN PRN Reason: SORE THROAT Budesonide/Formoterol Fumarate (Symbicort 160/4.5mcg -) 2 puff IH BID [facility] Last Admin: 02/01/18 11:06 Dose: 2 puff Docusate Sodium (Colace -) 300 mg PO [facility] Last Admin: 01/31/18 21:09 Dose: Not Given Haloperidol (Haldol Injection (Fast Acting) -) 5 mg IM Q4H PRN PRN Reason: AGITATION Ceftriaxone Sodium 2 gm/ (Dextrose) 100 mls @ 200 mls/hr IVPB DAILY [facility]; Protocol Last Admin: 02/01/18 09:58 Dose: 200 mls/hr Daptomycin 500 mg/ Sodium (Chloride) 50 mls @ 50 mls/hr IVPB DAILY [facility]; Protocol Last Admin: 02/01/18 11:06 Dose: 50 mls/hr Nystatin (Mycostatin Cream -) 1 applic TP BID [facility] Last Admin: 02/01/18 10:04 Dose: 1 applic Ondansetron HCl (Zofran Injection) 4 mg IVPUSH Q6H PRN PRN Reason: NAUSEA AND/OR VOMITING Pantoprazole Sodium (Protonix -) 40 mg PO DAILY [facility] Last Admin: 02/01/18 09:57 Dose: 40 mg Polyethylene Glycol (Miralax (For Daily Use) -) 17 gm PO BID [facility] Last Admin: 02/01/18 10:01 Dose: 17 grams Rifampin (Rifadin -) 300 mg PO BID [facility] Last Admin: 02/01/18 10:00 Dose: 300 mg Senna (Senna -) 2 tab PO [facility] Last Admin: 01/31/18 21:08 Dose: Not Given Trazodone HCl (Desyrel -) 150 mg PO [facility] Last Admin: 01/31/18 21:09 Dose: 150 mg IMAGING: - Fluoroscopy: Multiple spot radiographs of the lumbar spine obtained in the OR during a posterior fusion procedure are submitted. - CXR (01/04): There is no evidence of vascular congestive changes, pneumonia, pneumothorax, or large pleural effusion. - CXR (01/10): Since the prior study of 01/04/2018 at 1106 hours, there is new atelectasis or infiltrate at the left base. The remainder the study is unchanged. - US Abdomen: Mild hepatomegaly. Moderately distended gallbladder without evidence of cholelithiasis or acute pathology. AAA with stenting. - Echo: LVEF 60-65%, No regional wall motion abnormalities, Trace Pulmonic valve regurg, No pericardial effusion ASSESSMENT/PLAN: 82 y/o M w/ PMHx COPD, chronic urinary retention, aortic aneurysm admitted to ICU s/p lumbar Sx complicated by MRSA infection of hardware, bacteremia, UTI PNA 1. Sepsis -Secondary to UTI, PNA, and Surgical Wound Infection with MRSA -Remains Afebrile, No Leukocytosis -UA (01/10): 211 WBC, 3+ LE -CXR (01/10): New atelectasis or infiltrate at the left base -Echo noted above -S/P incision, drainage, washout of deep thoracic and lumbar spine (01/17) and washout of an infected thoracic/lumber spinal incision S/P posterior fusion with wound vac placement (01/20) -Blood and Urine Cx noted above -Wound Cx: Escherichia Coli -ID Consulted, Appreciate rec's, Will follow weekly esr, crp, cpk; Pt will require custodial abx (6-8 weeks) and lifelong suppressive abx -Continue Daptomycin, Rifampin (Started on 01/23), Ceftriaxone (started on 01/30) -Completed Zosyn dose (Started on 01/26, completed 01/30) -Tylenol 1,000 mg PO Q6H 2. Lumbar Spinal Stenosis with Lumbar compression fx and kyphosis -s/p T12-L4 laminectomies, T9-pelvis posterior instrumentation, T9-S1 posterolateral arthrodesis (01/03) -s/p posterior fusion with wound vac placement (01/20), Wound vac removed (01/27) -POD#8 s/p thoracolumbar wound debridement with lavage and complex closure -Physical therapy requested, Max distance traveled 5ft -Continue Incentive Spirometry 3. COPD exacerbation -resolved -Continue Symbicort, Duonebs, Oxygen, Chest PT -Pulmonology consulted, Appreciate rec's, will add on LAMA at discharge 4. Normocytic Anemia -Hgb holding at 8.3 -Continue to hold IVF -s/p 3 pRBC units transfused 5. Chronic urinary retention -Patient self-caths at home -Reyes catheter present at this time 6. Constipation -Likely due to Opiate use s/p spinal surgery -Continue colace, senna, and miralax 7. FEN -PO Fluids -Lytes wnl -Regular diet 8. PPx -DVT: SCDs -GI: Protonix, Senna/colace, Miralax Dispo: D/C Planning as per Dr. Roberts Visit type - Emergency Visit Emergency Visit: Yes ED Registration Date: 01/03/18 Care time: The patient presented to the Emergency Department on the above date and was hospitalized for further evaluation of their emergent condition. - New Patient This patient is new to me today: Yes Date on this admission: 02/01/18 - Critical Care Critical Care patient: No
--- NOTE | 2018-02-01 19:56 | PN ---
Teaching Attending Note Name of Resident: Jhonatan Mesa ATTENDING PHYSICIAN STATEMENT I saw and evaluated the patient. I reviewed the resident's note and discussed the case with the resident. I agree with the resident's findings and plan as documented. SUBJECTIVE: no fever or chills. pain in back. no weakness OBJECTIVE: NAD Cv : RRR Lungs: CATB ext : 1+ pedal edema NEuro of LE : strength 5/5 in hip flexion . 4/5 knee flexion and extention. 5/ 5 ankle dorsiflexion and plantar flexion . sensation NL. 2+ knee jerk b/l ASSESSMENT AND PLAN: This is an 82 year old man a history of COPD, chronic urinary retention, lumbar compression fractures with spinal stenosis who was admitted for lumbar spine surgery. 1- s/p laminectomy T12-L4 2- MRSA bacteremia 3- UTI 4- Infected surgical wound 5- infected hard wear 6- COPD 7- anemia plan : - cont Abx - PT - last blood cx neg - cont nebs and inhaler - follow Hb - bowel regimen dispo : will start looking for NH placement
[2018-02-01] MEDS: SENNOSIDES 8.6MG TABLET (FP) PO SCH (21:40)
[2018-02-01] MEDS: DOCUSATE SODIUM 100 MG CAPSULE (FP) PO SCH (21:40)
[2018-02-01] MEDS: traZODone HCL 50 MG TABLET (FP) PO SCH (21:41)
[2018-02-02 06:27] LABS: URINE APPEARANCE CLEAR; URINE BILIRUBIN NEGATIVE (<2.0 mg/dL); URINE COLOR AMBER; URINE GLUCOSE (UA) NEGATIVE (NEGATIVE); URINE KETONE NEGATIVE (NEGATIVE); URINE LEUK ESTERASE NEGATIVE (NEGATIVE); URINE NITRITE NEGATIVE (NEGATIVE); URINE PROTEIN NEGATIVE (NEGATIVE); URINE UROBILINOGEN NEGATIVE mg/dL (0.2-1.0)
[2018-02-02 07:00] LABS: RBC 3.21 M/mm3 (4.00-5.60); WHITE BLOOD COUNT 7.3 K/mm3 (4.0-10.0)
[2018-02-02 07:01] LABS: BASO % 0.3 % (0-2.0); EOS % 4.7 % (0-4.5); HEMATOCRIT 27.8 % (35.4-49); HEMOGLOBIN 8.9 GM/dL (11.7-16.9); LYMPH % 16.2 % (8-40); MCH 27.7 pg (25.7-33.7); MCHC 31.9 g/dl (32.0-35.9); MEAN CELL VOLUME 86.7 fl (80-96); MEAN PLT VOLUME 7.4 fl (7.5-11.1); NEUT % 70.8 % (42.8-82.8); PLATELET COUNT 335 K/MM3 (134-434); RDW 14.8 % (11.9-15.9)
[2018-02-02 07:35] LABS: ANION GAP 7 MMOL/L (8-16); BLOOD UREA NITROGEN 16 mg/dL (7-18); CALCIUM 8.5 mg/dL (8.5-10.1); CHLORIDE 102 mmol/L (98-107); CO2 27 mmol/L (21-32); CREATININE 0.8 mg/dL (0.55-1.3); GLUCOSE,RANDOM 71 mg/dL (74-106); POTASSIUM 3.7 mmol/L (3.5-5.1); SODIUM 136 mmol/L (136-145)
[2018-02-02] MEDS: ALBUTEROL SO4 2.5/IPRATROPIUM 0.5 INH SOL 3 ML VIAL.NEB. NEB SCH ×3 (07:40→20:59)
[2018-02-02 09:10] LABS: EPI CELLS RARE /HPF (FEW); URINE BACTERIA FEW /hpf (NONE SEEN); URINE MUCUS RARE; YEAST FEW
[2018-02-02] MEDS ORDERED: DEXTROSE 5%-WATER 100 ML IVPB ONE (09:14)
[2018-02-02] MEDS: ACETAMINOPHEN 500 MG TABLET (FP) PO PRN ×2 (10:43→22:02)
[2018-02-02] MEDS: PANTOPRAZOLE 40 MG TABLET (FP) PO SCH (10:44)
[2018-02-02] MEDS: NYSTATIN 100,000 UNIT/GM TOPICAL CREAM 15 GM TUBE TP SCH ×2 (10:44→22:11)
[2018-02-02] MEDS: CEFTRIAXONE 2 GM in DEXTROSE 5%-WATER 100 ML IVPB SCH (10:44)
[2018-02-02] MEDS: AMINO ACIDS/PROTEIN HYDROLYS 30 ML LIQUID.PKT PO SCH ×2 (10:44→17:18)
--- NOTE | 2018-02-02 10:52 | PN ---
Progress Note (short form) - Note Progress Note: Resting in NAD. No shortness of breath or chest pain. No acute events overnight. CXR: No gross change or new process. Intake & Output 01/28/18 01/29/18 01/30/18 01/31/18 23:59 23:59 23:59 23:59 Intake Total 250 790 750 Output Total 5135 119 7774 450 Balance -1150 -10 -500 -450 Last Vital Signs Temp Pulse Resp BP Pulse Ox 99.6 F 88 20 140/60 99 01/31/18 09:16 01/31/18 09:16 01/31/18 09:16 01/31/18 09:16 01/29/18 09:45 Active Medications Acetaminophen (Tylenol -) 1,000 mg PO Q6H PRN PRN Reason: PAIN LEVEL 1 - 3 Last Admin: 01/30/18 19:09 Dose: 1,000 mg Albuterol Sulfate (Ventolin 0.083% Nebulizer Soln -) 1 amp NEB Q4H PRN PRN Reason: SHORT OF BREATH/WHEEZING Albuterol/Ipratropium (Duoneb -) 1 amp NEB RTID [facility] Last Admin: 01/30/18 20:01 Dose: 1 amp Amino Acids (Prosource No Carb Liquid Pkt) 30 ml PO BID@0800,1730 [facility] Last Admin: 01/31/18 08:18 Dose: 30 ml Benzocaine/Menthol (Cepacol Lozenge -) 1 each MM PRN PRN PRN Reason: SORE THROAT Budesonide/Formoterol Fumarate (Symbicort 160/4.5mcg -) 2 puff IH BID [facility] Last Admin: 01/31/18 09:32 Dose: 2 puff Docusate Sodium (Colace -) 300 mg PO HS [facility] Last Admin: 01/30/18 21:12 Dose: Not Given Haloperidol (Haldol Injection (Fast Acting) -) 5 mg IM Q4H PRN PRN Reason: AGITATION Ceftriaxone Sodium 2 gm/ (Dextrose) 100 mls @ 200 mls/hr IVPB DAILY [facility]; Protocol Last Admin: 01/31/18 09:32 Dose: 200 mls/hr Daptomycin 500 mg/ Sodium (Chloride) 50 mls @ 50 mls/hr IVPB DAILY [facility]; Protocol Nystatin (Mycostatin Cream -) 1 applic TP BID [facility] Last Admin: 01/31/18 09:31 Dose: 1 applic Ondansetron HCl (Zofran Injection) 4 mg IVPUSH Q6H PRN PRN Reason: NAUSEA AND/OR VOMITING Pantoprazole Sodium (Protonix -) 40 mg PO DAILY [facility] Last Admin: 01/31/18 09:31 Dose: 40 mg Polyethylene Glycol (Miralax (For Daily Use) -) 17 gm PO BID [facility] Last Admin: 01/31/18 09:31 Dose: Not Given Rifampin (Rifadin -) 300 mg PO BID [facility] Last Admin: 01/31/18 09:32 Dose: 300 mg Senna (Senna -) 2 tab PO [facility] Last Admin: 01/30/18 21:12 Dose: Not Given Trazodone HCl (Desyrel -) 150 mg PO [facility] Last Admin: 01/30/18 21:12 Dose: 150 mg Gen: NAD at rest Heart: RRR Lung: scattered rhonchi Abd: soft, nontender Ext: no edema Laboratory Results - last 24 hr 02/02/18 02/02/18 02/02/18 06:00 06:30 06:30 WBC 7.3 RBC 3.21 L Hgb 8.9 L Hct 27.8 L MCV 86.7 MCH 27.7 MCHC 31.9 L RDW 14.8 Plt Count 335 MPV 7.4 L Absolute Neuts (auto) 5.1 Neutrophils % 70.8 Lymphocytes % 16.2 Monocytes % 8.0 Eosinophils % 4.7 H Basophils % 0.3 Nucleated RBC % 0 Sodium 136 Potassium 3.7 Chloride 102 Carbon Dioxide 27 Anion Gap 7 L BUN 16 Creatinine 0.8 Creat Clearance w eGFR > 60 Random Glucose 71 L Calcium 8.5 Urine Color Charu Urine Appearance Clear Urine pH 6.0 Ur Specific Burton 1.012 Urine Protein Negative Urine Glucose (UA) Negative Urine Ketones Negative Urine Blood 1+ H Urine Nitrite Negative Urine Bilirubin Negative Urine Urobilinogen Negative Ur Leukocyte Esterase Negative Urine WBC (Auto) 3 Urine RBC (Auto) 2 Ur Epithelial Cells Rare Urine Bacteria Few Urine Mucus Rare Urine Yeast Few A/P Lumbar Compression Fractures s/p T12-L4 Laminectomies/T9-pelvis instrumentation/T9-S1 posterior lateral arthrodesis Acute COPD Exacerbation improved Chronic Hypoxic Respiratory Failure Pneumonia Back Wound Infection MRSA Bacteremia Anemia - ABX per ID - inhaled bronchodilators standing and PRN - pain control - incentive spirometry - O2 to keep SpO2 >90% - PO as tolerated - bowel regimen - rehab/PT - DVT prophylaxis - No Pulmonary contraindication for D/C planning: should add on LAMA at discharge Dr Gross
[2018-02-02] MEDS: POLYETHYLENE GLYCOL 3350 119 GM BTL PO SCH ×2 (11:48→22:07)
[2018-02-02] MEDS: BUDESONIDE/FORMETEROL FUMARATE 160/4.5 mcg INHALER IH SCH ×2 (11:48→22:07)
[2018-02-02] MEDS: RIFAMPIN 300 MG CAPSULE PO SCH ×2 (11:48→22:01)
[2018-02-02] MEDS ORDERED: PT OWN MED DRAWER 7, Y5N ONE ×2 (12:17→21:52)
[2018-02-02] MEDS: DAPTOMYCIN 500 MG in SODIUM CHLORIDE 50 ML IVPB SCH (12:54)
--- NOTE | 2018-02-02 15:06 | PN ---
Teaching Attending Note Name of Resident: Zabrina Sullivan ATTENDING PHYSICIAN STATEMENT I saw and evaluated the patient. I reviewed the resident's note and discussed the case with the resident. I agree with the resident's findings and plan as documented. SUBJECTIVE: No fever or chills . no back pain if not moving . fever last night OBJECTIVE: NAD CV: RRR Lungs: CATB Ext : 1+ pedal edema Skin: mid line surgical wound over the T and L spine . open area in lower thoracic spine, with darker discoloration . stage 2 , 2 cm longitudinal decub between buttocks with slough . ASSESSMENT AND PLAN: This is an 82 year old man a history of COPD, chronic urinary retention, lumbar compression fractures with spinal stenosis who was admitted for lumbar spine surgery. 1- s/p laminectomy T12-L4 2- MRSA bacteremia 3- E coli UTI 4- Infected surgical wound 5- infected hard wear 6- fever 7- anemia 8- COPD 9- chronic urinary retention plan: - unclear of source of fever. cxray clear , UA clean . decub does not look infected. check US to r/o DVT . if fever recurs, will repeat blood cx . - cont Abx. dapto, rifampin and ceftriaxone - cont nebs and inhaler - follow Hb - bowel regimen - holder was change 9 days ago, will change monthly - f/u with urology as out pt dispo : to SNF if no recurrence of fever
[2018-02-02] MEDS: HEPARIN NA (PORCINE) 5,000 UNITS/ML 1ML VIAL SQ SCH ×2 (15:27→22:00)
--- NOTE | 2018-02-02 16:07 | PN ---
Progress Note (short form) - Note Progress Note: alert in bed low grade temp last night, cultures sent no diarrhea walked today Vital Signs Period Temp Pulse Resp BP Sys/Hyman Pulse Ox Last 24 Hr 98.4 F-100.4 F 81-91 18-22 118-154/58-83 iv site, no erythema or tenderness cor-rrr lungs clear abd soft,nt ext no edema holder unable to look at back-dressing just done by nurse CBC, BMP 02/02/18 06:30 02/02/18 06:30 cxray no infiltrate ua negative a/p low grade temp- cultures pending, for duplex of legs, ua negative cxray no pneumonia MRSA bacteremia-negative blood cultures 01/15 MRSA surgical wound infection infected hardware- s/p washout 01/17-MRSA- wound culture 01/23 with ecoli s/p laminectomy T12 to L4 -01/03 continue ceftriaxone continue daptomycin/rifampin will require penitentiary abx minimum 6 to 8 weeks and lifelong suppressive antibiotics with bactrim or minocycline to follow- repeat esr/crp for duplex of legs d/w hospitalist Problem List - Problems (1) Fever Code(s): R50.9 - FEVER, UNSPECIFIED (2) Status post laminectomy Code(s): Z98.890 - OTHER SPECIFIED POSTPROCEDURAL STATES
--- NOTE | 2018-02-02 19:12 | PN ---
Physical Exam: SUBJECTIVE: Patient seen and examined at bedside this morning. No new complaints , No over night events. OBJECTIVE: Vital Signs Period Temp Pulse Resp BP Sys/Hyman Pulse Ox Last 24 Hr 98.8 F-100.4 F 81-91 18-22 118-154/70-83 Intake & Output 02/01/18 02/02/18 02/02/18 23:59 11:59 23:59 Intake Total 450 300 400 Output Total 900 400 500 Balance -450 -100 -100 Intake: IV 200 RFA #22 200 Oral 450 300 200 Output: Urine 900 400 500 Reyes 900 400 500 Other: Voiding Method Indwelling Catheter Indwelling Catheter Indwelling Catheter Bowel Movement No No Body Mass Index (BMI) 23.1 GENERAL: A&Ox3, NAD HEAD: NCAT ENT: Oropharynx clear without exudates, moist mucous membranes. NECK: No JVD LUNGS: Clear to auscultation bilaterally HEART: Regular rate and rhythm, S1, S2 without murmur ABDOMEN: Soft, nontender, nondistended, + bowel sounds : Reyes draining yellow/orange urine EXTREMITIES: 2+ pulses, 1+ edema SKIN: Lower thoracic spine surgical wound slightly open with surrounding discoloration, No active drainage. Stage 2 decubitus ulcer between gluteal folds with No active discharge. Laboratory Results - last 24 hr 02/02/18 02/02/18 02/02/18 06:00 06:30 06:30 WBC 7.3 RBC 3.21 L Hgb 8.9 L Hct 27.8 L MCV 86.7 MCH 27.7 MCHC 31.9 L RDW 14.8 Plt Count 335 MPV 7.4 L Absolute Neuts (auto) 5.1 Neutrophils % 70.8 Lymphocytes % 16.2 Monocytes % 8.0 Eosinophils % 4.7 H Basophils % 0.3 Nucleated RBC % 0 Sodium 136 Potassium 3.7 Chloride 102 Carbon Dioxide 27 Anion Gap 7 L BUN 16 Creatinine 0.8 Creat Clearance w eGFR > 60 Random Glucose 71 L Calcium 8.5 Urine Color Charu Urine Appearance Clear Urine pH 6.0 Ur Specific Bussey 1.012 Urine Protein Negative Urine Glucose (UA) Negative Urine Ketones Negative Urine Blood 1+ H Urine Nitrite Negative Urine Bilirubin Negative Urine Urobilinogen Negative Ur Leukocyte Esterase Negative Urine WBC (Auto) 3 Urine RBC (Auto) 2 Ur Epithelial Cells Rare Urine Bacteria Few Urine Mucus Rare Urine Yeast Few Microbiology 01/27/18 06:30 Blood - Peripheral Venous Blood Culture - Final NO GROWTH AFTER 5 DAYS INCUBATION 01/27/18 06:00 Blood - Peripheral Venous Blood Culture - Final NO GROWTH AFTER 5 DAYS INCUBATION 01/23/18 07:10 Wound-Other Gram Stain - Final 01/23/18 07:10 Wound-Other Wound Culture - Final Escherichia Coli 01/20/18 15:30 Back Gram Stain - Final 01/20/18 15:30 Back Wound Culture - Final S Aureus 01/20/18 09:50 Wound-Other Gram Stain - Final 01/20/18 09:50 Wound-Other Wound Culture - Final S Aureus 01/17/18 19:35 Abscess Gram Stain - Final 01/17/18 19:35 Abscess Wound Culture - Final S Aureus 01/17/18 19:38 Tissue-Other Gram Stain - Final 01/17/18 19:38 Tissue-Other Tissue Culture - Final Staphylococcus Species 01/17/18 19:38 Tissue-Other Anaerobic Culture - Final 01/17/18 19:34 Abscess Gram Stain - Final 01/17/18 19:34 Abscess Wound Culture - Final S Aureus 01/15/18 09:00 Blood - Peripheral Venous Blood Culture - Final NO GROWTH AFTER 5 DAYS INCUBATION 01/15/18 06:30 Blood - Peripheral Venous Blood Culture - Final NO GROWTH AFTER 5 DAYS INCUBATION 01/12/18 23:40 Blood - Peripheral Venous Blood Culture - Final S Aureus 01/12/18 23:40 Blood - Peripheral Venous Blood Culture - Final S Aureus 01/10/18 19:00 Blood - Peripheral Venous Blood Culture - Final S Aureus 01/10/18 18:00 Blood - Peripheral Venous Blood Culture - Final S Aureus 01/10/18 15:00 Urine - Urine - Catheterized Urine Culture - Final Escherichia Coli Active Medications Acetaminophen (Tylenol -) 1,000 mg PO Q6H PRN PRN Reason: PAIN LEVEL 1 - 3 Last Admin: 02/02/18 10:43 Dose: 1,000 mg Albuterol Sulfate (Ventolin 0.083% Nebulizer Soln -) 1 amp NEB Q4H PRN PRN Reason: SHORT OF BREATH/WHEEZING Albuterol/Ipratropium (Duoneb -) 1 amp NEB RTID SABINA Last Admin: 02/02/18 14:15 Dose: Not Given Amino Acids (Prosource No Carb Liquid Pkt) 30 ml PO BID@0800,1730 [facility] Last Admin: 02/02/18 17:18 Dose: 30 ml Benzocaine/Menthol (Cepacol Lozenge -) 1 each MM PRN PRN PRN Reason: SORE THROAT Budesonide/Formoterol Fumarate (Symbicort 160/4.5mcg -) 2 puff IH BID [facility] Last Admin: 02/02/18 11:48 Dose: 2 puff Docusate Sodium (Colace -) 300 mg PO HS [facility] Last Admin: 02/01/18 21:40 Dose: 300 mg Haloperidol (Haldol Injection (Fast Acting) -) 5 mg IM Q4H PRN PRN Reason: AGITATION Heparin Sodium (Porcine) (Heparin -) 5,000 unit SQ TID [facility] Last Admin: 02/02/18 15:27 Dose: 5,000 unit Ceftriaxone Sodium 2 gm/ (Dextrose) 100 mls @ 200 mls/hr IVPB DAILY [facility]; Protocol Last Admin: 02/02/18 10:44 Dose: 200 mls/hr Daptomycin 500 mg/ Sodium (Chloride) 50 mls @ 50 mls/hr IVPB DAILY [facility]; Protocol Last Admin: 02/02/18 12:54 Dose: 50 mls/hr Nystatin (Mycostatin Cream -) 1 applic TP BID [facility] Last Admin: 02/02/18 10:44 Dose: 1 applic Ondansetron HCl (Zofran Injection) 4 mg IVPUSH Q6H PRN PRN Reason: NAUSEA AND/OR VOMITING Pantoprazole Sodium (Protonix -) 40 mg PO DAILY [facility] Last Admin: 02/02/18 10:44 Dose: 40 mg Polyethylene Glycol (Miralax (For Daily Use) -) 17 gm PO BID [facility] Last Admin: 02/02/18 11:48 Dose: 17 grams Rifampin (Rifadin -) 300 mg PO BID [facility] Last Admin: 02/02/18 11:48 Dose: 300 mg Senna (Senna -) 2 tab PO [facility] Last Admin: 02/01/18 21:40 Dose: 2 tab Trazodone HCl (Desyrel -) 150 mg PO HS [facility] Last Admin: 02/01/18 21:41 Dose: 150 mg IMAGING: - Fluoroscopy: Multiple spot radiographs of the lumbar spine obtained in the OR during a posterior fusion procedure are submitted. - CXR (01/04): There is no evidence of vascular congestive changes, pneumonia, pneumothorax, or large pleural effusion. - CXR (01/10): Since the prior study of 01/04/2018 at 1106 hours, there is new atelectasis or infiltrate at the left base. The remainder the study is unchanged. - CXR (02/02): No acute pathology - US Abdomen: Mild hepatomegaly. Moderately distended gallbladder without evidence of cholelithiasis or acute pathology. AAA with stenting. - Echo: LVEF 60-65%, No regional wall motion abnormalities, Trace Pulmonic valve regurg, No pericardial effusion ASSESSMENT/PLAN: 82 y/o M w/ PMHx COPD, chronic urinary retention, aortic aneurysm admitted to ICU s/p lumbar Sx complicated by MRSA infection of hardware, bacteremia, UTI PNA 1. Fever -Febrile to 100.4 overnight however no Leukocytosis, Was given Tylenol -Blood cultures pending -UA Noted above -CXR (02/02): No acute pathology -DUPLEX b/l lower extremity to r/o DVT as source -C. Diff culture pending -Low threshold to cx if fevers reoccur -Already on ABx, Continue 2. Sepsis -Secondary to UTI, PNA, and Surgical Wound Infection with MRSA -UA (01/10): 211 WBC, 3+ LE -CXR (01/10): New atelectasis or infiltrate at the left base -Echo noted above -S/P incision, drainage, washout of deep thoracic and lumbar spine (01/17) and washout of an infected thoracic/lumber spinal incision S/P posterior fusion with wound vac placement (01/20) -Blood and Urine Cx noted above -Wound Cx: Escherichia Coli -ID Consulted, Appreciate rec's, Will follow weekly esr, crp, cpk; Pt will require manager terminal abx (Rifampin PO, Ceftriaxone IV, Daptomycin for 6-8 weeks starting 01/23) and lifelong suppressive abx -Continue Daptomycin, Rifampin (Started on 01/23), Ceftriaxone (started on 01/30) -Completed Zosyn dose (Started on 01/26, completed 01/30) -Tylenol 1,000 mg PO Q6H 3. Lumbar Spinal Stenosis with Lumbar compression fx and kyphosis -s/p T12-L4 laminectomies, T9-pelvis posterior instrumentation, T9-S1 posterolateral arthrodesis (01/03) -s/p posterior fusion with wound vac placement (01/20), Wound vac removed (01/27) -POD#9 s/p thoracolumbar wound debridement with lavage and complex closure -Physical therapy requested -Continue Incentive Spirometry 4. COPD exacerbation -resolved -Continue Symbicort, Duonebs, Oxygen, Chest PT -Pulmonology consulted, Appreciate rec's, will add on LAMA at discharge 5. Normocytic Anemia -Hgb holding at 8.3 -Continue to hold IVF -s/p 3 pRBC units transfused 6. Chronic urinary retention -Patient self-caths at home -Reyes catheter present at this time -Change monthly 7. Constipation -Likely due to Opiate use s/p spinal surgery -Continue colace, senna, and miralax 8. FEN -PO Fluids -Lytes wnl -Regular diet 9. PPx -DVT: SCDs -GI: Protonix, Senna/colace, Miralax Dispo: D/C Planning as per Dr. Roberts Visit type - Emergency Visit Emergency Visit: Yes ED Registration Date: 01/03/18 Care time: The patient presented to the Emergency Department on the above date and was hospitalized for further evaluation of their emergent condition. - New Patient This patient is new to me today: No - Critical Care Critical Care patient: No
[2018-02-02] MEDS: DOCUSATE SODIUM 100 MG CAPSULE (FP) PO SCH ×2 (22:00→22:11)
[2018-02-02] MEDS: SENNOSIDES 8.6MG TABLET (FP) PO SCH (22:01)
[2018-02-02] MEDS: traZODone HCL 50 MG TABLET (FP) PO SCH (22:01)
[2018-02-03] MEDS: HEPARIN NA (PORCINE) 5,000 UNITS/ML 1ML VIAL SQ SCH ×4 (05:35→21:43)
[2018-02-03] MEDS: ALBUTEROL SO4 2.5/IPRATROPIUM 0.5 INH SOL 3 ML VIAL.NEB. NEB SCH (08:02)
[2018-02-03 09:06] LABS: BASO % 0.5 % (0-2.0); EOS % 4.2 % (0-4.5); HEMATOCRIT 26.9 % (35.4-49); HEMOGLOBIN 8.5 GM/dL (11.7-16.9); MCH 27.2 pg (25.7-33.7); MCHC 31.7 g/dl (32.0-35.9); MEAN PLT VOLUME 7.8 fl (7.5-11.1); MONO % 7.3 % (3.8-10.2); PLATELET COUNT 360 K/MM3 (134-434); RBC 3.13 M/mm3 (4.00-5.60); RDW 14.6 % (11.9-15.9); WHITE BLOOD COUNT 7.3 K/mm3 (4.0-10.0)
[2018-02-03] MEDS ORDERED: PT OWN MED DRAWER 7, Y5N ONE (09:37)
[2018-02-03] MEDS ORDERED: DEXTROSE 5%-WATER 100 ML IVPB ONE (09:37)
[2018-02-03] MEDS: AMINO ACIDS/PROTEIN HYDROLYS 30 ML LIQUID.PKT PO SCH ×2 (09:44→17:10)
[2018-02-03] MEDS: RIFAMPIN 300 MG CAPSULE PO SCH ×2 (09:44→21:41)
[2018-02-03] MEDS: PANTOPRAZOLE 40 MG TABLET (FP) PO SCH (09:44)
[2018-02-03] MEDS: CEFTRIAXONE 2 GM in DEXTROSE 5%-WATER 100 ML IVPB SCH (09:44)
[2018-02-03] MEDS: NYSTATIN 100,000 UNIT/GM TOPICAL CREAM 15 GM TUBE TP SCH ×2 (09:46→22:41)
[2018-02-03] MEDS: POLYETHYLENE GLYCOL 3350 119 GM BTL PO SCH ×3 (09:46→21:48)
[2018-02-03] MEDS: BUDESONIDE/FORMETEROL FUMARATE 160/4.5 mcg INHALER IH SCH ×2 (09:47→21:44)
--- NOTE | 2018-02-03 13:05 | PN ---
Progress Note (short form) - Note Progress Note: PULMONARY Resting comfortably Cough mainly nonproductive Using incentive raphael temp spikes intermittently continue afeb now Gen: NAD at rest Heart: RRR Lung: scattered rhonchi Abd: soft, nontender Ext: no edema labs/meds/notes/images reviewed ASSESSMENT AND PLAN: MRSA bacteremia-negative blood cultures 01/15 ecoli UTI surgical wound infection infected hardware- s/p washout [id number] cultures 01/23 COPD s/p ACUTE Exacerbation Chronic Hypoxic Respiratory Failure UTI - inhaled bronchodilators standing and PRN - pain control - incentive spirometry - on antibiotics as per ID - O2 to keep SpO2 >90% - PO as tolerated - DVT prophylaxis Stevenson FERRER MD
--- NOTE | 2018-02-03 14:13 | PN ---
Progress Note (short form) - Note Progress Note: alert in bed stood up with help of pt today Vital Signs Period Temp Pulse Resp BP Sys/Hyman Pulse Ox Last 24 Hr 99.5 F-99.5 F 80-81 18-20 118/74 98 cor-rrr lungs clear abd soft,nt ext no edema incision at the thoracic area has scant drainage- serous no purulence or erythema noted +stage 2 ulcer noted between both buttocks duplex negative CBC, BMP 02/03/18 08:30 02/02/18 06:30 Microbiology 02/02/18 06:10 Blood - Peripheral Venous Blood Culture - Preliminary NO GROWTH OBTAINED AFTER 24 HOURS, INCUBATION TO CONTINUE FOR 4 DAYS. 02/02/18 06:30 Blood - Peripheral Venous Blood Culture - Preliminary NO GROWTH OBTAINED AFTER 24 HOURS, INCUBATION TO CONTINUE FOR 4 DAYS. 01/27/18 06:30 Blood - Peripheral Venous Blood Culture - Final NO GROWTH AFTER 5 DAYS INCUBATION 01/27/18 06:00 Blood - Peripheral Venous Blood Culture - Final NO GROWTH AFTER 5 DAYS INCUBATION 01/23/18 07:10 Wound-Other Gram Stain - Final 01/23/18 07:10 Wound-Other Wound Culture - Final Escherichia Coli 01/20/18 15:30 Back Gram Stain - Final 01/20/18 15:30 Back Wound Culture - Final Mr S Aureus 01/20/18 09:50 Wound-Other Gram Stain - Final 01/20/18 09:50 Wound-Other Wound Culture - Final Mr S Aureus 01/17/18 19:35 Abscess Gram Stain - Final 01/17/18 19:35 Abscess Wound Culture - Final Mr S Aureus 01/17/18 19:38 Tissue-Other Gram Stain - Final 01/17/18 19:38 Tissue-Other Tissue Culture - Final Staphylococcus Species 01/17/18 19:38 Tissue-Other Anaerobic Culture - Final 01/17/18 19:34 Abscess Gram Stain - Final 01/17/18 19:34 Abscess Wound Culture - Final Mr S Aureus 01/15/18 09:00 Blood - Peripheral Venous Blood Culture - Final NO GROWTH AFTER 5 DAYS INCUBATION 01/15/18 06:30 Blood - Peripheral Venous Blood Culture - Final NO GROWTH AFTER 5 DAYS INCUBATION 01/12/18 23:40 Blood - Peripheral Venous Blood Culture - Final Mr S Aureus 01/12/18 23:40 Blood - Peripheral Venous Blood Culture - Final Mr S Aureus 01/10/18 19:00 Blood - Peripheral Venous Blood Culture - Final S Aureus 01/10/18 18:00 Blood - Peripheral Venous Blood Culture - Final S Aureus 01/10/18 15:00 Urine - Urine - Catheterized Urine Culture - Final Escherichia Coli cxray no infiltrate ua negative a/p low grade temp- cultures pending, for duplex of legs, ua negative cxray no pneumonia MRSA bacteremia-negative blood cultures 01/15 MRSA surgical wound infection infected hardware- s/p washout 01/17-MRSA- wound culture 01/23 with ecoli s/p laminectomy T12 to L4 -01/03 continue ceftriaxone continue daptomycin/rifampin will require custodial abx minimum 6 to 8 weeks and lifelong suppressive antibiotics with bactrim or minocycline to follow- local care to sacral ulcer d/w nurse intelligence manager d/w daughter at bedside Problem List - Problems (1) Fever Code(s): R50.9 - FEVER, UNSPECIFIED (2) Status post laminectomy Code(s): Z98.890 - OTHER SPECIFIED POSTPROCEDURAL STATES
[2018-02-03] MEDS: DAPTOMYCIN 500 MG in SODIUM CHLORIDE 50 ML IVPB SCH (14:35)
--- NOTE | 2018-02-03 14:42 | PN ---
Teaching Attending Note Name of Resident: Jhonatan Mesa ATTENDING PHYSICIAN STATEMENT I saw and evaluated the patient. I reviewed the resident's note and discussed the case with the resident. I agree with the resident's findings and plan as documented. SUBJECTIVE: No fever or chills . No abd pain , no cough , no SOB . OBJECTIVE: NAD CV: RRR Lungs: CATB Ext : 1+ pedal edema ASSESSMENT AND PLAN: This is an 82 year old man a history of COPD, chronic urinary retention, lumbar compression fractures with spinal stenosis who was admitted for lumbar spine surgery. 1- S/p laminectomy T12-L4 2- MRSA bacteremia 3- E coli UTI 4- Infected surgical wound 5- infected hard wear 6- fever 7- anemia 8- COPD 9- chronic urinary retention plan: - fever did not recur . no DVT , UTI or PNA identified - cont Abx. dapto, rifampin and ceftriaxone for 6-8 weeks from 01/23 - cont nebs and inhaler - follow Hb - bowel regimen - holder was change 9 days ago, will change monthly - f/u with urology as out pt dispo : pending SNF placement. Medically ready for DC
--- NOTE | 2018-02-03 16:08 | PN ---
Physical Exam: SUBJECTIVE: Patient seen and examined at bedside this morning. No new complaints , No over night events. Temperature reached 100.7 this afternoon. OBJECTIVE: Vital Signs Period Temp Pulse Resp BP Sys/Hyman Pulse Ox Last 24 Hr 99.4 F-99.5 F 80-82 18-20 98 Intake & Output 02/02/18 02/03/18 02/03/18 23:59 11:59 23:59 Intake Total 640 300 Output Total 1100 300 400 Balance -460 0 -400 Intake: IV 200 RFA #22 200 Oral 440 300 Output: Urine 1100 300 400 Reyes 1100 300 400 Other: Voiding Method Indwelling Catheter Indwelling Catheter Bowel Movement No No Yes # Bowel Movements 2 GENERAL: A&Ox3, NAD HEAD: NCAT ENT: Oropharynx clear without exudates, moist mucous membranes. NECK: No JVD LUNGS: Clear to auscultation bilaterally HEART: Regular rate and rhythm, S1, S2 without murmur ABDOMEN: Soft, nontender, nondistended, + bowel sounds : Reyes draining yellow/orange urine EXTREMITIES: 2+ pulses, 1+ edema SKIN: Lower thoracic spine surgical wound slightly open with surrounding discoloration, No active drainage. Stage 2 decubitus ulcer between gluteal folds with No active discharge. Laboratory Results - last 24 hr 02/03/18 02/03/18 02/03/18 08:00 08:00 08:30 WBC 7.3 RBC 3.13 L Hgb 8.5 L Hct 26.9 L MCV 86.0 MCH 27.2 MCHC 31.7 L RDW 14.6 Plt Count 360 MPV 7.8 Absolute Neuts (auto) 5.1 Neutrophils % 70.0 Lymphocytes % 18.0 Monocytes % 7.3 Eosinophils % 4.2 Basophils % 0.5 Nucleated RBC % 0 ESR 83 H C-Reactive Protein 12.7 H Microbiology 02/02/18 06:10 Blood - Peripheral Venous Blood Culture - Preliminary NO GROWTH OBTAINED AFTER 24 HOURS, INCUBATION TO CONTINUE FOR 4 DAYS. 02/02/18 06:30 Blood - Peripheral Venous Blood Culture - Preliminary NO GROWTH OBTAINED AFTER 24 HOURS, INCUBATION TO CONTINUE FOR 4 DAYS. 01/27/18 06:30 Blood - Peripheral Venous Blood Culture - Final NO GROWTH AFTER 5 DAYS INCUBATION 01/27/18 06:00 Blood - Peripheral Venous Blood Culture - Final NO GROWTH AFTER 5 DAYS INCUBATION 01/23/18 07:10 Wound-Other Gram Stain - Final 01/23/18 07:10 Wound-Other Wound Culture - Final Escherichia Coli 01/20/18 15:30 Back Gram Stain - Final 01/20/18 15:30 Back Wound Culture - Final S Aureus 01/20/18 09:50 Wound-Other Gram Stain - Final 01/20/18 09:50 Wound-Other Wound Culture - Final Mr S Aureus 01/17/18 19:35 Abscess Gram Stain - Final 01/17/18 19:35 Abscess Wound Culture - Final Mr S Aureus 01/17/18 19:38 Tissue-Other Gram Stain - Final 01/17/18 19:38 Tissue-Other Tissue Culture - Final Staphylococcus Species 01/17/18 19:38 Tissue-Other Anaerobic Culture - Final 01/17/18 19:34 Abscess Gram Stain - Final 01/17/18 19:34 Abscess Wound Culture - Final S Aureus 01/15/18 09:00 Blood - Peripheral Venous Blood Culture - Final NO GROWTH AFTER 5 DAYS INCUBATION 01/15/18 06:30 Blood - Peripheral Venous Blood Culture - Final NO GROWTH AFTER 5 DAYS INCUBATION 01/12/18 23:40 Blood - Peripheral Venous Blood Culture - Final S Aureus 01/12/18 23:40 Blood - Peripheral Venous Blood Culture - Final S Aureus 01/10/18 19:00 Blood - Peripheral Venous Blood Culture - Final S Aureus 01/10/18 18:00 Blood - Peripheral Venous Blood Culture - Final S Aureus 01/10/18 15:00 Urine - Urine - Catheterized Urine Culture - Final Escherichia Coli Active Medications Acetaminophen (Tylenol -) 1,000 mg PO Q6H PRN PRN Reason: PAIN LEVEL 1 - 3 Last Admin: 02/02/18 22:02 Dose: 1,000 mg Amino Acids (Prosource No Carb Liquid Pkt) 30 ml PO BID@0800,1730 [facility] Last Admin: 02/03/18 09:44 Dose: 30 ml Benzocaine/Menthol (Cepacol Lozenge -) 1 each MM PRN PRN PRN Reason: SORE THROAT Budesonide/Formoterol Fumarate (Symbicort 160/4.5mcg -) 2 puff IH BID [facility] Last Admin: 02/03/18 09:47 Dose: 2 puff Docusate Sodium (Colace -) 300 mg PO HS [facility] Last Admin: 02/02/18 22:11 Dose: Not Given Haloperidol (Haldol Injection (Fast Acting) -) 5 mg IM Q4H PRN PRN Reason: AGITATION Heparin Sodium (Porcine) (Heparin -) 5,000 unit SQ TID [facility] Last Admin: 02/03/18 14:35 Dose: 5,000 unit Ceftriaxone Sodium 2 gm/ (Dextrose) 100 mls @ 200 mls/hr IVPB DAILY [facility]; Protocol Last Admin: 02/03/18 09:44 Dose: 200 mls/hr Daptomycin 500 mg/ Sodium (Chloride) 50 mls @ 50 mls/hr IVPB DAILY [facility]; Protocol Last Admin: 02/03/18 14:35 Dose: 50 mls/hr Nystatin (Mycostatin Cream -) 1 applic TP BID [facility] Last Admin: 02/03/18 09:46 Dose: 1 applic Ondansetron HCl (Zofran Injection) 4 mg IVPUSH Q6H PRN PRN Reason: NAUSEA AND/OR VOMITING Pantoprazole Sodium (Protonix -) 40 mg PO DAILY [facility] Last Admin: 02/03/18 09:44 Dose: 40 mg Polyethylene Glycol (Miralax (For Daily Use) -) 17 gm PO BID [facility] Last Admin: 02/03/18 09:55 Dose: Not Given Rifampin (Rifadin -) 300 mg PO BID [facility] Last Admin: 02/03/18 09:44 Dose: 300 mg Senna (Senna -) 2 tab PO [facility] Last Admin: 02/02/18 22:01 Dose: 2 tab Trazodone HCl (Desyrel -) 150 mg PO [facility] Last Admin: 02/02/18 22:01 Dose: 150 mg IMAGING: - Fluoroscopy: Multiple spot radiographs of the lumbar spine obtained in the OR during a posterior fusion procedure are submitted. - CXR (01/04): There is no evidence of vascular congestive changes, pneumonia, pneumothorax, or large pleural effusion. - CXR (01/10): Since the prior study of 01/04/2018 at 1106 hours, there is new atelectasis or infiltrate at the left base. The remainder the study is unchanged. - CXR (02/02): No acute pathology - US Abdomen: Mild hepatomegaly. Moderately distended gallbladder without evidence of cholelithiasis or acute pathology. AAA with stenting. - Echo: LVEF 60-65%, No regional wall motion abnormalities, Trace Pulmonic valve regurg, No pericardial effusion - DUPLEX: No DVT is identified involving either leg. ASSESSMENT/PLAN: 82 y/o M w/ PMHx COPD, chronic urinary retention, aortic aneurysm admitted to ICU s/p lumbar Sx complicated by MRSA infection of hardware, bacteremia, UTI PNA 1. Fever -Febrile to 100.4 overnight however no Leukocytosis, Was given Tylenol -Blood cultures pending -UA Noted above -CXR (02/02): No acute pathology -DUPLEX negative -C. Diff culture pending -Low threshold to cx if fevers reoccur -Already on ABx, Continue 2. Sepsis -Secondary to UTI, PNA, and Surgical Wound Infection with MRSA -UA (01/10): 211 WBC, 3+ LE -CXR (01/10): New atelectasis or infiltrate at the left base -Echo noted above -S/P incision, drainage, washout of deep thoracic and lumbar spine (01/17) and washout of an infected thoracic/lumber spinal incision S/P posterior fusion with wound vac placement (01/20) -Blood and Urine Cx noted above -Wound Cx: Escherichia Coli -ID Consulted, Appreciate rec's, Will follow weekly esr, crp, cpk; Pt will require prison abx (Rifampin PO, Ceftriaxone IV, Daptomycin for 6-8 weeks starting 01/23) and lifelong suppressive abx -Continue Daptomycin, Rifampin (Started on 01/23), Ceftriaxone (started on 01/30) -Completed Zosyn dose (Started on 01/26, completed 01/30) -Tylenol 1,000 mg PO Q6H 3. Lumbar Spinal Stenosis with Lumbar compression fx and kyphosis -s/p T12-L4 laminectomies, T9-pelvis posterior instrumentation, T9-S1 posterolateral arthrodesis (01/03) -s/p posterior fusion with wound vac placement (01/20), Wound vac removed (01/27) -POD#10 s/p thoracolumbar wound debridement with lavage and complex closure -Physical therapy requested -Continue Incentive Spirometry 4. COPD exacerbation -resolved -Continue Symbicort, Duonebs, Oxygen, Chest PT -Pulmonology consulted, Appreciate rec's, will add on LAMA at discharge 5. Normocytic Anemia -Hgb holding at 8.3 -Continue to hold IVF -s/p 3 pRBC units transfused 6. Chronic urinary retention -Patient self-caths at home -Eryes catheter present at this time -Change monthly 7. Constipation -Likely due to Opiate use s/p spinal surgery -Continue colace, senna, and miralax 8. FEN -PO Fluids -Lytes wnl -Regular diet 9. PPx -DVT: SCDs -GI: Protonix, Senna/colace, Miralax Dispo: D/C Planning as per Dr. Roberts Visit type - Emergency Visit Emergency Visit: No - New Patient This patient is new to me today: No - Critical Care Critical Care patient: No
[2018-02-03] MEDS: ACETAMINOPHEN 500 MG TABLET (FP) PO PRN (17:10)
[2018-02-03] MEDS: SENNOSIDES 8.6MG TABLET (FP) PO SCH (21:40)
[2018-02-03] MEDS: DOCUSATE SODIUM 100 MG CAPSULE (FP) PO SCH (21:40)
[2018-02-03] MEDS: traZODone HCL 50 MG TABLET (FP) PO SCH (21:41)
[2018-02-04] MEDS: HEPARIN NA (PORCINE) 5,000 UNITS/ML 1ML VIAL SQ SCH ×3 (05:50→21:55)
[2018-02-04] MEDS: AMINO ACIDS/PROTEIN HYDROLYS 30 ML LIQUID.PKT PO SCH ×2 (08:32→17:26)
[2018-02-04 08:44] LABS: BASO % 0.5 % (0-2.0); EOS % 4.9 % (0-4.5); HEMATOCRIT 25.7 % (35.4-49); HEMOGLOBIN 8.3 GM/dL (11.7-16.9); LYMPH % 20.2 % (8-40); MCH 27.6 pg (25.7-33.7); MCHC 32.3 g/dl (32.0-35.9); MEAN CELL VOLUME 85.3 fl (80-96); MEAN PLT VOLUME 7.3 fl (7.5-11.1); MONO % 8.5 % (3.8-10.2); NEUT % 65.9 % (42.8-82.8); PLATELET COUNT 364 K/MM3 (134-434); RBC 3.02 M/mm3 (4.00-5.60); RDW 14.6 % (11.9-15.9); WHITE BLOOD COUNT 6.8 K/mm3 (4.0-10.0)
[2018-02-04 09:20] LABS: ALBUMIN 1.8 g/dl (3.4-5.0); ALK PHOS 96 U/L (45-117); ANION GAP 5 MMOL/L (8-16); BILIRUBIN,TOTAL 0.3 mg/dL (0.2-1); BLOOD UREA NITROGEN 16 mg/dL (7-18); CALCIUM 8.7 mg/dL (8.5-10.1); CHLORIDE 104 mmol/L (98-107); CO2 29 mmol/L (21-32); CREATININE 0.8 mg/dL (0.55-1.3); GLUCOSE,RANDOM 75 mg/dL (74-106); PHOSPHOROUS 3.1 mg/dL (2.5-4.9); POTASSIUM 3.5 mmol/L (3.5-5.1); SGOT/AST 13 U/L (15-37); SGPT/ALT 10 U/L (13-61); SODIUM 137 mmol/L (136-145); TOT PROT 5.3 g/dl (6.4-8.2)
[2018-02-04] MEDS ORDERED: PT OWN MED DRAWER 7, Y5N ONE ×3 (10:23→21:42)
[2018-02-04] MEDS ORDERED: DEXTROSE 5%-WATER 100 ML IVPB ONE (10:23)
[2018-02-04] MEDS: DAPTOMYCIN 500 MG in SODIUM CHLORIDE 50 ML IVPB SCH (10:26)
[2018-02-04] MEDS: RIFAMPIN 300 MG CAPSULE PO SCH ×2 (10:27→21:54)
[2018-02-04] MEDS: POLYETHYLENE GLYCOL 3350 119 GM BTL PO SCH ×2 (10:27→21:54)
[2018-02-04] MEDS: PANTOPRAZOLE 40 MG TABLET (FP) PO SCH (10:27)
[2018-02-04] MEDS: NYSTATIN 100,000 UNIT/GM TOPICAL CREAM 15 GM TUBE TP SCH ×2 (10:27→22:04)
[2018-02-04] MEDS: BUDESONIDE/FORMETEROL FUMARATE 160/4.5 mcg INHALER IH SCH ×2 (10:28→21:56)
[2018-02-04] MEDS: ACETAMINOPHEN 500 MG TABLET (FP) PO PRN ×2 (10:30→18:51)
[2018-02-04] MEDS: CEFTRIAXONE 2 GM in DEXTROSE 5%-WATER 100 ML IVPB SCH (11:00)
--- NOTE | 2018-02-04 12:47 | PN ---
Teaching Attending Note Name of Resident: Zabrina Sullivan ATTENDING PHYSICIAN STATEMENT I saw and evaluated the patient. I reviewed the resident's note and discussed the case with the resident. I agree with the resident's findings and plan as documented. SUBJECTIVE: fever yesterday again. no SOB , no cough . no dysuria OBJECTIVE: NAD CV: RRR Lungs: CATB Ext: 1+ pedal edema back wound and sacral decub were not examined today ASSESSMENT AND PLAN: This is an 82 year old man a history of COPD, chronic urinary retention, lumbar compression fractures with spinal stenosis who was admitted for lumbar spine surgery. 1- S/p laminectomy T12-L4 2- MRSA bacteremia 3- E coli UTI 4- Infected surgical wound 5- infected hard wear 6- fever 7- anemia 8- COPD 9- chronic urinary retention plan: - fever recurred. ? source. - cont Abx. dapto, rifampin and ceftriaxone - case was d/w Dr. Roberts by resident. Dr. Roberts will evaluate today - cont nebs and inhaler - follow Hb - bowel regimen - change holder monthly - f/u with urology as out pt Dispo : has recurrent fevers. not ready for DC.
--- NOTE | 2018-02-04 14:15 | PN ---
Progress Note (short form) - Note Progress Note: PULMONARY Resting comfortably Cough mainly nonproductive Using incentive raphael temp spikes intermittently continue afeb now Gen: NAD at rest Heart: RRR Lung: scattered rhonchi Abd: soft, nontender Ext: no edema labs/meds/notes/images reviewed ASSESSMENT AND PLAN: MRSA bacteremia-negative blood cultures 01/15 ecoli UTI surgical wound infection infected hardware- s/p washout [id number]/1751-[id number]-[id number] cultures 01/23 COPD s/p ACUTE Exacerbation Chronic Hypoxic Respiratory Failure UTI - inhaled bronchodilators standing and PRN - pain control - incentive spirometry - on antibiotics as per ID - O2 to keep SpO2 >90% - PO as tolerated - DVT prophylaxis Stevenson FERRER MD
--- NOTE | 2018-02-04 15:14 | PN ---
Physical Exam: SUBJECTIVE: Patient seen and examined at bedside this morning. No new complaints , No over night events. OBJECTIVE: Vital Signs Period Temp Pulse Resp BP Sys/Hyman Pulse Ox Last 24 Hr 98.3 F-100.7 F 80-93 18-20 136-159/68-85 98 GENERAL: A&Ox2, believed he was at someone's house and questions who's house it was, NAD HEAD: NCAT ENT: Oropharynx clear without exudates, moist mucous membranes. NECK: No JVD LUNGS: Clear to auscultation bilaterally HEART: Regular rate and rhythm, S1, S2 without murmur ABDOMEN: Soft, nontender, nondistended, + bowel sounds : Reyes draining yellow/orange urine EXTREMITIES: 2+ pulses, 1+ edema R>L Laboratory Results - last 24 hr 02/04/18 02/04/18 08:12 08:12 WBC 6.8 RBC 3.02 L Hgb 8.3 L Hct 25.7 L MCV 85.3 MCH 27.6 MCHC 32.3 RDW 14.6 Plt Count 364 MPV 7.3 L Absolute Neuts (auto) 4.5 Neutrophils % 65.9 Lymphocytes % 20.2 Monocytes % 8.5 Eosinophils % 4.9 H Basophils % 0.5 Nucleated RBC % 0 Sodium 137 Potassium 3.5 Chloride 104 Carbon Dioxide 29 Anion Gap 5 L BUN 16 Creatinine 0.8 Creat Clearance w eGFR > 60 Random Glucose 75 Calcium 8.7 Phosphorus 3.1 Magnesium 2.0 Total Bilirubin 0.3 AST 13 L ALT 10 L Alkaline Phosphatase 96 Total Protein 5.3 L Albumin 1.8 L Microbiology 02/02/18 06:10 Blood - Peripheral Venous Blood Culture - Preliminary NO GROWTH OBTAINED AFTER 48 HOURS, INCUBATION TO CONTINUE FOR 3 DAYS. 02/02/18 06:30 Blood - Peripheral Venous Blood Culture - Preliminary NO GROWTH OBTAINED AFTER 48 HOURS, INCUBATION TO CONTINUE FOR 3 DAYS. 01/27/18 06:30 Blood - Peripheral Venous Blood Culture - Final NO GROWTH AFTER 5 DAYS INCUBATION 01/27/18 06:00 Blood - Peripheral Venous Blood Culture - Final NO GROWTH AFTER 5 DAYS INCUBATION 01/23/18 07:10 Wound-Other Gram Stain - Final 01/23/18 07:10 Wound-Other Wound Culture - Final Escherichia Coli 01/20/18 15:30 Back Gram Stain - Final 01/20/18 15:30 Back Wound Culture - Final S Aureus 01/20/18 09:50 Wound-Other Gram Stain - Final 01/20/18 09:50 Wound-Other Wound Culture - Final S Aureus 01/17/18 19:35 Abscess Gram Stain - Final 01/17/18 19:35 Abscess Wound Culture - Final S Aureus 01/17/18 19:38 Tissue-Other Gram Stain - Final 01/17/18 19:38 Tissue-Other Tissue Culture - Final Staphylococcus Species 01/17/18 19:38 Tissue-Other Anaerobic Culture - Final 01/17/18 19:34 Abscess Gram Stain - Final 01/17/18 19:34 Abscess Wound Culture - Final S Aureus 01/15/18 09:00 Blood - Peripheral Venous Blood Culture - Final NO GROWTH AFTER 5 DAYS INCUBATION 01/15/18 06:30 Blood - Peripheral Venous Blood Culture - Final NO GROWTH AFTER 5 DAYS INCUBATION 01/12/18 23:40 Blood - Peripheral Venous Blood Culture - Final S Aureus 01/12/18 23:40 Blood - Peripheral Venous Blood Culture - Final S Aureus 01/10/18 19:00 Blood - Peripheral Venous Blood Culture - Final S Aureus 01/10/18 18:00 Blood - Peripheral Venous Blood Culture - Final S Aureus 01/10/18 15:00 Urine - Urine - Catheterized Urine Culture - Final Escherichia Coli Active Medications Acetaminophen (Tylenol -) 1,000 mg PO Q6H PRN PRN Reason: PAIN LEVEL 1 - 3 Last Admin: 02/04/18 10:30 Dose: 1,000 mg Amino Acids (Prosource No Carb Liquid Pkt) 30 ml PO BID@0800,1730 [facility] Last Admin: 02/04/18 08:32 Dose: 30 ml Benzocaine/Menthol (Cepacol Lozenge -) 1 each MM PRN PRN PRN Reason: SORE THROAT Budesonide/Formoterol Fumarate (Symbicort 160/4.5mcg -) 2 puff IH BID [facility] Last Admin: 02/04/18 10:28 Dose: 2 puff Docusate Sodium (Colace -) 300 mg PO HS [facility] Last Admin: 02/03/18 21:40 Dose: Not Given Haloperidol (Haldol Injection (Fast Acting) -) 5 mg IM Q4H PRN PRN Reason: AGITATION Heparin Sodium (Porcine) (Heparin -) 5,000 unit SQ TID [facility] Last Admin: 02/04/18 13:30 Dose: 5,000 unit Ceftriaxone Sodium 2 gm/ (Dextrose) 100 mls @ 200 mls/hr IVPB DAILY [facility]; Protocol Last Admin: 02/04/18 11:00 Dose: 200 mls/hr Daptomycin 500 mg/ Sodium (Chloride) 50 mls @ 50 mls/hr IVPB DAILY [facility]; Protocol Last Admin: 02/04/18 10:26 Dose: 50 mls/hr Nystatin (Mycostatin Cream -) 1 applic TP BID [facility] Last Admin: 02/04/18 10:27 Dose: 1 applic Ondansetron HCl (Zofran Injection) 4 mg IVPUSH Q6H PRN PRN Reason: NAUSEA AND/OR VOMITING Pantoprazole Sodium (Protonix -) 40 mg PO DAILY [facility] Last Admin: 02/04/18 10:27 Dose: 40 mg Polyethylene Glycol (Miralax (For Daily Use) -) 17 gm PO BID [facility] Last Admin: 02/04/18 10:27 Dose: 17 grams Rifampin (Rifadin -) 300 mg PO BID [facility] Last Admin: 02/04/18 10:27 Dose: 300 mg Senna (Senna -) 2 tab PO HS [facility] Last Admin: 02/03/18 21:40 Dose: Not Given Trazodone HCl (Desyrel -) 150 mg PO [facility] Last Admin: 02/03/18 21:41 Dose: 150 mg IMAGING: - Fluoroscopy: Multiple spot radiographs of the lumbar spine obtained in the OR during a posterior fusion procedure are submitted. - CXR (01/04): There is no evidence of vascular congestive changes, pneumonia, pneumothorax, or large pleural effusion. - CXR (01/10): Since the prior study of 01/04/2018 at 1106 hours, there is new atelectasis or infiltrate at the left base. The remainder the study is unchanged. - CXR (02/02): No acute pathology - US Abdomen: Mild hepatomegaly. Moderately distended gallbladder without evidence of cholelithiasis or acute pathology. AAA with stenting. - Echo: LVEF 60-65%, No regional wall motion abnormalities, Trace Pulmonic valve regurg, No pericardial effusion - DUPLEX: No DVT is identified involving either leg. ASSESSMENT/PLAN: 82 y/o M w/ PMHx COPD, chronic urinary retention, aortic aneurysm admitted to ICU s/p lumbar Sx complicated by MRSA infection of hardware, bacteremia, UTI PNA 1. Fever -Febrile to 100.7 yesterday afternoon, Unclear source -Blood cultures noted above -CXR (02/02): No acute pathology -DUPLEX negative -C. Diff culture pending -Low threshold to cx if fevers reoccur -Already on ABx, Continue 2. Sepsis -Secondary to UTI, PNA, and Surgical Wound Infection with MRSA -UA (01/10): 211 WBC, 3+ LE -CXR (01/10): New atelectasis or infiltrate at the left base -Echo noted above -S/P incision, drainage, washout of deep thoracic and lumbar spine (01/17) and washout of an infected thoracic/lumber spinal incision S/P posterior fusion with wound vac placement (01/20) -Blood and Urine Cx noted above -Wound Cx: Escherichia Coli -ID Consulted, Appreciate rec's, Will follow weekly esr, crp, cpk; Pt will require termination clerk abx (Rifampin PO, Ceftriaxone IV, Daptomycin for 6-8 weeks starting 01/23) and lifelong suppressive abx -Continue Daptomycin, Rifampin (Started on 01/23), Ceftriaxone (started on 01/30) -Completed Zosyn dose (Started on 01/26, completed 01/30) -Tylenol 1,000 mg PO Q6H 3. Lumbar Spinal Stenosis with Lumbar compression fx and kyphosis -s/p T12-L4 laminectomies, T9-pelvis posterior instrumentation, T9-S1 posterolateral arthrodesis (01/03) -s/p posterior fusion with wound vac placement (01/20), Wound vac removed (01/27) -POD#11 s/p thoracolumbar wound debridement with lavage and complex closure -Physical therapy requested -Continue Incentive Spirometry 4. COPD exacerbation -resolved -Continue Symbicort, Duonebs, Oxygen, Chest PT -Pulmonology consulted, Appreciate rec's, will add on LAMA at discharge 5. Normocytic Anemia -Hgb holding at 8.3 -Continue to hold IVF -s/p 3 pRBC units transfused 6. Chronic urinary retention -Patient self-caths at home -Reyes catheter present at this time -Change monthly 7. Constipation -Likely due to Opiate use s/p spinal surgery -Continue colace, senna, and miralax 8. FEN -PO Fluids -Lytes wnl -Regular diet 9. PPx -DVT: SCDs -GI: Protonix, Senna/colace, Miralax Dispo: Recurrent fevers Visit type - Emergency Visit Emergency Visit: No - New Patient This patient is new to me today: No - Critical Care Critical Care patient: No - Discharge Referral Referred to [facility] No
--- NOTE | 2018-02-04 16:43 | PN ---
Progress Note (short form) - Note Progress Note: Fully orientated Nurses report stronger in stance and in walking Wound is dry except for the midthoracic area of dehissence and peripheral skin margin eschar. Neuro at baseline. PLAN Nutrition supplementation PT mobilize as often as possible Will review wound re surgical debridement
--- NOTE | 2018-02-04 16:48 | PN ---
Progress Note (short form) - Note Progress Note: alert oob in chair Vital Signs Period Temp Pulse Resp BP Sys/Hyman Pulse Ox Last 24 Hr 98.3 F-100.7 F 66-93 18-20 110-159/60-85 98 cor-rrr lungs clear abd soft,nt ext no edema holder back not examined today- patient in chair CBC, BMP 02/04/18 08:12 02/04/18 08:12 cxray no infiltrate ua negative a/p low grade temp- cultures pending, for duplex of legs, ua negative cxray no pneumonia MRSA bacteremia-negative blood cultures 01/15 MRSA surgical wound infection infected hardware- s/p washout 01/17-MRSA- wound culture 01/23 with ecoli s/p laminectomy T12 to L4 -01/03 continue ceftriaxone continue daptomycin/rifampin will require chcf abx minimum 6 to 8 weeks and lifelong suppressive antibiotics with bactrim or minocycline to follow- local care to [facility] Problem List - Problems (1) Fever Code(s): R50.9 - FEVER, UNSPECIFIED (2) Status post laminectomy Code(s): Z98.890 - OTHER SPECIFIED POSTPROCEDURAL STATES
[2018-02-04] MEDS: SENNOSIDES 8.6MG TABLET (FP) PO SCH (21:53)
[2018-02-04] MEDS: traZODone HCL 50 MG TABLET (FP) PO SCH (21:54)
[2018-02-04] MEDS: DOCUSATE SODIUM 100 MG CAPSULE (FP) PO SCH (22:05)
[2018-02-05] MEDS: HEPARIN NA (PORCINE) 5,000 UNITS/ML 1ML VIAL SQ SCH ×3 (06:28→21:21)
[2018-02-05] MEDS ORDERED: PT OWN MED DRAWER 7, Y5N ONE ×2 (09:18→20:28)
[2018-02-05] MEDS ORDERED: DEXTROSE 5%-WATER 100 ML IVPB ONE (09:19)
[2018-02-05] MEDS: AMINO ACIDS/PROTEIN HYDROLYS 30 ML LIQUID.PKT PO SCH ×2 (09:22→18:14)
[2018-02-05] MEDS: PANTOPRAZOLE 40 MG TABLET (FP) PO SCH (09:23)
[2018-02-05] MEDS: CEFTRIAXONE 2 GM in DEXTROSE 5%-WATER 100 ML IVPB SCH (09:23)
[2018-02-05] MEDS: ACETAMINOPHEN 500 MG TABLET (FP) PO PRN (09:23)
[2018-02-05] MEDS: RIFAMPIN 300 MG CAPSULE PO SCH ×2 (09:23→21:19)
[2018-02-05] MEDS: POLYETHYLENE GLYCOL 3350 119 GM BTL PO SCH ×2 (09:24→21:20)
[2018-02-05] MEDS: BUDESONIDE/FORMETEROL FUMARATE 160/4.5 mcg INHALER IH SCH ×2 (09:24→21:22)
[2018-02-05] MEDS: NYSTATIN 100,000 UNIT/GM TOPICAL CREAM 15 GM TUBE TP SCH ×2 (09:24→21:22)
[2018-02-05] MEDS: DAPTOMYCIN 500 MG in SODIUM CHLORIDE 50 ML IVPB SCH (10:39)
--- NOTE | 2018-02-05 10:39 | PN ---
Progress Note (short form) - Note Progress Note: PULMONARY Resting comfortably Cough mainly nonproductive Using incentive raphael temp spikes intermittently continue afeb now Gen: NAD at rest Heart: RRR Lung: scattered rhonchi Abd: soft, nontender Ext: no edema labs/meds/notes/images reviewed ASSESSMENT AND PLAN: Polymicrobial wound infection MRSA bacteremia-negative blood cultures 01/15 ecoli UTI surgical wound infection infected hardware- s/p washout 01/1784-KPBI-spftvuey cultures 01/23 COPD s/p ACUTE Exacerbation Chronic Hypoxic Respiratory Failure UTI - triple antibiotics as per ID - wound debridement planned as per surg - inhaled bronchodilators standing and PRN - pain control - incentive spirometry - on antibiotics as per ID - O2 to keep SpO2 >90% - PO as tolerated - DVT prophylaxis Stevenson FERRER MD
[2018-02-05] MEDS ORDERED: FLU VACCINE QUAD 60 MCG/0.5 ML (MDV 18-19) IM ONE (16:00)
--- NOTE | 2018-02-05 17:21 | PN ---
Progress Note (short form) - Note Progress Note: Subjective: No fever or chills .back pain is worse when he moves. daughter complains of not being able to ambulate Objective: Vital Signs: Last Vital Signs Temp Pulse Resp BP Pulse Ox 99.2 F 86 18 149/94 100 02/05/18 06:00 02/05/18 06:00 02/05/18 06:00 02/05/18 06:00 02/05/18 10:00 Physical Exam: NAD CV: RRR Lungs: CATB Ext: 1+ pedal edema back wound and sacral decub were not examined today ASSESSMENT AND PLAN: This is an 82 year old man a history of COPD, chronic urinary retention, lumbar compression fractures with spinal stenosis who was admitted for lumbar spine surgery. 1- S/p laminectomy T12-L4 2- MRSA bacteremia 3- E coli UTI 4- Infected surgical wound 5- infected hard wear 6- fever 7- anemia 8- COPD 9- chronic urinary retention plan: - no more fever . blood cx form 4th neg to date - cont Abx. dapto, rifampin and ceftriaxone - possible surgical debridment - cont nebs and inhaler - follow Hb - bowel regimen - change holder monthly - f/u with urology as out pt Dispo : HLOC . possible wound debridment try PT BID Visit type - Emergency Visit Emergency Visit: Yes ED Registration Date: 01/03/18 Care time: The patient presented to the Emergency Department on the above date and was hospitalized for further evaluation of their emergent condition. - New Patient This patient is new to me today: No - Critical Care Critical Care patient: No
[2018-02-05] MEDS ORDERED: ALBUTEROL SO4 2.5/IPRATROPIUM 0.5 INH SOL 3 ML VIAL.NEB. NEB ONE (20:52)
[2018-02-05] MEDS: traZODone HCL 50 MG TABLET (FP) PO SCH (21:19)
[2018-02-05] MEDS: DOCUSATE SODIUM 100 MG CAPSULE (FP) PO SCH (21:21)
[2018-02-05] MEDS: SENNOSIDES 8.6MG TABLET (FP) PO SCH (21:21)
[2018-02-05] MEDS: ALBUTEROL SO4 2.5/IPRATROPIUM 0.5 INH SOL 3 ML VIAL.NEB. NEB PRN (22:00)
[2018-02-06] MEDS: HEPARIN NA (PORCINE) 5,000 UNITS/ML 1ML VIAL SQ SCH ×3 (05:54→21:55)
[2018-02-06 07:56] LABS: BASO % 0.6 % (0-2.0); EOS % 5.4 % (0-4.5); HEMATOCRIT 27.5 % (35.4-49); HEMOGLOBIN 8.7 GM/dL (11.7-16.9); LYMPH % 21.3 % (8-40); MCH 27.3 pg (25.7-33.7); MCHC 31.8 g/dl (32.0-35.9); MEAN CELL VOLUME 85.7 fl (80-96); MEAN PLT VOLUME 7.3 fl (7.5-11.1); MONO % 7.8 % (3.8-10.2); NEUT % 64.9 % (42.8-82.8); PLATELET COUNT 350 K/MM3 (134-434); RBC 3.21 M/mm3 (4.00-5.60); RDW 14.8 % (11.9-15.9); WHITE BLOOD COUNT 7.2 K/mm3 (4.0-10.0)
[2018-02-06] MEDS: AMINO ACIDS/PROTEIN HYDROLYS 30 ML LIQUID.PKT PO SCH ×2 (08:20→16:56)
[2018-02-06] MEDS: POLYETHYLENE GLYCOL 3350 119 GM BTL PO SCH ×2 (09:15→21:57)
[2018-02-06] MEDS ORDERED: DEXTROSE 5%-WATER 100 ML IVPB ONE (09:22)
[2018-02-06] MEDS ORDERED: PT OWN MED DRAWER 7, Y5N ONE ×3 (09:25→21:20)
[2018-02-06] MEDS: PANTOPRAZOLE 40 MG TABLET (FP) PO SCH ×2 (09:27→09:49)
[2018-02-06] MEDS: RIFAMPIN 300 MG CAPSULE PO SCH ×3 (09:27→21:56)
[2018-02-06] MEDS: CEFTRIAXONE 2 GM in DEXTROSE 5%-WATER 100 ML IVPB SCH (09:29)
[2018-02-06] MEDS: NYSTATIN 100,000 UNIT/GM TOPICAL CREAM 15 GM TUBE TP SCH ×2 (09:33→21:57)
[2018-02-06] MEDS: BUDESONIDE/FORMETEROL FUMARATE 160/4.5 mcg INHALER IH SCH ×2 (09:33→21:57)
[2018-02-06] MEDS: ACETAMINOPHEN 500 MG TABLET (FP) PO PRN (09:49)
--- NOTE | 2018-02-06 10:12 | PN ---
Progress Note (short form) - Note Progress Note: PULMONARY Denies shortness of breath or chest pain. +nonproductive cough. Vital Signs Period Temp Pulse Resp BP Sys/Hyman Pulse Ox Last 24 Hr 98.1 F-98.5 F 81-90 18-18 141-155/50-95 98 Gen: NAD at rest Heart: RRR Lung: scattered rhonchi Abd: soft, nontender Ext: no edema CBC, BMP 02/06/18 07:30 02/04/18 08:12 Active Medications Acetaminophen (Tylenol -) 1,000 mg PO Q6H PRN PRN Reason: PAIN LEVEL 1 - 3 Last Admin: 02/06/18 09:49 Dose: 1,000 mg Albuterol/Ipratropium (Duoneb -) 1 amp NEB Q4H PRN PRN Reason: ASTHMA Last Admin: 02/05/18 22:00 Dose: 1 amp Amino Acids (Prosource No Carb Liquid Pkt) 30 ml PO BID@0800,1730 [facility] Last Admin: 02/06/18 08:20 Dose: Not Given Benzocaine/Menthol (Cepacol Lozenge -) 1 each MM PRN PRN PRN Reason: SORE THROAT Budesonide/Formoterol Fumarate (Symbicort 160/4.5mcg -) 2 puff IH BID [facility] Last Admin: 02/06/18 09:33 Dose: 2 puff Docusate Sodium (Colace -) 300 mg PO HS [facility] Last Admin: 02/05/18 21:21 Dose: Not Given Haloperidol (Haldol Injection (Fast Acting) -) 5 mg IM Q4H PRN PRN Reason: AGITATION Heparin Sodium (Porcine) (Heparin -) 5,000 unit SQ TID [facility] Last Admin: 02/06/18 05:54 Dose: Not Given Ceftriaxone Sodium 2 gm/ (Dextrose) 100 mls @ 200 mls/hr IVPB DAILY [facility]; Protocol Last Admin: 02/06/18 09:29 Dose: 200 mls/hr Daptomycin 500 mg/ Sodium (Chloride) 50 mls @ 50 mls/hr IVPB DAILY [facility]; Protocol Last Admin: 02/05/18 10:39 Dose: 50 mls/hr Nystatin (Mycostatin Cream -) 1 applic TP BID [facility] Last Admin: 02/06/18 09:33 Dose: 1 applic Ondansetron HCl (Zofran Injection) 4 mg IVPUSH Q6H PRN PRN Reason: NAUSEA AND/OR VOMITING Pantoprazole Sodium (Protonix -) 40 mg PO DAILY [facility] Last Admin: 02/06/18 09:49 Dose: 40 mg Polyethylene Glycol (Miralax (For Daily Use) -) 17 gm PO BID [facility] Last Admin: 02/06/18 09:15 Dose: Not Given Rifampin (Rifadin -) 300 mg PO BID [facility] Last Admin: 02/06/18 09:49 Dose: 300 mg Senna (Senna -) 2 tab PO [facility] Last Admin: 02/05/18 21:21 Dose: Not Given Trazodone HCl (Desyrel -) 150 mg PO [facility] Last Admin: 02/05/18 21:19 Dose: 150 mg A/P Lumbar Compression Fractures s/p T12-L4 Laminectomies/T9-pelvis instrumentation/T9-S1 posterior lateral arthrodesis Acute COPD Exacerbation improved Chronic Hypoxic Respiratory Failure Pneumonia Back Wound Infection MRSA Bacteremia Anemia - continue antibiotics per ID - f/u pending cultures - for possible wound debridement - inhaled bronchodilators standing and PRN - pain control - incentive spirometry - O2 to keep SpO2 >90% - PO as tolerated - bowel regimen - rehab/PT - DVT prophylaxis
[2018-02-06] MEDS: ALBUTEROL SO4 2.5/IPRATROPIUM 0.5 INH SOL 3 ML VIAL.NEB. NEB PRN (11:00)
[2018-02-06] MEDS: DAPTOMYCIN 500 MG in SODIUM CHLORIDE 50 ML IVPB SCH (11:12)
--- NOTE | 2018-02-06 13:10 | PN ---
Progress Note (short form) - Note Progress Note: alert jsut seen by surgeon, debridement cancelled after wound was examined Vital Signs Period Temp Pulse Resp BP Sys/Hyman Pulse Ox Last 24 Hr 98.0 F-98.5 F 81-90 18-20 141-155/50-95 98-100 cor-rrr lungs clear abd soft,nt ext no edema unable to examine back- dressing just done by surgeon CBC, BMP 02/06/18 07:30 02/04/18 08:12 Microbiology 02/02/18 06:10 Blood - Peripheral Venous Blood Culture - Preliminary NO GROWTH OBTAINED AFTER 96 HOURS, INCUBATION TO CONTINUE FOR 1 DAYS. 02/02/18 06:30 Blood - Peripheral Venous Blood Culture - Preliminary NO GROWTH OBTAINED AFTER 96 HOURS, INCUBATION TO CONTINUE FOR 1 DAYS. 01/27/18 06:30 Blood - Peripheral Venous Blood Culture - Final NO GROWTH AFTER 5 DAYS INCUBATION 01/27/18 06:00 Blood - Peripheral Venous Blood Culture - Final NO GROWTH AFTER 5 DAYS INCUBATION 01/23/18 07:10 Wound-Other Gram Stain - Final 01/23/18 07:10 Wound-Other Wound Culture - Final Escherichia Coli 01/20/18 15:30 Back Gram Stain - Final 01/20/18 15:30 Back Wound Culture - Final Mr S Aureus 01/20/18 09:50 Wound-Other Gram Stain - Final 01/20/18 09:50 Wound-Other Wound Culture - Final Mr S Aureus 01/17/18 19:35 Abscess Gram Stain - Final 01/17/18 19:35 Abscess Wound Culture - Final Mr S Aureus 01/17/18 19:38 Tissue-Other Gram Stain - Final 01/17/18 19:38 Tissue-Other Tissue Culture - Final Staphylococcus Species 01/17/18 19:38 Tissue-Other Anaerobic Culture - Final 01/17/18 19:34 Abscess Gram Stain - Final 01/17/18 19:34 Abscess Wound Culture - Final Mr S Aureus 01/15/18 09:00 Blood - Peripheral Venous Blood Culture - Final NO GROWTH AFTER 5 DAYS INCUBATION 01/15/18 06:30 Blood - Peripheral Venous Blood Culture - Final NO GROWTH AFTER 5 DAYS INCUBATION 01/12/18 23:40 Blood - Peripheral Venous Blood Culture - Final Mr S Aureus 01/12/18 23:40 Blood - Peripheral Venous Blood Culture - Final Mr S Aureus 01/10/18 19:00 Blood - Peripheral Venous Blood Culture - Final S Aureus 01/10/18 18:00 Blood - Peripheral Venous Blood Culture - Final Mr S Aureus 01/10/18 15:00 Urine - Urine - Catheterized Urine Culture - Final Escherichia Coli cxray no infiltrate ua negative a/p fevers resolved MRSA bacteremia-negative blood cultures 01/15 MRSA surgical wound infection infected hardware- s/p washout 01/17-MRSA- wound culture 01/23 with ecoli s/p laminectomy T12 to L4 -01/03 continue ceftriaxone continue daptomycin/rifampin will require fpc abx minimum 8 weeks and lifelong suppressive antibiotics with bactrim or minocycline to follow- local care to [facility] day #14 antibioitcs repeat cpk in am f/u crp Problem List - Problems (1) Fever Code(s): R50.9 - FEVER, UNSPECIFIED (2) Status post laminectomy Code(s): Z98.890 - OTHER SPECIFIED POSTPROCEDURAL STATES
--- NOTE | 2018-02-06 15:09 | PN ---
Teaching Attending Note Name of Resident: Jhonatan Mesa ATTENDING PHYSICIAN STATEMENT I saw and evaluated the patient. I reviewed the resident's note and discussed the case with the resident. I agree with the resident's findings and plan as documented. SUBJECTIVE: back pain is controlled . No diarrhea . big BM yesterday No CP or SOB OBJECTIVE: NAD CV: RRR Lungs: CATB Ext: 1+ pedal edema back wound and sacral decub were not examined today ASSESSMENT AND PLAN: This is an 82 year old man a history of COPD, chronic urinary retention, lumbar compression fractures with spinal stenosis who was admitted for lumbar spine surgery. 1- S/p laminectomy T12-L4 2- MRSA bacteremia 3- E coli UTI 4- Infected surgical wound 5- infected hard wear 6- fever 7- anemia 8- COPD 9- chronic urinary retention plan: - fever yesterday at 10 am - cont Abx. dapto, rifampin and ceftriaxone - possible surgical debridment. evaluated by Dr. Roberts today - cont nebs and inhaler - follow Hb - bowel regimen - change holder monthly - f/u with urology as out pt - CRP and CPK tomorrow Dispo : HLOC . possible wound debridment order PT BID per daughter's request
--- NOTE | 2018-02-06 15:39 | PN ---
Physical Exam: SUBJECTIVE: Patient seen and examined at bedside this morning. No new complaints , No over night events. Spoke with daughter at length regarding home medications and the necessity to hold aspirin in anticipation of procedures. OBJECTIVE: Vital Signs Period Temp Pulse Resp BP Sys/Hyman Pulse Ox Last 24 Hr 98.0 F-98.5 F 70-90 18-20 138-155/50-95 98-100 GENERAL: A&Ox2, NAD HEAD: NCAT ENT: Oropharynx clear without exudates, moist mucous membranes. NECK: No JVD LUNGS: Clear to auscultation bilaterally HEART: Regular rate and rhythm, S1, S2 without murmur ABDOMEN: Soft, nontender, nondistended, + bowel sounds : Reyes draining yellow/orange urine EXTREMITIES: 2+ pulses, 1+ edema R>L Laboratory Results - last 24 hr 02/06/18 07:30 WBC 7.2 RBC 3.21 L Hgb 8.7 L Hct 27.5 L MCV 85.7 MCH 27.3 MCHC 31.8 L RDW 14.8 Plt Count 350 MPV 7.3 L Absolute Neuts (auto) 4.7 Neutrophils % 64.9 Lymphocytes % 21.3 Monocytes % 7.8 Eosinophils % 5.4 H Basophils % 0.6 Nucleated RBC % 0 Microbiology 02/02/18 06:10 Blood - Peripheral Venous Blood Culture - Preliminary NO GROWTH OBTAINED AFTER 96 HOURS, INCUBATION TO CONTINUE FOR 1 DAYS. 02/02/18 06:30 Blood - Peripheral Venous Blood Culture - Preliminary NO GROWTH OBTAINED AFTER 96 HOURS, INCUBATION TO CONTINUE FOR 1 DAYS. 01/27/18 06:30 Blood - Peripheral Venous Blood Culture - Final NO GROWTH AFTER 5 DAYS INCUBATION 01/27/18 06:00 Blood - Peripheral Venous Blood Culture - Final NO GROWTH AFTER 5 DAYS INCUBATION 01/23/18 07:10 Wound-Other Gram Stain - Final 01/23/18 07:10 Wound-Other Wound Culture - Final Escherichia Coli 01/20/18 15:30 Back Gram Stain - Final 01/20/18 15:30 Back Wound Culture - Final Mr S Aureus 01/20/18 09:50 Wound-Other Gram Stain - Final 01/20/18 09:50 Wound-Other Wound Culture - Final Mr S Aureus 01/17/18 19:35 Abscess Gram Stain - Final 01/17/18 19:35 Abscess Wound Culture - Final Mr S Aureus 01/17/18 19:38 Tissue-Other Gram Stain - Final 01/17/18 19:38 Tissue-Other Tissue Culture - Final Staphylococcus Species 01/17/18 19:38 Tissue-Other Anaerobic Culture - Final 01/17/18 19:34 Abscess Gram Stain - Final 01/17/18 19:34 Abscess Wound Culture - Final S Aureus 01/15/18 09:00 Blood - Peripheral Venous Blood Culture - Final NO GROWTH AFTER 5 DAYS INCUBATION 01/15/18 06:30 Blood - Peripheral Venous Blood Culture - Final NO GROWTH AFTER 5 DAYS INCUBATION 01/12/18 23:40 Blood - Peripheral Venous Blood Culture - Final S Aureus 01/12/18 23:40 Blood - Peripheral Venous Blood Culture - Final S Aureus 01/10/18 19:00 Blood - Peripheral Venous Blood Culture - Final S Aureus 01/10/18 18:00 Blood - Peripheral Venous Blood Culture - Final S Aureus 01/10/18 15:00 Urine - Urine - Catheterized Urine Culture - Final Escherichia Coli Active Medications Acetaminophen (Tylenol -) 1,000 mg PO Q6H PRN PRN Reason: PAIN LEVEL 1 - 3 Last Admin: 02/06/18 09:49 Dose: 1,000 mg Albuterol/Ipratropium (Duoneb -) 1 amp NEB Q4H PRN PRN Reason: ASTHMA Last Admin: 02/06/18 11:00 Dose: 1 amp Amino Acids (Prosource No Carb Liquid Pkt) 30 ml PO BID@0800,1730 [facility] Last Admin: 02/06/18 08:20 Dose: Not Given Benzocaine/Menthol (Cepacol Lozenge -) 1 each MM PRN PRN PRN Reason: SORE THROAT Budesonide/Formoterol Fumarate (Symbicort 160/4.5mcg -) [address] [facility] Last Admin: 02/06/18 09:33 Dose: 2 puff Docusate Sodium (Colace -) [address] [facility] Last Admin: 02/05/18 21:21 Dose: Not Given Haloperidol (Haldol Injection (Fast Acting) -) 5 mg IM Q4H PRN PRN Reason: AGITATION Heparin Sodium (Porcine) (Heparin -) 5,[address] [facility] Last Admin: 02/06/18 14:22 Dose: 5,000 unit Ceftriaxone Sodium 2 gm/ (Dextrose) 100 mls @ 200 mls/hr IVPB DAILY [facility]; Protocol Last Admin: 02/06/18 09:29 Dose: 200 mls/hr Daptomycin 500 mg/ Sodium (Chloride) 50 mls @ 50 mls/hr IVPB DAILY [facility]; Protocol Last Admin: 02/06/18 11:12 Dose: 50 mls/hr Nystatin (Mycostatin Cream -) [address] [facility] Last Admin: 02/06/18 09:33 Dose: 1 applic Ondansetron HCl (Zofran Injection) 4 mg IVPUSH Q6H PRN PRN Reason: NAUSEA AND/OR VOMITING Pantoprazole Sodium (Protonix -) [address] [facility] Last Admin: 02/06/18 09:49 Dose: 40 mg Polyethylene Glycol (Miralax (For Daily Use) -) [address] [facility] Last Admin: 02/06/18 09:15 Dose: Not Given Rifampin (Rifadin -) [address] [facility] Last Admin: 02/06/18 09:49 Dose: 300 mg Senna (Senna -) [address] [facility] Last Admin: 02/05/18 21:21 Dose: Not Given Trazodone HCl (Desyrel -) [address] [facility] Last Admin: 02/05/18 21:19 Dose: 150 mg IMAGING: - Fluoroscopy: Multiple spot radiographs of the lumbar spine obtained in the OR during a posterior fusion procedure are submitted. - CXR (01/04): There is no evidence of vascular congestive changes, pneumonia, pneumothorax, or large pleural effusion. - CXR (01/10): Since the prior study of 01/04/2018 at 1106 hours, there is new atelectasis or infiltrate at the left base. The remainder the study is unchanged. - CXR (02/02): No acute pathology - US Abdomen: Mild hepatomegaly. Moderately distended gallbladder without evidence of cholelithiasis or acute pathology. AAA with stenting. - Echo: LVEF 60-65%, No regional wall motion abnormalities, Trace Pulmonic valve regurg, No pericardial effusion - DUPLEX: No DVT is identified involving either leg. ASSESSMENT/PLAN: 82 y/o M w/ PMHx COPD, chronic urinary retention, aortic aneurysm admitted to ICU s/p lumbar Sx complicated by MRSA infection of hardware, bacteremia, UTI PNA 1. Fever -Afebrile -Blood cultures noted above -CXR (02/02): No acute pathology -DUPLEX negative -C. Diff culture pending -Low threshold to cx if fevers reoccur -Already on ABx, Continue -DUPLEX of RUE pending 2. Sepsis -Secondary to UTI, PNA, and Surgical Wound Infection with MRSA -UA (01/10): 211 WBC, 3+ LE -CXR (01/10): New atelectasis or infiltrate at the left base -Echo noted above -S/P incision, drainage, washout of deep thoracic and lumbar spine (01/17) and washout of an infected thoracic/lumber spinal incision S/P posterior fusion with wound vac placement (01/20) -Blood and Urine Cx noted above -Wound Cx: Escherichia Coli -ID Consulted, Appreciate rec's, Will follow weekly esr, crp, cpk; Pt will require long-term abx (Rifampin PO, Ceftriaxone IV, Daptomycin for 6-8 weeks starting 01/23) and lifelong suppressive abx -Continue Daptomycin, Rifampin (Started on 01/23), Ceftriaxone (started on 01/30) -Completed Zosyn dose (Started on 01/26, completed 01/30) -Tylenol 1,000 mg PO Q6H 3. Lumbar Spinal Stenosis with Lumbar compression fx and kyphosis -s/p T12-L4 laminectomies, T9-pelvis posterior instrumentation, T9-S1 posterolateral arthrodesis (01/03) -s/p posterior fusion with wound vac placement (01/20), Wound vac removed (01/27) -POD#11 s/p thoracolumbar wound debridement with lavage and complex closure -Physical therapy requested -Continue Incentive Spirometry 4. COPD exacerbation -resolved -Continue Symbicort, Duonebs, Oxygen, Chest PT -Pulmonology consulted, Appreciate rec's, will add on LAMA at discharge 5. Normocytic Anemia -Hgb holding at 8.3 -Continue to hold IVF -s/p 3 pRBC units transfused 6. Chronic urinary retention -Patient self-caths at home -Reyes catheter present at this time -Change monthly 7. Constipation -Likely due to Opiate use s/p spinal surgery -Continue colace, senna, and miralax 8. FEN -PO Fluids -Lytes wnl -Regular diet 9. PPx -DVT: SCDs -GI: Protonix, Senna/colace, Miralax Dispo: Ortho to evaluate Wound on Tuesday Visit type - Emergency Visit Emergency Visit: Yes ED Registration Date: 01/03/18 Care time: The patient presented to the Emergency Department on the above date and was hospitalized for further evaluation of their emergent condition. - New Patient This patient is new to me today: No - Critical Care Critical Care patient: No - Discharge Referral Referred to [facility] No
[2018-02-06] MEDS: DOCUSATE SODIUM 100 MG CAPSULE (FP) PO SCH (21:54)
[2018-02-06] MEDS: traZODone HCL 50 MG TABLET (FP) PO SCH (21:56)
[2018-02-06] MEDS: SENNOSIDES 8.6MG TABLET (FP) PO SCH (21:57)
[2018-02-07] MEDS: HEPARIN NA (PORCINE) 5,000 UNITS/ML 1ML VIAL SQ SCH ×3 (06:57→22:04)
[2018-02-07] MEDS: ALBUTEROL SO4 2.5/IPRATROPIUM 0.5 INH SOL 3 ML VIAL.NEB. NEB PRN (07:25)
[2018-02-07] MEDS ORDERED: PT OWN MED DRAWER 7, Y5N ONE ×2 (09:12→21:53)
[2018-02-07] MEDS ORDERED: DEXTROSE 5%-WATER 100 ML IVPB ONE (09:12)
[2018-02-07] MEDS: RIFAMPIN 300 MG CAPSULE PO SCH ×2 (09:19→22:04)
[2018-02-07] MEDS: PANTOPRAZOLE 40 MG TABLET (FP) PO SCH (09:19)
[2018-02-07] MEDS: ACETAMINOPHEN 500 MG TABLET (FP) PO PRN ×2 (09:19→18:58)
[2018-02-07] MEDS: CEFTRIAXONE 2 GM in DEXTROSE 5%-WATER 100 ML IVPB SCH (09:19)
[2018-02-07] MEDS: AMINO ACIDS/PROTEIN HYDROLYS 30 ML LIQUID.PKT PO SCH ×2 (09:19→17:50)
[2018-02-07] MEDS: NYSTATIN 100,000 UNIT/GM TOPICAL CREAM 15 GM TUBE TP SCH ×2 (09:20→22:05)
[2018-02-07] MEDS: BUDESONIDE/FORMETEROL FUMARATE 160/4.5 mcg INHALER IH SCH ×2 (09:20→22:05)
[2018-02-07] MEDS: POLYETHYLENE GLYCOL 3350 119 GM BTL PO SCH ×3 (09:20→22:09)
[2018-02-07] MEDS ORDERED: ALBUTEROL SO4 0.083% IH SOL 2.5 MG/3 ML VIAL.NEB. NEB PRN (10:10)
--- NOTE | 2018-02-07 10:10 | PN ---
Progress Note (short form) - Note Progress Note: PULMONARY Denies shortness of breath or chest pain. +nonproductive cough. Vital Signs Period Temp Pulse Resp BP Sys/Hyman Pulse Ox Last 24 Hr 98.1 F-99.8 F 70-95 18-20 111-160/61-100 96 Gen: NAD at rest Heart: RRR Lung: decreased breath sounds at the bases Abd: soft, nontender Ext: no edema CBC, BMP 02/06/18 07:30 02/04/18 08:12 Active Medications Acetaminophen (Tylenol -) 1,000 mg PO Q6H PRN PRN Reason: PAIN LEVEL 1 - 3 Last Admin: 02/07/18 09:19 Dose: 1,000 mg Albuterol/Ipratropium (Duoneb -) 1 amp NEB Q4H PRN PRN Reason: ASTHMA Last Admin: 02/07/18 07:25 Dose: 1 amp Amino Acids (Prosource No Carb Liquid Pkt) 30 ml PO BID@0800,1730 [facility] Last Admin: 02/07/18 09:19 Dose: 30 ml Benzocaine/Menthol (Cepacol Lozenge -) 1 each MM PRN PRN PRN Reason: SORE THROAT Budesonide/Formoterol Fumarate (Symbicort 160/4.5mcg -) 2 puff IH BID [facility] Last Admin: 02/07/18 09:20 Dose: 2 puff Docusate Sodium (Colace -) 300 mg PO HS [facility] Last Admin: 02/06/18 21:54 Dose: Not Given Haloperidol (Haldol Injection (Fast Acting) -) 5 mg IM Q4H PRN PRN Reason: AGITATION Heparin Sodium (Porcine) (Heparin -) 5,000 unit SQ TID [facility] Last Admin: 02/07/18 06:57 Dose: Not Given Ceftriaxone Sodium 2 gm/ (Dextrose) 100 mls @ 200 mls/hr IVPB DAILY [facility]; Protocol Last Admin: 02/07/18 09:19 Dose: 200 mls/hr Daptomycin 500 mg/ Sodium (Chloride) 50 mls @ 50 mls/hr IVPB DAILY [facility]; Protocol Last Admin: 02/06/18 11:12 Dose: 50 mls/hr Nystatin (Mycostatin Cream -) 1 applic TP BID [facility] Last Admin: 10/09/18 09:20 Dose: 1 applic Ondansetron HCl (Zofran Injection) 4 mg IVPUSH Q6H PRN PRN Reason: NAUSEA AND/OR VOMITING Pantoprazole Sodium (Protonix -) 40 mg PO DAILY [facility] Last Admin: 02/07/18 09:19 Dose: 40 mg Polyethylene Glycol (Miralax (For Daily Use) -) 17 gm PO BID [facility] Last Admin: 02/07/18 09:20 Dose: Not Given Rifampin (Rifadin -) 300 mg PO BID [facility] Last Admin: 02/07/18 09:19 Dose: 300 mg Senna (Senna -) 2 tab PO [facility] Last Admin: 02/06/18 21:57 Dose: Not Given Trazodone HCl (Desyrel -) 150 mg PO [facility] Last Admin: 02/06/18 21:56 Dose: 150 mg A/P Lumbar Compression Fractures s/p T12-L4 Laminectomies/T9-pelvis instrumentation/T9-S1 posterior lateral arthrodesis Acute COPD Exacerbation improved Chronic Hypoxic Respiratory Failure Pneumonia Back Wound Infection MRSA Bacteremia Anemia - continue antibiotics per ID - surgery to evaluate wound tomorrow - inhaled bronchodilators standing and PRN - pain control - incentive spirometry - O2 to keep SpO2 >90% - PO as tolerated - bowel regimen - rehab/PT - DVT prophylaxis
[2018-02-07] MEDS: DAPTOMYCIN 500 MG in SODIUM CHLORIDE 50 ML IVPB SCH (11:38)
--- NOTE | 2018-02-07 15:42 | PN ---
Teaching Attending Note Name of Resident: Zabrina Sullivan ATTENDING PHYSICIAN STATEMENT I saw and evaluated the patient. I reviewed the resident's note and discussed the case with the resident. I agree with the resident's findings and plan as documented. SUBJECTIVE: No pain when in bed. no SOB . no fever or chills . OBJECTIVE: NAD CV: RRR Lungs: CATB Ext: 1+ pedal edema Back vertigal wound with alma and an open area with discolored skin , with no discharge ASSESSMENT AND PLAN: This is an 82 year old man a history of COPD, chronic urinary retention, lumbar compression fractures with spinal stenosis who was admitted for lumbar spine surgery. 1- S/p laminectomy T12-L4 2- MRSA bacteremia 3- E coli UTI 4- Infected surgical wound 5- infected hard wear 6- intermittent 7- anemia 8- COPD 9- chronic urinary retention plan: - fever did not recur. blood cx neg - cont Abx. dapto, rifampin and ceftriaxone - dr. Roberts to evaluate wound tomorrow - cont nebs and inhaler - bowel regimen - change holder monthly - f/u with urology as out pt - CRP ordered for tomorrow Dispo : HLOC , due to intermittent fever
[2018-02-07] MEDS: ALBUTEROL SO4 2.5/IPRATROPIUM 0.5 INH SOL 3 ML VIAL.NEB. NEB SCH ×2 (16:03→20:15)
--- NOTE | 2018-02-07 19:58 | PN ---
Physical Exam: SUBJECTIVE: Patient seen and examined at bedside this morning. No new complaints , No over night events. OBJECTIVE: Vital Signs Period Temp Pulse Resp BP Sys/Hyman Pulse Ox Last 24 Hr 98.2 F-99.8 F 76-95 18-20 111-148/51-100 95-96 GENERAL: A&Ox2, NAD HEAD: NCAT ENT: Oropharynx clear without exudates, moist mucous membranes. NECK: No JVD LUNGS: Clear to auscultation bilaterally HEART: Regular rate and rhythm, S1, S2 without murmur ABDOMEN: Soft, nontender, nondistended, + bowel sounds : Reyes draining yellow/orange urine EXTREMITIES: 2+ pulses, 1+ edema R>L Laboratory Results - last 24 hr 02/07/18 07:10 Creatine Kinase 70 Microbiology 02/02/18 06:10 Blood - Peripheral Venous Blood Culture - Final NO GROWTH AFTER 5 DAYS INCUBATION 02/02/18 06:30 Blood - Peripheral Venous Blood Culture - Final NO GROWTH AFTER 5 DAYS INCUBATION 01/27/18 06:30 Blood - Peripheral Venous Blood Culture - Final NO GROWTH AFTER 5 DAYS INCUBATION 01/27/18 06:00 Blood - Peripheral Venous Blood Culture - Final NO GROWTH AFTER 5 DAYS INCUBATION 01/23/18 07:10 Wound-Other Gram Stain - Final 01/23/18 07:10 Wound-Other Wound Culture - Final Escherichia Coli 01/20/18 15:30 Back Gram Stain - Final 01/20/18 15:30 Back Wound Culture - Final Mr S Aureus 01/20/18 09:50 Wound-Other Gram Stain - Final 01/20/18 09:50 Wound-Other Wound Culture - Final Mr S Aureus 01/17/18 19:35 Abscess Gram Stain - Final 01/17/18 19:35 Abscess Wound Culture - Final Mr S Aureus 01/17/18 19:38 Tissue-Other Gram Stain - Final 01/17/18 19:38 Tissue-Other Tissue Culture - Final Staphylococcus Species 01/17/18 19:38 Tissue-Other Anaerobic Culture - Final 01/17/18 19:34 Abscess Gram Stain - Final 01/17/18 19:34 Abscess Wound Culture - Final Mr S Aureus 01/15/18 09:00 Blood - Peripheral Venous Blood Culture - Final NO GROWTH AFTER 5 DAYS INCUBATION 01/15/18 06:30 Blood - Peripheral Venous Blood Culture - Final NO GROWTH AFTER 5 DAYS INCUBATION 01/12/18 23:40 Blood - Peripheral Venous Blood Culture - Final S Aureus 01/12/18 23:40 Blood - Peripheral Venous Blood Culture - Final S Aureus 01/10/18 19:00 Blood - Peripheral Venous Blood Culture - Final S Aureus 01/10/18 18:00 Blood - Peripheral Venous Blood Culture - Final S Aureus 01/10/18 15:00 Urine - Urine - Catheterized Urine Culture - Final Escherichia Coli Active Medications Acetaminophen (Tylenol -) 1,000 mg PO Q6H PRN PRN Reason: PAIN LEVEL 1 - 3 Last Admin: 02/07/18 18:58 Dose: 1,000 mg Albuterol Sulfate (Ventolin 0.083% Nebulizer Soln -) 1 amp NEB Q4H PRN PRN Reason: SHORT OF BREATH/WHEEZING Albuterol/Ipratropium (Duoneb -) 1 amp NEB RTID [facility] Last Admin: 02/07/18 16:03 Dose: 1 amp Amino Acids (Prosource No Carb Liquid Pkt) 30 ml PO BID@0800,1730 [facility] Last Admin: 02/07/18 17:50 Dose: 30 ml Benzocaine/Menthol (Cepacol Lozenge -) 1 each MM PRN PRN PRN Reason: SORE THROAT Budesonide/Formoterol Fumarate (Symbicort 160/4.5mcg -) 2 puff IH BID [facility] Last Admin: 02/07/18 09:20 Dose: 2 puff Docusate Sodium (Colace -) 300 mg PO HS [facility] Last Admin: 02/06/18 21:54 Dose: Not Given Haloperidol (Haldol Injection (Fast Acting) -) 5 mg IM Q4H PRN PRN Reason: AGITATION Heparin Sodium (Porcine) (Heparin -) 5,000 unit SQ TID [facility] Last Admin: 02/07/18 14:54 Dose: 5,000 unit Ceftriaxone Sodium 2 gm/ (Dextrose) 100 mls @ 200 mls/hr IVPB DAILY [facility]; Protocol Last Admin: 02/07/18 09:19 Dose: 200 mls/hr Daptomycin 500 mg/ Sodium (Chloride) 50 mls @ 50 mls/hr IVPB DAILY [facility]; Protocol Last Admin: 02/07/18 11:38 Dose: 50 mls/hr Nystatin (Mycostatin Cream -) 1 applic TP BID [facility] Last Admin: 02/07/18 09:20 Dose: 1 applic Ondansetron HCl (Zofran Injection) 4 mg IVPUSH Q6H PRN PRN Reason: NAUSEA AND/OR VOMITING Pantoprazole Sodium (Protonix -) 40 mg PO DAILY [facility] Last Admin: 02/07/18 09:19 Dose: 40 mg Polyethylene Glycol (Miralax (For Daily Use) -) 17 gm PO BID [facility] Last Admin: 02/07/18 09:20 Dose: Not Given Rifampin (Rifadin -) 300 mg PO BID [facility] Last Admin: 02/07/18 09:19 Dose: 300 mg Senna (Senna -) 2 tab PO [facility] Last Admin: 02/06/18 21:57 Dose: Not Given Trazodone HCl (Desyrel -) 150 mg PO [facility] Last Admin: 02/06/18 21:56 Dose: 150 mg IMAGING: - Fluoroscopy: Multiple spot radiographs of the lumbar spine obtained in the OR during a posterior fusion procedure are submitted. - CXR (01/04): There is no evidence of vascular congestive changes, pneumonia, pneumothorax, or large pleural effusion. - CXR (01/10): Since the prior study of 01/04/2018 at 1106 hours, there is new atelectasis or infiltrate at the left base. The remainder the study is unchanged. - CXR (02/02): No acute pathology - US Abdomen: Mild hepatomegaly. Moderately distended gallbladder without evidence of cholelithiasis or acute pathology. AAA with stenting. - Echo: LVEF 60-65%, No regional wall motion abnormalities, Trace Pulmonic valve regurg, No pericardial effusion - DUPLEX LE: No DVT is identified involving either leg. - DUPLEX RUE: No sonographic evidence of right arm DVT is identified. ASSESSMENT/PLAN: 82 y/o M w/ PMHx COPD, chronic urinary retention, aortic aneurysm admitted to ICU s/p lumbar Sx complicated by MRSA infection of hardware, bacteremia, UTI PNA 1. Fever -Afebrile -Blood cultures noted above -CXR (02/02): No acute pathology -DUPLEX LE negative -Low threshold to cx if fevers reoccur -Already on ABx, Continue -DUPLEX of RUE negative 2. Sepsis -Secondary to UTI, PNA, and Surgical Wound Infection with MRSA -UA (01/10): 211 WBC, 3+ LE -CXR (01/10): New atelectasis or infiltrate at the left base -Echo noted above -S/P incision, drainage, washout of deep thoracic and lumbar spine (01/17) and washout of an infected thoracic/lumber spinal incision S/P posterior fusion with wound vac placement (01/20) -Blood and Urine Cx noted above -Wound Cx: Escherichia Coli -ID Consulted, Appreciate rec's, Will follow weekly esr, crp, cpk; Pt will require [place] gatherer abx (Rifampin PO, Ceftriaxone IV, Daptomycin for 6-8 weeks starting 01/23) and lifelong suppressive abx -Continue Daptomycin, Rifampin (Started on 01/23), Ceftriaxone (started on 01/30) -Completed Zosyn dose (Started on 01/26, completed 01/30) -Tylenol 1,000 mg PO Q6H 3. Lumbar Spinal Stenosis with Lumbar compression fx and kyphosis -s/p T12-L4 laminectomies, T9-pelvis posterior instrumentation, T9-S1 posterolateral arthrodesis (01/03) -s/p posterior fusion with wound vac placement (01/20), Wound vac removed (01/27) -POD#12 s/p thoracolumbar wound debridement with lavage and complex closure -Physical therapy requested -Continue Incentive Spirometry 4. COPD exacerbation -resolved -Continue Symbicort, Duonebs, Oxygen, Chest PT -Pulmonology consulted, Appreciate rec's, will add on LAMA at discharge 5. Normocytic Anemia -Hgb holding at 8.3 -Continue to hold IVF -s/p 3 pRBC units transfused 6. Chronic urinary retention -Patient self-caths at home -Reyes catheter present at this time -Change monthly 7. Constipation -Likely due to Opiate use s/p spinal surgery -Continue colace, senna, and miralax 8. FEN -PO Fluids -Lytes wnl -Regular diet 9. PPx -DVT: SCDs -GI: Protonix, Senna/colace, Miralax Dispo: Ortho to evaluate Wound on Tuesday Visit type - Emergency Visit Emergency Visit: Yes ED Registration Date: 01/03/18 Care time: The patient presented to the Emergency Department on the above date and was hospitalized for further evaluation of their emergent condition. - New Patient This patient is new to me today: No - Critical Care Critical Care patient: No
[2018-02-07] MEDS: DOCUSATE SODIUM 100 MG CAPSULE (FP) PO SCH (22:03)
[2018-02-07] MEDS: traZODone HCL 50 MG TABLET (FP) PO SCH (22:03)
[2018-02-07] MEDS: SENNOSIDES 8.6MG TABLET (FP) PO SCH ×2 (22:04→22:10)
[2018-02-08] MEDS: HEPARIN NA (PORCINE) 5,000 UNITS/ML 1ML VIAL SQ SCH ×3 (06:07→21:49)
[2018-02-08] MEDS: ALBUTEROL SO4 2.5/IPRATROPIUM 0.5 INH SOL 3 ML VIAL.NEB. NEB SCH ×3 (07:30→20:48)
[2018-02-08] MEDS ORDERED: DEXTROSE 5%-WATER 100 ML IVPB ONE (09:26)
[2018-02-08] MEDS ORDERED: PT OWN MED DRAWER 7, Y5N ONE (09:26)
[2018-02-08] MEDS: PANTOPRAZOLE 40 MG TABLET (FP) PO SCH (09:34)
[2018-02-08] MEDS: AMINO ACIDS/PROTEIN HYDROLYS 30 ML LIQUID.PKT PO SCH ×2 (09:34→16:38)
[2018-02-08] MEDS: ACETAMINOPHEN 500 MG TABLET (FP) PO PRN ×2 (09:34→16:38)
[2018-02-08] MEDS: CEFTRIAXONE 2 GM in DEXTROSE 5%-WATER 100 ML IVPB SCH (09:34)
[2018-02-08] MEDS: RIFAMPIN 300 MG CAPSULE PO SCH ×2 (09:34→21:49)
[2018-02-08] MEDS: POLYETHYLENE GLYCOL 3350 119 GM BTL PO SCH ×2 (09:37→21:53)
[2018-02-08] MEDS: NYSTATIN 100,000 UNIT/GM TOPICAL CREAM 15 GM TUBE TP SCH ×2 (09:38→21:54)
[2018-02-08] MEDS: BUDESONIDE/FORMETEROL FUMARATE 160/4.5 mcg INHALER IH SCH ×2 (09:38→21:54)
[2018-02-08] MEDS: DAPTOMYCIN 500 MG in SODIUM CHLORIDE 50 ML IVPB SCH (10:32)
--- NOTE | 2018-02-08 11:46 | PN ---
Progress Note (short form) - Note Progress Note: alert awaiting f/u by surgeon bone stimulator on cannot examine his back Vital Signs Period Temp Pulse Resp BP Sys/Hyman Pulse Ox Last 24 Hr 98.2 F-99.1 F 76-82 18-20 129-162/51-77 95 cor-rrr lungs decreased bs at bases abd soft, stimulator in place ext no edema +holder CBC, BMP 02/06/18 07:30 02/04/18 08:12 Microbiology 02/02/18 06:10 Blood - Peripheral Venous Blood Culture - Final NO GROWTH AFTER 5 DAYS INCUBATION 02/02/18 06:30 Blood - Peripheral Venous Blood Culture - Final NO GROWTH AFTER 5 DAYS INCUBATION 01/27/18 06:30 Blood - Peripheral Venous Blood Culture - Final NO GROWTH AFTER 5 DAYS INCUBATION 01/27/18 06:00 Blood - Peripheral Venous Blood Culture - Final NO GROWTH AFTER 5 DAYS INCUBATION 01/23/18 07:10 Wound-Other Gram Stain - Final 01/23/18 07:10 Wound-Other Wound Culture - Final Escherichia Coli 01/20/18 15:30 Back Gram Stain - Final 01/20/18 15:30 Back Wound Culture - Final Mr S Aureus 01/20/18 09:50 Wound-Other Gram Stain - Final 01/20/18 09:50 Wound-Other Wound Culture - Final Mr S Aureus 01/17/18 19:35 Abscess Gram Stain - Final 01/17/18 19:35 Abscess Wound Culture - Final Mr S Aureus 01/17/18 19:38 Tissue-Other Gram Stain - Final 01/17/18 19:38 Tissue-Other Tissue Culture - Final Staphylococcus Species 01/17/18 19:38 Tissue-Other Anaerobic Culture - Final 01/17/18 19:34 Abscess Gram Stain - Final 01/17/18 19:34 Abscess Wound Culture - Final Mr S Aureus 01/15/18 09:00 Blood - Peripheral Venous Blood Culture - Final NO GROWTH AFTER 5 DAYS INCUBATION 01/15/18 06:30 Blood - Peripheral Venous Blood Culture - Final NO GROWTH AFTER 5 DAYS INCUBATION 01/12/18 23:40 Blood - Peripheral Venous Blood Culture - Final Mr S Aureus 01/12/18 23:40 Blood - Peripheral Venous Blood Culture - Final Mr S Aureus 01/10/18 19:00 Blood - Peripheral Venous Blood Culture - Final Mr S Aureus 01/10/18 18:00 Blood - Peripheral Venous Blood Culture - Final Mr S Aureus 01/10/18 15:00 Urine - Urine - Catheterized Urine Culture - Final Escherichia Coli cxray no infiltrate ua negative a/p fevers resolved MRSA bacteremia-negative blood cultures 01/15 MRSA surgical wound infection infected hardware- s/p washout 01/17-MRSA- wound culture 01/23 with ecoli s/p laminectomy T12 to L4 -01/03 continue ceftriaxone continue daptomycin/rifampin will require care home abx minimum 8 weeks and lifelong suppressive antibiotics with bactrim or minocycline to follow- local care to [facility] #16 antibioitcs crp starting to trend down f/u with surgeon today Problem List - Problems (1) Fever Code(s): R50.9 - FEVER, UNSPECIFIED (2) Status post laminectomy Code(s): Z98.890 - OTHER SPECIFIED POSTPROCEDURAL STATES
--- NOTE | 2018-02-08 13:18 | PN ---
Teaching Attending Note Name of Resident: Zabrina Sullivan ATTENDING PHYSICIAN STATEMENT I saw and evaluated the patient. I reviewed the resident's note and discussed the case with the resident. I agree with the resident's findings and plan as documented. SUBJECTIVE: Patient is comfortable with no acute distress. No shortness of breath. no fever. OBJECTIVE: Vital Signs Temperature 99.2 F 02/08/18 10:00 Pulse Rate 101 H 02/08/18 10:00 Respiratory Rate 20 02/08/18 10:00 Blood Pressure 130/80 02/08/18 10:00 O2 Sat by Pulse Oximetry (%) 95 02/07/18 21:00 Gen: lying in bed with no acute distress HEART: S1S2, RRR ABDOMEN: Soft, non-tender, non-distended, normal BS EXTREMITIES: No edema Neuro and back exam as per ortho. CBCD WBC 7.2 K/mm3 (4.0-10.0) 02/06/18 07:30 RBC 3.21 M/mm3 (4.00-5.60) L 02/06/18 07:30 Hgb 8.7 GM/dL (11.7-16.9) L 02/06/18 07:30 Hct 27.5 % (35.4-49) L 02/06/18 07:30 MCV 85.7 fl (80-96) 02/06/18 07:30 MCHC 31.8 g/dl (32.0-35.9) L 02/06/18 07:30 RDW 14.8 % (11.9-15.9) 02/06/18 07:30 Plt Count 350 K/MM3 (134-434) 02/06/18 07:30 MPV 7.3 fl (7.5-11.1) L 02/06/18 07:30 CMP Sodium 137 mmol/L (136-145) 02/04/18 08:12 Potassium 3.5 mmol/L (3.5-5.1) 02/04/18 08:12 Chloride 104 mmol/L (98-107) 02/04/18 08:12 Carbon Dioxide 29 mmol/L (21-32) 02/04/18 08:12 Anion Gap 5 MMOL/L (8-16) L 02/04/18 08:12 BUN 16 mg/dL (7-18) 02/04/18 08:12 Creatinine 0.8 mg/dL (0.55-1.3) 02/04/18 08:12 Creat Clearance w eGFR > 60 (>60) 02/04/18 08:12 Random Glucose 75 mg/dL (74-106) 02/04/18 08:12 Calcium 8.7 mg/dL (8.5-10.1) 02/04/18 08:12 Total Bilirubin 0.3 mg/dL (0.2-1) 02/04/18 08:12 AST 13 U/L (15-37) L 02/04/18 08:12 ALT 10 U/L (13-61) L 02/04/18 08:12 Alkaline Phosphatase 96 U/L (45-117) 02/04/18 08:12 Total Protein 5.3 g/dl (6.4-8.2) L 02/04/18 08:12 Albumin 1.8 g/dl (3.4-5.0) L 02/04/18 08:12 CARDIAC ENZYMES Creatine Kinase 70 IU/L (26-308) 02/07/18 07:10 Current Medications Generic Name Dose Route Start Last Admin Trade Name Freq PRN Reason Stop Dose Admin Acetaminophen 1,000 mg 01/27/18 14:31 02/08/18 09:34 Tylenol - PO 1,000 mg Q6H PRN Administration PAIN LEVEL 1 - 3 Albuterol Sulfate 1 amp 02/07/18 10:10 Ventolin 0.083% Nebulizer Soln - NEB Q4H PRN SHORT OF BREATH/WHEEZING Albuterol/Ipratropium 1 amp 02/07/18 14:00 02/08/18 07:30 Duoneb - NEB 1 amp RTID [facility] Administration Amino Acids 30 ml 01/27/18 17:30 02/08/18 09:34 Prosource No Carb Liquid Pkt PO 30 ml BID@0800,1730 [facility] Administration Benzocaine/Menthol 1 each 01/27/18 14:31 Cepacol Lozenge - MM PRN PRN SORE THROAT Budesonide/Formoterol Fumarate 2 puff 01/27/18 22:00 02/08/18 09:38 Symbicort 160/4.5mcg - IH 2 puff BID [facility] Administration Docusate Sodium 300 mg 01/27/18 22:00 10/09/18 22:03 Colace - PO 300 mg HS [facility] Administration Haloperidol 5 mg 01/27/18 14:31 Haldol Injection (Fast Acting) - IM Q4H PRN AGITATION Heparin Sodium (Porcine) 5,000 unit 02/02/18 14:00 02/08/18 06:07 Heparin - SQ 5,000 unit TID [facility] Administration Ceftriaxone Sodium 2 gm/ 100 mls @ 200 mls/hr 01/30/18 16:15 02/08/18 09:34 Dextrose IVPB 200 mls/hr DAILY [facility] Administration Protocol Daptomycin 500 mg/ Sodium 50 mls @ 50 mls/hr 01/31/18 10:00 02/08/18 10:32 Chloride IVPB 50 mls/hr DAILY [facility] Administration Protocol Nystatin 1 applic 01/27/18 22:00 02/08/18 09:38 Mycostatin Cream - TP 1 applic BID [facility] Administration Ondansetron HCl 4 mg 01/27/18 14:31 Zofran Injection IVPUSH Q6H PRN NAUSEA AND/OR VOMITING Pantoprazole Sodium 40 mg 01/28/18 10:00 02/08/18 09:34 Protonix - PO 40 mg DAILY [facility] Administration Polyethylene Glycol 17 gm 01/27/18 22:00 02/08/18 09:37 Miralax (For Daily Use) - PO Not Given BID [facility] Rifampin 300 mg 01/23/18 10:00 02/08/18 09:34 Rifadin - PO 300 mg BID [facility] Administration Senna 2 tab 01/27/18 22:00 02/07/18 22:10 Senna - PO Not Given HS [facility] Trazodone HCl 150 mg 01/27/18 22:00 02/07/18 22:03 Desyrel - PO 150 mg HS [facility] Administration Home Medications Medication Instructions Recorded Gabapentin [Neurontin] 300 mg PO BID 12/14/17 Omeprazole 40 mg PO DAILY 12/14/17 Prednisone 5 mg PO DAILY 12/14/17 Trazodone HCl 150 mg PO DAILY 12/14/17 Ipratropium 0.02% Nebulizer 1 amp NEB QID 01/26/18 [Atrovent 0.02% Nebulizer -] Albuterol 0.083% Nebulizer Rhoda 1 neb NEB QID 02/07/18 [Ventolin 0.083%] Microbiology 02/02/18 06:10 Blood - Peripheral Venous Blood Culture - Final NO GROWTH AFTER 5 DAYS INCUBATION 02/02/18 06:30 Blood - Peripheral Venous Blood Culture - Final NO GROWTH AFTER 5 DAYS INCUBATION 01/27/18 06:30 Blood - Peripheral Venous Blood Culture - Final NO GROWTH AFTER 5 DAYS INCUBATION 01/27/18 06:00 Blood - Peripheral Venous Blood Culture - Final NO GROWTH AFTER 5 DAYS INCUBATION 01/23/18 07:10 Wound-Other Gram Stain - Final 01/23/18 07:10 Wound-Other Wound Culture - Final Escherichia Coli 01/20/18 15:30 Back Gram Stain - Final 01/20/18 15:30 Back Wound Culture - Final Mr S Aureus 01/20/18 09:50 Wound-Other Gram Stain - Final 01/20/18 09:50 Wound-Other Wound Culture - Final Mr S Aureus 01/17/18 19:35 Abscess Gram Stain - Final 01/17/18 19:35 Abscess Wound Culture - Final Mr S Aureus 01/17/18 19:38 Tissue-Other Gram Stain - Final 01/17/18 19:38 Tissue-Other Tissue Culture - Final Staphylococcus Species 01/17/18 19:38 Tissue-Other Anaerobic Culture - Final 01/17/18 19:34 Abscess Gram Stain - Final 01/17/18 19:34 Abscess Wound Culture - Final Mr S Aureus 01/15/18 09:00 Blood - Peripheral Venous Blood Culture - Final NO GROWTH AFTER 5 DAYS INCUBATION 01/15/18 06:30 Blood - Peripheral Venous Blood Culture - Final NO GROWTH AFTER 5 DAYS INCUBATION 01/12/18 23:40 Blood - Peripheral Venous Blood Culture - Final Mr S Aureus 01/12/18 23:40 Blood - Peripheral Venous Blood Culture - Final Mr S Aureus 01/10/18 19:00 Blood - Peripheral Venous Blood Culture - Final Mr S Aureus 01/10/18 18:00 Blood - Peripheral Venous Blood Culture - Final Mr S Aureus 01/10/18 15:00 Urine - Urine - Catheterized Urine Culture - Final Escherichia Coli ASSESSMENT AND PLAN: This is an 82 year old man a history of COPD, chronic urinary retention, lumbar compression fractures with spinal stenosis who was admitted for lumbar spine surgery. # S/p laminectomy T12-L4 # MRSA bacteremia # E coli UTI # Infected surgical wound # infected hard wear # intermittent # anemia # COPD # chronic urinary retention - No fever. blood cx neg - cont Abx. 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 - dr. Roberts to evaluate the wound - cont nebs and inhaler - bowel regimen - change holder monthly - f/u with urology as out pt - CRP ordered follow the result DVT Px: Heparin
--- NOTE | 2018-02-08 14:26 | PN ---
Physical Exam: SUBJECTIVE: Patient seen and examined this morning at bedside this morning. No new complaints, No over night events. Denies fevers, chills, chest pain, SOB, nausea, vomiting, diarrhea, constipation. OBJECTIVE: Vital Signs Period Temp Pulse Resp BP Sys/Hyman Pulse Ox Last 24 Hr 98.2 F-99.2 F 79-101 18-20 129-162/51-80 95 GENERAL: A&Ox2, NAD resting comfortably with the head of the bed elevated HEAD: NCAT ENT: Oropharynx clear without exudates, moist mucous membranes. NECK: No JVD LUNGS: Clear to auscultation bilaterally HEART: Regular rate and rhythm, S1, S2 without murmur ABDOMEN: Soft, nontender, nondistended, + bowel sounds, no guarding : Reyes draining yellow/orange urine EXTREMITIES: 2+ pulses, 1+ edema R>L SKIN: Lower thoracic spine surgical wound slightly open with surrounding discoloration, No active drainage. Laboratory Results - last 24 hr 02/08/18 06:30 C-Reactive Protein 10.2 H Microbiology 02/02/18 06:10 Blood - Peripheral Venous Blood Culture - Final NO GROWTH AFTER 5 DAYS INCUBATION 02/02/18 06:30 Blood - Peripheral Venous Blood Culture - Final NO GROWTH AFTER 5 DAYS INCUBATION 01/27/18 06:30 Blood - Peripheral Venous Blood Culture - Final NO GROWTH AFTER 5 DAYS INCUBATION 01/27/18 06:00 Blood - Peripheral Venous Blood Culture - Final NO GROWTH AFTER 5 DAYS INCUBATION 01/23/18 07:10 Wound-Other Gram Stain - Final 01/23/18 07:10 Wound-Other Wound Culture - Final Escherichia Coli 01/20/18 15:30 Back Gram Stain - Final 01/20/18 15:30 Back Wound Culture - Final Mr S Aureus 01/20/18 09:50 Wound-Other Gram Stain - Final 01/20/18 09:50 Wound-Other Wound Culture - Final Mr S Aureus 01/17/18 19:35 Abscess Gram Stain - Final 01/17/18 19:35 Abscess Wound Culture - Final Mr S Aureus 01/17/18 19:38 Tissue-Other Gram Stain - Final 01/17/18 19:38 Tissue-Other Tissue Culture - Final Staphylococcus Species 01/17/18 19:38 Tissue-Other Anaerobic Culture - Final 01/17/18 19:34 Abscess Gram Stain - Final 01/17/18 19:34 Abscess Wound Culture - Final S Aureus 01/15/18 09:00 Blood - Peripheral Venous Blood Culture - Final NO GROWTH AFTER 5 DAYS INCUBATION 01/15/18 06:30 Blood - Peripheral Venous Blood Culture - Final NO GROWTH AFTER 5 DAYS INCUBATION 01/12/18 23:40 Blood - Peripheral Venous Blood Culture - Final S Aureus 01/12/18 23:40 Blood - Peripheral Venous Blood Culture - Final S Aureus 01/10/18 19:00 Blood - Peripheral Venous Blood Culture - Final S Aureus 01/10/18 18:00 Blood - Peripheral Venous Blood Culture - Final S Aureus 01/10/18 15:00 Urine - Urine - Catheterized Urine Culture - Final Escherichia Coli Active Medications Acetaminophen (Tylenol -) 1,000 mg PO Q6H PRN PRN Reason: PAIN LEVEL 1 - 3 Last Admin: 02/08/18 09:34 Dose: 1,000 mg Albuterol Sulfate (Ventolin 0.083% Nebulizer Soln -) 1 amp NEB Q4H PRN PRN Reason: SHORT OF BREATH/WHEEZING Albuterol/Ipratropium (Duoneb -) 1 amp NEB RTID [facility] Last Admin: 02/08/18 13:24 Dose: 1 amp Amino Acids (Prosource No Carb Liquid Pkt) 30 ml PO BID@0800,1730 [facility] Last Admin: 02/08/18 09:34 Dose: 30 ml Benzocaine/Menthol (Cepacol Lozenge -) 1 each MM PRN PRN PRN Reason: SORE THROAT Budesonide/Formoterol Fumarate (Symbicort 160/4.5mcg -) 2 puff IH BID [facility] Last Admin: 02/08/18 09:38 Dose: 2 puff Docusate Sodium (Colace -) 300 mg PO HS [facility] Last Admin: 02/07/18 22:03 Dose: 300 mg Haloperidol (Haldol Injection (Fast Acting) -) 5 mg IM Q4H PRN PRN Reason: AGITATION Heparin Sodium (Porcine) (Heparin -) 5,000 unit SQ TID [facility] Last Admin: 02/08/18 06:07 Dose: 5,000 unit Ceftriaxone Sodium 2 gm/ (Dextrose) 100 mls @ 200 mls/hr IVPB DAILY [facility]; Protocol Last Admin: 02/08/18 09:34 Dose: 200 mls/hr Daptomycin 500 mg/ Sodium (Chloride) 50 mls @ 50 mls/hr IVPB DAILY [facility]; Protocol Last Admin: 02/08/18 10:32 Dose: 50 mls/hr Nystatin (Mycostatin Cream -) 1 applic TP BID [facility] Last Admin: 02/08/18 09:38 Dose: 1 applic Ondansetron HCl (Zofran Injection) 4 mg IVPUSH Q6H PRN PRN Reason: NAUSEA AND/OR VOMITING Pantoprazole Sodium (Protonix -) 40 mg PO DAILY [facility] Last Admin: 02/08/18 09:34 Dose: 40 mg Polyethylene Glycol (Miralax (For Daily Use) -) 17 gm PO BID [facility] Last Admin: 02/08/18 09:37 Dose: Not Given Rifampin (Rifadin -) 300 mg PO BID [facility] Last Admin: 02/08/18 09:34 Dose: 300 mg Senna (Senna -) 2 tab PO [facility] Last Admin: 02/07/18 22:10 Dose: Not Given Trazodone HCl (Desyrel -) 150 mg PO HS [facility] Last Admin: 02/07/18 22:03 Dose: 150 mg IMAGING: - Fluoroscopy: Multiple spot radiographs of the lumbar spine obtained in the OR during a posterior fusion procedure are submitted. - CXR (01/04): There is no evidence of vascular congestive changes, pneumonia, pneumothorax, or large pleural effusion. - CXR (01/10): Since the prior study of 01/04/2018 at 1106 hours, there is new atelectasis or infiltrate at the left base. The remainder the study is unchanged. - CXR (02/02): No acute pathology - US Abdomen: Mild hepatomegaly. Moderately distended gallbladder without evidence of cholelithiasis or acute pathology. AAA with stenting. - Echo: LVEF 60-65%, No regional wall motion abnormalities, Trace Pulmonic valve regurg, No pericardial effusion - DUPLEX LE: No DVT is identified involving either leg. - DUPLEX RUE: No sonographic evidence of right arm DVT is identified. ASSESSMENT/PLAN: 82 y/o M w/ PMHx COPD, chronic urinary retention, aortic aneurysm admitted to ICU s/p lumbar Sx complicated by MRSA infection of hardware, bacteremia, UTI PNA 1. Fever -Afebrile -Blood cultures noted above -CXR (02/02): No acute pathology -DUPLEX LE negative -Low threshold to cx if fevers reoccur -Already on ABx, Continue -DUPLEX of RUE negative 2. 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 Lumbar Spinal Stenosis with Lumbar compression fx and kyphosis -s/p T12-L4 laminectomies, T9-pelvis posterior instrumentation, T9-S1 posterolateral arthrodesis (01/03) -s/p posterior fusion with wound vac placement (01/20), Wound vac removed (01/27) -POD#13 s/p thoracolumbar wound debridement with lavage and complex closure -Physical therapy requested -Continue Incentive Spirometry 4. COPD exacerbation -resolved -Continue Symbicort, Duonebs, Oxygen, Chest PT -Pulmonology consulted, Appreciate rec's, will add on LAMA at discharge 5. Normocytic Anemia -Hgb holding at 8.3 -Continue to hold IVF -s/p 3 pRBC units transfused 6. Chronic urinary retention -Patient self-caths at home -Reyes catheter present at this time -Change monthly 7. Constipation -Likely due to Opiate use s/p spinal surgery -Continue colace, senna, and miralax 8. FEN -PO Fluids -Lytes wnl -Regular diet 9. PPx -DVT: SCDs -GI: Protonix, Senna/colace, Miralax Dispo: Ortho to evaluate Wound on Tuesday Visit type - Emergency Visit Emergency Visit: Yes ED Registration Date: 01/03/18 Care time: The patient presented to the Emergency Department on the above date and was hospitalized for further evaluation of their emergent condition. - New Patient This patient is new to me today: No - Critical Care Critical Care patient: No - Discharge Referral Referred to [facility] Med [facility] No
--- NOTE | 2018-02-08 16:19 | PN ---
Progress Note, Physician History of Present Illness: PULMONARY SLEEPING,-RESP DISTRESS - Current Medication List Current Medications: Active Medications Acetaminophen (Tylenol -) 1,000 mg PO Q6H PRN PRN Reason: PAIN LEVEL 1 - 3 Last Admin: 02/08/18 09:34 Dose: 1,000 mg Albuterol Sulfate (Ventolin 0.083% Nebulizer Soln -) 1 amp NEB Q4H PRN PRN Reason: SHORT OF BREATH/WHEEZING Albuterol/Ipratropium (Duoneb -) 1 amp NEB RTID [facility] Last Admin: 02/08/18 13:24 Dose: 1 amp Amino Acids (Prosource No Carb Liquid Pkt) 30 ml PO BID@0800,1730 [facility] Last Admin: 02/08/18 09:34 Dose: 30 ml Benzocaine/Menthol (Cepacol Lozenge -) 1 each MM PRN PRN PRN Reason: SORE THROAT Budesonide/Formoterol Fumarate (Symbicort 160/4.5mcg -) 2 puff IH BID [facility] Last Admin: 02/08/18 09:38 Dose: 2 puff Docusate Sodium (Colace -) 300 mg PO HS [facility] Last Admin: 02/07/18 22:03 Dose: 300 mg Haloperidol (Haldol Injection (Fast Acting) -) 5 mg IM Q4H PRN PRN Reason: AGITATION Heparin Sodium (Porcine) (Heparin -) 5,000 unit SQ TID [facility] Last Admin: 02/08/18 14:25 Dose: 5,000 unit Ceftriaxone Sodium 2 gm/ (Dextrose) 100 mls @ 200 mls/hr IVPB DAILY [facility]; Protocol Last Admin: 02/08/18 09:34 Dose: 200 mls/hr Daptomycin 500 mg/ Sodium (Chloride) 50 mls @ 50 mls/hr IVPB DAILY [facility]; Protocol Last Admin: 02/08/18 10:32 Dose: 50 mls/hr Nystatin (Mycostatin Cream -) 1 applic TP BID [facility] Last Admin: 02/08/18 09:38 Dose: 1 applic Ondansetron HCl (Zofran Injection) 4 mg IVPUSH Q6H PRN PRN Reason: NAUSEA AND/OR VOMITING Pantoprazole Sodium (Protonix -) 40 mg PO DAILY [facility] Last Admin: 02/08/18 09:34 Dose: 40 mg Polyethylene Glycol (Miralax (For Daily Use) -) 17 gm PO BID [facility] Last Admin: 02/08/18 09:37 Dose: Not Given Rifampin (Rifadin -) 300 mg PO BID [facility] Last Admin: 02/08/18 09:34 Dose: 300 mg Senna (Senna -) 2 tab PO [facility] Last Admin: 02/07/18 22:10 Dose: Not Given Trazodone HCl (Desyrel -) 150 mg PO [facility] Last Admin: 02/07/18 22:03 Dose: 150 mg - Objective Vital Signs: Vital Signs Temperature 98.3 F 02/08/18 14:59 Pulse Rate 84 02/08/18 14:59 Respiratory Rate 16 02/08/18 14:59 Blood Pressure 116/70 02/08/18 14:59 O2 Sat by Pulse Oximetry (%) 95 02/07/18 21:00 Constitutional: Yes: Well Nourished, Calm Eyes: Yes: WNL HENT: Yes: WNL Neck: Yes: WNL Cardiovascular: Yes: Regular Rate and Rhythm, S1, S2 Respiratory: Yes: Diminished Gastrointestinal: Yes: Normal Bowel Sounds, Soft Extremities: Yes: WNL Edema: No Labs: CBC, BMP 02/06/18 07:30 02/04/18 08:12 Problem List - Problems (1) Anemia Code(s): D64.9 - ANEMIA, UNSPECIFIED Qualifiers: Anemia type: other cause Other causes of anemia: acute posthemorrhagic Qualified Code(s): D62 - Acute posthemorrhagic anemia (2) Hypercapnic respiratory failure, chronic Code(s): J96.12 - CHRONIC RESPIRATORY FAILURE WITH HYPERCAPNIA (3) MRSA (methicillin resistant staph aureus) culture positive Code(s): Z22.322 - CARRIER OR SUSPECTED CARRIER OF METHICILLIN RESIS STAPH (4) S/P spinal fusion Code(s): Z98.1 - ARTHRODESIS STATUS (5) Status post laminectomy Code(s): Z98.890 - OTHER SPECIFIED POSTPROCEDURAL STATES (6) COPD (chronic obstructive pulmonary disease) Code(s): J44.9 - CHRONIC OBSTRUCTIVE PULMONARY DISEASE, UNSPECIFIED Qualifiers: COPD type: unspecified COPD Qualified Code(s): J44.9 - Chronic obstructive pulmonary disease, unspecified (7) Chronic hypoxemic respiratory failure Code(s): J96.11 - CHRONIC RESPIRATORY FAILURE WITH HYPOXIA Assessment/Plan A/P Lumbar Compression Fractures s/p T12-L4 Laminectomies/T9-pelvis instrumentation/T9-S1 posterior lateral arthrodesis Acute COPD Exacerbation improved Chronic Hypoxic Respiratory Failure Pneumonia Back Wound Infection MRSA Bacteremia Anemia - ABX per ID - inhaled bronchodilators standing and PRN - pain control - incentive spirometry - O2 to keep SpO2 >90% - PO as tolerated - bowel regimen - rehab/PT - DVT prophylaxis Dr Hansen
[2018-02-08] MEDS ORDERED: FLU VACCINE QUAD 60 MCG/0.5 ML (MDV 18-19) IM ONE (18:30)
[2018-02-08] MEDS: DOCUSATE SODIUM 100 MG CAPSULE (FP) PO SCH (21:49)
[2018-02-08] MEDS: SENNOSIDES 8.6MG TABLET (FP) PO SCH (21:51)
[2018-02-08] MEDS: traZODone HCL 50 MG TABLET (FP) PO SCH (21:52)
[2018-02-09] MEDS: HEPARIN NA (PORCINE) 5,000 UNITS/ML 1ML VIAL SQ SCH ×3 (05:16→23:27)
[2018-02-09] MEDS: ALBUTEROL SO4 2.5/IPRATROPIUM 0.5 INH SOL 3 ML VIAL.NEB. NEB SCH ×3 (07:51→19:27)
[2018-02-09] MEDS ORDERED: DEXTROSE 5%-WATER 100 ML IVPB ONE (09:27)
[2018-02-09] MEDS ORDERED: PT OWN MED DRAWER 7, Y5N ONE ×3 (09:27→10:38)
[2018-02-09] MEDS: POLYETHYLENE GLYCOL 3350 119 GM BTL PO SCH ×2 (09:39→23:26)
[2018-02-09] MEDS: AMINO ACIDS/PROTEIN HYDROLYS 30 ML LIQUID.PKT PO SCH ×2 (09:39→17:01)
[2018-02-09] MEDS: PANTOPRAZOLE 40 MG TABLET (FP) PO SCH (09:40)
[2018-02-09] MEDS: NYSTATIN 100,000 UNIT/GM TOPICAL CREAM 15 GM TUBE TP SCH ×2 (09:40→22:00)
[2018-02-09] MEDS: CEFTRIAXONE 2 GM in DEXTROSE 5%-WATER 100 ML IVPB SCH (09:40)
[2018-02-09] MEDS: BUDESONIDE/FORMETEROL FUMARATE 160/4.5 mcg INHALER IH SCH ×2 (09:41→23:27)
--- NOTE | 2018-02-09 10:05 | PN ---
Progress Note (short form) - Note Progress Note: PULMONARY Denies shortness of breath or chest pain. +nonproductive cough. No fevers recorded. Vital Signs Period Temp Pulse Resp BP Sys/Hyman Pulse Ox Last 24 Hr 98.3 F-99.6 F 81-88 16-20 115-140/59-70 94 Gen: NAD at rest Heart: RRR Lung: decreased breath sounds at the bases Abd: soft, nontender Ext: no edema CBC, BMP 02/06/18 07:30 02/04/18 08:12 Active Medications Acetaminophen (Tylenol -) 1,000 mg PO Q6H PRN PRN Reason: PAIN LEVEL 1 - 3 Last Admin: 02/08/18 16:38 Dose: 1,000 mg Albuterol Sulfate (Ventolin 0.083% Nebulizer Soln -) 1 amp NEB Q4H PRN PRN Reason: SHORT OF BREATH/WHEEZING Albuterol/Ipratropium (Duoneb -) 1 amp NEB RTID [facility] Last Admin: 02/09/18 07:51 Dose: 1 amp Amino Acids (Prosource No Carb Liquid Pkt) 30 ml PO BID@0800,1730 [facility] Last Admin: 02/09/18 09:39 Dose: 30 ml Benzocaine/Menthol (Cepacol Lozenge -) 1 each MM PRN PRN PRN Reason: SORE THROAT Budesonide/Formoterol Fumarate (Symbicort 160/4.5mcg -) 2 puff IH BID [facility] Last Admin: 02/09/18 09:41 Dose: 2 puff Docusate Sodium (Colace -) 300 mg PO HS [facility] Last Admin: 02/08/18 21:49 Dose: 300 mg Haloperidol (Haldol Injection (Fast Acting) -) 5 mg IM Q4H PRN PRN Reason: AGITATION Heparin Sodium (Porcine) (Heparin -) 5,000 unit SQ TID [facility] Last Admin: 02/09/18 05:16 Dose: Not Given Ceftriaxone Sodium 2 gm/ (Dextrose) 100 mls @ 200 mls/hr IVPB DAILY [facility]; Protocol Last Admin: 02/09/18 09:40 Dose: 200 mls/hr Daptomycin 500 mg/ Sodium (Chloride) 50 mls @ 50 mls/hr IVPB DAILY [facility]; Protocol Last Admin: 02/08/18 10:32 Dose: 50 mls/hr Nystatin (Mycostatin Cream -) 1 applic TP BID [facility] Last Admin: 02/09/18 09:40 Dose: 1 applic Ondansetron HCl (Zofran Injection) 4 mg IVPUSH Q6H PRN PRN Reason: NAUSEA AND/OR VOMITING Pantoprazole Sodium (Protonix -) 40 mg PO DAILY [facility] Last Admin: 02/09/18 09:40 Dose: 40 mg Polyethylene Glycol (Miralax (For Daily Use) -) 17 gm PO BID [facility] Last Admin: 02/09/18 09:39 Dose: 17 grams Rifampin (Rifadin -) 300 mg PO BID [facility] Last Admin: 02/08/18 21:49 Dose: 300 mg Senna (Senna -) 2 tab PO [facility] Last Admin: 02/08/18 21:51 Dose: 2 tab Trazodone HCl (Desyrel -) 150 mg PO [facility] Last Admin: 02/08/18 21:52 Dose: 150 mg A/P Lumbar Compression Fractures s/p T12-L4 Laminectomies/T9-pelvis instrumentation/T9-S1 posterior lateral arthrodesis Acute COPD Exacerbation improved Chronic Hypoxic Respiratory Failure Pneumonia Back Wound Infection MRSA Bacteremia Anemia - continue antibiotics per ID - surgery f/u - inhaled bronchodilators standing and PRN - pain control - incentive spirometry - O2 to keep SpO2 >90% - PO as tolerated - bowel regimen - rehab/PT - DVT prophylaxis
[2018-02-09] MEDS: DAPTOMYCIN 500 MG in SODIUM CHLORIDE 50 ML IVPB SCH (10:40)
[2018-02-09] MEDS: RIFAMPIN 300 MG CAPSULE PO SCH ×2 (10:40→23:27)
[2018-02-09] MEDS: ACETAMINOPHEN 500 MG TABLET (FP) PO PRN (12:09)
--- NOTE | 2018-02-09 16:49 | PN ---
Physical Exam: SUBJECTIVE: Patient seen and examined this morning at bedside this morning. No new complaints, No over night events. OBJECTIVE: Vital Signs Period Temp Pulse Resp BP Sys/Hyman Pulse Ox Last 24 Hr 98.4 F-99.6 F 81-88 18-20 115-140/59-64 94 GENERAL: A&Ox2, NAD resting comfortably with the head of the bed elevated HEAD: NCAT ENT: Oropharynx clear without exudates, moist mucous membranes. NECK: No JVD LUNGS: Unable to assess posterior breath sounds, Anterior Breath sounds are clear to auscultation bilaterally HEART: Regular rate and rhythm, S1, S2 without murmur ABDOMEN: Soft, nontender, nondistended, + bowel sounds, no guarding : Reyes draining yellow/orange urine EXTREMITIES: 2+ pulses, 1+ edema R>L Microbiology 02/02/18 06:10 Blood - Peripheral Venous Blood Culture - Final NO GROWTH AFTER 5 DAYS INCUBATION 02/02/18 06:30 Blood - Peripheral Venous Blood Culture - Final NO GROWTH AFTER 5 DAYS INCUBATION 01/27/18 06:30 Blood - Peripheral Venous Blood Culture - Final NO GROWTH AFTER 5 DAYS INCUBATION 01/27/18 06:00 Blood - Peripheral Venous Blood Culture - Final NO GROWTH AFTER 5 DAYS INCUBATION 01/23/18 07:10 Wound-Other Gram Stain - Final 01/23/18 07:10 Wound-Other Wound Culture - Final Escherichia Coli 01/20/18 15:30 Back Gram Stain - Final 01/20/18 15:30 Back Wound Culture - Final Mr S Aureus 01/20/18 09:50 Wound-Other Gram Stain - Final 01/20/18 09:50 Wound-Other Wound Culture - Final Mr S Aureus 01/17/18 19:35 Abscess Gram Stain - Final 01/17/18 19:35 Abscess Wound Culture - Final Mr S Aureus 01/17/18 19:38 Tissue-Other Gram Stain - Final 01/17/18 19:38 Tissue-Other Tissue Culture - Final Staphylococcus Species 01/17/18 19:38 Tissue-Other Anaerobic Culture - Final 01/17/18 19:34 Abscess Gram Stain - Final 01/17/18 19:34 Abscess Wound Culture - Final Mr S Aureus 01/15/18 09:00 Blood - Peripheral Venous Blood Culture - Final NO GROWTH AFTER 5 DAYS INCUBATION 01/15/18 06:30 Blood - Peripheral Venous Blood Culture - Final NO GROWTH AFTER 5 DAYS INCUBATION 01/12/18 23:40 Blood - Peripheral Venous Blood Culture - Final S Aureus 01/12/18 23:40 Blood - Peripheral Venous Blood Culture - Final S Aureus 01/10/18 19:00 Blood - Peripheral Venous Blood Culture - Final S Aureus 01/10/18 18:00 Blood - Peripheral Venous Blood Culture - Final S Aureus 01/10/18 15:00 Urine - Urine - Catheterized Urine Culture - Final Escherichia Coli Active Medications Acetaminophen (Tylenol -) 1,000 mg PO Q6H PRN PRN Reason: PAIN LEVEL 1 - 3 Last Admin: 02/09/18 12:09 Dose: 1,000 mg Albuterol Sulfate (Ventolin 0.083% Nebulizer Soln -) 1 amp NEB Q4H PRN PRN Reason: SHORT OF BREATH/WHEEZING Albuterol/Ipratropium (Duoneb -) 1 amp NEB RTID [facility] Last Admin: 02/09/18 13:25 Dose: 1 amp Amino Acids (Prosource No Carb Liquid Pkt) 30 ml PO BID@0800,1730 [facility] Last Admin: 02/09/18 09:39 Dose: 30 ml Benzocaine/Menthol (Cepacol Lozenge -) 1 each MM PRN PRN PRN Reason: SORE THROAT Budesonide/Formoterol Fumarate (Symbicort 160/4.5mcg -) 2 puff IH BID [facility] Last Admin: 02/09/18 09:41 Dose: 2 puff Docusate Sodium (Colace -) 300 mg PO HS [facility] Last Admin: 02/08/18 21:49 Dose: 300 mg Haloperidol (Haldol Injection (Fast Acting) -) 5 mg IM Q4H PRN PRN Reason: AGITATION Heparin Sodium (Porcine) (Heparin -) 5,000 unit SQ TID [facility] Last Admin: 02/09/18 14:36 Dose: Not Given Ceftriaxone Sodium 2 gm/ (Dextrose) 100 mls @ 200 mls/hr IVPB DAILY [facility]; Protocol Last Admin: 02/09/18 09:40 Dose: 200 mls/hr Daptomycin 500 mg/ Sodium (Chloride) 50 mls @ 50 mls/hr IVPB DAILY [facility]; Protocol Last Admin: 02/09/18 10:40 Dose: 50 mls/hr Nystatin (Mycostatin Cream -) 1 applic TP BID [facility] Last Admin: 02/09/18 09:40 Dose: 1 applic Ondansetron HCl (Zofran Injection) 4 mg IVPUSH Q6H PRN PRN Reason: NAUSEA AND/OR VOMITING Pantoprazole Sodium (Protonix -) 40 mg PO DAILY [facility] Last Admin: 02/09/18 09:40 Dose: 40 mg Polyethylene Glycol (Miralax (For Daily Use) -) 17 gm PO BID [facility] Last Admin: 02/09/18 09:39 Dose: 17 grams Rifampin (Rifadin -) 300 mg PO BID [facility] Last Admin: 02/09/18 10:40 Dose: 300 mg Senna (Senna -) 2 tab PO HS [facility] Last Admin: 02/08/18 21:51 Dose: 2 tab Trazodone HCl (Desyrel -) 150 mg PO HS [facility] Last Admin: 02/08/18 21:52 Dose: 150 mg IMAGING: - Fluoroscopy: Multiple spot radiographs of the lumbar spine obtained in the OR during a posterior fusion procedure are submitted. - CXR (01/04): There is no evidence of vascular congestive changes, pneumonia, pneumothorax, or large pleural effusion. - CXR (01/10): Since the prior study of 01/04/2018 at 1106 hours, there is new atelectasis or infiltrate at the left base. The remainder the study is unchanged. - CXR (02/02): No acute pathology - US Abdomen: Mild hepatomegaly. Moderately distended gallbladder without evidence of cholelithiasis or acute pathology. AAA with stenting. - Echo: LVEF 60-65%, No regional wall motion abnormalities, Trace Pulmonic valve regurg, No pericardial effusion - DUPLEX LE: No DVT is identified involving either leg. - DUPLEX RUE: No sonographic evidence of right arm DVT is identified. ASSESSMENT/PLAN: 82 y/o M w/ PMHx COPD, chronic urinary retention, aortic aneurysm admitted to ICU s/p lumbar Sx complicated by MRSA infection of hardware, bacteremia, UTI PNA 1. Fever -Afebrile -Blood cultures noted above -CXR (02/02): No acute pathology -DUPLEX LE negative -Low threshold to cx if fevers reoccur -Already on ABx, Continue -DUPLEX of RUE negative 2. Sepsis -Secondary to UTI, PNA, and Surgical Wound Infection with MRSA -UA (01/10): 211 WBC, 3+ LE -CXR (01/10): New atelectasis or infiltrate at the left base -Echo noted above -S/P incision, drainage, washout of deep thoracic and lumbar spine (01/17) and washout of an infected thoracic/lumber spinal incision S/P posterior fusion with wound vac placement (01/20) -Blood and Urine Cx noted above -Wound Cx: Escherichia Coli -ID Consulted, Appreciate rec's, Will follow weekly esr, crp, cpk; Pt will require residential abx (Rifampin PO, Ceftriaxone IV, Daptomycin for 6-8 weeks starting 01/23) and lifelong suppressive abx -Continue Daptomycin, Rifampin (Started on 01/23), Ceftriaxone (started on 01/30) -Completed Zosyn dose (Started on 01/26, completed 01/30) -Tylenol 1,000 mg PO Q6H 3. Lumbar Spinal Stenosis with Lumbar compression fx and kyphosis -s/p T12-L4 laminectomies, T9-pelvis posterior instrumentation, T9-S1 posterolateral arthrodesis (01/03) -s/p posterior fusion with wound vac placement (01/20), Wound vac removed (01/27) -POD#14 s/p thoracolumbar wound debridement with lavage and complex closure -Physical therapy requested -Continue Incentive Spirometry 4. COPD exacerbation -resolved -Continue Symbicort, Duonebs, Oxygen, Chest PT -Pulmonology consulted, Appreciate rec's, will add on LAMA at discharge 5. Normocytic Anemia -Hgb holding at 8.3 -Continue to hold IVF -s/p 3 pRBC units transfused 6. Chronic urinary retention -Patient self-caths at home -Reyes catheter present at this time -Change monthly 7. Constipation -Likely due to Opiate use s/p spinal surgery -Continue colace, senna, and miralax 8. FEN -PO Fluids -Lytes wnl -Regular diet 9. PPx -DVT: SCDs -GI: Protonix, Senna/colace, Miralax Visit type - Emergency Visit Emergency Visit: Yes ED Registration Date: 01/03/18 Care time: The patient presented to the Emergency Department on the above date and was hospitalized for further evaluation of their emergent condition. - New Patient This patient is new to me today: No - Critical Care Critical Care patient: No
--- NOTE | 2018-02-09 20:56 | PN ---
Teaching Attending Note Name of Resident: Zabrina Sullivan ATTENDING PHYSICIAN STATEMENT I saw and evaluated the patient. I reviewed the resident's note and discussed the case with the resident. I agree with the resident's findings and plan as documented. SUBJECTIVE: No new changes. comfortable. OBJECTIVE: Vital Signs Temperature 97.3 F L 02/09/18 16:15 Pulse Rate 84 02/09/18 16:15 Respiratory Rate 18 02/09/18 16:15 Blood Pressure 114/60 02/09/18 16:15 O2 Sat by Pulse Oximetry (%) 94 L 02/08/18 21:00 Gen: lying in bed with no acute distress HEART: S1S2, RRR ABDOMEN: Soft, non-tender, non-distended, normal BS EXTREMITIES: No edema Neuro and back exam as per ortho. CBCD WBC 7.2 K/mm3 (4.0-10.0) 02/06/18 07:30 RBC 3.21 M/mm3 (4.00-5.60) L 02/06/18 07:30 Hgb 8.7 GM/dL (11.7-16.9) L 02/06/18 07:30 Hct 27.5 % (35.4-49) L 02/06/18 07:30 MCV 85.7 fl (80-96) 02/06/18 07:30 MCHC 31.8 g/dl (32.0-35.9) L 02/06/18 07:30 RDW 14.8 % (11.9-15.9) 02/06/18 07:30 Plt Count 350 K/MM3 (134-434) 02/06/18 07:30 MPV 7.3 fl (7.5-11.1) L 02/06/18 07:30 CMP Sodium 137 mmol/L (136-145) 02/04/18 08:12 Potassium 3.5 mmol/L (3.5-5.1) 02/04/18 08:12 Chloride 104 mmol/L (98-107) 02/04/18 08:12 Carbon Dioxide 29 mmol/L (21-32) 02/04/18 08:12 Anion Gap 5 MMOL/L (8-16) L 02/04/18 08:12 BUN 16 mg/dL (7-18) 02/04/18 08:12 Creatinine 0.8 mg/dL (0.55-1.3) 02/04/18 08:12 Creat Clearance w eGFR > 60 (>60) 02/04/18 08:12 Random Glucose 75 mg/dL (74-106) 02/04/18 08:12 Calcium 8.7 mg/dL (8.5-10.1) 02/04/18 08:12 Total Bilirubin 0.3 mg/dL (0.2-1) 02/04/18 08:12 AST 13 U/L (15-37) L 02/04/18 08:12 ALT 10 U/L (13-61) L 02/04/18 08:12 Alkaline Phosphatase 96 U/L (45-117) 02/04/18 08:12 Total Protein 5.3 g/dl (6.4-8.2) L 02/04/18 08:12 Albumin 1.8 g/dl (3.4-5.0) L 02/04/18 08:12 CARDIAC ENZYMES Creatine Kinase 70 IU/L (26-308) 02/07/18 07:10 Microbiology 02/02/18 06:10 Blood - Peripheral Venous Blood Culture - Final NO GROWTH AFTER 5 DAYS INCUBATION 02/02/18 06:30 Blood - Peripheral Venous Blood Culture - Final NO GROWTH AFTER 5 DAYS INCUBATION 01/27/18 06:30 Blood - Peripheral Venous Blood Culture - Final NO GROWTH AFTER 5 DAYS INCUBATION 01/27/18 06:00 Blood - Peripheral Venous Blood Culture - Final NO GROWTH AFTER 5 DAYS INCUBATION 01/23/18 07:10 Wound-Other Gram Stain - Final 01/23/18 07:10 Wound-Other Wound Culture - Final Escherichia Coli 01/20/18 15:30 Back Gram Stain - Final 01/20/18 15:30 Back Wound Culture - Final Mr S Aureus 01/20/18 09:50 Wound-Other Gram Stain - Final 01/20/18 09:50 Wound-Other Wound Culture - Final Mr S Aureus 01/17/18 19:35 Abscess Gram Stain - Final 01/17/18 19:35 Abscess Wound Culture - Final Mr S Aureus 01/17/18 19:38 Tissue-Other Gram Stain - Final 01/17/18 19:38 Tissue-Other Tissue Culture - Final Staphylococcus Species 01/17/18 19:38 Tissue-Other Anaerobic Culture - Final 01/17/18 19:34 Abscess Gram Stain - Final 01/17/18 19:34 Abscess Wound Culture - Final S Aureus 01/15/18 09:00 Blood - Peripheral Venous Blood Culture - Final NO GROWTH AFTER 5 DAYS INCUBATION 01/15/18 06:30 Blood - Peripheral Venous Blood Culture - Final NO GROWTH AFTER 5 DAYS INCUBATION 01/12/18 23:40 Blood - Peripheral Venous Blood Culture - Final S Aureus 01/12/18 23:40 Blood - Peripheral Venous Blood Culture - Final Mr S Aureus 01/10/18 19:00 Blood - Peripheral Venous Blood Culture - Final Mr S Aureus 01/10/18 18:00 Blood - Peripheral Venous Blood Culture - Final Mr S Aureus 01/10/18 15:00 Urine - Urine - Catheterized Urine Culture - Final Escherichia Coli ASSESSMENT AND PLAN: This is an 82 year old man a history of COPD, chronic urinary retention, lumbar compression fractures with spinal stenosis who was admitted for lumbar spine surgery. # S/p laminectomy T12-L4 # MRSA bacteremia # E coli UTI # Infected surgical wound # infected hard wear # intermittent # anemia # COPD # chronic urinary retention - No fever. repeat blood cx neg - cont Abx. dapto, rifampin and ceftriaxone shelter abx minimum 8 weeks, ID on the case. - dr. Roberts to evaluate the wound - cont nebs and inhaler - bowel regimen - change holder monthly - f/u with urology as out pt - CRP ordered follow the result DVT Px: Heparin
[2018-02-09] MEDS: traZODone HCL 50 MG TABLET (FP) PO SCH (23:26)
[2018-02-09] MEDS: DOCUSATE SODIUM 100 MG CAPSULE (FP) PO SCH (23:26)
[2018-02-09] MEDS: SENNOSIDES 8.6MG TABLET (FP) PO SCH (23:27)
[2018-02-10] MEDS: HEPARIN NA (PORCINE) 5,000 UNITS/ML 1ML VIAL SQ SCH ×3 (07:08→21:44)
[2018-02-10 08:04] LABS: BASO % 0.6 % (0-2.0); EOS % 8.9 % (0-4.5); HEMATOCRIT 26.5 % (35.4-49); HEMOGLOBIN 8.4 GM/dL (11.7-16.9); MCH 26.9 pg (25.7-33.7); MCHC 31.8 g/dl (32.0-35.9); MEAN CELL VOLUME 84.6 fl (80-96); MEAN PLT VOLUME 7.5 fl (7.5-11.1); MONO % 10.7 % (3.8-10.2); NEUT % 56.8 % (42.8-82.8); PLATELET COUNT 308 K/MM3 (134-434); RBC 3.13 M/mm3 (4.00-5.60); RDW 14.6 % (11.9-15.9); WHITE BLOOD COUNT 5.6 K/mm3 (4.0-10.0)
[2018-02-10] MEDS: ALBUTEROL SO4 2.5/IPRATROPIUM 0.5 INH SOL 3 ML VIAL.NEB. NEB SCH ×3 (08:08→20:23)
[2018-02-10 08:25] LABS: ALBUMIN 1.8 g/dl (3.4-5.0); ALK PHOS 100 U/L (45-117); ANION GAP 8 MMOL/L (8-16); BILIRUBIN,TOTAL 0.2 mg/dL (0.2-1); BLOOD UREA NITROGEN 18 mg/dL (7-18); CALCIUM 8.8 mg/dL (8.5-10.1); CHLORIDE 106 mmol/L (98-107); CO2 25 mmol/L (21-32); CREATININE 0.7 mg/dL (0.55-1.3); GLUCOSE,RANDOM 77 mg/dL (74-106); MAGNESIUM 1.9 mg/dL (1.8-2.4); PHOSPHOROUS 2.8 mg/dL (2.5-4.9); POTASSIUM 3.4 mmol/L (3.5-5.1); SGOT/AST 18 U/L (15-37); SGPT/ALT 10 U/L (13-61); SODIUM 139 mmol/L (136-145); TOT PROT 5.2 g/dl (6.4-8.2)
[2018-02-10] MEDS: AMINO ACIDS/PROTEIN HYDROLYS 30 ML LIQUID.PKT PO SCH ×2 (08:56→17:06)
[2018-02-10] MEDS ORDERED: POTASSIUM CHLORIDE TABS 20 MEQ TABLET.ER (FP) PO ONE (09:05)
[2018-02-10] MEDS ORDERED: DEXTROSE 5%-WATER 100 ML IVPB ONE (09:16)
[2018-02-10] MEDS ORDERED: PT OWN MED DRAWER 7, Y5N ONE ×2 (09:16→09:52)
[2018-02-10] MEDS: CEFTRIAXONE 2 GM in DEXTROSE 5%-WATER 100 ML IVPB SCH (09:24)
[2018-02-10] MEDS: POLYETHYLENE GLYCOL 3350 119 GM BTL PO SCH ×2 (09:24→21:45)
[2018-02-10] MEDS: PANTOPRAZOLE 40 MG TABLET (FP) PO SCH (09:24)
[2018-02-10] MEDS: NYSTATIN 100,000 UNIT/GM TOPICAL CREAM 15 GM TUBE TP SCH ×2 (09:24→21:50)
[2018-02-10] MEDS: RIFAMPIN 300 MG CAPSULE PO SCH ×2 (09:25→21:44)
[2018-02-10] MEDS: BUDESONIDE/FORMETEROL FUMARATE 160/4.5 mcg INHALER IH SCH ×2 (09:25→21:50)
[2018-02-10] MEDS: ACETAMINOPHEN 500 MG TABLET (FP) PO PRN ×2 (10:58→17:06)
[2018-02-10] MEDS: DAPTOMYCIN 500 MG in SODIUM CHLORIDE 50 ML IVPB SCH (10:59)
--- NOTE | 2018-02-10 12:40 | PN ---
Progress Note (short form) - Note Progress Note: PULMONARY Resting comfortably Using incentive raphael temp spikes have diminished afeb now Gen: NAD at rest Heart: RRR Lung: scattered rhonchi Abd: soft, nontender Ext: no edema labs/meds/notes/images reviewed ASSESSMENT AND PLAN: Polymicrobial wound infection MRSA bacteremia-negative blood cultures 01/15 ecoli UTI surgical wound infection infected hardware- s/p washout [id number]/1756-[id number] cultures 01/23 COPD s/p ACUTE Exacerbation Chronic Hypoxic Respiratory Failure UTI - triple antibiotics as per ID - wound debridement planned as per surg - inhaled bronchodilators standing and PRN - pain control - incentive spirometry - on antibiotics as per ID - O2 to keep SpO2 >90% - PO as tolerated - DVT prophylaxis Stevenson FERRER MD
--- NOTE | 2018-02-10 13:05 | PN ---
Progress Note (short form) - Note Progress Note: alert awaiting f/u by surgeon nad Vital Signs Period Temp Pulse Resp BP Sys/Hyman Pulse Ox Last 24 Hr 97.3 F-98.9 F 84-92 18-20 114-135/60-65 COR-RRR LUNGS CLEAR abd soft,nt ext no edema incision dry- minimal erythema mid back, no drainage on guaze holder CBC, BMP 02/10/18 06:50 02/10/18 06:50 Microbiology 02/02/18 06:10 Blood - Peripheral Venous Blood Culture - Final NO GROWTH AFTER 5 DAYS INCUBATION 02/02/18 06:30 Blood - Peripheral Venous Blood Culture - Final NO GROWTH AFTER 5 DAYS INCUBATION 01/27/18 06:30 Blood - Peripheral Venous Blood Culture - Final NO GROWTH AFTER 5 DAYS INCUBATION 01/27/18 06:00 Blood - Peripheral Venous Blood Culture - Final NO GROWTH AFTER 5 DAYS INCUBATION 01/23/18 07:10 Wound-Other Gram Stain - Final 01/23/18 07:10 Wound-Other Wound Culture - Final Escherichia Coli 01/20/18 15:30 Back Gram Stain - Final 01/20/18 15:30 Back Wound Culture - Final Mr S Aureus 01/20/18 09:50 Wound-Other Gram Stain - Final 01/20/18 09:50 Wound-Other Wound Culture - Final Mr S Aureus 01/17/18 19:35 Abscess Gram Stain - Final 01/17/18 19:35 Abscess Wound Culture - Final Mr S Aureus 01/17/18 19:38 Tissue-Other Gram Stain - Final 01/17/18 19:38 Tissue-Other Tissue Culture - Final Staphylococcus Species 01/17/18 19:38 Tissue-Other Anaerobic Culture - Final 01/17/18 19:34 Abscess Gram Stain - Final 01/17/18 19:34 Abscess Wound Culture - Final Mr S Aureus 01/15/18 09:00 Blood - Peripheral Venous Blood Culture - Final NO GROWTH AFTER 5 DAYS INCUBATION 01/15/18 06:30 Blood - Peripheral Venous Blood Culture - Final NO GROWTH AFTER 5 DAYS INCUBATION 01/12/18 23:40 Blood - Peripheral Venous Blood Culture - Final Mr S Aureus 01/12/18 23:40 Blood - Peripheral Venous Blood Culture - Final Mr S Aureus 01/10/18 19:00 Blood - Peripheral Venous Blood Culture - Final Mr S Aureus 01/10/18 18:00 Blood - Peripheral Venous Blood Culture - Final Mr S Aureus 01/10/18 15:00 Urine - Urine - Catheterized Urine Culture - Final Escherichia Coli cxray no infiltrate ua negative a/p MRSA bacteremia-negative blood cultures 01/15, 01/27, 02/02 MRSA surgical wound infection infected hardware- s/p washout 01/17-MRSA- wound culture 01/23 with ecoli s/p laminectomy T12 to L4 -01/03 continue ceftriaxone continue daptomycin/rifampin will require usp abx plan 8 weeks and lifelong suppressive antibiotics with bactrim or minocycline to follow- NEEDS WEEKLY LABS WITH CPK AND LFTS WHILE ON ANTIBIOTICS local care to [facility] day #18 antibioitcs crp starting to trend down f/u with surgeon d/w daughter at bedside probiotics Problem List - Problems (1) Fever Code(s): R50.9 - FEVER, UNSPECIFIED (2) Status post laminectomy Code(s): Z98.890 - OTHER SPECIFIED POSTPROCEDURAL STATES
[2018-02-10] MEDS: LACTOBACILLUS ACIDOPHILUS 1 TABLET PO SCH (14:11)
[2018-02-10] MEDS ORDERED: PICC LINE 8 ML FLUSH PROTOCOL IVPUSH PRN (15:16)
--- NOTE | 2018-02-10 19:13 | PN ---
Physical Exam: SUBJECTIVE: Patient seen and examined this morning at bedside this morning. No new complaints, No over night events. Awaiting follow up with surgeon. OBJECTIVE: Vital Signs Period Temp Pulse Resp BP Sys/Hyman Pulse Ox Last 24 Hr 97.3 F-99.2 F 80-92 18-20 114-135/58-65 97 GENERAL: A&Ox2, NAD resting comfortably with the head of the bed elevated HEAD: NCAT ENT: Oropharynx clear without exudates, moist mucous membranes. NECK: No JVD LUNGS: Unable to assess posterior breath sounds, Anterior Breath sounds are clear to auscultation bilaterally HEART: Regular rate and rhythm, S1, S2 without murmur ABDOMEN: Soft, nontender, nondistended, + bowel sounds, no guarding : Reyes draining yellow urine EXTREMITIES: 2+ pulses, 1+ edema R>L Laboratory Results - last 24 hr 02/10/18 02/10/18 06:50 06:50 WBC 5.6 RBC 3.13 L Hgb 8.4 L Hct 26.5 L MCV 84.6 MCH 26.9 MCHC 31.8 L RDW 14.6 Plt Count 308 MPV 7.5 Absolute Neuts (auto) 3.2 Neutrophils % 56.8 Lymphocytes % 23.0 Monocytes % 10.7 H Eosinophils % 8.9 H Basophils % 0.6 Nucleated RBC % 0 Sodium 139 Potassium 3.4 L Chloride 106 Carbon Dioxide 25 Anion Gap 8 BUN 18 Creatinine 0.7 Creat Clearance w eGFR > 60 Random Glucose 77 Calcium 8.8 Phosphorus 2.8 Magnesium 1.9 Total Bilirubin 0.2 AST 18 ALT 10 L Alkaline Phosphatase 100 Total Protein 5.2 L Albumin 1.8 L Microbiology 02/02/18 06:10 Blood - Peripheral Venous Blood Culture - Final NO GROWTH AFTER 5 DAYS INCUBATION 02/02/18 06:30 Blood - Peripheral Venous Blood Culture - Final NO GROWTH AFTER 5 DAYS INCUBATION 01/27/18 06:30 Blood - Peripheral Venous Blood Culture - Final NO GROWTH AFTER 5 DAYS INCUBATION 01/27/18 06:00 Blood - Peripheral Venous Blood Culture - Final NO GROWTH AFTER 5 DAYS INCUBATION 01/23/18 07:10 Wound-Other Gram Stain - Final 01/23/18 07:10 Wound-Other Wound Culture - Final Escherichia Coli 01/20/18 15:30 Back Gram Stain - Final 01/20/18 15:30 Back Wound Culture - Final Mr S Aureus 01/20/18 09:50 Wound-Other Gram Stain - Final 01/20/18 09:50 Wound-Other Wound Culture - Final S Aureus 01/17/18 19:35 Abscess Gram Stain - Final 01/17/18 19:35 Abscess Wound Culture - Final S Aureus 01/17/18 19:38 Tissue-Other Gram Stain - Final 01/17/18 19:38 Tissue-Other Tissue Culture - Final Staphylococcus Species 01/17/18 19:38 Tissue-Other Anaerobic Culture - Final 01/17/18 19:34 Abscess Gram Stain - Final 01/17/18 19:34 Abscess Wound Culture - Final S Aureus 01/15/18 09:00 Blood - Peripheral Venous Blood Culture - Final NO GROWTH AFTER 5 DAYS INCUBATION 01/15/18 06:30 Blood - Peripheral Venous Blood Culture - Final NO GROWTH AFTER 5 DAYS INCUBATION 01/12/18 23:40 Blood - Peripheral Venous Blood Culture - Final S Aureus 01/12/18 23:40 Blood - Peripheral Venous Blood Culture - Final S Aureus 01/10/18 19:00 Blood - Peripheral Venous Blood Culture - Final S Aureus 01/10/18 18:00 Blood - Peripheral Venous Blood Culture - Final S Aureus 01/10/18 15:00 Urine - Urine - Catheterized Urine Culture - Final Escherichia Coli Active Medications Acetaminophen (Tylenol -) 1,000 mg PO Q6H PRN PRN Reason: PAIN LEVEL 1 - 3 Last Admin: 02/10/18 17:06 Dose: 1,000 mg Albuterol Sulfate (Ventolin 0.083% Nebulizer Soln -) 1 amp NEB Q4H PRN PRN Reason: SHORT OF BREATH/WHEEZING Albuterol/Ipratropium (Duoneb -) 1 amp NEB RTID [facility] Last Admin: 02/10/18 13:58 Dose: 1 amp Amino Acids (Prosource No Carb Liquid Pkt) 30 ml PO BID@0800,1730 [facility] Last Admin: 02/10/18 17:06 Dose: 30 ml Benzocaine/Menthol (Cepacol Lozenge -) 1 each MM PRN PRN PRN Reason: SORE THROAT Budesonide/Formoterol Fumarate (Symbicort 160/4.5mcg -) 2 puff IH BID [facility] Last Admin: 02/10/18 09:25 Dose: 2 puff Docusate Sodium (Colace -) 300 mg PO HS [facility] Last Admin: 02/09/18 23:26 Dose: Not Given Haloperidol (Haldol Injection (Fast Acting) -) 5 mg IM Q4H PRN PRN Reason: AGITATION Heparin Sodium (Porcine) (Heparin -) 5,000 unit SQ TID [facility] Last Admin: 02/10/18 14:11 Dose: 5,000 unit IV Flush (Picc Line Flush) 8 ml IVPUSH PRN PRN PRN Reason: Protocol Ceftriaxone Sodium 2 gm/ (Dextrose) 100 mls @ 200 mls/hr IVPB DAILY [facility]; Protocol Last Admin: 02/10/18 09:24 Dose: 200 mls/hr Vancomycin HCl (Vancomycin (Pre-Docked)) 1,000 mg in 250 mls @ 166.667 mls/hr IVPB Q12H [facility]; Protocol Lactobacillus Acidophilus (Bacid -) 1 tab PO DAILY [facility] Last Admin: 02/10/18 14:11 Dose: 1 tab Nystatin (Mycostatin Cream -) 1 applic TP BID [facility] Last Admin: 02/10/18 09:24 Dose: 1 applic Ondansetron HCl (Zofran Injection) 4 mg IVPUSH Q6H PRN PRN Reason: NAUSEA AND/OR VOMITING Pantoprazole Sodium (Protonix -) 40 mg PO DAILY [facility] Last Admin: 02/10/18 09:24 Dose: 40 mg Polyethylene Glycol (Miralax (For Daily Use) -) 17 gm PO BID [facility] Last Admin: 02/10/18 09:24 Dose: 17 grams Rifampin (Rifadin -) 300 mg PO BID [facility] Last Admin: 02/10/18 09:25 Dose: 300 mg Senna (Senna -) 2 tab PO HS [facility] Last Admin: 02/09/18 23:27 Dose: Not Given Trazodone HCl (Desyrel -) 150 mg PO HS [facility] Last Admin: 02/09/18 23:26 Dose: Not Given IMAGING: - Fluoroscopy: Multiple spot radiographs of the lumbar spine obtained in the OR during a posterior fusion procedure are submitted. - CXR (01/04): There is no evidence of vascular congestive changes, pneumonia, pneumothorax, or large pleural effusion. - CXR (01/10): Since the prior study of 01/04/2018 at 1106 hours, there is new atelectasis or infiltrate at the left base. The remainder the study is unchanged. - CXR (02/02): No acute pathology - US Abdomen: Mild hepatomegaly. Moderately distended gallbladder without evidence of cholelithiasis or acute pathology. AAA with stenting. - Echo: LVEF 60-65%, No regional wall motion abnormalities, Trace Pulmonic valve regurg, No pericardial effusion - DUPLEX LE: No DVT is identified involving either leg. - DUPLEX RUE: No sonographic evidence of right arm DVT is identified. ASSESSMENT/PLAN: 82 y/o M w/ PMHx COPD, chronic urinary retention, aortic aneurysm admitted to ICU s/p lumbar Sx complicated by MRSA infection of hardware, bacteremia, UTI PNA 1. Fever -Afebrile -Blood cultures noted above -CXR (02/02): No acute pathology -DUPLEX LE negative -Low threshold to cx if fevers reoccur -Already on ABx, Continue -DUPLEX of RUE negative 2. Sepsis -Secondary to UTI, PNA, and Surgical Wound Infection with MRSA -UA (01/10): 211 WBC, 3+ LE -CXR (01/10): New atelectasis or infiltrate at the left base -Echo noted above -S/P incision, drainage, washout of deep thoracic and lumbar spine (01/17) and washout of an infected thoracic/lumber spinal incision S/P posterior fusion with wound vac placement (01/20) -Blood and Urine Cx noted above -Wound Cx: Escherichia Coli -ID Consulted, Appreciate rec's, Will follow weekly (cbc, cmp, lfts, esr, crp cpk); Pt will require senior living abx (Rifampin PO, Ceftriaxone IV, Vancomycin for 6-8 weeks starting 01/23) and lifelong suppressive abx (po minocycline or bactrim for life) -Completed Daptomycin (01/23-02/10) -Continue Rifampin (Started on 01/23), Ceftriaxone (started on 01/30), Vancomycin (started on 02/10) -Completed Zosyn dose (Started on 01/26, completed 01/30) -Tylenol 1,000 mg PO Q6H -Will Check vanco trough before the 4th dose and weekly thereafter 3. Lumbar Spinal Stenosis with Lumbar compression fx and kyphosis -s/p T12-L4 laminectomies, T9-pelvis posterior instrumentation, T9-S1 posterolateral arthrodesis (01/03) -s/p posterior fusion with wound vac placement (01/20), Wound vac removed (01/27) -POD#15 s/p thoracolumbar wound debridement with lavage and complex closure -Physical therapy requested -Continue Incentive Spirometry 4. COPD exacerbation -resolved -Continue Symbicort, Duonebs, Oxygen, Chest PT -Pulmonology consulted, Appreciate rec's, will add on LAMA at discharge 5. Normocytic Anemia -Hgb holding at 8.3 -Continue to hold IVF -s/p 3 pRBC units transfused 6. Chronic urinary retention -Patient self-caths at home -Reyes catheter present at this time -Change monthly 7. Constipation -Likely due to Opiate use s/p spinal surgery -Continue colace, senna, and miralax 8. FEN -PO Fluids -Lytes wnl -Regular diet 9. PPx -DVT: SCDs -GI: Protonix, Senna/colace, Miralax Visit type - Emergency Visit Emergency Visit: No - New Patient This patient is new to me today: No - Critical Care Critical Care patient: No - Discharge Referral Referred to [facility] No
--- NOTE | 2018-02-10 19:50 | PN ---
Teaching Attending Note Name of Resident: Zabrina Sullivan ATTENDING PHYSICIAN STATEMENT I saw and evaluated the patient. I reviewed the resident's note and discussed the case with the resident. I agree with the resident's findings and plan as documented. SUBJECTIVE: Patient is comfortable with no acute distress. discussed with the daughter who is at bedside. OBJECTIVE: Vital Signs Temperature 98.1 F 02/10/18 16:30 Pulse Rate 85 02/10/18 16:30 Respiratory Rate 20 02/10/18 16:30 Blood Pressure 124/58 L 02/10/18 16:30 O2 Sat by Pulse Oximetry (%) 97 02/10/18 09:00 Gen: lying in bed with no acute distress HEART: S1S2, RRR ABDOMEN: Soft, non-tender, non-distended, normal BS EXTREMITIES: No edema Neuro and back exam as per ortho. CBCD WBC 5.6 K/mm3 (4.0-10.0) 02/10/18 06:50 RBC 3.13 M/mm3 (4.00-5.60) L 02/10/18 06:50 Hgb 8.4 GM/dL (11.7-16.9) L 02/10/18 06:50 Hct 26.5 % (35.4-49) L 02/10/18 06:50 MCV 84.6 fl (80-96) 02/10/18 06:50 MCHC 31.8 g/dl (32.0-35.9) L 02/10/18 06:50 RDW 14.6 % (11.9-15.9) 02/10/18 06:50 Plt Count 308 K/MM3 (134-434) 02/10/18 06:50 MPV 7.5 fl (7.5-11.1) 02/10/18 06:50 CMP Sodium 139 mmol/L (136-145) 02/10/18 06:50 Potassium 3.4 mmol/L (3.5-5.1) L 02/10/18 06:50 Chloride 106 mmol/L (98-107) 02/10/18 06:50 Carbon Dioxide 25 mmol/L (21-32) 02/10/18 06:50 Anion Gap 8 MMOL/L (8-16) 02/10/18 06:50 BUN 18 mg/dL (7-18) 02/10/18 06:50 Creatinine 0.7 mg/dL (0.55-1.3) 02/10/18 06:50 Creat Clearance w eGFR > 60 (>60) 02/10/18 06:50 Random Glucose 77 mg/dL (74-106) 02/10/18 06:50 Calcium 8.8 mg/dL (8.5-10.1) 02/10/18 06:50 Total Bilirubin 0.2 mg/dL (0.2-1) 02/10/18 06:50 AST 18 U/L (15-37) 02/10/18 06:50 ALT 10 U/L (13-61) L 02/10/18 06:50 Alkaline Phosphatase 100 U/L (45-117) 02/10/18 06:50 Total Protein 5.2 g/dl (6.4-8.2) L 02/10/18 06:50 Albumin 1.8 g/dl (3.4-5.0) L 02/10/18 06:50 CARDIAC ENZYMES Creatine Kinase 70 IU/L (26-308) 02/07/18 07:10 Current Medications Generic Name Dose Route Start Last Admin Trade Name Freq PRN Reason Stop Dose Admin Acetaminophen 1,000 mg 01/27/18 14:31 02/10/18 17:06 Tylenol - PO 1,000 mg Q6H PRN Administration PAIN LEVEL 1 - 3 Albuterol Sulfate 1 amp 02/07/18 10:10 Ventolin 0.083% Nebulizer Soln - NEB Q4H PRN SHORT OF BREATH/WHEEZING Albuterol/Ipratropium 1 amp 02/07/18 14:00 02/10/18 13:58 Duoneb - NEB 1 amp RTID [facility] Administration Amino Acids 30 ml 01/27/18 17:30 02/10/18 17:06 Prosource No Carb Liquid Pkt PO 30 ml BID@0800,1730 [facility] Administration Benzocaine/Menthol 1 each 01/27/18 14:31 Cepacol Lozenge - MM PRN PRN SORE THROAT Budesonide/Formoterol Fumarate 2 puff 01/27/18 22:00 02/10/18 09:25 Symbicort 160/4.5mcg - IH 2 puff BID [facility] Administration Docusate Sodium 300 mg 01/27/18 22:00 10/11/18 23:26 Colace - PO Not Given HS [facility] Haloperidol 5 mg 01/27/18 14:31 Haldol Injection (Fast Acting) - IM Q4H PRN AGITATION Heparin Sodium (Porcine) 5,000 unit 02/02/18 14:00 02/10/18 14:11 Heparin - SQ 5,000 unit TID [facility] Administration IV Flush 8 ml 02/10/18 15:16 Picc Line Flush IVPUSH PRN PRN Protocol Ceftriaxone Sodium 2 gm/ 100 mls @ 200 mls/hr 01/30/18 16:15 02/10/18 09:24 Dextrose IVPB 200 mls/hr DAILY [facility] Administration Protocol Vancomycin HCl 1,000 mg in 250 mls @ 166.667 mls/hr 02/10/18 20:00 Vancomycin (Pre-Docked) IVPB Q12H [facility] Protocol Lactobacillus Acidophilus 1 tab 02/10/18 13:15 02/10/18 14:11 Bacid - PO 1 tab DAILY [facility] Administration Nystatin 1 applic 01/27/18 22:00 02/10/18 09:24 Mycostatin Cream - TP 1 applic BID [facility] Administration Ondansetron HCl 4 mg 01/27/18 14:31 Zofran Injection IVPUSH Q6H PRN NAUSEA AND/OR VOMITING Pantoprazole Sodium 40 mg 01/28/18 10:00 02/10/18 09:24 Protonix - PO 40 mg DAILY [facility] Administration Polyethylene Glycol 17 gm 01/27/18 22:00 02/10/18 09:24 Miralax (For Daily Use) - PO 17 grams BID [facility] Administration Rifampin 300 mg 01/23/18 10:00 02/10/18 09:25 Rifadin - PO 300 mg BID [facility] Administration Senna 2 tab 01/27/18 22:00 02/09/18 23:27 Senna - PO Not Given HS [facility] Trazodone HCl 150 mg 01/27/18 22:00 02/09/18 23:26 Desyrel - PO Not Given HS [facility] Home Medications Medication Instructions Recorded RX: Gabapentin [Neurontin] 300 mg PO BID 12/14/17 RX: Omeprazole 40 mg PO DAILY 12/14/17 RX: Prednisone 5 mg PO DAILY 12/14/17 RX: Trazodone HCl 150 mg PO DAILY 12/14/17 Ipratropium 0.02% Nebulizer 1 amp NEB QID 01/26/18 [Atrovent 0.02% Nebulizer -] Albuterol 0.083% Nebulizer Rhoda 1 neb NEB QID 02/07/18 [Ventolin 0.083%] ASSESSMENT AND PLAN: This is an 82 year old man a history of COPD, chronic urinary retention, lumbar compression fractures with spinal stenosis who was admitted for lumbar spine surgery. # S/p laminectomy T12-L4 # MRSA bacteremia # E coli UTI # Infected surgical wound # infected hard wear # intermittent # anemia # COPD # chronic urinary retention -Picc line for Tuesday , waiting for Insurance authorization for rehab. As per Id to continue with Vancomycin/rifampin/Rocephin;day #18 antibioitcs -As per ID: will require shelter abx plan 8 weeks and lifelong suppressive antibiotics with bactrim or minocycline to follow, NEEDS WEEKLY LABS WITH CPK AND LFTS WHILE ON ANTIBIOTICS upon discharge to rehab.f/u with surgeon in a week period. - No fever. repeat blood cx neg - Abx. dapto, rifampin and ceftriaxone switched ti Vanco/rifampin and ceftriaxone for long term care pharmacist abx minimum 8 weeks, ID on the case. - cont nebs and inhaler - bowel regimen - change hodler monthly - f/u with urology as out pt - CRP DVT Px: Heparin
[2018-02-10] MEDS: VANCOMYCIN 1 GRAM (PRE-DOCKED) 1,000 MG/250 ML BAG IVPB SCH (20:43)
[2018-02-10] MEDS: SENNOSIDES 8.6MG TABLET (FP) PO SCH (21:44)
[2018-02-10] MEDS: DOCUSATE SODIUM 100 MG CAPSULE (FP) PO SCH (21:45)
[2018-02-10] MEDS: traZODone HCL 50 MG TABLET (FP) PO SCH (21:45)
[2018-02-11] MEDS: HEPARIN NA (PORCINE) 5,000 UNITS/ML 1ML VIAL SQ SCH ×3 (06:37→21:55)
[2018-02-11] MEDS: ALBUTEROL SO4 2.5/IPRATROPIUM 0.5 INH SOL 3 ML VIAL.NEB. NEB SCH ×3 (08:35→20:50)
[2018-02-11] MEDS ORDERED: DEXTROSE 5%-WATER 100 ML IVPB ONE (09:19)
[2018-02-11] MEDS: VANCOMYCIN 1 GRAM (PRE-DOCKED) 1,000 MG/250 ML BAG IVPB SCH ×2 (10:44→21:53)
[2018-02-11] MEDS: LACTOBACILLUS ACIDOPHILUS 1 TABLET PO SCH (10:45)
[2018-02-11] MEDS: AMINO ACIDS/PROTEIN HYDROLYS 30 ML LIQUID.PKT PO SCH ×2 (10:45→17:39)
[2018-02-11] MEDS: POLYETHYLENE GLYCOL 3350 119 GM BTL PO SCH ×2 (10:46→22:18)
[2018-02-11] MEDS: PANTOPRAZOLE 40 MG TABLET (FP) PO SCH (10:46)
[2018-02-11] MEDS: CEFTRIAXONE 2 GM in DEXTROSE 5%-WATER 100 ML IVPB SCH (10:47)
[2018-02-11] MEDS: NYSTATIN 100,000 UNIT/GM TOPICAL CREAM 15 GM TUBE TP SCH ×2 (11:01→22:21)
[2018-02-11] MEDS: BUDESONIDE/FORMETEROL FUMARATE 160/4.5 mcg INHALER IH SCH ×2 (11:01→22:19)
--- NOTE | 2018-02-11 11:56 | PN ---
Progress Note (short form) - Note Progress Note: Resting in NAD. No shortness of breath or chest pain. No acute events overnight. Intake & Output 02/08/18 02/09/18 02/10/18 02/11/18 23:59 23:59 23:59 23:59 Intake Total 600 700 530 250 Output Total 1400 1000 1050 300 Balance -800 -300 -520 -50 Weight 166 lb 12.8 oz 169 lb 14.4 oz 163 lb 8 oz Last Vital Signs Temp Pulse Resp BP Pulse Ox 99.0 F 79 20 135/79 97 02/11/18 06:00 02/11/18 06:00 02/11/18 06:00 02/11/18 06:00 02/10/18 21:00 Active Medications Acetaminophen (Tylenol -) 1,000 mg PO Q6H PRN PRN Reason: PAIN LEVEL 1 - 3 Last Admin: 02/10/18 17:06 Dose: 1,000 mg Albuterol Sulfate (Ventolin 0.083% Nebulizer Soln -) 1 amp NEB Q4H PRN PRN Reason: SHORT OF BREATH/WHEEZING Albuterol/Ipratropium (Duoneb -) 1 amp NEB RTID [facility] Last Admin: 02/10/18 20:23 Dose: 1 amp Amino Acids (Prosource No Carb Liquid Pkt) 30 ml PO BID@0800,1730 [facility] Last Admin: 02/11/18 10:45 Dose: 30 ml Benzocaine/Menthol (Cepacol Lozenge -) 1 each MM PRN PRN PRN Reason: SORE THROAT Budesonide/Formoterol Fumarate (Symbicort 160/4.5mcg -) 2 puff IH BID [facility] Last Admin: 02/11/18 11:01 Dose: 2 puff Docusate Sodium (Colace -) 300 mg PO HS [facility] Last Admin: 02/10/18 21:45 Dose: 300 mg Haloperidol (Haldol Injection (Fast Acting) -) 5 mg IM Q4H PRN PRN Reason: AGITATION Heparin Sodium (Porcine) (Heparin -) 5,000 unit SQ TID [facility] Last Admin: 02/11/18 06:37 Dose: Not Given IV Flush (Picc Line Flush) 8 ml IVPUSH PRN PRN PRN Reason: Protocol Ceftriaxone Sodium 2 gm/ (Dextrose) 100 mls @ 200 mls/hr IVPB DAILY [facility]; Protocol Last Admin: 02/11/18 10:47 Dose: 200 mls/hr Vancomycin HCl (Vancomycin (Pre-Docked)) 1,000 mg in 250 mls @ 166.667 mls/hr IVPB Q12H [facility]; Protocol Last Admin: 02/11/18 10:44 Dose: 166.667 mls/hr Lactobacillus Acidophilus (Bacid -) 1 tab PO DAILY [facility] Last Admin: 02/11/18 10:45 Dose: 1 tab Nystatin (Mycostatin Cream -) 1 applic TP BID [facility] Last Admin: 02/11/18 11:01 Dose: 1 applic Ondansetron HCl (Zofran Injection) 4 mg IVPUSH Q6H PRN PRN Reason: NAUSEA AND/OR VOMITING Pantoprazole Sodium (Protonix -) 40 mg PO DAILY [facility] Last Admin: 02/11/18 10:46 Dose: 40 mg Polyethylene Glycol (Miralax (For Daily Use) -) 17 gm PO BID [facility] Last Admin: 02/11/18 10:46 Dose: 17 grams Rifampin (Rifadin -) 300 mg PO BID [facility] Last Admin: 02/10/18 21:44 Dose: 300 mg Senna (Senna -) 2 tab PO HS [facility] Last Admin: 02/10/18 21:44 Dose: 2 tab Trazodone HCl (Desyrel -) 150 mg PO HS [facility] Last Admin: 02/10/18 21:45 Dose: 150 mg Gen: NAD at rest Heart: RRR Lung: scattered rhonchi Abd: soft, nontender Ext: no edema A/P Lumbar Compression Fractures s/p T12-L4 Laminectomies/T9-pelvis instrumentation/T9-S1 posterior lateral arthrodesis Acute COPD Exacerbation improved Chronic Hypoxic Respiratory Failure Pneumonia Back Wound Infection MRSA Bacteremia Anemia - ABX per ID - inhaled bronchodilators standing and PRN - pain control - incentive spirometry - O2 to keep SpO2 >90% - PO as tolerated - bowel regimen - rehab/PT - DVT prophylaxis - No Pulmonary contraindication for D/C planning: should add on LAMA at discharge Dr Gross
[2018-02-11] MEDS ORDERED: PT OWN MED DRAWER 7, Y5N ONE ×2 (12:27→21:26)
[2018-02-11] MEDS: RIFAMPIN 300 MG CAPSULE PO SCH ×2 (12:29→21:54)
--- NOTE | 2018-02-11 15:12 | PN ---
Progress Note (short form) - Note Progress Note: patient is doing well without any complaints he stated he is improving AAOX3 s1 and s2 RRR abdomen soft non-tender PERRLA lungs GOOD air entry Sepsis 2/2 UTI, and Surgical Wound Infection with MRSA -UA (01/10): 211 WBC, 3+ LE -S/P incision, drainage, washout of deep thoracic and lumbar spine (01/17) and washout of an infected thoracic/lumber spinal incision S/P posterior fusion with wound vac placement (01/20) -Blood and Urine Cx noted above -Wound Cx: Escherichia Coli -Continue Rifampin (Started on 01/23), Ceftriaxone (started on 01/30), Vancomycin (started on 02/10) -Tylenol 1,000 mg PO Q6H prn -Will Check vanco trough before the 4th dose and weekly thereafter 3. Lumbar Spinal Stenosis with Lumbar compression fx and kyphosis -s/p T12-L4 laminectomies, T9-pelvis posterior instrumentation, T9-S1 posterolateral arthrodesis (01/03) -s/p posterior fusion with wound vac placement (01/20), Wound vac removed (01/27) -POD#15 s/p thoracolumbar wound debridement with lavage and complex closure -Continue Incentive Spirometry 4. COPD exacerbation -resolved -Continue Symbicort, Duonebs, Oxygen, Chest PT 5. Normocytic Anemia -Hgb holding at 8.3 -Continue to hold IVF -s/p 3 pRBC units transfused 6. Chronic urinary retention -Patient self-caths at home -Reyes catheter present at this time -Change monthly 7. Constipation -Likely due to Opiate use s/p spinal surgery -Continue colace, senna, and miralax 8. FEN -PO Fluids -Lytes wnl -Regular diet 9. PPx -DVT: SCDs -GI: Protonix, Senna/colace, Miralax Problem List - Problems (1) Anemia Code(s): D64.9 - ANEMIA, UNSPECIFIED Qualifiers: Anemia type: other cause Other causes of anemia: acute posthemorrhagic Qualified Code(s): D62 - Acute posthemorrhagic anemia (2) S/P spinal fusion Code(s): Z98.1 - ARTHRODESIS STATUS (3) COPD (chronic obstructive pulmonary disease) Code(s): J44.9 - CHRONIC OBSTRUCTIVE PULMONARY DISEASE, UNSPECIFIED Qualifiers: COPD type: unspecified COPD Qualified Code(s): J44.9 - Chronic obstructive pulmonary disease, unspecified (4) Spinal stenosis Code(s): M48.00 - SPINAL STENOSIS, SITE UNSPECIFIED Qualifiers: Spinal region: thoracolumbar Qualified Code(s): M48.05 - Spinal stenosis, thoracolumbar region (5) Fever Code(s): R50.9 - FEVER, UNSPECIFIED (6) Hypercapnic respiratory failure, chronic Code(s): J96.12 - CHRONIC RESPIRATORY FAILURE WITH HYPERCAPNIA (7) Urinary retention Code(s): R33.9 - RETENTION OF URINE, UNSPECIFIED (8) Constipation Code(s): K59.00 - CONSTIPATION, UNSPECIFIED
[2018-02-11] MEDS: DOCUSATE SODIUM 100 MG CAPSULE (FP) PO SCH (21:53)
[2018-02-11] MEDS: traZODone HCL 50 MG TABLET (FP) PO SCH (21:54)
[2018-02-11] MEDS: SENNOSIDES 8.6MG TABLET (FP) PO SCH (21:56)
[2018-02-12] MEDS: HEPARIN NA (PORCINE) 5,000 UNITS/ML 1ML VIAL SQ SCH ×3 (05:52→23:43)
[2018-02-12] MEDS: ALBUTEROL SO4 2.5/IPRATROPIUM 0.5 INH SOL 3 ML VIAL.NEB. NEB SCH (08:15)
[2018-02-12] MEDS: AMINO ACIDS/PROTEIN HYDROLYS 30 ML LIQUID.PKT PO SCH ×2 (08:39→17:21)
[2018-02-12] MEDS ORDERED: PT OWN MED DRAWER 7, Y5N ONE ×2 (09:18→20:24)
[2018-02-12] MEDS: VANCOMYCIN 1 GRAM (PRE-DOCKED) 1,000 MG/250 ML BAG IVPB SCH ×2 (09:19→20:33)
[2018-02-12] MEDS: LACTOBACILLUS ACIDOPHILUS 1 TABLET PO SCH (09:20)
[2018-02-12] MEDS: RIFAMPIN 300 MG CAPSULE PO SCH ×2 (09:20→23:44)
[2018-02-12] MEDS: PANTOPRAZOLE 40 MG TABLET (FP) PO SCH (09:20)
[2018-02-12] MEDS: POLYETHYLENE GLYCOL 3350 119 GM BTL PO SCH ×2 (09:21→23:43)
[2018-02-12] MEDS: NYSTATIN 100,000 UNIT/GM TOPICAL CREAM 15 GM TUBE TP SCH ×3 (09:21→23:42)
[2018-02-12] MEDS: BUDESONIDE/FORMETEROL FUMARATE 160/4.5 mcg INHALER IH SCH ×2 (09:22→23:44)
--- NOTE | 2018-02-12 10:31 | PN ---
Physical Exam: SUBJECTIVE: Patient seen and examined this morning at bedside this morning. No new complaints, No over night events. Awaiting follow up with surgeon. OBJECTIVE: Vital Signs Period Temp Pulse Resp BP Sys/Hyamn Pulse Ox Last 24 Hr 97.9 F-99.2 F 69-98 16-18 114-152/57-78 97 GENERAL: A&Ox2, NAD resting comfortably with the head of the bed elevated HEAD: NCAT ENT: Oropharynx clear without exudates, moist mucous membranes. NECK: No JVD LUNGS: Unable to assess posterior breath sounds, Anterior Breath sounds are clear to auscultation bilaterally HEART: Regular rate and rhythm, S1, S2 without murmur ABDOMEN: Soft, nontender, nondistended, + bowel sounds, no guarding : Reyes draining yellow urine EXTREMITIES: 2+ pulses, No edema Microbiology 02/02/18 06:10 Blood - Peripheral Venous Blood Culture - Final NO GROWTH AFTER 5 DAYS INCUBATION 02/02/18 06:30 Blood - Peripheral Venous Blood Culture - Final NO GROWTH AFTER 5 DAYS INCUBATION 01/27/18 06:30 Blood - Peripheral Venous Blood Culture - Final NO GROWTH AFTER 5 DAYS INCUBATION 01/27/18 06:00 Blood - Peripheral Venous Blood Culture - Final NO GROWTH AFTER 5 DAYS INCUBATION 01/23/18 07:10 Wound-Other Gram Stain - Final 01/23/18 07:10 Wound-Other Wound Culture - Final Escherichia Coli 01/20/18 15:30 Back Gram Stain - Final 01/20/18 15:30 Back Wound Culture - Final Mr S Aureus 01/20/18 09:50 Wound-Other Gram Stain - Final 01/20/18 09:50 Wound-Other Wound Culture - Final Mr S Aureus 01/17/18 19:35 Abscess Gram Stain - Final 01/17/18 19:35 Abscess Wound Culture - Final Mr S Aureus 01/17/18 19:38 Tissue-Other Gram Stain - Final 01/17/18 19:38 Tissue-Other Tissue Culture - Final Staphylococcus Species 01/17/18 19:38 Tissue-Other Anaerobic Culture - Final 01/17/18 19:34 Abscess Gram Stain - Final 01/17/18 19:34 Abscess Wound Culture - Final Mr S Aureus 01/15/18 09:00 Blood - Peripheral Venous Blood Culture - Final NO GROWTH AFTER 5 DAYS INCUBATION 01/15/18 06:30 Blood - Peripheral Venous Blood Culture - Final NO GROWTH AFTER 5 DAYS INCUBATION 01/12/18 23:40 Blood - Peripheral Venous Blood Culture - Final S Aureus 01/12/18 23:40 Blood - Peripheral Venous Blood Culture - Final S Aureus 01/10/18 19:00 Blood - Peripheral Venous Blood Culture - Final S Aureus 01/10/18 18:00 Blood - Peripheral Venous Blood Culture - Final S Aureus 01/10/18 15:00 Urine - Urine - Catheterized Urine Culture - Final Escherichia Coli Active Medications Acetaminophen (Tylenol -) 1,000 mg PO Q6H PRN PRN Reason: PAIN LEVEL 1 - 3 Last Admin: 02/10/18 17:06 Dose: 1,000 mg Albuterol Sulfate (Ventolin 0.083% Nebulizer Soln -) 1 amp NEB Q4H PRN PRN Reason: SHORT OF BREATH/WHEEZING Albuterol/Ipratropium (Duoneb -) 1 amp NEB RTID [facility] Last Admin: 02/12/18 08:15 Dose: 1 amp Amino Acids (Prosource No Carb Liquid Pkt) 30 ml PO BID@0800,1730 [facility] Last Admin: 02/12/18 08:39 Dose: 30 ml Benzocaine/Menthol (Cepacol Lozenge -) 1 each MM PRN PRN PRN Reason: SORE THROAT Budesonide/Formoterol Fumarate (Symbicort 160/4.5mcg -) 2 puff IH BID [facility] Last Admin: 02/12/18 09:22 Dose: 2 puff Docusate Sodium (Colace -) 300 mg PO HS [facility] Last Admin: 02/11/18 21:53 Dose: 300 mg Haloperidol (Haldol Injection (Fast Acting) -) 5 mg IM Q4H PRN PRN Reason: AGITATION Heparin Sodium (Porcine) (Heparin -) 5,000 unit SQ TID [facility] Last Admin: 02/12/18 05:52 Dose: 5,000 unit IV Flush (Picc Line Flush) 8 ml IVPUSH PRN PRN PRN Reason: Protocol Ceftriaxone Sodium 2 gm/ (Dextrose) 100 mls @ 200 mls/hr IVPB DAILY [facility]; Protocol Last Admin: 02/11/18 10:47 Dose: 200 mls/hr Vancomycin HCl (Vancomycin (Pre-Docked)) 1,000 mg in 250 mls @ 166.667 mls/hr IVPB Q12H [facility]; Protocol Last Admin: 02/12/18 09:19 Dose: 166.667 mls/hr Lactobacillus Acidophilus (Bacid -) 1 tab PO DAILY [facility] Last Admin: 02/12/18 09:20 Dose: 1 tab Nystatin (Mycostatin Cream -) 1 applic TP BID [facility] Last Admin: 02/12/18 09:21 Dose: 1 applic Ondansetron HCl (Zofran Injection) 4 mg IVPUSH Q6H PRN PRN Reason: NAUSEA AND/OR VOMITING Pantoprazole Sodium (Protonix -) 40 mg PO DAILY [facility] Last Admin: 02/12/18 09:20 Dose: 40 mg Polyethylene Glycol (Miralax (For Daily Use) -) 17 gm PO BID [facility] Last Admin: 02/12/18 09:21 Dose: 17 grams Rifampin (Rifadin -) 300 mg PO BID [facility] Last Admin: 02/12/18 09:20 Dose: 300 mg Senna (Senna -) 2 tab PO HS [facility] Last Admin: 02/11/18 21:56 Dose: 2 tab Trazodone HCl (Desyrel -) 150 mg PO HS [facility] Last Admin: 02/11/18 21:54 Dose: 150 mg IMAGING: - Fluoroscopy: Multiple spot radiographs of the lumbar spine obtained in the OR during a posterior fusion procedure are submitted. - CXR (01/04): There is no evidence of vascular congestive changes, pneumonia, pneumothorax, or large pleural effusion. - CXR (01/10): Since the prior study of 01/04/2018 at 1106 hours, there is new atelectasis or infiltrate at the left base. The remainder the study is unchanged. - CXR (02/02): No acute pathology - US Abdomen: Mild hepatomegaly. Moderately distended gallbladder without evidence of cholelithiasis or acute pathology. AAA with stenting. - Echo: LVEF 60-65%, No regional wall motion abnormalities, Trace Pulmonic valve regurg, No pericardial effusion - DUPLEX LE: No DVT is identified involving either leg. - DUPLEX RUE: No sonographic evidence of right arm DVT is identified. ASSESSMENT/PLAN: 82 y/o M w/ PMHx COPD, chronic urinary retention, aortic aneurysm admitted to ICU s/p lumbar Sx complicated by MRSA infection of hardware, bacteremia, UTI PNA 1. Fever -Afebrile -Blood cultures noted above -CXR (02/02): No acute pathology -DUPLEX LE negative -Low threshold to cx if fevers reoccur -Already on ABx, Continue -DUPLEX of RUE negative 2. Sepsis -Secondary to UTI, PNA, and Surgical Wound Infection with MRSA -UA (01/10): 211 WBC, 3+ LE -CXR (01/10): New atelectasis or infiltrate at the left base -Echo noted above -S/P incision, drainage, washout of deep thoracic and lumbar spine (01/17) and washout of an infected thoracic/lumber spinal incision S/P posterior fusion with wound vac placement (01/20) -Blood and Urine Cx noted above -Wound Cx: Escherichia Coli -ID Consulted, Appreciate rec's, Will follow weekly (cbc, cmp, lfts, esr, crp cpk); Pt will require exterminator helper termite abx (Rifampin PO, Ceftriaxone IV, Vancomycin for 6-8 weeks starting 01/23) and lifelong suppressive abx (po minocycline or bactrim for life) -Completed Daptomycin (01/23-02/10) -Continue Rifampin (Started on 01/23), Ceftriaxone (started on 01/30), Vancomycin (started on 02/10) -Completed Zosyn dose (Started on 01/26, completed 01/30) -Tylenol 1,000 mg PO Q6H -Will Check vanco trough before the 4th dose and weekly thereafter 3. Lumbar Spinal Stenosis with Lumbar compression fx and kyphosis -s/p T12-L4 laminectomies, T9-pelvis posterior instrumentation, T9-S1 posterolateral arthrodesis (01/03) -s/p posterior fusion with wound vac placement (01/20), Wound vac removed (01/27) -s/p thoracolumbar wound debridement with lavage and complex closure -Physical therapy requested -Continue Incentive Spirometry 4. COPD exacerbation -resolved -Continue Symbicort, Duonebs, Oxygen, Chest PT -Pulmonology consulted, Appreciate rec's, will add on LAMA at discharge 5. Normocytic Anemia -Hgb stable -Continue to hold IVF -s/p 3 pRBC units transfused 6. Chronic urinary retention -Patient self-caths at home -Reyes catheter present at this time -Change monthly 7. Constipation -Likely due to Opiate use s/p spinal surgery -Continue colace, senna, and miralax 8. FEN -PO Fluids -Lytes wnl -Regular diet 9. PPx -DVT: SCDs -GI: Protonix, Senna/colace, Miralax Visit type - Emergency Visit Emergency Visit: Yes ED Registration Date: 01/03/18 Care time: The patient presented to the Emergency Department on the above date and was hospitalized for further evaluation of their emergent condition. - New Patient This patient is new to me today: No - Critical Care Critical Care patient: No - Discharge Referral Referred to [facility] No
[2018-02-12] MEDS: CEFTRIAXONE 2 GM in DEXTROSE 5%-WATER 100 ML IVPB SCH (11:01)
--- NOTE | 2018-02-12 11:14 | PN ---
Progress Note (short form) - Note Progress Note: Resting in NAD. Reports feeling overall better. No shortness of breath or chest pain. No acute events overnight. Intake & Output 02/09/18 02/10/18 02/11/18 02/12/18 23:59 23:59 23:59 23:59 Intake Total 700 530 500 Output Total 1000 1050 1300 300 Balance -300 -520 -800 -300 Weight 166 lb 12.8 oz 169 lb 14.4 oz 163 lb 8 oz 167 lb 2 oz Last Vital Signs Temp Pulse Resp BP Pulse Ox 98 F 98 H 18 152/75 97 02/12/18 02:00 02/12/18 02:00 02/11/18 22:00 02/11/18 22:00 02/11/18 21:00 Active Medications Acetaminophen (Tylenol -) 1,000 mg PO Q6H PRN PRN Reason: PAIN LEVEL 1 - 3 Last Admin: 02/10/18 17:06 Dose: 1,000 mg Albuterol Sulfate (Ventolin 0.083% Nebulizer Soln -) 1 amp NEB Q4H PRN PRN Reason: SHORT OF BREATH/WHEEZING Albuterol/Ipratropium (Duoneb -) 1 amp NEB RTID [facility] Last Admin: 02/12/18 08:15 Dose: 1 amp Amino Acids (Prosource No Carb Liquid Pkt) 30 ml PO BID@0800,1730 [facility] Last Admin: 02/12/18 08:39 Dose: 30 ml Benzocaine/Menthol (Cepacol Lozenge -) 1 each MM PRN PRN PRN Reason: SORE THROAT Budesonide/Formoterol Fumarate (Symbicort 160/4.5mcg -) 2 puff IH BID [facility] Last Admin: 02/12/18 09:22 Dose: 2 puff Docusate Sodium (Colace -) 300 mg PO HS [facility] Last Admin: 02/11/18 21:53 Dose: 300 mg Haloperidol (Haldol Injection (Fast Acting) -) 5 mg IM Q4H PRN PRN Reason: AGITATION Heparin Sodium (Porcine) (Heparin -) 5,000 unit SQ TID [facility] Last Admin: 02/12/18 05:52 Dose: 5,000 unit IV Flush (Picc Line Flush) 8 ml IVPUSH PRN PRN PRN Reason: Protocol Ceftriaxone Sodium 2 gm/ (Dextrose) 100 mls @ 200 mls/hr IVPB DAILY [facility]; Protocol Last Admin: 02/12/18 11:01 Dose: 200 mls/hr Vancomycin HCl (Vancomycin (Pre-Docked)) 1,000 mg in 250 mls @ 166.667 mls/hr IVPB Q12H [facility]; Protocol Last Admin: 02/12/18 09:19 Dose: 166.667 mls/hr Lactobacillus Acidophilus (Bacid -) 1 tab PO DAILY [facility] Last Admin: 02/12/18 09:20 Dose: 1 tab Nystatin (Mycostatin Cream -) 1 applic TP BID [facility] Last Admin: 02/12/18 09:21 Dose: 1 applic Ondansetron HCl (Zofran Injection) 4 mg IVPUSH Q6H PRN PRN Reason: NAUSEA AND/OR VOMITING Pantoprazole Sodium (Protonix -) 40 mg PO DAILY [facility] Last Admin: 02/12/18 09:20 Dose: 40 mg Polyethylene Glycol (Miralax (For Daily Use) -) 17 gm PO BID [facility] Last Admin: 02/12/18 09:21 Dose: 17 grams Rifampin (Rifadin -) 300 mg PO BID [facility] Last Admin: 02/12/18 09:20 Dose: 300 mg Senna (Senna -) 2 tab PO HS [facility] Last Admin: 02/11/18 21:56 Dose: 2 tab Trazodone HCl (Desyrel -) 150 mg PO HS [facility] Last Admin: 02/11/18 21:54 Dose: 150 mg Gen: NAD at rest Heart: RRR Lung: scattered rhonchi Abd: soft, nontender Ext: no edema A/P Lumbar Compression Fractures s/p T12-L4 Laminectomies/T9-pelvis instrumentation/T9-S1 posterior lateral arthrodesis Acute COPD Exacerbation improved Chronic Hypoxic Respiratory Failure Pneumonia Back Wound Infection MRSA Bacteremia Anemia - Surgical follow up - ABX per ID - inhaled bronchodilators standing and PRN - pain control - incentive spirometry - O2 to keep SpO2 >90% - PO as tolerated - bowel regimen - rehab/PT - DVT prophylaxis - No Pulmonary contraindication for D/C planning: should add on LAMA at discharge Dr Gross
--- NOTE | 2018-02-12 11:40 | PN ---
Teaching Attending Note Name of Resident: Zabrina Sulliavn ATTENDING PHYSICIAN STATEMENT I saw and evaluated the patient. I reviewed the resident's note and discussed the case with the resident. I agree with the resident's findings and plan as documented. SUBJECTIVE: OBJECTIVE: ASSESSMENT AND PLAN: AAOX3 s1 and s2 RRR abdomen soft non-tender PERRLA lungs GOOD air entry Sepsis 2/2 UTI, and Surgical Wound Infection with MRSA -UA (01/10): 211 WBC, 3+ LE -S/P incision, drainage, washout of deep thoracic and lumbar spine (01/17) and washout of an infected thoracic/lumber spinal incision S/P posterior fusion with wound vac placement (01/20) -Blood and Urine Cx noted above -Wound Cx: Escherichia Coli -Continue Rifampin (Started on 01/23), Ceftriaxone (started on 01/30), Vancomycin (started on 02/10) -Tylenol 1,000 mg PO Q6H prn -Will Check vanco trough before the 4th dose and weekly thereafter 3. Lumbar Spinal Stenosis with Lumbar compression fx and kyphosis -s/p T12-L4 laminectomies, T9-pelvis posterior instrumentation, T9-S1 posterolateral arthrodesis (01/03) -s/p posterior fusion with wound vac placement (01/20), Wound vac removed (01/27) -POD#15 s/p thoracolumbar wound debridement with lavage and complex closure -Continue Incentive Spirometry 4. COPD exacerbation -resolved -Continue Symbicort, Duonebs, Oxygen, Chest PT 5. Normocytic Anemia -Hgb holding at 8.3 -Continue to hold IVF -s/p 3 pRBC units transfused 6. Chronic urinary retention -Patient self-caths at home -Reyes catheter present at this time -Change monthly 7. Constipation -Likely due to Opiate use s/p spinal surgery -Continue colace, senna, and miralax 8. FEN -PO Fluids -Lytes wnl -Regular diet 9. PPx -DVT: SCDs -GI: Protonix, Senna/colace, Miralax Problem List - Problems (1) Anemia Code(s): D64.9 - ANEMIA, UNSPECIFIED Qualifiers: Anemia type: other cause Other causes of anemia: acute posthemorrhagic Qualified Code(s): D62 - Acute posthemorrhagic anemia (2) S/P spinal fusion Code(s): Z98.1 - ARTHRODESIS STATUS (3) COPD (chronic obstructive pulmonary disease) Code(s): J44.9 - CHRONIC OBSTRUCTIVE PULMONARY DISEASE, UNSPECIFIED Qualifiers: COPD type: unspecified COPD Qualified Code(s): J44.9 - Chronic obstructive pulmonary disease, unspecified (4) Spinal stenosis Code(s): M48.00 - SPINAL STENOSIS, SITE UNSPECIFIED Qualifiers: Spinal region: thoracolumbar Qualified Code(s): M48.05 - Spinal stenosis, thoracolumbar region (5) Fever Code(s): R50.9 - FEVER, UNSPECIFIED (6) Hypercapnic respiratory failure, chronic Code(s): J96.12 - CHRONIC RESPIRATORY FAILURE WITH HYPERCAPNIA (7) Urinary retention Code(s): R33.9 - RETENTION OF URINE, UNSPECIFIED (8) Constipation Code(s): K59.00 - CONSTIPATION, UNSPECIFIED
[2018-02-12] MEDS: SENNOSIDES 8.6MG TABLET (FP) PO SCH (23:43)
[2018-02-12] MEDS: traZODone HCL 50 MG TABLET (FP) PO SCH (23:43)
[2018-02-12] MEDS: DOCUSATE SODIUM 100 MG CAPSULE (FP) PO SCH (23:44)
[2018-02-13] MEDS: HEPARIN NA (PORCINE) 5,000 UNITS/ML 1ML VIAL SQ SCH ×2 (06:31→14:40)
[2018-02-13 07:16] LABS: ANION GAP 8 MMOL/L (8-16); BLOOD UREA NITROGEN 14 mg/dL (7-18); CHLORIDE 104 mmol/L (98-107); CO2 26 mmol/L (21-32); CREATININE 0.6 mg/dL (0.55-1.3); GLUCOSE,RANDOM 80 mg/dL (74-106); MAGNESIUM 1.7 mg/dL (1.8-2.4); PHOSPHOROUS 3.3 mg/dL (2.5-4.9); POTASSIUM 3.9 mmol/L (3.5-5.1); SODIUM 138 mmol/L (136-145)
[2018-02-13] MEDS: ALBUTEROL SO4 2.5/IPRATROPIUM 0.5 INH SOL 3 ML VIAL.NEB. NEB SCH ×2 (08:57→14:23)
[2018-02-13] MEDS ORDERED: PT OWN MED DRAWER 7, Y5N ONE (10:54)
[2018-02-13] MEDS: CEFTRIAXONE 2 GM in DEXTROSE 5%-WATER 100 ML IVPB SCH (10:58)
[2018-02-13] MEDS: PANTOPRAZOLE 40 MG TABLET (FP) PO SCH (10:59)
[2018-02-13] MEDS: RIFAMPIN 300 MG CAPSULE PO SCH (10:59)
[2018-02-13] MEDS: LACTOBACILLUS ACIDOPHILUS 1 TABLET PO SCH (10:59)
[2018-02-13] MEDS ORDERED: MAGNESIUM SULF 50% (8.12 MEQ/2 ML-1 GM VIAL) IVPB ONE (11:00)
[2018-02-13] MEDS: NYSTATIN 100,000 UNIT/GM TOPICAL CREAM 15 GM TUBE TP SCH (11:02)
[2018-02-13] MEDS: POLYETHYLENE GLYCOL 3350 119 GM BTL PO SCH (11:02)
[2018-02-13] MEDS: BUDESONIDE/FORMETEROL FUMARATE 160/4.5 mcg INHALER IH SCH (11:03)
[2018-02-13] MEDS: AMINO ACIDS/PROTEIN HYDROLYS 30 ML LIQUID.PKT PO SCH (11:03)
--- NOTE | 2018-02-13 11:05 | PN ---
Progress Note (short form) - Note Progress Note: Resting in NAD. Noted periods of confusion overnight. No shortness of breath or chest pain. Intake & Output 02/10/18 02/11/18 02/12/18 02/13/18 23:59 23:59 23:59 23:59 Intake Total 530 500 350 250 Output Total 1050 1300 1000 400 Balance -520 -800 -650 -150 Weight 169 lb 14.4 oz 163 lb 8 oz 167 lb 2 oz 167 lb 6.4 oz Last Vital Signs Temp Pulse Resp BP Pulse Ox 98.4 F 99 H 18 147/73 97 02/13/18 09:10 02/13/18 09:10 02/13/18 09:10 02/13/18 09:10 02/12/18 21:00 Active Medications Acetaminophen (Tylenol -) 1,000 mg PO Q6H PRN PRN Reason: PAIN LEVEL 1 - 3 Last Admin: 02/10/18 17:06 Dose: 1,000 mg Albuterol Sulfate (Ventolin 0.083% Nebulizer Soln -) 1 amp NEB Q4H PRN PRN Reason: SHORT OF BREATH/WHEEZING Albuterol/Ipratropium (Duoneb -) 1 amp NEB RTID [facility] Last Admin: 02/13/18 08:57 Dose: 1 amp Amino Acids (Prosource No Carb Liquid Pkt) 30 ml PO BID@0800,1730 [facility] Last Admin: 02/12/18 17:21 Dose: 30 ml Benzocaine/Menthol (Cepacol Lozenge -) 1 each MM PRN PRN PRN Reason: SORE THROAT Budesonide/Formoterol Fumarate (Symbicort 160/4.5mcg -) 2 puff IH BID [facility] Last Admin: 02/12/18 23:44 Dose: 2 puff Docusate Sodium (Colace -) 300 mg PO HS [facility] Last Admin: 02/12/18 23:44 Dose: 300 mg Haloperidol (Haldol Injection (Fast Acting) -) 5 mg IM Q4H PRN PRN Reason: AGITATION Heparin Sodium (Porcine) (Heparin -) 5,000 unit SQ TID [facility] Last Admin: 02/13/18 06:31 Dose: 5,000 unit IV Flush (Picc Line Flush) 8 ml IVPUSH PRN PRN PRN Reason: Protocol Ceftriaxone Sodium 2 gm/ (Dextrose) 100 mls @ 200 mls/hr IVPB DAILY [facility]; Protocol Last Admin: 02/12/18 11:01 Dose: 200 mls/hr Vancomycin HCl (Vancomycin (Pre-Docked)) 1,000 mg in 250 mls @ 166.667 mls/hr IVPB Q12H [facility]; Protocol Last Admin: 02/12/18 20:33 Dose: 166.667 mls/hr Lactobacillus Acidophilus (Bacid -) 1 tab PO DAILY [facility] Last Admin: 02/12/18 09:20 Dose: 1 tab Nystatin (Mycostatin Cream -) 1 applic TP BID [facility] Last Admin: 02/12/18 23:42 Dose: 1 applic Ondansetron HCl (Zofran Injection) 4 mg IVPUSH Q6H PRN PRN Reason: NAUSEA AND/OR VOMITING Pantoprazole Sodium (Protonix -) 40 mg PO DAILY [facility] Last Admin: 02/12/18 09:20 Dose: 40 mg Polyethylene Glycol (Miralax (For Daily Use) -) 17 gm PO BID [facility] Last Admin: 02/12/18 23:43 Dose: 17 grams Rifampin (Rifadin -) 300 mg PO BID [facility] Last Admin: 02/12/18 23:44 Dose: 300 mg Senna (Senna -) 2 tab PO HS [facility] Last Admin: 02/12/18 23:43 Dose: 2 tab Trazodone HCl (Desyrel -) 150 mg PO HS [facility] Last Admin: 02/12/18 23:43 Dose: 150 mg Gen: NAD at rest Heart: RRR Lung: scattered rhonchi Abd: soft, nontender Ext: no edema Laboratory Results - last 24 hr 02/13/18 02/13/18 06:00 09:00 Sodium 138 Potassium 3.9 Chloride 104 Carbon Dioxide 26 Anion Gap 8 BUN 14 Creatinine 0.6 Creat Clearance w eGFR > 60 Random Glucose 80 Calcium 9.0 Phosphorus 3.3 Magnesium 1.7 L Vancomycin Pre-Dose 15.9 L A/P Lumbar Compression Fractures s/p T12-L4 Laminectomies/T9-pelvis instrumentation/T9-S1 posterior lateral arthrodesis Acute COPD Exacerbation improved Chronic Hypoxic Respiratory Failure Pneumonia Back Wound Infection MRSA Bacteremia Anemia - Surgical follow up - ABX per ID - inhaled bronchodilators standing and PRN - pain control - incentive spirometry - O2 to keep SpO2 >90% - PO as tolerated - bowel regimen - rehab/PT - DVT prophylaxis - No Pulmonary contraindication for D/C planning: should add on LAMA at discharge Dr Gross
[2018-02-13] MEDS: VANCOMYCIN 1 GRAM (PRE-DOCKED) 1,000 MG/250 ML BAG IVPB SCH (11:35)
[2018-02-13] MEDS: ACETAMINOPHEN 500 MG TABLET (FP) PO PRN (12:37)
--- NOTE | 2018-02-13 15:02 | PN ---
Progress Note (short form) - Note Progress Note: alert picc line placed today awaiting surgery to f/u on back wound Vital Signs Period Temp Pulse Resp BP Sys/Hyman Pulse Ox Last 24 Hr 97.9 F-98.9 F 84-99 18-18 135-147/63-73 95-97 cor-rrr lungs clear abd soft,nt ext no edema holder intact CBC, BMP 02/10/18 06:50 02/13/18 06:00 Microbiology 02/02/18 06:10 Blood - Peripheral Venous Blood Culture - Final NO GROWTH AFTER 5 DAYS INCUBATION 02/02/18 06:30 Blood - Peripheral Venous Blood Culture - Final NO GROWTH AFTER 5 DAYS INCUBATION 01/27/18 06:30 Blood - Peripheral Venous Blood Culture - Final NO GROWTH AFTER 5 DAYS INCUBATION 01/27/18 06:00 Blood - Peripheral Venous Blood Culture - Final NO GROWTH AFTER 5 DAYS INCUBATION 01/23/18 07:10 Wound-Other Gram Stain - Final 01/23/18 07:10 Wound-Other Wound Culture - Final Escherichia Coli 01/20/18 15:30 Back Gram Stain - Final 01/20/18 15:30 Back Wound Culture - Final Mr S Aureus 01/20/18 09:50 Wound-Other Gram Stain - Final 01/20/18 09:50 Wound-Other Wound Culture - Final Mr S Aureus 01/17/18 19:35 Abscess Gram Stain - Final 01/17/18 19:35 Abscess Wound Culture - Final Mr S Aureus 01/17/18 19:38 Tissue-Other Gram Stain - Final 01/17/18 19:38 Tissue-Other Tissue Culture - Final Staphylococcus Species 01/17/18 19:38 Tissue-Other Anaerobic Culture - Final 01/17/18 19:34 Abscess Gram Stain - Final 01/17/18 19:34 Abscess Wound Culture - Final Mr S Aureus 01/15/18 09:00 Blood - Peripheral Venous Blood Culture - Final NO GROWTH AFTER 5 DAYS INCUBATION 01/15/18 06:30 Blood - Peripheral Venous Blood Culture - Final NO GROWTH AFTER 5 DAYS INCUBATION 01/12/18 23:40 Blood - Peripheral Venous Blood Culture - Final Mr S Aureus 01/12/18 23:40 Blood - Peripheral Venous Blood Culture - Final Mr S Aureus 01/10/18 19:00 Blood - Peripheral Venous Blood Culture - Final Mr S Aureus 01/10/18 18:00 Blood - Peripheral Venous Blood Culture - Final S Aureus 01/10/18 15:00 Urine - Urine - Catheterized Urine Culture - Final Escherichia Coli cxray no infiltrate ua negative a/p infected hardware s/p laminectomy T12-L4- 01/03/18 MRSA bacteremia-negative blood cultures 01/15, 01/27, 02/02, TTE- negative for veg MRSA surgical wound infection ECOLI in wound culture 01/23 infected hardware- s/p washout 01/17-MRSA- continue ceftriaxone continue vancomycin/rifampin will require long term abx plan 8 weeks and lifelong suppressive antibiotics with bactrim or minocycline to follow- NEEDS WEEKLY LABS AND LFTS WHILE ON ANTIBIOTICS, WEEKLY ESR/CRP local care to sacral wound day #21 antibiotics-plan total 8 weeks d/c rifampin if lfts increase d/w daughter at bedside probiotics for the next several months d/w resident can f/u if needed in the office with Dr Jim [phone] Problem List - Problems (1) Fever Code(s): R50.9 - FEVER, UNSPECIFIED (2) Status post laminectomy Code(s): Z98.890 - OTHER SPECIFIED POSTPROCEDURAL STATES
[2018-02-13 15:29] VITALS: BP 128/76; PULSE 74; TEMP 97.8
--- NOTE | 2018-02-13 15:46 | DS ---
Physical Exam: SUBJECTIVE: Patient seen and examined this morning at bedside this morning. No new complaints, No over night events. OBJECTIVE: Vital Signs Period Temp Pulse Resp BP Sys/Hyman Pulse Ox Last 24 Hr 97.8 F-98.9 F 74-99 17-18 128-147/63-76 95-97 PHYSICAL EXAM GENERAL: A&Ox3, NAD HEAD: NCAT ENT: Oropharynx clear without exudates, moist mucous membranes. NECK: No JVD LUNGS: Clear to auscultation bilaterally HEART: Regular rate and rhythm, S1, S2 without murmur ABDOMEN: Soft, nontender, nondistended, + bowel sounds : Holder draining yellow/orange urine EXTREMITIES: 2+ pulses, 1+ edema SKIN: Lower thoracic spine surgical wound slightly open with surrounding discoloration, No active drainage. LABS Laboratory Last Values WBC 5.6 K/mm3 (4.0-10.0) 02/10/18 06:50 RBC 3.13 M/mm3 (4.00-5.60) L 02/10/18 06:50 Hgb 8.4 GM/dL (11.7-16.9) L 02/10/18 06:50 Hct 26.5 % (35.4-49) L 02/10/18 06:50 MCV 84.6 fl (80-96) 02/10/18 06:50 MCH 26.9 pg (25.7-33.7) 02/10/18 06:50 MCHC 31.8 g/dl (32.0-35.9) L 02/10/18 06:50 RDW 14.6 % (11.9-15.9) 02/10/18 06:50 Plt Count 308 K/MM3 (134-434) 02/10/18 06:50 MPV 7.5 fl (7.5-11.1) 02/10/18 06:50 Absolute Neuts (auto) 3.2 K/mm3 (1.5-8.0) 02/10/18 06:50 Neutrophils % 56.8 % (42.8-82.8) 02/10/18 06:50 Neutrophils % (Manual) 45.5 % (42.8-82.8) 01/07/18 07:00 Band Neutrophils % 0.0 % 01/07/18 07:00 Lymphocytes % 23.0 % (8-40) 02/10/18 06:50 Lymphocytes % (Manual) 28.3 % (8-40) 01/07/18 07:00 Monocytes % 10.7 % (3.8-10.2) H 02/10/18 06:50 Monocytes % (Manual) 22 % (3.8-10.2) H 01/07/18 07:00 Eosinophils % 8.9 % (0-4.5) H 02/10/18 06:50 Eosinophils % (Manual) 3.0 % (0-4.5) 01/07/18 07:00 Basophils % 0.6 % (0-2.0) 02/10/18 06:50 Basophils % (Manual) 0.0 % (0-2.0) 01/07/18 07:00 Myelocytes % (Man) 0 % (0-2) 01/07/18 07:00 Promyelocytes % (Man) 0 % (0-2) 01/07/18 07:00 Blast Cells % (Manual) 0 % (0-0) 01/07/18 07:00 Nucleated RBC % 0 % (0-0) 02/10/18 06:50 Metamyelocytes 0 % (0-2) 01/07/18 07:00 Hypochromia 1+ 01/07/18 07:00 Platelet Estimate Adequate 01/27/18 06:20 Platelet Comment Mod plt clumping 01/27/18 06:20 Polychromasia 0 01/07/18 07:00 Poikilocytosis 1+ 01/07/18 07:00 Anisocytosis 0 01/07/18 07:00 Microcytosis 0 01/07/18 07:00 Macrocytosis 0 01/07/18 07:00 ESR 83 mm/hr (0-20) H 02/03/18 08:00 Sodium 138 mmol/L (136-145) 02/13/18 06:00 Potassium 3.9 mmol/L (3.5-5.1) 02/13/18 06:00 Chloride 104 mmol/L (98-107) 02/13/18 06:00 Carbon Dioxide 26 mmol/L (21-32) 02/13/18 06:00 Anion Gap 8 MMOL/L (8-16) 02/13/18 06:00 BUN 14 mg/dL (7-18) 02/13/18 06:00 Creatinine 0.6 mg/dL (0.55-1.3) 02/13/18 06:00 Creat Clearance w eGFR > 60 (>60) 02/13/18 06:00 Random Glucose 80 mg/dL (74-106) 02/13/18 06:00 Lactic Acid 0.7 mmol/L (0.0-2.0) 01/10/18 16:25 Calcium 9.0 mg/dL (8.5-10.1) 02/13/18 06:00 Phosphorus 3.3 mg/dL (2.5-4.9) 02/13/18 06:00 Magnesium 1.7 mg/dL (1.8-2.4) L 02/13/18 06:00 Total Bilirubin 0.2 mg/dL (0.2-1) 02/10/18 06:50 AST 18 U/L (15-37) 02/10/18 06:50 ALT 10 U/L (13-61) L 02/10/18 06:50 Alkaline Phosphatase 100 U/L (45-117) 02/10/18 06:50 Creatine Kinase 70 IU/L (26-308) 02/07/18 07:10 C-Reactive Protein 10.2 MG/DL (0.00-0.3) H 02/08/18 06:30 Total Protein 5.2 g/dl (6.4-8.2) L 02/10/18 06:50 Albumin 1.8 g/dl (3.4-5.0) L 02/10/18 06:50 Urine Color Charu 02/02/18 06:00 Urine Appearance Clear 02/02/18 06:00 Urine pH 6.0 (5.0-8.0) 02/02/18 06:00 Ur Specific [place] 1.012 (1.001-1.035) 02/02/18 06:00 Urine Protein Negative (NEGATIVE) 02/02/18 06:00 Urine Glucose (UA) Negative (NEGATIVE) 02/02/18 06:00 Urine Ketones Negative (NEGATIVE) 02/02/18 06:00 Urine Blood 1+ (NEGATIVE) H 02/02/18 06:00 Urine Nitrite Negative (NEGATIVE) 02/02/18 06:00 Urine Bilirubin Negative (<2.0 mg/dL) 02/02/18 06:00 Urine Urobilinogen Negative mg/dL (0.2-1.0) 02/02/18 06:00 Ur Leukocyte Esterase Negative (NEGATIVE) 02/02/18 06:00 Urine WBC (Auto) 3 /hpf (3-5) 02/02/18 06:00 Urine RBC (Auto) 2 /hpf (0-3) 02/02/18 06:00 Ur Epithelial Cells Rare /HPF (FEW) 02/02/18 06:00 Urine Bacteria Few /hpf (NONE SEEN) 02/02/18 06:00 Urine Mucus Rare 02/02/18 06:00 Urine Yeast Few 02/02/18 06:00 Random Vancomycin 5.12 ug/ml 01/11/18 07:00 Vancomycin Pre-Dose 15.9 ug/ml (18-26) L 02/13/18 09:00 Blood Type A POSITIVE 01/17/18 07:00 Antibody Screen Negative 01/17/18 07:00 Crossmatch See Detail 01/17/18 07:00 Crossmatch IS Only See Detail 01/17/18 07:00 Microbiology 02/02/18 06:10 Blood - Peripheral Venous Blood Culture - Final NO GROWTH AFTER 5 DAYS INCUBATION 02/02/18 06:30 Blood - Peripheral Venous Blood Culture - Final NO GROWTH AFTER 5 DAYS INCUBATION 01/27/18 06:30 Blood - Peripheral Venous Blood Culture - Final NO GROWTH AFTER 5 DAYS INCUBATION 01/27/18 06:00 Blood - Peripheral Venous Blood Culture - Final NO GROWTH AFTER 5 DAYS INCUBATION 01/23/18 07:10 Wound-Other Gram Stain - Final 01/23/18 07:10 Wound-Other Wound Culture - Final Escherichia Coli 01/20/18 15:30 Back Gram Stain - Final 01/20/18 15:30 Back Wound Culture - Final Mr S Aureus 01/20/18 09:50 Wound-Other Gram Stain - Final 01/20/18 09:50 Wound-Other Wound Culture - Final Mr S Aureus 01/17/18 19:35 Abscess Gram Stain - Final 01/17/18 19:35 Abscess Wound Culture - Final Mr S Aureus 01/17/18 19:38 Tissue-Other Gram Stain - Final 01/17/18 19:38 Tissue-Other Tissue Culture - Final Staphylococcus Species 01/17/18 19:38 Tissue-Other Anaerobic Culture - Final 01/17/18 19:34 Abscess Gram Stain - Final 01/17/18 19:34 Abscess Wound Culture - Final S Aureus 01/15/18 09:00 Blood - Peripheral Venous Blood Culture - Final NO GROWTH AFTER 5 DAYS INCUBATION 01/15/18 06:30 Blood - Peripheral Venous Blood Culture - Final NO GROWTH AFTER 5 DAYS INCUBATION 01/12/18 23:40 Blood - Peripheral Venous Blood Culture - Final S Aureus 01/12/18 23:40 Blood - Peripheral Venous Blood Culture - Final S Aureus 01/10/18 19:00 Blood - Peripheral Venous Blood Culture - Final Mr S Aureus 01/10/18 18:00 Blood - Peripheral Venous Blood Culture - Final S Aureus 01/10/18 15:00 Urine - Urine - Catheterized Urine Culture - Final Escherichia Coli IMAGING: - Fluoroscopy: Multiple spot radiographs of the lumbar spine obtained in the OR during a posterior fusion procedure are submitted. - CXR (01/04): There is no evidence of vascular congestive changes, pneumonia, pneumothorax, or large pleural effusion. - CXR (01/10): Since the prior study of 01/04/2018 at 1106 hours, there is new atelectasis or infiltrate at the left base. The remainder the study is unchanged. - CXR (02/02): No acute pathology - US Abdomen: Mild hepatomegaly. Moderately distended gallbladder without evidence of cholelithiasis or acute pathology. AAA with stenting. - Echo: LVEF 60-65%, No regional wall motion abnormalities, Trace Pulmonic valve regurg, No pericardial effusion - DUPLEX LE: No DVT is identified involving either leg. - DUPLEX RUE: No sonographic evidence of right arm DVT is identified. 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 Patient was admitted to ICU s/ p T12-L4 laminectomies, T9-pelvis posterior instrumentation, and T9-S1 posterolateral arthrodesis. 3 units pRBC's were transfused during his stay. Post -Op, patient was found to have E. Coli wound sepsis for which he underwent aggressive debridements and washout with [place] packing, wound vac placement for 8 days and delayed wound closure. Additionally, his urine culture was positive for E. Coli, Initial blood cultures were positive for MRSA and follow up blood cultures were negative (all noted above). ID was consulted and patient completed a 19 day course of Daptomycin and 5 day course of Zosyn. Patient was started on Rifampin (Started on 01/23), Ceftriaxone (started on 01/30), Vancomycin (started on 02/10) during his hospital stay and was discharged with instructions to complete an additional 5 weeks of each. Patient spiked intermittent fevers for which Cultures were drawn, CXR was taken and Duplex of the b/l LE and RUE (noted above). Patient continued to use his Incentive Spirometer and worked with Physical therapy during his stay. Pulmonology was consulted and recommended adding a LAMA at discharge to his current regimen. Patient continued to use a holder catheter during his hospital course. He remained afebrile, his neurological status improved and his wound healed except for approx. 1 inch wound eschar without drainage. Additionally, patient was made aware that he will need lifelong suppressive abx as per ID recommendations. Patient was discharged to SNF with wound care instructions as per Orthopedics and to follow up with Dr. Roberts in 7-10 days. Minutes to complete discharge: 60 Discharge Summary Reason For Visit: SPINAL STENOSIS, LUMBAR REGION Current Active Problems S/P spinal fusion (Acute) Status post laminectomy (Acute) Anemia (Chronic) Chronic hypoxemic respiratory failure (Chronic) Constipation (Chronic) Hypercapnic respiratory failure, chronic (Chronic) MRSA (methicillin resistant staph aureus) culture positive (Chronic) Urinary retention (Chronic) Condition: Stable - Instructions Diet, Activity, Other Instructions: You were admitted to the hospital for back surgery. You are being discharged to a rehab facility to help strengthen your muscles. Please continue wound care as per Dr. Roberts's recommendations. Dry dressing changes daily. Please follow up with Dr. Roberts in 7-10 days to further evaluate your wound and staple removal. Please continue to ambulate and mobilize as this will help entirely with healing. Continue to advance your diet as tolerate and supplementation to prevent constipation. Your wound culture was positive during your stay. You are being discharged on 3 antibiotics, Ceftriaxone, Rifampin, and Vancomycin to be continued for the next 5 weeks. You will need to have your labs monitored including vancomycin levels, cbc, cmp , lfts, esr, crp every week. The first check of the labs will be in the next 5 days. A script has been provided. If your LFTs rise, please stop the rifampin. Please check a vancomycin trough before the fourth dose and weekly thereafter if stable You will need to follow up with Dr. Lopez, an infectious disease doctor for continued suppressive antibiotics with PO Minocycline or Bactrim for life. Please follow up with your primary care physician in one week. Continue all your other medications as prescribed. You are also being discharged on Symbicort to help with your breathing. Please take 2 puffs twice a day. You are also being discharged on Senna, Colace, and Miralax to help with bowel movements. Please take as prescribed to have a daily bowel movement. Please return to the ER if you have any signs or symptoms of chest pain, shortness of breath, uncontrollable fever, chills, nausea, vomiting, numbness, tingling, or weakness in any part of your body, changes in vision, or slurred speech. Please return to the ER if symptoms persist, worsen, or new symptoms arise. Referrals: Emeterio Chatman MD [Staff Physician] - 1 Week (Follow with Dr. Sullivan at 3pm on Tuesday) Jyoti Lopez MD [Staff Physician] - 2 Weeks Mihir Roberts MD [Staff Physician] - 2 Weeks Disposition: LONG TERM FACILITY - Home Medications Comprehensive Discharge Medication List: Ambulatory Orders Gabapentin [Neurontin] 300 mg PO BID 12/14/17 Omeprazole 40 mg PO DAILY 12/14/17 Prednisone 5 mg PO DAILY 12/14/17 Trazodone HCl 150 mg PO DAILY 12/14/17 Ipratropium 0.02% Nebulizer [Atrovent 0.02% Nebulizer -] 1 amp NEB QID 01/26/18 Albuterol 0.083% Nebulizer Rhoda [Ventolin 0.083% Nebulizer Soln -] 1 neb NEB QID 02/07/18 Amino Acids/Protein Hydrolys [Prosource No Carb Liquid Pkt] 30 ml PO BID@0800, 1730 packet 02/13/18 Budesonide/Formeterol Fumarate [SYMBICORT 160/4.5mcg -] 2 puff IH BID inhaler 02/13/18 Ceftriaxone [Rocephin -] 2 gm IVPB DAILY vial 02/13/18 Docusate Sodium [Colace -] 300 mg PO HS capsule 02/13/18 Miscellaneous Drug Not In Syst [Outpatient Lab Test] 1 each ASDIR #1 misc Polyethylene Glycol 3350 [Miralax 119 gm Btl -] 17 gm PO BID bottle 02/13/18 Rifampin [Rifadin -] 300 mg PO BID capsule 02/13/18 Sennosides [Senna -] 2 tab PO HS tablet 02/13/18 Vancomycin/0.9 % Sod Chloride [Vanco 1 Gram/250 ml-0.9% NaCl] 1 gm IV DAILY 35 Days #30 vial 02/13/18 This patient is new to me today: No Emergency Visit: No Critical Care patient: No - Discharge Referral Referred to [facility] No
--- NOTE | 2018-02-13 16:22 | PN ---
Progress Note (short form) - Note Progress Note: Patient markedly improved. Fully orientated Wound dry. No drainage. Eschar improved. Neuro at baseline. PLAN Nutrition supplementation PT mobilize as often as possible Discharge to rehab Will follow-up as outpatient Discussed with family.
--- NOTE | 2018-02-13 17:22 | PN ---
Teaching Attending Note Name of Resident: Janae Steele ATTENDING PHYSICIAN STATEMENT I saw and evaluated the patient. I reviewed the resident's note and discussed the case with the resident. I agree with the resident's findings and plan as documented. SUBJECTIVE: Seen and examined; exam per resident note. No issues today. Hemodynamically stable and afebrile; team has been working on DC and patient is stable from medicine perspective and per consulting services for discharge. He has reached the maximal benefit from his hospitalization. Please see daily progress notes and resident DC summary for thorough discussion. In brief he was septic from a surgical site infection from laminectomy (T12-L4, MSSA and E Coli growing from wound with MRSA bacteremia, negative FABIO and recent cultures). He will require 8 additional weeks of IV abx per ID and continued wound care. He will require surveilance labs when on abx. OBJECTIVE: Gen: AAOx2, NAD, at baseline per resident team CV: RRR s1/2 no mgr Skin: bandaging CDI HEENT: PERRLA EOMI NC AT Lungs: CTAB, sym expansion ASSESSMENT AND PLAN: 1) Sepsis 2/2 Surgical Wound Infection with MRSA, MSSA, Ecoli; possible initial contribution from UTI -S/P incision, drainage, washout of deep thoracic and lumbar spine (01/17) and washout of an infected thoracic/lumber spinal incision S/P posterior fusion with wound vac placement (01/20). TTE negative, cultures negative to date. Clinically improved. -Continue Rifampin (Started on 01/23), Ceftriaxone (started on 01/30), Vancomycin (started on 02/10). 8 total weeks of abx needed, followed by lifetime treatment with bacterim vs. minocycline to be determined by ID. Please follow up weekly CBC, CMP, ESR, CRP. Rifampin should be DCd if LFTs spike; please followup these labs with PCP/ID. Vanco should be followed in stereotyped sequence. 2) Lumbar Spinal Stenosis with Lumbar compression fx and kyphosis -s/p T12-L4 laminectomies, T9-pelvis posterior instrumentation, T9-S1 posterolateral arthrodesis (01/03) -s/p posterior fusion with wound vac placement (01/20), Wound vac removed (01/27) -POD#15 s/p thoracolumbar wound debridement with lavage and complex closure -Continue Incentive Spirometry as outpatient; I should note in general given his functional status resulting from this and the subsequent complications that the patient is at a high risk of further decompensation. I strongly recommend goals of care discussion being had as an outpatient. 3) COPD exacerbation -resolved (was present initially); pulmonary medicine has cleared for DC. DC on home meds, add pulm recs. 4). Normocytic Anemia -s/p 3 pRBC units transfused; cutoff would be <7. Monitor as outpatient. 5) Chronic urinary retention -Patient self-caths at home; holder catheter present at this time throughout the hospitalization so will DC with holder. He needs to followup with urology as an outpatient or if he wishes return to self cathing. For wound healing cleanliness should be observed. 6) Constipation -Likely due to Opiate use s/p spinal surgery -Continue colace, senna, and miralax Other issues per resident note. Followups include PCP, urology, sgy, ID
== END 2018-02-13 17:20 | DRG 456 ==
LOC: JSAMEDAYSX 01-03 08:09 → JICU 01-03 22:24 → J8W 01-06 15:27 → JICU 01-17 20:02 → J8W 01-25 20:55
PROVIDERS: ADMIT Orthopaedic Surgery Orthopaedic Surgery of the Spine; ATTEND Internal Medicine
PROC: 0SG1071 Fusion of 2 or more Lumbar Vertebral Joints with Autologous Tissue Substitute, Posterior Approach, Posterior Column, Open Approach (ICD-10-PCS; 2018-01-03)
PROC: 0SG3071 Fusion of Lumbosacral Joint with Autologous Tissue Substitute, Posterior Approach, Posterior Column, Open Approach (ICD-10-PCS; 2018-01-03)
PROC: 0QB00ZZ Excision of Lumbar Vertebra, Open Approach (ICD-10-PCS; 2018-01-03)
PROC: 0PB40ZZ Excision of Thoracic Vertebra, Open Approach (ICD-10-PCS; 2018-01-03)
PROC: 07DR3ZZ Extraction of Iliac Bone Marrow, Percutaneous Approach (ICD-10-PCS; 2018-01-03)
PROC: 0RG7071 Fusion of 2 to 7 Thoracic Vertebral Joints with Autologous Tissue Substitute, Posterior Approach, Posterior Column, Open Approach (ICD-10-PCS; principal; 2018-01-03 08:00)
PROC: 30233N1 Transfusion of Nonautologous Red Blood Cells into Peripheral Vein, Percutaneous Approach (ICD-10-PCS; 2018-02-12)
PROC: 02HV33Z Insertion of Infusion Device into Superior Vena Cava, Percutaneous Approach (ICD-10-PCS; 2018-02-13)
DX: M48.56XA Collapsed vertebra, not elsewhere classified, lumbar region, initial encounter for fracture (principal); J18.9 Pneumonia, unspecified organism; A41.51 Sepsis due to Escherichia coli [E. coli]; T84.7XXA Infection and inflammatory reaction due to other internal orthopedic prosthetic devices, implants and grafts, initial encounter; J44.1 Chronic obstructive pulmonary disease with (acute) exacerbation; J96.11 Chronic respiratory failure with hypoxia; D62 Acute posthemorrhagic anemia; N39.0 Urinary tract infection, site not specified; R33.9 Retention of urine, unspecified; K59.00 Constipation, unspecified
CPT/HCPCS: 36415; 36430; 36569; 71045-TC-FY; 76000-TC-FY; 76705-TC; 77001-TC-FY; 80048; 80053; 81003; 81015; 82550; 83605; 83735; 84100; 85025; 85027; 85651; 86140; 86850; 86900; 86901; 86922; 87040; 87070; 87075; 87086; 87186; 87205; 88304-TC; 88305-TC; 88311-TC; 90688; 93306-TC; 93970-TC; 93971; 94010; 94640; 94760; 97116-GP; 97162-GP; C1751; G0480; J0131; J0878; J1644; J7030; P9038; P9058

== ENCOUNTER 2018-02-13 18:04 | Emergency (ER) | payer BC ==
[2018-02-13] MEDS ORDERED: ALBUTEROL SO4 0.083% IH SOL 2.5 MG/3 ML VIAL.NEB. NEB ONE (18:32)
[2018-02-13 18:50] VITALS: BMI 25.9
--- NOTE | 2018-02-13 19:11 | PDOC ---
History of Present Illness - General Chief Complaint: Wheezing Stated Complaint: WHEEZING Time Seen by Provider: 02/13/18 19:10 Past History - Past Medical History Allergies/Adverse Reactions: Allergies Allergy/AdvReac Type Severity Reaction Status Date / Time No Known Allergies Allergy Verified 01/03/18 08:55 Home Medications: Ambulatory Orders Gabapentin [Neurontin] 300 mg PO BID 12/14/17 Omeprazole 40 mg PO DAILY 12/14/17 Prednisone 5 mg PO DAILY 12/14/17 Trazodone HCl 150 mg PO DAILY 12/14/17 Ipratropium 0.02% Nebulizer [Atrovent 0.02% Nebulizer -] 1 amp NEB QID 01/26/18 Albuterol 0.083% Nebulizer Hroda [Ventolin 0.083% Nebulizer Soln -] 1 neb NEB QID 02/07/18 Amino Acids/Protein Hydrolys [Prosource No Carb Liquid Pkt] 30 ml PO BID@0800, 1730 packet 02/13/18 Budesonide/Formeterol Fumarate [SYMBICORT 160/4.5mcg -] 2 puff IH BID inhaler 02/13/18 Ceftriaxone [Rocephin -] 2 gm IVPB DAILY vial 02/13/18 Docusate Sodium [Colace -] 300 mg PO HS capsule 02/13/18 Miscellaneous Drug Not In Syst [Outpatient Lab Test] 1 each ASDIR #1 misc Polyethylene Glycol 3350 [Miralax 119 gm Btl -] 17 gm PO BID bottle 02/13/18 Rifampin [Rifadin -] 300 mg PO BID capsule 02/13/18 Sennosides [Senna -] 2 tab PO HS tablet 02/13/18 Vancomycin/0.9 % Sod Chloride [Vanco 1 Gram/250 ml-0.9% NaCl] 1 gm IV DAILY 35 Days #30 vial 02/13/18 Anemia: No COPD: Yes DVT: No Disorders: Yes (chronic urine retention-SELF CATHETERIZATION) HTN: Yes (HX OF-NO MEDS) - Surgical History Abdominal Surgery: Yes (AAA repair 2017-[facility], abdominal hernia repair) - Immunization History Immunization Up to Date: Yes - Suicide/Smoking/Psychosocial Hx Smoking History: Former smoker Have you smoked in the past 12 months: No If you are a former smoker, when did you quit?: 20 YRS Information on smoking cessation initiated: No Hx Alcohol Use: No Drug/Substance Use Hx: No Substance Use Type: None *Physical Exam - Vital Signs Last Vital Signs Temp Pulse Resp BP Pulse Ox 98.2 F 89 20 138/68 98 02/13/18 18:43 02/13/18 18:43 02/13/18 18:43 02/13/18 18:43 02/13/18 18:43 *DC/Admit/Observation/Transfer - Referrals Referrals: Elias Willis MD [Primary Care Provider] - - Patient Instructions - Post Discharge Activity
--- NOTE | 2018-02-13 19:12 | PDOC ---
History of Present Illness - General Chief Complaint: Wheezing Stated Complaint: WHEEZING Time Seen by Provider: 02/13/18 19:10 History Source: EMS - History of Present Illness Initial Comments: 02/13/18 19:28 82 year old male with spinal stenosis septic from a surgical site infection from laminectomy discharged today from prolonged hospital stay. patient was in transport to [facility] found patient to have wheezing episode , gave nebulizer treatment and returned patient back to the ED for reevaluation. patientat this time alert awake ox1. no respiratory distress and mild wheezing with normal sats. patient has no complaints at this time. 02/13/18 19:36 Past History - Past Medical History Allergies/Adverse Reactions: Allergies Allergy/AdvReac Type Severity Reaction Status Date / Time No Known Allergies Allergy Verified 01/03/18 08:55 Home Medications: Ambulatory Orders RX: Gabapentin [Neurontin] 300 mg PO BID 12/14/17 RX: Omeprazole 40 mg PO DAILY 12/14/17 RX: Prednisone 5 mg PO DAILY 12/14/17 RX: Trazodone HCl 150 mg PO DAILY 12/14/17 RX: Ipratropium 0.02% Nebulizer [Atrovent 0.02% Nebulizer -] 1 amp NEB QID 01/26 RX: Albuterol 0.083% Nebulizer Rhoda [Ventolin 0.083% Nebulizer Soln -] 1 neb NEB QID 02/07/18 Miscellaneous Drug Not In Syst [Outpatient Lab Test] 1 each ASDIR #1 misc RX: Amino Acids/Protein Hydrolys [Prosource No Carb Liquid Pkt] 30 ml PO BID@ 0800,1730 packet 02/13/18 RX: Budesonide/Formeterol Fumarate [SYMBICORT 160/4.5mcg -] 2 puff IH BID inhaler 02/13/18 RX: Ceftriaxone [Rocephin -] 2 gm IVPB DAILY vial 02/13/18 RX: Docusate Sodium [Colace -] 300 mg PO HS capsule 02/13/18 RX: Polyethylene Glycol 3350 [Miralax 119 gm Btl -] 17 gm PO BID bottle RX: Rifampin [Rifadin -] 300 mg PO BID capsule 02/13/18 RX: Sennosides [Senna -] 2 tab PO HS tablet 02/13/18 Vancomycin/0.9 % Sod Chloride [Vanco 1 Gram/250 ml-0.9% NaCl] 1 gm IV DAILY 35 Days #30 vial 02/13/18 Anemia: No COPD: Yes DVT: No Disorders: Yes (chronic urine retention-SELF CATHETERIZATION) HTN: Yes (HX OF-NO MEDS) - Surgical History Abdominal Surgery: Yes (AAA repair 2017-[facility], abdominal hernia repair) - Immunization History Immunization Up to Date: Yes - Suicide/Smoking/Psychosocial Hx Smoking History: Former smoker Have you smoked in the past 12 months: No If you are a former smoker, when did you quit?: 20 YRS Information on smoking cessation initiated: No Hx Alcohol Use: No Drug/Substance Use Hx: No Substance Use Type: None Review of Systems - Review of Systems Able to Perform ROS?: Yes Is the patient limited Erit[place]an proficient: No Constitutional: No: Symptoms Reported, See HPI, Chills, Diaphoresis, Fever, Loss of Appetite, Malaise, Night Sweats, Weakness, Weight Stable, Unintentional Wgt. Loss, Unexplained wgt Loss, Other Respiratory: Yes: Wheezing. No: Symptoms reported, See HPI, Cough, Orthopnea, Shortness of Breath, SOB with Exertion, SOB at Rest, Stridor, Productive cough, Hemoptysis, Other *Physical Exam - Vital Signs Last Vital Signs Temp Pulse Resp BP Pulse Ox 98.2 F 89 20 138/68 98 02/13/18 18:43 02/13/18 18:43 02/13/18 18:43 02/13/18 18:43 02/13/18 18:43 - Physical Exam General Appearance: Yes: Appropriately Dressed Respiratory/Chest: positive: Wheezing (mild wheezing overall clear breath sounds. no retractions no tracypnea) Cardiovascular: positive: Regular Rhythm, Regular Rate Gastrointestinal/Abdominal: positive: Normal Bowel Sounds, Soft Extremity: positive: Normal Capillary Refill Integumentary: positive: Normal Color, Dry, Warm Neurologic: positive: Fully Oriented, Alert, Normal Mood/Affect Progress Note - Progress Note Progress Note: A: wheezing P: chest xray: chronic finding breath sounds clear. will d/c to [facility] as per previous discharge plan. Medical Decision Making - Medical Decision Making 02/13/18 19:38 I spoke to charge nurse Mic rosas at [facility]. patient can be d/naveed to [facility] once he is cleared from the ER. 02/13/18 19:38 *DC/Admit/Observation/Transfer Diagnosis at time of Disposition: Wheezing on auscultation, MRSA (methicillin resistant staph aureus) culture positive Spinal stenosis Qualifiers: Spinal region: lumbar Neurogenic claudication status: unspecified Qualified Code(s): M48.061 - Spinal stenosis, lumbar region without neurogenic claudication COPD (chronic obstructive pulmonary disease) Qualifiers: COPD type: unspecified COPD Qualified Code(s): J44.9 - Chronic obstructive pulmonary disease, unspecified - Discharge Dispostion Disposition: ALF FACILITY - Referrals Referrals: Elias Willis MD [Primary Care Provider] - - Patient Instructions - Post Discharge Activity
[2018-02-13] MEDS ORDERED: ALBUTEROL SO4 2.5/IPRATROPIUM 0.5 INH SOL 3 ML VIAL.NEB. NEB ONE ×2 (19:18→19:55)
[2018-02-13 20:25] VITALS: BP 141/80; PULSE 92; TEMP 97.9
== END 2018-02-13 22:29 ==
LOC: JER 18:04
PROC: 3E0F7GC Introduction of Other Therapeutic Substance into Respiratory Tract, Via Natural or Artificial Opening (ICD-10-PCS; principal; 2018-02-13)
DX: J44.9 Chronic obstructive pulmonary disease, unspecified (principal); M48.061 Spinal stenosis, lumbar region without neurogenic claudication; Z22.322 Carrier or suspected carrier of Methicillin resistant Staphylococcus aureus; Z98.1 Arthrodesis status
CPT/HCPCS: 71045-TC-FY; 94640; 99282-25